=== PATIENT | male | born 1970 | race Caucasian/White ===

== ENCOUNTER 2023-11-16 18:54 | Emergency (ER) | payer BC, SELFPAY ==
[2023-11-16 19:05] VITALS: BP 162/83; PULSE 80; RESP 16; TEMP 36.8; O2SAT 99
--- NOTE | 2023-11-16 19:10 | ED.GENADULT ---
HPI - General Adult General Chief complaint: Skin/Abscess/Foreign Body Stated complaint: Nose Pain Time Seen by Provider: 11/16/23 19:14 Source: patient Mode of arrival: ambulatory Limitations: no limitations History of Present Illness HPI narrative: 53-year-old male presented for complaint of a sore to the right nostril. Onset 2 days. States he has had this same infection before and was told by a appeals officer it is a 'herpetic infection' and needs valacyclovir. Endorses swollen lymph nodes under the chin. Also endorses poor dentition, but denies significant dental pain. Denies any other complaints at this time. Related Data Home Medications Medication Instructions Recorded Confirmed alprazolam 0.5 mg tablet 0.5 mg PO TID 11/16/23 11/16/23 bupropion HCl 75 mg tablet 75 mg PO DAILY 11/16/23 11/16/23 clomiphene citrate 50 mg tablet 50 mg PO 3XW 11/16/23 11/16/23 lisinopril 5 mg tablet 5 mg PO DAILY 11/16/23 11/16/23 testosterone cypionate 200 mg/mL 200 mg IM Q12D 11/16/23 11/16/23 intramuscular oil Allergies Allergy/AdvReac Type Severity Reaction Status Date / Time codeine Allergy Mild Itching Verified 11/16/23 19:15 Review of Systems Review of Systems: CONSTITUTIONAL: Denies body aches, fever, chills, or sweats. EYES: Denies visual changes, redness, or discharge. ENT: reports lymph node swelling Denies rhinorrhea, congestion CARDIOVASCULAR: Denies chest pain, palpitations, or edema. RESPIRATORY: Denies cough or dyspnea. GASTROINTESTINAL: Denies abdominal pain, nausea, vomiting, or diarrhea. SKIN: reports sore in nostril MUSCULOSKELETAL: Denies back pain, joint pain, or myalgia. NEUROLOGIC: Denies headache, numbness, tingling, or weakness. [facility] Past Medical History Medical History (Updated 11/16/23 @ 19:35 by Amara Estes APRN) Hypertension Comments At time of signature, I have reviewed and agree with nursing past medical, surgical, social and family history unless otherwise noted. Please see nursing chart for further information. There is no relevant family history pertinent to the presenting complaint Exam Narrative: GENERAL: Well-appearing HEAD: Normocephalic, atraumatic. EYES: conjunctivae clear, and EOMI. ENT: Mucous membranes moist.Right nare with approx 1cm diameter raised tender lesion, mild serous drainage. Oropharynx without edema, erythema or lesions. NECK: Supple. Submental lymphadenopathy. No erythema or swelling. Full ROM to neck. CHEST: Clear to auscultation. HEART: Regular rate and rhythm. SKIN: Warm, dry. NEURO: Alert and oriented x3. HENMT: Nose image: 1. area of raised lesion right nare Course Course Emergency Course: Patient is aware of diagnosis, understands and agrees to treatment plan. Anticipatory guidance given. Patient agrees to follow-up as directed and is aware of reasons to seek care at the emergency department. Portions of this record may have been created with voice recognition software Level of Care: Express Care Visit Vital Signs Vital signs: Vital Signs Temperature 98.2 F 11/16/23 19:05 Pulse Rate 80 11/16/23 19:05 Respiratory Rate 16 11/16/23 19:05 Blood Pressure 162/83 H 11/16/23 19:05 Pulse Oximetry 99 11/16/23 19:05 Oxygen Delivery Room Air 11/16/23 19:05 Temperature 98.2 F 11/16/23 19:05 Pulse Rate 80 11/16/23 19:05 Respiratory Rate 16 11/16/23 19:05 Blood Pressure 162/83 H 11/16/23 19:05 Pulse Oximetry 99 11/16/23 19:05 Oxygen Delivery Room Air 11/16/23 19:05 Reviewed Medical Decision Making MDM Narrative Medical decision making narrative: Discussed physical exam findings. Pt is adamant he requires valacyclovir for this infection in right nare; will send rx along with Augmentin for possible likely dental infection as well. Discussed risk of danger triangle infection, v/u. Advised supportive measures and signs/symptoms to go to the ER. Pt is appropriate for outpt treat
[2023-11-16 19:19] VITALS: BP 162/83; PULSE 80; RESP 16; TEMP 36.8; O2SAT 99
== END 2023-11-16 19:38 | disposition home or self-care (01) ==
PROVIDERS: Emergency Provider Nurse Practitioner Family
DX: J34.89 Other specified disorders of nose and nasal sinuses (principal); R59.1 Generalized enlarged lymph nodes; K02.9 Dental caries, unspecified; I10 Essential (primary) hypertension; Z79.899 Other long term (current) drug therapy
CPT/HCPCS: 99213; G0463

== ENCOUNTER 2023-12-16 14:25 | Emergency (ER) | payer BC, SELFPAY ==
[2023-12-16 14:33] VITALS: BP 167/83; PULSE 64; RESP 18; TEMP 36.6; O2SAT 100
--- NOTE | 2023-12-16 14:38 | ED.SKABFB ---
HPI - Skin/Abscess/Foreign Bdy General Chief complaint: Skin/Abscess/Foreign Body Stated complaint: Nose Pain Time Seen by Provider: 12/16/23 14:27 Source: patient Mode of arrival: ambulatory Limitations: no limitations History of Present Illness HPI narrative: Patient is a 53-year-old male who presents with wound to left nare. Patient was seen here 11/15 and was given antiviral and also treated with antibiotic for dental infection. Patient was seen by dentist this week and had tooth extracted. Patient to start on amoxicillin from dentist. Patient has PCP appointment the end of the month. Denies any fever, chills, nausea, vomiting, diarrhea. Reports wound is tender to touch hand crusted over. Related Data Home Medications Medication Instructions Recorded Confirmed alprazolam 0.5 mg tablet 0.5 mg PO TID 11/16/23 12/16/23 bupropion HCl 75 mg tablet 75 mg PO DAILY 11/16/23 12/16/23 clomiphene citrate 50 mg tablet 50 mg PO 3XW 11/16/23 12/16/23 lisinopril 5 mg tablet 5 mg PO DAILY 11/16/23 12/16/23 testosterone cypionate 200 mg/mL 200 mg IM Q12D 11/16/23 12/16/23 intramuscular oil amoxicillin 500 mg tablet 500 mg PO DAILY 12/16/23 12/16/23 Allergies Allergy/AdvReac Type Severity Reaction Status Date / Time codeine Allergy Mild Itching Verified 12/16/23 14:35 Review of Systems Review of Systems: All systems reviewed & are unremarkable except as noted in HPI and below Constitutional: Constitutional: Denies body ache(s), Denies chills, Denies fatigue, Denies fever(s), Denies headache(s), Denies malaise and Denies weakness Eyes: Eyes: Denies blurry vision, Denies irritation and Denies loss of vision ENT: Denies otalgia, Denies headache(s), Denies nasal discharge, Denies sinus pain and Denies sore throat Cardiovascular: Cardiovascular: Denies chest pain, Denies irregular heart rhythm and Denies dyspnea Respiratory: Respiratory: Denies dyspnea Gastrointestinal: Gastrointestinal: Denies abdominal pain, Denies melena, Denies hematochezia, Denies diarrhea, Denies nausea and Denies vomiting Musculoskeletal: Musculoskeletal: Denies back pain, Denies myalgias and Denies arthralgias Integumentary/Breasts: Skin/Breast: Denies pruritus, Denies rash and Reports wounds Neurologic: Denies headache(s), Denies loss of vision and Denies weakness Psychiatric: Psychiatric: Reports no additional psychiatric complaints Endocrine: Endocrine: Denies fatigue PMFSH Past Medical History Medical History Hypertension Comments At time of signature, agree with nursing past medical, surgical, social and family history. There is no relevant family history pertinent to the presenting complaint. Exam Const: General: cooperative, healthy appearing, comfortable, no acute distress and well nourished Nutritional Appearance: well nourished Orientation/consciousness: patient oriented x3 Limitations: no limitations HENMT: Head: normal to inspection, normocephalic and atraumatic Ears: hearing grossly normal bilaterally and external ears normal Face/Nose/Sinus: Normal external nose present, normal facial exam and face symmetric Nose image: 1. Area of tenderness, redness and honey-colored crusting. No active drainage Face and sinus: normal facial exam and face symmetric Mouth: Yes lip normal Eyes: General: appearance normal, both eyes and all related structures Alignment and Position: alignment normal and position normal Periorbital: periorbital findings normal Eyelids: eyelids normal Pupils: Equal, round and reactive pupils present EOM: EOMs intact bilaterally Neck: Neck: normal visual inspection, full ROM and supple Chest: Chest palpation & inspection: normal inspection of the chest Resp: Effort & Inspection: normal respiratory effort and able to speak in complete sentences Auscultation: clear to auscultation bilaterally Cardio: Rate: regular rate Rhythm: regular rhythm
== END 2023-12-16 15:10 | disposition home or self-care (01) ==
PROVIDERS: Emergency Provider Nurse Practitioner Family
DX: S01.20XA Unspecified open wound of nose, initial encounter (principal); X58.XXXA Exposure to other specified factors, initial encounter; I10 Essential (primary) hypertension
CPT/HCPCS: 87070; 87075; 87205; 87252; 99213; G0463

== ENCOUNTER 2024-08-16 12:40 | Emergency (ER) | payer BC, SELFPAY ==
--- NOTE | ~2024-08-16 | XR_ITS ---
XR ankle RT min 3V Ordering provider: Carmella Betancourt MD History: . injury, right ankle pain, wrapped due to previous ER visit . Comparison: None. FINDINGS: BONES: Oblique fracture is seen in the lateral malleolus extending to the joint space. No significant displacement. Possibility of fracture of the posterior malleolus of the tibia is not excluded. Follo w sided lower lumbar mass JOINT SPACES: Normal. SOFT TISSUES: Soft tissue swelling seen over the lateral malleolus. IMPRESSION: Fracture in the lateral malleolus. Reviewed, dictated and finalized at location A. TITATIVE DEVELOPER
[2024-08-16 12:46] VITALS: BP 141/70; PULSE 87; RESP 16; TEMP 37.1; O2SAT 99
--- NOTE | 2024-08-16 14:26 | ED_ITS ---
HPI - Extremity Injury (Lower) General Chief Complaint: Extremity Injury, Lower Stated Complaint: injury to leg Time Seen by Provider: 08/16/24 14:26 Focused HPI: This is a 54 year old male that presents to the ER for orthopedics referral. Reports he slipped in the bathroom and sustained a fracture to his right fibula. He was seen at another hospital, but their orthopedics doctor was not able to see him for a week which prompted him to be seen. He has a splint in place and has been using a walker. GENERAL: Well-appearing, well-nourished, and in no acute distress. HEAD: Normocephalic, atraumatic. CHEST: Clear to auscultation. ?No respiratory distress. HEART: Regular rate and rhythm.? NEURO: ?Alert and oriented x3. Patient screened in triage and initial orders placed.? ?Additional care and disposition to be based upon?diagnostic testing and treatment. Related Data Home Medications ?Medication ?Instructions ?Recorded ?Confirmed ?Last Taken ?Type alprazolam 0.5 mg tablet 0.5 mg PO TID 11/16/23 12/16/23 Unknown History bupropion HCl 75 mg tablet 75 mg PO DAILY 11/16/23 12/16/23 Unknown History clomiphene citrate 50 mg tablet 50 mg PO 3XW 11/16/23 12/16/23 Unknown History lisinopril 5 mg tablet 5 mg PO DAILY 11/16/23 12/16/23 Unknown History testosterone cypionate 200 mg/mL 200 mg IM Q12D 11/16/23 12/16/23 Unknown History intramuscular oil amoxicillin 500 mg tablet 500 mg PO DAILY 12/16/23 12/16/23 Unknown History Allergies Allergy/AdvReac Type Severity Reaction Status Date / Time codeine Allergy Mild Itching Verified 12/16/23 14:35 Review of Systems Review of Systems: CONSTITUTIONAL: Denies fever MUSCULOSKELETAL: Reports joint pain, and myalgia. NEUROLOGIC: Denies numbness, or weakness. All systems reviewed & are unremarkable except as noted in HPI and below PMFSH Past Medical History Medical History Hypertension Social History Social History (Updated 08/16/24 @ 17:08 by Belinda Zaldivar PA-C) Substance use: never Exam Narrative: GENERAL: Well-appearing, well-nourished, and in no acute distress. HEAD: Normocephalic, atraumatic. EYES: EOMI. EXTREMITIES: Splint in place to the right ankle SKIN: Warm, dry, no rash. NEURO: No focal deficits. Alert and oriented x3. PSYCH: Normal mood and affect Course Course Emergency Course: patient updated on workup and agrees with plan of care Vital Signs Vital signs: Vital Signs Temperature 98.7 F 08/16/24 12:46 Pulse Rate 87 08/16/24 12:46 Respiratory Rate 16 08/16/24 12:46 Blood Pressure 141/70 H 08/16/24 12:46 Pulse Oximetry 99 08/16/24 12:46 Temperature 97.8 F 08/16/24 17:15 Pulse Rate 76 08/16/24 17:15 Respiratory Rate 16 08/16/24 17:15 Blood Pressure 132/80 08/16/24 17:15 Pulse Oximetry 98 08/16/24 17:15 MDM - Extremity Injury (Lower) MDM Narrative Medical decision making narrative: Patient presents to the emergency department for a right ankle fracture, for second evaluation. Reporting wants referral to an orthopedic doctor. He was started a seen at another facility already. His splint was replaced today. Will be given follow-up with our orthopedics doctor if needed. He was given warnings to return to the ER Differential Diagnosis Differential diagnosis: Likely ankle fracture Imaging Data Radiologist's impression: ITS Impressions Ankle X-Ray 08/16/24 13:18 IMPRESSION: Fracture in the lateral malleolus. Critical Care Time Critical Care Time Critical Care Time: No Discharge Plan Discharge Clinical Impression: Closed fracture of distal end of right tibia Qualifiers: Encounter type: subsequent encounter Fracture morphology: unspecified fracture morphology Fracture healing: with routine healing Qualified Code(s): S82.301D - Unspecified fracture of lower end of right tibia, subsequent encounter for closed fracture with routine healing Patient Disposition: Home, Self-Care Condition: Stable Instructions: Ankle Fracture (ED) Additional Instructions: Return to the ER if you experience fever, redness and swelling of your extremit y, numbness or any other symptoms that are concerning to you Wear splint. No weight on the affected leg. Ice and elevate extremity. Pain medication as needed and directed. Follow up with orthopedics for further care. Patient Language: Albanian Prescriptions: No Action clomiphene citrate 50 mg tablet 50 mg PO 3XW alprazolam 0.5 mg tablet 0.5 mg PO TID bupropion HCl 75 mg tablet 75 mg PO DAILY lisinopril 5 mg tablet 5 mg PO DAILY testosterone cypionate 200 mg/mL oil 200 mg IM Q12D amoxicillin 500 mg tablet 500 mg PO DAILY mupirocin 2 % ointment 1 applic topical BID Qty: 15 0RF Follow-up/Referrals: PHYSICIAN NOT ON STAFF,NONSTAFF [Non-Staff] - Micah Walters MD [Physician] -
[2024-08-16 17:15] VITALS: BP 132/80; PULSE 76; RESP 16; TEMP 36.6; O2SAT 98
== END 2024-08-16 17:18 | disposition home or self-care (01) ==
PROVIDERS: Emergency Provider Physician Assistant
DX: S82.61XA Displaced fracture of lateral malleolus of right fibula, initial encounter for closed fracture (principal); I10 Essential (primary) hypertension; Z79.899 Other long term (current) drug therapy; W01.0XXA Fall on same level from slipping, tripping and stumbling without subsequent striking against object, initial encounter
CPT/HCPCS: 29515; 73610; 99284

== ENCOUNTER 2024-08-19 12:06 | Outpatient (CLI) | payer BC, SELFPAY ==
--- NOTE | 2024-08-19 12:15 | ECG_ITS ---
Test Date: 2024-08-19 12:23:19 Measurements Intervals [place] Rate: 73 P: 81 MD: 160 QRS: 75 QRSD: 102 T: 38 QT: 399 QTc: 441 Interpretive Statements SINUS RHYTHM No previous ECG available for comparison Electronically Signed On 08-19-2024 13:02:36 PARKING WORKER by Mani Loyola M.D.
--- OUTSIDE RECORDS SUMMARY | 2024-08-23 12:05 | XMS_ITS | Encounter Summary ---
Author Organization [facility] Address [address] [place] [address] Care Team Providers Care Dust Box Worker Name Role Phone Mandy Lyles DO Primary Care Provider Reason for Visit * Reason Comments Medication Refill Encounter Details Date Type Department Care Team ([facility] st Contact Info) Description 07/09/2023 Refill [facility] Family Practice [address] [place] [address] Mandy Lyles DO [address] [place] [address] Medication Refill Social History Tobacco Use Types Packs/Day Years Used Date Smoking Tobacco: Some Days Cigarettes Last attempted to quit: 01/22/2015 Smokeless Tobacco: Former Comments:Exposed to second h and smoke Alcohol Use Standard Drinks/Week Comments Not Currently 0 (1 standard drink = 0.6 oz pur e alcohol) occasional PHQ-2 Answer Date Recorded PHQ-2 Score 2 06/02/2023 Alcohol Use Answer Date Recorded Frequency of Alcohol Consumption Not on file 03/11/2022 Average Number of Drinks Not on file 022 Frequency of Binge Drinking Not on file 02/2022 Alcohol Use Status Not Currently 03/11/2022 Average alcohol consumption Not on file 02/2022 Sex and Gender Information Value Date Recorded Sex Assigned at Not on file Gender Identity Not on file Sexual Orientation Not on file COVID-19 Exposure Response Date Recorded In the last 10 days, have yo u been in contact with someone who was confirmed or suspected to have Coronavirus/COVID-19? No / Unsure 07/06/2023 8:08 AM CDT documented as of this encounter Miscellaneous Notes * Telephone Encounter - Jesi Loaiza LPN - 07/12/2023 10:23 AM CST ACID CLEANER printed. TIFIER HORSE * Telephone Encounter - Jazmine Richmond - 07/09/2023 3:38 PM CDT PT JOHN VELIZ 74 CALLED BACK INTO THE OFFICE STATING HE WAS WONDERING IF HE COULD POSSIBLY GET HIS MEDICINE REFILLED SINCE HE WILL BE WORKING OUT OF TOWN STARTING EARLY Wednesday MORNING 07/12/23. HE WOULD LIKE A CALL BACK AT [phone] WHEN IT IS SENT. documented in this encounter Plan of Treatment Not on file documented as of this encounter Visit Diagnoses Diagnosis IGGY (generalized anxiety disorder) Generalized anxiety disorder documented in this encounter Care Teams Dust Box Worker Relationship Specialty Start Date End Date Mandy Lyles DO [address] [place] [phone] PCP - General Family Medicine 06/02/23 08/10/23 documented as of this encounter
--- OUTSIDE RECORDS SUMMARY | 2024-08-23 12:05 | XMS_ITS | Encounter Summary ---
Author Organization [facility] Address [address] [place] [address] Care Team Providers Care Rock Wool Insulator Name Role Phone Joanna Mckeon NP Primary Care Provider [phone] Reason for Visit * Reason Comments Medication Refill Encounter Details Date Type Department Care Team (Late st Contact Info) Description 10/02/2023 Refill [facility] Urology [address] [place] [phone] Hi Deluna MD [address] [place] [phone] Medication Refill Social History Tobacco Use [...] on file Sexual Orientation Not on file documented as of this encounter Plan of Treatment Not on file documented as of this encounter Visit Diagnoses Diagnosis Male hypogonadism Other testicular hypofunction documented in this encounter Care Teams Rock Wool Insulator Relationship Specialty Start Date End Date Joanna Mckeon NP [address] [place] [address] PCP - General Physician Gas Cutter 08/31/23 documented as of this encounter
--- OUTSIDE RECORDS SUMMARY | 2024-08-23 12:05 | XMS_ITS | Encounter Summary ---
Author Organization [facility] Address [address] [place] [address] Care Team Providers Care Automotive Consultant Name Role Phone Mandy Lyles DO Primary Care Provider [phone] Encounter Details Date Type Department Care Team (Late st Contact Info) Description 08/06/2023 Orders Only [facility] Family Practice [address] [place] [address] [place] [address] [place] [phone] IGGY (generalized anxiety disorder); termite treater prescription benzodiazepine use Social History Tobacco Use Types Packs/Day Years [...] IGGY (generalized anxiety disorder) Generalized anxiety disorder termite treater prescription benzodiazepine use documented in this encounter Care Teams Automotive Consultant Relationship Specialty Start Date End Date Mandy Lyles DO [address] [place] [phone] PCP - General Family Medicine 06/02/23 08/10/23 documented as of this encounter
--- OUTSIDE RECORDS SUMMARY | 2024-08-23 12:05 | XMS_ITS | Encounter Summary ---
Author Organization [facility] Address [address] [place] [address] Care Team Providers Care Actuarial Manager Name Role Phone Mandy Lyles DO Primary Care Provider [phone] Encounter Details Date Type Department Care Team (Late st Contact Info) Description 07/06/2023 9:15 AM CDT Lab/X-Ray Only [facility] Lab [address] [place] [address] Mandy Lyles DO [address] [place] [address] Dizziness; Palpitations Social History Tobacco Use Types Packs/Day Years [...] AM CDT documented as of this encounter Plan of Treatment Not on file documented as of this encounter Procedures Procedure Name Priority Date/Time Associated Diagnosis Comments TSH THIRD GENERATION Routine 07/06/2023 9:07 AM CDT Dizziness Palpitations CBC W AUTO DIFF Routine 07/06/2023 9:07 AM CDT Dizziness Palpitations MAGNESIUM Routine 07/06/2023 9:07 AM CDT Dizziness Palpitations COMPREHENSIVE METABOLIC PANEL Routine 07/06/2023 9:07 AM CDT Dizziness Palpitations documented in this encounter Results * MAGNESIUM (07/06/2023 9:07 AM CDT) Magnesium 2.2 1.9 - 2.7 MG/DL [facility] [email or web address] Blood 07/06/2023 9:07 AM CDT 07/06/2023 9:10 AM CDT Mandy Lyles DO CHEMISTRY ORDERABLES Performing Organization Address City/[facility]/ZIP Co de Phone Number [facility] [email or web address] [address] [place] [address] * TSH THIRD GENERATION (07/06/2023 9:07 AM CDT) TSH 1.27 0.05-3.70 FEMALES, 1ST TRIMESTER 0.31-4.35 FEMALES, 2ND TRIMESTER 0.41-5.18 FEMALES, 3RD TRIMESTER 0.45 - 5.33 uIU/mL [facility] [email or web address] Blood 07/06/2023 9:07 AM CDT 07/06/2023 9:10 AM CDT Mandy Lyles DO CHEMISTRY ORDERABLES Performing Organization Address [facility] Co de Phone Number [facility] [employer] [address] [place] [address] * (ABNORMAL) CBC W AUTO DIFF (07/06/2023 9:07 AM CDT) White Blood Cell Count 5.3 4.8 - 9.6 THOUS/uL [facility] Red Blood Cell Count 5.25 4.33 - 5.59 MIL/uL [facility] Hemoglobin 16.8 13.1 - 16.8 GM/DL [facility] Hematocrit 49.6(H) 38.8 - 49.0 % [facility] Mean Corpuscular Volume 94.5(H) 82.7 - 94.4 FL [facility] Mean Corpuscular Hemoglobin 32.0 27.7 - 32.6 PG [facility] Mean Corpuscular Hemoglobin Conc 33.9 32.4 - 35.7 G/DL [facility] Rdwcv 12.1 11.6 - 13.9 % [facility] Rdwsd 42.0 36.0 - 46.1 [facility] Platelet Count 210 154 - 364 THOUS/uL [facility] Mean Platelet Volume 9.8 8.7 - 11.7 [facility] Differential Type AUTO FE [facility] Neutrophils 63.9 34.0 - 67.9 % [facility] Lymphs 22.7 19.1 - 41.2 % [facility] Monocytes 9.9 6.1 - 12.3 % [facility] Eos 1.7 0.9 - 7.6 % [facility] Basos 1.0 0.2 - 1.5 % [facility] Neutrophils Absolute Count 3.4 2.7 - 5.8 THOUS/uL [facility] Lymphocytes Absolute Count 1.2 1.1 - 3.3 THOUS/uL [facility] Monocytes Absolute Count 0.5 0.4 - 0.9 THOUS/uL [facility] Eosinophils Absolute Count 0.1 0.1 - 0.6 THOUS/uL [facility] Basophils Absolute Count 0.1 0.0 - 0.1 THOUS/uL [facility] Imm Gran 0.8 0.2 - 0.9 % [facility] Abs Imm Gran 0.04 0.0 - 0.1 THOUS/uL [facility] Blood 07/06/2023 9:07 AM CDT 07/06/2023 9:10 AM CDT Mandy Lyles DO HEMATOLOGY ORDERABLE S Performing Organization Address City/State/[facility] Co de Phone Number [facility] [address] [place], [place] [address] * (ABNORMAL) COMPREHENSIVE METABOLIC PANEL (07/06/2023 9:07 AM CDT) Glucose 107 74 - 109 MG/DL [facility] Blood Urea Nitrogen 13 7 - 25 MG/DL [facility] Creatinine 1.3 0.6 - 1.3 MG/DL [facility] Sodium 140 136 - 145 MMOL/L [facility] Potassium 3.9 3.5 - 5.1 MMOL/L [facility] Chloride 102 98 - 107 MMOL/L [facility] Co2 33(H) 21 - 31 MMOL/L [facility] Calcium 9.3 8.6 - 10.3 MG/DL [facility] Protein Total 7.1 6.4 - 8.9 G/DL [facility] Albumin 4.6 3.5 - 5.7 G/DL [facility] A/G Ratio 1.8 0.8 - 2.0 [facility] Alkaline Phosphatase 69 34 - 104 U/L [facility] Alt (SGPT) 20 7 - 52 U/L [facility] AST(SGOT) 16 13 - 39 U/L [facility] Bilirubin, Total 1.2(H) 0.3 - 1.0 MG/DL [facility] GFR Comment IF PATIENT IS , MULTIPLY RESULT BY 1.16 [facility] Est GFR 63(L) >90 ML/MIN/1. 73sq.m [facility] Blood 07/06/2023 9:07 AM CDT 07/06/2023 9:10 AM CDT Mandy Lyles DO CHEMISTRY ORDERABLES [facility] [address] documented in this encounter Visit Diagnoses Diagnosis Dizziness Dizziness and giddiness Palpitations documented in this encounter Care Teams Actuarial Manager Relationship Specialty Start Date End Date Mandy Lyles DO [address] [place] [phone] PCP - General Family Medicine 06/02/23 08/10/23 documented as of this encounter
--- OUTSIDE RECORDS SUMMARY | 2024-08-23 12:05 | XMS_ITS | Encounter Summary ---
Author Organization [facility] Address [address] [place] [address] Care Team Providers Care Machine Brush Maker Name Role Phone Mandy Lyles DO Primary Care Provider [phone] Reason for Visit * Reason Onset Date Comments Results 07/13/2023 Encounter Details Date Type Department Care Team ([facility] st Contact Info) Description 07/13/2023 Telephone [facility] Practice [address] [place] [address] Mandy Lyles DO [address] [place] [address] Results Social History Tobacco Use Types Packs/Day Years [...] Telephone Encounter - Jesi Loaiza LPN - 07/14/2023 10:49 AM CST Alma Rosa called back and states patient did have an EKG the day his Zio Monitor was placed. IC TEACHER * Telephone Encounter - Jesi Loaiza LPN - 07/14/2023 8:49 AM CST Spoke with Alma Rosa in Respiratory and she states that she will check the machine and see if they can find any discrepancies but if we have a result an EKG was done. IC TEACHER * Telephone Encounter - Mandy Lyles DO - 07/13/2023 6:59 PM CST Please check with RT department. IC TEACHER * Telephone Encounter - Jesi Loaiza LPN - 07/13/2023 4:23 PM CST Patient notified of normal EKG and states that they did not do an EKG on him. Patient states they just put his heart monitor on and told him to mail it in when his time was up. IC TEACHER * Telephone Encounter - Jesi Loaiza LPN - 07/13/2023 4:23 PM CST ----- Message from Mandy Lyles DO sent at 07/13/2023 4:08 PM ARABIC TEACHER ----- Please notify patient of normal result. IC TEACHER documented in this encounter Plan of Treatment Not on file documented as of this encounter Visit Diagnoses Not on filedocumented in this encounter Care Teams Machine Brush Maker Relationship Specialty Start Date End Date Mandy Lyles DO [address] [place] [phone] PCP - General Family Medicine 06/02/23 08/10/23 documented as of this encounter
--- OUTSIDE RECORDS SUMMARY | 2024-08-23 12:05 | XMS_ITS | Encounter Summary ---
Author Organization [facility] Address [address] [place] [address] Care Team Providers Care Strap Maker Name Role Phone Mandy Lyles DO Primary Care Provider [phone] Reason for Visit * Reason Onset Date Comments Results 08/17/2023 Encounter Details Date Type Department Care Team ([facility] st Contact Info) Description 08/17/2023 Telephone [facility] [address] [place] [address] [place] [address] [place] [phone] Results Social History Tobacco Use Types [...] on file documented as of this encounter Miscellaneous Notes * Telephone Encounter - Jesi Loaiza LPN - 08/17/2023 3:37 PM CST Patient notified of normal Zio monitor and voiced understanding. OR CYTOGENETICS LABORATORY DIRECTOR * Telephone Encounter - Jesi Loaiza LPN - 08/17/2023 3:36 PM CST ----- Message from Mandy Lyles DO sent at 08/17/2023 10:35 AM SENIOR CYTOGENETICS LABORATORY DIRECTOR ----- Please notify patient of normal result. OR CYTOGENETICS LABORATORY DIRECTOR documented in this encounter Plan of Treatment Not on file documented as of this encounter Visit Diagnoses Not on filedocumented in this encounter Care Teams Strap Maker Relationship Specialty [place] [address] [place] [phone] PCP - General Family Medicine 08/17/23 08/30/23 documented as of this encounter
--- OUTSIDE RECORDS SUMMARY | 2024-08-23 12:05 | XMS_ITS | Encounter Summary ---
Author Organization [facility] Address [address] [place] [id number] Care Team Providers Care Caterer'S Aide Name Role Phone Mandy Lyles DO Primary Care Provider [phone] Reason for Visit * Reason Onset Date Comments Other 07/08/2023 Encounter Details Date Type Department Care Team ([facility] st Contact Info) Description 07/08/2023 Telephone [facility] [address] [place] [phone] Mandy Lyles DO [address] [place] [address] Other Social History Tobacco Use Types Packs/Day Years [...] encounter Miscellaneous Notes * Telephone Encounter - Mandy Lyles DO - 07/12/2023 9:10 AM CST Had long discussion with the patient ethanol use his visit on 07/06/23. Also discussed with family Medicine would not continuing his Xanax and taper would be prescribed unless rx for xanax was prescribed by psychiatrist (if he/she felt it was appropriate.) Will give patient tapered dose of xanax and one week supply until we get records from psychiatry for appointment tomorrow. senior payroll specialist reviewed. No discrepancies. BIKE RACER * Telephone Encounter - Zuleika Joseph CNA - 07/09/2023 11:57 AM CDT Pt stated it is due on the and that is a Wednesday and is needing to get it done tomorrow. * Telephone Encounter - Jesi Loaiza LPN - 07/08/2023 1:37 PM CDT ENOLOGIST printed. documented in this encounter Plan of Treatment Not on file documented as of this encounter Visit Diagnoses Diagnosis IGGY (generalized anxiety disorder) Generalized anxiety disorder documented in this encounter Care Teams Caterer'S Aide Relationship Specialty Start Date End Date Mandy Lyles DO [address] [place] [phone] PCP - General Family Medicine 06/02/23 08/10/23 documented as of this encounter
--- OUTSIDE RECORDS SUMMARY | 2024-08-23 12:05 | XMS_ITS | Encounter Summary ---
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 Yes Develop Plan of Care? Yes Treatment? Yes Comments kerry Pt/ot Reason for Visit * Reason Comments Dizziness C/o having vertigo f or the last 2-3 weeks. Is wanting a referral to a place in [place] for this. Encounter Details Date Type Department Care Team ([facility] st Contact Info) Description 07/06/2023 8:00 AM CDT Office Visit [facility] [address] [place] [phone] [place] [address] [place] [phone] Dizziness (Primary Dx); Hypertension, unspecified type; Palpitations; IGGY (generalized anxiety disorder) Social History Tobacco Use Types Packs/Day Years Used Date Smoking Tobacco: Some Days Cigarettes Last attempted to quit: 01/22/2015 Smokeless Tobacco: Former Tobacco Cessation:Ready to Q uit: Not Asked; Counseling Given: Not Answered Comments:Exposed to second hand smoke Alcohol Use Standard Drinks/Week Comments Not [...] AM CDT documented as of this encounter Last Filed Vital Signs Vital Sign Reading Time Taken Comments Blood Pressure 152/92 07/06/2023 8:56 AM CDT Pulse 87 07/06/2023 8:12 AM CDT Temperature 35.1 ??C (95.2 ??F) 07/06/2023 8:12 AM CD T Respiratory Rate 18 07/06/2023 8:12 AM CDT Oxygen Saturation 99% 07/06/2023 8:12 AM CDT Inhaled Oxygen Concentration - - Weight 82.2 kg (181 lb 3.2 oz) 07/06/2023 8:12 A M CDT Height 177.8 cm (5' 10 ) 07/06/2023 8:12 AM CDT Body Mass Index 26 07/06/2023 8:12 AM CDT documented in this encounter Patient Instructions * Patient Instructions* Bob Lyles DO - 07/06/2023 8:00 AM CDT Referral has been placed for physical therapy. It may take a few days to hear back about an appointment, but if you have not heard about your appointment date and time within a week, please give my office a call and let us know. If you utilize [employer], you will likely see test results before your physician is able to review them. Please allow 3 business days from time of release of results for physician's office to contact you with interpretation before calling the office for results. Check blood pressure 3 times per week. Keep a log of pressures. Bring your log AND your blood pressure cuff to your next appointment. Unless Contraindicated, I recommend the following lifestyle modifications to help control your blood pressure: use alcohol in moderation -abstain from binge drinking. Limit daily consumption to 1 standard drink per day for women into for med diet -increase consumption of dairy, fruits, polyunsaturated fats, vegetables, and whole grains -increase consumption of food time calcium, magnesium, potassium (e.g. avocados, legumes, nuts, seeds, tofu) -increase consumption of vegetables high nitrites (e.g. leafy vegetables, beet root) -reduce consumption of foods high in sugar, and saturated or trans fats healthy drinks -Consider hibiscus tea, beet root juice -moderate consumption of coffee and tea Physical activity -add strength resistance training 2-3 days per week -perform moderate intensity aerobic activity (e.g. walking, jogging, cycling, yoga, swimming) at least 5 days per week Salt reduction -avoid adding salt when cooking or dining -limit consumption of high salt foods including fast foods, processed foods, and soy sauce Smoking cessation -recommend smoking cessation clear overall health but especially for hypertension and cardiovascular risk reduction. -please ask your doctor about smoking cessation programs and adjunct medications when ready Stress reduction -practice daily mindfulness or meditation which appears to improve blood pressure measurements documented in this encounter Progress Notes * Bob Lyles DO - 07/06/2023 8:00 AM CDT Images from the original note were not included. OFFICE NOTE Subjective: 53 y.o. year old male presents to clinic with complaint of Chief Complaint Patient presents with ??? Dizziness C/o having vertigo for the last 2-3 weeks. Is wanting a referral to a place in [place] for this. Dizziness - Brandon, Bob Quiles, DO 07/06/23 1014 Written 53-year-old male with a history of HTN, alcohol use disorder, benzodiazepine use presents to cliniccomplaining of dizziness. Patient is a difficult historian. He says his dizziness started when he was taking the metoprolol though he has been on metoprolol for some time and has been out for 4 days prior to his appointment in May when it was restarted at 12.5 mg p.o. daily. Patient says thatthe metoprolol was giving him palpitations and made him feel dizzy. Has been off of the metoprolol for 10 days. When asked if he was still having dizziness and palpitations patient originally said nobut then went ahead and complained of dizziness triggered by turning his head. He says that it has continued since stopping the metoprolol. Says he is having to walk slower due to the dizziness. Saysthat the dizziness may or may not be associated with palpitations. No headaches, vision changes, numbness tingling weakness, chest pain or shortness a breath. Hypertension - Rafal Bob Quiles, DO 07/06/23 1016 Written 53 y.o. male presents to clinic for follow up on hypertension. Patient is currently prescribed -Toprol-XL 12.5 mg p.o. daily. This was being used for both blood pressure control and anxiety . Patienthas discontinued metoprolol XL because he had noticed dizziness and palpitations when taking it. Although he continues to have dizziness and palpitations since stopping his metoprolol 10 days ago. Denies chest pain or shortness a breath. Would like something else for blood pressure. IGGY (generalized anxiety disorder) - Bob Lyles, DO 07/06/23 1044 Written Patient with longstanding history of generalized anxiety disorder. Has been on Xanax for over a decade. Has been using this on its own for anxiety and panic attacks until recently. Has been seeing Dr. Tanner for counseling and was thought to have a component of ADHD. Wellbutrin was added back in April by previous PCP to see if this helps with anxiety and ADHD. Patient says he does think the Wellbutrin is helping. Patient also has alcohol use disorder. Drinks 8-9 beers about once to twice per week. Patient says that he has to use his Xanax twice per day but rarely takes it a 3rd time. Patient has been referred to Psychiatry and has an appointment with a psychiatrist on 07/13/23. States he will need refill on his Xanax on 07/11/23. Current Outpatient Medications Medication Instructions ??? ALPRAZolam (XANAX) 0.5 mg, Oral, 3 TIMES DAILY PRN ??? BD HYPODERMIC NEEDLE 18G X 1 MISC USE TO DRAW UP TESTOSTERONE ??? buPROPion (WELLBUTRIN) 75 MG tablet TAKE 1 TABLET(75 MG) BY MOUTH DAILY ??? Cholecalciferol (VITAMIN D PO) 5,000 Units, Oral, DAILY ??? clomiPHENE (CLOMID) 50 MG tablet TAKE 1 TABLET BY MOUTH 3 TIMES WEEKLY ??? metoprolol succinate (TOPROL XL) 12.5 mg, Oral, DAILY ??? omeprazole (PRILOSEC) 40 mg, Oral, PRN ??? testosterone cypionate (DEPO-TESTOSTERONE) 200 MG/ML injection Inject 1 ml in large muscle every 12 days. Past Medical History: Diagnosis Date ??? Anxiety ??? Depression (disease) ??? Low testosterone in male Past Surgical History: Procedure Laterality Date ??? SHOULDER SURGERY 2001 left Social History Tobacco Use Smoking Status Some Days ??? Packs/day: 1.00 ??? Types: Cigarettes ??? Last attempt to quit: 01/22/2015 ??? Years since quittin.4 Smokeless Tobacco Former Tobacco Comments Exposed to second hand smoke Family History Problem Relation Age of Onset ??? Depression Mother ??? Depression Father ??? Alcohol Abuse Paternal Uncle Objective: Visit Vitals BP (!) 152/92 Pulse 87 Temp 95.2 ??F (35.1 ??C) (Tympanic) Resp 18 Ht 5' 10 Wt 181 lb 3.2 oz (82.2 kg) SpO2 99% BMI 26.00 kg/m?? Smoking Status Some Days BSA 2.01 m?? Physical Exam Vitals and nursing note reviewed. Constitutional: Appearance: Normal appearance. He is not ill-appearing. HENT: Head: Normocephalic. Nose: Nose normal. Mouth/Throat: Mouth: Mucous membranes are moist. Pharynx: No posterior oropharyngeal erythema. Eyes: General: No scleral icterus. Conjunctiva/sclera: Conjunctivae normal. Neck: Vascular: No carotid bruit. Cardiovascular: Rate and Rhythm: Normal rate and regular rhythm. Pulses: Normal pulses. Heart sounds: Normal heart sounds. No murmur heard. Pulmonary: Effort: Pulmonary effort is normal. No respiratory distress. Breath sounds: Normal breath sounds. Abdominal: General: Bowel sounds are normal. Palpations: Abdomen is soft. Tenderness: There is no abdominal tenderness. Musculoskeletal: Cervical back: Neck supple. Right lower leg: No edema. Left lower leg: No edema. Comments: Nicotine stains to fingers Skin: General: Skin is warm and dry. Capillary Refill: Capillary refill takes less than 2 seconds. Findings: No rash. Neurological: General: No focal deficit present. Mental Status: He is alert and oriented to person, place, and time. Cranial Nerves: No cranial nerve deficit. Gait: Gait normal. Comments: Justina Hallpike + on the right Psychiatric: Comments: Depressed affect Data: Assessment/Plan: Problem List Items Addressed This Visit IGGY (generalized anxiety disorder) (Chronic) Patient with longstanding history of generalized anxiety disorder. Has been on Xanax for over a decade. Has been using this on its own for anxiety and panic attacks until recently. Has been seeing Dr. Tanner for counseling and was thought to have a component of ADHD. Wellbutrin was added back in April by previous PCP to see if this helps with anxiety and ADHD. Patient says he does think the Wellbutrin is helping. Patient also has alcohol use disorder. Drinks 8-9 beers about once to twice per week. Patient says that he has to use his Xanax twice per day but rarely takes it a 3rd time. Patient has been referred to Psychiatry and has an appointment with a psychiatrist on 07/13/23. States he will need refill on his Xanax on 07/11/23. -I again reiterated for the patient that I do not feel that continuing Xanax with comorbid alcohol abuse disorder was in his best interest. Discussed with the patient that I would give him 1 week supply to get him to his appointment with Psychiatry and if psychiatry feels that it was in his best interest to continue the Xanax, then the psychiatrist needs to prescribe. If psychiatry did not take over the prescription for his benzodiazepine then I would prescribe him a Xanax taper. -Patient had [facility] drug screen performed on oral fluids that did not show any xanax. Detection window not available for oral secretions. Hypertension (Chronic) 53 y.o. male presents to clinic for follow up on hypertension. Patient is currently prescribed -Toprol-XL 12.5 mg p.o. daily. This was being used for both blood pressure control and anxiety . Patienthas discontinued metoprolol XL because he had noticed dizziness and palpitations when taking it. Although he continues to have dizziness and palpitations since stopping his metoprolol 10 days ago. Denies chest pain or shortness a breath. Would like something else for blood pressure. BP Readings from Last 3 Encounters: 07/06/23 (!) 152/92 06/02/23 (!) 164/94 04/07/23 (!) 156/86 Discontinue Toprol. Patient reports side effects of dizziness and palpitations. Continue with BP log at home. Begin losartan 25 mg p.o. qam Recheck labs in August a few days prior to next appointment. Relevant Medications losartan (COZAAR) 25 MG tablet Dizziness - Primary 53-year-old male with a history of HTN, alcohol use disorder, benzodiazepine use presents to cliniccomplaining of dizziness. Patient is a difficult historian. He says his dizziness started when he was taking the metoprolol though he has been on metoprolol for some time and has been out for 4 days prior to his appointment in May when it was restarted at 12.5 mg p.o. daily. Patient says thatthe metoprolol was giving him palpitations and made him feel dizzy. Has been off of the metoprolol for 10 days. When asked if he was still having dizziness and palpitations patient originally said nobut then went ahead and complained of dizziness triggered by turning his head. He says that it has continued since stopping the metoprolol. Says he is having to walk slower due to the dizziness. Saysthat the dizziness may or may not be associated with palpitations. No headaches, vision changes, numbness tingling weakness, chest pain or shortness a breath. Discussed with the patient that it was metoprolol was unlikely to be causing symptoms if he has been off of it for 10 days and was told experiencing the symptoms.. Also discussed with the patient that we often use beta iraida such as metoprolol carvedilol etcetera to treat palpitations. Patient isinsistent that he does not want to be on metoprolol anymore. -discontinue metoprolol -CBC, CMP, magnesium level, TSH, EKG, ZIO heart monitor to be worn for 2 weeks ordered today for dizziness and palpitations. -will refer to physical therapy because it sounds like there is likely a component of BPPV -keep appointment in August Relevant Orders COMPREHENSIVE METABOLIC PANEL (Completed) CBC W AUTO DIFF (Completed) TSH THIRD GENERATION (Completed) MAGNESIUM (Completed) EKG (Completed) AMB REFERRAL TO PHYSICAL THERAPY Other Visit Diagnoses Palpitations Relevant Orders COMPREHENSIVE METABOLIC PANEL (Completed) CBC W AUTO DIFF (Completed) TSH THIRD GENERATION (Completed) MAGNESIUM (Completed) EKG (Completed) Visit Orders: Orders Placed This Encounter Procedures ??? Comprehensive metabolic panel Standing Status: Future Number of Occurrences: 1 Standing Expiration Date: 07/06/2024 ??? CBC w Auto Diff Standing Status: Future Number of Occurrences: 1 Standing Expiration Date: 07/06/2024 ??? TSH Third Generation(Today) Standing Status: Future Number of Occurrences: 1 Standing Expiration Date: 01/02/2024 ??? Magnesium Standing Status: Future Number of Occurrences: 1 Standing Expiration Date: 07/06/2024 ??? Ambulatory referral to Physical Therapy Referral Priority: Routine Referral Type: Referral Referral Reason: Consult Requested Specialty: Physical Therapy Number of Visits Requested: 1 ??? EKG Standing Status: Future Number of Occurrences: 1 Standing Expiration Date: 07/06/2024 DISCHARGE MEDS: Outpatient Encounter Medications as of 07/06/2023 Medication Sig Dispense Refill ??? ALPRAZolam (XANAX) 0.5 MG tablet Take 1 tablet (0.5 mg) by mouth 3 times daily as needed 90 tablet 2 ??? BD HYPODERMIC NEEDLE 18G X 1 MISC USE TO DRAW UP TESTOSTERONE ??? buPROPion (WELLBUTRIN) 75 MG tablet TAKE 1 TABLET(75 MG) BY MOUTH DAILY 30 tablet 2 ??? Cholecalciferol (VITAMIN D PO) Take 5,000 Units by mouth daily ??? clomiPHENE (CLOMID) 50 MG tablet TAKE 1 TABLET BY MOUTH 3 TIMES WEEKLY 36 tablet 0 ??? losartan (COZAAR) 25 MG tablet Take 1 tablet (25 mg) by mouth daily 90 tablet 0 ??? [DISCONTINUED] losartan (COZAAR) 25 MG tablet Take 1 tablet (25 mg) by mouth daily 90 tablet 0 ??? [DISCONTINUED] metoprolol succinate (TOPROL XL) 25 MG XL tablet Take 0.5 tablets (12.5 mg) by mouth daily 15 tablet 2 ??? omeprazole (PRILOSEC) 40 MG capsule Take 1 capsule (40 mg) by mouth as needed ??? testosterone cypionate (DEPO-TESTOSTERONE) 200 MG/ML injection Indications: Deficient Activity of the Testis Inject 1 ml in large muscle every 12 days. 10 mL 1 No facility-administered encounter medications on file as of 07/06/2023. No follow-ups on file. - keep appointment in August Patient Instructions Referral has been placed for physical therapy. It may take a few days to hear back about an appointment, but if you have not heard about your appointment date and time within a week, please give my office a call and let us know. If you utilize [facility], you will likely see test results before your physician is able to review them. Please allow 3 business days from time of release of results for physician's office to contact you with interpretation before calling the office for results. Check blood pressure 3 times per week. Keep a log of pressures. Bring your log AND your blood pressure cuff to your next appointment. Unless Contraindicated, I recommend the following lifestyle modifications to help control your blood pressure: use alcohol in moderation -abstain from binge drinking. Limit daily consumption to 1 standard drink per day for women into for med diet -increase consumption of dairy, fruits, polyunsaturated fats, vegetables, and whole grains -increase consumption of food time calcium, magnesium, potassium (e.g. avocados, legumes, nuts, seeds, tofu) -increase consumption of vegetables high nitrites (e.g. leafy vegetables, beet root) -reduce consumption of foods high in sugar, and saturated or trans fats healthy drinks -Consider hibiscus tea, beet root juice -moderate consumption of coffee and tea Physical activity -add strength resistance training 2-3 days per week -perform moderate intensity aerobic activity (e.g. walking, jogging, cycling, yoga, swimming) at least 5 days per week Salt reduction -avoid adding salt when cooking or dining -limit consumption of high salt foods including fast foods, processed foods, and soy sauce Smoking cessation -recommend smoking cessation clear overall health but especially for hypertension and cardiovascular risk reduction. -please ask your doctor about smoking cessation programs and adjunct medications when ready Stress reduction -practice daily mindfulness or meditation which appears to improve blood pressure measurements Bob Lyles DO 07/06/2023 10:44 AM Disclaimer: [facility] now allows inpatient and outpatient progress notes to be visible to patients. Please note that these notes will include professional medical terminology that may be somewhat confusing without some interpretation from your medical professional team. The intent of progress notes is to communicate information between medical geneticist involved in your care or to serve as future reference for myself or any other provider when reviewing your medical case, as well as a reference for the patient viewing the record. Please ask a member of the medical team if you have any questions about terminology or content of the note. This detective was created in part using [employer] voice recognition software, electronically transcribed and electronically signed. Be aware that this detective may contain errors not detected by proofreading. documented in this encounter Miscellaneous Notes * Assessment & Plan Note - Bob Lyles DO - 07/06/2023 10:16 AM CDT Associated Problem(s): IGGY (generalized anxiety disorder) Patient with longstanding history of generalized anxiety disorder. Has been on Xanax for over a decade. Has been using this on its own for anxiety and panic attacks until recently. Has been seeing Dr. Tanner for counseling and was thought to have a component of ADHD. Wellbutrin was added back in April by previous PCP to see if this helps with anxiety and ADHD. Patient says he does think the Wellbutrin is helping. Patient also has alcohol use disorder. Drinks 8-9 beers about once to twice per week. Patient says that he has to use his Xanax twice per day but rarely takes it a 3rd time. Patient has been referred to Psychiatry and has an appointment with a psychiatrist on 07/13/23. States he will need refill on his Xanax on 07/11/23. -I again reiterated for the patient that I do not feel that continuing Xanax with comorbid alcohol abuse disorder was in his best interest. Discussed with the patient that I would give him 1 week supply to get him to his appointment with Psychiatry and if psychiatry feels that it was in his best interest to continue the Xanax, then the psychiatrist needs to prescribe. If psychiatry did not take over the prescription for his benzodiazepine then I would prescribe him a Xanax taper. -Patient had [facility] drug screen performed on oral fluids that did not show any xanax. Detection window not available for oral secretions. * Assessment & Plan Note - Bob Lyles DO - 07/06/2023 10:14 AM CDT Associated Problem(s): Hypertension 53 y.o. male presents to clinic for follow up on hypertension. Patient is currently prescribed -Toprol-XL 12.5 mg p.o. daily. This was being used for both blood pressure control and anxiety . Patienthas discontinued metoprolol XL because he had noticed dizziness and palpitations when taking it. Although he continues to have dizziness and palpitations since stopping his metoprolol 10 days ago. Denies chest pain or shortness a breath. Would like something else for blood pressure. BP Readings from Last 3 Encounters: 07/06/23 (!) 152/92 06/02/23 (!) 164/94 04/07/23 (!) 156/86 Discontinue Toprol. Patient reports side effects of dizziness and palpitations. Continue with BP log at home. Begin losartan 25 mg p.o. qam Recheck labs in August a few days prior to next appointment. * Assessment & Plan Note - Bob Lyles DO - 07/06/2023 10:09 AM CDT Associated Problem(s): Dizziness 53-year-old male with a history of HTN, alcohol use disorder, benzodiazepine use presents to cliniccomplaining of dizziness. Patient is a difficult historian. He says his dizziness started when he was taking the metoprolol though he has been on metoprolol for some time and has been out for 4 days prior to his appointment in May when it was restarted at 12.5 mg p.o. daily. Patient says thatthe metoprolol was giving him palpitations and made him feel dizzy. Has been off of the metoprolol for 10 days. When asked if he was still having dizziness and palpitations patient originally said nobut then went ahead and complained of dizziness triggered by turning his head. He says that it has c ontinued since stopping the metoprolol. Says he is having to walk slower due to the dizziness. Saysthat the dizziness may or may not be associated with palpitations. No headaches, vision changes, numbness tingling weakness, chest pain or shortness a breath. Discussed with the patient that it was metoprolol was unlikely to be causing symptoms if he has been off of it for 10 days and was told experiencing the symptoms.. Also discussed with the patient that we often use beta iraida such as metoprolol carvedilol etcetera to treat palpitations. Patient isinsistent that he does not want to be on metoprolol anymore. -discontinue metoprolol -CBC, CMP, magnesium level, TSH, EKG, ZIO heart monitor to be worn for 2 weeks ordered today for dizziness and palpitations. -will refer to physical therapy because it sounds like there is likely a component of BPPV -keep appointment in August * Addendum Note - Bob Lyles DO - 07/06/2023 8:00 AM CDTAddended by: BOB LYLES on: 07/07/2023 11:15 AM Modules accepted: Orders documented in this encounter Plan of Treatment Scheduled Referrals Name Type Priority Associated Diagnoses Orde r Schedule AMB REFERRAL TO PHYSICAL THERAPY Outpatient Referral Routine Dizziness Ordered: 07/07/2023 documented as of this encounter Results * EKG (07/06/2023 9:47 AM CDT) [facility] - 07/06/2023 9:47 AM CDT EKG Report Date: ??07/06/23 Time: ??09:20 Previous EKG available for comparison: Yes: 2013 The EKG showed a normal sinus rhythm with a ventricular rate of 69 bpm. ??SC interval normal at 170 ms. ??QRS duration normal at 102 ms. ??QT and QTC intervals are within normal range. ??R axis is normal at 78 degrees. ??There is no evidence of acute ST or T-wave changes. ??There is no voltage criteria for left ventricular hypertrophy. Bob Lyles DO 07/13/2023 3:58 PM Bob Lyles DO ECG ORDERABLES Performing Organization Address [facility] de Phone Number [address] * MAGNESIUM (07/06/2023 9:07 AM CDT) Magnesium 2.2 1.9 - 2.7 MG/DL [id number] [facility] Blood 07/06/2023 9:07 AM CDT 07/06/2023 9:10 AM CDT Bob Lyles DO CHEMISTRY ORDERABLES Performing Organization Address [facility] Phone Number [facility] [employer] [address] [place] [address] * TSH THIRD GENERATION (07/06/2023 9:07 AM CDT) TSH 1.27 0.05-3.70 FEMALES, 1ST TRIMESTER 0.31-4.35 FEMALES, 2ND TRIMESTER 0.41-5.18 FEMALES, 3RD TRIMESTER 0.45 - 5.33 uIU/mL [facility] Blood 07/06/2023 9:07 AM CDT 07/06/2023 9:10 AM CDT Bob Lyles DO CHEMISTRY ORDERABLES Performing Organization Address [facility] de Phone Number [facility] [address] [place] [address] * (ABNORMAL) CBC W AUTO DIFF (07/06/2023 9:07 AM CDT) White Blood Cell Count 5.3 4.8 - 9.6 THOUS/uL [facility] Red Blood Cell Count 5.25 4.33 - 5.59 MIL/uL [facility] Hemoglobin 16.8 13.1 - 16.8 GM/DL [facility] Hematocrit 49.6(H) 38.8 - 49.0 % [facility] Mean Corpuscular Volume 94.5(H) 82.7 - 94.4 [facility] Mean Corpuscular Hemoglobin 32.0 27.7 - 32.6 PG [facility] Mean Corpuscular Hemoglobin Conc 33.9 32.4 - 35.7 G/DL [facility] Rdwcv 12.1 11.6 - 13.9 % [facility] Rdwsd 42.0 36.0 - 46.1 [facility] Platelet Count 210 154 - 364 THOUS/uL [facility] Mean Platelet Volume 9.8 8.7 - 11.7 [facility] Differential Type AUTO FE [facility] Neutrophils 63.9 34.0 - 67.9 % [facility] Lymphs 22.7 19.1 - 41.2 % [facility] Monocytes 9.9 6.1 - 12.3 % [facility] Eos 1.7 0.9 - 7.6 % [facility] Basos 1.0 0.2 - 1.5 % [facility] Neutrophils Absolute Count 3.4 2.7 - 5.8 THOUS/uL [facility] Lymphocytes Absolute Count 1.2 1.1 - 3.3 THOUS/uL [facility] Monocytes Absolute Count 0.5 0.4 - 0.9 THOUS/uL [facility] Eosinophils Absolute Count 0.1 0.1 - 0.6 THOUS/uL [facility] Basophils Absolute Count 0.1 0.0 - 0.1 THOUS/uL [facility] Imm Gran 0.8 0.2 - 0.9 % [facility] Abs Imm Gran 0.04 0.0 - 0.1 THOUS/uL [facility] Blood 07/06/2023 9:07 AM CDT 07/06/2023 9:10 AM CDT Bob Etta Lyles DO HEMATOLOGY ORDERABLE S Performing Organization Address City/State/[facility] Co de Phone Number [facility] [address] * (ABNORMAL) COMPREHENSIVE METABOLIC PANEL (07/06/2023 9:07 AM CDT) Glucose 107 74 - 109 MG/DL [facility] Blood Urea Nitrogen 13 7 - 25 MG/DL [facility] Creatinine 1.3 0.6 - 1.3 MG/DL [facility] Sodium 140 136 - 145 MMOL/L [facility] Potassium 3.9 3.5 - 5.1 MMOL/L [facility] Chloride 102 98 - 107 MMOL/L [facility] Co2 33(H) 21 - 31 MMOL/L [facility] Calcium 9.3 8.6 - 10.3 MG/DL [facility] Protein Total 7.1 6.4 - 8.9 G/DL [facility] Albumin 4.6 3.5 - 5.7 G/DL [facility] A/G Ratio 1.8 0.8 - 2.0 [facility] Alkaline Phosphatase 69 34 - 104 U/L [facility] Alt (SGPT) 20 7 - 52 U/L [facility] AST(SGOT) 16 13 - 39 U/L [facility] Bilirubin, Total 1.2(H) 0.3 - 1.0 MG/DL [facility] GFR Comment IF PATIENT IS , MULTIPLY RESULT BY 1.16 [facility] Est GFR 63(L) >90 ML/MIN/1. 73sq.m [facility] Blood 07/06/2023 9:07 AM CDT 07/06/2023 9:10 AM CDT Bob Lyles DO CHEMISTRY ORDERABLES [facility] [address] documented in this encounter Visit Diagnoses Diagnosis Dizziness- Primary Dizziness and giddiness Hypertension, unspecified type Palpitations IGGY (generalized anxiety disorder) Generalized anxiety disorder Dizziness Dizziness and giddiness Palpitations documented in this encounter Care Teams [employer] Building [employer] Relationship Specialty [place] [address] [place] [address] [phone] PCP - General Family Medicine 06/02/23 08/10/23 documented as of this encounter
--- OUTSIDE RECORDS SUMMARY | 2024-08-23 12:05 | XMS_ITS | Clinical Summary ---
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 Medications Medication Sig Dispensed Refills Start Date End Date Status omeprazole (PRILOSEC) 40 MG capsule Take 1 capsule (40 mg) by mouth as needed Active Cholecalciferol (VITAMIN D PO) Take 5,000 Units by mouth daily Active BD HYPODERMIC NEEDLE 18G X 1 MISC USE TO DRAW UP TESTOSTERONE 11/19/2020 Active losartan (COZAAR) 25 MG tabletIndications: Hypertension, unspecified type Take 1 tablet (25 mg) by mouth daily 90 tablet 07/06/2023 Active ALPRAZolam (XANAX) 0.5 MG tabletIndications: IGGY (generalized anxiety disorder) Take 1 tablet (0.5 mg) by mouth 2 times daily as needed 14 tablet 2 07/12/2023 Active testosterone cypionate (DEPO-TESTOSTERONE ) 200 MG/ML injectionIndicatio ns:Male hypogonadism INJECT 1 ML IN THE MUSCLE EVERY 12 DAYS 10 mL 5 10/04/2023 Active clomiPHENE (CLOMID) 50 MG tabletIndications: Male hypogonadism TAKE 1 TABLET BY MOUTH 3 TIMES WEEKLY 36 tablet 3 10/04/2023 Active buPROPion (WELLBUTRIN) 150 MG XL tablet Take 1 tablet (150 mg) by mouth Nightly 06/26/2024 Active lisinopril (ZESTRIL) 10 MG tablet Take 1 tablet (10 mg) by mouth Nightly 06/26/2024 Active naltrexone (DEPADE) 50 MG tablet Take 1 tablet (50 mg) by mouth Nightly 06/26/2024 Active tadalafil (CIALIS) 20 MG tablet Take 1 tablet (20 mg) by mouth daily as needed 05/10/2024 Active HYDROcodone-acetam inophen (NORCO) 7.5-325 MG per tabletIndications: Closed fracture of distal end of right fibula, unspecified fracture morphology, initial encounter Take 1 tablet by mouth every 4 hours as needed 10 tablet 08/13/2024 08/15/2024 Active Problems Patient Care Coordination No te Formatting of this note migh t be different from the original. [facility] 06/02/23 Med Contract 06/02/23 IF FAMILY MED REFILLS XANAX IT MUST BE IN TAPER FORM DUE TO ETOH USE (IF PATIENT WISHES TO CONTINUE BENZODIAZEPINES, PSYCHIATRY MUST RX IT IF THEY FEEL IT IS APPROPRIATE) Problem Noted Date Diagnosed Date Dizziness 07/06/2023 Assessment & Plan (07/06/2023 10:14 AM CDT): 53-year-old male with a history of HTN, alcohol use disorder, benzodiazepine use presents to clinic complaining of dizziness. Patient is a difficult historian. He says his dizziness started when he was taking the metoprolol though he has been on metoprolol for some time and has been out for 4 days prior to his appointment in May when it was restarted at 12.5 mg p.o. daily. Patient says that the metoprolol was giving him palpitations and made him feel dizzy. Has been off of the metoprolol for 10 days. When asked if he was still having dizziness and palpitations patient originally said no but then went ahead and complained of dizziness triggered by turning his head. He says that it has continued since stopping the metoprolol. Says he is having to walk slower due to the dizziness. Says that the dizziness may or may not be [...] metoprolol carvedilol etcetera to treat palpitations. Patient is insistent that he does not want to be on metoprolol anymore. -discontinue metoprolol -CBC, CMP, magnesium level, TSH, EKG, ZIO heart monitor to be worn for 2 weeks ordered today for dizziness and palpitations. -will refer to physical therapy because it sounds like there is likely a component of BPPV -keep appointment in August Gastroesophageal reflux disease without esophagi tis 06/02/2023 Assessment & Plan (06/02/2023 4:35 PM CDT): Patient with history of GERD. Currently on omeprazole 40 mg p.o. daily. Says he is doing well. Controlled Continue same Depression 04/07/2023 Assessment & Plan (04/19/2023 11:20 AM CDT): Patient brings in note from Dr. Regis Tanner. Note states that patient complaining of hyper thinking & stress yet with mild depression. Dr. Tanner agrees with dysthymia believes that the hyper thinking is exacerbated by it. Recommending starting on Wellbutrin 75 mg daily if possible. Patient will continue with counseling. Will continue on Toprol. Add Wellbutrin 75 mg daily. Hopefully this will help with attention as well as nicotine. Ask about adding medications for alcohol. However explained I would rather not due to different medications at once Anders had any issues. Patient will have short-term follow-up for recheck Nicotine dependence 04/07/2023 Assessment & Plan (04/19/2023 11:20 AM CDT): Started smoking at age 19 Up to 1/5 PPD. Quit at 21. Then back on @ age 31. Quit again at age 44. Started back when last few months. Add Wellbutrin. Patient given information on how to quit smoking. Have short-term follow-up. Alcohol dependence 04/07/2023 Assessment & Plan (04/19/2023 11:21 AM CDT): Has used anabuse in the past but had trouble with the restrictions. Was changed to naltraone. Early 1999. Started drinking in high school. Age 20. Quit at age 21. Started lifting wiehgts which helped. Mainly beer.Started back at age 26. Mainly beer.Currently 8 to 9 beers on the weekend. Doesn't want to go back to drinking like he did then. Will consider adding naltrexone for alcohol addiction, however explained to patient that if we effectively treat the anxiety depression he may not need additional medications for the alcohol. Hypertension 03/11/2023 Assessment & Plan (07/06/2023 10:16 AM CDT): 53 y.o. male presents to clinic for follow up on hypertension. Patient is currently prescribed -Toprol-XL 12.5 mg p.o. daily. This was being used for both blood pressure control and anxiety . Patient has discontinued metoprolol XL because he had noticed [...] a few days prior to next appointment. Assessment & Plan (06/02/2023 4:37 PM CDT): 52 y.o. male presents to clinic for follow up on hypertension. Patient is currently prescribed -Toprol-XL 12.5 mg p.o. daily. However the patient has been out of his medicines for the past 2 days. Blood pressures have been running in the 130/80 range at home when he was on his medicine. The patient denies chest pains, shortness of breath, and symptoms of orthostasis. He did experience side effect of fatigue while on the medicine started taking it at night which has helped. BP Readings from Last 3 Encounters: 06/02/23 (!) 164/94 04/07/23 (!) 156/86 03/10/23 (!) 130/92 Uncontrolled that patient has been out of his medications. Beta blockade being used for both anxiety and hypertension. Refill Toprol-XL 12.5 mg p.o. daily Continue with BP log at home. Recheck labs in 3 months a few days prior to next appointment. Assessment & Plan (03/11/2023 2:21 PM CDT): Patient is currently not on any blood pressure medication. Denies any chest pain or shortness of Breath. BP Readings from Last 3 Encounters: 03/10/23 (!) 130/92 01/25/23 104/82 01/18/23 140/88 Patient does receive testosterone therapy. Is seen a urologist. States he was been forearm by him that if his hemoglobin got too high for him to donate blood. However there has not been any hypertensive issues. Patient states that he quit smoking 8 years ago. Add Toprol-XL 12.5 mg daily. Patient is somewhat apprehensive about medication. Ask about coming in office to take the medication. Told him that he could come into lobby and take the medication if this would help relieve some of the anxiety. Will have short-term follow-up in 2 weeks. Explained the mechanism of action with patient and that hopefully it would help block some adrenaline. Testosterone deficiency 09/21/2022 Assessment & Plan (10/22/2022 4:31 PM PSYCHIATRY ADULT PHYSICIAN): Currently on Depo testosterone 200 milligram/mL 1 mL q.12 days and Clomid 50 mg TIW. Patient had been seen neurologist in [facility]. Had started seeing Cody Simms at this facility for awhile. Cody is currently no longer available. Patient is willing to reestablish with urology but would like to do so closer to home. Continue same at present. Referral to urology Assessment & Plan (09/23/2022 12:41 PM PSYCHIATRY ADULT PHYSICIAN): Was seen by urology in the past. Needing refills on Cialis. Currently on Clomid 50 mg tablet 3 times weekly. Depo testosterone 200 mg IM 1 cc every 12 days. Is due for testosterone levels. Denies any adverse side effects to current medication regimen. Will continue same at this time. Obtain labs as noted below including free and total testosterone level. Pending results patient may ultimately need referred back to Urology. Chronic prescription benzodiazepine use 03/25/20 22 Male hypogonadism 05/05/2021 Assessment & Plan (01/27/2023 5:44 PM CDT): Patient is being followed by Dr. Deluna for hypogonadism. There is some confusion as to why Niya Mcknight PA-C sent him to a spell of show us for testosterone supplementation. Discussed with the patient that there are risks associated with testosterone supplementation including infertility, rising prostate-specific antigen levels, worsening lower urinary tract symptoms, polycythemia, and increased risk of venous thromboembolism. Patient voiced understanding. Continue to follow with Dr. Deluna. Assessment & Plan (12/18/2021 10:35 AM CDT): Was diagnosed with low testosterone in [facility] in 2017. Has been adjusted over time is now injecting jose r 12 days. Continue same. Azotemia 10/24/2018 Hyperglycemia 12/13/2017 Family history of diabetes mellitus 12/13/2017 Dyslipidemia 12/13/2017 Assessment & Plan (06/02/2023 4:24 PM CDT): Patient with history of hyperlipidemia. Currently trying to stresses diet. At previous visit in October has been focusing on eating more nuts walnuts almonds. Not currently on any statin therapy. He is on testosterone supplementation prescribed by urologist. Has been on this for some time. LIPIDS (last 3 results) Recent Labs Lab 10/17/22 0858 07/19/21 0845 12/30/19 0836 CHOL 187 177 213* TRIG 208* 100 275* HDL 62 41 31* LDLCALC 83 116* 127* Patient has had significant improvement in his cholesterol over the years. Continue with lifestyle changes. Repeat lipid panel in 3 months few days prior to his next appointment Assessment & Plan (10/22/2022 4:29 PM PSYCHIATRY ADULT PHYSICIAN): Last 3 Lipid Profile ValuesRecent Labs Lab 10/17/22 0858 07/19/21 0845 12/30/19 0836 CHOL 187 177 213* TRIG 208* 100 275* HDL 62 41 31* LDLCALC 83 116* 127* Patient states that he has started eating more nuts walnuts and almonds. Believes he may be eating more than he should. Is currently not on any statin therapy. Instructed to decrease concentrated carbohydrates in diet Assessment & Plan (09/23/2022 12:40 PM PSYCHIATRY ADULT PHYSICIAN): Currently not on any cholesterol medication Last 3 Lipid Profile ValuesRecent Labs Lab 07/19/21 0845 12/30/19 0836 09/09/19 0841 CHOL 177 213* 199 TRIG 100 275* 208* HDL 41 31* 29* LDLCALC 116* 127* 128* Obtain cholesterol fasting Assessment & Plan (12/18/2021 10:34 AM CDT): Controlling with diet and exercise. Last 3 Lipid Profile ValuesRecent Labs Lab 07/19/21 0845 12/30/19 0836 09/09/19 0841 CHOL 177 213* 199 TRIG 100 275* 208* HDL 41 31* 29* LDLCALC 116* 127* 128* Continue same. Will repeat lipids in July Hypovitaminosis D 12/13/2017 Assessment & Plan (10/22/2022 4:30 PM PSYCHIATRY ADULT PHYSICIAN): Vitamin D 25-Hydroxy Date Value Ref Range Status 10/17/2022 30.00 - 100.00 mg/dL Final 39.9 <20 Deficient 20-29 Insufficient 30-100 Sufficient >100 Upper Safety Limit Currently on vitamin-D 5000 IU daily. Denies any adverse side effects to current medication regimen continue same Assessment & Plan (09/23/2022 12:40 PM PSYCHIATRY ADULT PHYSICIAN): Currently takes vitamin-D 5000 IU daily. Obtain vitamin-D level IGGY (generalized anxiety disorder) 08/09/2014 Assessment & Plan (07/06/2023 10:44 AM CDT): Patient with longstanding history of generalized anxiety [...] Detection window not available for oral secretions. Assessment & Plan (06/02/2023 4:33 PM CDT): Patient with longstanding history of generalized anxiety [...] beers about once to twice per week. Would like naltrexone to help him quit drinking. Patient says that he has to use his Xanax twice per day but rarely takes it a 3rd time. Last dose was at 12:00 today Recommended inpatient detox and rehab for benzo and alcohol detox. Patient declines at this time. He stresses that he wants to naltrexone so that he can quit drinking. Discussed with the patient that he needs to come off his Xanax completely in a slow taper prior to trying to quit drinking because it is a long process. He is at higher risk of having delirium tremens due to use of alcohol and benzodiazepines. Stressed to the patient that the benzos and alcohol work very similarly in the brain and his brain really does not know the difference between the 2. Patient says he does not want to come off of his Xanax he does not think that he can do without it. Discussed with patient that since he has alcohol use disorder it would make sense that he likes his Xanax because they work the same in the brain. Again stressed the patient that he needs to come off of the benzos. Explained to patient that this would be a slow taper. Patient wishes to obtain 2nd opinion from Psychiatry. -Discussed risks and benefits of benzodiazepines medications including addiction, respiratory depression, , dementia, and falls. Potential for and adverse effects increases with concurrent use of benzodiazepines, opioids, muscle relaxer, and alcohol. -[facility]os drug screen updated today (salivary sample. Patient emptied bladder prior to physician ordering ethos) -Referral made to [facility] for psychiatry and med management. Discussed with patient that if I refill his xanax, it will be in taper form and only until he sees psychiatry. -Continue Wellbutrin 75 mg po daily Assessment & Plan (04/19/2023 11:22 AM CDT): Will continue with Xanax at this time. However hopefully will be able to discontinue with addition of Wellbutrin. Assessment & Plan (03/11/2023 2:20 PM CDT): Patient has been tried on multiple medications in the past including lexapro, buspar, Effexor. Is currently on Xanax p.r.n.. However patient is now having to take this on a daily basis. Had been doing better when he was living in [place]. States that his stressors are much less when he is in [place] but since returning to [place] is having some difficulties. Patient's blood pressure is quite elevated today. Denies any chest pain. Patient states that his anxiety started when he was 21 years old. States that was driving down the road with his father and just started feeling very anxious and was having chest pain. States that he was taken to the emergency room and has had multiple testing done. States they have always told him everything was fine physically. Will continue same at present. However I a.m. going to add Toprol 12.5 mg daily. Hopefully the beta-blockade will help with some of the anxiety. Patient will continue with counseling. Patient will have short-term follow-up in 2 weeks. Will recheck blood pressure and obtain medication contract and drug screen at that time. Assessment & Plan (01/27/2023 5:36 PM CDT): Patient has a history of anxiety. Patient doing well with current medication regimen. Is doing well with counseling sees Dr. Tanner. Denies any adverse side effects current medication regimen. Is on Xanax 0.5 mg t.i.d. p.r.n.. Has tried lexapro and buspar but was only on them for a month. -Discussed with patient that he really should be on daily medication for anxiety and 4 weeks was not long enough to see if the medications worked. Also discussed with the patient that if he is requiring rescue medications for anxiety and panic attacks daily that further reinforces the need for SSRI/SNRI. He will discuss this with Niya when he follows up her. -[facility]os 04/2022 showed ethyl alcohol. Discussed with patient that he should not drink alcohol while on Xanax. It increases his risk of respiratory depression and . Patient voices understanding. -Continue same. ARGON TESTER reviewed no discrepancies. Refills Xanax 1 mg PO TID # 90 with 1 refill. - Follow up with Niya Mcknight PA-C in 2-3 months Assessment & Plan (10/22/2022 4:29 PM PSYCHIATRY ADULT PHYSICIAN): Patient now seen Dr. Tanner for counseling. Patient had occult office stating Dr. Tanner wanted TSH free T4 and T3 tested. These were drawn and are normal. Patient doing well with current medication regimen. Is doing well with counseling. Denies any adverse side effects current medication regimen. Is on Xanax 0.5 mg t.i.d. p.r.n.. Continue same. Follow-up in 3 months Assessment & Plan (09/23/2022 12:40 PM PSYCHIATRY ADULT PHYSICIAN): Patient currently on Xanax 0.5 mg t.i.d. p.r.n.. States that he takes Xanax about 4 days per week. States he does try to take holidays from this. Has tried multiple SSRIs in the past without improvement. Has recently come back to the area from [place]. Is getting back into counseling. Denies any overt panic attacks. States he has more of a constant anxious feeling on the days that he has trouble. Denies any depression or suicide ideation. ARGON TESTER reviewed. No concerns noted. Is current on medication contract and drug screen. Last drug screen did show ethanol. Discuss this with patient. States that he is no longer drinking. Will continue same. Will get back in with counseling at [facility]. Did explain to patient that if he had accelerating need for anxiolytic that he would need to see Psychiatry. Assessment & Plan (04/01/2022 3:09 PM CDT): Patient currently on Xanax 0.5 mg t.i.d. p.r.n.. Has had anxiety for many years. Has done counseling in the past. Was seeing Kenrick Kincaid @ [facility]. States he has not seen him for some time but is willing to go back. Patient relates history of being seen in the emergency room here at [facility] for bursitis. Patient also seen at [facility] on March 14, 2022 in the ED for alcohol abuse . Patient states he has not had alcohol in some time period no relates that patient was brought in by EMS from local store. States he was caught trying to still cigarettes and became upset and was talking about killing himself. Did noted that he said he was not suicidal. Patient states that he had went to town for got his Xanax became very upset with sitting out in a car and someone came over to check on him. States he was upset in up they took him to the ED. Ultimately patient was discharged to the custody/care of his father who came by to pick him up. I cannot tell that any lab work was obtained. Patient states that they did not do any testing at all. Patient states that he has been doing fine since then. Is due for medication contract and drug screen. ARGON TESTER reviewed and no concerns noted. Medication contract reviewed and signature obtained. Drug screen obtained. Continue with current medication regimen at this time. Recommend that patient get back and counseling. Will follow-up in 3 months for recheck. Assessment & Plan (12/18/2021 10:34 AM CDT): Currently on Lexapro 10 mg daily. And xanax 0.5 mg TID and BuSpar 7.5 b.i.d. prn # 90 per month. Patient states that he currently does not need a refill. Denies any suicide ideation. Denies any overt panic attacks. States he is doing well on current medication regimen. ARGON TESTER reviewed low risk with no concerned. Patient does not need any controlled substance filled at this time. Will continue with current medication regimen. Will follow-up in 3 months for recheck. Plan to obtain drug screening medication contract at that time. Resolved Problems Problem Noted Date Diagnosed Date Resolved Date Anxiety 08/09/2014 03/02/2017 Encounters Date Type Department Care Team Description 08/21/2024 Orders Only [facility] [address] [place] [address] [phone] Dina Madrigal NP Closed fracture of distal end of right fibula, unspecified fracture morphology, initial encounter (Primary Dx) 08/14/2024 Telephone [facility] [address] [place] [address] [phone] Dina Madrigal NP Referral 08/13/2024 2:00 PM PSYCHIATRY ADULT PHYSICIAN - 08/13/2024 3:57 PM [facility] Emergency [facility] Emergency Department [address] [place] [address] [phone] Closed fracture of distal end of right fibula, unspecified fracture morphology, initial encounter (Primary Dx) Discharge Disposition: Home 05/27/2024 10:30 AM CDT Office Visit [facility] [address] [place] [phone] Niya Mireles NP Influenza A (Primary Dx); Cough, unspecified type from Last 3 Months Immunizations Name Administration Dates Next Due Tdap 09/08/2022,10/14/2013 Family History Medical History Relation Name Comments Depression Father Depression Mother Alcohol Abuse Paternal Uncle Relation Name Status Comments Brother Alive Father Alive Mother Alive Paternal Uncle Sister Alive Social History Tobacco Use Types Packs/Day Years [...] Frequency of Alcohol Consumption Not on file 02/16/2024 Average Number of Drinks Not on file 024 Frequency of Binge Drinking Not on file 02/04 Alcohol Use Status Not Currently 02/16/2024 Average alcohol consumption Not on file 02/04 Sex and Gender Information Value Date Recorded Sex Assigned at Not on file Gender Identity Not on file Sexual Orientation Not on file Last Filed Vital Signs Vital Sign Reading Time Taken Comments Blood Pressure 148/82 08/13/2024 3:56 PM PSYCHIATRY ADULT PHYSICIAN Pulse 79 08/13/2024 3:56 PM PSYCHIATRY ADULT PHYSICIAN Temperature 36.1 ??C (97 ??F) 08/13/2024 3:56 PM PSYCHIATRY ADULT PHYSICIAN Respiratory Rate 16 08/13/2024 3:56 PM PSYCHIATRY ADULT PHYSICIAN Oxygen Saturation 98% 08/13/2024 3:56 PM PSYCHIATRY ADULT PHYSICIAN Inhaled Oxygen Concentration - - Weight 81.6 kg (180 lb) 08/13/2024 2:06 PM PSYCHIATRY ADULT PHYSICIAN Height 177.8 cm (5' 10 ) 08/13/2024 2:06 PM PSYCHIATRY ADULT PHYSICIAN Body Mass Index 25.83 08/13/2024 2:06 PM PSYCHIATRY ADULT PHYSICIAN Plan of Treatment Health Maintenance Due Date Last Done Comments HIV Screening 1972 Hepatitis C Screening ages 18 to 79 once 1972 MMR VACCINES (1 of 1 - Standard series) 1973 YEARLY WELLNESS EXAM 1975 Pneumococcal Vaccine: Peds(0 to 5 Years) & At-Risk Patients (6 to 64 Years) (1 of 2 - PCV) 1978 BMI Above/Below Normal Parameters 1990 HEPATITIS B VACCINES (1 of 3 - 19+ 3-dose series) 1991 Colon Cancer Screening 2017 Diabetes Screening 09/07/2021 09/07/2018, 05/24/2018 Zoster Vaccine (Recombinant Vaccine) (1 of 2) 2022 LIPID TESTING 10/17/2023 10/17/2022, 07/07, 12/30/2019, Additional history exists Influenza Vaccine 04/06/2024 COVID-19 Immunization ( season) 2024 DEPRESSION SCREENING 06/02/2024 06/02/2023, 04/07/20 23 ADULT TETANUS 09/08/2032 09/08/2022, 10/14/2013 HEPATITIS A VACCINES Aged Out No long er eligible based on patient's age to complete this topic HIB VACCINES Aged Out No longer eligi ble based on patient's age to complete this topic HPV VACCINES Aged Out No longer eligi ble based on patient's age to complete this topic IPV VACCINES Aged Out No longer eligi ble based on patient's age to complete this topic MENINGOCOCCAL VACCINE Aged Out No alex ovi eligible based on patient's age to complete this topic ROTAVIRUS VACCINES Aged Out No longer eligible based on patient's age to complete this topic Procedures Procedure Name Priority Date/Time Associated Diagnosis Comments CT CERVICAL SPINE WO CONTRAST STAT 08/13/2024 3:22 PM PSYCHIATRY ADULT PHYSICIAN XR ANKLE RIGHT MIN 3 VIEWS STAT 08/13/2024 2:[address]RY ADULT PHYSICIAN [address] HEAD WO CONTRAST STAT 08/13/2024 2 :28 PM PSYCHIATRY ADULT PHYSICIAN POCT INFLUENZA A/B Routine 05/27/2024 3: 47 PM CDT Cough, unspecified type LIPID PROFILE Routine 10/17/2022 8:58 AM PSYCHIATRY ADULT PHYSICIAN IGGY (generalized anxiety disorder) Dyslipidemia HEMOGLOBIN A1C Routine 09/07/2018 12:06 PM PSYCHIATRY ADULT PHYSICIAN Hyperglycemia from Last 3 Months or Most Recently Relevant to Health Maintenance Results * CT CERVICAL SPINE WO CONTRAST (08/13/2024 3:22 PM PSYCHIATRY ADULT PHYSICIAN) Anatomical Region Laterality Modality C-spine Computed Tomogra phy 08/13/2024 3:12 PM PSYCHIATRY ADULT PHYSICIAN Narrative 08/13/2024 3:33 PM PSYCHIATRY ADULT PHYSICIAN EXAM: CT CERVICAL SPINE WO CONTRAST CLINICAL INDICATION: Patient fell COMPARISON: There is no previous study for comparison. TECHNIQUE: ??CT scan of the cervical spine was done using contiguous axial 3mm sections through the cervical spine with sagittal and coronal reconstructions. This exam was performed according to our departmental dose-optimization program, which includes automated exposure control, adjustment of the mA and/or kV according to patient size and/or use of iterative reconstruction technique. Findings: There is no fracture or subluxation. The prevertebral soft tissues are normal. The bilateral facet joint alignment is normal. The osseous structures appear intact and unremarkable. IMPRESSION: No evidence of acute traumatic injury. Electronically signed by: ??Maximo Rain MD ??08/13/2024 03:33 PM PSYCHIATRY ADULT PHYSICIAN RP Procedure Note Maximo Rain MD - 08/13/2024 EXAM: CT CERVICAL SPINE WO CONTRAST CLINICAL INDICATION: Patient fell COMPARISON: There is no previous study for comparison. TECHNIQUE: CT scan of the cervical spine was done using contiguous axatz2vc sections through the cervical spine with sagittal and coronal reconstructions. This examwas performed according to our departmental dose-optimization program, which includes automatedexposure control, adjustment of the mA and/or kV according to patient size and/or use ofiterative reconstruction technique. Findings: There is no fracture or subluxation. The prevertebral softtissues are normal. The bilateral facet joint alignment is normal. The osseous structures appear intact and unremarkable. IMPRESSION: No evidence of acute traumatic injury. Electronically signed by: Maximo Rain MD 08/13/2024 03:33 PM PSYCHIATRY ADULT PHYSICIAN RPWorkstation: [id number] Jordan Bai MD [facility] IMG CT ORDERABLE S * XR ANKLE RIGHT MIN 3 VIEWS (08/13/2024 2:28 PM PSYCHIATRY ADULT PHYSICIAN) Anatomical Region Laterality Modality Ankle Radiographic Matilda ging 08/13/2024 2:28 PM PSYCHIATRY ADULT PHYSICIAN Narrative 08/13/2024 2:39 PM PSYCHIATRY ADULT PHYSICIAN EXAM: XR ANKLE RIGHT MIN 3 VIEWS CLINICAL INDICATION: Patient fell COMPARISON: There is no previous study for comparison. FINDINGS: 3 views of the right ankle reveal a fracture of the distal fibula with 3 mm displacement. No other fracture or dislocation is seen. IMPRESSION: Fracture of the distal right fibula. Electronically signed by: ??Maximo Rain MD ??08/13/2024 02:39 PM PSYCHIATRY ADULT PHYSICIAN RP Procedure Note Maximo Rain MD - 08/13/2024 EXAM: XR ANKLE RIGHT MIN 3 VIEWS CLINICAL INDICATION: Patient fell COMPARISON: There is no previous study for comparison. FINDINGS: 3 views of the right ankle reveal a fracture of the distalfibula with 3 mm displacement. No other fracture or dislocation is seen. IMPRESSION: Fracture of the distal right fibula. Electronically signed by: Maximo Rain MD 08/13/2024 02:39 PM PSYCHIATRY ADULT PHYSICIAN RPWorkstation: [id number] Jordan Bai MD [facility] IM DIAG ORDERAB LES * CT HEAD WO CONTRAST (08/13/2024 2:28 PM PSYCHIATRY ADULT PHYSICIAN) Anatomical Region Laterality Modality Head Computed Tomogra phy 08/13/2024 2:28 PM PSYCHIATRY ADULT PHYSICIAN Narrative 08/13/2024 2:39 PM PSYCHIATRY ADULT PHYSICIAN EXAM: CT HEAD WO CONTRAST CLINICAL INDICATION: Patient fell COMPARISON: There is no previous study for comparison. TECHNIQUE: The CT scan was done using contiguous axial 2.5 mm sections through the brain. This exam was performed according to our departmental dose-optimization program, which includes automated exposure control, adjustment of the mA and/or kV according to patient size and/or use of iterative reconstruction technique. FINDINGS: There is no midline shift, mass effect, or extraaxial fluid collection. There is no evidence of acute intracranial hemorrhage, mass lesion, or cerebral edema. The ventricles and cortical sulci are normal for the patient's age. Bone window images reveal no evidence of a skull fracture. IMPRESSION: No evidence of an acute intracranial process. Electronically signed by: ??Maximo Rain MD ??08/13/2024 02:39 PM PSYCHIATRY ADULT PHYSICIAN RP Procedure Note Maximo Rain MD - 08/13/2024 EXAM: CT HEAD WO CONTRAST CLINICAL INDICATION: Patient fell COMPARISON: There is no previous study for comparison. TECHNIQUE: The CT scan was done using contiguous axial 2.5 mm sectionsthrough the brain. This exam was performed according to our departmental dose-optimizationprogram, which includes automated exposure control, adjustment of the mA and/or kV according topatient size and/or use of iterative reconstruction technique. FINDINGS: There is no midline shift, mass effect, or extraaxial fluidcollection. There is no evidence of acute intracranial hemorrhage, mass lesion, or cerebral edema.The ventricles and cortical sulci are normal for the patient's age. Bone window images revealno evidence of a skull fracture. IMPRESSION: No evidence of an acute intracranial process. Electronically signed by: Maximo Rain MD 08/13/2024 02:39 PM PSYCHIATRY ADULT PHYSICIAN RPWorkstation: [id number] Jordan Bai MD [facility] CT ORDERABLE S * POCT INFLUENZA A/B (05/27/2024 3:47 PM CDT) Influenza A Ab pos [facility] Influenza B Ab neg [facility] 05/27/2024 3:47 PM CDT Niya Mireles NP POINT OF CARE TEST O RDERABLES Performing Organization Address City/State/[facility] Co de Phone Number [address] * (ABNORMAL) LIPID PROFILE (10/17/2022 8:58 AM PSYCHIATRY ADULT PHYSICIAN) Cholesterol 187 0 - 200 MG/DL [facility] Triglycerides 208(H) <150 MG/DL [facility] HDL 62 23 - 92 MG/DL [facility] LDL Cholesterol 83 <130 MG/DL [facility] LDL/HDL Ratio 1.34 [facility] VLDL, Calc 42(H) 5 - 40 MG/DL [facility] LDL, High Risk RELATIVE RISK ? MALE ?FEMALE 1/2 AVERAGE ? 1.00 ? 1.47 AVERAGE ? 3.55 ? 3.22 2X AVERAGE ?6.25 ? 5.03 3X AVERAGE ?7.99 ? 6.14 AN AVERAGE RISK RATIO INFERS A 10% LIKELIHOOD OF SIGNIFICANT CAD BY AGE 60. OTHER RISK FACTORS SUCH GLUCOSE INTOLERANCE, SMOKING HISTORY, HYPERTENSION AND OBESITY WILL FURTHER MODIFY THE RELATIVE RISK RATIO. [facility] Blood 10/17/2022 8:58 AM PSYCHIATRY ADULT PHYSICIAN 10/17/2022 9:03 AM PSYCHIATRY ADULT PHYSICIAN Niya WORKMAN CHEMISTRY ORDERABL ES Performing Organization Address City/State/[facility] Co de Phone Number [facility] [address] * HEMOGLOBIN A1C (09/07/2018 12:06 PM PSYCHIATRY ADULT PHYSICIAN) Hemoglobin A1C 5.6 4.5 TO 6.2 % [facility] Blood 09/07/2018 12:0 6 PM PSYCHIATRY ADULT PHYSICIAN Cody WORKMAN CHEMISTRY ORDERABLE S Performing Organization Address [facility] Co de Phone Number [facility] [address] [place] [address] from Last 3 Months or Most Recently Relevant to Health Maintenance Care Teams Slice Plug Cutter Operator Helper Relationship Specialty Start Date End Date Joanna Mckeon NP [facility] [address] [place] [address] PCP - General Physician Hand Former Helper 08/31/23
--- OUTSIDE RECORDS SUMMARY | 2024-08-23 12:05 | XMS_ITS | Encounter Summary ---
Author Organization [facility] Address [address] [place] [address] Care Team Providers Care Roof Designer Name Role Phone Joanna Mckeon NP Primary Care Provider [phone] Reason for Visit * Reason Onset Date Comments Results 07/12/2023 Encounter Details Date Type Department Care Team ([facility] st Contact Info) Description 07/12/2023 Telephone [facility] [address] [place] [address] Mandy Lyles DO [address] [place] [address] Results Social History Tobacco Use [...] encounter Miscellaneous Notes * Telephone Encounter - Zuleika Joseph CNA - 07/13/2023 10:17 AM JIG AND FIXTURE BUILDER APPRENTICE Pt called back and was notified of message AND FIXTURE BUILDER APPRENTICE * Telephone Encounter - Jesi Loaiza LPN - 07/13/2023 10:07 AM CST Called patient, no answer, voicemail full. Unable to leave a message at this time. AND FIXTURE BUILDER APPRENTICE * Telephone Encounter - Jesi Loaiza LPN - 07/13/2023 10:04 AM CST ----- Message from Mandy Lyles DO sent at 07/12/2023 2:08 PM JIG AND FIXTURE BUILDER APPRENTICE ----- Renal function and bilirubin are stable. Otherwise CMP is. CBC shows stable hematocrit and MCV compared to 8 months ago. This is likely due to his testosterone supplementation. Recommend he donate blood. TSH magnesium normal. Continue current management AND FIXTURE BUILDER APPRENTICE * Telephone Encounter - Zuleika Joseph CNA - 07/12/2023 11:27 AM JIG AND FIXTURE BUILDER APPRENTICE Pt called and is wanting to know lab results and is wanting to also get a copy of it. Please call back AND FIXTURE BUILDER APPRENTICE documented in this encounter Plan of Treatment Not on file documented as of this encounter Visit Diagnoses Not on filedocumented in this encounter Care Teams Roof Designer Relationship Specialty Start Date End Date Joanna Mckeon NP [address] [place] [address] [address] [place] [address] PCP - General Physician Services Engineer 08/11/23 08/16/23 documented as of this encounter
--- OUTSIDE RECORDS SUMMARY | 2024-08-23 12:05 | XMS_ITS | Encounter Summary ---
Author Organization [facility] Address [address] [place] [address] Care Team Providers Care Motorboat Mechanic Name Role Phone Mandy Lyles DO Primary Care Provider Encounter Details Date Type Department Care Team (Late st Contact Info) Description 07/06/2023 9:30 AM CDT Ancillary Procedure [facility] Non-Invasive Cardiology [address] [place] [address] Mandy Lyles DO [address] [place] [address] Dizziness; Palpitations Social History Tobacco [...] Procedure Name Priority Date/Time Associated Diagnosis Comments EKG Routine 07/06/2023 9:47 AM CDT Dizziness Palpitations documented in this encounter Results * EKG (07/06/2023 9:47 AM CDT) Narrative [facility] - 07/06/2023 9:47 AM CDT EKG Report Date: ??07/06/23 Time: ??09:20 Previous EKG available for comparison: Yes: 2013 The EKG showed a normal sinus rhythm with a ventricular rate of 69 bpm. ??VT interval normal at 170 ms. ??QRS duration normal at 102 ms. ??QT and QTC intervals are within normal range. ??R axis is normal at 78 degrees. ??There is no evidence of acute ST or T-wave changes. ??There is no voltage criteria for left ventricular hypertrophy. Mandy Lyles DO 07/13/2023 3:58 PM Mandy Lyles DO ECG ORDERABLES Performing Organization Address City/State/[facility] Co de Phone Number [facility] [address] [place] [address] documented in this encounter Visit Diagnoses Diagnosis Dizziness Dizziness and giddiness Palpitations documented in this encounter Care Teams Motorboat Mechanic Relationship Specialty Start Date End Date Mandy Lyles DO [address] [place] [id number] PCP - General Family Medicine 06/02/23 08/10/23 documented as of this encounter
--- OUTSIDE RECORDS SUMMARY | 2024-08-23 12:05 | XMS_ITS | Encounter Summary ---
Author Organization [facility] Address [address] [place] [address] Care Team Providers Care Microphone Operator Name Role Phone Mandy Lyles DO Primary Care Provider [phone] Reason for Visit * Reason Onset Date Comments Other 07/05/2023 Encounter Details Date Type Department Care Team ([facility] st Contact Info) Description 07/05/2023 Telephone [facility] [address] [place] [address] [place] [address] [place] [phone] Other Social History Tobacco Use Types [...] Telephone Encounter - Jesi Loaiza LPN - 07/05/2023 4:18 PM CDT Patient notified and appointment scheduled to evaluate vertigo. * Telephone Encounter - Mandy Lyles DO - 07/05/2023 2:12 PM CDT Unfortunately I can not send a referral for an issue that has not been evaluated in my office. If he is having severe vertigo, I recommend being seen in a local walk-in clinic * Telephone Encounter - Micah Dozier - 07/05/2023 1:24 PM CDT Pt is currently staying in [place] and is having really bad vertigo. Pt spoke with [facility] and they told him they could do some manipulations/physical therapy to aleveate his symptoms but that he requires a referal from his primary. PT called to request a referal for him to be faxed to the following number. He would also like to speak with someone whenever the referral has been sent. [facility] Patient P# [phone] documented in this encounter Plan of Treatment Not on file documented as of this encounter Visit Diagnoses Not on filedocumented in this encounter Care Teams Microphone Operator Relationship Specialty Start Date End Date Mandy Lyles DO [address] [place] [id number] PCP - General Family Medicine 06/02/23 08/10/23 documented as of this encounter
--- OUTSIDE RECORDS SUMMARY | 2024-08-23 12:05 | XMS_ITS | Encounter Summary ---
Author Organization [facility] Address [address] [place] [id number] Care Team Providers Care Powder Press Operator Name Role Phone Mandy Lyles DO Primary Care Provider Reason for Referral * Referral (Routine) - Closed Specialty Diagnoses / Procedures Referred By Contac t Referred To Contact Surgical Services Diagnoses Screening for colon cancer Mandy Lyles DO [address] [place] [phone] [facility] [address] [place] [address] Referral ID Status Reason Start Date Expiration Date V isits Requested Visits Authorized [id number] Closed Consult 06/02/2023 1 1 Comments Screening colonoscopy * Psychiatric (Routine) - Closed Specialty Diagnoses / Procedures Referred By Contac t Referred To Contact Psychiatry Diagnoses IGGY (generalized anxiety disorder) Mandy Lyles DO [address] [place] [phone] [address] Referral ID Status Reason Start Date Expiration Date V isits Requested Visits Authorized [id number] Closed Consult 06/02/2023 1 1 Comments [facility] med management - IGGY Reason for Visit * Reason Comments Establish Care New patient to [facility]. Was seeing Niya Mcknight PA-C. Alcohol Problem Wants to discuss get ting a prescription for Naltrexone to help him quit drinking. Encounter Details Date Type Department Care Team (Late st Contact Info) Description 06/02/2023 3:00 PM CDT Office Visit [facility] [address] [place] [phone] Mandy Lyles DO [address] [place] [phone] IGGY (generalized anxiety disorder) (Primary Dx); Dyslipidemia; Primary hypertension; Screening for colon cancer; lab[employer] prescription benzodiazepine use; Gastroesophageal reflux disease without esophagitis Social History Tobacco Use Types Packs/Day Years [...] suspected to have Coronavirus/COVID-19? No / Unsure 06/02/2023 2:49 PM CDT documented as of this encounter Last Filed Vital Signs Vital Sign Reading Time Taken Comments Blood Pressure 164/94 06/02/2023 3:12 PM CDT Pulse 112 06/02/2023 3:12 PM CDT Temperature 37.1 ??C (98.8 ??F) 06/02/2023 3:12 PM CD T Respiratory Rate 18 06/02/2023 3:12 PM CDT Oxygen Saturation 98% 06/02/2023 3:12 PM CDT Inhaled Oxygen Concentration - - Weight 81.1 kg (178 lb 12.8 oz) 06/02/2023 3:12 PM CDT Height 177.8 cm (5' 10 ) 06/02/2023 3:12 PM CDT Body Mass Index 25.66 06/02/2023 3:12 PM CDT documented in this encounter Patient Instructions * Patient Instructions* Mandy Lyles DO - 06/02/2023 3:00 PM CDT Don't forget to come in a few days before your next appointment to have labs drawn so we can discuss results at your appointment. Referral has been placed for psychiatry, colonoscopy. It may take a few days to hear back about an appointment, but if you have not heard about your appointment date and time within a week, please give my office a call and let us know. documented in this encounter Progress Notes * Mandy Lyles DO - 06/02/2023 3:00 PM CDT OFFICE NOTE Subjective: 52 y.o. year old male presents to clinic with complaint of Chief Complaint Patient presents with ??? Establish Care New patient to establish care. Was seeing Niya Mcknight PA-C. ??? Alcohol Problem Wants to discuss getting a prescription for Naltrexone to help him quit drinking. 52-year-old male presents to clinic to establish care. 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 Preventative medicine Colon cancer screening - recommended discussed options patient wants colonoscopy- referral made to dr. Hernández Prostate Cancer Screening- 01/16/23 normal- Lung Cancer Screening - Pack year - - 1ppd x 10 years - not recommended Tobacco Use: High Risk (06/02/2023) Patient History ??? Smoking Tobacco Use: Some Days ??? Smokeless Tobacco Use: Former ??? Passive Exposure: Not on file Dyslipidemia - Mandy Lyles, DO 06/02/23 1624 Written Patient with history of hyperlipidemia. Currently trying to stresses diet. At previous visit in October has been focusing on eating more nuts walnuts almonds. Not currently on any statin therapy. Heis on testosterone supplementation prescribed by urologist. Has been on this for some time. IGGY (generalized anxiety disorder) - Mandy Lyles, DO 06/02/23 1633 Written Patient with longstanding history of generalized [...] that he has to use his Xanax twiceper day but rarely takes it a 3rd time. Last dose was at 12:00 today Hypertension - Mandy Lyles, 06/02/23 1634 Written 52 y.o. male presents to clinic for follow up on hypertension. Patient is currently prescribed -Toprol-XL 12.5 mg p.o. daily. However the patient has been out of his medicines for the past 2 days. Blood pressures have been running in the 130/80 range at home when he was on his medicine. The patientdenies chest pains, shortness of breath, and symptoms of orthostasis. He did experience side effectof fatigue while on the medicine started taking it at night which has helped. Gastroesophageal reflux disease without esophagitis - Mandy Lyles, 06/02/23 1635 Written Patient with history of GERD. Currently on omeprazole 40 mg p.o. daily. Says he is doing well. Current Outpatient Medications Medication Instructions ??? ALPRAZolam [...] History: Procedure Laterality Date ??? SHOULDER SURGERY 2002 left Social History Tobacco Use Smoking Status Some Days ??? Packs/day: 1.00 ??? Types: Cigarettes ??? Last attempt to quit: 01/22/2015 ??? Years since quittin.3 Smokeless Tobacco Former Tobacco Comments Exposed to second hand smoke Family History Problem Relation Age of Onset ??? Depression Mother ??? Depression Father ??? Alcohol Abuse Paternal Uncle Objective: Visit Vitals BP (!) 164/94 Pulse (!) 112 Temp 98.8 ??F (37.1 ??C) (Tympanic) Resp 18 Ht 5' 10 Wt 178 lb 12.8 oz (81.1 kg) SpO2 98% BMI 25.66 kg/m?? Smoking Status Some Days BSA 2 m?? Physical Exam Vitals and nursing note [...] than 2 seconds. Findings: No rash. Neurological: Mental Status: He is alert and oriented to person, place, and time. Psychiatric: Comments: Depressed affect Data: No results found for this or any previous visit (from the past 672 hour(s)). Assessment/Plan: Problem List Items Addressed This Visit IGGY (generalized anxiety disorder) - Primary (Chronic) Patient with longstanding history of generalized [...] that he has to use his Xanax twiceper day but rarely takes it a 3rd time. Last dose was at 12:00 today Recommended inpatient detox and rehab for benzo and alcohol detox. Patient declines at this time. He stresses that he wants to naltrexone so that he can quit drinking. Discussed with the patient thathe needs to come off his Xanax completely [...] Patient says he does not want to comeoff of his Xanax he does not think [...] Potential for and adverse effects increases with concurrentuse of benzodiazepines, opioids, muscle relaxer, and alcohol. -[facility] drug screen updated today (salivary sample. Patient emptied bladder prior to physician ordering [facility]) -Referral made to [facility] for psychiatry and med management. Discussed with patient that if I refill his xanax, it will be in taper form and only until he sees psychiatry. -Continue Wellbutrin 75 mg po daily Relevant Medications buPROPion (WELLBUTRIN) 75 MG tablet Other Relevant Orders AMB REFERRAL TO PSYCHIATRY [facility]UG SCREEN Dyslipidemia (Chronic) Patient with history of hyperlipidemia. Currently trying to stresses diet. At previous visit in October has been focusing on eating more nuts walnuts almonds. Not currently on any statin therapy. Heis on testosterone supplementation prescribed by urologist. Has [...] few days prior to his next appointment Relevant Orders LIPID PROFILE Hypertension (Chronic) 52 y.o. male presents to clinic for follow up on hypertension. Patient is currently prescribed -Toprol-XL 12.5 mg p.o. daily. However the patient has been out of his medicines for the past 2 days. Blood pressures have been running in the 130/80 range at home when he was on his medicine. The patientdenies chest pains, shortness of breath, and symptoms of orthostasis. He did experience side effectof fatigue while on the medicine started taking [...] days prior to next appointment. Relevant Medications metoprolol succinate (TOPROL XL) 25 MG XL tablet Other Relevant Orders COMPREHENSIVE METABOLIC PANEL Gastroesophageal reflux disease without esophagitis Patient with history of GERD. Currently on omeprazole 40 mg p.o. daily. Says he is doing well. Controlled Continue same Other Visit Diagnoses Screening for colon cancer Relevant Orders AMB REFERRAL TO COLORECTAL SURGERY shelter prescription benzodiazepine use Relevant Orders [facility] DR[facility] SCREEN Visit Orders: Orders Placed This Encounter Procedures ??? Comprehensive metabolic panel Standing Status: Future Standing Expiration Date: 06/02/2024 ??? Lipid Profile Standing Status: Future Standing Expiration Date: 06/02/2024 ??? [facility] Drug Screen Standing Status: Future Standing Expiration Date: 06/02/2024 ??? Ambulatory Referral to Psychiatry Referral Priority: Routine Referral Type: Psychiatric Referral Reason: Consult Requested Specialty: Psychiatry Number of Visits Requested: 1 ??? Ambulatory Referral to Colorectal Surgery Referral Priority: Routine Referral Type: Referral Referral Reason: Consult Number of Visits Requested: 1 DISCHARGE MEDS: Outpatient Encounter Medications as of 06/02/2023 Medication Sig Dispense Refill ??? ALPRAZolam (XANAX) 0.5 MG tablet Take 1 tablet (0.5 mg) by mouth 3 times daily as needed 90 tablet 2 ??? BD HYPODERMIC NEEDLE 18G X 1 MISC USE TO DRAW UP TESTOSTERONE ??? [DISCONTINUED] buPROPion (WELLBUTRIN) 75 MG tablet TAKE 1 TABLET(75 MG) BY MOUTH DAILY 30 tablet 0 ??? buPROPion (WELLBUTRIN) 75 MG tablet TAKE 1 TABLET(75 MG) BY MOUTH DAILY 30 tablet 2 ??? Cholecalciferol (VITAMIN D PO) Take 5,000 Units by mouth daily ??? clomiPHENE (CLOMID) 50 MG tablet TAKE 1 TABLET BY MOUTH 3 TIMES WEEKLY 36 tablet 0 ??? [DISCONTINUED] metoprolol succinate (TOPROL XL) 25 MG XL tablet Take 0.5 tablets (12.5 mg) by mouth daily 15 tablet 2 ??? metoprolol succinate (TOPROL XL) 25 MG XL [...] facility-administered encounter medications on file as of 06/02/2023. Return in about 3 months (around 09/01/2023) for follow up htn, gerd, hyperlipidemia with lab prior. Patient Instructions Don't forget to come in a few days before your next appointment to have labs drawn so we can discuss results at your appointment. Referral has been placed for psychiatry, colonoscopy. It may take a few days to hear back about an appointment, but if you have not heard about your appointment date and time within a week, please give my office a call and let us know. This total encounter took 42 minutes of time, including taking history, performing physical examination, reviewing imaging/labs/test results, reviewing previous records/notes from previous/other providers, counseling patient/family on diagnosis, discussing imaging/labs/test results and management plan, as well as communicating, and coordination of care with other providers. Mandy Lyles DO 06/02/2023 4:37 PM Disclaimer: [employer] now allows inpatient and outpatient progress notes to be visible to patients. Please note that these notes will include professional medical terminology that may be somewhat confusing without some interpretation from your medical professional team. The intent of progress notes is to communicate information between medical and scientific illustrator involved in your care or to serve as future reference for myself or any other provider when reviewing your medical case, as well as a reference for the patient viewing the record. Please ask a member of the medical team if you have any questions about terminology or content of the note. This asset card clerk was created in part using [employer] voice recognition software, electronically transcribed and electronically signed. Be aware that this asset card clerk may contain errors not detected by proofreading. documented in this encounter Miscellaneous Notes * Assessment & Plan Note - Mandy Lyles DO - 06/02/2023 4:34 PM CDT Associated Problem(s): Gastroesophageal reflux disease without esophagitis Patient with history of GERD. Currently on omeprazole 40 mg p.o. daily. Says he is doing well. Controlled Continue same * Assessment & Plan Note - Mandy Lyles DO - 06/02/2023 4:33 PM CDT Associated Problem(s): Hypertension 52 y.o. male presents to clinic for follow up on hypertension. Patient is currently prescribed -Toprol-XL 12.5 mg p.o. daily. However the patient has been out of his medicines for the past 2 days. Blood pressures have been running in the 130/80 range at home when he was on his medicine. The patientdenies chest pains, shortness of breath, and symptoms of orthostasis. He did experience side effectof fatigue while on the medicine started taking [...] appointment. * Assessment & Plan Note - Mandy Lyles DO - 06/02/2023 4:24 PM CDT Associated Problem(s): IGGY (generalized anxiety disorder) [...] that he has to use his Xanax twiceper day but rarely takes it a 3rd time. Last dose was at 12:00 today Recommended inpatient detox and rehab for benzo and alcohol detox. Patient declines at this time. He stresses that he wants to naltrexone so that he can quit drinking. Discussed with the patient thathe needs to come off his Xanax completely [...] Patient says he does not want to comeoff of his Xanax he does not think [...] Potential for and adverse effects increases with concurrentuse of benzodiazepines, opioids, muscle relaxer, and alcohol. -[facility] drug screen updated today (salivary sample. Patient emptied bladder prior to physician ordering [facility]) -Referral made to [facility] for psychiatry and med management. Discussed with patient that if I refill his xanax, it will be in taper form and only until he sees psychiatry. -Continue Wellbutrin 75 mg po daily * Assessment & Plan Note - Mandy Lyles DO - 06/02/2023 4:19 PM CDT Associated Problem(s): Dyslipidemia Patient with history of hyperlipidemia. Currently trying to stresses diet. At previous visit in October has been focusing on eating more nuts walnuts almonds. Not currently on any statin therapy. Heis on testosterone supplementation prescribed by urologist. Has [...] few days prior to his next appointment documented in this encounter Plan of Treatment Scheduled Orders Name Type Priority Associated Diagnoses Orde r Schedule [facility] DRUG SCREEN Lab Routine IGGY (generalized anxiety disorder) shelter prescription benzodiazepine use Expected: 06/02/2023, Expires: 06/02/2024 Scheduled Referrals Name Type Priority Associated Diagnoses Order Schedule AMB REFERRAL TO PSYCHIATRY Outpatient Referral Routine IGGY (generalized anxiety disorder) Ordered: 06/02/2023 AMB REFERRAL TO COLORECTAL SURGERY Outpatient Referral Routine Screening for colon cancer Ordered: 06/02/2023 documented as of this encounter Visit Diagnoses Diagnosis IGGY (generalized anxiety disorder)- Primary Generalized anxiety disorder Dyslipidemia Other and unspecified hyperlipidemia Primary hypertension Unspecified essential hypertension Screening for colon cancer Special screening for malignant neoplasms, colon shelter prescription benzodiazepine use Gastroesophageal reflux disease without esophagitis Esophageal reflux documented in this encounter Care Teams Powder Press Operator Relationship Specialty Start Date End Date Mandy Lyles DO [address] [place] [address] PCP - General Family Medicine 06/02/23 08/10/23 documented as of this encounter
--- OUTSIDE RECORDS SUMMARY | 2024-08-23 12:05 | XMS_ITS | Encounter Summary ---
Author Organization [facility] Address [address] [place] [address] Care Team Providers Care Stave Hewer Name Role Phone Joanna Mckeon NP Primary Care Provider [phone] Reason for Visit * Reason Comments Fall Ankle Pain Encounter Details Date Type Department Care Team (Late st Contact Info) Description 08/13/2024 2:00 PM NURSE GYNECOLOGY - 08/13/2024 3:57 PM [facility] Emergency [facility] Emergency Department [address] [place] [address] Closed fracture of distal end of right fibula, unspecified fracture morphology, initial encounter (Primary Dx) Discharge Disposition: Home Social History Tobacco Use Types Packs/Day Years [...] on file documented as of this encounter Last Filed Vital Signs Vital Sign Reading Time Taken Comments Blood Pressure 148/82 08/13/2024 3:56 PM NURSE GYNECOLOGY Pulse 79 08/13/2024 3:56 PM NURSE GYNECOLOGY Temperature 36.1 ??C (97 ??F) 08/13/2024 3:56 PM NURSE GYNECOLOGY Respiratory Rate 16 08/13/2024 3:56 PM NURSE GYNECOLOGY Oxygen Saturation 98% 08/13/2024 3:56 PM NURSE GYNECOLOGY Inhaled Oxygen Concentration - - Weight 81.6 kg (180 lb) 08/13/2024 2:06 PM NURSE GYNECOLOGY Height 177.8 cm (5' 10 ) 08/13/2024 2:06 PM NURSE GYNECOLOGY Body Mass Index 25.83 08/13/2024 2:06 PM NURSE GYNECOLOGY documented in this encounter Discharge Instructions * Attachments The following attachments cannot be sent through Care Everywhere. * Leg Fracture (AfterCare(R) Instructions(ER/ED)) (Niuean) documented in this encounter Medications at Time of Discharge Medication Sig Dispensed Refills Start Date End Date BD HYPODERMIC NEEDLE 18G X 1 MISC USE TO DRAW UP TESTOSTERONE 11/19/2020 buPROPion (WELLBUTRIN) 150 MG XL tablet Take 1 tablet (150 mg) by mouth Nightly 06/26/2024 Cholecalciferol (VITAMIN D PO) Take 5,000 Units by mouth daily lisinopril (ZESTRIL) 10 MG tablet Take 1 tablet (10 mg) by mouth Nightly 06/26/2024 naltrexone (DEPADE) 50 MG tablet Take 1 tablet (50 mg) by mouth Nightly 06/26/2024 omeprazole (PRILOSEC) 40 MG capsule Take 1 capsule (40 mg) by mouth as needed tadalafil (CIALIS) 20 MG tablet Take 1 tablet (20 mg) by mouth daily as needed 05/10/2024 HYDROcodone-acetamino phen (NORCO) 7.5-325 MG per tabletIndications:Kelle sed fracture of distal end of right fibula, unspecified fracture morphology, initial encounter Take 1 tablet by mouth every 4 hours as needed 10 tablet 08/13/2024 08/15/2024 documented as of this encounter ED Notes * Maria De Jesus Rascon, ASHLEY - 08/13/2024 3:56 PM CST Patient left ED via wheechair. Provided crutches. Referral made to Ortho. verbal and alert, Writtenand Verbal discharge instructions reviewed with patient. skin warm and pink, respirations even and nonlabored, vitals stable, no complaints or concerns voiced. E GYNECOLOGY * Maria De Jesus Rascon RN - 08/13/2024 3:[address] Bai ordered to give patient two norco 7.5mg tablets to take home with him due to pharmacy being closed. Patient instructed on medication administration and side effects. E GYNECOLOGY * Maria De Jesus Rascon RN - 08/13/2024 2:43 PM CST Patient states he is not taking his Naltrexone. When asked when he stopped patient states he has not taken it in over a month, E GYNECOLOGY * Jordan Bai MD - 08/13/2024 2:38 PM CST Images from the original note were not included. [facility] Emergency Room General Encounter CHIEF COMPLAINT Chief Complaint Patient presents with Fall Ankle Pain HPI John Veliz is a 54 y.o. male who presents with complaints of falling pain patient ports had a fall neck pain on has pain in his right ankle moderate to severe sharp better with rest EMS PRE-ARRIVAL TREATMENT: REVIEW OF SYSTEMS CONSTITUTIONAL: No complaints of fever, chills,or weakness EYES: No complaints of discharge ENT: No complaints of sore throat or ear pain CARDIOVASCULAR: No complaints of chest pain, palpitations, or swelling RESPIRATORY: No complaints of cough or shortness of breath GI: No complaints of abdominal pain, nausea, vomiting, or diarrhea MUSCULOSKELETAL: No complaints of back pain SKIN: No complaints of rash NEUROLOGIC: No complaints of headache, focal weakness, or sensory changes ENDOCRINE: No complaints of polyuria or polydipsia LYMPHATIC: No complaints of swollen glands GENITOURINARY: No complaints of urinary frequency or hematuria PAST MEDICAL HISTORY Past Medical History: Diagnosis Date Anxiety Depression (disease) Low testosterone in male FAMILY HISTORY Family History Problem Relation Name Age of Onset Depression Mother Depression Father Alcohol Abuse Paternal Uncle SOCIAL HISTORY Social History Socioeconomic History Marital status: Single Tobacco Use Smoking status: Some Days Current packs/day: 0.00 Types: Cigarettes Last attempt to quit: 01/22/2015 Years since quittin.5 Smokeless tobacco: Former Tobacco comments: Exposed to second hand smoke Vaping Use Vaping status: Never Used Substance and Sexual Activity Alcohol use: Not Currently Comment: occasional Drug use: No Social Determinants of Health [facility] Family and Community Support Received from [facility] Abuse Screen Received from [facility] Housing Stability SURGICAL HISTORY Past Surgical History: Procedure Laterality Date Shoulder surgery 2001 left CURRENT MEDICATIONS No current facility-administered medications for this encounter. Current Outpatient Medications: ALPRAZolam (XANAX) 0.5 MG tablet, Take 1 tablet (0.5 mg) by mouth 2 times daily as needed, Disp: 14tablet, Rfl: 2 BD HYPODERMIC NEEDLE 18G X 1 MISC, USE TO DRAW UP TESTOSTERONE, Disp: , Rfl: buPROPion (WELLBUTRIN) 150 MG XL tablet, Take 1 tablet (150 mg) by mouth Nightly, Disp: , Rfl: Cholecalciferol (VITAMIN D PO), Take 5,000 Units by mouth daily, Disp: , Rfl: clomiPHENE (CLOMID) 50 MG tablet, TAKE 1 TABLET BY MOUTH 3 TIMES WEEKLY, Disp: 36 tablet, Rfl: 3 HYDROcodone-acetaminophen (NORCO) 7.5-325 MG per tablet, Take 1 tablet by mouth every 4 hours as needed, Disp: 10 tablet, Rfl: 0 lisinopril (ZESTRIL) 10 MG tablet, Take 1 tablet (10 mg) by mouth Nightly, Disp: , Rfl: losartan (COZAAR) 25 MG tablet, Take 1 tablet (25 mg) by mouth daily, Disp: 90 tablet, Rfl: 0 naltrexone (DEPADE) 50 MG tablet, Take 1 tablet (50 mg) by mouth Nightly, Disp: , Rfl: omeprazole (PRILOSEC) 40 MG capsule, Take 1 capsule (40 mg) by mouth as needed, Disp: , Rfl: tadalafil (CIALIS) 20 MG tablet, Take 1 tablet (20 mg) by mouth daily as needed, Disp: , Rfl: testosterone cypionate (DEPO-TESTOSTERONE) 200 MG/ML injection, INJECT 1 ML IN THE MUSCLE EVERY 12 DAYS, Disp: 10 mL, Rfl: 5 ALLERGIES Allergies Allergen Reactions Codeine Itching Pt states he feels hot, itchy, and he vomits. PHYSICAL EXAM VITAL SIGNS: ED Triage Vitals [08/13/24 1406] Temp Temp src Pulse Resp BP SpO2 97.7 ??F (36.5 ??C) Tympanic 80 17 (!) 148/82 97 % -- Visit Vitals BP (!) 148/82 Pulse 80 Temp 97.7 ??F (36.5 ??C) (Tympanic) Resp 17 Ht 5' 10 Wt 180 lb (81.6 kg) SpO2 97% BMI 25.83 kg/m?? Smoking Status Some Days BSA 2.01 m?? Constitutional: Well developed. Well nourished. Alert. HEENT: Normocephalic. Atraumatic. Oropharynx clear. Bilateral external ears normal. Oropharynx moist. Uvula in the midline position. Nose normal. Eyes: PERRLA. EOMI. Conjunctiva normal. No discharge. Neck: Supple. Normal range of motion. No tenderness. Trachea midline. Cardiovascular: Normal heart rate. Normal rhythm. No murmurs. No rubs. No gallops. Thorax & Lungs: Equal bilateral breath sounds. No respiratory distress. No retractions. No wheezes. No rales. No rhonchi. Skin: Warm. No erythema. No rash. Normal color. Abdomen: Normal bowel sounds. Soft. No distention. No tenderness to palpation. No guarding. No rebound. No palpable or pulsatile masses. Extremities: Intact distal pulses. Noted swelling bruising of right ankle distal neurovascular intact limited range motion secondary to pain Neurologic: Alert & appropriate. Normal motor function. Normal sensory function. No focal deficits noted. Cranial nerves intact. Speech is clear. EKG RADIOLOGY/PROCEDURES XR ANKLE RIGHT MIN 3 VIEWS Final Result by Maximo Rain MD (08/13 1439) EXAM: XR ANKLE RIGHT MIN 3 VIEWS CLINICAL INDICATION: Patient fell COMPARISON: There is no previous study for comparison. FINDINGS: 3 views of the right ankle reveal a fracture of the distal fibula with 3 mm displacement. No other fracture or dislocation is seen. IMPRESSION: Fracture of the distal right fibula. Electronically signed by: Maximo Rain MD 08/13/2024 02:39 PM [facility] CT HEAD WO CONTRAST Final Result by Maximo Rain MD (08/13 1439) EXAM: CT HEAD WO CONTRAST CLINICAL INDICATION: [...] by: Maximo Rain MD 08/13/2024 02:39 PM NURSE GYNECOLOGY RP COURSE & MEDICAL DECISION MAKING No results found for this or any previous visit (from the past 24 hour(s)). Old charts were reviewed per [employer] EMR. Pertinent details are summarized above. All laboratory, radiologic, and EKG studies that were performed in the Emergency Department were a necessary part of the evaluation needed to exclude unstable or emergent medical conditions. Patient was hemodynamically and neurologically stable in the ED. Pertinent studies were reviewed as above. The patient received: Medications - No data to display I have reviewed the patient???s prescription history via a prescription monitoring program. This information is consistent with my knowledge of the patient???s controlled substance use history. Patient placed in a splint advised to be nonweightbearing pain medication follow up with ortho thisweek keep leg elevated patient reports he has been on naltrexone in the past but has not taken it for over a month this was for alcohol withdrawal FINAL IMPRESSION ICD-10-CM ICD-9-CM 1. Closed fracture of distal end of right fibula, unspecified fracture morphology, initial encounter S82.831A 824.8 Final Disposition Discharge MD Bhumika Ayala Joshua, MD 08/13/24 1443 E GYNECOLOGY documented in this encounter Miscellaneous Notes * Triage Assessment - Maria De Jesus Rascon RN - 08/13/2024 2:07 PM CST Patient to ED with complaints of a fall and right ankle injury on Wednesday. Patient states he fellin his bathroom and hit his head on the toilet and twisted his ankle. Patient denies LOC. Only complaint is right ankle pain and swelling E GYNECOLOGY documented in this encounter Plan of Treatment Not on file documented as of this encounter Procedures Procedure Name Priority Date/Time Associated Diagnosis Comments CT CERVICAL SPINE WO CONTRAST STAT 08/13/2024 3:22 PM NURSE GYNECOLOGY XR ANKLE RIGHT MIN 3 VIEWS STAT 08/13/2024 2:[address] HEAD WO CONTRAST STAT 08/13/2024 2 :28 PM NURSE GYNECOLOGY documented in this encounter Results * CT CERVICAL SPINE WO CONTRAST (08/13/2024 3:22 PM NURSE GYNECOLOGY) Anatomical Region Laterality Modality C-spine Computed Tomogra phy 08/13/2024 3:12 PM NURSE GYNECOLOGY Narrative 08/13/2024 3:33 PM NURSE GYNECOLOGY EXAM: CT CERVICAL SPINE WO CONTRAST CLINICAL [...] by: ??Maximo Rain MD ??08/13/2024 03:33 PM NURSE GYNECOLOGY RP Procedure Note Maximo Rain MD - 08/13/2024 EXAM: CT CERVICAL SPINE WO CONTRAST CLINICAL INDICATION: Patient fell COMPARISON: There is no previous study for comparison. TECHNIQUE: CT scan of the cervical spine was done using contiguous [id number] sections through the cervical spine with sagittal [...] by: Maximo Rain MD 08/13/2024 03:33 PM NURSE GYNECOLOGY RPWorkstation: [id number] Jordan Bai MD [facility] CT ORDERABLE S * XR ANKLE RIGHT MIN 3 VIEWS (08/13/2024 2:28 PM NURSE GYNECOLOGY) Anatomical Region Laterality Modality Ankle Radiographic Matilda ging 08/13/2024 2:28 PM NURSE GYNECOLOGY Narrative 08/13/2024 2:39 PM NURSE GYNECOLOGY EXAM: XR ANKLE RIGHT MIN 3 VIEWS CLINICAL INDICATION: Patient fell COMPARISON: There is no previous study for comparison. FINDINGS: 3 views of the right ankle reveal a fracture of the distal fibula with 3 mm displacement. No other fracture or dislocation is seen. IMPRESSION: Fracture of the distal right fibula. Electronically signed by: ??Maximo Rain MD ??08/13/2024 02:39 PM NURSE GYNECOLOGY RP Procedure Note Maximo Rain MD - [...] by: Maximo Rain MD 08/13/2024 02:39 PM NURSE GYNECOLOGY RPWorkstation: [id number] Jordan Bai MD [facility] DIAG ORDERAB LES * CT HEAD WO CONTRAST (08/13/2024 2:28 PM NURSE GYNECOLOGY) Anatomical Region Laterality Modality Head Computed Tomogra phy 08/13/2024 2:28 PM NURSE GYNECOLOGY Narrative 08/13/2024 2:39 PM NURSE GYNECOLOGY EXAM: CT HEAD WO CONTRAST CLINICAL INDICATION: [...] by: ??Maximo Rain MD ??08/13/2024 02:39 PM [facility] RP Procedure Note Maximo Rain MD - [...] by: Maximo Rain MD 08/13/2024 02:39 PM [facility] RPWorkstation: [id number] Jordan Bai MD [facility] CT ORDERABLE S documented in this encounter Visit Diagnoses Diagnosis Closed fracture of distal end of right fibula, unspecified fracture morphology, initial encounter- Primary documented in this encounter Administered Medications Inactive Administered Medications - up to 3 most recent administrations Medication Order MAR Action Action Date Dose Rate Site HYDROcodone-acetaminophen (NORCO) 7.5-325 MG per tablet 2 tablet 2 tablet, Oral, Once, 1 dose, On 08/13/24 at 1515, STAT, Maximum dose of acetaminophen is 4000 mg from all sources in 24 hours. Given 08/13/2024 3:15 PM NURSE GYNECOLOGY 2 tablets documented in this encounter Active and Recently Administered Medications Times are shown in NURSE GYNECOLOGY. Scheduled Medication Order 08/11/2024 08/12/2024 08/13/2024 HYDROcodone-acetaminophen (NORCO) 7.5-325 MG per tablet 2 tablet (COMPLETED) 2 tablet, Oral, Once, 1 dose, On 08/13/24 at 1515, STAT, Maximum dose of acetaminophen is 4000 mg from all sources in 24 hours. 1515 (Given - Provid er: Maria De Jesus Rascon RN - Comment: given to take at home due to pharmacy being closed per MD) documented in this encounter Care Teams Stave Hewer Relationship Specialty Start Date End Date Joanna Mckeon NP [address] [place] [address] PCP - General Physician Neurological Surgeon 08/31/23 documented as of this encounter
--- OUTSIDE RECORDS SUMMARY | 2024-08-23 12:05 | XMS_ITS | Encounter Summary ---
Author Organization [facility] Address [address] [place] [id number] Care Team Providers Care Machine Finisher Name Role Phone Mandy Lyles DO Primary Care Provider Reason for Visit * Reason Comments Follow-up Patient states that he has been doing his testosterone injections at home. Encounter Details Date Type Department Care Team (Late st Contact Info) Description 08/02/2023 1:00 PM DIGITAL ADVERTISING ANALYST Office Visit [facility] [address] [place] [phone] Hi Deluna MD [address] [place] [phone] Secondary polycythemia (Primary Dx); Testosterone deficiency Social History Tobacco Use Types Packs/Day Years Used Date Smoking Tobacco: Some Days Cigarettes Last attempted to quit: 01/22/2015 Smokeless Tobacco: Former Tobacco Cessation:Ready to Q uit: No; Counseling Given: Yes Comments:Exposed to second hand smoke Alcohol Use [...] In the last 10 days, have yo tobi been in contact with someone who was confirmed or suspected to have Coronavirus/COVID-19? No / Unsure 07/06/2023 8:08 AM CDT documented as of this encounter Last Filed Vital Signs Vital Sign Reading Time Taken Comments Blood Pressure - - Pulse - - Temperature - - Respiratory Rate 18 08/02/2023 1:20 PM DIGITAL ADVERTISING ANALYST Oxygen Saturation - - Inhaled Oxygen Concentration - - Weight 82.1 kg (181 lb) 08/02/2023 1:20 PM DIGITAL ADVERTISING ANALYST Height 177.8 cm (5' 10 ) 08/02/2023 1:20 PM DIGITAL ADVERTISING ANALYST Body Mass Index 25.97 08/02/2023 1:20 PM DIGITAL ADVERTISING ANALYST documented in this encounter Progress Notes * Hi Deluna MD - 08/02/2023 1:00 PM CST Images from the original note were not included. To the patient: [employer] now allows progress notes to be visible to patients. Please note that these notes include professional medical terminology that may be somewhat confusing without some interpretation from yourmedical professional team. The intent of progress notes is to communicate information between any medical advisor involved in your case and to serve as future reference for myself or any other provider when reviewing your case. If you have questions about terminology or details in your progress notes, it is important to me that we have the time to discuss and answer questions so that you understand your plan of care. I'll be glad to discuss these during your next appointment, or we can schedule an office visit or telehealth visit to review sooner. 08/02/2023 Chief Complaint Patient presents with ??? Follow-up Patient states that he has been doing his testosterone injections at home. HPI John Veliz is a 53 y.o. male who presents with hypogonadism. Good energy level. Feels there is a benefit from TRT. Wants to continue. Would like to get nursing visits for TRT as he is uncomfortable giving the shots himself. Denies urinary complaints. Past Medical History: Diagnosis Date ??? Anxiety ??? Depression (disease) ??? Low testosterone in male Past Surgical History: Procedure Laterality Date ??? SHOULDER SURGERY 2001 left Social History Socioeconomic History ??? Marital status: Single Tobacco Use ??? Smoking status: Some Days Packs/day: 1 Types: Cigarettes Last attempt to quit: 01/22/2015 Years since quittin.5 ??? Smokeless tobacco: Former ??? Tobacco comments: Exposed to second hand smoke Vaping Use ??? Vaping Use: Never used Substance and Sexual Activity ??? Alcohol use: Not Currently Comment: occasional ??? Drug use: No Family History Problem Relation Age of Onset ??? Depression Mother ??? Depression Father ??? Alcohol Abuse Paternal Uncle Allergies Allergen Reactions ??? Codeine Itching Pt states he feels hot, itchy, and he vomits. Medications: Current Outpatient Medications Medication Sig Dispense Refill ??? ALPRAZolam (XANAX) 0.5 MG tablet Take 1 tablet (0.5 mg) by mouth 2 times daily as needed 14 tablet 2 ??? BD HYPODERMIC NEEDLE 18G [...] by mouth daily 90 tablet 0 ??? omeprazole (PRILOSEC) 40 MG capsule Take 1 capsule (40 mg) by mouth as needed ??? testosterone cypionate (DEPO-TESTOSTERONE) 200 MG/ML injection Indications: Deficient Activity of the Testis Inject 1 ml in large muscle every 12 days. 10 mL 1 No current facility-administered medications for this visit. REVIEW OF SYSTEMS History obtained from the patient All other systems of the 10 point review of systems were reviewed and were found to be unremarkable, other than those mentioned in the HPI. PHYSICAL EXAMINATION: Constitutional: WDWN in NAD, appearing stated age, normal development; reasonable grooming and bodyhabitus Vitals: Visit Vitals Resp 18 Ht 5' 10 Wt 181 lb (82.1 kg) BMI 25.97 kg/m?? Smoking Status Some Days BSA 2.01 m?? МАРИЯ: Mild BPH. No nodules. Hemorrhoids noted. Labs: Urine Dipstick Recent Labs Lab 01/25/23 1142 11/30/22 1532 BLOODU Trace Negative LEUKOCYTESUR neg Negative NITRITE neg Negative GLUCOSEU Negative Negative PROTEINUA Negative Trace BILIRUBINUR neg Negative UROBILINOGEN 0.2 Normal PHUR 5.5 7 KETONESU Negative Negative SPECGRAV 1.020 1.005 Recent Labs Lab 07/06/23 0907 01/16/23 0958 10/17/22 0858 07/19/21 0845 WBC 5.3 5.5 7.3 5.9 HGB 16.8 16.1 17.6* 15.8 PLT 210 291 319 293 Recent Labs Lab 07/06/23 0907 01/16/23 0958 10/17/22 0858 07/19/21 0845 BUN 13 17 7 16 CREATININE 1.3 1.3 1.2 1.2 NA 140 137 136 131* K 3.9 4.1 3.1* 4.0 CALCIUM 9.3 9.5 10.0 8.5 GLU 107 107 96 97 Assessment and Plan: Hypgonadism: Continue TRT. 200 mg cypionate every 2 weeks - may come in with medication for nursingvisit (IM injection). Total and free T, estrogens, PSA today. Follow up in 6 months with TRT labs, МАРИЯ. Last HCT 50.6 (this month). Return in about 6 months (around 01/31/2024) for with [facility]. [facility] Please Note: 1) Please note that the ???After Visit Summary?? which is printed out for you at the time of check-out is often printed prematurely, before I have had a chance to complete my professional notes for that visit. Therefore your After Visit Summary may be incomplete at the time of printing, not contain all of the diagnoses or reflect all of the issues we covered, as things are added/subtracted as I complete my actual progress note, which is done later after the visit. 2) As patients may now have access to the actual ???progress notes?? from the visit, please understand that the progress note is traditionally a professional document using professional medical terminology and is intended as a way to convey information between other professionals involved in the case, or to serve as future reference for the physician when looking back to previous notes. Therefore, if you have questions about terminology or documentation in the actual progress notes, I will be glad to go over this with you at your next appointment, but given our time constraints I cannot respond to questions about progress notes from patients through [employer] messages or phone calls until the next visit. TAL ADVERTISING ANALYST documented in this encounter Miscellaneous Notes * Addendum Note - Hieu Shelby LPN - 08/02/2023 1:00 PM CSTAddended by: HIEU SHELBY on: 08/02/2023 02:49 PM Modules accepted: Orders TAL ADVERTISING ANALYST documented in this encounter Plan of Treatment Not on file documented as of this encounter Results * PSA TOTAL, DIAGNOSTIC (08/02/2023 1:49 PM DIGITAL ADVERTISING ANALYST) Prostate Specific Antigen Total 0.64 0 - 4.0 NG/ML [facility] [employer] [facility] [employer] PSA Comment SEE NOTES [facility] [employer] Comment: The Access [employer]br[employer] PSA assay is a paramagnetic particle, chemiluminescent immunoassay for the quantitative determination of prostate specific antigen (PSA) levels in human serum using the Access Immunoassay Systems. Blood 08/02/2023 1:49 PM DIGITAL ADVERTISING ANALYST 08/02/2023 1:53 PM DIGITAL ADVERTISING ANALYST Hi Deluna MD CHEMISTRY ORD ERABLES [facility] [employer] [address] [place] [address], [facility] documented in this encounter Visit Diagnoses Diagnosis Secondary polycythemia- Primary Polycythemia, secondary Testosterone deficiency Other testicular hypofunction documented in this encounter Administered Medications Inactive Administered Medications - up to 3 most recent administrations Medication Order MAR Action Action Date Dose Rate Site testosterone cypionate (DEPO-TESTOSTERONE) injection 200 mg 200 mg, Intramuscular, ONCE, 1 dose, On Wed08/02/23 at 1530 Given 08/02/2023 2:47 PM DIGITAL ADVERTISING ANALYST 200 mg Right Ventrogluteal documented in this encounter Care Teams Machine Finisher Relationship Specialty Start Date End Date Mandy Lyles DO [address] [place] [address] PCP - General Family Medicine 06/02/23 08/10/23 documented as of this encounter
--- OUTSIDE RECORDS SUMMARY | 2024-08-23 12:05 | XMS_ITS | Encounter Summary ---
Author Organization [facility] Address [address] [place] [address] Care Team Providers Care Public Administration Professor Name Role Phone Joanna Mckeon NP Primary Care Provider +1- [phone] Reason for Visit * Reason Onset Date Comments Referral 08/14/2024 Encounter Details Date Type Department Care Team (Late st Contact Info) Description 08/14/2024 Telephone [facility] [address] [place] [address] Dina Madrigal NP [address] [place] [address] Referral Social History Tobacco Use Types Packs/Day Years [...] encounter Miscellaneous Notes * Telephone Encounter - Padmini Rodriguez LPN - 08/14/2024 8:19 AM SURVEY DATA TECHNICIAN Patient called back and schedule with Karen Madrigal for 08/21 EY DATA TECHNICIAN * Telephone Encounter - Padmini Rodriguez LPN - 08/14/2024 8:16 AM SURVEY DATA TECHNICIAN Attempt X1 to schedule 1 week f/u with Karen Madrigal: COMPUTER INSTALLATION ENGINEER; closed fx of distal end of right fibula. Seen in ED on 08/13. XR PRIOR. No answer, unable to leave vm. EY DATA TECHNICIAN documented in this encounter Plan of Treatment Not on file documented as of this encounter Visit Diagnoses Not on filedocumented in this encounter Care Teams Public Administration Professor Relationship Specialty Start Date End Date Joanna Mckeon NP [address] [place] [address] [address] [phone] PCP - General Physician Director Of Teaching And Learning 08/31/23 documented as of this encounter
--- OUTSIDE RECORDS SUMMARY | 2024-08-23 12:05 | XMS_ITS | Encounter Summary ---
Author Organization [facility] Address [address] [place] [address] Care Team Providers Care Loan Approver Name Role Phone Joanna Mckeon PATTERN GATER Primary Care Provider +1- [phone] Reason for Visit * Reason Comments Sinus Problem Cough Started yesterday Encounter Details Date Type Department Care Team (Late st Contact Info) Description 05/27/2024 10:30 AM CDT Office Visit [facility] [address] [place] [phone] Niya Mireles NP [facility] [place] [address] Influenza A (Primary Dx); Cough, unspecified type Social History Tobacco Use Types Packs/Day Years [...] Sign Reading Time Taken Comments Blood Pressure 132/78 05/27/2024 3:25 PM CDT Pulse 91 05/27/2024 3:25 PM CDT Temperature 37.5 ??C (99.5 ??F) 05/27/2024 3:25 PM CD T Respiratory Rate 18 05/27/2024 3:25 PM CDT Oxygen Saturation 97% 05/27/2024 3:25 PM CDT Inhaled Oxygen Concentration - - Weight 82.1 kg (181 lb) 05/27/2024 3:25 PM CDT Height 177.8 cm (5' 10 ) 05/27/2024 3:25 PM CDT Body Mass Index 25.97 05/27/2024 3:25 PM CDT documented in this encounter Progress Notes * Niya Mireles, ZIGGY - 05/27/2024 10:30 AM CDT Images from the original note were not included. Subjective: John Veliz is a 53 y.o. male. Chief Complaint: John is seen today, 05/27/2024, complaining of or following up for Sinus Problem and Cough (Startedye ). HPI Patient is a 53 year old male who presents with exposure to influenza. Co fever chills Past Medical History: Diagnosis Date Anxiety Depression (disease) Low testosterone in male Past Surgical History: Procedure Laterality Date SHOULDER SURGERY 2001 left Family History Problem Relation Age of Onset Depression Mother Depression Father Alcohol Abuse Paternal Uncle Social History Socioeconomic History Marital status: Single Spouse name: Not on file Number of children: Not on file Years of education: Not on file Highest education level: Not on file Occupational History Not on file Tobacco Use Smoking status: Some Days Packs/day: 1 Types: Cigarettes Last attempt to quit: 01/22/2015 Years since quittin.3 Smokeless tobacco: Former Tobacco comments: Exposed to second hand smoke Vaping Use Vaping Use: Never used Substance and Sexual Activity Alcohol use: Not Currently Comment: occasional Drug use: No Sexual activity: Not on file Other Topics Concern Not on file Social History Narrative Not on file Social Determinants of Health Financial Resource Strain: Not on file Food Insecurity: Not on file Transportation Needs: Not on file Physical Activity: Not on file Stress: Not on file Social Connection: Not on file Intimate Partner Violence: Not on file Housing Stability: Not on file Current Outpatient Medications Medication Sig Dispense Refill ALPRAZolam (XANAX) 0.5 MG tablet Take 1 tablet (0.5 mg) by mouth 2 times daily as needed 14 tablet 2 BD HYPODERMIC NEEDLE 18G X 1 MISC USE TO DRAW UP TESTOSTERONE Cholecalciferol (VITAMIN D PO) Take 5,000 Units by mouth daily clomiPHENE (CLOMID) 50 MG tablet TAKE 1 TABLET BY MOUTH 3 TIMES WEEKLY 36 tablet 3 losartan (COZAAR) 25 MG tablet Take 1 tablet (25 mg) by mouth daily 90 tablet 0 omeprazole (PRILOSEC) 40 MG capsule Take 1 capsule (40 mg) by mouth as needed oseltamivir (TAMIFLU) 75 MG capsule Take 1 capsule (75 mg) by mouth 2 times daily for 5 days 10 capsule 0 testosterone cypionate (DEPO-TESTOSTERONE) 200 MG/ML injection INJECT 1 ML IN THE MUSCLE EVERY 12 DAYS 10 mL 5 No current facility-administered medications for this visit. Allergies Allergen Reactions Codeine Itching Pt states he feels hot, itchy, and he vomits. Review of Systems A 10 point review of systems has been deemed within normal limits unless otherwise specified in theHPI. Objective: Physical Exam Constitutional: He is oriented to person, place, and time. HENT: Mouth/Throat: Mucous membranes are moist. Oropharynx is clear. Eyes: Pupils are equal, round, and reactive to light. Cardiovascular: Normal rate and regular rhythm. Pulmonary/Chest: Effort normal and breath sounds normal. Abdominal: Normal appearance. Neurological: He is alert and oriented to person, place, and time. Skin: Skin is warm and dry. Visit Vitals BP 132/78 Pulse 91 Temp 99.5 ??F (37.5 ??C) (Tympanic) Resp 18 Ht 5' 10 Wt 181 lb (82.1 kg) SpO2 97% BMI 25.97 kg/m?? Smoking Status Some Days BSA 2.01 m?? Assessment: Problem List Items Addressed This Visit None Visit Diagnoses Influenza A - Primary Relevant Medications oseltamivir (TAMIFLU) 75 MG capsule Cough, unspecified type Relevant Orders POCT INFLUENZA A/B (Completed) Plan: John was seen today for sinus problem and cough. Diagnoses and all orders for this visit: Influenza A - oseltamivir (TAMIFLU) 75 MG capsule; Take 1 capsule (75 mg) by mouth 2 times daily for 5 days Cough, unspecified type - POCT INFLUENZA A/B Influenza A- influenza a Positive at this time. Will order tamiflu. May take tylenol and Ibuprofen as needed for pain and fever. Follow up as indicated or sooner if condition does not improve, or sooner if condition worsens. 1. Diagnosis discussed with the patient and all questions answered that were asked by patient/family. 2. Patient verbalizes understanding and agrees with the plan of care. 3. Patient will follow-up as directed, or sooner if condition worsens or fails to improve. 4. Medical history, along with reconciling the patients medication list, lab results, new medications ordered, and refills were listed in the patients medical record. 5. The patient is given an After Visit Summary sheet that lists all of their medications with directions, possible side effects of medications, their allergies, orders placed during this encounter, immunization dates, and follow- up instructions. I have reviewed and updated as appropriate the following: past family medical and social history, medications and allergies. Discussed the assessment and plan for the office visit today along with any side effects from any medications or other complications. Advised the Patient to please call or return to office if symptoms are worsening or not improving as expected. Please go to the Urgent Care/ER if we are not available. Niya Mireles NP 05/27/2024 4:10 PM This electronic publisher was created in part using [employer] Direct voice recognition software, electronically transcribed and electronically signed. Be aware that this electronic publisher may contain errors not detected by proofreading. documented in this encounter Plan of Treatment Not on file documented as of this encounter Procedures Procedure Name Priority Date/Time Associated Diagnosis Comments POCT INFLUENZA A/B Routine 05/27/2024 3: 47 PM CDT Cough, unspecified type documented in this encounter Results * POCT INFLUENZA A/B (05/27/2024 3:47 PM CDT) Influenza A Ab pos [facility] Influenza B Ab neg [facility] 05/27/2024 3:47 PM CDT Niya Mireles PATTERN GATER POINT OF CARE TEST O RDERABLES YONATHAN MCMANUS [place] [id number] [address] documented in this encounter Visit Diagnoses Diagnosis Influenza A- Primary Influenza with other respiratory manifestations Cough, unspecified type documented in this encounter Care Teams Loan Approver Relationship Specialty Start Date End Date Joanna Mckeon NP [facility] [address] [place] [address] PCP - General Physician Electronic Plotting System Operator 08/31/23 documented as of this encounter
--- OUTSIDE RECORDS SUMMARY | 2024-08-23 12:05 | XMS_ITS | Encounter Summary ---
Author Organization [facility] Address [address] [place] [address] Care Team Providers Care Court Magistrate Name Role Phone Mandy Lyles DO Primary Care Provider [phone] Encounter Details Date Type Department Care Team (Late st Contact Info) Description 06/04/2023 Letter (Out) [facility] [address] [place] [address] Social History Tobacco Use Types Packs/Day Years [...] PM CDT documented as of this encounter Plan of Treatment Not on file documented as of this encounter Visit Diagnoses Not on filedocumented in this encounter Care Teams Court Magistrate Relationship Specialty Start Date End Date Mandy Lyles DO [address] [place] [address] PCP - General Family Medicine 06/02/23 08/10/23 documented as of this encounter
--- OUTSIDE RECORDS SUMMARY | 2024-08-23 12:05 | XMS_ITS | Encounter Summary ---
Author Organization [facility] Address [address] [place] [address] Care Team Providers Care Motor Vehicle Assembler Name Role Phone Joanna Mckeon MILITARY LAWYER Primary Care Provider [phone]- [phone] Encounter Details Date Type Department Care Team (Late st Contact Info) Description 08/21/2024 Orders Only [facility] [address] [place] [address] Dina Madrigal NP [address] [place] [address] Closed fracture of distal end of right fibula, unspecified fracture morphology, initial encounter (Primary Dx) Social History Tobacco Use Types Packs/Day Years [...] as of this encounter Plan of Treatment Scheduled Orders Name Type Priority Associated Diagnoses Orde r Schedule XR ANKLE RIGHT MIN 3 VIEWS Imaging Routine Closed fracture of distal end of right fibula, unspecified fracture morphology, initial encounter Expected: 08/21/2024 (Approximate), Expires: 08/21/2025 documented as of this encounter Visit Diagnoses Diagnosis Closed fracture of distal end of right fibula, unspecified fracture morphology, initial encounter- Primary documented in this encounter Care Teams Motor Vehicle Assembler Relationship Specialty Start Date End Date Joanna Mckeon NP [address] [place] [address] [address] [place] [address] PCP - General Physician Ticket Collector Or Usher 08/31/23 documented as of this encounter
--- OUTSIDE RECORDS SUMMARY | 2024-08-23 12:05 | XMS_ITS | Encounter Summary ---
Author Organization [facility] Address [address] [place] [address] Care Team Providers Care Reference Services Head Name Role Phone Rafal Mandybilly Quiles DO Primary Care Provider [phone] Encounter Details Date Type Department Care Team (Latest Contact Info) Description 08/02/2023 2:00 PM CUSTOMS OFFICER Lab/X-Ray Only [facility] [address] [place] [address] Hi Deluna MD [address] [place] [address] Testosterone deficiency; Male hypogonadism Social History Tobacco Use Types Packs/Day Years [...] Procedure Name Priority Date/Time Associated Diagnosis Comments MISC REF LAB Routine 08/02/2023 1:54 PM CUSTOMS OFFICER Male hypogonadism PSA TOTAL, DIAGNOSTIC Routine 08/02/2023 1:49 PM CUSTOMS OFFICER Testosterone deficiency documented in this encounter Results * MISC REF LAB (08/02/2023 1:54 PM CUSTOMS OFFICER) Miscellaneous Ref Lab DONE [facility] - [employer] Blood 08/02/2023 1:54 PM CUSTOMS OFFICER 08/02/2023 1:57 PM CUSTOMS OFFICER Hi Deluna MD LAB SEND OUT ORDERABLES Performing Organization Address [facility] Co de Phone Number [facility] [employer] [address] [place] [address] * PSA TOTAL, DIAGNOSTIC (08/02/2023 1:49 PM CUSTOMS OFFICER) Prostate Specific Antigen Total 0.64 0 - 4.0 NG/ML [facility] [employer] PSA Comment SEE NOTES [facility] [employer] Comment: The Access Hybritech PSA assay is a paramagnetic particle, chemiluminescent immunoassay for the quantitative determination of prostate specific antigen (PSA) levels in human serum using the [employer] Immunoassay Systems. Blood 08/02/2023 1:49 PM CUSTOMS OFFICER 08/02/2023 1:53 PM CUSTOMS OFFICER Hi Deluna MD CHEMISTRY ORD ERABLES Performing Organization Address [facility]/ZIP Co de Phone Number [facility] [employer] [address] [place] [address] documented in this encounter Visit Diagnoses Diagnosis Testosterone deficiency Other testicular hypofunction Male hypogonadism Other testicular hypofunction documented in this encounter Care Teams Reference Services Head Relationship Specialty Start Date End Date Mandy Lyles DO [address] [place] [address] PCP - General Family Medicine 06/02/23 08/10/23 documented as of this encounter
--- OUTSIDE RECORDS SUMMARY | 2024-08-23 12:06 | XMS_ITS | Encounter Summary ---
Author Organization [facility] Address [address] [place] [address] Care Team Providers Care District Associate Judge Name Role Phone Niya Mcknight Primary Care Provider [phone]- [phone] Reason for Visit * Reason Comments Medication Refill Encounter Details Date Type Department Care Team ([facility] st Contact Info) Description 02/18/2023 Refill [facility] [address] [place] [address] Mandy Lyles DO [address] [place] [address] Medication Refill Social History Tobacco Use Types Packs/Day Years Used Date Smoking Tobacco: Former Cigarettes Q uit: 01/22/2015 Smokeless Tobacco: Former Comments:Exposed to second h and smoke Alcohol Use Standard Drinks/Week Comments Not Currently 0 (1 standard drink = 0.6 oz pur e alcohol) occasional Alcohol Use Answer Date Recorded Frequency of [...] suspected to have Coronavirus/COVID-19? No / Unsure 01/25/2023 11:17 AM CDT documented as of this encounter Plan of Treatment Not on file documented as of this encounter Visit Diagnoses Diagnosis IGGY (generalized anxiety disorder) Generalized anxiety disorder documented in this encounter Care Teams District Associate Judge Relationship Specialty Start Date End Date Niya Mcknight PA [address] [place] [address] PCP - General Family Medicine 03/11/22 06/01/23 documented as of this encounter
--- OUTSIDE RECORDS SUMMARY | 2024-08-23 12:06 | XMS_ITS | Encounter Summary ---
Author Organization [facility] Address [address] [place] [address] Care Team Providers Care Creasing And Cutting Press Feeder Name Role Phone Niya Mcknight Primary Care Provider [phone]- [phone] Reason for Visit * Reason Comments Follow-up F/U: still dealing w ith erectile dysfunction, exposed to second hand smoke, pt states T levels have been decreased due to not taking testosterone (needs prescription) Encounter Details Date Type Department Care Team (Late st Contact Info) Description 01/25/2023 11:45 AM CDT Office Visit [facility] [address] [place] [address] Hi Deluna MD [address] [place] [address] Male hypogonadism (Primary Dx) Social History Tobacco Use Types Packs/Day Years Used Date Smoking Tobacco: Former Cigarettes Q uit: 01/22/2015 Smokeless Tobacco: Former Tobacco Cessation:Counseling Given: Yes Comments:Exposed to second hand smoke [...] Recorded In the last 10 days, have alyssa britton been in contact with someone who was confirmed or suspected to have Coronavirus/COVID-19? No / Unsure 01/25/2023 11:17 AM CDT documented as of this encounter Last Filed Vital Signs Vital Sign Reading Time Taken Comments Blood Pressure 104/82 01/25/2023 11:32 AM CDT Pulse 78 01/25/2023 11:32 AM CDT Temperature 36.5 ??C (97.7 ??F) 01/25/2023 11:32 AM C DT Respiratory Rate 18 01/25/2023 11:32 AM CDT Oxygen Saturation 98% 01/25/2023 11:32 AM CDT Inhaled Oxygen Concentration - - Weight 76.2 kg (168 lb) 01/25/2023 11:32 AM CDT Height 177.8 cm (5' 10 ) 01/25/2023 11:32 AM CDT Body Mass Index 24.11 01/25/2023 11:32 AM CDT documented in this encounter Progress Notes * Hi Deluna MD - 01/25/2023 11:45 AM CDT Images from the original note were not included. To the patient: [employer] now allows progress notes to be visible to patients. Please note that these notes include professional medical terminology that may be somewhat confusing without some interpretation from yourmedical professional team. The intent of progress notes is to communicate information between any medical doctor md/medical director involved in your case and to serve [...] visit or telehealth visit to review sooner. 01/25/2023 Chief Complaint Patient presents with ??? Follow-up F/U: still dealing with erectile dysfunction, exposed to second hand smoke, pt states T levels havebeen decreased due to not taking testosterone (needs prescription) HPI John Veliz is a 52 y.o. male who presents with hypogonadism. His PCP would like his TRT managed here. He has been on TRT for at least 4 - 5 years. He is aware of the risks of TRT and we discussed again. His last CBC showed high normal hemoglobin. I have encouraged him to donate blood. He wants to continue TRT. It has been 1 month since his last injection. Past Medical History: Diagnosis Date ??? Anxiety ??? Depression (disease) ??? Low testosterone in male Past Surgical History: Procedure Laterality Date ??? SHOULDER SURGERY 2001 left Social History Socioeconomic History ??? Marital status: Single Tobacco Use ??? Smoking status: Former Packs/day: 1.00 Types: Cigarettes Quit date: 01/22/2015 Years since quittin.0 ??? Smokeless tobacco: Former ??? Tobacco comments: [...] 3 times daily as needed 90 tablet 1 ??? BD HYPODERMIC NEEDLE 18G X 1 MISC USE TO DRAW UP TESTOSTERONE ??? Cholecalciferol (VITAMIN D PO) Take 5,000 Units by mouth daily ??? clomiPHENE (CLOMID) 50 MG tablet TAKE 1 TABLET BY MOUTH 3 TIMES WEEKLY 36 tablet 0 ??? omeprazole (PRILOSEC) 40 MG [...] reasonable grooming and bodyhabitus Vitals: Visit Vitals BP 104/82 Pulse 78 Temp 97.7 ??F (36.5 ??C) (Tympanic) Resp 18 Ht 5' 10 Wt 168 lb (76.2 kg) SpO2 98% BMI 24.11 kg/m?? Smoking Status Former BSA 1.94 m?? Psych: Normal mood and affect Head: Atraumatic, normocephalic Eyes: Pupils equal, extraocular movements intact, sclera anicteric Ears: Normal pinna without defects b/l Nose: Nares patent Throat: Normal & symmetric motion of the tongue. No erythema visible. Neck: Supple, symmetric without mass; trachea midline Heart: No overt CHF, no obvious JVD Resp: Effort unlabored, normal excursion without use of accessory muscles. Abdomen: Soft Back: No CVA tenderness. No lordosis or kyphosis Skin: No rashes, lesions or ulcers Lymphatic: No palpable cervical or supraclavicular adenopathy Vascular: No JVD No peripheral edema. Musculoskeletal: Normal range of motion, good strength, tone, station and gait; no CCE Neurological: A&O, cranial nerves grossly intact; no obvious focal weakness or numbness Extremities: There is no edema, clubbing, or cyanosis. МАРИЯ: No BPH noted. No nodules. : Normal scrotum with mildly atropic testes bilaterally. Phallus appears to have findings of mildhypospadius. Labs: Urine Dipstick Recent Labs Lab 01/25/23 1142 11/30/22 1532 BLOODU Trace Negative LEUKOCYTESUR neg Negative NITRITE neg Negative GLUCOSEU Negative Negative PROTEINUA Negative Trace BILIRUBINUR neg Negative UROBILINOGEN 0.2 Normal PHUR 5.5 7 KETONESU Negative Negative SPECGRAV 1.020 1.005 Recent Labs Lab 01/16/23 0958 10/17/22 0858 07/19/21 0845 09/09/19 0841 WBC 5.5 7.3 5.9 6.4 HGB 16.1 17.6* 15.8 15.4 PLT 291 319 293 253 Recent Labs Lab 01/16/23 0958 10/17/22 0858 07/19/21 0845 10/11/20 0842 BUN 17 7 16 14 CREATININE 1.3 1.2 1.2 1.3 NA 137 136 131* 136 K 4.1 3.1* 4.0 4.0 CALCIUM 9.5 10.0 8.5 8.6 GLU 107 96 97 89 Normal dipstick. Reivewed recent: CBC, BMP, PSA, total and free T Assessment and Plan: Hypogonadism: Will continue previously rescribed TRT (1 mL of 200 mg/mL) every 12 days and clomiphene three times weekly. Total and free T, estrogen in 3 months (chart check for other PCP labs at that time). Patient would like to receive injections in our clinic via nurse visit. He will bring his testosterone with him. Return in about 6 months (around 07/28/2023) for with TRT labs. [facility] Please Note: 1) Please note that [...] questions about progress notes from patients through [employer] messages or phone calls until the next visit. documented in this encounter Plan of Treatment Not on file documented as of this encounter Procedures Procedure Name Priority Date/Time Associated Diagnosis Comments POCT URINALYSIS DIPSTICK (MANUAL) Routine 01/25/2023 11:42 AM CDT Male hypogonadism documented in this encounter Results * MISC REF LAB (08/02/2023 1:54 PM STEEL BOX TOE INSERTER) Miscellaneous Ref Lab DONE [facility] Blood 08/02/2023 1:54 PM STEEL BOX TOE INSERTER 08/02/2023 1:57 PM STEEL BOX TOE INSERTER Hi Deluna MD LAB SEND OUT ORDERABLES [facility] [address] [place] [address] * POCT URINALYSIS DIPSTICK (MANUAL) (01/25/2023 11:42 AM CDT) Leukocyte Esterase UA neg cell/hpf [facility] Nitrite UA neg mg/dL [facility] Urobilinogen UA 0.2 EU/dL [facility] Protein UA Negative mg/dL [facility] pH UA 5.5 pH [facility] Blood UA Trace Negative, Trace, Small, Moderate mg/dL [facility] Specific [place] UA 1.020 [facility] Ketones UA Negative mg/dL [facility] Bilirubin UA neg Negative, Small mg/dL [facility] Glucose UA Negative mg/dL [facility] Color Fluid Yellow [facility] GY [facility] Clarity Fluid Clear URO LOGY [facility] 01/25/2023 11:4 2 AM CDT Hi Deluna MD POINT OF CARE TEST ORDERABLES Performing Organization Address City/[facility]/ZIP Co de Phone Number [facility] [address] [place] [address] documented in this encounter Visit Diagnoses Diagnosis Male hypogonadism- Primary Other testicular hypofunction documented in this encounter Care Teams Creasing And Cutting Press Feeder Relationship Specialty Start Date End Date Niya Mcknight PA [address] [place] [id number] PCP - General Family Medicine 03/11/22 06/01/23 documented as of this encounter
--- OUTSIDE RECORDS SUMMARY | 2024-08-23 12:06 | XMS_ITS | Encounter Summary ---
Author Organization [facility] Address [address] [place] [address] Care Team Providers Care Menagerie Caretaker Name Role Phone Niya Mcknight Primary Care Provider +1- [phone] Reason for Visit * Reason Comments Medication Refill Encounter Details Date Type Department Care Team ([facility] st Contact Info) Description 01/27/2023 Refill [facility] Family Practice [address] [place] [address] Cody Simms PA [address] [place], [place] [id number] Medication Refill Social History Tobacco Use Types [...] as of this encounter Visit Diagnoses Diagnosis Long-term current use of testosterone replacement therapy documented in this encounter Care Teams Menagerie Caretaker Relationship Specialty Start Date End Date Niya Mcknight PA [address] [place] [address] PCP - General Family Medicine 03/11/22 06/01/23 documented as of this encounter
--- OUTSIDE RECORDS SUMMARY | 2024-08-23 12:06 | XMS_ITS | Encounter Summary ---
Author Organization [facility] Address [address] [place] [address] Care Team Providers Care Customer Insight Analyst Name Role Phone Niya Mcknight Primary Care Provider +1- [phone] Reason for Visit * Reason Comments Establish Care Patient is here for testosterone deficiency. * Referral (Routine) - Closed Specialty Diagnoses / Procedures Referred By Conturi t Referred To Contact Urology Diagnoses Testosterone deficiency Niya Mcknight PA [address] [place] [address] [facility] Practice [address] [place] [phone] Referral ID Status Reason Start Date Expiration Date V isits Requested Visits Authorized [id number] Closed Consult 10/22/2022 1 1 Encounter Details Date Type Department Care Team (Latest Contact Info) Description 11/30/2022 3:00 PM CDT Initial consult [facility] Urology [address] [place] [address] Hi Deluna MD [address] [place] [phone] Testosterone deficiency (Primary Dx) Social History Tobacco Use Types Packs/Day Years Used Date Smoking Tobacco: Former Cigarettes Q uit: 01/22/2015 Smokeless Tobacco: Former Tobacco Cessation:Counseling Given: Not Answered Alcohol Use Standard Drinks/Week Comments Not Currently [...] suspected to have Coronavirus/COVID-19? No / Unsure 11/30/2022 3:03 PM CDT documented as of this encounter Last Filed Vital Signs Vital Sign Reading Time Taken Comments Blood Pressure 130/90 11/30/2022 3:20 PM CDT Pulse 72 11/30/2022 3:20 PM CDT Temperature 36.7 ??C (98.1 ??F) 11/30/2022 3:20 PM CD T Respiratory Rate 18 11/30/2022 3:20 PM CDT Oxygen Saturation 98% 11/30/2022 3:20 PM CDT Inhaled Oxygen Concentration - - Weight 77.1 kg (170 lb) 11/30/2022 3:20 PM CDT Height 177.8 cm (5' 10 ) 11/30/2022 3:20 PM CDT Body Mass Index 24.39 11/30/2022 3:20 PM CDT documented in this encounter Progress Notes * Hi Deluna MD - 11/30/2022 3:00 PM CDT Images from the original note were not included. To the patient: [employer] now allows progress notes to be visible to patients. Please note that these notes include professional medical terminology that may be somewhat confusing without some interpretation from yourmedical professional team. The intent of progress notes is to communicate information between any clinical specialist medical device involved in your case and to serve [...] visit or telehealth visit to review sooner. 11/30/2022 Chief Complaint Patient presents with ??? Establish Care Patient is here for testosterone deficiency. HPI John Veliz is a 52 y.o. male who presents with low testosterone. On TRT. Last labs in normal range. Also has ED. On PRN Cialis 20 mg. Has given him some light headness when he's taken it... which compounds anxiety and causes more problems achieving erection. PCP has written Rx for daily Cialis 5 mginstead but he hasn't started this. Past Medical History: Diagnosis Date ??? Anxiety ??? Depression (disease) ??? Low testosterone in male Past Surgical History: Procedure Laterality Date ??? SHOULDER SURGERY 2001 left Social History Socioeconomic History ??? Marital status: Single Tobacco Use ??? Smoking status: Former Packs/day: 1.00 Types: Cigarettes Quit date: 01/22/2015 Years since quittin.8 ??? Smokeless tobacco: Former Vaping Use ??? Vaping Use: Never used [...] (40 mg) by mouth as needed ??? potassium chloride (K-DUR) 20 MEQ tablet Take 1 tablet (20 mEq) by mouth daily 90 tablet 0 ??? tadalafil (CIALIS) 20 MG tablet Take 1 tablet (20 mg) by mouth as needed for Erectile Dysfunction Indications: Erectile Dysfunction 90 tablet 0 ??? testosterone cypionate (DEPO-TESTOSTERONE) 200 MG/ML injection Inject 1 ml in large muscle every 12 days 10 mL 1 No current facility-administered medications for this visit. REVIEW OF SYSTEMS History obtained from the patient All other systems of the 10 point review of systems were reviewed and were found to be unremarkable, other than those mentioned in the HPI. PHYSICAL EXAMINATION: Constitutional: WDWN in NAD, appearing stated age, normal development; reasonable grooming and bodyhabitus Vitals: Visit Vitals BP 130/90 Pulse 72 Temp 98.1 ??F (36.7 ??C) (Tympanic) Resp 18 Ht 5' 10 Wt 170 lb (77.1 kg) SpO2 98% BMI 24.39 kg/m?? Smoking Status Former BSA 1.95 m?? Psych: Normal mood and affect Head: [...] There is no edema, clubbing, or cyanosis. Labs: Urine Dipstick Recent Labs Lab 11/30/22 1532 BLOODU Negative LEUKOCYTESUR Negative NITRITE Negative GLUCOSEU Negative PROTEINUA Trace BILIRUBINUR Negative UROBILINOGEN Normal PHUR 7 KETONESU Negative SPECGRAV 1.005 Recent Labs Lab 10/17/22 0858 07/19/21 0845 09/09/19 0841 02/27/19 0945 WBC 7.3 5.9 6.4 5.10 HGB 17.6* 15.8 15.4 16.9 PLT 319 293 253 227 Recent Labs Lab 10/17/22 0858 07/19/21 0845 10/11/20 0842 12/30/19 0836 BUN 7 16 14 22* CREATININE 1.2 1.2 1.3 1.5* NA 136 131* 136 141 K 3.1* 4.0 4.0 4.3 CALCIUM 10.0 8.5 8.6 8.6 GLU 96 97 89 105* Recent free and total testosterone reviewed. Assessment and Plan: Hypogonadism: On TRT by PCP. Last labs in normal range. ED: Patient can use PRN Cialis 10 - 20 mg. He may start with this as he's only taken 20 PRN. He canalso switch to 2.5 - 5 mg PO daily and try that instead. He can add L- Arginine OTC. Follow up PRN No follow-ups on file. [facility] Please Note: 1) Please note [...] questions about progress notes from patients through [employer] messages or phone calls until the next visit. documented in this encounter Plan of Treatment Not on file documented as of this encounter Procedures Procedure Name Priority Date/Time Associated Diagnosis Comments POCT URINALYSIS DIPSTICK (MANUAL) Routine 11/30/2022 3:32 PM CDT Testosterone deficiency documented in this encounter Results * POCT URINALYSIS DIPSTICK (MANUAL) (11/30/2022 3:32 PM CDT) Leukocyte Esterase UA Negative cell/hpf [facility] Nitrite UA Negative mg/dL [facility] Urobilinogen UA Normal EU/dL [facility] U [facility] Protein UA Trace mg/dL [facility] pH UA 7 pH [facility] Blood UA Negative Negative, Trace, Small, Moderate mg/dL [facility] Specific [place] UA 1.005 [facility] Ketones UA Negative mg/dL [facility] Bilirubin UA Negative Negative, Small mg/dL UROLOGY [facility] Glucose UA Negative mg/dL [facility] Color Fluid Yellow FH UROLO GY [facility] Clarity Fluid Clear Clear URO LOGY [facility] Urine 11/30/2022 3:32 PM CDT Hi Deluna MD POINT OF CARE TEST ORDERABLES UROLOGY [facility] [address] documented in this encounter Visit Diagnoses Diagnosis Testosterone deficiency- Primary Other testicular hypofunction documented in this encounter Care Teams Customer Insight Analyst Relationship Specialty Start Date End Date Niya Mcknight PA [address] [place] [address] PCP - General Family Medicine 03/11/22 06/01/23 documented as of this encounter
--- OUTSIDE RECORDS SUMMARY | 2024-08-23 12:06 | XMS_ITS | Encounter Summary ---
Author Organization [facility] Address [address] [place] [address] Care Team Providers Care Cut Off Saw Grader Name Role Phone Niya Mcknight Primary Care Provider +1- [phone] Reason for Visit * Reason Onset Date Comments Medication Refill 01/11/2023 Encounter Details Date Type Department Care Team (Late st Contact Info) Description 01/11/2023 Telephone [facility] [address] [place] [address] Hi Deluna MD [address] [place] [address] Medication Refill Social History Tobacco Use Types Packs/Day Years Used Date Smoking Tobacco: Former Cigarettes Q uit: 01/22/2015 Smokeless Tobacco: Former Alcohol Use Standard Drinks/Week Comments Not Currently [...] encounter Miscellaneous Notes * Telephone Encounter - Mague Kirk LPN - 01/11/2023 3:17 PM CDT Patient called office back and decided he would go ahead and get his labs done and follow up with Dr. Deluna. Patient states he thought that we were only here once a month. I informed him that its every other Wednesday-Wednesday. * Telephone Encounter - Mague Kirk LPN - 01/11/2023 1:38 PM CDT Progress note from Dr. Deluna -Per patient call, he wants us to renew testosterone as his PCP will no longer prescribe it. In order for us to prescribe for his TRT, he will need some additional labs in addition to the labs he had drawn in October and get scheduled for another in-office visit to discuss risks and benefits in detail and perform a МАРИЯ. When I reached out to Patient to give him the information and let him know he would need to get labs done and we would need to see him before prescribing it. Patient became upset stating he will justgo back to his Urologist in [place] and not have to deal with this crap. Told me to have a nice day bye. documented in this encounter Plan of Treatment Not on file documented as of this encounter Visit Diagnoses Not on filedocumented in this encounter Care Teams Cut Off Saw Grader Relationship Specialty Start Date End Date Niya Mcknight PA [address] [place] [address] PCP - General Family Medicine 03/11/22 06/01/23 documented as of this encounter
--- OUTSIDE RECORDS SUMMARY | 2024-08-23 12:06 | XMS_ITS | Encounter Summary ---
Author Organization [facility] Address [address] [place] [address] Care Team Providers Care Earrings Fabricator Name Role Phone Niya Mcknight Primary Care Provider +1- [phone] Reason for Visit * Reason Onset Date Comments Other 10/08/2022 Encounter Details Date Type Department Care Team (Late st Contact Info) Description 10/08/2022 Telephone [facility] Practice [address] [place] [address] Niya Mcknight PA [address] [place] [address] Other Social History Tobacco Use Types Packs/Day [...] suspected to have Coronavirus/COVID-19? No / Unsure 09/21/2022 2:28 PM SENIOR STAFF PSYCHOLOGIST documented as of this encounter Miscellaneous Notes * Telephone Encounter - Jesi Koo LPN - 10/08/2022 3:40 PM CST Patient notified and voiced understanding. OR STAFF PSYCHOLOGIST * Telephone Encounter - Marycarmen Edouard LPN - 10/08/2022 1:30 PM CST Patient called and the psychiatrist Dr. Amador Tanner suggested he has a T3 and T4 with his labs forhis thyroid testing . Please let him know. OR STAFF PSYCHOLOGIST documented in this encounter Plan of Treatment Not on file documented as of this encounter Results * T3 FREE (10/17/2022 8:58 AM SENIOR STAFF PSYCHOLOGIST) T3 Free 3.1 2.5 - 3.9 PG/ML [facility] [employer] Blood 10/17/2022 8:58 AM SENIOR STAFF PSYCHOLOGIST 10/17/2022 9:03 AM SENIOR STAFF PSYCHOLOGIST Niya WORKMAN CHEMISTRY ORDERABL ES Performing Organization Address [facility] Co de Phone Number [facility] [employer] [address] [place] [address] * T4 FREE (10/17/2022 8:58 AM SENIOR STAFF PSYCHOLOGIST) Free T4 0.98 0.61 - 1.12 NG/DL [facility] [employer] Comment: 0.52-11.0 FEMALES, 1ST TRIMESTER 0.45-0.99 FEMALES, 2ND TRIMESTER 0.48-0.95 FEMALES, 3RD TRIMESTER Blood 10/17/2022 8:58 AM SENIOR STAFF PSYCHOLOGIST 10/17/2022 9:03 AM SENIOR STAFF PSYCHOLOGIST Niya WORKMAN CHEMISTRY ORDERABL ES Performing Organization Address City/[facility] Co de Phone Number [facility] [employer] [address] [place] [address] documented in this encounter Visit Diagnoses Diagnosis IGGY (generalized anxiety disorder)- Primary Generalized anxiety disorder documented in this encounter Care Teams Earrings Fabricator Relationship Specialty Start Date End Date Niya Mcknight PA [address] [place] [address] PCP - General Family Medicine 03/11/22 06/01/23 documented as of this encounter
--- OUTSIDE RECORDS SUMMARY | 2024-08-23 12:06 | XMS_ITS | Encounter Summary ---
Author Organization [facility] Address [address] [place] [address] Care Team Providers Care Rotary Pump Operator Name Role Phone Niya Mcknight Primary Care Provider +1- [phone] Reason for Visit * Reason Comments Medication Refill Encounter Details Date Type Department Care Team (Late st Contact Info) Description 05/16/2023 Refill [facility] Family Practice [address] [place] [address] Niya Mcknight PA [address] [place] [address] Medication Refill Social History Tobacco Use Types [...] on filedocumented in this encounter Care Teams Rotary Pump Operator Relationship Specialty Start Date End Date Niya Mcknight PA [address] [place] [address] PCP - General Family Medicine 03/11/22 06/01/23 documented as of this encounter
--- OUTSIDE RECORDS SUMMARY | 2024-08-23 12:06 | XMS_ITS | Encounter Summary ---
Author Organization [facility] Address [address] [place] [address] Care Team Providers Care Fleet Manager Name Role Phone Niya Mcknight Primary Care Provider +1- [phone] Reason for Visit * Reason Comments Medication Refill Encounter Details Date Type Department Care Team (Late st Contact Info) Description 03/10/2023 Refill [facility] Family Practice [address] [place] [address] Niya Mcknight PA [address] [place] [address] Medication Refill Social History Tobacco [...] suspected to have Coronavirus/COVID-19? No / Unsure 03/10/2023 2:24 PM CDT documented as of this encounter Plan of Treatment Not on file documented as of this encounter Visit Diagnoses Not on filedocumented in this encounter Care Teams Fleet Manager Relationship Specialty Start Date End Date Niya Mcknight PA [address] [place] [address] PCP - General Family Medicine 03/11/22 06/01/23 documented as of this encounter
--- OUTSIDE RECORDS SUMMARY | 2024-08-23 12:06 | XMS_ITS | Encounter Summary ---
Author Organization [facility] Address [address] [place] [address] Care Team Providers Care Automotive Parts Salesperson Name Role Phone Niya Mcknight Primary Care Provider +1- [phone] Reason for Visit * Reason Onset Date Comments Other 12/28/2022 Billing question s Encounter Details Date Type Department Care Team (Late st Contact Info) Description 12/28/2022 Telephone [facility] Practice [address] [place] [address] Niya Mcknight PA [address] [place] [address] Other (Billing questions ) Social History Tobacco Use Types Packs/Day Years [...] PM CDT documented as of this encounter Miscellaneous Notes * Telephone Encounter - Sudha Espitia RN,BSN - 12/28/2022 5:04 PM CDT Patient contacted this nurse questioning whether or not his insurance would cover nurse only visitsfor testosterone injections. Patient is having trouble giving his own injections. This nurse informed patient to contact his insurance company and find out, and this nurse would try to contact [facility] billing department tomorrow to find out. Informed patient since it was after 5pm, billing department would be closed. Patient verbalized understanding and will be in touch with this nurse. documented in this encounter Plan of Treatment Not on file documented as of this encounter Visit Diagnoses Not on filedocumented in this encounter Care Teams Automotive Parts Salesperson Relationship Specialty Start Date End Date Niya Mcknight PA [address] [place] [address] PCP - General Family Medicine 03/11/22 06/01/23 documented as of this encounter
--- OUTSIDE RECORDS SUMMARY | 2024-08-23 12:06 | XMS_ITS | Encounter Summary ---
Author Organization [facility] Address [address] [place] [address] Care Team Providers Care Barrel Rifler Broach Name Role Phone Niya Mcknight Primary Care Provider +1- [phone] Reason for Visit * Reason Comments Medication Refill Encounter Details Date Type Department Care Team ([facility] st Contact Info) Description 03/16/2022 Refill [facility] Family Practice [address] [place] [address] Niya Mcknight PA [address] [place] [address] Medication Refill Social History Tobacco [...] suspected to have Coronavirus/COVID-19? No / Unsure 03/11/2022 1:50 PM CDT documented as of this encounter Plan of Treatment Not on file documented as of this encounter Visit Diagnoses Diagnosis IGGY (generalized anxiety disorder) Generalized anxiety disorder documented in this encounter Care Teams Barrel Rifler Broach Relationship Specialty Start Date End Date Niya Mcknight PA [address] [place] [address] PCP - General Family Medicine 03/11/22 06/01/23 documented as of this encounter
--- OUTSIDE RECORDS SUMMARY | 2024-08-23 12:06 | XMS_ITS | Encounter Summary ---
Author Organization [facility] Address [address] [place] [address] Care Team Providers Care Engineer Conductor Name Role Phone Niya Mcknight Primary Care Provider +1- [phone] Encounter Details Date Type Department Care Team (Late st Contact Info) Description 01/16/2023 10:00 AM CDT Lab/X-Ray Only [facility] [address] [place] [address] Niya Mcknight PA [address] [place] [address] Male hypogonadism; Hypokalemia; Elevated hemoglobin (HCC) Social History Tobacco Use Types Packs/Day Years [...] suspected to have Coronavirus/COVID-19? No / Unsure 01/18/2023 1:55 PM CDT documented as of this encounter Plan of Treatment Not on file documented as of this encounter Procedures Procedure Name Priority Date/Time Associated Diagnosis Comments PSA TOTAL, SCREEN Routine 01/16/2023 9:5 8 AM CDT Male hypogonadism Hypokalemia Elevated hemoglobin (HCC) TOT TESTOSTERONE,MALE Routine 01/16/2023 9:58 AM CDT Male hypogonadism Hypokalemia Elevated hemoglobin (HCC) TESTOSTERONE FREE (MALE) Routine 01/16/2023 9:58 AM CDT Male hypogonadism Hypokalemia Elevated hemoglobin (HCC) CBC W AUTO DIFF Routine 01/16/2023 9:58 AM CDT Male hypogonadism Hypokalemia Elevated hemoglobin (HCC) BASIC METABOLIC PANEL (CHEM8) Routine 01/16/2023 9:58 AM CDT Hypokalemia Male hypogonadism Elevated hemoglobin (HCC) documented in this encounter Results * TOT TESTOSTERONE,MALE (01/16/2023 9:58 AM CDT) Tot Testosterone ,Male 176 THE ACCESS TESTOSTERONE ASSAY IS PARAMAGNETIC PARTICLE, CHEMILUMINESCENT IMMUNOASSAY FOR THE QUANTITATIVE DETERMINATION OF TOTAL TESTOSTERONE LEVELS IN HUMAN SERUM USING THE [employer] IMMUNOASSAY SYSTEMS. THE ACCESS TESTOSTERONE ASSAY IS A COMPETITIVE BINDING IMMUNOENZYMATIC ASSAY. ??TESTOSTERONE TEST RESULTS FROM DIFFERENT MANUFACTURERS WILL VARY. RESULTS SHOULD BE INTERPRETED IN LIGHT OF TOTAL CLINICAL PRESENTATION OF THE PATIENT, INCLUDING SYMPTOMS, CLINICAL HISTORY, DATA FROM ADDITIONAL TESTS AND OTHER APPROPRIATE INFORMATION. 175.00 - 781.00 NG/DL [facility] St[facility] 01/16/2023 9:58 AM CDT 01/16/2023 11:20 AM CDT Hi Deluna MD CHEMISTRY ORD ERABLES [facility] - [facility] [address] [place] [address] * (ABNORMAL) TESTOSTERONE FREE (MALE) (01/16/2023 9:58 AM CDT) Testosterone Free 35(L) 47 - 244 pg/mL [employer] Comment: (NOTE) INTERPRETIVE INFORMATION: ??Testosterone, Free Calculation Free testosterone concentration is calculated using total testosterone (measured by immunoassay) and the binding constant of testosterone and sex hormone-binding globulin (SHBG). Testosterone immunoassays are both imprecise and inaccurate at low testosterone concentrations, such as those found in children and cisgender females. For these individuals, testing by mass spectrometry is recommended; refer to Testosterone, Free (Adult Females, Children, or Individuals on Testosterone-Suppressing Hormone Therapy) ([facility] test code [id number]). For individuals on testosterone hormone therapy, refer to cisgender male reference intervals. No reference intervals have been established for males younger than 14 years or for cisgender females. For a complete set of all established reference intervals, refer to [employer]Rekoo/Tests/Pub/[id number]. Performed By: [facility] [address] [place] [address] Insulator Tester: Jeb Machuca MD, PhD Blood 01/16/2023 9:58 AM CDT 01/16/2023 11:17 AM CDT Hi Deluna MD LAB SEND OUT ORDERABLES [facility] [address] [place] [address] * (ABNORMAL) BASIC METABOLIC PANEL (CHEM8) (01/16/2023 9:58 AM CDT) [facility] Glucose 107 74 - 109 MG/DL [facility] Blood Urea Nitrogen 17 7 - 25 MG/DL [facility] Creatinine 1.3 0.6 - 1.3 MG/DL [facility] Sodium 137 136 - 145 MMOL/L [facility] Potassium 4.1 3.5 - 5.1 MMOL/L [facility] Chloride 102 98 - 107 MMOL/L [facility] Co2 30 21 - 31 MMOL/L [facility] Calcium 9.5 8.6 - 10.3 MG/DL [facility] GFR Comment IF PATIENT IS , MULTIPLY RESULT BY 1.16 [facility] Est GFR 64(L) >90 ML/MIN/1. 73sq.m [facility] Blood 01/16/2023 9:58 AM CDT 01/16/2023 10:03 AM CDT Niya WORKMAN CHEMISTRY ORDERABL ES Performing Organization Address City/State/[facility] Co de Phone Number [facility] [address] [place] [address] * (ABNORMAL) CBC W AUTO DIFF (01/16/2023 9:58 AM CDT) White Blood Cell Count 5.5 4.8 - 9.6 THOUS/uL [facility] Red Blood Cell Count 5.06 4.33 - 5.59 MIL/uL [facility] Hemoglobin 16.1 13.1 - 16.8 GM/DL [facility] Hematocrit 47.0 38.8 - 49.0 % [facility] Mean Corpuscular Volume 92.9 82.7 - 94.4 [facility] Mean Corpuscular Hemoglobin 31.8 27.7 - 32.6 PG [facility] Mean Corpuscular Hemoglobin Conc 34.3 32.4 - 35.7 G/DL [facility] Rdwcv 12.4 11.6 - 13.9 % [facility] Rdwsd 42.5 36.0 - 46.1 [facility] Platelet Count 291 154 - 364 THOUS/uL [facility] Mean Platelet Volume 9.3 8.7 - 11.7 [facility] Differential Type AUTO FE [facility] Neutrophils 69.1(H) 34.0 - 67.9 % [facility] Lymphs 19.1 19.1 - 41.2 % [facility] Monocytes 9.7 6.1 - 12.3 % [facility] Eos 0.7(L) 0.9 - 7.6 % [facility] Basos 0.7 0.2 - 1.5 % [facility] Neutrophils Absolute Count 3.8 2.7 - 5.8 THOUS/uL [facility] Lymphocytes Absolute Count 1.1 1.1 - 3.3 THOUS/uL [facility] Monocytes Absolute Count 0.5 0.4 - 0.9 THOUS/uL [facility] Eosinophils Absolute Count 0.0(L) 0.1 - 0.6 THOUS/uL [facility] Basophils Absolute Count 0.0 0.0 - 0.1 THOUS/uL [facility] Imm Gran 0.7 0.2 - 0.9 % [facility] Abs Imm Gran 0.04 0.0 - 0.1 THOUS/uL [facility] Blood 01/16/2023 9:58 AM CDT 01/16/2023 10:03 AM CDT Hi Deluna MD HEMATOLOGY OR DERABLES Performing Organization Address City/[facility] Co de Phone Number [facility] - [address] * PSA TOTAL, SCREEN (01/16/2023 9:58 AM CDT) Prostate Specific Antigen Total 0.61 0 - 4.00 NG/ML [facility] PSA Comment SEE NOTES [facility] Comment: The Access [employer] PSA assay is a paramagnetic particle, chemiluminescent immunoassay for the quantitative determination of prostate specific antigen (PSA) levels in human serum using the Access Immunoassay Systems. Blood 01/16/2023 9:58 AM CDT 01/16/2023 10:03 AM CDT Hi Deluna MD CHEMISTRY ORD ERABLES Performing Organization Address [facility] Co de Phone Number [address] documented in this encounter Visit Diagnoses Diagnosis Male hypogonadism Other testicular hypofunction Hypokalemia Hypopotassemia Elevated hemoglobin (HCC) Other hemoglobinopathies documented in this encounter Care Teams Engineer Conductor Relationship Specialty Start Date End Date Niya Mcknight PA [address] [place] [address] PCP - General Family Medicine 03/11/22 06/01/23 documented as of this encounter
--- OUTSIDE RECORDS SUMMARY | 2024-08-23 12:06 | XMS_ITS | Encounter Summary ---
Author Organization [facility] Address [address] [place] [address] Care Team Providers Care Multimedia Project Manager Name Role Phone Niya Mcknight Primary Care Provider +1- [phone] Reason for Visit * Reason Comments Foot Pain Encounter Details Date Type Department Care Team (Late st Contact Info) Description 09/08/2022 5:27 PM PORCELAIN ENAMEL REPAIRER - 09/08/2022 6:22 PM [facility] Emergency Department [address] [place] [address] John Polk MD [address] [address] Puncture wound of left foot, initial encounter (Primary Dx) Discharge Disposition: Home [...] Coronavirus/COVID-19? No / Unsure 09/21/2022 2:28 PM PORCELAIN ENAMEL REPAIRER documented as of this encounter Last Filed Vital Signs Vital Sign Reading Time Taken Comments Blood Pressure 154/90 09/08/2022 6:19 PM PORCELAIN ENAMEL REPAIRER Pulse 103 09/08/2022 6:19 PM PORCELAIN ENAMEL REPAIRER Temperature 37.2 ??C (98.9 ??F) 09/08/2022 5:30 PM CS T Respiratory Rate 20 09/08/2022 6:19 PM PORCELAIN ENAMEL REPAIRER Oxygen Saturation 98% 09/08/2022 6:19 PM PORCELAIN ENAMEL REPAIRER Inhaled Oxygen Concentration - - Weight 79.8 kg (176 lb) 09/08/2022 5:30 PM PORCELAIN ENAMEL REPAIRER Height 177.8 cm (5' 10 ) 09/08/2022 5:30 PM PORCELAIN ENAMEL REPAIRER Body Mass Index 25.25 09/08/2022 5:30 PM PORCELAIN ENAMEL REPAIRER documented in this encounter Discharge Instructions * Discharge Instructions* John Polk MD - 09/08/2022 6:12 PM PORCELAIN ENAMEL REPAIRER OTC med as helpful, recheck as needed. ELAIN ENAMEL REPAIRER * Attachments The following attachments cannot be sent through Care Everywhere. * Puncture Wound (AfterCare(R) Instructions(ER/ED)) (Monegasque) documented in this encounter Medications at Time of Discharge Medication Sig Dispensed Refills Start Date End Date BD HYPODERMIC NEEDLE 18G X 1 MISC USE TO DRAW UP TESTOSTERONE 11/19/2020 Cholecalciferol (VITAMIN D PO) Take 5,000 Units by mouth daily omeprazole (PRILOSEC) 40 MG capsule Take 1 capsule (40 mg) by mouth as needed ALPRAZolam (XANAX) 0.5 MG tabletIndications:IGGY (generalized anxiety disorder) TAKE ONE TABLET BY MOUTH THREE TIMES DAILY NEEDED 90 tablet 2 03/19/2022 09/21/2022 cephALEXin (KEFLEX) 500 MG capsule Take 1 capsule (500 mg) by mouth 3 times daily for 7 days antibiotic 21 capsule 09/08/2022 09/15/2022 clomiPHENE (CLOMID) 50 MG tablet TAKE 1 TABLET BY MOUTH 3 TIMES WEEKLY 36 tablet 01/22/2022 01/25/2023 tadalafil (CIALIS) 20 MG tablet Take 1 tablet (20 mg) by mouth as needed for Erectile Dysfunction 90 tablet 09/18/2021 09/21/2022 testosterone cypionate (DEPO-TESTOSTERONE) 200 MG/ML injectionIndications: Male hypogonadism Inject 1 ml in large muscle every 12 days 10 mL 1 09/18/2021 01/25/2023 documented as of this encounter ED Notes * John Polk MD - 09/08/2022 6:22 PM CST Images from the original note were not included. [facility] Emergency Room General Encounter CHIEF COMPLAINT Chief Complaint Patient presents with ??? Foot Pain HPI John Veliz is a 52 y.o. male who presents with left foot pain, stepped on a staple a few days ago, small cut on left foot, wants tetanus booster and abx. REVIEW OF SYSTEMS CONSTITUTIONAL: No complaints of [...] MEDICAL HISTORY Past Medical History: Diagnosis Date ??? Anxiety ??? Depression (disease) ??? Low testosterone in male FAMILY HISTORY Family History Problem Relation Age of Onset ??? Depression Mother ??? Depression Father ??? Alcohol Abuse Paternal Uncle SOCIAL HISTORY Social History Socioeconomic History ??? Marital status: Single Tobacco Use ??? Smoking status: Former Packs/day: 1.00 Types: Cigarettes Quit date: 01/22/2015 Years since quittin.6 ??? Smokeless tobacco: Former Vaping Use ??? Vaping Use: Never used Substance and Sexual Activity ??? Alcohol use: Not Currently Comment: occasional ??? Drug use: No SURGICAL HISTORY Past Surgical History: Procedure Laterality Date ??? SHOULDER SURGERY 2001 left CURRENT MEDICATIONS No current facility-administered medications for this encounter. Current Outpatient Medications: ??? ALPRAZolam (XANAX) 0.5 MG tablet, TAKE ONE TABLET BY MOUTH THREE TIMES DAILY NEEDED, Disp: 90 tablet, Rfl: 2 ??? BD HYPODERMIC NEEDLE 18G X 1 MISC, USE TO DRAW UP TESTOSTERONE, Disp: , Rfl: ??? cephALEXin (KEFLEX) 500 MG capsule, Take 1 capsule (500 mg) by mouth 3 times daily for 7 days antibiotic, Disp: 21 capsule, Rfl: 0 ??? Cholecalciferol (VITAMIN D PO), Take 5,000 Units by mouth daily, Disp: , Rfl: ??? clomiPHENE (CLOMID) 50 MG tablet, TAKE 1 TABLET BY MOUTH 3 TIMES WEEKLY, Disp: 36 tablet, Rfl: 0 ??? omeprazole (PRILOSEC) 40 MG capsule, Take 40 mg by mouth as needed, Disp: , Rfl: ??? testosterone cypionate (DEPO-TESTOSTERONE) 200 MG/ML injection, Inject 1 ml in large muscle every 12 days, Disp: 10 mL, Rfl: 1 ALLERGIES Allergies Allergen Reactions ??? Codeine Itching Pt states he feels hot, itchy, and he vomits. PHYSICAL EXAM VITAL SIGNS: ED Triage Vitals [09/08/22 1730] Temp Temp src Pulse Resp BP SpO2 98.9 ??F (37.2 ??C) Tympanic (!) 114 18 (!) 177/93 97 % -- Visit Vitals BP (!) 154/90 Pulse (!) 103 Temp 98.9 ??F (37.2 ??C) (Tympanic) Resp 20 Ht 5' 10 Wt 176 lb (79.8 kg) SpO2 98% BMI 25.25 kg/m?? Smoking Status Former BSA 1.99 m?? Constitutional: Well developed. Well nourished. Alert. [...] or pulsatile masses. Extremities: Intact distal pulses. No edema. No tenderness. No deformities noted. Tiny PW left plantar foot noted, no FB and no infection. Neurologic: Alert & appropriate. Normal motor function. Normal sensory function. No focal deficits noted. Cranial nerves intact. Speech is clear. No orders to display COURSE & MEDICAL DECISION MAKING No results found for this or any previous visit (from the past 24 hour(s)). Old charts were reviewed per [facility] EMR. Pertinent details are summarized above. All laboratory, radiologic, and EKG studies that were performed in the Emergency Department were a necessary part of the evaluation needed to exclude unstable or emergent medical conditions. Minor PW left foot, no infection, Boostrix, Rx abx at pat request. Patient was hemodynamically and neurologically stable in the ED. Pertinent studies were reviewed as above. The patient received: Medications Tdap (BOOSTRIX) injection 0.5 mL (0.5 mL Intramuscular Given 09/08/22 1758) I have reviewed the patient???s prescription history via a prescription monitoring program. This information is consistent with my knowledge of the patient???s controlled substance use history. FINAL IMPRESSION ICD-10-CM ICD-9-CM 1. Puncture wound of left foot, initial encounter S91.332A 892.0 Final Disposition Discharge MD John Medellin MD 09/09/22 0711 ELAIN ENAMEL REPAIRER * Monse Hardy RN - 09/08/2022 6:20 PM CST Discharge instructions and Rx reviewed with patient. Patient to pick of Rx in the morning. Patient voices good understanding. Patient exits ED ambulatory. ELAIN ENAMEL REPAIRER * Monse Hardy RN - 09/08/2022 5:45 PM CST at bedside for exam. ELAIN ENAMEL REPAIRER documented in this encounter Miscellaneous Notes * Triage Assessment - Monse Hardy RN - 09/08/2022 5:36 PM CST Patient presents to ED with complaints of left foot pain. Patient gives history of stepping on a carpet nail on Wednesday. Patient has small puncture wound noted to mid lateral aspect left foot. No swelling, redness or drainage noted. Patient wanted to make sure it isn't infected. Also requests to have his Tetanus updated. Patient is alert and oriented x 4. Skin warm and dry. Color good. ELAIN ENAMEL REPAIRER documented in this encounter Plan of Treatment Not on file documented as of this encounter Visit Diagnoses Diagnosis Puncture wound of left foot, initial encounter- Primary documented in this encounter Administered Medications Inactive Administered Medications - up to 3 most recent administrations Medication Order MAR Action Action Date Dose Rate Site Tdap (BOOSTRIX) injection 0.5 mL 0.5 mL, Intramuscular, IMMUNIZATION 0900, 1 dose, On Wed09/09/22 at 0900, STAT Given 09/08/2022 5:58 PM PORCELAIN ENAMEL REPAIRER 0.5 mL Left Deltoid documented in this encounter Active and Recently Administered Medications Times are shown in PORCELAIN ENAMEL REPAIRER. Scheduled Medication Order 09/06/2022 09/07/2022 09/08/2022 Tdap (BOOSTRIX) injection 0.5 mL (COMPLETED) 0.5 mL, Intramuscular, IMMUNIZATION 0900, 1 dose, On Wed09/09/22 at 0900, STAT 1758 (Given - Provid er: Monse Hardy RN) documented in this encounter Care Teams Multimedia Project Manager Relationship Specialty [place] [address] [place] [id number] PCP - General Family Medicine 03/11/22 06/01/23 documented as of this encounter
--- OUTSIDE RECORDS SUMMARY | 2024-08-23 12:06 | XMS_ITS | Encounter Summary ---
Author Organization [facility] Address [address] [place] [address] Care Team Providers Care Project Mgr Name Role Phone Niya Mcknight Primary Care Provider +1- [phone] Reason for Visit * Reason Comments Medication Refill Encounter Details Date Type Department Care Team ([facility] st Contact Info) Description 10/21/2022 Refill [facility] [address] [place] [address] Niya Mcknight PA [address] [place] [address] Medication Refill Social History Tobacco [...] suspected to have Coronavirus/COVID-19? No / Unsure 10/17/2022 8:55 AM STOPE MINER documented as of this encounter Plan of Treatment Not on file documented as of this encounter Visit Diagnoses Diagnosis IGGY (generalized anxiety disorder) Generalized anxiety disorder documented in this encounter Care Teams Project Mgr Relationship Specialty Start Date End Date Niya Mcknight PA [address] [place] [address] PCP - General Family Medicine 03/11/22 06/01/23 documented as of this encounter
--- OUTSIDE RECORDS SUMMARY | 2024-08-23 12:06 | XMS_ITS | Encounter Summary ---
Author Organization [facility] Address [address] [place] [address] Care Team Providers Care Personal Injury Specialist Name Role Phone Niya Mcknight Primary Care Provider +1- [phone] Reason for Visit * Reason Comments Medication Refill Encounter Details Date Type Department Care Team (Late st Contact Info) Description 08/22/2022 Refill [facility] [address] [place] [address] [place] [address] [place] [id number] Medication Refill Social History Tobacco Use Types [...] disorder documented in this encounter Care Teams Personal Injury Specialist Relationship Specialty Start Date End Date Niya Mcknight PA [address] [place] [address], [place] [address] PCP - General Family Medicine 03/11/22 06/01/23 documented as of this encounter
--- OUTSIDE RECORDS SUMMARY | 2024-08-23 12:06 | XMS_ITS | Encounter Summary ---
Author Organization [facility] Address [address] [place] [address] Care Team Providers Care Assembly Machine Tender Name Role Phone Niya Mcknight Primary Care Provider +1- [phone] Reason for Visit * Reason Comments Medication Refill Encounter Details Date Type Department Care Team (Late st Contact Info) Description 01/02/[address] [place] [id number] Niya Mcknight PA [address] [place] [address] Medication Refill Social History Tobacco [...] Diagnoses Diagnosis Male hypogonadism Other testicular hypofunction Long-term current use of testosterone replacement therapy documented in this encounter Care Teams Assembly Machine Tender Relationship Specialty Start Date End Date Niya Mcknight PA [address] [place] [address] PCP - General Family Medicine 03/11/22 06/01/23 documented as of this encounter
--- OUTSIDE RECORDS SUMMARY | 2024-08-23 12:06 | XMS_ITS | Encounter Summary ---
Author Organization [facility] Address [address] [place] [address] Care Team Providers Care Biological Technician Name Role Phone Niya Mcknight Primary Care Provider [phone] Reason for Visit * Reason Comments Follow-up 3 month f/u. Request ing refill on alprazolam. Would like to pick it up today because he is leaving to work in the [place] area. Encounter Details Date Type Department Care Team (Late st Contact Info) Description 01/18/2023 2:00 PM CDT [facility] [address] [place] [address] [place] [address] [place] [phone] Male hypogonadism (Primary Dx); IGGY (generalized anxiety disorder) Social History Tobacco [...] Sign Reading Time Taken Comments Blood Pressure 140/88 01/18/2023 2:27 PM CDT Pulse 67 01/18/2023 2:27 PM CDT Temperature 36.7 ??C (98 ??F) 01/18/2023 2:27 PM CDT Respiratory Rate - - Oxygen Saturation 97% 01/18/2023 2:27 PM CDT Inhaled Oxygen Concentration - - Weight 84.4 kg (186 lb) 01/18/2023 2:27 PM CDT Height 177.8 cm (5' 10 ) 01/18/2023 2:27 PM CDT Body Mass Index 26.69 01/18/2023 2:27 PM CDT documented in this encounter Patient Instructions * Patient Instructions* Mandy Lyles DO - 01/18/2023 2:00 PM CDT Do not drink alcohol while on your alprazolam. It can increase your risk of respiratory depression and . Your hemoglobin was normal at your most recent lab draw. documented in this encounter Progress Notes * Mandy Lyles DO - 01/18/2023 2:00 PM CDT Images from the original note were not included. OFFICE NOTE Subjective: 52 y.o. year old male presents to clinic with complaint of Chief Complaint Patient presents with ??? Follow-up 3 month f/u. Requesting refill on alprazolam. Would like to pick it up today because he is leaving to work in the [place] area. IGGY (generalized anxiety disorder) - Mandy Lyles DO 01/27/23 8186 Edited Patient has a history of anxiety. Patient doing well with current medication regimen. Is doing wellwith counseling sees Dr. Tanner. Denies any adverse [...] and . Patient voices understanding. -Continue same. CORRECTIONAL SERGEANT reviewed no discrepancies. Refills Xanax 1 mg PO TID # 90 with 1 refill. - Follow up with Niya Mcknight PA-C in 2-3 months Male hypogonadism - Mandy Lyles, 01/27/23 4890 Written Patient is being followed by Dr. Deluna for hypogonadism. There is some confusion as to why Niya Mcknight PA-C sent him to a [facility] for testosterone supplementation. Discussed with the patient that there are risks associated with testosterone supplementation including infertility,rising prostate-specific antigen levels, worsening lower urinary tract symptoms, polycythemia, and increased risk of venous thromboembolism. Patient voiced understanding. Continue to follow with Dr. Deluna. Current Outpatient Medications on File Prior to Visit Medication Sig Dispense Refill ??? ALPRAZolam (XANAX) 0.5 MG tablet Take 1 tablet (0.5 mg) by mouth 3 times daily as needed 90 tablet 0 ??? BD HYPODERMIC NEEDLE 18G X 1 [...] by mouth daily 90 tablet 0 ??? testosterone cypionate (DEPO-TESTOSTERONE) 200 MG/ML injection Inject 1 ml in large muscle every 12 days 10 mL 1 No current facility-administered medications on file prior to visit. Past Medical History: Diagnosis Date ??? Anxiety ??? Depression (disease) ??? Low testosterone in male Past Surgical History: Procedure Laterality Date ??? SHOULDER SURGERY 2002 left Social History Tobacco Use Smoking Status Former ??? Packs/day: 1.00 ??? Types: Cigarettes ??? Quit date: 01/22/2015 ??? Years since quittin.0 Smokeless Tobacco Former Tobacco Comments Exposed to second hand smoke Vaping Use ??? Vaping Use: Never used Family History Problem Relation Age of Onset ??? Depression Mother ??? Depression Father ??? Alcohol Abuse Paternal Uncle Objective: Visit Vitals BP 140/88 Pulse 67 Temp 98 ??F (36.7 ??C) Ht 5' 10 Wt 186 lb (84.4 kg) SpO2 97% BMI 26.69 kg/m?? Smoking Status Former BSA 2.04 m?? Physical Exam Constitutional: Appearance: Normal appearance. He is not ill-appearing. HENT: Head: Normocephalic. Nose: Nose normal. Mouth/Throat: Mouth: Mucous membranes are moist. Pharynx: No posterior oropharyngeal erythema. Eyes: General: No scleral icterus. Neck: Vascular: No carotid bruit. Cardiovascular: Rate and Rhythm: Normal rate and regular rhythm. Heart sounds: Normal heart sounds. Pulmonary: Effort: Pulmonary effort is normal. Breath sounds: Normal breath sounds. Abdominal: General: Bowel sounds are normal. Palpations: Abdomen is soft. Tenderness: There is no abdominal tenderness. Musculoskeletal: Cervical back: Neck supple. Right lower leg: No edema. Left lower leg: No edema. Lymphadenopathy: Cervical: No cervical adenopathy. Skin: General: Skin is warm and dry. Capillary Refill: Capillary refill takes less than 2 seconds. Findings: No rash. Neurological: Mental Status: He is alert and oriented to person, place, and time. Psychiatric: Comments: Appears depressed Data: Recent Results (from the past 672 hour(s)) PSA TOTAL, SCREEN Collection Time: 01/16/23 9:58 AM Result Value Ref Range Prostate Specific Antigen Total 0.61 0 - 4.00 NG/ML PSA Comment SEE NOTES CBC W AUTO DIFF Collection Time: 01/16/23 9:58 AM Result Value Ref Range White Blood Cell Count 5.5 4.8 - 9.6 THOUS/uL Red Blood Cell Count 5.06 4.33 - 5.59 MIL/uL Hemoglobin 16.1 13.1 - 16.8 GM/DL Hematocrit 47.0 38.8 - 49.0 % Mean Corpuscular Volume 92.9 82.7 - 94.4 FL Mean Corpuscular Hemoglobin 31.8 27.7 - 32.6 PG Mean Corpuscular Hemoglobin Conc 34.3 32.4 - 35.7 G/DL Rdwcv 12.4 11.6 - 13.9 % Rdwsd 42.5 36.0 - 46.1 FL Platelet Count 291 154 - 364 THOUS/uL Mean Platelet Volume 9.3 8.7 - 11.7 FL Differential Type AUTO Neutrophils 69.1 (H) 34.0 - 67.9 % Lymphs 19.1 19.1 - 41.2 % Monocytes 9.7 6.1 - 12.3 % Eos 0.7 (L) 0.9 - 7.6 % Basos 0.7 0.2 - 1.5 % Neutrophils Absolute Count 3.8 2.7 - 5.8 THOUS/uL Lymphocytes Absolute Count 1.1 1.1 - 3.3 THOUS/uL Monocytes Absolute Count 0.5 0.4 - 0.9 THOUS/uL Eosinophils Absolute Count 0.0 (L) 0.1 - 0.6 THOUS/uL Basophils Absolute Count 0.0 0.0 - 0.1 THOUS/uL Imm Gran 0.7 0.2 - 0.9 % Abs Imm Gran 0.04 0.0 - 0.1 THOUS/uL BASIC METABOLIC PANEL (CHEM8) Collection Time: 01/16/23 9:58 AM Result Value Ref Range Glucose 107 74 - 109 MG/DL Blood Urea Nitrogen 17 7 - 25 MG/DL Creatinine 1.3 0.6 - 1.3 MG/DL Sodium 137 136 - 145 MMOL/L Potassium 4.1 3.5 - 5.1 MMOL/L Chloride 102 98 - 107 MMOL/L Co2 30 21 - 31 MMOL/L Calcium 9.5 8.6 - 10.3 MG/DL GFR Comment IF PATIENT IS , MULTIPLY RESULT BY 1.16 Est GFR 64 (L) >90 ML/MIN/1.73sq.m TESTOSTERONE FREE (MALE) Collection Time: 01/16/23 9:58 AM Result Value Ref Range Testosterone Free 35 (L) 47 - 244 pg/mL TOT TESTOSTERONE,MALE Collection Time: 01/16/23 9:58 AM Result Value Ref Range Tot Testosterone,Male 175.00 - 781.00 NG/DL 176 THE ACCESS TESTOSTERONE ASSAY IS PARAMAGNETIC PARTICLE, CHEMILUMINESCENT IMMUNOASSAY FOR THE QUANTITATIVE DETERMINATION OF TOTAL TESTOSTERONE LEVELS IN HUMAN SERUM USING THE [employer] IMMUNOASSAY SYSTEMS. THE ACCESS TESTOSTERONE ASSAY IS A COMPETITIVE BINDING IMMUNOENZYMATIC ASSAY. TESTOSTERONE TEST RESULTS FROM DIFFERENT MANUFACTURERS WILL VARY. RESULTS SHOULD BE INTERPRETED IN LIGHT OF TOTAL CLINICAL PRESENTATION OF THE PATIENT, INCLUDING SYMPTOMS, CLINICAL HISTORY, DATA FROM ADDITIONAL TESTS AND OTHER APPROPRIATE INFORMATION. POCT URINALYSIS DIPSTICK (MANUAL) Collection Time: 01/25/23 11:42 AM Result Value Ref Range Leukocyte Esterase UA neg cell/hpf Nitrite UA neg mg/dL Urobilinogen UA 0.2 EU/dL Protein UA Negative mg/dL pH UA 5.5 pH Blood UA Trace Negative, Trace, Small, Moderate mg/dL Specific [place] UA 1.020 Ketones UA Negative mg/dL Bilirubin UA neg Negative, Small mg/dL Glucose UA Negative mg/dL Color Fluid Yellow Clarity Fluid Clear Assessment/Plan: Problem List Items Addressed This Visit IGGY (generalized anxiety disorder) Patient has a history of anxiety. Patient doing well with current medication regimen. Is doing wellwith counseling sees Dr. Tanner. Denies any adverse [...] and . Patient voices understanding. -Continue same. CORRECTIONAL SERGEANT reviewed no discrepancies. Refills Xanax 1 mg PO TID # 90 with 1 refill. - Follow up with Niya Mcknight PA-C in 2-3 months Relevant Medications ALPRAZolam (XANAX) 0.5 MG tablet Male hypogonadism - Primary Patient is being followed by Dr. Deluna for hypogonadism. There is some confusion as to why Niya Mcknight PA-C sent him to [facility] for testosterone supplementation. Discussed with the patient that there are risks associated with testosterone supplementation including infertility,rising prostate-specific antigen levels, worsening lower urinary tract symptoms, polycythemia, and increased risk of venous thromboembolism. Patient voiced understanding. Continue to follow with Dr. Deluna. Visit Orders: No orders of the defined types were placed in this encounter. DISCHARGE MEDS: Outpatient Encounter Medications as of 01/18/2023 Medication Sig Dispense Refill ??? [DISCONTINUED] ALPRAZolam (XANAX) 0.5 MG tablet Take 1 tablet (0.5 mg) by mouth 3 times daily as needed 90 tablet 0 ??? ALPRAZolam (XANAX) 0.5 MG tablet Take 1 tablet (0.5 mg) by mouth 3 times daily as needed 90 tablet 1 ??? BD HYPODERMIC NEEDLE 18G X 1 MISC USE TO DRAW UP TESTOSTERONE ??? Cholecalciferol (VITAMIN D PO) Take 5,000 Units by mouth daily ??? [DISCONTINUED] clomiPHENE (CLOMID) 50 MG tablet TAKE 1 TABLET BY MOUTH 3 TIMES WEEKLY 36 tablet0 ??? omeprazole (PRILOSEC) 40 MG capsule Take 1 capsule (40 mg) by mouth as needed ??? [] potassium chloride (K-DUR) 20 MEQ tablet Take 1 tablet (20 mEq) by mouth daily 90 tablet 0 ??? [DISCONTINUED] testosterone cypionate (DEPO-TESTOSTERONE) 200 MG/ML injection Inject 1 ml in large muscle every 12 days 10 mL 1 No facility-administered encounter medications on file as of 01/18/2023. Return in about 6 weeks (around 03/01/2023) for alprazolam and testosterone. Patient Instructions Do not drink alcohol while on your alprazolam. It can increase your risk of respiratory depression and . Your hemoglobin was normal at your most recent lab draw. Mandy Lyles DO 01/27/2023 5:44 PM Disclaimer: [employer] now allows inpatient and outpatient progress notes to be visible to patients. Please note that these notes will include professional medical terminology that may be somewhat confusing without some interpretation from your medical professional team. The intent of progress notes is to communicate information between medical educator involved in your care or to serve as future reference for myself or any other provider when reviewing your medical case, as well as a reference for the patient viewing the record. Please ask a member of the medical team if you have any questions about terminology or content of the note. This occupancy specialist was created in part using [employer] voice recognition software, electronically transcribed and electronically signed. Be aware that this occupancy specialist may contain errors not detected by proofreading. documented in this encounter Miscellaneous Notes * Assessment & Plan Note - Mandy Lyles DO - 01/27/2023 5:36 PM CDT Associated Problem(s): Male hypogonadism Patient is being followed by Dr. Deluna for hypogonadism. There is some confusion as to why Niya Mcknight PA-C sent him to a [facility] for testosterone supplementation. Discussed with the patient that there are risks associated with testosterone supplementation including infertility,rising prostate-specific antigen levels, worsening lower urinary tract symptoms, polycythemia, and increased risk of venous thromboembolism. Patient voiced understanding. Continue to follow with Dr. Deluna. * Assessment & Plan Note - Mandy Lyles DO - 01/18/2023 2:38 PM CDT Associated Problem(s): IGGY (generalized anxiety disorder) Patient has a history of anxiety. Patient doing well with current medication regimen. Is doing wellwith counseling sees Dr. Tanner. Denies any adverse [...] and . Patient voices understanding. -Continue same. CORRECTIONAL SERGEANT reviewed no discrepancies. Refills Xanax 1 mg PO TID # 90 with 1 refill. - Follow up with Niya Mcknight PA-C in 2-3 months documented in this encounter Plan of Treatment Not on file documented as of this encounter Visit Diagnoses Diagnosis Male hypogonadism- Primary Other testicular hypofunction IGGY (generalized anxiety disorder) Generalized anxiety disorder documented in this encounter Care Teams Biological Technician Relationship Specialty Start Date End Date Niya Mcknight PA [address] [place] [address] PCP - General Family Medicine 03/11/22 06/01/23 documented as of this encounter
--- OUTSIDE RECORDS SUMMARY | 2024-08-23 12:06 | XMS_ITS | Encounter Summary ---
Author Organization [facility] Address [address] [place] [address] Care Team Providers Care Hot Blast Worker Name Role Phone Niya Mcknight Primary Care Provider [phone] Reason for Visit * Reason Comments Follow-up Here for follow up a nd needing medication refill on Xanax. Is wanting to see about getting a prescription for Cialis. Encounter Details Date Type Department Care Team (Latest Contact Info) Description 09/21/2022 2:30 PM HOME HEALTH ADMINISTRATOR Office Visit [facility] [address] [place] [address] Niya Mcknight PA [address] [place] [id number] IGGY (generalized anxiety disorder) (Primary Dx); Chronic prescription benzodiazepine use; Dyslipidemia; Testosterone deficiency; Hypovitaminosis D Social History Tobacco Use Types Packs/Day Years [...] Coronavirus/COVID-19? No / Unsure 09/21/2022 2:28 PM HOME HEALTH ADMINISTRATOR documented as of this encounter Last Filed Vital Signs Vital Sign Reading Time Taken Comments Blood Pressure 154/84 09/21/2022 2:45 PM HOME HEALTH ADMINISTRATOR Pulse 86 09/21/2022 2:33 PM HOME HEALTH ADMINISTRATOR Temperature 36.8 ??C (98.3 ??F) 09/21/2022 2:33 PM CS T Respiratory Rate 18 09/21/2022 2:33 PM HOME HEALTH ADMINISTRATOR Oxygen Saturation 97% 09/21/2022 2:33 PM HOME HEALTH ADMINISTRATOR Inhaled Oxygen Concentration - - Weight 76.2 kg (168 lb) 09/21/2022 2:33 PM HOME HEALTH ADMINISTRATOR Height 177.8 cm (5' 10 ) 09/21/2022 2:33 PM HOME HEALTH ADMINISTRATOR Body Mass Index 24.11 09/21/2022 2:33 PM HOME HEALTH ADMINISTRATOR documented in this encounter Patient Instructions * Patient Instructions* Niya Mcknight PA - 09/21/2022 2:30 PM HOME HEALTH ADMINISTRATOR Have labs drawn fasting HEALTH ADMINISTRATOR documented in this encounter Progress Notes * Niya Mcknight PA - 09/21/2022 2:30 PM CST Images from the original note were not included. OFFICE NOTE Chief Complaint Patient presents with ??? Follow-up Here for follow up and needing medication refill on Xanax. Is wanting to see about getting a prescription for Cialis. SUBJECTIVE: HPI John Veliz is 52 y.o. year old male that presents for FOLLOW UP as noted above. Patient seen on March 25, 2022 for CAD with chronic benzodiazepine use Treatment- medication contract reviewed and signature obtained. Drug screen obtained. Patient can you on medication regimen recommended patient get back into counseling. Follow-up in 3 months for recheck IGGY (generalized anxiety disorder) - JI Vasquez 09/23/22 1236 Written Patient currently on Xanax 0.5 mg t.i.d. p.r.n.. States that he takes Xanax about 4 days per week. States he does try to take holidays from this. Has tried multiple SSRIs in the past without improvement. Has recently come back to the area from [place]. Is getting back into counseling. Denies any overt panic attacks. States he has more of a constant anxious feeling on the days that he has trouble. Denies any depression or suicide ideation. Dyslipidemia - JI Vasquez 09/23/22 1236 Written Currently not on any cholesterol medication Last 3 Lipid Profile ValuesRecent Labs Lab 07/19/21 0845 12/30/19 0836 09/09/19 0841 CHOL 177 213* 199 TRIG 100 275* 208* HDL 41 31* 29* LDLCALC 116* 127* 128* Hypovitaminosis D - JI Vasquez 09/23/22 1236 Written Currently takes vitamin-D 5000 IU daily. Testosterone deficiency - JI Vasquez 09/23/22 1237 Written Was seen by urology in the past. Needing refills on Cialis. Currently on Clomid 50 mg tablet 3 times weekly. Depo testosterone 200 mg IM 1 cc every 12 days. Is due for testosterone levels. Denies anyadverse side effects to current medication regimen. CURRENT MEDICATIONS; Current Outpatient Medications on File Prior to Visit Medication Sig Dispense Refill ??? BD HYPODERMIC NEEDLE 18G X 1 [...] facility-administered medications on file prior to visit. Review of Systems A 10 point ROS was completed and negative except as noted in HPI Social History Tobacco Use Smoking Status Former ??? Packs/day: 1.00 ??? Types: Cigarettes ??? Quit date: 01/22/2015 ??? Years since quittin.6 Smokeless Tobacco Former Immunization History Administered Date(s) Administered ??? Tdap 10/14/2013, 09/08/2022 OBJECT RITESH: Visit Vitals BP (!) 154/84 Pulse 86 Temp 98.3 ??F (36.8 ??C) (Tympanic) Resp 18 Ht 5' 10 Wt 168 lb (76.2 kg) SpO2 97% BMI 24.11 kg/m?? Smoking Status Former BSA 1.94 m?? Physical Exam Constitutional: Appearance: Normal appearance. [...] oriented to person, place, and time. Psychiatric: Mood and Affect: Mood normal. Encounter Diagnoses Name Primary? IGGY (generalized anxiety disorder) Yes ??? Chronic prescription benzodiazepine use ??? Dyslipidemia ??? Testosterone deficiency ??? Hypovitaminosis D PLAN: TREATMENT - IGGY (generalized anxiety disorder) - JI Vasquez 09/23/22 1240 Edited Patient currently on Xanax 0.5 mg t.i.d. p.r.n.. States that he takes Xanax about 4 days per week. States he does try to take holidays from this. Has tried multiple SSRIs in the past without improvement. Has recently come back to the area from [place]. Is getting back into counseling. Denies any overt panic attacks. States he has more of a constant anxious feeling on the days that he has trouble. Denies any depression or suicide ideation. AUDIOVISUAL LIBRARIAN reviewed. No concerns noted. Is current on medication contract and drug screen. Last drug screen did show ethanol. Discuss this with patient. States that he is no longer drinking. Will continue same. Will get back in with counseling at [facility]. Did explain to patient that if he had accelerating need for anxiolytic that he would need to see Psychiatry. Dyslipidemia - JI Vasquez 09/23/22 1240 Edited Currently not on any cholesterol medication Last 3 Lipid Profile ValuesRecent Labs Lab 07/19/21 0845 12/30/19 0836 09/09/19 0841 CHOL 177 213* 199 TRIG 100 275* 208* HDL 41 31* 29* LDLCALC 116* 127* 128* Obtain cholesterol fasting Hypovitaminosis D - JI Vasquez 09/23/22 1240 Edited Currently takes vitamin-D 5000 IU daily. Obtain vitamin-D level Testosterone deficiency - JI Vasquez 09/23/22 1241 Edited Was seen by urology in the past. Needing refills on Cialis. Currently on Clomid 50 mg tablet 3 times weekly. Depo testosterone 200 mg IM 1 cc every 12 days. Is due for testosterone levels. Denies anyadverse side effects to current medication regimen. Will continue same at this time. Obtain labs asnoted below including free and total testosterone level. Pending results patient may ultimately need referred back to Urology. Medications Discontinued During This Encounter Medication Reason ??? tadalafil (CIALIS) 20 MG tablet Reorder ??? ALPRAZolam (XANAX) 0.5 MG tablet Reorder Orders Placed This Encounter Procedures ??? CBC w/Auto Diff ??? Comprehensive Metabolic Panel ??? Lipid Profile ??? TSH Third Generation ??? Vitamin D 25 Hydroxy ??? TOTAL TESTOSTERONE ??? Testosterone Free (Male) Orders Placed This Encounter Medications ??? tadalafil (CIALIS) 20 MG tablet Sig: Take 1 tablet (20 mg) by mouth as needed for Erectile Dysfunction Indications: Erectile Dysfunction Dispense: 90 tablet Refill: 0 ??? ALPRAZolam (XANAX) 0.5 MG tablet Sig: Take 1 tablet (0.5 mg) by mouth 3 times daily as needed Dispense: 90 tablet Refill: 0 This prescription was filled on 03/16/2022. Any refills authorized will be placed on file. Return in about 3 months (around 12/20/2022). JI Vasquez 09/23/2022 12:41 PM This railway signal operator was electronically signed. It was dictated by use of voice recognition software and electronically transcribed. The railway signal operator may contain errors not detected in proofreading. HEALTH ADMINISTRATOR documented in this encounter Miscellaneous Notes * Assessment & Plan Note - Niya Mcknight PA - 09/23/2022 12:37 PM HOME HEALTH ADMINISTRATOR Associated Problem(s): Testosterone deficiency Was seen by urology in the past. Needing refills on Cialis. Currently on Clomid 50 mg tablet 3 times weekly. Depo testosterone 200 mg IM 1 cc every 12 days. Is due for testosterone levels. Denies anyadverse side effects to current medication regimen. Will continue same at this time. Obtain labs asnoted below including free and total testosterone level. Pending results patient may ultimately need referred back to Urology. HEALTH ADMINISTRATOR * Assessment & Plan Note - Niya Mcknight PA - 09/23/2022 12:36 PM HOME HEALTH ADMINISTRATOR Associated Problem(s): Hypovitaminosis D Currently takes vitamin-D 5000 IU daily. Obtain vitamin-D level HEALTH ADMINISTRATOR * Assessment & Plan Note - Niya Mcknight PA - 09/23/2022 12:36 PM HOME HEALTH ADMINISTRATOR Associated Problem(s): Dyslipidemia Currently not on any cholesterol medication Last 3 Lipid Profile ValuesRecent Labs Lab 07/19/21 0845 12/30/19 0836 09/09/19 0841 CHOL 177 213* 199 TRIG 100 275* 208* HDL 41 31* 29* LDLCALC 116* 127* 128* Obtain cholesterol fasting HEALTH ADMINISTRATOR * Assessment & Plan Note - Niya Mcknight PA - 09/23/2022 12:35 PM HOME HEALTH ADMINISTRATOR Associated Problem(s): IGGY (generalized anxiety disorder) Patient currently on Xanax 0.5 mg t.i.d. p.r.n.. States that he takes Xanax about 4 days per week. States he does try to take holidays from this. Has tried multiple SSRIs in the past without improvement. Has recently come back to the area from [place]. Is getting back into counseling. Denies any overt panic attacks. States he has more of a constant anxious feeling on the days that he has trouble. Denies any depression or suicide ideation. AUDIOVISUAL LIBRARIAN reviewed. No concerns noted. Is current on medication contract and drug screen. Last drug screen did show ethanol. Discuss this with patient. States that he is no longer drinking. Will continue same. Will get back in with counseling at [facility]. Did explain to patient that if he had accelerating need for anxiolytic that he would need to see Psychiatry. HEALTH ADMINISTRATOR documented in this encounter Plan of Treatment Not on file documented as of this encounter Results * TESTOSTERONE FREE (MALE) (10/17/2022 8:58 AM HOME HEALTH ADMINISTRATOR) [facility] Testosterone Free 76 47 - 244 pg/mL [facility] Comment: (NOTE) INTERPRETIVE INFORMATION: ??Testosterone, Free Calculation [...] Children, or Individuals on Testosterone-Suppressing Hormone Therapy) ([employer] test code [id number]). For individuals on testosterone hormone therapy, refer to cisgender male reference intervals. No reference intervals have been established for males younger than 14 years or for cisgender females. For a complete set of all established reference intervals, refer to ltd[facility]/Tests/Pub/[id number]. Performed By: [employer] [address] [place] [id number] Electric Scoop Operator: Jeb Machuca MD, PhD Blood 10/17/2022 8:58 AM HOME HEALTH ADMINISTRATOR 10/17/2022 9:03 AM HOME HEALTH ADMINISTRATOR Niya WORKMAN LAB SEND OUT ORDER MELVIN Performing Organization Address City/[facility] Co de Phone Number [facility] [employer] [address] * TOT TESTOSTERONE,MALE (10/17/2022 8:58 AM HOME HEALTH ADMINISTRATOR) Tot Testosterone ,Male 361 THE ACCESS TESTOSTERONE ASSAY IS PARAMAGNETIC PARTICLE, CHEMILUMINESCENT IMMUNOASSAY FOR THE QUANTITATIVE DETERMINATION OF TOTAL TESTOSTERONE LEVELS IN HUMAN SERUM USING THE [employer] IMMUNOASSAY SYSTEMS. THE ACCESS TESTOSTERONE ASSAY IS A COMPETITIVE BINDING IMMUNOENZYMATIC ASSAY. ??TESTOSTERONE TEST RESULTS FROM DIFFERENT MANUFACTURERS WILL VARY. RESULTS SHOULD BE INTERPRETED IN LIGHT OF TOTAL CLINICAL PRESENTATION OF THE PATIENT, INCLUDING SYMPTOMS, CLINICAL HISTORY, DATA FROM ADDITIONAL TESTS AND OTHER APPROPRIATE INFORMATION. 175.00 - 781.00 NG/DL [facility] 10/17/2022 8:58 AM HOME HEALTH ADMINISTRATOR 10/17/2022 9:03 AM HOME HEALTH ADMINISTRATOR Niya WORKMAN CHEMISTRY ORDERABL ES Performing Organization Address [facility] de Phone Number [facility] [address] [place] [address] * VITAMIN D 25 HYDROXY (10/17/2022 8:58 AM HOME HEALTH ADMINISTRATOR) Vitamin D 25-Hydroxy 39.9 <20 Deficient 20-29 Insufficient 30-100 Sufficient >100 Upper Safety Limit 30.00 - 100.00 mg/dL [facility] 10/17/2022 8:58 AM HOME HEALTH ADMINISTRATOR 10/17/2022 9:03 AM HOME HEALTH ADMINISTRATOR Niya WORKMAN CHEMISTRY ORDERABL ES Performing Organization Address [facility] Co de Phone Number [facility] [address] [place] [address] * TSH THIRD GENERATION (10/17/2022 8:58 AM HOME HEALTH ADMINISTRATOR) TSH 0.87 0.05-3.70 FEMALES, 1ST TRIMESTER 0.31-4.35 FEMALES, 2ND TRIMESTER 0.41-5.18 FEMALES, 3RD TRIMESTER 0.45 - 5.33 uIU/mL [facility] [employer] Blood 10/17/2022 8:58 AM HOME HEALTH ADMINISTRATOR 10/17/2022 9:03 AM HOME HEALTH ADMINISTRATOR Niya WORKMAN CHEMISTRY ORDERABL ES Performing Organization Address [facility]/State/[facility] Co de Phone Number [facility] [address] [place], [place] [address] * (ABNORMAL) LIPID PROFILE (10/17/2022 8:58 AM HOME HEALTH ADMINISTRATOR) Cholesterol 187 0 - 200 MG/DL [facility] [employer] [facility] [email or web address] Triglycerides 208(H) <150 MG/DL [facility] [email or web address] HDL 62 23 - 92 MG/DL [email or web address] LDL Cholesterol 83 <130 MG/DL [facility] [employer] [facility] [place] [facility] LDL/HDL Ratio 1.34 [facility] [place] [facility] VLDL, Calc 42(H) 5 - 40 MG/DL [facility] [email or web address] LDL, High Risk RELATIVE RISK ? MALE ?FEMALE 1/2 AVERAGE ? 1.00 ? 1.47 AVERAGE ? 3.55 ? 3.22 2X AVERAGE ?6.25 ? 5.03 3X AVERAGE ?7.99 ? 6.14 AN AVERAGE RISK RATIO INFERS A 10% LIKELIHOOD OF SIGNIFICANT CAD BY AGE 60. OTHER RISK FACTORS SUCH GLUCOSE INTOLERANCE, SMOKING HISTORY, HYPERTENSION AND OBESITY WILL FURTHER MODIFY THE RELATIVE RISK RATIO. [facility] [employer] Blood 10/17/2022 8:58 AM HOME HEALTH ADMINISTRATOR 10/17/2022 9:03 AM HOME HEALTH ADMINISTRATOR Niya WORKMAN CHEMISTRY ORDERABL ES Performing Organization Address City/[facility]/ZIP Co de Phone Number [facility] [address] [place] [address] * (ABNORMAL) COMPREHENSIVE METABOLIC PANEL (10/17/2022 8:58 AM HOME HEALTH ADMINISTRATOR) Glucose 96 74 - 109 MG/DL [facility] Blood Urea Nitrogen 7 7 - 25 MG/DL [facility] Creatinine 1.2 0.6 - 1.3 MG/DL [facility] Sodium 136 136 - 145 MMOL/L [facility] Potassium 3.1(L) 3.5 - 5.1 MMOL/L [facility] Chloride 94(L) 98 - 107 MMOL/L [facility] Co2 30 21 - 31 MMOL/L [facility] Calcium 10.0 8.6 - 10.3 MG/DL [facility] Protein Total 7.5 6.4 - 8.9 G/DL [facility] Albumin 4.6 3.5 - 5.7 G/DL [facility] A/G Ratio 1.6 0.8 - 2.0 [facility] Alkaline Phosphatase 91 34 - 104 U/L [facility] Alt (SGPT) 19 7 - 52 U/L [facility] AST(SGOT) 16 13 - 39 U/L [facility] Bilirubin, Total 1.7(H) 0.3 - 1.0 MG/DL [facility] GFR Comment IF PATIENT IS , MULTIPLY RESULT BY 1.16 [facility] Est GFR 70(L) >90 ML/MIN/1. 73sq.m [facility] Blood 10/17/2022 8:5 8 AM HOME HEALTH ADMINISTRATOR 10/17/2022 9:03 AM HOME HEALTH ADMINISTRATOR Niya WORKMAN CHEMISTRY ORDERABL ES Performing Organization Address [facility] Co de Phone Number [facility] [address] [place] [address] * (ABNORMAL) CBC W AUTO DIFF (10/17/2022 8:58 AM HOME HEALTH ADMINISTRATOR) White Blood Cell Count 7.3 4.8 - 9.6 THOUS/uL [facility] Red Blood Cell Count 5.36 4.33 - 5.59 MIL/uL [facility] Hemoglobin 17.6(H) 13.1 - 16.8 GM/DL [facility] Hematocrit 50.5(H) 38.8 - 49.0 % [facility] Mean Corpuscular Volume 94.2 82.7 - 94.4 FL [facility] Mean Corpuscular Hemoglobin 32.8(H) 27.7 - 32.6 PG [facility] Mean Corpuscular Hemoglobin Conc 34.9 32.4 - 35.7 G/DL [facility] Rdwcv 13.5 11.6 - 13.9 % [facility] Rdwsd 47.1(H) 36.0 - 46.1 [facility] Platelet Count 319 154 - 364 THOUS/uL [facility] Mean Platelet Volume 9.0 8.7 - 11.7 [facility] Nucleated Red Blood Cells 0.0 0.0 /100 WBC'S [facility] Abs NRBC 0.0 0.0 THOUS/uL [facility] Differential Type AUTO FE [facility] Neutrophils 68.2(H) 34.0 - 67.9 % [facility] Lymphs 18.2(L) 19.1 - 41.2 % [facility] Monocytes 10.8 6.1 - 12.3 % [facility] Eos 1.0 0.9 - 7.6 % [facility] Basos 1.1 0.2 - 1.5 % [facility] Neutrophils Absolute Count 5.0 2.7 - 5.8 THOUS/uL [facility] Lymphocytes Absolute Count 1.3 1.1 - 3.3 THOUS/uL [facility] Monocytes Absolute Count 0.8 0.4 - 0.9 THOUS/uL [facility] Eosinophils Absolute Count 0.1 0.1 - 0.6 THOUS/uL [facility] Basophils Absolute Count 0.1 0.0 - 0.1 THOUS/uL [facility] Imm Gran 0.7 0.2 - 0.9 % [facility] Abs Imm Gran 0.05 0.0 - 0.1 THOUS/uL [facility] Blood 10/17/2022 8:58 AM HOME HEALTH ADMINISTRATOR 10/17/2022 9:03 AM HOME HEALTH ADMINISTRATOR Niya WORKMAN HEMATOLOGY ORDERAB LES [facility] [address] documented in this encounter Visit Diagnoses Diagnosis IGGY (generalized anxiety disorder)- Primary Generalized anxiety disorder Chronic prescription benzodiazepine use Dyslipidemia Other and unspecified hyperlipidemia Testosterone deficiency Other testicular hypofunction Hypovitaminosis D Unspecified vitamin D deficiency documented in this encounter Care Teams Hot Blast Worker Relationship Specialty Start Date End Date Niya Mcknight PA [facility] [place] [address] PCP - General Family Medicine 03/11/22 06/01/23 documented as of this encounter
--- OUTSIDE RECORDS SUMMARY | 2024-08-23 12:06 | XMS_ITS | Encounter Summary ---
Author Organization [facility] Address [address] [place] [address] Care Team Providers Care Assistant Art Director Name Role Phone Niya Mcknight Primary Care Provider +1- [phone] Reason for Referral * Referral (Routine) - Closed Specialty Diagnoses / Procedures Referred By Conturi t Referred To Contact Urology Diagnoses Testosterone deficiency Niya Mcknight PA [address] [place] [address] [address] Referral ID Status Reason Start Date Expiration Date V isits Requested Visits Authorized [id number] Closed Consult 10/22/2022 1 1 NG MACHINE ATTACHMENT TESTER Reason for Visit * Reason Comments Follow-up Here for 1 month fol low up post labs. Encounter Details Date Type Department Care Team (Late st Contact Info) Description 10/22/2022 2:00 PM SEWING MACHINE ATTACHMENT TESTER Office Visit [address] [address] Niya Mcknight PA [address] [place] [address] IGGY (generalized anxiety disorder) (Primary Dx); Testosterone deficiency; Elevated hemoglobin (HCC); Hypokalemia; Dyslipidemia; Hypovitaminosis D Social History Tobacco Use Types [...] suspected to have Coronavirus/COVID-19? No / Unsure 10/22/2022 1:57 PM SEWING MACHINE ATTACHMENT TESTER documented as of this encounter Last Filed Vital Signs Vital Sign Reading Time Taken Comments Blood Pressure 160/92 10/22/2022 2:03 PM SEWING MACHINE ATTACHMENT TESTER Pulse 86 10/22/2022 2:03 PM SEWING MACHINE ATTACHMENT TESTER Temperature 36.3 ??C (97.4 ??F) 10/22/2022 2:03 PM CS T Respiratory Rate 18 10/22/2022 2:03 PM SEWING MACHINE ATTACHMENT TESTER Oxygen Saturation 100% 10/22/2022 2:03 PM SEWING MACHINE ATTACHMENT TESTER Inhaled Oxygen Concentration - - Weight 76.2 kg (168 lb) 10/22/2022 2:03 PM SEWING MACHINE ATTACHMENT TESTER Height 177.8 cm (5' 10 ) 10/22/2022 2:03 PM SEWING MACHINE ATTACHMENT TESTER Body Mass Index 24.11 10/22/2022 2:03 PM SEWING MACHINE ATTACHMENT TESTER documented in this encounter Patient Instructions * Patient Instructions* Niya Mcknight PA - 10/22/2022 2:00 PM SEWING MACHINE ATTACHMENT TESTER Have blood pressures checked when you have labs drawn Have labs drawn in 1 month. Office will call with date and time of appointment with urologist. NG MACHINE ATTACHMENT TESTER * Attachments The following attachments cannot be sent through Care Everywhere. * Hypokalemia (General Information) (Prydeinig) documented in this encounter Progress Notes * Niya Mcknight PA - 10/22/2022 2:00 PM CST Images from the original note were not included. OFFICE NOTE Chief Complaint Patient presents with ??? Follow-up Here for 1 month follow up post labs. SUBJECTIVE: CALI Veliz is 52 y.o. year old male that presents for FOLLOW UP as noted above. Patient seen on September 21, 2022 for general anxiety disorder, chronic benzodiazepine use, dyslipidemia, testosterone deficiency and hypovitaminosis. Treatment- CHAIN SPLITTER reviewed. No concerns noted. Continued on currentmedication regimen. Medication contract reviewed and signature obtained. Drug screen obtained. Patient was to get back in with counseling at [facility]. Continued with testosterone therapy. Patient have CBC CMP lipid TSH vitamin-D free and total testosterone in follow-up in 3 months. IGGY (generalized anxiety disorder) - IJ Vasquez 10/22/22 1625 Written Patient now seen Dr. Tanner for counseling. Patient had occult office stating Dr. Tanner wanted TSH free T4 and T3 tested. These were drawn and are normal. Patient doing well with current medication regimen. Is doing well with counseling. Denies any adverse side effects current medication regimen. Is on Xanax 0.5 mg t.i.d. p.r.n.. Dyslipidemia - JI Vasquez 10/22/22 1626 Written Last 3 Lipid Profile ValuesRecent Labs Lab 10/17/22 0858 07/19/21 0845 12/30/19 0836 CHOL 187 177 213* TRIG 208* 100 275* HDL 62 41 31* LDLCALC 83 116* 127* Patient states that he has started eating more nuts walnuts and almonds. Believes he may be eating more than he should. Is currently not on any statin therapy. Hypovitaminosis D - JI Vasquez 10/22/22 1626 Written Vitamin D 25-Hydroxy Date Value Ref Range Status 10/17/2022 30.00 - 100.00 mg/dL Final 39.9 <20 Deficient 20-29 Insufficient 30-100 Sufficient >100 Upper Safety Limit Currently on vitamin-D 5000 IU daily. Denies any adverse side effects to current medication regimen Testosterone deficiency - JI Vasquez 10/22/22 1627 Written Currently on Depo testosterone 200 milligram/mL 1 mL q.12 days and Clomid 50 mg TIW. Patient had been seen neurologist in [facility]. Had started seeing Cody Simms at this facility for awhile. Cody is currently no longer available. Patient is willing to reestablish with urology but would like to do so closer to home. CURRENT MEDICATIONS; Current Outpatient Medications on File Prior to Visit Medication Sig Dispense Refill ??? [DISCONTINUED] ALPRAZolam [...] (40 mg) by mouth as needed ??? tadalafil (CIALIS) 20 MG tablet Take [...] ??? Quit date: 01/22/2015 ??? Years since quittin.7 Smokeless Tobacco Former Immunization History Administered Date(s) Administered ??? Tdap 10/14/2013, 09/08/2022 OBJECT RITESH: Visit Vitals BP (!) 160/92 Pulse 86 Temp 97.4 ??F (36.3 ??C) (Tympanic) Resp 18 Ht 5' 10 Wt 168 lb (76.2 kg) SpO2 100% BMI 24.11 kg/m?? Smoking Status Former BSA [...] Primary? IGGY (generalized anxiety disorder) Yes ??? Testosterone deficiency ??? Elevated hemoglobin (HCC) ??? Hypokalemia ??? Dyslipidemia ??? Hypovitaminosis D PLAN: TREATMENT - IGGY (generalized anxiety disorder) - JI Vasquez 10/22/22 8050 Edited Patient now seen Dr. Tanner for counseling. Patient had occult office stating Dr. Tanner wanted TSH free T4 and T3 tested. These were drawn and are normal. Patient doing well with current medication regimen. Is doing well with counseling. Denies any adverse side effects current medication regimen. Kj Xanax 0.5 mg t.i.d. p.r.n.. Continue same. Follow-up in 3 months Dyslipidemia - JI Vasquez 10/22/22 1620 Edited Last 3 Lipid Profile ValuesRecent Labs Lab [...] Instructed to decrease concentrated carbohydrates in diet Hypovitaminosis D - JI Vasquez 10/22/22 1630 Edited Vitamin D 25-Hydroxy Date Value Ref Range Status 10/17/2022 30.00 - 100.00 mg/dL Final 39.9 <20 Deficient 20-29 Insufficient 30-100 Sufficient >100 Upper Safety Limit Currently on vitamin-D 5000 IU daily. Denies any adverse side effects to current medication regimencontinue same Testosterone deficiency - JI Vasquez 10/22/22 1631 Edited Currently on Depo testosterone 200 milligram/mL 1 mL q.12 days and Clomid 50 mg TIW. Patient had been seen neurologist in [facility]. Had started seeing Cody Simms at this facility for awhile. Cody is currently no longer available. Patient is willing to reestablish with urology but would like to do so closer to home. Continue same at present. Referral to urology Elevated hemoglobin -patient no longer smokes but states that his girlfriend does. Is exposed to a significant amount of secondhand smoke. -will repeat CBC in 1 month Elevated blood pressure and low potassium BP Readings from Last 3 Encounters: 10/22/22 (!) 160/92 09/21/22 (!) 154/84 09/08/22 (!) 154/90 Blood pressure has been elevated on the last 3 checks. Does have some white coat. Potassium is mildly low. -patient given information on high potassium foods. -adding potassium 20 mEq daily. -repeat BMP in 1 month -have nursing check blood pressure at lab draw. Orders Placed This Encounter Procedures ??? Basic metabolic panel ??? CBC w Auto Diff ??? Ambulatory Referral to Urology Orders Placed This Encounter Medications ??? ALPRAZolam (XANAX) 0.5 MG tablet Sig: Take 1 tablet (0.5 mg) by mouth 3 times daily as needed Dispense: 90 tablet Refill: 2 This prescription was filled on 03/16/2022. Any refills authorized will be placed on file. ??? potassium chloride (K-DUR) 20 MEQ tablet Sig: Take 1 tablet (20 mEq) by mouth daily Dispense: 90 tablet Refill: 0 Return in about 3 months (around 01/19/2023). Patient Instructions Have blood pressures checked when you have labs drawn Have labs drawn in 1 month. Office will call with date and time of appointment with urologist. JI Vasquez 10/22/2022 4:31 PM This family services manager was electronically signed. It was dictated by use of voice recognition software and electronically transcribed. The family services manager may contain errors not detected in proofreading. NG MACHINE ATTACHMENT TESTER documented in this encounter Miscellaneous Notes * Assessment & Plan Note - Niya Mcknight PA - 10/22/2022 4:26 PM SEWING MACHINE ATTACHMENT TESTER Associated Problem(s): Testosterone deficiency Currently on Depo testosterone 200 milligram/mL 1 mL q.12 days and Clomid 50 mg TIW. Patient had been seen neurologist in [facility]. Had started seeing Cody Simms at this facility for awhile. Cody is currently no longer available. Patient is willing to reestablish with urology but would like to do so closer to home. Continue same at present. Referral to urology NG MACHINE ATTACHMENT TESTER * Assessment & Plan Note - Niya Mcknight PA - 10/22/2022 4:26 PM SEWING MACHINE ATTACHMENT TESTER Associated Problem(s): Hypovitaminosis D Vitamin D 25-Hydroxy Date Value Ref Range Status 10/17/2022 30.00 - 100.00 mg/dL Final 39.9 <20 Deficient 20-29 Insufficient 30-100 Sufficient >100 Upper Safety Limit Currently on vitamin-D 5000 IU daily. Denies any adverse side effects to current medication regimencontinue same NG MACHINE ATTACHMENT TESTER * Assessment & Plan Note - Niya Mcknight PA - 10/22/2022 4:25 PM SEWING MACHINE ATTACHMENT TESTER Associated Problem(s): Dyslipidemia Last 3 Lipid Profile ValuesRecent Labs Lab [...] Instructed to decrease concentrated carbohydrates in diet NG MACHINE ATTACHMENT TESTER * Assessment & Plan Note - Niya Mcknight PA - 10/22/2022 4:25 PM SEWING MACHINE ATTACHMENT TESTER Associated Problem(s): IGGY (generalized anxiety disorder) Patient now seen Dr. Tanner for counseling. Patient had occult office stating Dr. Tanner wanted TSH free T4 and T3 tested. These were drawn and are normal. Patient doing well with current medication regimen. Is doing well with counseling. Denies any adverse side effects current medication regimen. Kj Xanax 0.5 mg t.i.d. p.r.n.. Continue same. Follow-up in 3 months NG MACHINE ATTACHMENT TESTER documented in this encounter Plan of Treatment Scheduled Referrals Name Type Priority Associated Diagnoses Orde r Schedule AMB REFERRAL TO UROLOGY Outpatient Referral Routine Testosterone deficiency Ordered: 10/22/2022 documented as of this encounter Results * (ABNORMAL) BASIC METABOLIC PANEL (CHEM8) (01/16/2023 9:58 AM CDT) Glucose 107 74 - 109 MG/DL [facility] Blood Urea Nitrogen 17 7 - 25 MG/DL [facility] Creatinine 1.3 0.6 - 1.3 MG/DL [facility] Sodium 137 136 - 145 MMOL/L [facility] Potassium 4.1 3.5 - 5.1 MMOL/L [facility] Chloride 102 98 - 107 MMOL/L [facility] Co2 30 21 - 31 MMOL/L [facility] Calcium 9.5 8.6 - 10.3 MG/DL [facility] GFR Comment IF PATIENT IS , MULTIPLY RESULT BY 1.16 [facility] Est GFR 64(L) >90 ML/MIN/1. 73sq.m [facility] Blood 01/16/2023 9:58 AM CDT 01/16/2023 10:03 AM CDT Niya WORKMAN CHEMISTRY ORDERABL ES [facility] [address] documented in this encounter Visit Diagnoses Diagnosis IGGY (generalized anxiety disorder)- Primary Generalized anxiety disorder Testosterone deficiency Other testicular hypofunction Elevated hemoglobin (HCC) Other hemoglobinopathies Hypokalemia Hypopotassemia Dyslipidemia Other and unspecified hyperlipidemia Hypovitaminosis D Unspecified vitamin D deficiency documented in this encounter Care Teams Assistant Art Director Relationship Specialty Start Date End Date Niya Mcknight PA [address] [place] [address] PCP - General Family Medicine 03/11/22 06/01/23 documented as of this encounter
--- OUTSIDE RECORDS SUMMARY | 2024-08-23 12:06 | XMS_ITS | Encounter Summary ---
Author Organization [facility] Address [address] [place] [address] Care Team Providers Care Unindentured Apprentice Name Role Phone Niya Mcknight Primary Care Provider +1- [phone] Reason for Visit * Reason Comments Medication Refill Encounter Details Date Type Department Care Team ([facility] st Contact Info) Description 03/17/2023 Refill [facility] [address] [place] [address] Cody Simms PA [address] [place], [place] [id number] Medication Refill Social History Tobacco Use Types [...] therapy documented in this encounter Care Teams Unindentured Apprentice Relationship Specialty Start Date End Date Niya Mcknight PA [address] [place] [address] PCP - General Family Medicine 03/11/22 06/01/23 documented as of this encounter
--- OUTSIDE RECORDS SUMMARY | 2024-08-23 12:06 | XMS_ITS | Encounter Summary ---
Author Organization [facility] Address [address] [place] [address] Care Team Providers Care Seam Closer Name Role Phone Niya Mcknight Primary Care Provider +1- [phone] Reason for Visit * Reason Comments Medication Refill Encounter Details Date Type Department Care Team ([facility] st Contact Info) Description 03/30/2023 Refill [facility] [address] [place] [address] Cody Simms PA [address] [place], [place] [id number] Medication Refill Social History Tobacco Use Types [...] therapy documented in this encounter Care Teams Seam Closer Relationship Specialty Start Date End Date Niya Mcknight PA [address] [place] [address] PCP - General Family Medicine 03/11/22 06/01/23 documented as of this encounter
--- OUTSIDE RECORDS SUMMARY | 2024-08-23 12:06 | XMS_ITS | Encounter Summary ---
Author Organization [facility] Address [address] [place] [address] Care Team Providers Care Ice Grinder Name Role Phone Niya Mcknight Primary Care Provider +1- [phone] Reason for Visit * Reason Comments Follow-up Here for 6 week foll ow up post seeing Dr. Lyles. Encounter Details Date Type Department Care Team (Late st Contact Info) Description 03/10/2023 2:30 PM CDT Office Visit [facility] [address] [place] [address] [place] [address] [place] [address] Hypertension, unspecified type (Primary Dx); IGGY (generalized anxiety disorder) Social History Tobacco Use Types Packs/Day Years Used Date Smoking Tobacco: Former Cigarettes Q uit: 01/22/2015 Smokeless Tobacco: Former Tobacco Cessation:Counseling Given: Not Answered Comments:Exposed to second hand [...] Sign Reading Time Taken Comments Blood Pressure 130/92 03/10/2023 3:31 PM CDT Pulse 92 03/10/2023 2:27 PM CDT Temperature 36.9 ??C (98.4 ??F) 03/10/2023 2:27 PM CD T Respiratory Rate 18 03/10/2023 2:27 PM CDT Oxygen Saturation 97% 03/10/2023 2:27 PM CDT Inhaled Oxygen Concentration - - Weight 83.5 kg (184 lb) 03/10/2023 2:27 PM CDT Height 177.8 cm (5' 10 ) 03/10/2023 2:27 PM CDT Body Mass Index 26.4 03/10/2023 2:27 PM CDT documented in this encounter Progress Notes * Niya Mcknight PA - 03/10/2023 2:30 PM CDT Images from the original note were not included. OFFICE NOTE Chief Complaint Patient presents with ??? Follow-up Here for 6 week follow up post seeing Dr. Lyles. SUBJECTIVE: HPI John Veliz is 52 y.o. year old male that presents for FOLLOW UP as noted above. Patient seen on January 18, [address] Lyles for general anxiety disorder & male hypogonadism. Treatment- discussed need for daily medication as patient was needing daily rescue med. Also discussed ethyl alcohol and drug screen which would exacerbate and increase possible adverse effects including respiratory de pression and from using with Xanax Lexapro, buspar Will need Xanax on 14 IGGY (generalized anxiety disorder) - Niya Mcknight PA 03/11/23 1415 Written Patient has been tried on multiple medications in the past including lexapro, buspar, Effexor. Is currently on Xanax p.r.n.. However patient is now having to take this on a daily basis. Had been doing better when he was living in [place]. States that his stressors are much less when he is in [place] but since returning to [place] is having some difficulties. Patient's blood pressure is quite elevated today. Denies any chest pain. Patient states that his anxiety started when he was 21 years old. States that was driving down the road with his father and just started feeling very anxious and was having chest pain. States that he was taken to the emergency room and has had multiple testing do ne. States they have always told him everything was fine physically. Hypertension - Niya Mcknight PA 03/11/23 1416 Written Patient is currently not on any blood [...] that he quit smoking 8 years ago. CURRENT MEDICATIONS; Current Outpatient Medications on File [...] ??? Quit date: 01/22/2015 ??? Years since quittin.1 Smokeless Tobacco Former Tobacco Comments Exposed to second hand smoke Vaping Use ??? Vaping Use: Never used Immunization History Administered Date(s) Administered ??? Tdap 10/14/2013, 09/08/2022 OBJECT RITESH: Visit Vitals BP (!) 130/92 Pulse 92 Temp 98.4 ??F (36.9 ??C) (Tympanic) Resp 18 Ht 5' 10 Wt 184 lb (83.5 kg) SpO2 97% BMI 26.40 kg/m?? Smoking Status Former BSA 2.03 m?? Physical Exam Constitutional: Appearance: Normal appearance. [...] No edema. Comments: Nicotine stains to fingers Lymphadenopathy: Cervical: No cervical adenopathy. Skin: General: Skin is warm and dry. Capillary Refill: Capillary refill takes less than 2 seconds. Findings: No rash. Neurological: Mental Status: He is alert and oriented to person, place, and time. Psychiatric: Mood and Affect: Mood normal. Encounter Diagnoses Name Primary? Hypertension, unspecified type Yes ??? IGGY (generalized anxiety disorder) PLAN: TREATMENT - IGGY (generalized anxiety disorder) - Niya Mcknight PA 03/11/23 1420 Edited Patient has been tried on multiple medications in the past including lexapro, buspar, Effexor. Is currently on Xanax p.r.n.. However patient is now having to take this on a daily basis. Had been doing better when he was living in [place]. States that his stressors are much less when he is in [place] but since returning to [place] is having some difficulties. Patient's blood pressure is quite elevated today. Denies any chest pain. Patient states that his anxiety started when he was 21 years old. States that was driving down the road with his father and just started feeling very anxious and was having chest pain. States that he was taken to the emergency room and has had multiple testing do ne. States they have always told him everything was fine physically. Will continue same at present.However I a.m. going to add Toprol 12.5 mg daily. Hopefully the beta-blockade will help with some of the anxiety. Patient will continue with counseling. Patient will have short-term follow-up in 2 weeks. Will recheck blood pressure and obtain medication contract and drug screen at that time. Hypertension - Niya Mcknight PA 03/11/23 1421 Edited Patient is currently not on any blood [...] ago. Add Toprol-XL 12.5 mg daily. Patient issomewhat apprehensive about medication. Ask about coming in office to take the medication. Told himthat he could come into lobby and take the medication if this would help relieve some of the anxiety. Will have short-term follow-up in 2 weeks. Explained the mechanism of action with patient and that hopefully it would help block some adrenaline. Orders Placed This Encounter Medications ??? DISCONTD: metoprolol succinate (TOPROL XL) 25 MG XL tablet Sig: Take 0.5 tablets (12.5 mg) by mouth daily for 30 days Dispense: 15 tablet Refill: 0 ??? metoprolol succinate (TOPROL XL) 25 MG XL tablet Sig: Take 0.5 tablets (12.5 mg) by mouth daily for 30 days Dispense: 15 tablet Refill: 0 Return in about 2 weeks (around 03/24/2023). There are no Patient Instructions on file for this visit. JI Vasquez 03/11/2023 2:21 PM This medical sociologist was electronically signed. It was dictated by use of voice recognition software and electronically transcribed. The medical sociologist may contain errors not detected in proofreading. documented in this encounter Miscellaneous Notes * Assessment & Plan Note - Niya Mcknight PA - 03/11/2023 2:15 PM CDT Associated Problem(s): Hypertension Patient is currently not on any blood [...] ago. Add Toprol-XL 12.5 mg daily. Patient issomewhat apprehensive about medication. Ask about coming in office to take the medication. Told himthat he could come into lobby and take the medication if this would help relieve some of the anxiety. Will have short-term follow-up in 2 weeks. Explained the mechanism of action with patient and that hopefully it would help block some adrenaline. * Assessment & Plan Note - Niya Mcknight PA - 03/11/2023 2:08 PM CDT Associated Problem(s): IGGY (generalized anxiety disorder) Patient has been tried on multiple medications in the past including lexapro, buspar, Effexor. Is currently on Xanax p.r.n.. However patient is now having to take this on a daily basis. Had been doing better when he was living in [place]. States that his stressors are much less when he is in [place] but since returning to [place] is having some difficulties. Patient's blood pressure is quite elevated today. Denies any chest pain. Patient states that his anxiety started when he was 21 years old. States that was driving down the road with his father and just started feeling very anxious and was having chest pain. States that he was taken to the emergency room and has had multiple testing do ne. States they have always told him everything was fine physically. Will continue same at present.However I a.m. going to add Toprol 12.5 mg daily. Hopefully the beta-blockade will help with some of the anxiety. Patient will continue with counseling. Patient will have short-term follow-up in 2 weeks. Will recheck blood pressure and obtain medication contract and drug screen at that time. documented in this encounter Plan of Treatment Not on file documented as of this encounter Visit Diagnoses Diagnosis Hypertension, unspecified type- Primary IGGY (generalized anxiety disorder) Generalized anxiety disorder documented in this encounter Care Teams Ice Grinder Relationship Specialty Start Date End Date Niya Mcknight PA [address] [place] [address] PCP - General Family Medicine 03/11/22 06/01/23 documented as of this encounter
--- OUTSIDE RECORDS SUMMARY | 2024-08-23 12:06 | XMS_ITS | Encounter Summary ---
Author Organization [facility] Address [address] [place] [address] Care Team Providers Care Community Assistant Name Role Phone Niya Mcknight Primary Care Provider +1- [phone] Reason for Visit * Reason Comments Medication Refill Encounter Details Date Type Department Care Team ([facility] st Contact Info) Description 12/19/2022 Refill [facility] [address] [place] [address] Niya Mcknight PA [address] [place] [address] Medication Refill Social History Tobacco [...] disorder documented in this encounter Care Teams Community Assistant Relationship Specialty Start Date End Date Niya Mcknight PA [address] [place] [address] PCP - General Family Medicine 03/11/22 06/01/23 documented as of this encounter
--- OUTSIDE RECORDS SUMMARY | 2024-08-23 12:06 | XMS_ITS | Encounter Summary ---
Author Organization [facility] Address [address] [place] [address] Care Team Providers Care Wet Milling Wheel Operator Name Role Phone Niya Mcknight Primary Care Provider +1- [phone] Reason for Visit * Reason Comments Medication Refill Encounter Details Date Type Department Care Team (Late st Contact Info) Description 12/29/2022 [address]ill [facility] [id number] [address] [place] [address] Cody Simms PA [address] [place] [address] Medication Refill Social History Tobacco [...] therapy documented in this encounter Care Teams Wet Milling Wheel Operator Relationship Specialty Start Date End Date Niya Mcknight PA [address] [place] [address] PCP - General Family Medicine 03/11/22 06/01/23 documented as of this encounter
--- OUTSIDE RECORDS SUMMARY | 2024-08-23 12:06 | XMS_ITS | Encounter Summary ---
Author Organization [facility] Address [address] [place] [address] Care Team Providers Care Fusion Operator Name Role Phone Niya Mcknight Primary Care Provider +1- [phone] Reason for Visit * Reason Comments Medication Refill Encounter Details Date Type Department Care Team ([facility] st Contact Info) Description 12/30/2022 Refill [facility] [address] [place] [address] Niya Mcknight PA [address] [place] [address] Medication Refill Social History Tobacco [...] encounter Miscellaneous Notes * Telephone Encounter - Willy Recinos MD - 12/31/2022 8:19 AM CDT This is a medicine to help people ovulate so they can get . It is used rarely for testosterone issues, but it is not approved for this. I'm not comfortable filling this medicine. He will have to wait until his urologist appointment on 01/18/23 to see if urologist thinks this medicine is appropriate. thx * Telephone Encounter - Jesi Koo LPN - 12/30/2022 2:02 PM CDT Can you please fill this medication in Niya's absence. documented in this encounter Plan of Treatment Not on file documented as of this encounter Visit Diagnoses Not on filedocumented in this encounter Care Teams Fusion Operator Relationship Specialty Start Date End Date Niya Mcknight PA [address] [place] [id number] PCP - General Family Medicine 03/11/22 06/01/23 documented as of this encounter
--- OUTSIDE RECORDS SUMMARY | 2024-08-23 12:06 | XMS_ITS | Encounter Summary ---
Author Organization [facility] Address [address] [place] [address] Care Team Providers Care Buffing Wheel Former Machine Name Role Phone Niya Mcknight Primary Care Provider +1- [phone] Reason for Visit * Reason Comments Shoulder Injury Encounter Details Date Type Department Care Team (Late st Contact Info) Description 03/11/2022 1:43 PM CDT - 03/11/2022 3:27 PM CDT Emergency [facility] Emergency Department [address] [place] [address] Aaron Peguero MD [address] [place] [address] Acute bursitis of right shoulder (Primary Dx) Discharge Disposition: Home Social History [...] suspected to have Coronavirus/COVID-19? No / Unsure 03/25/2022 1:25 PM CDT documented as of this encounter Last Filed Vital Signs Vital Sign Reading Time Taken Comments Blood Pressure 151/84 03/11/2022 3:17 PM CDT Pulse 92 03/11/2022 3:17 PM CDT Temperature 36.7 ??C (98 ??F) 03/11/2022 1:48 PM CDT Respiratory Rate 18 03/11/2022 3:17 PM CDT Oxygen Saturation 97% 03/11/2022 3:17 PM CDT Inhaled Oxygen Concentration - - Weight 88.9 kg (196 lb) 03/11/2022 1:48 PM CDT Height 177.8 cm (5' 10 ) 03/11/2022 1:48 PM CDT Body Mass Index 28.12 03/11/2022 1:48 PM CDT documented in this encounter Discharge Instructions * Attachments The following attachments cannot be sent through Care Everywhere. * Shoulder Bursitis (Power Washer) ([place] Islander) documented in this encounter Medications at Time [...] THREE TIMES DAILY NEEDED 90 tablet 2 12/22/2021 03/19/2022 clomiPHENE (CLOMID) 50 MG tablet TAKE 1 TABLET BY MOUTH 3 TIMES WEEKLY 36 tablet 01/22/2022 01/25/2023 indomethacin (INDOCIN) 50 MG capsule Take 1 capsule (50 mg) by mouth 3 times daily for 7 days 21 capsule 03/11/2022 03/18/2022 tadalafil (CIALIS) 20 MG tablet Take 1 tablet (20 mg) by mouth as needed for Erectile Dysfunction 90 tablet 09/18/2021 09/21/2022 testosterone cypionate (DEPO-TESTOSTERONE) 200 MG/ML injectionIndications: Male hypogonadism Inject 1 ml in large muscle every 12 days 10 mL 1 09/18/2021 01/25/2023 documented as of this encounter ED Notes * Monse Hardy RN - 03/11/2022 3:25 PM CDT Discharge instructions and Rx reviewed with patient. Patient to follow up with PCP as scheduled on March 16. Patient voices good understanding. Asked if he could get scheduled for an MRI for possible rotator cuff injury. Explained that his PCP will decide on further treatment at his appointment. Patient exits ED ambulatory. * Aaron Peguero MD - 03/11/2022 2:02 PM CDT Images from the original note were not included. [facility] Emergency Room General Encounter CHIEF COMPLAINT Chief Complaint Patient presents with ??? Shoulder Injury HPI John Veliz is a 51 y.o. male who presents with right shoulder pain. Patient states he fell on his outstretched arm about a week ago and since then shoulder has been progressively getting more painful. Unable to abduct past 90?? due to pain. States he feels grinding sensation on the shoulder. EMS PRE-ARRIVAL TREATMENT: REVIEW OF SYSTEMS CONSTITUTIONAL: No complaints of fever, chills,or weakness EYES: No complaints of discharge ENT: No complaints of sore throat or ear pain CARDIOVASCULAR: No complaints of chest pain, palpitations, or swelling RESPIRATORY: No complaints of cough or shortness of breath GI: No complaints of abdominal pain, nausea, vomiting, or diarrhea MUSCULOSKELETAL: No complaints of back pain. SKIN: No complaints of rash NEUROLOGIC: No [...] Social History Socioeconomic History ??? Marital status: Tobacco Use ??? Smoking status: Former Smoker Packs/day: 1.00 Types: Cigarettes Quit date: 01/22/2015 Years since quittin.1 ??? Smokeless tobacco: Former User Vaping Use ??? Vaping Use: Never used [...] DRAW UP TESTOSTERONE, Disp: , Rfl: ??? Cholecalciferol (VITAMIN D PO), Take 5,000 Units by mouth daily, Disp: , Rfl: ??? clomiPHENE (CLOMID) 50 MG tablet, TAKE 1 TABLET BY MOUTH 3 TIMES WEEKLY, Disp: 36 tablet, Rfl: 0 ??? indomethacin (INDOCIN) 50 MG capsule, Take 1 capsule (50 mg) by mouth 3 times daily for 7 days,Disp: 21 capsule, Rfl: 0 ??? omeprazole (PRILOSEC) 40 MG capsule, Take 40 mg by mouth as needed, Disp: , Rfl: ??? testosterone cypionate (DEPO-TESTOSTERONE) 200 MG/ML injection, Inject 1 ml in large muscle every 12 days, Disp: 10 mL, Rfl: 1 ALLERGIES Allergies Allergen Reactions ??? Codeine Itching Pt states he feels hot, itchy, and he vomits. PHYSICAL EXAM VITAL SIGNS: ED Triage Vitals [03/11/22 1348] Temp Temp src Pulse Resp BP SpO2 98 ??F (36.7 ??C) Tympanic 100 18 139/87 96 % -- Visit Vitals BP 139/87 Pulse 100 Temp 98 ??F (36.7 ??C) (Tympanic) Resp 18 Ht 5' 10 Wt 196 lb (88.9 kg) SpO2 96% BMI 28.12 kg/m?? Smoking Status Former Smoker BSA 2.1 m?? Constitutional: Well developed. Well nourished. Alert. No acute distress HEENT: Normocephalic. Atraumatic. Oropharynx clear. Bilateral external [...] masses. Extremities: Intact distal pulses. No edema. There is anterior right shoulder joint tenderness withpositive impingement and inability to raise arm due to pain. No deformities noted. Neurologic: Alert & appropriate. Normal motor function. Normal sensory function. No focal deficits noted. Cranial nerves intact. Speech is clear. EKG RADIOLOGY/PROCEDURES XR SHOULDER RIGHT 2 VIEWS Final Result by Marques Soto Results In (03/11 4075) EXAMINATION: XR SHOULDER RIGHT 2 VIEWS CLINICAL HISTORY: 51 years Male,Trauma COMPARISON: There is no prior similar study available for correlation. TECHNIQUE: Right shoulder radiograph, two view FINDINGS: No dislocation or acute fracture. Decreased bone density with narrowed acromio clavicular joint with osteophytes. Humeral head tuberosity chronic sclerosis. No erosive changes or gross bone destruction. Lung gutiérrez are clear of acute finding IMPRESSION: No fracture Arthritis Electronically signed by: Danelle Purcell MD 03/11/2022 3:05 PM CDT COURSE & MEDICAL DECISION MAKING Clinical picture consistent with acute bursitis. Patient will be discharged on indomethacin, will be provided with a sling and advised to follow-up with provider as needed. No results found for this or any previous visit (from the past 24 hour(s)). Old charts were reviewed per [facility] EMR. Pertinent details are summarized above. All [...] use history. FINAL IMPRESSION ICD-10-CM ICD-9-CM 1. Acute bursitis of right shoulder M75.51 726.10 Final Disposition Discharge MD Aaron Fuentes MD 03/11/22 1517 documented in this encounter Miscellaneous Notes * Triage Assessment - Monse Hardy RN - 03/11/2022 1:53 PM CDT Patient presents to the ED with complaints of right shoulder pain. Patient is alert and oriented x 4. Skin warm and dry. Patient gives history of ground level fall one week ago. Patient tripped over a case of water on the floor falling forward. Patient attempted to catch himself by extending right arm. Patient ended up on his right side. Complains of increased pain with any movement of right arm.Denies any other injury. documented in this encounter Plan of Treatment Not on file documented as of this encounter Procedures Procedure Name Priority Date/Time Associated Diagnosis Comments XR SHOULDER RIGHT 2 VIEWS STAT 03/11/2022 2:17 PM CDT documented in this encounter Results * XR SHOULDER RIGHT 2 VIEWS (03/11/2022 2:17 PM CDT) Anatomical Region Laterality Modality Shoulder Radiographic Matilda ging 03/11/2022 2:14 PM CDT Narrative 03/11/2022 3:05 PM CDT EXAMINATION: ??XR SHOULDER RIGHT 2 VIEWS CLINICAL HISTORY: ??51 years Male,Trauma COMPARISON: ??There is no prior similar study available for correlation. TECHNIQUE: ??Right shoulder radiograph, two view FINDINGS: No dislocation or acute fracture. ??Decreased bone density with narrowed acromio clavicular joint with osteophytes. Humeral head tuberosity chronic sclerosis. ??No erosive changes or gross bone destruction. Lung gutiérrez are clear of acute finding IMPRESSION: No fracture Arthritis Electronically signed by: ??Danelle Purcell MD ??03/11/2022 3:05 PM CDT Procedure Note Danelle Purcell MD - 03/11/2022 EXAMINATION: XR SHOULDER RIGHT 2 VIEWS CLINICAL HISTORY: 51 years Male,Trauma COMPARISON: There is no prior similar study available for correlation. TECHNIQUE: Right shoulder radiograph, two view FINDINGS: No dislocation or acute fracture. Decreased bone density with narrowedacromio clavicular joint with osteophytes. Humeral head tuberosity chronic sclerosis. Noerosive changes or gross bone destruction. Lung gutiérrez are clear of acute finding IMPRESSION: No fracture Arthritis Electronically signed by: Danelle Purcell MD 03/11/2022 3:05 [facility] Aaron Peguero MD [facility] IMG DIAG ORDERA BLES documented in this encounter Visit Diagnoses Diagnosis Acute bursitis of right shoulder- Primary documented in this encounter Care Teams Buffing Wheel Former Machine Relationship Specialty Start Date End Date Niya Mcknight PA [address] [place] [address] PCP - General Family Medicine 03/11/22 06/01/23 documented as of this encounter
--- OUTSIDE RECORDS SUMMARY | 2024-08-23 12:06 | XMS_ITS | Encounter Summary ---
Author Organization [facility] Address [address] [place] [address] Care Team Providers Care Cash Accountant Name Role Phone Niya Mcknight Primary Care Provider +1- [phone] Reason for Visit * Reason Comments Follow-up Here for 3 month fol low up. C/o having a lot of right shoulder pain for the last month since he fell and caught himself with his right arm. States he went to the ER a few weeks ago and he did have x-rays of the shoulder. Encounter Details Date Type Department Care Team (Latest Contact Info) Description 03/25/2022 1:30 PM CDT Office Visit [facility] [address] [place] [address] Niya Mcknight PA [address] [place] [address] IGGY (generalized anxiety disorder) (Primary Dx); Chronic prescription benzodiazepine use Social History Tobacco Use [...] Sign Reading Time Taken Comments Blood Pressure 176/112 03/25/2022 1:48 PM CDT Pulse 104 03/25/2022 1:48 PM CDT Temperature 36.6 ??C (97.9 ??F) 03/25/2022 1:48 PM CD T Respiratory Rate 18 03/25/2022 1:48 PM CDT Oxygen Saturation 97% 03/25/2022 1:48 PM CDT Inhaled Oxygen Concentration - - Weight 79.8 kg (176 lb) 03/25/2022 1:48 PM CDT Height 177.8 cm (5' 10 ) 03/25/2022 1:48 PM CDT Body Mass Index 25.25 03/25/2022 1:48 PM CDT documented in this encounter Progress Notes * Niya Mcknight PA - 03/25/2022 1:30 PM CDT Images from the original note were not included. OFFICE NOTE Chief Complaint Patient presents with ??? Follow-up Here for 3 month follow up. C/o having a lot of right shoulder pain for the last month since he fell and caught himself with his right arm. States he went to the ER a few weeks ago and he did have x-rays of the shoulder. SUBJECTIVE: CALI Veliz is 51 y.o. year old male that presents for FOLLOW UP as noted above. Patient seen on December 10, 2021 for GA DE at dyslipidemia encounter to establish care and male hypogonadism. Treatment- continued on current medication regimen. Patient to have repeat labs in July. Patient was not needing any refills on his Xanax when seen. Patient was to follow-up in 3 months for recheck. IGGY (generalized anxiety disorder) - JI Vasquez 04/01/22 1508 Written Patient currently on Xanax 0.5 mg t.i.d. p.r.n.. Has had anxiety for many years. Has done counseling in the past. Was seeing Kenrick Kincaid @ [facility]. States he has not seen him for some time but is willing to go back. Patient relates history of being seen in the emergency room here at [facility] for bursitis. Patient also seen at [facility] facility on March 14, 2022 in the ED [...] due for medication contract and drug screen. FERMENTATION SCIENTIST reviewed and no concerns noted CURRENT MEDICATIONS; Current Outpatient Medications on File Prior to Visit Medication Sig Dispense Refill ??? ALPRAZolam (XANAX) 0.5 MG tablet TAKE ONE TABLET BY MOUTH THREE TIMES DAILY NEEDED 90 tablet2 ??? BD HYPODERMIC NEEDLE 18G X 1 MISC USE TO DRAW UP TESTOSTERONE ??? Cholecalciferol (VITAMIN D PO) Take 5,000 Units by mouth daily ??? clomiPHENE (CLOMID) 50 MG tablet TAKE 1 TABLET BY MOUTH 3 TIMES WEEKLY 36 tablet 0 ??? omeprazole (PRILOSEC) 40 MG capsule Take 40 mg by mouth as needed ??? testosterone cypionate (DEPO-TESTOSTERONE) 200 MG/ML injection Inject 1 ml in large muscle every 12 days 10 mL 1 No current facility-administered medications on file prior to visit. Review of Systems A 10 point ROS was completed and negative except as noted in HPI Social History Tobacco Use Smoking Status Former Smoker ??? Packs/day: 1.00 ??? Types: Cigarettes ??? Quit date: 01/22/2015 ??? Years since quittin.1 Smokeless Tobacco Former User Immunization History Administered Date(s) Administered ??? Tdap 10/14/2013 OBJECT RITESH: Visit Vitals BP (!) 176/112 Pulse (!) 104 Temp 97.9 ??F (36.6 ??C) (Tympanic) Resp 18 Ht 5' 10 Wt 176 lb (79.8 kg) SpO2 97% BMI 25.25 kg/m?? Smoking Status Former Smoker BSA 1.99 m?? Physical Exam Constitutional: Appearance: Normal appearance. [...] disorder) Yes ??? Chronic prescription benzodiazepine use PLAN: TREATMENT - IGGY (generalized anxiety disorder) - JI Vasquez 04/01/22 1509 Edited Patient currently on Xanax 0.5 mg t.i.d. p.r.n.. Has had anxiety for many years. Has done counseling in the past. Was seeing Kenrick Kincaid @ [facility]. States he has not seen him for some time but is willing to go back. Patient relates history of being seen in the emergency room here at [facility] for bursitis. Patient also seen at [facility] facility on March 14, 2022 in the ED [...] due for medication contract and drug screen. FERMENTATION SCIENTIST reviewed and no concerns noted. Medication contract reviewed and signature obtained. Drug screen obtained. Continue with current medicationregimen at this time. Recommend that patient get back and counseling. Will follow-up in 3 months for recheck. There are no discontinued medications. Blood pressure is elevated today. Patient is very anxious as he states he has to get back home so that he can get to work. Was worried that his appointment here was going to make him late for work. Will monitor blood pressure at home. Orders Placed This Encounter Procedures ??? [facility] Drug Screen Return in about 3 months (around 06/25/2022). JI Vasquez 04/01/2022 3:09 PM This hybrid technologist was electronically signed. It was dictated by use of voice recognition software and electronically transcribed. The hybrid technologist may contain errors not detected in proofreading. documented in this encounter Miscellaneous Notes * Assessment & Plan Note - Niya Mcknight PA - 04/01/2022 3:01 PM CDT Associated Problem(s): IGGY (generalized anxiety disorder) Patient currently on Xanax 0.5 mg t.i.d. p.r.n.. Has had anxiety for many years. Has done counseling in the past. Was seeing Kenrick Kincaid @ [facility]. States he has not seen him for some time but is willing to go back. Patient relates history of being seen in the emergency room here at [facility] for bursitis. Patient also seen at [facility] on March 14, 2022 in the [...] due for medication contract and drug screen. FERMENTATION SCIENTIST reviewed and no concerns noted. Medication contract reviewed and signature obtained. Drug screen obtained. Continue with current medication regimen at this time. Recommend that patient get back and counseling. Will follow-up in 3 months forrecheck. documented in this encounter Plan of Treatment Not on file documented as of this encounter Visit Diagnoses Diagnosis IGGY (generalized anxiety disorder)- Primary Generalized anxiety disorder Chronic prescription benzodiazepine use documented in this encounter Care Teams Cash Accountant Relationship Specialty [place] [address] [place] [id number] PCP - General Family Medicine 03/11/22 06/01/23 documented as of this encounter
--- OUTSIDE RECORDS SUMMARY | 2024-08-23 12:06 | XMS_ITS | Encounter Summary ---
Author Organization [facility] Address [address] [place] [address] Care Team Providers Care Cable Television Line Technician Name Role Phone Niya Mcknight Primary Care Provider [phone]- [phone] Reason for Visit * Reason Comments Follow-up Here for 2 week foll ow up on hypertension. Nicotine Dependence Wants to talk about getting on Wellbutrin to help him quit smoking. States he has been smoking some because his girlfriend smokes. Alcohol Problem States he has been d rinking some and is wanting to talk about getting on Naltrexone to keep him from drinking. Encounter Details Date Type Department Care Team (Late st Contact Info) Description 04/07/2023 1:15 PM CDT Office Visit [facility] [address] [place] [address] Niya Mcknight PA [address] [place] [address] Depression, unspecified depression type; Cigarette nicotine dependence without complication; Alcohol dependence with unspecified alcohol-induced disorder (HCC); IGGY (generalized anxiety disorder) Social History Tobacco Use Types Packs/Day Years Used Date Smoking Tobacco: Some Days Cigarettes Last attempted to quit: 01/22/2015 Smokeless Tobacco: Former Tobacco Cessation:Ready to Q uit: Not Asked Comments:Exposed to second hand smoke Alcohol Use [...] suspected to have Coronavirus/COVID-19? No / Unsure 04/07/2023 1:20 PM CDT documented as of this encounter Last Filed Vital Signs Vital Sign Reading Time Taken Comments Blood Pressure 156/86 04/07/2023 1:24 PM CDT Pulse 98 04/07/2023 1:24 PM CDT Temperature 36.8 ??C (98.2 ??F) 04/07/2023 1:24 PM CD T Respiratory Rate 18 04/07/2023 1:24 PM CDT Oxygen Saturation 97% 04/07/2023 1:24 PM CDT Inhaled Oxygen Concentration - - Weight 80.3 kg (177 lb) 04/07/2023 1:24 PM CDT Height 177.8 cm (5' 10 ) 04/07/2023 1:24 PM CDT Body Mass Index 25.4 04/07/2023 1:24 PM CDT documented in this encounter Patient Instructions * Attachments The following attachments cannot be sent through Care Everywhere. * Alcohol Dependence (E Commerce Strategist) (Albanian) * Generalized Anxiety Disorder (E Commerce Strategist) (Albanian) * How to Stop Smoking (Discharge Care) (Albanian) documented in this encounter Progress Notes * Niya Mcknight PA - 04/07/2023 1:15 PM CDT Images from the original note were not included. OFFICE NOTE Chief Complaint Patient presents with ??? Follow-up Here for 2 week follow up on hypertension. ??? Nicotine Dependence Wants to talk about getting on Wellbutrin to help him quit smoking. States he has been smoking somebecause his girlfriend smokes. ??? Alcohol Problem States he has been drinking some and is wanting to talk about getting on Naltrexone to keep him from drinking. SUBJECTIVE: HPI John Veliz is 52 y.o. year old male that presents for FOLLOW UP as noted above. Patient seen on March 12, 2023 for hypertension and general anxiety disorder. Treatment- added Toprol 12.5 mg daily.This was for beta-blockade to help with anxiety patient was to continue with counseling. Would be due for medication contract and drug screen at follow-up. Depression - Niya Mcknight PA 04/07/23 1336 Written Patient brings in note from Dr. Regis Tanner. Note states that patient complaining of hyper thinking & stress yet with mild depression. Dr. Tanner agrees with dysthymia believes that the hyper thinking is exacerbated by it. Recommending starting on Wellbutrin 75 mg daily if possible. Nicotine dependence - Niya Mcknight PA 04/07/23 1346 Written Started smoking at age 19 Up to 1/ PPD. Quit at 21. Then back on @ age 31. Quit again at age 44. Started back when last few months. Alcohol dependence (HCC) - Niya Mcknight PA 04/07/23 1356 Written Has used anabuse in the past but had trouble with the restrictions. Was changed to naltraone. [id number]. Started drinking in high school. Age 20. Quit at age 21. Started lifting wiehgts which helped. Mainly beer.Started back at age 26. Mainly beer.Currently 8 to 9 beers on the weekend. Doesn't want to go back to drinking like he did then. BP Readings from Last 3 Encounters: 04/07/23 (!) 156/86 03/10/23 (!) 130/92 01/25/23 104/82 CURRENT MEDICATIONS; Current Outpatient Medications on File [...] HPI Social History Tobacco Use Smoking Status Some Days ??? Packs/day: 1.00 ??? Types: Cigarettes ??? Last attempt to quit: 01/22/2015 ??? Years since quittin.2 Smokeless Tobacco Former Tobacco Comments Exposed to second hand smoke Immunization History Administered Date(s) Administered ??? Tdap 10/14/2013, 09/08/2022 OBJECT RITESH: Visit Vitals BP (!) 156/86 Pulse 98 Temp 98.2 ??F (36.8 ??C) (Tympanic) Resp 18 Ht 5' 10 Wt 177 lb (80.3 kg) SpO2 97% BMI 25.40 kg/m?? Smoking Status Some Days BSA 1.99 m?? Physical Exam Constitutional: Appearance: [...] Affect: Mood normal. Encounter Diagnoses Name Primary? Depression, unspecified depression type ??? Cigarette nicotine dependence without complication ??? Alcohol dependence with unspecified alcohol-induced disorder (HCC) ??? IGGY (generalized anxiety disorder) PLAN: TREATMENT - Depression - Niya Mcknight PA 04/19/23 1120 Edited Patient brings in note from Dr. Regis [...] once Anders had any issues. Patient will haveshort-term follow-up for recheck Nicotine dependence - Niya Mcknight PA 04/19/23 1120 Edited Started smoking at age 19 Up to 09/10 PPD. Quit at 21. Then back on @ age 31. Quit again at age 44. Started back when last few months. Add Wellbutrin. Patient given information on how to quit smoking. Have short-term follow-up. Alcohol dependence (HCC) - Niya Mcknight PA 04/19/23 1121 Edited Has used anabuse in the past but had trouble with the restrictions. Was changed to naltraone. [id number]. Started drinking in high school. Age 20. [...] not need additional medications for the alcohol. IGGY (generalized anxiety disorder) - Niya Mcknight PA 04/19/23 1122 Written Will continue with Xanax at this time. However hopefully will be able to discontinue with addition of Wellbutrin. Medications Discontinued During This Encounter Medication Reason ??? ALPRAZolam (XANAX) 0.5 MG tablet Reorder ??? metoprolol succinate (TOPROL XL) 25 MG XL tablet Reorder Orders Placed This Encounter Medications ??? buPROPion (WELLBUTRIN) 75 MG tablet Sig: Take 1 tablet (75 mg) by mouth daily for 30 days Dispense: 30 tablet Refill: 0 ??? ALPRAZolam (XANAX) 0.5 MG tablet Sig: Take 1 tablet (0.5 mg) by mouth 3 times daily as needed Dispense: 90 tablet Refill: 2 ??? metoprolol succinate (TOPROL XL) 25 MG XL tablet Sig: Take 0.5 tablets (12.5 mg) by mouth daily Dispense: 15 tablet Refill: 2 Return in about 1 month (around 05/08/2023), or with Dr Lyles. There are no Patient Instructions on file for this visit. JI Vasquez 04/19/2023 11:22 AM This welder plastic was electronically signed. It was dictated by use of voice recognition software and electronically transcribed. The welder plastic may contain errors not detected in proofreading. documented in this encounter Miscellaneous Notes * Assessment & Plan Note - Niya Mcknight PA - 04/19/2023 11:21 AM CDT Associated Problem(s): IGGY (generalized anxiety disorder) Will continue with Xanax at this time. However hopefully will be able to discontinue with addition of Wellbutrin. * Assessment & Plan Note - Niya Mcknight PA - 04/07/2023 1:46 PM CDT Associated Problem(s): Alcohol dependence Has used anabuse in the past but had trouble with the restrictions. Was changed to naltraone. [id number]. Started drinking in high school. Age 20. [...] not need additional medications for the alcohol. * Assessment & Plan Note - Niya Mcknight PA - 04/07/2023 1:44 PM CDT Associated Problem(s): Nicotine dependence Started smoking at age 19 Up to 1/5 PPD. Quit at 21. Then back on @ age 31. Quit again at age 44. Started back when last few months. Add Wellbutrin. Patient given information on how to quit smoking.Have short-term follow-up. * Assessment & Plan Note - Niya Mcknight PA - 04/07/2023 1:34 PM CDT Associated Problem(s): Depression Patient brings in note from Dr. Regis [...] once Anders had any issues. Patient will haveshort-term follow-up for recheck documented in this encounter Plan of Treatment Not on file documented as of this encounter Visit Diagnoses Diagnosis Depression, unspecified depression type Cigarette nicotine dependence without complication Tobacco use disorder Alcohol dependence with unspecified alcohol-induced disorder IGGY (generalized anxiety disorder) Generalized anxiety disorder documented in this encounter Care Teams Cable Television Line Technician Relationship Specialty Start Date End Date Niya Mcknight PA [address] [place] [id number] PCP - General Family Medicine 03/11/22 06/01/23 documented as of this encounter
--- OUTSIDE RECORDS SUMMARY | 2024-08-23 12:06 | XMS_ITS | Encounter Summary ---
Author Organization [facility] Address [address] [place] [address] Care Team Providers Care Architect Manager Name Role Phone Niya Mcknight Primary Care Provider [phone]- [phone] Encounter Details Date Type Department Care Team (Latest Contact Info) Description 10/17/2022 9:00 AM COSMETOLOGIST APPRENTICE Lab/X-Ray Only [facility] [address] [place] [address] Niya Mcknight PA [address] [place], [place] [id number] Testosterone deficiency; IGGY (generalized anxiety disorder); Dyslipidemia Social History Tobacco Use Types Packs/Day Years [...] Coronavirus/COVID-19? No / Unsure 10/17/2022 8:55 AM COSMETOLOGIST APPRENTICE documented as of this encounter Plan of Treatment Not on file documented as of this encounter Procedures Procedure Name Priority Date/Time Associated Diagnosis Comments TSH THIRD GENERATION Routine 10/17/2022 8:58 AM COSMETOLOGIST APPRENTICE IGGY (generalized anxiety disorder) VITAMIN D 25 HYDROXY Routine 10/17/2022 8:58 AM COSMETOLOGIST APPRENTICE Testosterone deficiency TOT TESTOSTERONE,MALE Routine 10/17/2022 8:58 AM COSMETOLOGIST APPRENTICE Testosterone deficiency TESTOSTERONE FREE (MALE) Routine 10/17/2022 8:58 AM COSMETOLOGIST APPRENTICE Testosterone deficiency CBC W AUTO DIFF Routine 10/17/2022 8:58 AM COSMETOLOGIST APPRENTICE IGGY (generalized anxiety disorder) Dyslipidemia T3 FREE Routine 10/17/2022 8:58 AM COSMETOLOGIST APPRENTICE IGGY (generalized anxiety disorder) T4 FREE Routine 10/17/2022 8:58 AM COSMETOLOGIST APPRENTICE IGGY (generalized anxiety disorder) LIPID PROFILE Routine 10/17/2022 8:58 AM COSMETOLOGIST APPRENTICE IGGY (generalized anxiety disorder) Dyslipidemia COMPREHENSIVE METABOLIC PANEL Routine 10/17/2022 8:58 AM COSMETOLOGIST APPRENTICE IGGY (generalized anxiety disorder) Dyslipidemia documented in this encounter Results * (ABNORMAL) LIPID PROFILE (10/17/2022 8:58 AM COSMETOLOGIST APPRENTICE) Cholesterol 187 0 - 200 MG/DL [facility] Triglycerides 208(H) <150 MG/DL [facility] HDL 62 23 - 92 MG/DL [facility] LDL Cholesterol 83 <130 MG/DL [facility] LDL/HDL Ratio 1.34 [facility] VLDL, Calc 42(H) 5 - 40 MG/DL [facility] LDL, High Risk RELATIVE [...] WILL FURTHER MODIFY THE RELATIVE RISK RATIO. [facility] Blood 10/17/2022 8:58 AM COSMETOLOGIST APPRENTICE 10/17/2022 9:03 AM COSMETOLOGIST APPRENTICE Niya WORKMAN CHEMISTRY ORDERABL ES Performing Organization Address City/State/[facility] Co de Phone Number [facility] [address] * (ABNORMAL) COMPREHENSIVE METABOLIC PANEL (10/17/2022 8:58 AM COSMETOLOGIST APPRENTICE) Glucose 96 74 - 109 MG/DL [facility] Blood Urea Nitrogen 7 7 - 25 MG/DL [facility] Creatinine 1.2 0.6 - 1.3 MG/DL [facility] Sodium 136 136 - 145 MMOL/L [facility] Potassium 3.1(L) 3.5 - 5.1 MMOL/L [facility] Chloride 94(L) 98 - 107 MMOL/L [facility] Co2 30 21 - 31 MMOL/L [facility] Calcium 10.0 8.6 - 10.3 MG/DL [facility] Protein Total 7.5 6.4 - 8.9 G/DL [facility] Albumin 4.6 3.5 - 5.7 G/DL [facility] A/G Ratio 1.6 0.8 - 2.0 [facility] Alkaline Phosphatase 91 34 - 104 U/L [facility] Alt (SGPT) 19 7 - 52 U/L [facility] AST(SGOT) 16 13 - 39 U/L [facility] Bilirubin, Total 1.7(H) 0.3 - 1.0 MG/DL [facility] GFR Comment IF PATIENT IS , MULTIPLY RESULT BY 1.16 [facility] Est GFR 70(L) >90 ML/MIN/1. 73sq.m [facility] Blood 10/17/2022 8:58 AM COSMETOLOGIST APPRENTICE 10/17/2022 9:03 AM COSMETOLOGIST APPRENTICE Niya WORKMAN CHEMISTRY ORDERABL ES [facility] [address] [place], [place] [address] * (ABNORMAL) CBC W AUTO DIFF (10/17/2022 8:58 AM COSMETOLOGIST APPRENTICE) White Blood Cell Count 7.3 4.8 - 9.6 THOUS/uL [facility] Red Blood Cell Count 5.36 4.33 - 5.59 MIL/uL [facility] Hemoglobin 17.6(H) 13.1 - 16.8 GM/DL [facility] Hematocrit 50.5(H) 38.8 - 49.0 % [facility] Mean Corpuscular Volume 94.2 82.7 - 94.4 FL [facility] Mean Corpuscular Hemoglobin 32.8(H) 27.7 - 32.6 PG [facility] Mean Corpuscular Hemoglobin Conc 34.9 32.4 - 35.7 G/DL [facility] Rdwcv 13.5 11.6 - 13.9 % [facility] Rdwsd 47.1(H) 36.0 - 46.1 [facility] Platelet Count 319 154 - 364 THOUS/uL [facility] Mean Platelet Volume 9.0 8.7 - 11.7 [facility] Nucleated Red Blood Cells 0.0 0.0 /100 WBC'S [facility] Abs NRBC 0.0 0.0 THOUS/uL [facility] Differential Type AUTO FE [facility] Neutrophils 68.2(H) 34.0 - 67.9 % [facility] Lymphs 18.2(L) 19.1 - 41.2 % [facility] Monocytes 10.8 6.1 - 12.3 % [facility] Eos 1.0 0.9 - 7.6 % [facility] Basos 1.1 0.2 - 1.5 % [facility] Neutrophils Absolute Count 5.0 2.7 - 5.8 THOUS/uL [facility] Lymphocytes Absolute Count 1.3 1.1 - 3.3 THOUS/uL [facility] Monocytes Absolute Count 0.8 0.4 - 0.9 THOUS/uL [facility] Eosinophils Absolute Count 0.1 0.1 - 0.6 THOUS/uL [facility] Basophils Absolute Count 0.1 0.0 - 0.1 THOUS/uL [facility] Imm Gran 0.7 0.2 - 0.9 % [facility] Abs Imm Gran 0.05 0.0 - 0.1 THOUS/uL [facility] Blood 10/17/2022 8:58 AM COSMETOLOGIST APPRENTICE 10/17/2022 9:03 AM COSMETOLOGIST APPRENTICE Niya WORKMAN HEMATOLOGY ORDERAB LES [facility] [address] [place] [address] * T3 FREE (10/17/2022 8:58 AM COSMETOLOGIST APPRENTICE) T3 Free 3.1 2.5 - 3.9 PG/ML [facility] Blood 10/17/2022 8:58 AM COSMETOLOGIST APPRENTICE 10/17/2022 9:03 AM COSMETOLOGIST APPRENTICE Niya WORKMAN CHEMISTRY ORDERABL ES [facility] [address] * T4 FREE (10/17/2022 8:58 AM COSMETOLOGIST APPRENTICE) Free T4 0.98 0.61 - 1.12 NG/DL [facility] Comment: 0.52-11.0 FEMALES, 1ST TRIMESTER 0.45-0.99 FEMALES, 2ND TRIMESTER 0.48-0.95 FEMALES, 3RD TRIMESTER Blood 10/17/2022 8:58 AM COSMETOLOGIST APPRENTICE 10/17/2022 9:03 AM COSMETOLOGIST APPRENTICE Niya WORKMAN CHEMISTRY ORDERABL ES Performing Organization Address [facility] Co de Phone Number [address] * VITAMIN D 25 HYDROXY (10/17/2022 8:58 AM COSMETOLOGIST APPRENTICE) Pathologist [facility] Vitamin D 25-Hydroxy 39.9 <20 Deficient 20-29 Insufficient 30-100 Sufficient >100 Upper Safety Limit 30.00 - 100.00 mg/dL [facility] 10/17/2022 8:58 AM COSMETOLOGIST APPRENTICE 10/17/2022 9:03 AM COSMETOLOGIST APPRENTICE Niya WORKMAN CHEMISTRY ORDERABL ES Performing Organization Address [facility] Co de Phone Number [facility] - [address] * TSH THIRD GENERATION (10/17/2022 8:58 AM COSMETOLOGIST APPRENTICE) Pathologist [facility] TSH 0.87 0.05-3.70 FEMALES, 1ST TRIMESTER 0.31-4.35 FEMALES, 2ND TRIMESTER 0.41-5.18 FEMALES, 3RD TRIMESTER 0.45 - 5.33 uIU/mL [facility] Blood 10/17/2022 8:58 AM COSMETOLOGIST APPRENTICE 10/17/2022 9:03 AM COSMETOLOGIST APPRENTICE Niya WORKMAN CHEMISTRY ORDERABL ES [facility] [address] [place] [address] * TESTOSTERONE FREE (MALE) (10/17/2022 8:58 AM COSMETOLOGIST APPRENTICE) Testosterone Free 76 47 - 244 pg/mL [email or web address] Comment: (NOTE) INTERPRETIVE INFORMATION: ??Testosterone, Free Calculation [...] Children, or Individuals on Testosterone-Suppressing Hormone Therapy) ([employer] test code [id number]). For individuals on testosterone hormone therapy, refer to cisgender male reference intervals. No reference intervals have been established for males younger than 14 years or for cisgender females. For a complete set of all established reference intervals, refer to [employer]/Tests/Pub/[id number]. Performed By: [facility] [employer] [address] [place] [address] Host/Hostess: Jeb Machuca MD, PhD Blood 10/17/2022 8:58 AM COSMETOLOGIST APPRENTICE 10/17/2022 9:03 AM COSMETOLOGIST APPRENTICE Niya WORKMAN LAB SEND OUT ORDER MELVIN Performing Organization Address [facility] Co de Phone Number [email or web address] [address] [place] [address], [facility] * TOT TESTOSTERONE,MALE (10/17/2022 8:58 AM COSMETOLOGIST APPRENTICE) Tot Testosterone ,Male 361 THE ACCESS TESTOSTERONE ASSAY IS PARAMAGNETIC PARTICLE, CHEMILUMINESCENT IMMUNOASSAY FOR THE QUANTITATIVE DETERMINATION OF TOTAL TESTOSTERONE LEVELS IN HUMAN SERUM USING THE [employer] IMMUNOASSAY SYSTEMS. THE ACCESS TESTOSTERONE ASSAY IS A COMPETITIVE BINDING IMMUNOENZYMATIC ASSAY. ??TESTOSTERONE TEST RESULTS FROM DIFFERENT MANUFACTURERS WILL VARY. RESULTS SHOULD BE INTERPRETED IN LIGHT OF TOTAL CLINICAL PRESENTATION OF THE PATIENT, INCLUDING SYMPTOMS, CLINICAL HISTORY, DATA FROM ADDITIONAL TESTS AND OTHER APPROPRIATE INFORMATION. 175.00 - 781.00 NG/DL [facility] 10/17/2022 8:58 AM COSMETOLOGIST APPRENTICE 10/17/2022 9:03 AM COSMETOLOGIST APPRENTICE Niya WORKMAN CHEMISTRY ORDERABL ES [facility] [address] documented in this encounter Visit Diagnoses Diagnosis Testosterone deficiency Other testicular hypofunction IGGY (generalized anxiety disorder) Generalized anxiety disorder Dyslipidemia Other and unspecified hyperlipidemia documented in this encounter Care Teams Architect Manager Relationship Specialty Start Date End Date Niya Mcknight PA [address] [place] [address] PCP - General Family Medicine 03/11/22 06/01/23 documented as of this encounter
--- OUTSIDE RECORDS SUMMARY | 2024-08-23 12:06 | XMS_ITS | Encounter Summary ---
Author Organization [facility] Address [address] [place] [address] Care Team Providers Care Pantograph Setter Name Role Phone Niya Mcknight Primary Care Provider +1- [phone] Reason for Visit * Reason Comments Rash Encounter Details Date Type Department Care Team ([facility] st Contact Info) Description 11/16/2022 1:10 PM CDT - 11/16/2022 1:45 PM CDT Emergency [facility] Emergency Department [address] [place] [address] John Polk MD [address] [place] [address] Herpes simplex (Primary Dx) Discharge Disposition: Home Social History [...] Sign Reading Time Taken Comments Blood Pressure 155/93 11/16/2022 1:15 PM CDT Pulse 89 11/16/2022 1:15 PM CDT Temperature 36.7 ??C (98 ??F) 11/16/2022 1:15 PM CDT Respiratory Rate 20 11/16/2022 1:15 PM CDT Oxygen Saturation 98% 11/16/2022 1:15 PM CDT Inhaled Oxygen Concentration - - Weight 76.2 kg (168 lb) 11/16/2022 1:15 PM CDT Height 177.8 cm (5' 10 ) 11/16/2022 1:15 PM CDT Body Mass Index 24.11 11/16/2022 1:15 PM CDT documented in this encounter Discharge Instructions * Discharge Instructions* John Polk MD - 11/16/2022 1:44 PM CDT Recheck if not better. * Attachments The following attachments cannot be sent through Care Everywhere. * Oral Herpes Infection (AfterCare(R) Instructions(ER/ED)) ([place] Verde[place]) documented in this encounter Medications at Time of Discharge Medication Sig Dispensed Refills Start Date End Date BD HYPODERMIC NEEDLE 18G X 1 MISC USE TO DRAW UP TESTOSTERONE 11/19/2020 Cholecalciferol (VITAMIN D PO) Take 5,000 Units by mouth daily omeprazole (PRILOSEC) 40 MG capsule Take 1 capsule (40 mg) by mouth as needed ALPRAZolam (XANAX) 0.5 MG tabletIndications:IGGY (generalized anxiety disorder) Take 1 tablet (0.5 mg) by mouth 3 times daily as needed 90 tablet 2 10/22/2022 12/21/2022 clomiPHENE (CLOMID) 50 MG tablet TAKE 1 TABLET BY MOUTH 3 TIMES WEEKLY 36 tablet 01/22/2022 01/25/2023 potassium chloride (K-DUR) 20 MEQ tablet Take 1 tablet (20 mEq) by mouth daily 90 tablet 10/22/2022 01/20/2023 tadalafil (CIALIS) 20 MG tabletIndications:Erec tile Dysfunction Take 1 tablet (20 mg) by mouth as needed for Erectile Dysfunction Indications: Erectile Dysfunction 90 tablet 09/21/2022 12/20/2022 testosterone cypionate (DEPO-TESTOSTERONE) 200 MG/ML injectionIndications:M mohan hypogonadism Inject 1 ml in large muscle every 12 days 10 mL 1 09/18/2021 01/25/2023 valACYclovir (VALTREX) 500 MG tablet Take 1 tablet (500 mg) by mouth 3 times daily for 10 days 30 tablet 11/16/2022 11/26/2022 documented as of this encounter ED Notes * Danilo Stack RN - 11/16/2022 1:48 PM CDT Patient discharged at this time. Patient education given on new script. Verbalized understanding atthis time. Walked out of ER without any distress noted at this time. * John Polk MD - 11/16/2022 1:21 PM CDT Images from the original note were not included. [facility] Emergency Room General Encounter CHIEF COMPLAINT Chief Complaint Patient presents with ??? Rash CALI Veliz is a 52 y.o. male who presents with recurrence of herpetic lesion on nose. Dematologist in the past Rx valtrex with success. : REVIEW OF SYSTEMS CONSTITUTIONAL: No complaints of [...] Medications: ??? ALPRAZolam (XANAX) 0.5 MG tablet, Take 1 tablet (0.5 mg) by mouth 3 times daily as needed, Disp: 90 tablet, Rfl: 2 ??? BD HYPODERMIC NEEDLE 18G X 1 MISC, USE TO DRAW UP TESTOSTERONE, Disp: , Rfl: ??? Cholecalciferol (VITAMIN D PO), Take 5,000 Units by mouth daily, Disp: , Rfl: ??? clomiPHENE (CLOMID) 50 MG tablet, TAKE 1 TABLET BY MOUTH 3 TIMES WEEKLY, Disp: 36 tablet, Rfl: 0 ??? omeprazole (PRILOSEC) 40 MG capsule, Take 1 capsule (40 mg) by mouth as needed, Disp: , Rfl: ??? potassium chloride (K-DUR) 20 MEQ tablet, Take 1 tablet (20 mEq) by mouth daily, Disp: 90 tablet, Rfl: 0 ??? tadalafil (CIALIS) 20 MG tablet, Take 1 tablet (20 mg) by mouth as needed for Erectile Dysfunction Indications: Erectile Dysfunction, Disp: 90 tablet, Rfl: 0 ??? testosterone cypionate (DEPO-TESTOSTERONE) 200 MG/ML injection, Inject 1 ml in large muscle every 12 days, Disp: 10 mL, Rfl: 1 ??? valACYclovir (VALTREX) 500 MG tablet, Take 1 tablet (500 mg) by mouth 3 times daily for 10 days, Disp: 30 tablet, Rfl: 0 ALLERGIES Allergies Allergen Reactions ??? Codeine Itching Pt states he feels hot, itchy, and he vomits. PHYSICAL EXAM VITAL SIGNS: ED Triage Vitals [11/16/22 1315] Temp Temp src Pulse Resp BP SpO2 98 ??F (36.7 ??C) Tympanic 89 20 (!) 155/93 98 % -- Visit Vitals BP (!) 155/93 Pulse 89 Temp 98 ??F (36.7 ??C) (Tympanic) Resp 20 Ht 5' 10 Wt 168 lb (76.2 kg) SpO2 98% BMI 24.11 kg/m?? Smoking Status Former BSA 1.94 m?? Constitutional: Well developed. Well nourished. Alert. HEENT: Normocephalic. Atraumatic. Oropharynx clear. Bilateral external ears normal. Oropharynx moist. Uvula in the midline position. Nose inflamed with small vesicle noted, no drainage. Eyes: PERRLA. EOMI. Conjunctiva normal. No discharge. [...] No edema. No tenderness. No deformities noted. Neurologic: Alert & appropriate. Normal motor function. Normal sensory function. No focal deficits noted. Cranial nerves intact. Speech is clear. No orders to display COURSE & MEDICAL DECISION MAKING No results found for this or any previous visit (from the past 24 hour(s)). Old charts were reviewed per [facility] EMR. Pertinent details are summarized above. All laboratory, radiologic, and EKG studies that were performed in the Emergency Department were a necessary part of the evaluation needed to exclude unstable or emergent medical conditions. Herpetic lesion on nose, recurrent. Patient was hemodynamically and neurologically stable in the ED. Pertinent studies were reviewed as above. The patient received: Medications - No data to display I have reviewed the patient???s prescription history via a prescription monitoring program. This information is consistent with my knowledge of the patient???s controlled substance use history. FINAL IMPRESSION ICD-10-CM ICD-9-CM 1. Herpes simplex B00.9 054.9 Final Disposition Discharge MD John Medellin MD 11/17/22 0659 documented in this encounter Miscellaneous Notes * Triage Assessment - Danilo Stack RN - 11/16/2022 1:18 PM CDT Has hx of herpes rash to his nose and he gets it once yearly. Has been on Valtrex in the past and it helps. It is painful and slight red rash to his nose across the bridge. Slight swollen as well. Started to flare up on Wednesday. documented in this encounter Plan of Treatment Not on file documented as of this encounter Visit Diagnoses Diagnosis Herpes simplex- Primary Herpes simplex without mention of complication documented in this encounter Care Teams Pantograph Setter Relationship Specialty Start Date End Date Niya Mcknight PA [address] [place] [address] PCP - General Family Medicine 03/11/22 06/01/23 documented as of this encounter
--- OUTSIDE RECORDS SUMMARY | 2024-08-23 12:06 | XMS_ITS | Encounter Summary ---
Author Organization [facility] Address [address] [place] [address] Care Team Providers Care Environmental Health Safety Manager Name Role Phone Niya Mcknight Primary Care Provider +1- [phone] Encounter Details Date Type Department Care Team (Late st Contact Info) Description 01/11/2023 Orders Only [facility] [address] [place] [address] Hi Deluna MD [address] [place] [address] Male hypogonadism (Primary Dx) Social History [...] on file documented as of this encounter Progress Notes * Hi Deluna MD - 01/11/2023 12:04 PM CDT Per patient call, he wants us to renew testosterone as his PCP will no longer prescribe it. In order for us to prescribe for his TRT, he will need some additional labs in addition to the labs he had drawn in October and get scheduled for another in-office visit to discuss risks and benefits in detail and perform a МАРИЯ. documented in this encounter Plan of Treatment Not on file documented as of this encounter Results * (ABNORMAL) CBC W AUTO DIFF (01/16/2023 9:58 AM CDT) White Blood Cell Count 5.5 4.8 - 9.6 THOUS/uL [facility] Red Blood Cell Count 5.06 4.33 - 5.59 MIL/uL [facility] Hemoglobin 16.1 13.1 - 16.8 GM/DL [facility] Hematocrit 47.0 38.8 - 49.0 % [facility] Mean Corpuscular Volume 92.9 82.7 - 94.4 FL [facility] Mean Corpuscular Hemoglobin 31.8 27.7 - 32.6 PG [facility] Mean Corpuscular Hemoglobin Conc 34.3 32.4 - 35.7 G/DL [facility] Rdwcv 12.4 11.6 - 13.9 % [facility] Rdwsd 42.5 36.0 - 46.1 [facility] Platelet Count 291 154 - 364 THOUS/uL [facility] Mean Platelet Volume 9.3 8.7 - 11.7 [facility] Differential Type AUTO FE [facility] Neutrophils 69.1(H) 34.0 - 67.9 % [facility] Lymphs 19.1 19.1 - 41.2 % [facility] Monocytes 9.7 6.1 - 12.3 % [facility] Eos 0.7(L) 0.9 - 7.6 % [facility] Basos 0.7 0.2 - 1.5 % [facility] Neutrophils Absolute Count 3.8 2.7 - 5.8 THOUS/uL [facility] Lymphocytes Absolute Count 1.1 1.1 - 3.3 THOUS/uL [facility] Monocytes Absolute Count 0.5 0.4 - 0.9 THOUS/uL [facility] Eosinophils Absolute Count 0.0(L) 0.1 - 0.6 THOUS/uL [facility] Basophils Absolute Count 0.0 0.0 - 0.1 THOUS/uL [facility] Imm Gran 0.7 0.2 - 0.9 % [facility] Abs Imm Gran 0.04 0.0 - 0.1 THOUS/uL [facility] Blood 01/16/2023 9:58 AM CDT 01/16/2023 10:03 AM CDT Hi Deluna MD HEMATOLOGY OR DERABLES Performing Organization Address City/[facility]/ZIP Co de Phone Number [facility] [address] [place] [address] * PSA TOTAL, SCREEN (01/16/2023 9:58 AM CDT) Prostate Specific Antigen Total 0.61 0 - 4.00 NG/ML [facility] PSA Comment SEE NOTES [facility] Comment: The Access Hybritech PSA assay is a paramagnetic particle, chemiluminescent immunoassay for the quantitative determination of prostate specific antigen (PSA) levels in human serum using the Access Immunoassay Systems. Blood 01/16/2023 9:58 AM CDT 01/16/2023 10:03 AM CDT Hi Deluna MD CHEMISTRY ORD ERABLES [facility] [address] [place] [address] documented in this encounter Visit Diagnoses Diagnosis Male hypogonadism- Primary Other testicular hypofunction documented in this encounter Care Teams Environmental Health Safety Manager Relationship Specialty Start Date End Date Niya Mcknight PA [address] [place] [address] PCP - General Family Medicine 03/11/22 06/01/23 documented as of this encounter
--- OUTSIDE RECORDS SUMMARY | 2024-08-23 12:06 | XMS_ITS | Encounter Summary ---
Author Organization [facility] Address [address] [place] [address] Care Team Providers Care Legal Word Processor Name Role Phone Niya Mcknight Primary Care Provider +1- [phone] Reason for Visit * Reason Onset Date Comments Results 01/20/2023 Lab Encounter Details Date Type Department Care Team ([facility] st Contact Info) Description 01/20/2023 Telephone [facility] [address] [place] [address] Mandy Lyles DO [address] [place] [address] Results (Lab) Social History Tobacco Use Types Packs/Day Years [...] encounter Miscellaneous Notes * Telephone Encounter - Elba Patricio RN - 01/20/2023 7:33 AM CDT Notified. * Telephone Encounter - Elba Patricio RN - 01/20/2023 7:33 AM CDT ----- Message from Mandy Lyles DO sent at 01/19/2023 7:33 PM CDT ----- BMP, CBC, and PSA are essentially normal. documented in this encounter Plan of Treatment Not on file documented as of this encounter Visit Diagnoses Not on filedocumented in this encounter Care Teams Legal Word Processor Relationship Specialty [place] [address] [place] [id number] PCP - General Family Medicine 03/11/22 06/01/23 documented as of this encounter
--- OUTSIDE RECORDS SUMMARY | 2024-08-23 12:07 | XMS_ITS | Encounter Summary ---
Author Organization [facility] Address [address] [place] [address] Care Team Providers Care Casting Machine Operator Helper Name Role Phone Cody Simms Primary Care Provider +1 [phone] Reason for Visit * Reason Comments Follow-up on depression lexapr o is not working Dizziness Encounter Details Date Type Department Care Team (Late st Contact Info) Description 09/18/2021 3:30 PM ROLL TENSION TESTER Office Visit [facility] [address] [place] [address] Cody Simms PA [address] [place] [address] Dizziness (Primary Dx); GIGY (generalized anxiety disorder); Male hypogonadism Social History Tobacco Use Types Packs/Day Years Used Date Smoking Tobacco: Former Cigarettes Q uit: 01/22/2015 Smokeless Tobacco: Former Alcohol Use Standard Drinks/Week Comments Yes 0 (1 standard drink = 0.6 oz pur e alcohol) occasional Alcohol Use Answer Date Recorded Frequency of Alcohol Consumption Not on file 05/25/2020 Average Number of Drinks Not on file 020 Frequency of Binge Drinking Not on file 05/07 Alcohol Use Status Yes 05/25/2020 Average alcohol consumption Not on file 05/07 Sex and Gender Information Value Date Recorded Sex Assigned at Not on file Gender Identity Not on file Sexual Orientation Not on file COVID-19 Exposure Response Date Recorded In the last month, have you been in contact with someone who was confirmed or suspected to have Coronavirus / COVID-19? No / Unsure 09/17/2021 10:15 AM ROLL TENSION TESTER documented as of this encounter Last Filed Vital Signs Vital Sign Reading Time Taken Comments Blood Pressure 130/80 09/18/2021 3:37 PM ROLL TENSION TESTER Pulse 82 09/18/2021 3:37 PM ROLL TENSION TESTER Temperature 36.5 ??C (97.7 ??F) 09/18/2021 3:37 PM CS T Respiratory Rate 16 09/18/2021 3:37 PM ROLL TENSION TESTER Oxygen Saturation 99% 09/18/2021 3:37 PM ROLL TENSION TESTER Inhaled Oxygen Concentration - - Weight 79.4 kg (175 lb) 09/18/2021 3:37 PM ROLL TENSION TESTER Height 177.8 cm (5' 10 ) 09/18/2021 3:37 PM ROLL TENSION TESTER Body Mass Index 25.11 09/18/2021 3:37 PM ROLL TENSION TESTER documented in this encounter Progress Notes * Cody Simms PA - 09/18/2021 3:30 PM CST CHIEF COMPLAINT: Chief Complaint Patient presents with ??? Follow-up on depression lexapro is not working ??? Dizziness SUBJECTIVE: He presents today for follow-up on multiple issues the first of which is testosterone replacement which she does need refills on. He is also here for follow-up on depression/anxiety which he was started by a colleague of sean on Lexapro 10 mg he stated that it did not help and he is requesting an increase in Xanax as that does help with his anxiety. In the interim he has seen another doctor for anxiety and was placed on 7.5 b.i.d. BuSpar which he states is not helping either. Third complaint dom has been dizzy. He has been using Flonase and Sudafed without much relief. ROS: Remainder of a 10 point review of systems is negative other than above PROBLEM LIST: Patient Active Problem List Diagnosis Code ??? IGGY (generalized anxiety disorder) F41.1 ??? Hyperglycemia R73.9 ??? Family history of diabetes mellitus Z83.3 ??? Dyslipidemia E78.5 ??? Hypovitaminosis D E55.9 ??? Azotemia R79.89 ??? Male hypogonadism E29.1 MEDICATIONS Current Outpatient Medications on File Prior to Visit Medication Sig Dispense Refill ??? [DISCONTINUED] ALPRAZolam (XANAX) 0.5 MG tablet TAKE ONE TABLET BY MOUTH THREE TIMES DAILY NEEDED 90 tablet 2 ??? BD HYPODERMIC NEEDLE 18G X 1 MISC USE TO DRAW UP TESTOSTERONE ??? Cholecalciferol (VITAMIN D PO) Take 5,000 Units by mouth daily ??? clomiPHENE (CLOMID) 50 MG tablet TAKE 1 TABLET BY MOUTH 3 TIMES WEEKLY 36 tablet 0 ??? omeprazole (PRILOSEC) 40 MG capsule Take 40 mg by mouth as needed ??? [DISCONTINUED] testosterone cypionate (DEPO-TESTOSTERONE) 200 MG/ML injection INJECT 1ML INTO ALARGE MUSCLE EVERY 12 DAYS 10 mL 1 No current facility-administered medications on file prior to visit. ALLERGIES: Allergies Allergen Reactions ??? Codeine Itching Pt states he feels hot, itchy, and he vomits. PHYSICAL EXAM: VITALS: Vitals: 09/18/21 1537 BP: 130/80 Pulse: 82 Resp: 16 Temp: 97.7 ??F (36.5 ??C) TempSrc: Tympanic SpO2: 99% Weight: 175 lb (79.4 kg) Height: 5' 10 Constitutional: Body mass index is 25.11 kg/m??., No acute distress, Non-toxic appearance. HEENT: Normocephalic, Atraumatic, Bilateral external ears normal, Oropharynx moist, TMs are bulgingwith serous fluid indicative of eustachian tube dysfunction Cardiovascular: Normal heart rate, Normal rhythm, No murmurs, No rubs, No gallops. Thorax & Lungs: Normal breath sounds, No respiratory distress, No wheezing, No chest tenderness. Abdomen: Soft, Non tender, No guarding, No masses, Normal bowel sounds Extremities: Intact distal pulses, No edema, Neurologic: grossly intact ASSESMENT & PLAN: Generalized anxiety disorder-we will increase the Lexapro to 20 mg daily increase the BuSpar to 15 mg b.i.d. and refill the Xanax as previously prescribed. I would like him to try this for 90 days and then follow-up. Dizziness-I recommended the continued use of Flonase and Valsalva maneuvers to open the eustachian tubes bilaterally. Male hypogonadism-we did refill testosterone as previously prescribed. Final Diagnosis: Encounter Diagnoses Code Name Primary? R42 Dizziness Yes ??? F41.1 IGGY (generalized anxiety disorder) ??? E29.1 Male hypogonadism Visit Orders: No orders of the defined types were placed in this encounter. DISCHARGE MEDS: Outpatient Encounter Medications as of 09/18/2021 Medication Sig Dispense Refill ??? ALPRAZolam (XANAX) 0.5 MG tablet Take 1 tablet (0.5 mg) by mouth 3 times daily as needed 90 tablet 2 ??? [DISCONTINUED] ALPRAZolam (XANAX) 0.5 MG tablet TAKE ONE TABLET BY MOUTH THREE TIMES DAILY NEEDED 90 tablet 2 ??? BD HYPODERMIC NEEDLE 18G X 1 MISC USE TO DRAW UP TESTOSTERONE ??? busPIRone (BUSPAR) 7.5 MG tablet Take 2 tablets (15 mg) by mouth 2 times daily for 30 days 120 tablet 2 ??? Cholecalciferol (VITAMIN D PO) Take 5,000 Units by mouth daily ??? clomiPHENE (CLOMID) 50 MG tablet TAKE 1 TABLET BY MOUTH 3 TIMES WEEKLY 36 tablet 0 ??? escitalopram (LEXAPRO) 10 MG tablet Take 2 tablets (20 mg) by mouth daily for 30 days 60 tablet2 ??? omeprazole (PRILOSEC) 40 MG capsule Take 40 mg by mouth as needed ??? tadalafil (CIALIS) 20 MG tablet Take 1 tablet (20 mg) by mouth as needed for Erectile Dysfunction 90 tablet 0 ??? testosterone cypionate (DEPO-TESTOSTERONE) 200 MG/ML injection Inject 1 ml in large muscle every 12 days 10 mL 1 ??? [DISCONTINUED] testosterone cypionate (DEPO-TESTOSTERONE) 200 MG/ML injection INJECT 1ML INTO ALARGE MUSCLE EVERY 12 DAYS 10 mL 1 No facility-administered encounter medications on file as of 09/18/2021. 1. The patient indicates understanding of these issues and agrees with the plan. 2. The patient is given an After Visit Summary sheet that lists all of their medications with directions, their allergies, orders placed during this encounter, immunization dates, and follow- up instructions. 3. I reviewed the patient's medical information and medical history 4. I reconciled the patient's medication list and prepared and supplied needed refills. 5. I have reviewed the past medical, family, and social history sections including the medications and allergies listed in the above medical record TENSION TESTER documented in this encounter Plan of Treatment Not on file documented as of this encounter Visit Diagnoses Diagnosis Dizziness- Primary Dizziness and giddiness IGGY (generalized anxiety disorder) Generalized anxiety disorder Male hypogonadism Other testicular hypofunction documented in this encounter Care Teams Casting Machine Operator Helper Relationship Specialty Start Date End Date Cody Simms PA [address] [place] [id number] PCP - General Physician Preservationist 10/24/18 03/10/22 documented as of this encounter
--- OUTSIDE RECORDS SUMMARY | 2024-08-23 12:07 | XMS_ITS | Encounter Summary ---
Author Organization [facility] Address [address] [place] [address] Care Team Providers Care Flow Match Sofa Cutter Name Role Phone Cody Simms Primary Care Provider +1 [phone] Reason for Visit * Reason Comments Medication Refill Encounter Details Date Type Department Care Team ([facility] st Contact Info) Description 12/18/2021 Refill [facility] [address] [place] [address] Cody Simms PA [address] [place] [address] Medication Refill Social History Tobacco Use Types [...] suspected to have Coronavirus/COVID-19? No / Unsure 12/09/2021 11:13 AM CDT documented as of this encounter Plan of Treatment Not on file documented as of this encounter Visit Diagnoses Diagnosis IGGY (generalized anxiety disorder) Generalized anxiety disorder documented in this encounter Care Teams Flow Match Sofa Cutter Relationship Specialty Start Date End Date Cody Simms PA [address] [place] [id number] PCP - General Physician Parts Department Supervisor 10/24/18 03/10/22 documented as of this encounter
--- OUTSIDE RECORDS SUMMARY | 2024-08-23 12:07 | XMS_ITS | Encounter Summary ---
Author Organization [facility] Address [address] [place] [address] Care Team Providers Care Corrosion Control Specialist Name Role Phone Cody Simms Primary Care Provider [phone] Encounter Details Date Type Department Care Team (Latest Contact Info) Description 07/19/2021 8:40 AM DIRECTOR BEHAVIORAL HEALTH Lab/X-Ray Only [facility] Lab [address] [place] [phone] Cody Simms PA [address] [place], [place] [id number] Long-term current use of testosterone replacement therapy; Dyslipidemia; Medication management Social History Tobacco Use Types Packs/Day Years [...] have Coronavirus / COVID-19? No / Unsure 07/19/2021 8:43 AM DIRECTOR BEHAVIORAL HEALTH documented as of this encounter Plan of Treatment Not on file documented as of this encounter Procedures Procedure Name Priority Date/Time Associated Diagnosis Comments TESTOS FREE/TOT ADULT MALE Routine 07/19/2021 8:45 AM DIRECTOR BEHAVIORAL HEALTH Long-term current use of testosterone replacement therapy CBC W AUTO DIFF Routine 07/19/2021 8:45 AM DIRECTOR BEHAVIORAL HEALTH Medication management LIPID PROFILE Routine 07/19/2021 8:45 AM DIRECTOR BEHAVIORAL HEALTH Dyslipidemia COMPREHENSIVE METABOLIC PANEL Routine 07/19/2021 8:45 AM DIRECTOR BEHAVIORAL HEALTH Medication management documented in this encounter Results * (ABNORMAL) COMPREHENSIVE METABOLIC PANEL (07/19/2021 8:45 AM DIRECTOR BEHAVIORAL HEALTH) Glucose 97 65 - 100 MG/DL [facility] Blood Urea Nitrogen 16 7 - 18 MG/DL [facility] Creatinine 1.2 0.7 - 1.3 MG/DL [facility] Sodium 131(L) 136 - 145 MMOL/L [facility] Potassium 4.0 3.5 - 5.1 MMOL/L [facility] Chloride 94(L) 98 - 107 MMOL/L [facility] Co2 29 21 - 32 MMOL/L [facility] Calcium 8.5 8.5 - 10.1 MG/DL [facility] Protein Total 7.0 6.4 - 8.2 G/DL [facility] Albumin 3.8 3.4 - 5.0 G/DL [facility] A/G Ratio 1.2 0.8 - 2.0 [facility] Alkaline Phosphatase 75 46 - 116 U/L [facility] Alt (SGPT) 39 16 - 63 U/L [facility] AST(SGOT) 19 15 - 37 U/L [facility] Bilirubin, Total 1.1(H) 0.2 - 1.0 MG/DL [facility] GFR Comment IF PATIENT IS , MULTIPLY RESULT BY 1.16 [facility] Est GFR 71(L) >90 ML/MIN/1. 73sq.m [facility] Blood 07/19/2021 8:45 AM DIRECTOR BEHAVIORAL HEALTH 07/19/2021 8:47 AM DIRECTOR BEHAVIORAL HEALTH Cody WORKMAN CHEMISTRY ORDERABLE S [facility] [address] [place] [address], [facility] * (ABNORMAL) CBC W AUTO DIFF (07/19/2021 8:45 AM DIRECTOR BEHAVIORAL HEALTH) Pathologist [facility] White Blood Cell Count 5.9 4.8 - 9.6 THOUS/uL [facility] Red Blood Cell Count 5.06 4.33 - 5.59 MIL/uL [facility] Hemoglobin 15.8 13.1 - 16.8 GM/DL [facility] Hematocrit 46.1 38.8 - 49.0 % [facility] Mean Corpuscular Volume 91.1 82.7 - 94.4 [facility] Mean Corpuscular Hemoglobin 31.2 27.7 - 32.6 PG [facility] Mean Corpuscular Hemoglobin Conc 34.3 32.4 - 35.7 G/DL [facility] Rdwcv 12.7 11.6 - 13.9 % [facility] Rdwsd 42.4 36.0 - 46.1 [facility] Platelet Count 293 154 - 364 THOUS/uL [facility] Mean Platelet Volume 9.9 8.7 - 11.7 [facility] Nucleated Red Blood Cells 0.0 0.0 /100 WBC'S [facility] Abs NRBC 0.0 0.0 THOUS/uL [facility] Differential Type AUTO FE [facility] Neutrophils 72.6(H) 34.0 - 67.9 % [facility] Lymphs 18.0(L) 19.1 - 41.2 % [facility] Monocytes 7.5 6.1 - 12.3 % [facility] Eos 0.5(L) 0.9 - 7.6 % [facility] Basos 0.9 0.2 - 1.5 % [facility] Neutrophils Absolute Count 4.3 2.7 - 5.8 THOUS/uL [facility] Lymphocytes Absolute Count 1.1 1.1 - 3.3 THOUS/uL [facility] Monocytes Absolute Count 0.4 0.4 - 0.9 THOUS/uL [facility] Eosinophils Absolute Count 0.0(L) 0.1 - 0.6 THOUS/uL [facility] Basophils Absolute Count 0.1 0.0 - 0.1 THOUS/uL [facility] Imm Gran 0.5 0.2 - 0.9 % [facility] Abs Imm Gran 0.03 0.0 - 0.1 THOUS/uL [facility] Blood 07/19/2021 8:45 AM DIRECTOR BEHAVIORAL HEALTH 07/19/2021 8:47 AM DIRECTOR BEHAVIORAL HEALTH Cody WORKMAN HEMATOLOGY ORDERABL ES Performing Organization Address City/[facility]/ZIP Co de Phone Number [facility] [address] [place] [address] * (ABNORMAL) LIPID PROFILE (07/19/2021 8:45 AM DIRECTOR BEHAVIORAL HEALTH) Cholesterol 177 0 - 200 MG/DL [facility] Triglycerides 100 0 - 150 MG/DL [facility] HDL 41 40 - 60 MG/DL [facility] LDL Cholesterol 116(H) 0 - 100 MG/DL [facility] LDL/HDL Ratio 2.83 [facility] VLDL, Calc 20 0 - 35 MG/DL [facility] Blood 07/19/2021 8:45 AM DIRECTOR BEHAVIORAL HEALTH 07/19/2021 8:47 AM DIRECTOR BEHAVIORAL HEALTH Cody WORKMAN CHEMISTRY ORDERABLE S Performing Organization Address City/[facility]/ZIP Co de Phone Number [facility] [address] [place] [address] * TESTOS FREE/TOT ADULT MALE (07/19/2021 8:45 AM DIRECTOR BEHAVIORAL HEALTH) Total Testosterone 343 300 - 890 ng/dL [employer] [facility] Comment: (NOTE) REFERENCE INTERVAL: Testosterone, Adult Male Access complete set of age- and/or gender-specific reference intervals for this test in the [facility] Directory ([employer]). Testosterone Free 67 47 - 244 pg/mL [employer] Comment: (NOTE) INTERPRETIVE INFORMATION: ??Testosterone, Free Joel Stage IV ?35 - 169 pg/mL Joel Stage V ? 41 - 239 pg/mL The concentration of Free Testosterone is derived from a mathematical expression based on the constant for the binding of testosterone to Sex Hormone Binding Globulin (SHBG). Access complete set of age- and/or gender-specific reference intervals for this test in the [facility] Test Directory ([employer]). Sex Hormone Binding Globulin 29 (NOTE) REFERENCE INTERVAL: Sex Hormone Binding Globulin Access complete set of age- and/or gender-specif ic reference ??intervals for this test in the [facility] Directory ?? ([employer]) . 11 - 80 nmol/L [facility] Testosterone Free Percent 1.9 1.6 - 2.9 % [employer] Comment: (NOTE) Performed By: [email or web address] [address] [place] [address] Mobile Ui Developer: Kacy Lewis MD Blood 07/19/2021 8:45 AM DIRECTOR BEHAVIORAL HEALTH 07/19/2021 8:47 AM DIRECTOR BEHAVIORAL HEALTH Cody WORKMAN LAB SEND OUT MALACHIA MAGDALENA [employer] [address] documented in this encounter Visit Diagnoses Diagnosis Long-term current use of testosterone replacement therapy Dyslipidemia Other and unspecified hyperlipidemia Medication management Encounter for long-term (current) use of other medications documented in this encounter Care Teams Corrosion Control Specialist Relationship Specialty Start Date End Date Cody Simms PA [address] [place] [address] PCP - General Physician Community Health Director 10/24/18 03/10/22 documented as of this encounter
--- OUTSIDE RECORDS SUMMARY | 2024-08-23 12:07 | XMS_ITS | Encounter Summary ---
Author Organization [facility] Address [address] [place] [address] Care Team Providers Care Tow Truck Operator Name Role Phone Cody Simms Primary Care Provider [phone]- [phone] Reason for Visit * Reason Comments Medication Refill Encounter Details Date Type Department Care Team ([facility] st Contact Info) Description 08/12/2021 Refill [facility] [address] [place] [address] Frankie Morales MD [address] [place] [address] Medication Refill Social History Tobacco Use Types [...] Diagnosis Long-term current use of testosterone replacement therapy- Primary documented in this encounter Care Teams Tow Truck Operator Relationship Specialty Start Date End Date Cody Simms PA [address] [place] [address] PCP - General Physician Seed Buyer 10/24/18 03/10/22 documented as of this encounter
--- OUTSIDE RECORDS SUMMARY | 2024-08-23 12:07 | XMS_ITS | Encounter Summary ---
Author Organization [facility] Address [address] [place] [address] Care Team Providers Care Slot Operations Director Name Role Phone Cody Simms Primary Care Provider [phone]- [phone] Reason for Visit * Reason Comments Medication Refill Encounter Details Date Type Department Care Team (Late st Contact Info) Description 08/12/2021 Refill [facility] Medicine [address] [address] [place] [address] Galen Jones, [address] [address] [place] [address] Medication Refill Social History Tobacco Use Types [...] encounter Miscellaneous Notes * Telephone Encounter - Anna Thomas LPN - 08/13/2021 9:27 AM CST Refill request DENTIAL INSURANCE INSPECTOR documented in this encounter Plan of Treatment Not on file documented as of this encounter Visit Diagnoses Diagnosis Male hypogonadism Other testicular hypofunction documented in this encounter Care Teams Slot Operations Director Relationship Specialty Start Date End Date Cody Simms PA [address] [place] [address] PCP - General Physician Incident Analyst 10/24/18 03/10/22 documented as of this encounter
--- OUTSIDE RECORDS SUMMARY | 2024-08-23 12:07 | XMS_ITS | Encounter Summary ---
Author Organization [facility] Address [address] [place] [address] Care Team Providers Care Direct Marketing Executive Name Role Phone Cody Simms Primary Care Provider [phone] Reason for Visit * Reason Comments Establish Care Here to establish ca re. Was seeing Cody Simms. Requesting medication refills. Encounter Details Date Type Department Care Team (Late st Contact Info) Description 12/10/2021 2:00 PM CDT Office Visit [address] [phone] Niya Mcknight PA [address] [place] [address] IGGY (generalized anxiety disorder) (Primary Dx); Dyslipidemia; Encounter to establish care; Male hypogonadism Social History Tobacco Use Types [...] Sign Reading Time Taken Comments Blood Pressure 126/86 12/10/2021 2:10 PM CDT Pulse 87 12/10/2021 2:10 PM CDT Temperature 36.5 ??C (97.7 ??F) 12/10/2021 2:10 PM CD T Respiratory Rate 18 12/10/2021 2:10 PM CDT Oxygen Saturation 96% 12/10/2021 2:10 PM CDT Inhaled Oxygen Concentration - - Weight 88.9 kg (196 lb) 12/10/2021 2:10 PM CDT Height 177.8 cm (5' 10 ) 12/10/2021 2:10 PM CDT Body Mass Index 28.12 12/10/2021 2:10 PM CDT documented in this encounter Progress Notes * Niya Mcknight PA - 12/10/2021 2:00 PM CDT Images from the original note were not included. Chief Complaint Patient presents with ??? Establish Care Here to establish care. Was seeing Cody Simms. Requesting medication refills. SUBJECTIVE: John Veliz is a 51 y.o. male who presents for yearly wellness exam. Medical, surgical, family and social history were reviewed with patient. Last PSA 10/07/2020 Results 0.55. Last МАРИЯ na. Last colonoscopy na. Concerns today comes to establish care as his PCP is no longer at facility.. Male hypogonadism - JI Vasquez 12/10/21 1523 Edited Was diagnosed with low testosterone in [facility] in 2018. Has been adjusted over time is now injecting jose r 12 days. Dyslipidemia - JI Vasquez 12/10/21 1524 Written Controlling with diet and exercise. Last 3 Lipid Profile ValuesRecent Labs Lab 07/19/21 0845 12/30/19 0836 09/09/19 0841 CHOL 177 213* 199 TRIG 100 275* 208* HDL 41 31* 29* LDLCALC 116* 127* 128* IGGY (generalized anxiety disorder) - JI Vasquez 12/18/21 1032 Edited Currently on Lexapro 10 mg daily. And xanax 0.5 mg TID and BuSpar 7.5 b.i.d. prn # 90 per month. Patient states that he currently does not need a refill. Denies any suicide ideation. Denies any overtpanic attacks. States he is doing well on current medication regimen. COURTROOM DEPUTY OR CALENDAR CLERK reviewed low risk with noconcerned Current Outpatient Medications on File Prior to [...] file prior to visit. Review of Systems Past Medical History: Diagnosis Date ??? Anxiety ??? Depression (disease) ??? Low testosterone in male Past Surgical History: Procedure Laterality Date ??? SHOULDER SURGERY 2002 left Social History Socioeconomic History ??? Marital status: Spouse name: Not on file ??? Number of children: Not on file ??? Years of education: Not on file ??? Highest education level: Not on file Occupational History ??? Not on file Tobacco Use ??? Smoking status: Former Smoker Packs/day: 1.00 Types: Cigarettes Quit date: 01/22/2015 Years since quittin.9 ??? Smokeless tobacco: Former User Substance and Sexual Activity ??? Alcohol use: Yes Comment: occasional ??? Drug use: No ??? Sexual activity: Not on file Other Topics Concern ??? Not on file Social History Narrative ??? Not on file Family History Problem Relation Age of Onset ??? Depression Mother ??? Depression Father ??? Alcohol Abuse Paternal Uncle Immunization History Administered Date(s) Administered ??? Tdap 10/14/2013 OBJECTIVE: Visit Vitals BP 126/86 Pulse 87 Temp 97.7 ??F (36.5 ??C) (Tympanic) Resp 18 Ht 5' 10 Wt 196 lb (88.9 kg) SpO2 96% BMI 28.12 kg/m?? Smoking Status Former Smoker BSA 2.1 m?? Allergies Allergen Reactions ??? Codeine Itching Pt states he feels hot, itchy, and he vomits. Pain Score 12/10/21 1410 PainSc: 0 - No pain Physical Exam Constitutional: Appearance: Normal appearance. He [...] time. Psychiatric: Mood and Affect: Mood normal. Prostate Specific Antigen Date Value Ref Range Status 10/11/2020 0.55 0.00 - 4.00 NG/ML Final 02/27/2019 0.9 0.1 TO 4.0 ng/mL Final ASSESSMENT: Encounter Diagnoses Name Primary? IGGY (generalized anxiety disorder) Yes ??? Dyslipidemia ??? Encounter to establish care ??? Male hypogonadism PLAN: Male hypogonadism - JI Vasquez 12/18/21 1035 Edited Was diagnosed with low testosterone in [facility] in 2018. Has been adjusted over time is now injecting jose r 12 days. Continue same. Dyslipidemia - JI Vasquez 12/18/21 1034 Edited Controlling with diet and exercise. Last 3 Lipid Profile ValuesRecent Labs Lab 07/19/21 0845 12/30/19 0836 09/09/19 0841 CHOL 177 213* 199 TRIG 100 275* 208* HDL 41 31* 29* LDLCALC 116* 127* 128* Continue same. Will repeat lipids in July IGGY (generalized anxiety disorder) - JI Vasquez 12/18/21 1034 Edited Currently on Lexapro 10 mg daily. And xanax 0.5 mg TID and BuSpar 7.5 b.i.d. prn # 90 per month. Patient states that he currently does not need a refill. Denies any suicide ideation. Denies any overtpanic attacks. States he is doing well on current medication regimen. COURTROOM DEPUTY OR CALENDAR CLERK reviewed low risk with noconcerned. Patient does not need any controlled substance filled at this time. Will continue with cu rrent medication regimen. Will follow-up in 3 months for recheck. Plan to obtain drug screening medication contract at that time. Orders Placed This Encounter Medications ??? escitalopram (LEXAPRO) 10 MG tablet Sig: Take 2 tablets (20 mg) by mouth daily for 30 days Dispense: 60 tablet Refill: 2 Return in about 3 months (around 03/11/2022). JI Vasquez This dental laboratory technician was electronically signed. It was dictated by use of voice recognition software and electronically transcribed. The dental laboratory technician may contain errors not detected in proofreading. documented in this encounter Miscellaneous Notes * Assessment & Plan Note - Niya Mcknight PA - 12/10/2021 3:25 PM CDT Associated Problem(s): IGGY (generalized anxiety disorder) Currently on Lexapro 10 mg daily. And xanax 0.5 mg TID and BuSpar 7.5 b.i.d. prn # 90 per month. Patient states that he currently does not need a refill. Denies any suicide ideation. Denies any overtpanic attacks. States he is doing well on current medication regimen. COURTROOM DEPUTY OR CALENDAR CLERK reviewed low risk with noconcerned. Patient does not need any controlled substance filled at this time. Will continue with cu rrent medication regimen. Will follow-up in 3 months for recheck. Plan to obtain drug screening medication contract at that time. * Assessment & Plan Note - Niya Mcknight PA - 12/10/2021 3:23 PM CDT Associated Problem(s): Dyslipidemia Controlling with diet and exercise. Last 3 Lipid Profile ValuesRecent Labs Lab 07/19/21 0845 12/30/19 0836 09/09/19 0841 CHOL 177 213* 199 TRIG 100 275* 208* HDL 41 31* 29* LDLCALC 116* 127* 128* Continue same. Will repeat lipids in July * Assessment & Plan Note - Niya Mcknight PA - 12/10/2021 3:21 PM CDT Associated Problem(s): Male hypogonadism Was diagnosed with low testosterone in [facility] in 2018. Has been adjusted over time is now injecting jose r 12 days. Continue same. documented in this encounter Plan of Treatment Not on file documented as of this encounter Visit Diagnoses Diagnosis IGGY (generalized anxiety disorder)- Primary Generalized anxiety disorder Dyslipidemia Other and unspecified hyperlipidemia Encounter to establish care Other reasons for seeking consultation Male hypogonadism Other testicular hypofunction documented in this encounter Care Teams Direct Marketing Executive Relationship Specialty Start Date End Date Cody Simms PA [address] [place] [address] PCP - General Physician Silver Lap Machine Tender 10/24/18 03/10/22 documented as of this encounter
--- OUTSIDE RECORDS SUMMARY | 2024-08-23 12:07 | XMS_ITS | Encounter Summary ---
Author Organization [facility] Address [address] [place] [address] Care Team Providers Care Threading Machine Feeder Automatic Name Role Phone Cody Simms Primary Care Provider [phone]- [phone] Reason for Visit * Reason Comments Medication Refill Encounter Details Date Type Department Care Team ([facility] st Contact Info) Description 08/12/2021 Refill [facility] [address] [place] [address] Cody Simms PA [address] [place] [address] Medication Refill Social History Tobacco Use Types [...] Primary documented in this encounter Care Teams Threading Machine Feeder Automatic Relationship Specialty Start Date End Date Cody Simms PA [address] [place] [address] PCP - General Physician Compliance Monitor 10/24/18 03/10/22 documented as of this encounter
--- OUTSIDE RECORDS SUMMARY | 2024-08-23 12:07 | XMS_ITS | Encounter Summary ---
Author Organization [facility] Address [address] [place] [address] Care Team Providers Care Ultrasound Tech Name Role Phone Cody Simms Primary Care Provider +1- [phone] Reason for Visit * Reason Comments Anxiety feels like xanax is not working anymore or not stong enough Medication Refill xanax Results blood work Encounter Details Date Type Department Care Team (Late st Contact Info) Description 07/24/2021 2:30 PM ELEMENTARY ART TEACHER Office Visit [facility] [address] [place] [address] [phone] [place] [address] [place] [address] Anxiety and depression (Primary Dx) Social History Tobacco Use Types [...] have Coronavirus / COVID-19? No / Unsure 07/23/2021 10:20 AM ELEMENTARY ART TEACHER documented as of this encounter Last Filed Vital Signs Vital Sign Reading Time Taken Comments Blood Pressure 140/100 07/24/2021 2:38 PM ELEMENTARY ART TEACHER Pulse 77 07/24/2021 2:38 PM ELEMENTARY ART TEACHER Temperature 36.7 ??C (98.1 ??F) 07/24/2021 2:38 PM CS T Respiratory Rate 18 07/24/2021 2:38 PM ELEMENTARY ART TEACHER Oxygen Saturation 97% 07/24/2021 2:38 PM ELEMENTARY ART TEACHER Inhaled Oxygen Concentration - - Weight 83.9 kg (185 lb) 07/24/2021 2:38 PM ELEMENTARY ART TEACHER Height 177.8 cm (5' 10 ) 07/24/2021 2:38 PM ELEMENTARY ART TEACHER Body Mass Index 26.54 07/24/2021 2:38 PM ELEMENTARY ART TEACHER documented in this encounter Progress Notes * Niya Mireles, ZIGGY - 07/24/2021 2:30 PM CST Images from the original note were not included. Subjective: John Veliz is a 51 y.o. male. Chief Complaint: John is seen today, 07/24/2021, complaining of or following up for Anxiety (feels like xanax is not working anymore or not stong enough), Medication Refill (xanax ), and Results (blood work). HPI John Veliz is a 51-year-old male who presents to the clinic today for follow-up on his labwork also has complaints of feeling depressed and his Xanax is not working as well. Patient is wanting his Xanax increased if possible. Patient states he has been feeling blue lately and has lots of family illness with his mother. Patient states that his work is very stressful. And he only gets relief from lifting weights. Patient states he was on several different antidepressants in the past with no relief and sometimes worsening. Past Medical History: Diagnosis Date ??? Anxiety ??? Depression (disease) Past Surgical History: Procedure Laterality Date ??? SHOULDER SURGERY 2002 left Family History Problem Relation Age of Onset ??? Depression Mother ??? Depression Father ??? Alcohol Abuse Paternal Uncle Social History Socioeconomic History ??? Marital status: Spouse name: Not on file ??? Number of children: Not on file ??? Years of education: Not on file ??? Highest education level: Not on file Occupational History ??? Not on file Tobacco Use ??? Smoking status: Former Smoker Packs/day: 1.00 Types: Cigarettes Quit date: 01/22/2015 Years since quittin.5 ??? Smokeless tobacco: Former User Substance and Sexual Activity ??? Alcohol use: Yes Comment: occasional ??? Drug use: No ??? Sexual activity: Not on file Other Topics Concern ??? Not on file Social History Narrative ??? Not on file Current Outpatient Medications Medication Sig Dispense Refill ??? ALPRAZolam (XANAX) 0.5 MG tablet TAKE ONE TABLET BY MOUTH THREE TIMES DAILY NEEDED 90 tablet2 ??? B-D 3CC LUER-JJ SYR 25GX1 25G X 1 3 ML MISC USE TO INJECT TESTOSTERONE EVERY DAY FOR ACUTE OPIOID THERAPY DAYS ??? B-D HYPODERMIC NEEDLE 22GX1 22G X 1 MISC USE TO DRAW UP TESTOSTERONE ??? BD HYPODERMIC NEEDLE 18G X 1 MISC USE TO DRAW UP TESTOSTERONE ??? Cholecalciferol (VITAMIN D PO) Take 5,000 Units by mouth daily ??? clomiPHENE (CLOMID) 50 MG tablet TAKE 1 TABLET BY MOUTH 3 TIMES WEEKLY 36 tablet 0 ??? escitalopram (LEXAPRO) 10 MG tablet Take 1 tablet (10 mg) by mouth daily for 30 days 30 tablet 0 ??? omeprazole (PRILOSEC) 40 MG capsule Take 40 mg by mouth as needed ??? testosterone cypionate (DEPO-TESTOSTERONE) 200 MG/ML injection INJECT 1ML INTO A LARGE MUSCLE EVERY 12 DAYS 10 mL 0 No current facility-administered medications for this visit. Allergies Allergen Reactions ??? Codeine Itching Pt states he feels hot, itchy, and he vomits. Review of Systems A 10 point review of systems has been deemed within normal limits unless otherwise specified in theHPI. Objective: Physical Exam Constitutional: He is oriented to person, place, and time. He appears well- developed and well-nourished. Cardiovascular: Normal rate and regular rhythm. Pulmonary/Chest: Effort normal and breath sounds normal. Neurological: He is alert and oriented to person, place, and time. Skin: Skin is warm and dry. Visit Vitals BP (!) 140/100 Pulse 77 Temp 98.1 ??F (36.7 ??C) (Tympanic) Resp 18 Ht 5' 10 Wt 185 lb (83.9 kg) SpO2 97% BMI 26.54 kg/m?? Smoking Status Former Smoker BSA 2.04 m?? Assessment: 1. Anxiety and depression Plan: John was seen today for anxiety, medication refill and results. Diagnoses and all orders for this visit: Anxiety and depression Other orders - escitalopram (LEXAPRO) 10 MG tablet; Take 1 tablet (10 mg) by mouth daily for 30 days 1. Anxiety and depression- will start patient on Lexapro 10 mg at this time. Told patient that he will need to talk to his provider about the increase in his Xanax. To the patient that he should givethe Lexapro 3-4 weeks to start seeing a full affect. Told him that sometimes this can take up to 6 weeks. Hopefully with adding the Lexapro to his medication regimen that he may not need to increase h is Xanax at this time. Will follow-up with patient in 1 month to see how the Lexapro is working. Follow up as indicated or sooner if [...] we are not available. Niya Mireles NP 07/24/2021 3:08 PM This occupational therapy technician was created in part using [employer] Direct voice recognition software, electronically transcribed and electronically signed. Be aware that this occupational therapy technician may contain errors not detected by proofreading. ENTARY ART TEACHER documented in this encounter Plan of Treatment Not on file documented as of this encounter Visit Diagnoses Diagnosis Anxiety and depression- Primary Dysthymic disorder documented in this encounter Care Teams Ultrasound Tech Relationship Specialty Start Date End Date Cody Simms PA [address] [place] [id number] PCP - General Physician Radiator Mechanic 10/24/18 03/10/22 documented as of this encounter
--- OUTSIDE RECORDS SUMMARY | 2024-08-23 12:07 | XMS_ITS | Encounter Summary ---
Author Organization [facility] Address [address] [place] [address] Care Team Providers Care Oracle Pl Sql Developer Name Role Phone Cody Simms Primary Care Provider [phone]- [phone] Reason for Visit * Reason Comments Medication Refill Encounter Details Date Type Department Care Team ([facility] st Contact Info) Description 10/20/2021 Refill [facility] [address] [place] [address] Cody Simms PA [address] [place] [address] Medication Refill Social History Tobacco Use Types [...] on filedocumented in this encounter Care Teams Oracle Pl Sql Developer Relationship Specialty Start Date End Date Cody Simms PA [address] [place] [id number] PCP - General Physician White Hat Hacker 10/24/18 03/10/22 documented as of this encounter
--- OUTSIDE RECORDS SUMMARY | 2024-08-23 12:07 | XMS_ITS | Encounter Summary ---
Author Organization [facility] Address [address] [place] [address] Care Team Providers Care Horizontal Boring Mill Set Up Operator Name Role Phone Cody Simms Primary Care Provider +1 [phone] Reason for Visit * Reason Comments Medication Refill Encounter Details Date Type Department Care Team (Late st Contact Info) Description 01/21/2022 Refill [facility] [address] [place] [address] Niya Mcknight PA [address] [place] [address] Medication Refill Social History Tobacco [...] on filedocumented in this encounter Care Teams Horizontal Boring Mill Set Up Operator Relationship Specialty Start Date End Date Cody Simms PA [address] [place] [address] PCP - General Physician Registered Dietetic Technician 10/24/18 03/10/22 documented as of this encounter
--- OUTSIDE RECORDS SUMMARY | 2024-08-23 12:08 | XMS_ITS | Encounter Summary ---
Author Organization [facility] Address [address] [place] [address] Care Team Providers Care Sap Business Analyst Name Role Phone Cody Simms Primary Care Provider Reason for Visit * Reason Onset Date Comments Prior Authorization Renewal 01/03/2021 cpap trial Encounter Details Date Type Department Care Team (Late st Contact Info) Description 01/03/2021 Telephone [facility] Practice [address] [place] [address] Cody Simms PA [address] [place] [address] Prior Authorization Renewal (cpap trial) Social History Tobacco Use Types Packs/Day Years [...] encounter Miscellaneous Notes * Telephone Encounter - Zuleyka Ritter LPN - 01/20/2021 11:13 AM CDT Scheduled for cpap trail at [facility] sleep lab 02/13/2021 * Telephone Encounter - Zuleyka Ritter LPN - 01/03/2021 9:19 AM CDT Spoke with Anita at [facility] for cpt [id number] cpap trial pending auth [id number] clinicals faxed to [phone] documented in this encounter Plan of Treatment Not on file documented as of this encounter Visit Diagnoses Not on filedocumented in this encounter Care Teams Sap Business Analyst Relationship Specialty Start Date End Date Cody Simms PA [address] [place] [id number] PCP - General Physician Musical Therapist 10/24/18 03/10/22 documented as of this encounter
--- OUTSIDE RECORDS SUMMARY | 2024-08-23 12:08 | XMS_ITS | Encounter Summary ---
Author Organization [facility] Address [address] [place] [address] Care Team Providers Care Billiard Table Repairer Name Role Phone Cody Simms Primary Care Provider +1- [phone] Reason for Visit * Reason Onset Date Comments Other 11/25/2020 Follow-up 11/25/2020 sleep study. Encounter Details Date Type Department Care Team ([facility] st Contact Info) Description 11/25/2020 Telephone [facility] [address] [place] [address] Cody Simms PA [address] [place] [address] Other; Follow-up (sleep study.) Social History Tobacco Use Types Packs/Day Years [...] have Coronavirus / COVID-19? No / Unsure 11/06/2020 3:41 PM SURGICAL ELASTIC KNITTER HAND FRAME documented as of this encounter Miscellaneous Notes * Telephone Encounter - Marycarmen Edouard LPN - 11/28/2020 3:05 PM CDT Patient contacted. * Telephone Encounter - Cody Simms - 11/28/2020 12:28 PM CDT Please let him know that I ordered it and they should be contacting him * Telephone Encounter - Marycarmen Edouard LPN - 11/26/2020 11:00 AM CDT Called [facility] to get the results of the sleep study. Notified patient that the results were in office and provider would be determining the next step and give patient a call ! * Telephone Encounter - Eugenie Reza LPN - 11/25/2020 1:50 PM CDT Pt called asking for provider to write an order for Sleep Study with C-Pap and have it faxed to: [facility] Respiratory [phone] ATTN: Marleni Please call pt back documented in this encounter Plan of Treatment Not on file documented as of this encounter Visit Diagnoses Not on filedocumented in this encounter Care Teams Billiard Table Repairer Relationship Specialty Start Date End Date Cody Simms PA [address] [place] [id number] PCP - General Physician Refrigeration Unit Repairer 10/24/18 03/10/22 documented as of this encounter
--- OUTSIDE RECORDS SUMMARY | 2024-08-23 12:08 | XMS_ITS | Encounter Summary ---
Author Organization [facility] Address [address] [place] [address] Care Team Providers Care Filling Winder Name Role Phone Cody Simms Primary Care Provider +1- [phone] Reason for Visit * Reason Comments Medication Refill Pt here for medicati on refills on alprazolam at [facility], testosterone and clomiphene to [facility] in [place], [place] Encounter Details Date Type Department Care Team (Late st Contact Info) Description 05/05/2021 3:30 PM CDT Office Visit [facility] [address] [address] [place] [phone] Galen Jones, [address] [address] [place] [phone] Male hypogonadism (Primary Dx); IGGY (generalized anxiety [...] have Coronavirus / COVID-19? 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 OFFICE VISIT [facility] Medicine CHIEF COMPLAINT Medication Refill (Pt here for medication refills on alprazolam at [facility], testosterone and clomiphene to [facility] in [place], [place]) HPI John Veliz is a 50 y.o. male who presents for follow up and/or for acute complaints listed above. The patient states that he is doing well and needs refills of several medications today including alprazolam, testosterone, and Clomid. He typically sees Cody and had routine labs drawn in October. PMHx: has a past medical history of Anxiety and Depression (disease). PSHx: has a past surgical history that includes shoulder surgery (2001). FHx: family history includes Alcohol Abuse in his paternal uncle; Depression in his father and mother. SOCIALHx: reports that he quit smoking about 6 years ago. His smoking use included cigarettes. He smoked 1.00 pack per day. He has quit using smokeless tobacco. He reports current alcohol use. He reports that he does not use drugs. ALLERGIES: is allergic to codeine. MEDS: has a current medication list which includes the following prescription(s): alprazolam, b-d 3cc luer-myrtle syr 25gx1 , b-d hypodermic needle 22gx1 , bd hypodermic needle, vitamin d, clomiphene, omeprazole, and testosterone cypionate. REVIEW OF SYSTEMS 10-point review of systems negative except for that mentioned in the HPI. PHYSICAL EXAM VITAL SIGNS: Visit Vitals BP (!) 144/82 (BP Site: Left Arm, Patient Position: Sitting, BP Cuff Size: Large) Pulse 87 Temp 97.1 ??F (36.2 ??C) (Tympanic) Resp 18 Wt 192 lb (87.1 kg) SpO2 98% BMI 27.55 kg/m?? Smoking Status Former Smoker BSA 2.07 m?? WEIGHT TREND: Wt Readings from Last 3 Encounters: 05/05/21 192 lb (87.1 kg) 11/07/20 194 lb (88 kg) 07/19/20 208 lb (94.3 kg) GEN: Patient is alert and in no acute distress. HEENT: NC, AT, PERRL, Conjunctiva normal. Oropharynx moist, No oral exudates. Neck: Supple, No tenderness. No lymphadenopathy. Cardiovascular: RRR, No murmurs. Thorax & Lungs: CTA B/L, unlabored respirations, No wheezing, rales, or rhonchi. Abdomen: Soft, non-tender, non-distended, Bowel sounds normal. Skin: Warm, Dry, No erythema, No rash. Extremities: No edema, No tenderness. Psych: AAOx3, Makes eye contact, Groomed appropriately. Patient's behavior, LOC, thought content, communication skills and emotional status are appropriate. ASSESSMENT/PLAN John was seen today for medication refill. He seems to be doing well. Medications refilled in Cody's absence. Diagnoses and all orders for this visit: Male hypogonadism - testosterone cypionate (DEPO-TESTOSTERONE) 200 MG/ML injection; INJECT 1ML INTO A LARGE MUSCLE EVERY 12 DAYS - clomiPHENE (CLOMID) 50 MG tablet; TAKE 1 TABLET BY MOUTH 3 TIMES WEEKLY IGGY (generalized anxiety disorder) - ALPRAZolam (XANAX) 0.5 MG tablet; Take 1 tablet (0.5 mg) by mouth 3 times daily as needed Follow up with PCP in June or sooner as needed. [facility] 05/05/2021 4:02 PM documented in this encounter Plan of Treatment Not on file documented as of this encounter Visit Diagnoses Diagnosis Male hypogonadism- Primary Other testicular hypofunction IGGY (generalized anxiety disorder) Generalized anxiety disorder documented in this encounter Care Teams Filling Winder Relationship Specialty Start Date End Date Cody Simms PA [address] [place] [id number] PCP - General Physician Signals Intelligence Superintendent 10/24/18 03/10/22 documented as of this encounter
--- OUTSIDE RECORDS SUMMARY | 2024-08-23 12:08 | XMS_ITS | Encounter Summary ---
Author Organization [facility] Address [address] [place] [address] Care Team Providers Care Jive Developer Name Role Phone Cody Simms Primary Care Provider +1- [phone] Reason for Visit * Reason Comments Medication Refill Encounter Details Date Type Department Care Team ([facility] st Contact Info) Description 05/02/[address] [facility] Family Practice [address] [place] [address] Cody Simms PA [address] [place] [address] Medication Refill Social History Tobacco Use Types [...] on filedocumented in this encounter Care Teams Jive Developer Relationship Specialty Start Date End Date Cody Simms PA [address] [place] [address] PCP - General Physician Lining Repairer 10/24/18 03/10/22 documented as of this encounter
--- OUTSIDE RECORDS SUMMARY | 2024-08-23 12:08 | XMS_ITS | Encounter Summary ---
Author Organization [facility] Address [address] [place] [address] Care Team Providers Care Date Night Sitter Name Role Phone Cody Simms Primary Care Provider +1 [phone] Reason for Referral * Referral (Routine) - Closed Specialty Diagnoses / Procedures Referred By Contac t Referred To Contact Diagnoses Daytime sleepiness Snoring Cody Simms PA [address] [place] [address] [facility] [address] [place] [address] Referral ID Status Reason Start Date Expiration Date V isits Requested Visits Authorized [id number] Closed Consult 05/07/2020 06/05/2020 1 1 Question Answer Symptoms reported or observed Snoring Comments Neck circumference is 18 inches Patient requests sleep center at [facility] phone [phone] Encounter Details Date Type Department Care Team (Late st Contact Info) Description 05/02/2020 Orders Only [facility] [address] [place] [address] Cody Simms PA [address] [place] [address] Daytime sleepiness (Primary Dx); Snoring Social History Tobacco Use Types Packs/Day Years Used Date Smoking Tobacco: Former Cigarettes Q uit: 01/22/2015 Smokeless Tobacco: Former Alcohol Use Standard Drinks/Week Comments Yes 0 (1 standard drink = 0.6 oz pur e alcohol) occasional Sex and Gender Information Value Date Recorded Sex Assigned at Not on file Gender Identity Not on file Sexual Orientation Not on file COVID-19 Exposure Response Date Recorded In the last month, have you been in contact with someone who was confirmed or suspected to have Coronavirus / COVID-19? No / Unsure 05/01/2020 3:04 PM CDT documented as of this encounter Plan of Treatment Not on file documented as of this encounter Procedures Procedure Name Priority Date/Time Associated Diagnosis Comments AMB REFERRAL TO SLEEP STUDIES Routine 10/23/2020 Daytime sleepiness Snoring documented in this encounter Results * AMB REFERRAL TO SLEEP STUDIES (10/23/2020) Cody WORKMAN OUTPATIENT REFERRAL ORDERABLES documented in this encounter Visit Diagnoses Diagnosis Daytime sleepiness- Primary Snoring Other dyspnea and respiratory abnormality documented in this encounter Care Teams Date Night Sitter Relationship Specialty Start Date End Date Cody Simms PA [address] [place] [address] PCP - General Physician Lecturer In Marketing 10/24/18 03/10/22 documented as of this encounter
--- OUTSIDE RECORDS SUMMARY | 2024-08-23 12:08 | XMS_ITS | Encounter Summary ---
Author Organization [facility] Address [address] [place] [address] Care Team Providers Care Job Coaching Name Role Phone Cody Simms Primary Care Provider +1- [phone] Reason for Visit * Reason Onset Date Comments Other 04/07/2021 Encounter Details Date Type Department Care Team (Late st Contact Info) Description 04/07/[address] [facility] Family Practice [address] [place] [address] Cody Simms PA [address] [place] [address] Other Social History Tobacco Use [...] Telephone Encounter - Marycarmen Edouard LPN - 04/08/2021 8:48 AM CDT Pharmacy called to change size of needles. * Telephone Encounter - Zuleika Joseph CNA - 04/07/2021 1:02 PM CDT Camilla with [facility] called and said the 18g needles are on back order and is needing to have itchanged. Please call back documented in this encounter Plan of Treatment Not on file documented as of this encounter Visit Diagnoses Not on filedocumented in this encounter Care Teams Job Coaching Relationship Specialty Start Date End Date Cody Simms PA [address] [place] [id number] PCP - General Physician Net Developer 10/24/18 03/10/22 documented as of this encounter
--- OUTSIDE RECORDS SUMMARY | 2024-08-23 12:08 | XMS_ITS | Encounter Summary ---
Author Organization [facility] Address [address] [place] [address] Care Team Providers Care Boiler Control Room Operator Name Role Phone Cody Simms Primary Care Provider +1- [phone] Reason for Visit * Reason Comments Medication Refill Encounter Details Date Type Department Care Team ([facility] st Contact Info) Description 09/04/2020 Refill [facility] Practice [address] [place] [address] Cody Simms PA [address] [place] [address] Medication Refill Social History Tobacco Use Types [...] on filedocumented in this encounter Care Teams Boiler Control Room Operator Relationship Specialty Start Date End Date Cody Simms PA [address] [place] [id number] PCP - General Physician Plant Wrapper 10/24/18 03/10/22 documented as of this encounter
--- OUTSIDE RECORDS SUMMARY | 2024-08-23 12:08 | XMS_ITS | Encounter Summary ---
Author Organization [facility] Address [address] [place] [address] Care Team Providers Care Convolute Tube Winder Name Role Phone Cody Simms Primary Care Provider +1- [phone] Reason for Visit * Reason Onset Date Comments Other 06/25/2020 Encounter Details Date Type Department Care Team ([facility] st Contact Info) Description 06/25/2020 Telephone [facility] Practice [address] [place] [address] Cody Simms PA [address] [place] [address] Other Social History Tobacco Use [...] have Coronavirus / COVID-19? 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 * Telephone Encounter - Cody Simms - 06/25/2020 2:37 PM CDT I tried calling him. The form says that it can not be completed by a PA so he is going to need a appointment with one of the MDs in the practice for this. * Telephone Encounter - Harini Kevin - 06/25/2020 1:32 PM CDT Patient is needing to know if the paper work for his drivers license is done. He is coming to therapy at the hospital tomorrow. He would like to pick this up documented in this encounter Plan of Treatment Not on file documented as of this encounter Visit Diagnoses Not on filedocumented in this encounter Care Teams Convolute Tube Winder Relationship Specialty Start Date End Date Cody Simms PA [address] [place] [address] PCP - General Physician Riding Silks Custodian 10/24/18 03/10/22 documented as of this encounter
--- OUTSIDE RECORDS SUMMARY | 2024-08-23 12:08 | XMS_ITS | Encounter Summary ---
Author Organization [facility] Address [address] [place] [address] Care Team Providers Care Physician Specialist Name Role Phone Cody Simms Primary Care Provider [phone]- [phone] Reason for Visit * Reason Onset Date Comments Other 01/02/2021 Encounter Details Date Type Department Care Team (Late st Contact Info) Description 01/02/2021 Telephone [facility] [address] [place] [address] Cody Simms PA [address] [place] [address] Other Social History Tobacco Use [...] Telephone Encounter - Marycarmen Edouard LPN - 01/02/2021 5:43 PM CDT Patient called wanting to know when sleep study is going to be done. documented in this encounter Plan of Treatment Not on file documented as of this encounter Visit Diagnoses Not on filedocumented in this encounter Care Teams Physician Specialist Relationship Specialty Start Date End Date Cody Simms PA [address] [place] [address] PCP - General Physician Physician Asst 10/24/18 03/10/22 documented as of this encounter
--- OUTSIDE RECORDS SUMMARY | 2024-08-23 12:08 | XMS_ITS | Encounter Summary ---
Author Organization [facility] Address [address] [place] [address] Care Team Providers Care Coin Machine Mechanic Name Role Phone Cody Simms Primary Care Provider [phone]- [phone] Reason for Visit * Reason Comments Medication Refill Encounter Details Date Type Department Care Team (Late st Contact Info) Description 06/30/[address] [facility] Medicine [address] [address] [place] [address] Galen Jones, [address] [address] [place] [address] Medication Refill Social History Tobacco [...] Telephone Encounter - Anna Thomas LPN - 06/30/2021 10:42 AM CDT Refill request documented in this encounter Plan of Treatment Not on file documented as of this encounter Visit Diagnoses Diagnosis IGGY (generalized anxiety disorder) Generalized anxiety disorder documented in this encounter Care Teams Coin Machine Mechanic Relationship Specialty Start Date End Date Cody Simms PA [address] [place] [address] PCP - General Physician Chief Technician X Ray 10/24/18 03/10/22 documented as of this encounter
--- OUTSIDE RECORDS SUMMARY | 2024-08-23 12:08 | XMS_ITS | Encounter Summary ---
Author Organization [facility] Address [address] [place] [address] Care Team Providers Care Fudge Candy Maker Name Role Phone Cody Simms Primary Care Provider [phone] Reason for Referral * Referral (Routine) - Closed Specialty Diagnoses / Procedures Referred By Contac t Referred To Contact Diagnoses Obstructive sleep apnea Cody Simms PA [address] [place] [address] [facility] OP [address] [place] [address] Referral ID Status Reason Start Date Expiration Date V isits Requested Visits Authorized [id number] Closed Consult 11/28/2020 1 1 Question Answer Symptoms reported or observed Witnessed apneas, Snoring, Excessive daytime sleepiness Comments Had home study that suggested a cpap trial in the sleep lab please Encounter Details Date Type Department Care Team (Late st Contact Info) Description 11/28/2020 Orders Only [facility] [address] [place] [address] Cody Simms PA [address] [place] [address] Obstructive sleep apnea (Primary Dx) Social History Tobacco Use Types [...] COVID-19? No / Unsure 11/06/2020 3:41 PM MAP PLOTTER documented as of this encounter Plan of Treatment Not on file documented as of this encounter Procedures Procedure Name Priority Date/Time Associated Diagnosis Comments AMB REFERRAL TO SLEEP STUDIES Routine 10/23/2020 Obstructive sleep apnea documented in this encounter Results * AMB REFERRAL TO SLEEP STUDIES (10/23/2020) Cody WORKMAN OUTPATIENT REFERRAL ORDERABLES documented in this encounter Visit Diagnoses Diagnosis Obstructive sleep apnea- Primary Obstructive sleep apnea (adult) (pediatric) documented in this encounter Care Teams Fudge Candy Maker Relationship Specialty Start Date End Date Cody Simms PA [address] [place] [address] PCP - General Physician Solar Consultant 10/24/18 03/10/22 documented as of this encounter
--- OUTSIDE RECORDS SUMMARY | 2024-08-23 12:08 | XMS_ITS | Encounter Summary ---
Author Organization [facility] Address [address] [place] [address] Care Team Providers Care Portable Track Crew Chief Name Role Phone Cdoy Simms Primary Care Provider [phone] Reason for Visit * Reason Onset Date Comments Medication Refill 01/21/2021 Encounter Details Date Type Department Care Team (Late st Contact Info) Description 01/21/2021 Refill [facility] [address] [place] [address] Cody Simms PA [address] [place] [address] Medication Refill Social History Tobacco [...] on filedocumented in this encounter Care Teams Portable Track Crew Chief Relationship Specialty Start Date End Date Cody Simms PA [address] [place] [address] PCP - General Physician Media Associate 10/24/18 03/10/22 documented as of this encounter
--- OUTSIDE RECORDS SUMMARY | 2024-08-23 12:08 | XMS_ITS | Encounter Summary ---
Author Organization [facility] Address [address] [place] [address] Care Team Providers Care Finishing Technician Name Role Phone Cody Simms Primary Care Provider [phone] Reason for Visit * Reason Comments Medication Refill Encounter Details Date Type Department Care Team (Late st Contact Info) Description 12/13/2020 Refill [facility] [address] [place] [address] Cody Simms PA [address] [place] [address] Medication Refill Social History Tobacco [...] on filedocumented in this encounter Care Teams Finishing Technician Relationship Specialty Start Date End Date Cody Simms PA [address] [place] [address] PCP - General Physician Director Web 10/24/18 03/10/22 documented as of this encounter
--- OUTSIDE RECORDS SUMMARY | 2024-08-23 12:08 | XMS_ITS | Encounter Summary ---
Author Organization [facility] Address [address] [place] [address] Care Team Providers Care C D Stripper Name Role Phone Cody Simms Primary Care Provider [phone]- [phone] Reason for Visit * Reason Onset Date Comments Medication Refill Medication Refill 04/22/2021 Encounter Details Date Type Department Care Team (Late st Contact Info) Description 03/06/2021 Refill [facility] [address] [place] [address] Cody Simms PA [address] [place] [address] Medication Refill; Medication Refill Social History Tobacco Use Types [...] on filedocumented in this encounter Care Teams C D Stripper Relationship Specialty [place] [address] [place] [address] PCP - General Physician Medical Pathology Teacher 10/24/18 03/10/22 documented as of this encounter
--- OUTSIDE RECORDS SUMMARY | 2024-08-23 12:08 | XMS_ITS | Encounter Summary ---
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 No / Unsure 06/27/2020 12:56 PM CDT documented as of this encounter Last Filed Vital Signs Vital Sign Reading Time Taken Comments Blood Pressure 128/82 06/27/2020 1:07 PM CDT Pulse 72 06/27/2020 1:07 PM CDT Temperature 36.8 ??C (98.2 ??F) 06/27/2020 1:07 PM CD T Respiratory Rate 18 06/27/2020 1:07 PM CDT Oxygen Saturation 98% 06/27/2020 1:07 PM CDT Inhaled Oxygen Concentration - - Weight 91.6 kg (202 lb) 06/27/2020 1:07 PM CDT Height 177.8 cm (5' 10 ) 06/27/2020 1:07 PM CDT Body Mass Index 28.98 06/27/2020 1:07 PM CDT documented in this encounter Progress Notes * Willy Recinos MD - 06/27/2020 1:00 PM CDT Images from the original note were not included. OFFICE NOTE Subjective: John Veliz is 50 y.o. year old male that is here for anxiety. Patient has a state form that needs to be filled out for fit for driving. He usually follows with aPA, but the state form requires a doctor. No history of seizures or syncopal episodes. Patient has anxiety that is controlled with a low dose of Xanax. We called PA's office and PA said that patient has been reliable patient keeping his appointments and appropriately taking his medications. No concerns from PA of medical limitations for patient's driving. Social History Tobacco Use Smoking Status Former Smoker ??? Packs/day: 1.00 ??? Types: Cigarettes ??? Quit date: 01/22/2015 ??? Years since quittin.4 Smokeless Tobacco Former User I reviewed the patient's medications. ROS: Negative except for above Objective: Visit Vitals BP 128/82 Pulse 72 Temp 98.2 ??F (36.8 ??C) Resp 18 Ht 5' 10 Wt 202 lb (91.6 kg) SpO2 98% BMI 28.98 kg/m?? Smoking Status Former Smoker BSA 2.13 m?? Constitutional: Well developed, Well nourished, No acute distress, Non-toxic appearance. HEENT: Normocephalic, Atraumatic. PERRL. Extraocular movements are intact. Respiratory: Normal breath sounds, No wheezing, No crackles, No respiratory distress. No intercostal retractions or nasal flaring. Cardiovascular: Normal heart rate, Normal rhythm, No murmurs, No rubs, No gallops. Neurologic: No specific focal neurologic deficits noted. Data: No results found for this or any previous visit (from the past 336 hour(s)). Assessment/Plan: No problem-specific Assessment & Plan notes found for this encounter. John was seen today for annual exam. Diagnoses and all orders for this visit: IGGY (generalized anxiety disorder) Form filled out indicating that patient's medical conditions do not prevent him from driving. No follow-ups on file. Willy Recinos MD 06/27/2020 2:05 PM This relief manager was created in part using [employer] voice recognition software, electronically transcribed and electronically signed. Be aware that this relief manager may contain errors not detected by proofreading. documented in this encounter Plan of Treatment Not on file documented as of this encounter Visit Diagnoses Diagnosis IGGY (generalized anxiety disorder)- Primary Generalized anxiety disorder documented in this encounter Care Teams Ground Support Equipment Assembler Relationship Specialty Start Date End Date Cody Simms PA [address] [place] [address] PCP - General Physician Multi Disciplined Language Analyst 10/24/18 03/10/22 documented as of this encounter
--- OUTSIDE RECORDS SUMMARY | 2024-08-23 12:08 | XMS_ITS | Encounter Summary ---
Author Organization [facility] Address [address] [place] [address] Care Team Providers Care Rn Social Services Name Role Phone Cody Simms Primary Care Provider [phone] Reason for Visit * Reason Onset Date Comments Medication Management 04/22/2021 Encounter Details Date Type Department Care Team (Late st Contact Info) Description 04/22/2021 [facility] [address] [place] [address] Cody Simms PA [address] [place] [address] Medication Management Social History Tobacco Use Types Packs/Day Years [...] Telephone Encounter - Jesi Koo LPN - 04/29/2021 1:32 PM CDT Patient notified and appointment scheduled. * Telephone Encounter - Galen oJnes DO - 04/29/2021 9:57 AM CDT Patient will need to be seen for refills. * Telephone Encounter - Naina Ramirez LPN - 04/22/2021 2:08 PM CDT Pt attempted to make apt with Cody for 6 month refill. Cody is out of the office pt is go get labdrawn at the 1st of the month for his apt 05-13-21. He will need xanax refilled out before then. Pt is aware they are not due yet he called to make a apt before refills due documented in this encounter Plan of Treatment Not on file documented as of this encounter Visit Diagnoses Not on filedocumented in this encounter Care Teams Rn Social Services Relationship Specialty Start Date End Date Cody Simms PA [address] [place] [address] PCP - General Physician Mechanical Maintenance Supervisor 10/24/18 03/10/22 documented as of this encounter
--- OUTSIDE RECORDS SUMMARY | 2024-08-23 12:08 | XMS_ITS | Encounter Summary ---
Author Organization [facility] Address [address] [place] [address] Care Team Providers Care Manager Of Exhibitions And Collections Name Role Phone Cody Simms Primary Care Provider [phone] Reason for Visit * Reason Comments Medication Refill Encounter Details Date Type Department Care Team (Late st Contact Info) Description 09/16/2020 Refill [facility] [address] [place] [address] Cody iSmms PA [address] [place] [address] Medication Refill Social History Tobacco [...] on filedocumented in this encounter Care Teams Manager Of Exhibitions And Collections Relationship Specialty Start Date End Date Cody Simms PA [address] [place] [address] PCP - General Physician Lamp Shades Supervisor 10/24/18 03/10/22 documented as of this encounter
--- OUTSIDE RECORDS SUMMARY | 2024-08-23 12:08 | XMS_ITS | Encounter Summary ---
Author Organization [facility] Address [address] [place] [address] Care Team Providers Care Change Manager Name Role Phone Cody Simms Primary Care Provider [phone] Encounter Details Date Type Department Care Team (Late st Contact Info) Description 03/04/2021 Orders Only [facility] [address] [place] [address] Cody Simms PA [facility] [place] [address] Obstructive sleep apnea (Primary Dx) [...] as of this encounter Visit Diagnoses Diagnosis Obstructive sleep apnea- Primary Obstructive sleep apnea (adult) (pediatric) documented in this encounter Care Teams Change Manager Relationship Specialty Start Date End Date Cody Simms PA [address] [place] [address] PCP - General Physician Cafeteria Manager 10/24/18 03/10/22 documented as of this encounter
--- OUTSIDE RECORDS SUMMARY | 2024-08-23 12:08 | XMS_ITS | Encounter Summary ---
Author Organization [facility] Address [address] [place] [address] Care Team Providers Care It Architect Name Role Phone Cody Simms Primary Care Provider [phone] Reason for Visit * Reason Comments Dizziness onset last 2-3 month s blood pressure is reported normal at home on his BP cuff has had in the past but this feels different. Encounter Details Date Type Department Care Team (Late st Contact Info) Description 11/07/2020 2:00 PM EAP CLINICIAN Office Visit [facility] [address] [place] [address] Cody Simms PA [address] [place] [address] Dysfunction of Eustachian tube, unspecified laterality (Primary Dx); Dyslipidemia; Testosterone deficiency Social History Tobacco Use Types [...] COVID-19? No / Unsure 11/06/2020 3:41 PM EAP CLINICIAN documented as of this encounter Last Filed Vital Signs Vital Sign Reading Time Taken Comments Blood Pressure 138/82 11/07/2020 2:26 PM EAP CLINICIAN Pulse 87 11/07/2020 2:26 PM EAP CLINICIAN Temperature 37.2 ??C (98.9 ??F) 11/07/2020 2:26 PM CS T Respiratory Rate 18 11/07/2020 2:26 PM EAP CLINICIAN Oxygen Saturation 97% 11/07/2020 2:26 PM EAP CLINICIAN Inhaled Oxygen Concentration - - Weight 88 kg (194 lb) 11/07/2020 2:26 PM EAP CLINICIAN Height 177.8 cm (5' 10 ) 11/07/2020 2:26 PM EAP CLINICIAN Body Mass Index 27.84 11/07/2020 2:26 PM EAP CLINICIAN documented in this encounter Progress Notes * Cody Simms - 11/07/2020 2:00 PM CST CHIEF COMPLAINT: Chief Complaint Patient presents with ??? Dizziness onset last 2-3 months blood pressure is reported normal at home on his BP cuff has had in the past but this feels different. SUBJECTIVE: He presents today for dizziness which he has experienced on and off for the last 2-3 months. He thought maybe it was his blood pressure but has has been checking out fine as he does have a blood pressure cuff at home now. He also thought it was is blood sugar but we did obtain a BMP at today's visit and his glucose looked acceptable. He has had vertigo in the past and states that this feels different. He is also here to review laboratory draw including a BMP which was satisfactory testosterone level which was satisfactory and a PSA which is also satisfactory. He is on testosterone replacementand doing well with that. ROS: Remainder of a 10 point review of systems is negative other than above PROBLEM LIST: Patient Active Problem List Diagnosis Code ??? IGGY (generalized anxiety disorder) F41.1 ??? Hyperglycemia R73.9 ??? Family history of diabetes mellitus Z83.3 ??? Dyslipidemia E78.5 ??? Hypovitaminosis D E55.9 ??? Azotemia R79.89 MEDICATIONS Current Outpatient Medications on File Prior to Visit Medication Sig Dispense Refill ??? ALPRAZolam (XANAX) 0.5 MG tablet TAKE ONE TABLET BY MOUTH THREE TIMES DAILY NEEDED FOR ANXIETY 90 tablet 2 ??? B-D 3CC LUER-JJ SYR 25GX1 25G X 1 3 ML MISC USE TO INJECT TESTOSTERONE EVERY DAY FOR ACUTE OPIOID THERAPY DAYS ??? Cholecalciferol (VITAMIN D PO) Take 5,000 [...] 10 mL 0 No current facility-administered medications on file prior to visit. ALLERGIES: Allergies Allergen Reactions ??? Codeine Itching Pt states he feels hot, itchy, and he vomits. PHYSICAL EXAM: VITALS: Vitals: 11/07/20 1426 BP: 138/82 Pulse: 87 Resp: 18 Temp: 98.9 ??F (37.2 ??C) TempSrc: Tympanic SpO2: 97% Weight: 194 lb (88 kg) Height: 5' 10 Constitutional: Body mass index is 27.84 kg/m??., No acute distress, Non-toxic appearance. HEENT: Normocephalic, Atraumatic, Bilateral external ears normal, Oropharynx moist, No oral exudates, Nose normal, PERRLA Cardiovascular: Normal heart rate, Normal rhythm, No murmurs, No rubs, No gallops. Thorax & Lungs: Normal breath sounds, No respiratory distress, No wheezing, No chest tenderness. Abdomen: Soft, Non tender, No guarding, No masses, Normal bowel sounds Extremities: Intact distal pulses, No edema, Neurologic: grossly intact ASSESMENT & PLAN: Dizziness/dysfunction of eustachian tube-he does have evidence of eustachian tube dysfunction therefore I did recommend a 1 week course of Sudafed, Flonase, Valsalva maneuvers, and eustachian tube massage to try to get the eustachian tube open. Follow-up as needed. Dyslipidemia-we would like to order a lipid profile for when he returns in 6 months. Testosterone deficiency-he is tolerating the testosterone replacement very well we did order a testosterone level which is satisfactory and we also ordered a screening PSA which is satisfactory.We will continue the testosterone replacement at the current dose. Decreased GFR-his last GFR on December 30, 2019 was decreased at 55. We did redraw a BMP at today's visit and has increased to 65. We will continue to monitor this with a CMP in 6 months. Final Diagnosis: Encounter Diagnoses Code Name Primary? H69.80 Dysfunction of Eustachian tube, unspecified laterality Yes ??? E78.5 Dyslipidemia ??? E34.9 Testosterone deficiency Visit Orders: Orders Placed This Encounter Procedures ??? CBC w/Auto Diff (Future 6 Months) Standing Status: Future Standing Expiration Date: 11/07/2021 ??? Comprehensive Metabolic Panel (Future 6 Months) Standing Status: Future Standing Expiration Date: 11/07/2021 ??? Lipid Profile (Future 6 Months) Standing Status: Future Standing Expiration Date: 11/07/2021 ??? TESTOS FREE/TOT ADULT MALE Standing Status: Future Standing Expiration Date: 11/07/2021 DISCHARGE MEDS: Outpatient Encounter Medications as of 11/07/2020 Medication Sig Dispense Refill ??? ALPRAZolam (XANAX) 0.5 MG tablet TAKE ONE TABLET BY MOUTH THREE TIMES DAILY NEEDED FOR ANXIETY 90 tablet 2 ??? B-D 3CC LUER-JJ SYR 25GX1 25G X 1 3 ML MISC USE TO INJECT TESTOSTERONE EVERY DAY FOR ACUTE OPIOID THERAPY DAYS ??? Cholecalciferol (VITAMIN D PO) Take 5,000 Units by mouth daily ??? clomiPHENE (CLOMID) 50 MG tablet TAKE 1 TABLET BY MOUTH 3 TIMES WEEKLY 36 tablet 0 ??? fluticasone (FLONASE) 50 MCG/ACT nasal spray 1 spray by Nasal route daily for 30 days 1 Inhaler0 ??? omeprazole (PRILOSEC) 40 MG capsule Take 40 mg by mouth as needed ??? testosterone cypionate (DEPO-TESTOSTERONE) 200 MG/ML injection INJECT 1ML INTO A LARGE MUSCLE EVERY 12 DAYS 10 mL 0 No facility-administered encounter medications on file as of 11/07/2020. 1. The patient indicates understanding of these [...] allergies listed in the above medical record CLINICIAN documented in this encounter Plan of Treatment Not on file documented as of this encounter Visit Diagnoses Diagnosis Dysfunction of Eustachian tube, unspecified laterality- Primary Dyslipidemia Other and unspecified hyperlipidemia Testosterone deficiency Other testicular hypofunction documented in this encounter Care Teams It Architect Relationship Specialty Start Date End Date Cody Simms PA [address] [place] [address] PCP - General Physician Farmworker Egg Producing Farm 10/24/18 03/10/22 documented as of this encounter
--- OUTSIDE RECORDS SUMMARY | 2024-08-23 12:08 | XMS_ITS | Encounter Summary ---
Author Organization [facility] Address [address] [place] [address] Care Team Providers Care School Psychology Professor Name Role Phone Cody Simms Primary Care Provider [phone]- [phone] Reason for Visit * Reason Comments Follow-up 6 months Knee Pain went to therapy xs 2 Encounter Details Date Type Department Care Team (Late st Contact Info) Description 07/19/2020 2:00 PM DIE TRY OUT WORKER STAMPING Office Visit [facility] [address] [place] [address] Cody Simms PA [address] [place] [address] Testosterone deficiency (Primary Dx); Long-term current use of testosterone replacement therapy; Decreased GFR; Dyslipidemia; Medication management Social History Tobacco Use [...] COVID-19? No / Unsure 07/18/2020 9:21 AM DIE TRY OUT WORKER STAMPING documented as of this encounter Last Filed Vital Signs Vital Sign Reading Time Taken Comments Blood Pressure 162/98 07/19/2020 2:17 PM DIE TRY OUT WORKER STAMPING Pulse 81 07/19/2020 2:17 PM DIE TRY OUT WORKER STAMPING Temperature 36.8 ??C (98.2 ??F) 07/19/2020 2:17 PM CS T Respiratory Rate 20 07/19/2020 2:17 PM DIE TRY OUT WORKER STAMPING Oxygen Saturation 99% 07/19/2020 2:17 PM DIE TRY OUT WORKER STAMPING Inhaled Oxygen Concentration - - Weight 94.3 kg (208 lb) 07/19/2020 2:17 PM DIE TRY OUT WORKER STAMPING Height - - Body Mass Index 29.84 06/27/2020 1:07 PM CDT documented in this encounter Progress Notes * Cody Simms - 07/19/2020 2:00 PM CST CHIEF COMPLAINT: Chief Complaint Patient presents with ??? Follow-up 6 months ??? Knee Pain went to therapy xs 2 SUBJECTIVE: He presents today for six-month follow-up on labs however he did not get labs performed. He is alsohere for follow-up on knee pain for which we did send him to therapy. He states that this is improving and he is performing his own exercises. ROS: Remainder of a 10 point review [...] NEEDED FOR ANXIETY 90 tablet 2 ??? BD HYPODERMIC NEEDLE 18G X 1 MISC Use to draw up testosterone 100 each 5 ??? Cholecalciferol (VITAMIN D PO) Take 5,000 Units by mouth daily ??? clomiPHENE (CLOMID) 50 MG tablet TK 1 T PO 3 TIMES WEEKLY 5 ??? omeprazole (PRILOSEC) 40 MG capsule Take 40 mg by mouth as needed ??? testosterone cypionate (DEPO-TESTOSTERONE) 200 MG/ML injection INJECT 1ML INTO A LARGE MUSCLE Q12 DAYS No current facility-administered medications on file prior to visit. ALLERGIES: Allergies Allergen Reactions ??? Codeine Itching Pt states he feels hot, itchy, and he vomits. PHYSICAL EXAM: VITALS: Vitals: 07/19/20 1417 BP: (!) 162/98 Pulse: 81 Resp: 20 Temp: 98.2 ??F (36.8 ??C) TempSrc: Tympanic SpO2: 99% Weight: 208 lb (94.3 kg) Constitutional: Body mass index is 29.84 kg/m??., No acute distress, Non-toxic appearance. HEENT: [...] edema, Neurologic: grossly intact ASSESMENT & PLAN: Medication management-we did order a basic metabolic panel as we are keeping track of his GFR whichdid dip slightly at his last encounter 6 months ago also ordered a testosterone level and a PSA screen due to his long-term testosterone replacement therapy. Decreased GFR -we did order a BMP he will get this drawn in the next 1-2 weeks and will contact [facility] telephone with the results of that will also order a BMP for his next 6 month follow-up. Follow-up 6 months. Dyslipidemia-I will order lipid profile for when he follows up in 6 months. Testosterone deficiency-we will continue with his current level of testosterone replacement I will order a testosterone level and contact him via telephone with any changes. Final Diagnosis: Encounter Diagnoses Code Name Primary? E34.9 Testosterone deficiency Yes ??? Z79.890 Long-term current use of testosterone replacement therapy ??? R94.4 Decreased GFR ??? E78.5 Dyslipidemia ??? Z79.899 Medication management Visit Orders: Orders Placed This Encounter Procedures ??? PSA Screen Standing Status: Future Standing Expiration Date: 07/19/2021 ??? Basic metabolic panel Standing Status: Future Standing Expiration Date: 07/19/2021 ??? TESTOS FREE/TOT ADULT MALE Standing Status: Future Standing Expiration Date: 07/19/2021 ??? Comprehensive Metabolic Panel (Future 6 Months) Standing Status: Future Standing Expiration Date: 07/19/2021 ??? CBC w/Auto Diff (Future 6 Months) Standing Status: Future Standing Expiration Date: 07/19/2021 ??? Lipid Profile (Future 6 Months) Standing Status: Future Standing Expiration Date: 07/19/2021 ??? TESTOS FREE/TOT ADULT MALE Standing Status: Future Standing Expiration Date: 07/19/2021 DISCHARGE MEDS: Outpatient Encounter Medications as of 07/19/2020 Medication Sig Dispense Refill ??? ALPRAZolam (XANAX) 0.5 MG tablet TAKE ONE TABLET BY MOUTH THREE TIMES DAILY NEEDED FOR ANXIETY 90 tablet 2 ??? BD HYPODERMIC NEEDLE 18G X 1 MISC Use to draw up testosterone 100 each 5 ??? Cholecalciferol (VITAMIN D PO) Take 5,000 Units by mouth daily ??? clomiPHENE (CLOMID) 50 MG tablet TK 1 T PO 3 TIMES WEEKLY 5 ??? omeprazole (PRILOSEC) 40 MG capsule Take 40 mg by mouth as needed ??? testosterone cypionate (DEPO-TESTOSTERONE) 200 MG/ML injection INJECT 1ML INTO A LARGE MUSCLE Q12 DAYS No facility-administered encounter medications on file as of 07/19/2020. 1. The patient indicates understanding of these [...] allergies listed in the above medical record TRY OUT WORKER STAMPING documented in this encounter Plan of Treatment Not on file documented as of this encounter Results * TESTOS FREE/TOT ADULT MALE (07/19/2021 8:45 AM DIE TRY OUT WORKER STAMPING) Total Testosterone 343 300 - 890 ng/dL [facility] Comment: (NOTE) REFERENCE INTERVAL: Testosterone, Adult Male Access complete set of age- and/or gender-specific reference intervals for this test in the [employer] Test Directory ([employer]). Testosterone Free 67 47 - 244 pg/mL [facility] Comment: (NOTE) INTERPRETIVE INFORMATION: ??Testosterone, Free Joel Stage IV ?35 - 169 pg/mL Joel Stage V ? 41 - 239 pg/mL The concentration of Free Testosterone is derived from a mathematical expression based on the constant for the binding of testosterone to Sex Hormone Binding Globulin (SHBG). Access complete set of age- and/or gender-specific reference intervals for this test in the [employer] Test Directory ([employer]). Sex Hormone Binding Globulin 29 (NOTE) REFERENCE INTERVAL: Sex Hormone Binding Globulin Access complete set of age- and/or gender-specif ic reference ??intervals for this test in the [employer] Test Directory ?? ([employer]) . 11 - 80 nmol/L [facility] Testosterone Free Percent 1.9 1.6 - 2.9 % [facility] Comment: (NOTE) Performed By: [facility] [address] [place] [address] Barrel Raiser: Kacy Lewis MD Blood 07/19/2021 8:45 AM DIE TRY OUT WORKER STAMPING 07/19/2021 8:47 AM DIE TRY OUT WORKER STAMPING Cody WORKMAN LAB SEND OUT MALACHIA MAGDALENA [facility] [address] * (ABNORMAL) LIPID PROFILE (07/19/2021 8:45 AM DIE TRY OUT WORKER STAMPING) Cholesterol 177 0 - 200 MG/DL [facility] Triglycerides 100 0 - 150 MG/DL [facility] HDL 41 40 - 60 MG/DL [facility] LDL Cholesterol 116(H) 0 - 100 MG/DL [facility] LDL/HDL Ratio 2.83 [facility] [place] VLDL, Calc 20 0 - 35 MG/DL [facility] [place] Blood 07/19/2021 8:45 AM DIE TRY OUT WORKER STAMPING 07/19/2021 8:47 AM DIE TRY OUT WORKER STAMPING Cody WORKMAN CHEMISTRY ORDERABLE S [facility] [address] * (ABNORMAL) CBC W AUTO DIFF (07/19/2021 8:45 AM DIE TRY OUT WORKER STAMPING) White Blood Cell Count 5.9 4.8 - 9.6 THOUS/uL [facility] Red Blood Cell Count 5.06 4.33 - 5.59 MIL/uL [facility] Hemoglobin 15.8 13.1 - 16.8 GM/DL [facility] Hematocrit 46.1 38.8 - 49.0 % [facility] Mean Corpuscular Volume 91.1 82.7 - 94.4 [facility] [place] Mean Corpuscular Hemoglobin 31.2 27.7 - 32.6 PG [facility] Mean Corpuscular Hemoglobin Conc 34.3 32.4 - 35.7 G/DL [facility] Rdwcv 12.7 11.6 - 13.9 % [facility] Rdwsd 42.4 36.0 - 46.1 [facility] [place] Platelet Count 293 154 - 364 THOUS/uL [facility] Mean Platelet Volume 9.9 8.7 - 11.7 [facility] Nucleated Red Blood Cells 0.0 0.0 /100 WBC'S [facility] Abs NRBC 0.0 0.0 THOUS/uL [facility] [place] Differential Type AUTO FE [facility] [place] Neutrophils 72.6(H) 34.0 - 67.9 % [facility] Lymphs 18.0(L) 19.1 - 41.2 % [facility] Monocytes 7.5 6.1 - 12.3 % [facility] Eos 0.5(L) 0.9 - 7.6 % [facility] Basos 0.9 0.2 - 1.5 % [facility] Neutrophils Absolute Count 4.3 2.7 - 5.8 THOUS/uL [facility] Lymphocytes Absolute Count 1.1 1.1 - 3.3 THOUS/uL [facility] Monocytes Absolute Count 0.4 0.4 - 0.9 THOUS/uL [facility] Eosinophils Absolute Count 0.0(L) 0.1 - 0.6 THOUS/uL [facility] Basophils Absolute Count 0.1 0.0 - 0.1 THOUS/uL [facility] Imm Gran 0.5 0.2 - 0.9 % [facility] Abs Imm Gran 0.03 0.0 - 0.1 THOUS/uL [facility] Blood 07/19/2021 8:45 AM DIE TRY OUT WORKER STAMPING 07/19/2021 8:47 AM DIE TRY OUT WORKER STAMPING Cody WORKMAN HEMATOLOGY ORDERABL ES [facility] [address] [place] [address] * (ABNORMAL) COMPREHENSIVE METABOLIC PANEL (07/19/2021 8:45 AM DIE TRY OUT WORKER STAMPING) Glucose 97 65 - 100 MG/DL [facility] Blood Urea Nitrogen 16 7 - 18 MG/DL [facility] Creatinine 1.2 0.7 - 1.3 MG/DL [facility] Sodium 131(L) 136 - 145 MMOL/L [facility] Potassium 4.0 3.5 - 5.1 MMOL/L [facility] Chloride 94(L) 98 - 107 MMOL/L [facility] Co2 29 21 - 32 MMOL/L [facility] Calcium 8.5 8.5 - 10.1 MG/DL [facility] Protein Total 7.0 6.4 - 8.2 G/DL [facility] Albumin 3.8 3.4 - 5.0 G/DL [facility] A/G Ratio 1.2 0.8 - 2.0 [facility] Alkaline Phosphatase 75 46 - 116 U/L [facility] Alt (SGPT) 39 16 - 63 U/L [facility] AST(SGOT) 19 15 - 37 U/L [facility] Bilirubin, Total 1.1(H) 0.2 - 1.0 MG/DL [facility] GFR Comment IF PATIENT IS , MULTIPLY RESULT BY 1.16 [facility] Est GFR 71(L) >90 ML/MIN/1. 73sq.m [facility] Blood 07/19/2021 8:45 AM DIE TRY OUT WORKER STAMPING 07/19/2021 8:47 AM DIE TRY OUT WORKER STAMPING Cody WORKMAN CHEMISTRY ORDERABLE S Performing Organization Address City/State/[facility] Co de Phone Number [facility] [address] * TESTOS FREE/TOT ADULT MALE (10/11/2020 8:42 AM DIE TRY OUT WORKER STAMPING) Total Testosterone 641 300 - 890 ng/dL [facility] Comment: (NOTE) REFERENCE INTERVAL: Testosterone, Adult Male Access complete set of age- and/or gender-specific reference intervals for this test in the [employer] [facility] Test Directory ([employer]). Testosterone Free 151 47 - 244 pg/mL [facility] Comment: (NOTE) INTERPRETIVE INFORMATION: ??Testosterone, Free Joel Stage IV ?35 - 169 pg/mL Joel Stage V ? 41 - 239 pg/mL The concentration of Free Testosterone is derived from a mathematical expression based on the constant for the binding of testosterone to Sex Hormone Binding Globulin (SHBG). Access complete set of age- and/or gender-specific reference intervals for this test in the [employer] [facility] Test Directory ([employer]). Sex Hormone Binding Globulin 22 (NOTE) REFERENCE INTERVAL: Sex Hormone Binding Globulin Access complete set of age- and/or gender-specif ic reference ??intervals for this test in the [employer] [facility] Test Directory ?? ([employer]) . 11 - 80 nmol/L [facility] Testosterone Free Percent 2.4 1.6 - 2.9 % [facility] [employer] Comment: (NOTE) Performed By: [facility] [address] [place] [address] Barrel Raiser: Kacy Lewis MD Blood 10/11/2020 8:42 AM DIE TRY OUT WORKER STAMPING 10/11/2020 8:44 AM DIE TRY OUT WORKER STAMPING Cody WORKMAN LAB SEND OUT ORDERA BLES Performing Organization Address [facility] Co de Phone Number [facility] [address] [place], [place] [id number] [place] [address] * (ABNORMAL) BASIC METABOLIC PANEL (CHEM8) (10/11/2020 8:42 AM DIE TRY OUT WORKER STAMPING) Pathologist [facility] Glucose 89 65 - 100 MG/DL [facility] [employer] Blood Urea Nitrogen 14 7 - 18 MG/DL [facility] Creatinine 1.3 0.7 - 1.3 MG/DL [facility] Sodium 136 136 - 145 MMOL/L [facility] Potassium 4.0 3.5 - 5.1 MMOL/L [facility] Chloride 98 98 - 107 MMOL/L [facility] Co2 31 21 - 32 MMOL/L [facility] Calcium 8.6 8.5 - 10.1 MG/DL [facility] GFR Comment IF PATIENT IS , MULTIPLY RESULT BY 1.16 [facility] [employer] Est GFR 65(L) >90 ML/MIN/1. 73sq.m [facility] [employer] Blood 10/11/2020 8:42 AM DIE TRY OUT WORKER STAMPING 10/11/2020 8:44 AM DIE TRY OUT WORKER STAMPING Cody WORKMAN CHEMISTRY ORDERABLE S Performing Organization Address [facility] Co de Phone Number [facility] [address] [place] [id number] * PSA SCREEN (10/11/2020 8:42 AM DIE TRY OUT WORKER STAMPING) Prostate Specific Antigen Total 0.55 0.00 - 4.00 NG/ML [facility] [employer] PSA Comment SEE NOTES [facility] Comment: Dimension EXL 200 methodology is a one-step enzyme immunoassay based on the sandwhich principle. ??The concentration of PSA in a given specimen determined with assays from different manufacturers can vary due to differences in assay methods and reagent specificity. Values obtained with different assay methods cannot be used interchangeably. Blood 10/11/2020 8:42 AM DIE TRY OUT WORKER STAMPING 10/11/2020 8:44 AM DIE TRY OUT WORKER STAMPING Cody WORKMAN CHEMISTRY ORDERABLE S [facility] [employer] [address] documented in this encounter Visit Diagnoses Diagnosis Testosterone deficiency- Primary Other testicular hypofunction Long-term current use of testosterone replacement therapy Decreased GFR Nonspecific abnormal results of kidney function study Dyslipidemia Other and unspecified hyperlipidemia Medication management Encounter for long-term (current) use of other medications documented in this encounter Care Teams School Psychology Professor Relationship Specialty Start Date End Date Cody Simms PA [address] [place] [address] PCP - General Physician Jinrikisha Driver 10/24/18 03/10/22 documented as of this encounter
--- OUTSIDE RECORDS SUMMARY | 2024-08-23 12:08 | XMS_ITS | Encounter Summary ---
Author Organization [facility] Address [address] [place] [address] Care Team Providers Care Planetarium Technician Name Role Phone Cody Simms Primary Care Provider [phone] Reason for Referral * Referral (Routine) - Closed Specialty Diagnoses / Procedures Referred By Elieser t Referred To Contact Physical Therapy Diagnoses Left knee pain, unspecified chronicity Cody Simms PA [address] [place] [address] [facility] [address] [place] [address] Referral ID Status Reason Start Date Expiration Date Visits Re quested Visits Authorized [id number] Closed 05/02/2020 1 1 Question Answer Evaluate? Yes Develop Plan of Care? Yes Treatment? Yes Reason for Visit * Reason Comments Follow-up knee and sleep study Encounter Details Date Type Department Care Team (Late st Contact Info) Description 05/02/2020 2:30 PM CDT Office Visit [facility] [address] [place] [address] Cody iSmms PA [address] [place], [place] [id number] Left knee pain, unspecified chronicity (Primary Dx); Patellar tendinitis, unspecified laterality Social History Tobacco Use Types Packs/Day Years [...] Sign Reading Time Taken Comments Blood Pressure 140/72 05/02/2020 2:46 PM CDT Pulse 73 05/02/2020 2:46 PM CDT Temperature 37 ??C (98.6 ??F) 05/02/2020 2:46 PM CDT Respiratory Rate 18 05/02/2020 2:46 PM CDT Oxygen Saturation 98% 05/02/2020 2:46 PM CDT Inhaled Oxygen Concentration - - Weight 91.6 kg (202 lb) 05/02/2020 2:46 PM CDT Height 177.8 cm (5' 10 ) 05/02/2020 2:46 PM CDT Body Mass Index 28.98 05/02/2020 2:46 PM CDT documented in this encounter Progress Notes * Cody Simms - 05/02/2020 2:30 PM CDT CHIEF COMPLAINT: Chief Complaint Patient presents with ??? Follow-up knee and sleep study SUBJECTIVE: He presents today for follow-up on left knee pain which we did see him for 2 weeks ago put him on anti-inflammatory and recommended rest ice elevation and compression he has been doing that and states that it is better but still rates his pain as a 4/10. Also we ordered a sleep study at his last encounter and he has not heard anything about that wanted to check on. No other complaints. ROS: Remainder of a 10 point review [...] USE TO INJECT TESTOSTERONE EVERY DAY FOR 10 DAYS10 each 11 ??? BD HYPODERMIC NEEDLE 18G X 1 MISC USE TO DRAW UP TESTOSTERONE ??? Cholecalciferol (VITAMIN D PO) Take 5,000 Units by mouth daily ??? clomiPHENE (CLOMID) 50 MG tablet TK 1 T PO 3 TIMES WEEKLY 5 ??? omeprazole (PRILOSEC) 40 MG capsule Take 40 mg by mouth as needed ??? testosterone cypionate (DEPO-TESTOSTERONE) 200 MG/ML injection INJECT 1 ML INTO THE MUSCLE EVERY 12 DAYS 10 mL 0 No current facility-administered medications on file prior to visit. ALLERGIES: Allergies Allergen Reactions ??? Codeine Itching Pt states he feels hot, itchy, and he vomits. PHYSICAL EXAM: VITALS: Vitals: 05/02/20 1446 BP: 140/72 Pulse: 73 Resp: 18 Temp: 98.6 ??F (37 ??C) TempSrc: Tympanic SpO2: 98% Weight: 202 lb (91.6 kg) Height: 5' 10 Constitutional: Body mass index is 28.98 kg/m??., No acute distress, Non-toxic appearance. HEENT: [...] distal pulses, No edema, Neurologic: grossly intact Musculoskeletal: There is tenderness with palpation of the patella tendon attachment at the proximal aspect of the patella ASSESMENT & PLAN: Left knee pain/patellar tendinitis-I will get him involved with skilled physical therapy at this point follow-up in 6 weeks. We will check into his sleep study and get back with him on this. Final Diagnosis: Encounter Diagnoses Code Name Primary? M25.562 Left knee pain, unspecified chronicity Yes ??? M76.50 Patellar tendinitis, unspecified laterality Visit Orders: Orders Placed This Encounter Procedures ??? Ambulatory referral to Physical Therapy Referral Priority: Routine Referral Type: Referral Requested Specialty: Physical Therapy Number of Visits Requested: 1 DISCHARGE MEDS: Outpatient Encounter Medications as of 05/02/2020 Medication Sig Dispense Refill ??? ALPRAZolam (XANAX) 0.5 MG tablet TAKE ONE TABLET BY MOUTH THREE TIMES DAILY NEEDED FOR ANXIETY 90 tablet 2 ??? B-D 3CC LUER-JJ SYR 25GX1 25G X 1 3 ML MISC USE TO INJECT TESTOSTERONE EVERY DAY FOR 10 DAYS10 each 11 ??? BD HYPODERMIC NEEDLE 18G X 1 MISC USE TO DRAW UP TESTOSTERONE ??? Cholecalciferol (VITAMIN D PO) Take 5,000 Units by mouth daily ??? clomiPHENE (CLOMID) 50 MG tablet TK 1 T PO 3 TIMES WEEKLY 5 ??? omeprazole (PRILOSEC) 40 MG capsule Take 40 mg by mouth as needed ??? testosterone cypionate (DEPO-TESTOSTERONE) 200 MG/ML injection INJECT 1 ML INTO THE MUSCLE EVERY 12 DAYS 10 mL 0 No facility-administered encounter medications on file as of 05/02/2020. 1. The patient indicates understanding of these [...] allergies listed in the above medical record documented in this encounter Plan of Treatment Scheduled Referrals Name Type Priority Associated Diagnoses Orde r Schedule AMB REFERRAL TO PHYSICAL THERAPY Outpatient Referral Routine Left knee pain, unspecified chronicity Ordered: 05/02/2020 documented as of this encounter Visit Diagnoses Diagnosis Left knee pain, unspecified chronicity- Primary Patellar tendinitis, unspecified laterality documented in this encounter Care Teams Planetarium Technician Relationship Specialty Start Date End Date Cody Simms PA [address] [place] [id number] PCP - General Physician Loom Operator 10/24/18 03/10/22 documented as of this encounter
--- OUTSIDE RECORDS SUMMARY | 2024-08-23 12:08 | XMS_ITS | Encounter Summary ---
Author Organization [facility] Address [address] [place] [address] Care Team Providers Care Taker Off Hemp Fiber Name Role Phone Cody Simms Primary Care Provider +1- [phone] Encounter Details Date Type Department Care Team (Late st Contact Info) Description 10/11/2020 8:50 AM MIXER PIGMENT Lab/X-Ray Only [facility] Lab [address] [place] [address] Frankie Morales MD [address] [place] [phone] Galen Jones, DO [address] [place] [phone] Testosterone deficiency; Long-term current use of testosterone replacement therapy; Decreased GFR Social History Tobacco Use Types Packs/Day Years [...] have Coronavirus / COVID-19? No / Unsure 10/11/2020 8:40 AM MIXER PIGMENT documented as of this encounter Plan of Treatment Not on file documented as of this encounter Procedures Procedure Name Priority Date/Time Associated Diagnosis Comments PSA TOTAL, SCREEN Routine 10/11/2020 8:4 2 AM MIXER PIGMENT Long-term current use of testosterone replacement therapy TESTOS FREE/TOT ADULT MALE Routine 10/11/2020 8:42 AM MIXER PIGMENT Testosterone deficiency Long-term current use of testosterone replacement therapy BASIC METABOLIC PANEL (CHEM8) Routine 10/11/2020 8:42 AM MIXER PIGMENT Decreased GFR documented in this encounter Results * PSA SCREEN (10/11/2020 8:42 AM MIXER PIGMENT) Prostate Specific Antigen Total 0.55 0.00 - 4.00 NG/ML [facility] PSA Comment SEE NOTES [facility] Comment: Dimension EXL 200 methodology is a one-step enzyme immunoassay based on the sandwhich principle. ??The concentration of PSA in a given specimen determined with assays from different manufacturers can vary due to differences in assay methods and reagent specificity. Values obtained with different assay methods cannot be used interchangeably. Blood 10/11/2020 8:42 AM MIXER PIGMENT 10/11/2020 8:44 AM MIXER PIGMENT Cody WORKMAN CHEMISTRY ORDERABLE S Performing Organization Address City/State/[facility] Co de Phone Number [facility] [address] [place] [address] * (ABNORMAL) BASIC METABOLIC PANEL (CHEM8) (10/11/2020 8:42 AM MIXER PIGMENT) Glucose 89 65 - 100 MG/DL [facility] Blood Urea Nitrogen 14 7 - 18 MG/DL [facility] Creatinine 1.3 0.7 - 1.3 MG/DL [facility] Sodium 136 136 - 145 MMOL/L [facility] Potassium 4.0 3.5 - 5.1 MMOL/L [facility] Chloride 98 98 - 107 MMOL/L [facility] Co2 31 21 - 32 MMOL/L [facility] Calcium 8.6 8.5 - 10.1 MG/DL [facility] GFR Comment IF PATIENT IS , MULTIPLY RESULT BY 1.16 [facility] Est GFR 65(L) >90 ML/MIN/1. 73sq.m [facility] Blood 10/11/2020 8:42 AM MIXER PIGMENT 10/11/2020 8:44 AM MIXER PIGMENT Cody WORKMAN CHEMISTRY ORDERABLE S Performing Organization Address City/State/[facility] Co de Phone Number [facility] [address] * TESTOS FREE/TOT ADULT MALE (10/11/2020 8:42 AM MIXER PIGMENT) Pathologist [facility] Total Testosterone 641 300 - 890 ng/dL [facility] Comment: (NOTE) REFERENCE INTERVAL: Testosterone, Adult Male Access complete set of age- and/or gender-specific reference intervals for this test in the [facility] Test Directory ([employer]). Testosterone Free 151 47 - 244 pg/mL [facility] Comment: (NOTE) INTERPRETIVE INFORMATION: ??Testosterone, Free Joel Stage IV ?35 - 169 pg/mL Joel Stage V ? 41 - 239 pg/mL The concentration of Free Testosterone is derived from a mathematical expression based on the constant for the binding of testosterone to Sex Hormone Binding Globulin (SHBG). Access complete set of age- and/or gender-specific reference intervals for this test in the [facility] Test Directory ([employer]). Sex Hormone Binding Globulin 22 (NOTE) REFERENCE INTERVAL: Sex Hormone Binding Globulin Access complete set of age- and/or gender-specif ic reference ??intervals for this test in the [facility] Test Directory ?? ([employer]) . 11 - 80 nmol/L [facility] Testosterone Free Percent 2.4 1.6 - 2.9 % [facility] Comment: (NOTE) Performed By: [facility] [address] [place] [address] Cleaner Operator: Kacy Lewis MD Blood 10/11/2020 8:42 AM MIXER PIGMENT 10/11/2020 8:44 AM MIXER PIGMENT Cody WORKMAN LAB SEND OUT ORDERA BLES [facility] [address] [place] [address], [facility] documented in this encounter Visit Diagnoses Diagnosis Testosterone deficiency Other testicular hypofunction Long-term current use of testosterone replacement therapy Decreased GFR Nonspecific abnormal results of kidney function study documented in this encounter Care Teams Taker Off Hemp Fiber Relationship Specialty Start Date End Date Cody Simms PA [address] [place] [id number] PCP - General Physician Engineering And Operations Director 10/24/18 03/10/22 documented as of this encounter
--- OUTSIDE RECORDS SUMMARY | 2024-08-23 12:08 | XMS_ITS | Encounter Summary ---
Author Organization [facility] Address [address] [place] [address] Care Team Providers Care System Validation Engineer Name Role Phone Cody Simms Primary Care Provider [phone] Reason for Visit * Reason Onset Date Comments Prior Authorization Renewal 09/19/2020 home sleep study Encounter Details Date Type Department Care Team (Late st Contact Info) Description 09/19/2020 Telephone [facility] [address] [place] [address] Cody Simms PA [address] [place] [address] Prior Authorization Renewal (home sleep study) Social History Tobacco Use Types Packs/Day Years [...] Telephone Encounter - Zuleyka Ritter LPN - 09/19/2020 9:59 AM CST Scheduled at [facility] for home sleep study 10/08/2020 at [address] [employer] ENGINEER documented in this encounter Plan of Treatment Not on file documented as of this encounter Visit Diagnoses Not on filedocumented in this encounter Care Teams System Validation Engineer Relationship Specialty Start Date End Date Cody Simms PA [address] [place] [address] PCP - General Physician Change Management Manager 10/24/18 03/10/22 documented as of this encounter
--- OUTSIDE RECORDS SUMMARY | 2024-08-23 12:08 | XMS_ITS | Encounter Summary ---
Author Organization [facility] Address [address] [place] [address] Care Team Providers Care Parcel Carrier Name Role Phone Cody Simms Primary Care Provider +1- [phone] Reason for Visit * Reason Comments Medication Refill Encounter Details Date Type Department Care Team (Late st Contact Info) Description 06/21/2020 Refill [facility] Practice [address] [place] [address] Cody Simms PA [address] [place] [address] Medication Refill Social History Tobacco [...] on filedocumented in this encounter Care Teams Parcel Carrier Relationship Specialty [place] [address] [place] [address] PCP - General Physician School Custodian 10/24/18 03/10/22 documented as of this encounter
--- OUTSIDE RECORDS SUMMARY | 2024-08-23 12:08 | XMS_ITS | Encounter Summary ---
Author Organization [facility] Address [address] [place] [address] Care Team Providers Care Edge Banding Machine Offbearer Name Role Phone Cody Simms Primary Care Provider +1- [phone] Reason for Visit * Reason Onset Date Comments Results 03/03/2021 Encounter Details Date Type Department Care Team (Late st Contact Info) Description 03/03/2021 Telephone [facility] [address] [place] [address] Cody Simms PA [address] [place] [address] Results Social History Tobacco Use Types Packs/Day [...] Telephone Encounter - Marycarmen Edouard LPN - 03/04/2021 6:05 PM CDT All information sent to [facility]! * Telephone Encounter - Cody Simms PA - 03/04/2021 11:16 AM CDT Orders printed * Telephone Encounter - Naina Ramirez LPN - 03/03/2021 3:36 PM CDT Pt is wanting his sleep study results and order for cpap machine done dayanna. Pt said he will call 1 st thing in am documented in this encounter Plan of Treatment Not on file documented as of this encounter Visit Diagnoses Not on filedocumented in this encounter Care Teams Edge Banding Machine Offbearer Relationship Specialty Start Date End Date Cody Simms PA [address] [place] [address] PCP - General Physician Svp Research & Ebusiness Operations 10/24/18 03/10/22 documented as of this encounter
--- OUTSIDE RECORDS SUMMARY | 2024-08-23 12:08 | XMS_ITS | Encounter Summary ---
Author Organization [facility] Address [address] [place] [address] Care Team Providers Care Disposition Clerk Name Role Phone Cody Simms Primary Care Provider +1- [phone] Reason for Visit * Reason Onset Date Comments Medication Refill 07/15/2020 Encounter Details Date Type Department Care Team (Late st Contact Info) Description 07/15/2020 Refill [facility] [address] [place] [address] Cody Simms PA [address] [place] [address] Medication Refill Social History Tobacco [...] COVID-19? No / Unsure 10/11/2020 8:40 AM CIGARETTE STAMPER documented as of this encounter Miscellaneous Notes * Telephone Encounter - Zuleika Joseph CNA - 07/15/2020 3:00 PM CIGARETTE STAMPER Pt called and said he is needing to get a refill on needles to draw up his Testosterone. RETTE STAMPER documented in this encounter Plan of Treatment Not on file documented as of this encounter Visit Diagnoses Diagnosis Testosterone deficiency- Primary Other testicular hypofunction documented in this encounter Care Teams Disposition Clerk Relationship Specialty Start Date End Date Cody Simms PA [address] [place] [address] PCP - General Physician Hand Touch Up Painter 10/24/18 03/10/22 documented as of this encounter
--- OUTSIDE RECORDS SUMMARY | 2024-08-23 12:09 | XMS_ITS | Encounter Summary ---
Author Organization [facility] Address [address] [place] [address] Care Team Providers Care Animal Biologist Name Role Phone Cody Simms Primary Care Provider +1- [phone] Encounter Details Date Type Department Care Team (Late st Contact Info) Description 06/06/2019 11:00 AM CDT Lab/X-Ray Only [facility] Lab [address] [place] [address] Galen Jones, DO [address] [place] [phone] Decreased GFR; Dyslipidemia Social History Tobacco Use Types Packs/Day [...] Diagnosis Comments TESTOS FREE/TOT ADULT MALE Routine 06/06/2019 10:00 AM CDT LIPID PROFILE Routine 06/06/2019 10:00 AM CDT Dyslipidemia COMPREHENSIVE METABOLIC PANEL Routine 06/06/2019 10:00 AM CDT Decreased GFR documented in this encounter Results * TESTOS FREE/TOT ADULT MALE (06/06/2019 10:00 AM CDT) Total Testosterone 375 300 - 890 ng/dL [facility] Comment: (NOTE) REFERENCE INTERVAL: Testosterone, Adult Male Access complete set of age- and/or gender-specific reference intervals for this test in the [facility] Test Directory ([employer]). Testosterone Free 69 47 - 244 pg/mL [facility] Comment: (NOTE) INTERPRETIVE INFORMATION: ??Testosterone, Free Joel Stage IV ?35 - 169 pg/mL Joel Stage V ? 41 - 239 pg/mL The concentration of Free Testosterone is derived from a mathematical expression based on the constant for the binding of testosterone to Sex Hormone Binding Globulin (SHBG). Access complete set of age- and/or gender-specific reference intervals for this test in the [facility] Test Directory ([employer]). Sex Hormone Binding Globulin 33 (NOTE) REFERENCE INTERVAL: Sex Hormone Binding Globulin Access complete set of age- and/or gender-specif ic reference ??intervals for this test in the [facility] Test Directory ?? ([employer]) . 11 - 80 nmol/L [facility] Testosterone Free Percent 1.8 1.6 - 2.9 % [facility] Comment: (NOTE) Performed by [facility], [address] [place] [id number] [email or web address], Da Fleming MD, Lab. Director 06/06/2019 10:0 0 AM CDT 06/06/2019 10:10 AM CDT Galen Jones DO LAB SEND OUT ORDERAB LES [facility] [address] * (ABNORMAL) LIPID PROFILE (06/06/2019 10:00 AM CDT) Cholesterol 184 0 - 200 MG/DL [facility] Triglycerides 180(H) 0 - 150 MG/DL [facility] HDL 32(L) 40 - 60 MG/DL [facility] LDL Cholesterol 116(H) 0 - 100 MG/DL [facility] LDL/HDL Ratio 3.63 [facility] VLDL, Calc 36(H) 0 - 35 MG/DL [facility] Blood 06/06/2019 10:0 0 AM CDT 06/06/2019 10:04 AM CDT Cody WORKMAN CHEMISTRY ORDERABLE S Performing Organization Address City/State/[facility] Co de Phone Number [facility] [address] * (ABNORMAL) COMPREHENSIVE METABOLIC PANEL (06/06/2019 10:00 AM CDT) Glucose 96 65 - 100 MG/DL [facility] Blood Urea Nitrogen 24(H) 7 - 18 MG/DL [facility] Creatinine 1.2 0.7 - 1.3 MG/DL [facility] Sodium 135(L) 136 - 145 MMOL/L [facility] Potassium 3.9 3.5 - 5.1 MMOL/L [facility] Chloride 97(L) 98 - 107 MMOL/L [facility] Co2 30 21 - 32 MMOL/L [facility] Calcium 9.1 8.5 - 10.1 MG/DL [facility] Osmolality 274 mOsm/L [facility] Protein Total 7.7 6.4 - 8.2 G/DL [facility] Albumin 3.9 3.4 - 5.0 G/DL [facility] A/G Ratio 1.0 [facility] Alkaline Phosphatase 58 46 - 116 U/L [facility] Alt (SGPT) 35 16 - 63 U/L [facility] AST(SGOT) 21 15 - 37 U/L [facility] Bilirubin, Total 0.9 0.2 - 1.0 MG/DL [facility] Est GFR >60 >60 ML/MIN/1. 73sq.m [facility] GFR Comment IF PATIENT IS , MULTIPLY RESULT BY 1.21 [facility] Blood 06/06/2019 10:0 0 AM CDT 06/06/2019 10:04 AM CDT Cody WORKMAN CHEMISTRY ORDERABLE S [facility] [address] [place] [address] documented in this encounter Visit Diagnoses Diagnosis Decreased GFR Nonspecific abnormal results of kidney function study Dyslipidemia Other and unspecified hyperlipidemia documented in this encounter Care Teams Animal Biologist Relationship Specialty Start Date End Date Cody Simms PA [address] [place] [address] PCP - General Physician Access Spec 10/24/18 03/10/22 documented as of this encounter
--- OUTSIDE RECORDS SUMMARY | 2024-08-23 12:09 | XMS_ITS | Encounter Summary ---
Author Organization [facility] Address [address] [place] [address] Care Team Providers Care Business Broker Name Role Phone Cody Simms Primary Care Provider +1- [phone] Reason for Visit * Reason Comments Medication Refill Encounter Details Date Type Department Care Team ([facility] st Contact Info) Description 12/29/2019 Refill [facility] Practice [address] [place] [address] Cody Simms PA [address] [place] [address] Medication Refill Social History Tobacco Use Types [...] on filedocumented in this encounter Care Teams Business Broker Relationship Specialty Start Date End Date Cody Simms PA [address] [place] [address] PCP - General Physician Record Searcher 10/24/18 03/10/22 documented as of this encounter
--- OUTSIDE RECORDS SUMMARY | 2024-08-23 12:09 | XMS_ITS | Encounter Summary ---
Author Organization [facility] Address [address] [place] [address] Care Team Providers Care Design Lead Name Role Phone Cody Simms Primary Care Provider +1- [phone] Reason for Visit * Reason Comments Medication Refill Encounter Details Date Type Department Care Team ([facility] st Contact Info) Description 04/19/2020 Refill [facility] [address] [place] [address] Cody Simms PA [address] [place] [address] Medication Refill Social History Tobacco Use Types [...] hypofunction documented in this encounter Care Teams Design Lead Relationship Specialty Start Date End Date Cody Simms PA [address] [place] [address] PCP - General Physician Event Marketing Assistant 10/24/18 03/10/22 documented as of this encounter
--- OUTSIDE RECORDS SUMMARY | 2024-08-23 12:09 | XMS_ITS | Encounter Summary ---
Author Organization [facility] Address [address] [place] [address] Care Team Providers Care Structural Metal Worker Name Role Phone Cody Simms Primary Care Provider +1 [phone] Reason for Visit * Reason Comments Follow-up pt is here for follo w up and is feeling good Encounter Details Date Type Department Care Team (Late st Contact Info) Description 01/05/2020 2:30 PM CDT Office Visit [facility] [address] [place] [address] Cody Simms PA [address] [place] [address] Testosterone deficiency (Primary Dx); Decreased GFR; Dyslipidemia Social History Tobacco Use [...] have Coronavirus / COVID-19? No / Unsure 01/04/2020 10:08 AM CDT documented as of this encounter Last Filed Vital Signs Vital Sign Reading Time Taken Comments Blood Pressure 120/80 01/05/2020 2:52 PM CDT Pulse 78 01/05/2020 2:52 PM CDT Temperature 36.7 ??C (98 ??F) 01/05/2020 2:52 PM CDT Respiratory Rate 20 01/05/2020 2:52 PM CDT Oxygen Saturation 98% 01/05/2020 2:52 PM CDT Inhaled Oxygen Concentration - - Weight 93.4 kg (206 lb) 01/05/2020 2:52 PM CDT Height 177.8 cm (5' 10 ) 01/05/2020 2:52 PM CDT Body Mass Index 29.56 01/05/2020 2:52 PM CDT documented in this encounter Progress Notes * Cody Simms - 01/05/2020 2:30 PM CDT CHIEF COMPLAINT: Chief Complaint Patient presents with ??? Follow-up pt is here for follow up and is feeling good SUBJECTIVE: He presents today for follow-up on labs. The CBC is satisfactory. The CMP in his satisfactory except an elevated BUN and creatinine and decreased GFR however they have held steady since our lab draw 3 months ago. We did order a nephrology consultation and they did not seem concerned about his decreased GFR and told him to intake more fluids. Triglycerides have increased slightly from 208 to 275. He does report that he is taking Nash 3 fish oil but he has only been taking 1 capsule daily which she believes is 800-900 mg. His HDL has improved slightly from 29-31. He is doing well with the testosterone supplementation and all testosterone labs were satisfactory. He does not currently need anyrefills on medication. ROS: Remainder of a 10 point review [...] 3 ML MISC USE TO INJECT TESTOSTERONE QD FOR 10 DAYS 9 ??? Cholecalciferol (VITAMIN D PO) Take 5,000 Units by mouth daily ??? clomiPHENE (CLOMID) 50 MG tablet TK 1 T PO 3 TIMES WEEKLY 5 ??? omeprazole (PRILOSEC) 40 MG capsule Take 40 mg by mouth as needed No current facility-administered medications on file prior to visit. ALLERGIES: Allergies Allergen Reactions ??? Codeine Itching Pt states he feels hot, itchy, and he vomits. PHYSICAL EXAM: VITALS: Vitals: 01/05/20 1452 BP: 120/80 Pulse: 78 Resp: 20 Temp: 98 ??F (36.7 ??C) TempSrc: Tympanic SpO2: 98% Weight: 93.4 kg (206 lb) Height: 5' 10 Constitutional: Body mass index is 29.56 kg/m??., No acute distress, Non-toxic appearance. HEENT: [...] edema, Neurologic: grossly intact ASSESMENT & PLAN: Decreased GFR-his GFR is holding steady at 55. We did get him to Nephrology for consult and they donot see any needed changes in medication they did tell him to intake more fluids. We will redraw a CMP and a CBC in 3-5 months with follow-up. Testosterone deficiency-we will continue as previously prescribed all testosterone levels are satisfactory. Will redraw testosterone levels in 3-5 months with follow-up. Dyslipidemia-I did increase his fish oil from 1 capsule daily to 2 capsules daily and we will redraw lipid profile in approximately 3-5 months with follow- up. We did discuss diet and exercise changesas well. Final Diagnosis: Encounter Diagnoses Code Name Primary? E34.9 Testosterone deficiency Yes ??? R94.4 Decreased GFR ??? E78.5 Dyslipidemia Visit Orders: Orders Placed This Encounter Procedures ??? Lipid Profile (Future 3 Months) Standing Status: Future Standing Expiration Date: 07/03/2020 ??? Comprehensive Metabolic Panel (Future 3 Months) Standing Status: Future Standing Expiration Date: 07/03/2020 ??? CBC w/Auto Diff (Future 3 Months) Standing Status: Future Standing Expiration Date: 07/03/2020 ??? TESTOS FREE/TOT ADULT MALE Standing Status: Future Standing Expiration Date: 01/04/2021 DISCHARGE MEDS: Outpatient Encounter Medications as of 01/05/2020 Medication Sig Dispense Refill ??? ALPRAZolam (XANAX) 0.5 MG tablet TAKE ONE TABLET BY MOUTH THREE TIMES DAILY NEEDED FOR ANXIETY 90 tablet 2 ??? B-D 3CC LUER-JJ SYR 25GX1 25G X 1 3 ML MISC USE TO INJECT TESTOSTERONE QD FOR 10 DAYS 9 ??? Cholecalciferol (VITAMIN D PO) Take 5,000 Units by mouth daily ??? clomiPHENE (CLOMID) 50 MG tablet TK 1 T PO 3 TIMES WEEKLY 5 ??? omeprazole (PRILOSEC) 40 MG capsule Take 40 mg by mouth as needed No facility-administered encounter medications on file as of 01/05/2020. 1. The patient indicates understanding of these [...] Diagnosis Testosterone deficiency- Primary Other testicular hypofunction Decreased GFR Nonspecific abnormal results of kidney function study Dyslipidemia Other and unspecified hyperlipidemia documented in this encounter Care Teams Structural Metal Worker Relationship Specialty Start Date End Date Cody Simms PA [address] [place] [address] PCP - General Physician Sap Bi Architect 10/24/18 03/10/22 documented as of this encounter
--- OUTSIDE RECORDS SUMMARY | 2024-08-23 12:09 | XMS_ITS | Encounter Summary ---
Author Organization [facility] Address [address] [place] [address] Care Team Providers Care Offbearer Sewer Pipe Name Role Phone Cody Simms Primary Care Provider [phone]- [phone] Reason for Visit * Reason Comments Medication Refill Encounter Details Date Type Department Care Team ([facility] st Contact Info) Description 10/06/2019 Refill [facility] Practice [address] [place] [address] Cody Simms PA [address] [place] [address] Medication Refill Social History Tobacco Use Types [...] on filedocumented in this encounter Care Teams Offbearer Sewer Pipe Relationship Specialty Start Date End Date Cody Simms PA [address] [place] [address] PCP - General Physician Manifold Operator 10/24/18 03/10/22 documented as of this encounter
--- OUTSIDE RECORDS SUMMARY | 2024-08-23 12:09 | XMS_ITS | Encounter Summary ---
Author Organization [facility] Address [address] [place] [address] Care Team Providers Care Sewer Digger Name Role Phone Cody Simms Primary Care Provider [phone]- [phone] Reason for Visit * Reason Comments Follow-up 3 month Results labs Medication Refill testosterone 10 ml v ial and 18 gauge needles and Clomid Encounter Details Date Type Department Care Team (Late st Contact Info) Description 03/10/2019 2:30 PM CDT Office Visit [facility] [address] [place] [address] Cody Simms PA [address] [place] [address] IGGY (generalized anxiety disorder) (Primary Dx); Hypotestosteronemia; Dyslipidemia; Decreased GFR Social History Tobacco Use Types [...] Sign Reading Time Taken Comments Blood Pressure 124/82 03/10/2019 2:39 PM CDT Pulse 69 03/10/2019 2:39 PM CDT Temperature 36.1 ??C (97 ??F) 03/10/2019 2:39 PM CDT Respiratory Rate 20 03/10/2019 2:39 PM CDT Oxygen Saturation 98% 03/10/2019 2:39 PM CDT Inhaled Oxygen Concentration - - Weight 85.3 kg (188 lb) 03/10/2019 2:39 PM CDT Height 177.8 cm (5' 10 ) 03/10/2019 2:39 PM CDT Body Mass Index 26.98 03/10/2019 2:39 PM CDT documented in this encounter Progress Notes * Cody Simms Hugh - 03/10/2019 2:30 PM CDT CHIEF COMPLAINT: Chief Complaint Patient presents with ??? Follow-up 3 month ??? Results labs ??? Medication Refill testosterone 10 ml vial and 18 gauge needles and Clomid SUBJECTIVE: He presents today iIn order to review three-month follow-up laboratory studies and to follow up on testosterone replacement therapy which we adjusted at his last encounter to every 12 days. Current testosterone level is 550 and free testosterone is 106 and satisfactory. We also obtain a PSA which is normal at 0.9 CBC, TSH, and vitamin-D are all satisfactory. Lipid profile shows some pain and dyslipidemia which triglycerides 163 cholesterol 218 HDL 31 and LDL 154 he states that he has gone off of his low cholesterol diet and that he will get back on it rather than beginning any kind of medications. On his last encounter we did note a a decreasing GFR within elevating BUN and creatinine in wereferred him to Nephrology and they told him to drink more water. We did obtain a CMP this time andBUN is elevated at 24 creatinine is elevated at 1.4 and GFR has decreased slightly to 58. He also brings in a form for his work which she wishes for us to complete. He states that overall he is feeling wonderful and is happy with where he is at. He states that the Xanax is working well for his anxiety and producing no current side effects. ROS: Remainder of a 10 point review [...] NEEDED FOR ANXIETY 90 tablet 2 ??? Cholecalciferol (VITAMIN D PO) Take 5,000 Units by mouth daily ??? [DISCONTINUED] clomiPHENE (CLOMID) 50 MG tablet TK 1 T PO 3 TIMES WEEKLY 36 tablet 0 ??? [DISCONTINUED] NEEDLE, DISP, 18 G 18G X 1 MISC Use 18 g needle to draw up testosterone then switch back to 25 g needle to give the injection 10 each 0 ??? omeprazole (PRILOSEC) 40 MG capsule Take 40 mg by mouth as needed ??? [DISCONTINUED] testosterone cypionate (DEPO-TESTOSTERONE) 200 MG/ML injection INJECT 1 ML INTO THE MUSCLE EVERY 12 DAYS 10 mL 0 No current facility-administered medications on file prior to visit. ALLERGIES: Allergies Allergen Reactions ??? Codeine Itching Pt states he feels hot, itchy, and he vomits. PHYSICAL EXAM: VITALS: Vitals: 03/10/19 1439 BP: 124/82 Pulse: 69 Resp: 20 Temp: 97 ??F (36.1 ??C) TempSrc: Tympanic SpO2: 98% Weight: 85.3 kg (188 lb) Height: 5' 10 Constitutional: Body mass index is 26.98 kg/m??., No acute distress, Non-toxic appearance. HEENT: [...] grossly intact ASSESMENT & PLAN: Generalized anxiety disorder- we did refill Xanax as previously prescribed it is producing no current side effects and is working well. We did check with the prescription monitoring program and that is compliant. We will obtain a urine drug screen at his next encounter. Hypotestosteronemia- current testosterone levels 550 in satisfactory we will continue with the testosterone replacement at 1 milligram every 12 days. Dyslipidemia- he does have some slight dyslipidemia gone on he will of focus to get back on his low-cholesterol diet and we will redraw a lipid panel in 3 months with follow-up. Decreased GFR -we did refer him to nephrology they did not seem to worry about is decreasing GFR told him to drink more water will redraw CMP in 3 months to further assess this.He has been taking high levels of protein previously because of his weight lifting and I did advise him to decrease that amount Final Diagnosis: Encounter Diagnoses Code Name Primary? F41.1 IGGY (generalized anxiety disorder) Yes ??? E34.9 Hypotestosteronemia ??? E78.5 Dyslipidemia ??? R94.4 Decreased GFR Visit Orders: Orders Placed This Encounter Procedures ??? Lipid Profile (Future 3 Months) Standing Status: Future Standing Expiration Date: 09/06/2019 ??? Comprehensive Metabolic Panel (Future 3 Months) Standing Status: Future Standing Expiration Date: 09/06/2019 ??? Testosterone, Total And Free, Serum Standing Status: Future Standing Expiration Date: 03/10/2020 DISCHARGE MEDS: Outpatient Encounter Medications as of 03/10/2019 Medication Sig Dispense Refill ??? ALPRAZolam (XANAX) 0.5 MG tablet TAKE ONE TABLET BY MOUTH THREE TIMES DAILY NEEDED FOR ANXIETY 90 tablet 2 ??? Cholecalciferol (VITAMIN D PO) Take 5,000 Units by mouth daily ??? [START ON 04/04/2019] clomiPHENE (CLOMID) 50 MG tablet TK 1 T PO 3 TIMES WEEKLY 36 tablet 5 ??? [DISCONTINUED] clomiPHENE (CLOMID) 50 MG tablet TK 1 T PO 3 TIMES WEEKLY 36 tablet 0 ??? NEEDLE, DISP, 18 G 18G X 1 MISC Use 18 g needle to draw up testosterone then switch back to 25g needle to give the injection 10 each 5 ??? [DISCONTINUED] NEEDLE, DISP, 18 G 18G X 1 MISC Use 18 g needle to draw up testosterone then switch back to 25 g needle to give the injection 10 each 0 ??? omeprazole (PRILOSEC) 40 MG capsule Take 40 mg by mouth as needed ??? [START ON 04/04/2019] testosterone cypionate (DEPO-TESTOSTERONE) 200 MG/ML injection INJECT 1 MLINTO THE MUSCLE EVERY 12 DAYS 10 mL 0 ??? [DISCONTINUED] testosterone cypionate (DEPO-TESTOSTERONE) 200 MG/ML injection INJECT 1 ML INTO THE MUSCLE EVERY 12 DAYS 10 mL 0 No facility-administered encounter medications on file as of 03/10/2019. 1. The patient indicates understanding of these [...] as of this encounter Results * (ABNORMAL) COMPREHENSIVE METABOLIC PANEL (06/06/2019 10:00 AM CDT) Glucose 96 65 - 100 MG/DL [facility] Blood Urea Nitrogen 24(H) 7 - 18 MG/DL [facility] Creatinine 1.2 0.7 - 1.3 MG/DL [facility] Sodium 135(L) 136 - 145 MMOL/L [facility] Potassium 3.9 3.5 - 5.1 MMOL/L [facility] Chloride 97(L) 98 - 107 MMOL/L [facility] Co2 30 21 - 32 MMOL/L [facility] Calcium 9.1 8.5 - 10.1 MG/DL [facility] Osmolality 274 mOsm/L [facility] Protein Total 7.7 6.4 - 8.2 G/DL [facility] Albumin 3.9 3.4 - 5.0 G/DL [facility] A/G Ratio 1.0 [facility] Alkaline Phosphatase 58 46 - 116 U/L [facility] Alt (SGPT) 35 16 - 63 U/L [facility] AST(SGOT) 21 15 - 37 U/L [facility] Bilirubin, Total 0.9 0.2 - 1.0 MG/DL [facility] Est GFR >60 >60 ML/MIN/1. 73sq.m [facility] GFR Comment IF PATIENT IS , MULTIPLY RESULT BY 1.21 [facility] Blood 06/06/2019 10:0 0 AM CDT 06/06/2019 10:04 AM CDT Cody WORKMAN CHEMISTRY ORDERABLE S Performing Organization Address City/[facility]/ZIP Co de Phone Number [facility] [address] * (ABNORMAL) LIPID PROFILE (06/06/2019 10:00 AM CDT) Cholesterol 184 0 - 200 MG/DL [facility] Triglycerides 180(H) 0 - 150 MG/DL [facility] HDL 32(L) 40 - 60 MG/DL [facility] LDL Cholesterol 116(H) 0 - 100 MG/DL [facility] LDL/HDL Ratio 3.63 [facility] VLDL, Calc 36(H) 0 - 35 MG/DL [facility] Blood 06/06/2019 10:0 0 AM CDT 06/06/2019 10:04 AM CDT Cody WORKMAN CHEMISTRY ORDERABLE S Performing Organization Address City/[facility]/ZIP Co de Phone Number [facility] [address] [place] [address] documented in this encounter Visit Diagnoses Diagnosis IGGY (generalized anxiety disorder)- Primary Generalized anxiety disorder Hypotestosteronemia Dyslipidemia Other and unspecified hyperlipidemia Decreased GFR Nonspecific abnormal results of kidney function study documented in this encounter Care Teams Sewer Digger Relationship Specialty Start Date End Date Cody Simms PA [address] [place] [place] [address] PCP - General Physician Bench Mover 10/24/18 03/10/22 documented as of this encounter
--- OUTSIDE RECORDS SUMMARY | 2024-08-23 12:09 | XMS_ITS | Encounter Summary ---
Author Organization [facility] Address [address] [place] [address] Care Team Providers Care Club Director Name Role Phone Cody Simms Primary Care Provider +1- [phone] Reason for Visit * Reason Comments Medication Refill Encounter Details Date Type Department Care Team ([facility] st Contact Info) Description 02/06/[address] [facility] [address] [place] [address] Cody Simms PA [address] [place] [address] Medication Refill Social History Tobacco Use Types [...] on filedocumented in this encounter Care Teams Club Director Relationship Specialty Start Date End Date Coyd Simms PA [address] [place] [address] PCP - General Physician Resource Agent 10/24/18 03/10/22 documented as of this encounter
--- OUTSIDE RECORDS SUMMARY | 2024-08-23 12:09 | XMS_ITS | Encounter Summary ---
Author Organization [facility] Address [address] [place] [address] Care Team Providers Care Medical Parasitologist Name Role Phone Cody Simms Primary Care Provider +1- [phone] Reason for Visit * Reason Comments Medication Refill Encounter Details Date Type Department Care Team ([facility] st Contact Info) Description 08/23/2018 Refill [facility] [address] [place] [address] Cody Simms PA [address] [place], [place] [address] Medication Refill Social History Tobacco Use Types [...] encounter Miscellaneous Notes * Telephone Encounter - SinkZuleika hadley CNA - 08/23/2018 3:08 PM OCCUPATIONAL THERAPY ASSISTANT Pt is wanting to know if he can get the xanax filled on Sat because he is leaving out of town Wednesday. Please call back PATIONAL THERAPY ASSISTANT documented in this encounter Plan of Treatment Not on file documented as of this encounter Visit Diagnoses Not on filedocumented in this encounter Care Teams Medical Parasitologist Relationship Specialty Start Date End Date Cody Simms PA [address] [place] [id number] PCP - General Physician Dental Hygiene Administrative Assistant 10/24/18 03/10/22 documented as of this encounter
--- OUTSIDE RECORDS SUMMARY | 2024-08-23 12:09 | XMS_ITS | Encounter Summary ---
Author Organization [facility] Address [address] [place] [address] Care Team Providers Care Shipsmith Name Role Phone Cody Simms Primary Care Provider +1- [phone] Encounter Details Date Type Department Care Team (Late st Contact Info) Description 02/27/2019 Orders Only [facility] [address] [place] [address] Cody Simms PA [address] [place] [address] Screening for prostate cancer; Encounter for monitoring testosterone replacement therapy; Encounter for vitamin deficiency screening; Screening for thyroid disorder; Screening for lipid disorders; Medication management Social History Tobacco Use Types [...] Associated Diagnosis Comments TSH THIRD GENERATION Routine 02/27/2019 9:45 AM CDT Screening for thyroid disorder VITAMIN D 25 HYDROXY Routine 02/27/2019 9:45 AM CDT Encounter for vitamin deficiency screening PSA TOTAL, SCREEN Routine 02/27/2019 9:4 5 AM CDT Screening for prostate cancer CBC W AUTO DIFF Routine 02/27/2019 9:45 AM CDT Medication management LIPID PROFILE Routine 02/27/2019 9:45 AM CDT Screening for lipid disorders COMPREHENSIVE METABOLIC PANEL Routine 02/27/2019 9:45 AM CDT Medication management TESTOSTERONE, TOTAL AND FREE, SERUM Routine 02/27/2019 Encounter for monitoring testosterone replacement therapy documented in this encounter Results * CBC W AUTO DIFF (02/27/2019 9:45 AM CDT) White Blood Cell Count 5.10 4.00 TO 11.00 K/uL [facility] Neutrophils 56.4 34.0 TO 67.9 % [facility] Lymphs 29.4 21.8 TO 53.1 % [facility] Monocytes 11.40 5.3 TO 12.2 % [facility] Eos 2.20 0.8 TO 7.0 % [facility] Basos 0.60 0.2 TO 1.2 % [facility] Neutrophils Absolute Count 2.88 1.78 TO 5.38 K/uL [facility] Lymphocytes Absolute Count 1.50 1.32 TO 3.57 K/uL [facility] Monocytes Absolute Count 0.58 0.30 TO 0.82 K/uL [facility] Eosinophils Absolute Count 0.11 0.04 TO 0.54 K/uL [facility] Basophils Absolute Count 0.03 0.01 TO 0.08 K/uL [facility] Red Blood Cell Count 5.45 4.63 TO 6.08 M/uL [facility] Hemoglobin 16.9 13.7 TO 17.5 g/dL [facility] Hematocrit 49.1 40.1 TO 51.0 % [facility] Mean Corpuscular Volume 90.1 79.0 TO 92.2 fL [facility] Mean Corpuscular Hemoglobin 31.0 25.7 TO 32.2 pg [facility] Mean Corpuscular Hemoglobin Conc 34.4 32.3 TO 36.5 g/dL [facility] Red Cell Distribution Width 13.1 11.6 TO 14.4 % [facility] Platelet Count 227 130 TO 450 K/uL [facility] Mean Platelet Volume 10.30 8.1 TO 12.4 fL [facility] Platelet Estimate [facility] RBC Morphology NORMAL [facility] Peripheral Smear YES [facility] Blood 02/27/2019 9:45 AM CDT Cody WORKMAN HEMATOLOGY ORDERABL ES Performing Organization Address City/[facility]/ZIP Co de Phone Number [address] * (ABNORMAL) COMPREHENSIVE METABOLIC PANEL (02/27/2019 9:45 AM CDT) Glucose 101(H) 65 TO 100 mg/dL [facility] Blood Urea Nitrogen 24(H) 7 TO 18 mg/dL [facility] Creatinine 1.4(H) 0.7 TO 1.3 mg/dL [facility] Sodium 137 136 TO 145 mmol/L [facility] Potassium 3.9 3.5 TO 5.1 mmol/L [facility] Chloride 98 98 TO 107 mmol/L [facility] Co2 35(H) 21 TO 32 mmol/L [facility] Calcium 8.9 8.5 TO 10.1 mg/dL [facility] Osmolality 278 273 TO 304 mOsm/L [facility] Protein Total 7.4 6.4 TO 8.2 mg/dL [facility] Albumin 3.8 3.4 TO 5.0 g/dL [facility] Globulin 3.6 2.4 TO 4.2 g/dL [facility] A/G Ratio 1.1 0.8 TO 2.0 [facility] Alkaline Phosphatase 61 46 TO 116 U/L [facility] Alt (SGPT) 39 16 TO 63 U/L [facility] AST(SGOT) 26 15 TO 37 U/L [facility] Bilirubin, Total 1.3(H) 0.2 TO 1.0 mg/dL [facility] Est GFR 58(L) 60 TO 150 mL/min/1.7 3m*2 [facility] Blood 02/27/2019 9:45 AM CDT Cody WORKMAN CHEMISTRY ORDERABLE S Performing Organization Address City/[facility]/ZIP Co de Phone Number [address] * (ABNORMAL) LIPID PROFILE (02/27/2019 9:45 AM CDT) Triglycerides 163(H) 0 TO 150 mg/dL [facility] Cholesterol 218(H) 0 TO 200 mg/dL [facility] HDL 31(L) 35 TO 60 mg/dL [facility] LDL Cholesterol 154(H) 0 TO 100 mg/dL [facility] VLDL, Calc 32.6 0.0 TO 35.0 mg/dL [facility] LDL/HDL Ratio 7.0(H) 3.0 TO 6.0 [facility] Blood 02/27/2019 9:45 AM CDT Cody WORKMAN CHEMISTRY ORDERABLE S Performing Organization Address [facility] Phone Number [address] * TSH THIRD GENERATION (02/27/2019 9:45 AM CDT) Pathologist [facility] TSH High Sensitivity 1.48 0.30 TO 3.04 uIU/mL [facility] Blood 02/27/2019 9:45 AM CDT Cody WORKMAN CHEMISTRY ORDERABLE S Performing Organization Address [facility] Phone Number [address] * VITAMIN D 25 HYDROXY (02/27/2019 9:45 AM CDT) Pathologist [facility] Vit D 25 Hydroxy 53.6 30.0 TO 100.0 ng/mL [facility] 02/27/2019 9:45 AM CDT Cody WORKMAN CHEMISTRY ORDERABLE S Performing Organization Address [facility] Co mo Phone Number [address] * PSA SCREEN (02/27/2019 9:45 AM CDT) Prostate Specific Antigen Total 0.9 0.1 TO 4.0 ng/mL [facility] Blood 02/27/2019 9:45 AM CDT Cody WORKMAN CHEMISTRY ORDERABLE S Performing Organization Address [facility] Co de Phone Number [address] * TESTOSTERONE, TOTAL AND FREE, SERUM (02/27/2019) Cody WORKMAN LAB SEND OUT ORDERA BLES Performing Organization Address [facility] Co de Phone Number [address] documented in this encounter Visit Diagnoses Diagnosis Screening for prostate cancer Special screening for malignant neoplasm of prostate Encounter for monitoring testosterone replacement therapy Encounter for therapeutic drug monitoring Encounter for vitamin deficiency screening Screening for other and unspecified endocrine, nutritional, metabolic, and immunity disorders Screening for thyroid disorder Screening for lipid disorders Medication management Encounter for long-term (current) use of other medications documented in this encounter Care Teams Shipsmith Relationship Specialty Start Date End Date Cody Simms PA [address] [place] [address] PCP - General Physician Resolution Agent 10/24/18 03/10/22 documented as of this encounter
--- OUTSIDE RECORDS SUMMARY | 2024-08-23 12:09 | XMS_ITS | Encounter Summary ---
Author Organization [facility] Address [address] [place] [address] Care Team Providers Care Certified Lactation Educator Name Role Phone Cody Simms Primary Care Provider +1- [phone] Reason for Visit * Reason Comments Medication Refill Encounter Details Date Type Department Care Team ([facility] st Contact Info) Description 08/07/2019 Refill [facility] [address] [place] [address] Cody Simms PA [address] [place] [address] Medication Refill Social History Tobacco Use Types [...] on filedocumented in this encounter Care Teams Certified Lactation Educator Relationship Specialty Start Date End Date Cody Simms PA [address] [place] [id number] PCP - General Physician English And Reading Instructor 10/24/18 03/10/22 documented as of this encounter
--- OUTSIDE RECORDS SUMMARY | 2024-08-23 12:09 | XMS_ITS | Encounter Summary ---
Author Organization [facility] Address [address] [place] [address] Care Team Providers Care Back Stayer Name Role Phone Cody Simms Primary Care Provider [phone] Encounter Details Date Type Department Care Team (Late st Contact Info) Description 09/09/2019 9:00 AM FIRST COAT OPERATOR Lab/X-Ray Only [facility] [address] [place] [phone] Cody Simms PA [address] [place], [place] [address] Endocrine disorder (Primary Dx); Dyslipidemia; Hypotestosteronemia Social History Tobacco Use Types Packs/Day Years [...] Diagnosis Comments TESTOS FREE/TOT ADULT MALE Routine 09/09/2019 8:41 AM FIRST COAT OPERATOR Dyslipidemia Hypotestosteronemi a Endocrine disorder ESTRADIOL Routine 09/09/2019 8:41 AM FIRST COAT OPERATOR Dyslipidemia Hypotestosteronemi a Endocrine disorder CBC W AUTO DIFF Routine 09/09/2019 8:41 AM FIRST COAT OPERATOR Hypotestosteronemi a LIPID PROFILE Routine 09/09/2019 8:41 AM FIRST COAT OPERATOR Dyslipidemia COMPREHENSIVE METABOLIC PANEL Routine 09/09/2019 8:41 AM FIRST COAT OPERATOR Hypotestosteronemi a documented in this encounter Results * ESTRADIOL (09/09/2019 8:41 AM FIRST COAT OPERATOR) Estradiol Level 30 pg/mL [facility] Comment: (NOTE) Test was ordered on a male or a child <18 years old. Suggest ordering Tandem Mass Spectrometry for Estradiol, Males or Children, Test Code [id number]. INTERPRETIVE INFORMATION: Estradiol, Adult Premenopausal ? Female Early Follicular Phase..22-115 pg/mL Mid Follicular Phase....25-115 pg/mL Ovulatory Peak Phase....32-517 pg/mL Mid Luteal Phase........37-246 pg/mL Post-menopausal...less than 25 pg/mL Performed by [employer], [address] [place] [address] www.[email or web address], Da Fleming MD, Lab. Director Blood 09/09/2019 8:41 AM FIRST COAT OPERATOR 09/09/2019 8:43 AM FIRST COAT OPERATOR Cody WORKMAN CHEMISTRY ORDERABLE S [facility] [address] [place] [address], [facility] * TESTOS FREE/TOT ADULT MALE (09/09/2019 8:41 AM FIRST COAT OPERATOR) Total Testosterone 456 300 - 890 ng/dL [facility] Comment: (NOTE) REFERENCE INTERVAL: Testosterone, Adult Male Access complete set of age- and/or gender-specific reference intervals for this test in the [facility] ([employer]). Testosterone Free 84 47 - 244 pg/mL [facility] Comment: (NOTE) INTERPRETIVE INFORMATION: ??Testosterone, Free Joel Stage IV ?35 - 169 pg/mL Joel Stage V ? 41 - 239 pg/mL The concentration of Free Testosterone is derived from a mathematical expression based on the constant for the binding of testosterone to Sex Hormone Binding Globulin (SHBG). Access complete set of age- and/or gender-specific reference intervals for this test in the [facility] ([employer]). Sex Hormone Binding Globulin 34 (NOTE) REFERENCE INTERVAL: Sex Hormone Binding Globulin Access complete set of age- and/or gender-specif ic reference ??intervals for this test in the [facility] ?? ([employer]) . 11 - 80 nmol/L [facility] Testosterone Free Percent 1.8 1.6 - 2.9 % [facility] Comment: (NOTE) Performed by [employer], [address] [place] [id number] www.[employer], Da Fleming MD, Lab. Director Blood 09/09/2019 8:41 AM FIRST COAT OPERATOR 09/09/2019 8:43 AM FIRST COAT OPERATOR Cody WORKMAN LAB SEND OUT ORDERA BLES [facility] [address] * (ABNORMAL) CBC W AUTO DIFF (09/09/2019 8:41 AM FIRST COAT OPERATOR) Pathologist [facility] White Blood Cell Count 6.4 4.8 - 9.6 THOUS/uL [facility] Red Blood Cell Count 5.25 4.33 - 5.59 MIL/uL [facility] Hemoglobin 15.4 13.1 - 16.8 GM/DL [facility] Hematocrit 47.2 38.8 - 49.0 % [facility] Mean Corpuscular Volume 89.9 82.7 - 94.4 [facility] Mean Corpuscular Hemoglobin 29.3 27.7 - 32.6 PG [facility] Mean Corpuscular Hemoglobin Conc 32.6 32.4 - 35.7 G/DL [facility] Rdwcv 12.8 11.6 - 13.9 % [facility] Rdwsd 42.3 36.0 - 46.1 [facility] Platelet Count 253 154 - 364 THOUS/uL [facility] Mean Platelet Volume 10.1 8.7 - 11.7 [facility] Nucleated Red Blood Cells 0.0 0.0 /100 WBC'S [facility] Abs NRBC 0.0 0.0 THOUS/uL [facility] Differential Type AUTO FE [facility] Neutrophils 61.5 34.0 - 67.9 % [facility] Lymphs 23.5 19.1 - 41.2 % [facility] Monocytes 11.2 6.1 - 12.3 % [facility] Eos 1.9 0.9 - 7.6 % [facility] Basos 0.8 0.2 - 1.5 % [facility] Neutrophils Absolute Count 4.0 2.7 - 5.8 THOUS/uL [facility] Lymphocytes Absolute Count 1.5 1.1 - 3.3 THOUS/uL [facility] Monocytes Absolute Count 0.7 0.4 - 0.9 THOUS/uL [facility] Eosinophils Absolute Count 0.1 0.1 - 0.6 THOUS/uL [facility] Basophils Absolute Count 0.1 0.0 - 0.1 THOUS/uL [facility] Imm Gran 1.1(H) 0.2 - 0.9 % [facility] Abs Imm Gran 0.07 0.0 - 0.1 THOUS/uL [facility] Blood 09/09/2019 8:41 AM FIRST COAT OPERATOR 09/09/2019 8:43 AM FIRST COAT OPERATOR Cody WORKMAN HEMATOLOGY ORDERABL ES Performing Organization Address [facility] Co de Phone Number [facility] [address] [place] [id number] * (ABNORMAL) COMPREHENSIVE METABOLIC PANEL (09/09/2019 8:41 AM FIRST COAT OPERATOR) Glucose 105(H) 65 - 100 MG/DL [facility] Blood Urea Nitrogen 20(H) 7 - 18 MG/DL [facility] Creatinine 1.4(H) 0.7 - 1.3 MG/DL [facility] Sodium 135(L) 136 - 145 MMOL/L [facility] Potassium 3.9 3.5 - 5.1 MMOL/L [facility] Chloride 100 98 - 107 MMOL/L [facility] Co2 31 21 - 32 MMOL/L [facility] Calcium 8.5 8.5 - 10.1 MG/DL [facility] Osmolality 273 273 - 304 mOsm/L [facility] Protein Total 6.8 6.4 - 8.2 G/DL [facility] Albumin 3.5 3.4 - 5.0 G/DL [facility] A/G Ratio 1.1 0.8 - 2.0 [facility] Alkaline Phosphatase 60 46 - 116 U/L [facility] Alt (SGPT) 44 16 - 63 U/L [facility] AST(SGOT) 20 15 - 37 U/L [facility] Bilirubin, Total 0.6 0.2 - 1.0 MG/DL [facility] Est GFR 54(L) >60 ML/MIN/1. 73sq.m [facility] GFR Comment IF PATIENT IS , MULTIPLY RESULT BY 1.21 [facility] Blood 09/09/2019 8:41 AM FIRST COAT OPERATOR 09/09/2019 8:43 AM FIRST COAT OPERATOR Cody WORKMAN CHEMISTRY ORDERABLE S [facility] [address] [place] [address] * (ABNORMAL) LIPID PROFILE (09/09/2019 8:41 AM FIRST COAT OPERATOR) Cholesterol 199 0 - 200 MG/DL [facility] Triglycerides 208(H) 0 - 150 MG/DL [facility] HDL 29(L) 40 - 60 MG/DL [facility] LDL Cholesterol 128(H) 0 - 100 MG/DL [facility] LDL/HDL Ratio 4.41 [facility] VLDL, Calc 42(H) 0 - 35 MG/DL [facility] Blood 09/09/2019 8:41 AM FIRST COAT OPERATOR 09/09/2019 8:43 AM FIRST COAT OPERATOR Cody WORKMAN CHEMISTRY ORDERABLE S Performing Organization Address [facility] Co de Phone Number [facility] [address] [place] [address] documented in this encounter Visit Diagnoses Diagnosis Endocrine disorder- Primary Unspecified endocrine disorder Dyslipidemia Other and unspecified hyperlipidemia Hypotestosteronemia documented in this encounter Care Teams Back Stayer Relationship Specialty Start Date End Date Cody Simms PA [address] [place] [address] PCP - General Physician Regional Owner Operator Truck Driver 10/24/18 03/10/22 documented as of this encounter
--- OUTSIDE RECORDS SUMMARY | 2024-08-23 12:09 | XMS_ITS | Encounter Summary ---
Author Organization [facility] Address [address] [place] [address] Care Team Providers Care Intervention Analyst Name Role Phone Haile Singh MD Primary Care Provider [phone] Encounter Details Date Type Department Care Team (Late st Contact Info) Description 09/07/2018 Orders Only [facility] [address] [place] [address] Cody Simms, PA [address] [place] [address] Medication management; Dyslipidemia; Hyperglycemia; Hypovitaminosis D; Hypotestosteronemia; Screening PSA (prostate specific antigen) Social History Tobacco Use Types Packs/Day Years [...] Procedure Name Priority Date/Time Associated Diagnosis Comments TESTOSTERONE, TOTAL AND FREE, SERUM Routine 09/08/2018 Medication management TSH THIRD GENERATION Routine 09/07/2018 12:06 PM FOOD PRODUCT INSPECTOR Hypotestosteronemi a PSA TOTAL, SCREEN Routine 09/07/2018 12: 06 PM FOOD PRODUCT INSPECTOR Screening PSA (prostate specific antigen) CBC W AUTO DIFF Routine 09/07/2018 12:06 PM FOOD PRODUCT INSPECTOR Hypovitaminosis D HEMOGLOBIN A1C Routine 09/07/2018 12:06 PM FOOD PRODUCT INSPECTOR Hyperglycemia LIPID PROFILE Routine 09/07/2018 12:06 PM FOOD PRODUCT INSPECTOR Dyslipidemia COMPREHENSIVE METABOLIC PANEL Routine 09/07/2018 12:06 PM FOOD PRODUCT INSPECTOR Hyperglycemia documented in this encounter Results * TESTOSTERONE, TOTAL AND FREE, SERUM (09/08/2018) Cody WORKMAN LAB SEND OUT ORDERA BLES Performing Organization Address [facility] Co de Phone Number [address] * HEMOGLOBIN A1C (09/07/2018 12:06 PM FOOD PRODUCT INSPECTOR) Pathologist [facility] Hemoglobin A1C 5.6 4.5 TO 6.2 % [facility] Blood 09/07/2018 12:0 6 PM FOOD PRODUCT INSPECTOR Cody WORKMAN CHEMISTRY ORDERABLE S Performing Organization Address [facility] Co de Phone Number [address] * PSA SCREEN (09/07/2018 12:06 PM FOOD PRODUCT INSPECTOR) Pathologist [facility] Prostate Specific Antigen Total 0.8 0.1 TO 4.0 ng/mL [facility] Blood 09/07/2018 12:0 6 PM FOOD PRODUCT INSPECTOR Cody WORKMAN CHEMISTRY ORDERABLE S Performing Organization Address City/[facility]/ZIP Co de Phone Number [address] * TSH THIRD GENERATION (09/07/2018 12:06 PM FOOD PRODUCT INSPECTOR) Pathologist [facility] TSH High Sensitivity 0.68 0.30 TO 3.04 uIU/mL [facility] Blood 09/07/2018 12:0 6 PM FOOD PRODUCT INSPECTOR Cody WORKMAN CHEMISTRY ORDERABLE S [address] * (ABNORMAL) CBC W AUTO DIFF (09/07/2018 12:06 PM FOOD PRODUCT INSPECTOR) White Blood Cell Count 5.14 4.00 TO 11.00 K/uL [facility] Neutrophils 63.6 34.0 TO 67.9 % [facility] Lymphs 25.5 21.8 TO 53.1 % [facility] Monocytes 8.90 5.3 TO 12.2 % [facility] Eos 1.40 0.8 TO 7.0 % [facility] Basos 0.60 0.2 TO 1.2 % [facility] Neutrophils Absolute Count 3.27 1.78 TO 5.38 K/uL [facility] Lymphocytes Absolute Count 1.31(L) 1.32 TO 3.57 K/uL [facility] Monocytes Absolute Count 0.46 0.30 TO 0.82 K/uL [facility] Eosinophils Absolute Count 0.07 0.04 TO 0.54 K/uL [facility] Basophils Absolute Count 0.03 0.01 TO 0.08 K/uL [facility] Red Blood Cell Count 5.51 4.63 TO 6.08 M/uL [facility] Hemoglobin 16.3 13.7 TO 17.5 g/dL [facility] Hematocrit 49.1 40.1 TO 51.0 % [facility] Mean Corpuscular Volume 89.1 79.0 TO 92.2 [facility] Mean Corpuscular Hemoglobin 29.6 25.7 TO 32.2 pg [facility] Mean Corpuscular Hemoglobin Conc 33.2 32.3 TO 36.5 g/dL [facility] Red Cell Distribution Width 13.8 11.6 TO 14.4 % [facility] Platelet Count 231 130 TO 450 K/uL [facility] Mean Platelet Volume 9.80 8.1 TO 12.4 [facility] Blood 09/07/2018 12:0 6 PM FOOD PRODUCT INSPECTOR Cody WORKMAN HEMATOLOGY ORDERABL ES [address] * (ABNORMAL) COMPREHENSIVE METABOLIC PANEL (09/07/2018 12:06 PM FOOD PRODUCT INSPECTOR) Glucose 102(H) 65 TO 100 mg/dL [facility] Blood Urea Nitrogen 32(H) 7 TO 18 mg/dL [facility] Creatinine 1.3 0.7 TO 1.3 mg/dL [facility] Sodium 142 136 TO 145 mmol/L [facility] Potassium 4.4 3.5 TO 5.1 mmol/L [facility] Chloride 103 98 TO 107 mmol/L [facility] Co2 30 21 TO 32 mmol/L [facility] Calcium 8.9 8.5 TO 10.1 mg/dL [facility] Osmolality 290 273 TO 304 mOsm/L [facility] Protein Total 7.7 6.4 TO 8.2 mg/dL [facility] Albumin 3.9 3.4 TO 5.0 g/dL [facility] Globulin 3.8 2.4 TO 4.2 g/dL [facility] A/G Ratio 1.0 0.8 TO 2.0 [facility] Alkaline Phosphatase 67 46 TO 116 U/L [facility] Alt (SGPT) 38 16 TO 63 U/L [facility] AST(SGOT) 22 15 TO 37 U/L [facility] Bilirubin, Total 1.0 0.2 TO 1.0 mg/dL [facility] Est GFR 63 60 TO 150 mL/min/1.7 3m*2 [facility] Blood 09/07/2018 12:0 6 PM FOOD PRODUCT INSPECTOR Cody WORKMAN CHEMISTRY ORDERABLE S Performing Organization Address City/[facility] Co de Phone Number [address] * (ABNORMAL) LIPID PROFILE (09/07/2018 12:06 PM FOOD PRODUCT INSPECTOR) Triglycerides 78 0 TO 150 mg/dL [facility] Cholesterol 177 0 TO 200 mg/dL [facility] HDL 36 35 TO 60 mg/dL [facility] LDL Cholesterol 125(H) 0 TO 100 mg/dL [facility] VLDL, Calc 15.6 0.0 TO 35.0 mg/dL [facility] LDL/HDL Ratio 4.9 3.0 TO 6.0 [facility] Blood 09/07/2018 12:0 6 PM FOOD PRODUCT INSPECTOR Cody WORKMAN CHEMISTRY ORDERABLE S Performing Organization Address City/State/[facility] Co de Phone Number [address] documented in this encounter Visit Diagnoses Diagnosis Medication management Encounter for long-term (current) use of other medications Dyslipidemia Other and unspecified hyperlipidemia Hyperglycemia Other abnormal glucose Hypovitaminosis D Unspecified vitamin D deficiency Hypotestosteronemia Screening PSA (prostate specific antigen) Special screening for malignant neoplasm of prostate documented in this encounter Care Teams Intervention Analyst Relationship Specialty Start Date End Date Haile Singh MD [address] [place] [address] PCP - General Family Medicine 10/13/13 09/22/18 documented as of this encounter
--- OUTSIDE RECORDS SUMMARY | 2024-08-23 12:09 | XMS_ITS | Encounter Summary ---
Author Organization [facility] Address [address] [place] [address] Care Team Providers Care Prior Authorization Nurse Name Role Phone Haile Singh MD Primary Care Provider [phone] Reason for Referral * Referral (Routine) - Closed Specialty Diagnoses / Procedures Referred By Contac t Referred To Contact Nephrology Diagnoses Decreased GFR Cody Simms PA [address] [place] [address] Babatunde Oliva MD [address] [place] [address] Referral ID Status Reason Start Date Expiration Date V isits Requested Visits Authorized [id number] Closed Consult 09/21/2018 1 1 T ROLLER COVERMAKER Encounter Details Date Type Department Care Team (Late st Contact Info) Description 09/21/2018 Orders Only [facility] Medicine [address] [place] [address] [place] [address] Cody Simms PA [address] [place] [address] Decreased GFR (Primary Dx) Social History Tobacco Use Types [...] of this encounter Plan of Treatment Scheduled Referrals Name Type Priority Associated Diagnoses Order Schedule AMB REFERRAL TO NEPHROLOGY Outpatient Referral Routine Decreased GFR Ordered: 09/21/2018 documented as of this encounter Visit Diagnoses Diagnosis Decreased GFR- Primary Nonspecific abnormal results of kidney function study documented in this encounter Care Teams Prior Authorization Nurse Relationship Specialty Start Date End Date Haile Singh MD [address] [place] [address] PCP - General Family Medicine 10/13/13 09/22/18 documented as of this encounter
--- OUTSIDE RECORDS SUMMARY | 2024-08-23 12:09 | XMS_ITS | Encounter Summary ---
Author Organization [facility] Address [address] [place] [address] Care Team Providers Care Cupola Repairer Name Role Phone Cody Simms Primary Care Provider Reason for Visit * Reason Comments Dizziness been this way since december. gets dizzy at time sometime even when sitting. needs testosterone filled Encounter Details Date Type Department Care Team (Latest Contact Info) Description 02/06/2020 11:00 AM CDT Office Visit [facility] [address] [place] [address] Cody Simms PA [address] [place] [address] Testosterone insufficiency (Primary Dx); Vertigo Social History Tobacco Use Types Packs/Day Years Used Date Smoking Tobacco: Former Cigarettes Q uit: 01/22/2015 Smokeless Tobacco: Former Tobacco Cessation:Counseling Given: No Alcohol Use Standard Drinks/Week Comments Yes 0 [...] have Coronavirus / COVID-19? No / Unsure 02/05/2020 10:25 AM CDT documented as of this encounter Last Filed Vital Signs Vital Sign Reading Time Taken Comments Blood Pressure 130/70 02/06/2020 11:07 AM CDT Pulse 86 02/06/2020 11:07 AM CDT Temperature 36.6 ??C (97.9 ??F) 02/06/2020 11:07 AM C DT Respiratory Rate 18 02/06/2020 11:07 AM CDT Oxygen Saturation 98% 02/06/2020 11:07 AM CDT Inhaled Oxygen Concentration - - Weight 93 kg (205 lb) 02/06/2020 11:07 AM CDT Height 177.8 cm (5' 10 ) 02/06/2020 11:07 AM CDT Body Mass Index 29.41 02/06/2020 11:07 AM CDT documented in this encounter Progress Notes * Cody Simms - 02/06/2020 11:00 AM CDT CHIEF COMPLAINT: Chief Complaint Patient presents with ??? Dizziness been this way since december. gets dizzy at time sometime even when sitting. needs testosterone filled SUBJECTIVE: He presents today for dizziness for the past month or so especially when he changes position quickly. He has had no sinus congestion. No fever nausea vomiting or diarrhea. He also needs refill on testosterone which he is taking due to testosterone insufficiency. He is doing very well on the currentdose. ROS: Remainder of a 10 point review of systems is negative other than above PROBLEM LIST: Patient Active Problem List Diagnosis Code ??? IGGY (generalized anxiety disorder) F41.1 ??? Hyperglycemia R73.9 ??? Family history of diabetes mellitus Z83.3 ??? Dyslipidemia E78.5 ??? Hypovitaminosis D E55.9 ??? Azotemia R79.89 MEDICATIONS Current Outpatient Medications on File Prior to Visit Medication Sig Dispense Refill ??? B-D 3CC LUER-JJ SYR 25GX1 25G [...] and he vomits. PHYSICAL EXAM: VITALS: Vitals: 02/06/20 1107 BP: 130/70 Pulse: 86 Resp: 18 Temp: 97.9 ??F (36.6 ??C) TempSrc: Temporal SpO2: 98% Weight: 93 kg (205 lb) Height: 5' 10 Constitutional: Body mass index is 29.41 kg/m??., No acute distress, Non-toxic appearance. HEENT: [...] edema, Neurologic: grossly intact ASSESMENT & PLAN: Testosterone insufficiency-we did refill testosterone as previously prescribed. We did measure his testosterone 2 months ago and it was satisfactory we will order a new testosterone level for when hefollows up in 3 months. Vertigo-I did give him a home exercise routine for vestibular rehabilitation. He is going to try this on his own and if he does not see improvement he will contact me for formal therapy consult to perform vestibular rehabilitation. If he does not improve further investigation may be warranted. Follow-up 1 month if no improvement is seen. Final Diagnosis: Encounter Diagnoses Code Name Primary? E34.9 Testosterone insufficiency Yes ??? R42 Vertigo Visit Orders: No orders of the defined types were placed in this encounter. DISCHARGE MEDS: Outpatient Encounter Medications as of 02/06/2020 Medication Sig Dispense Refill ??? B-D 3CC LUER-JJ SYR 25GX1 25G X 1 3 ML MISC USE TO INJECT TESTOSTERONE QD FOR 10 DAYS 9 ??? [DISCONTINUED] BD HYPODERMIC NEEDLE 18G X 1 MISC USE TO DRAW UP TESTOSTERONE ??? Cholecalciferol (VITAMIN D PO) Take 5,000 Units by mouth daily ??? clomiPHENE (CLOMID) 50 MG tablet TK 1 T PO 3 TIMES WEEKLY 5 ??? omeprazole (PRILOSEC) 40 MG capsule Take 40 mg by mouth as needed ??? testosterone cypionate (DEPO-TESTOSTERONE) 200 MG/ML injection INJECT 1 ML INTO A LARGE MUSCLE EVERY 12 DAYS 10 mL 2 No facility-administered encounter medications on file as of 02/06/2020. 1. The patient indicates understanding of these [...] of this encounter Visit Diagnoses Diagnosis Testosterone insufficiency- Primary Other testicular hypofunction Vertigo Dizziness and giddiness documented in this encounter Care Teams Cupola Repairer Relationship Specialty Start Date End Date Cody Simms PA [address] [place] [address] PCP - General Physician Assistant Analyst 10/24/18 03/10/22 documented as of this encounter
--- OUTSIDE RECORDS SUMMARY | 2024-08-23 12:09 | XMS_ITS | Encounter Summary ---
Author Organization [facility] Address [address] [place] [address] Care Team Providers Care Slitter Creaser Slotter Helper Name Role Phone Cody Simms Primary Care Provider [phone] Reason for Visit * Reason Comments Knee Pain last few months left knee is hurting taking IBU for the pain Other Sleep study Encounter Details Date Type Department Care Team (Late st Contact Info) Description 04/25/2020 2:30 PM CDT Office Visit [facility] [address] [place] [address] Cody Simms PA [address] [place] [address] Snoring (Primary Dx); Acute pain of left knee; Sleep disorder Social History Tobacco Use Types Packs/Day Years [...] have Coronavirus / COVID-19? No / Unsure 04/25/2020 3:15 PM CDT documented as of this encounter Last Filed Vital Signs Vital Sign Reading Time Taken Comments Blood Pressure 140/78 04/25/2020 2:53 PM CDT Pulse 82 04/25/2020 2:53 PM CDT Temperature 36.9 ??C (98.4 ??F) 04/25/2020 2:53 PM CD T Respiratory Rate 18 04/25/2020 2:53 PM CDT Oxygen Saturation 97% 04/25/2020 2:53 PM CDT Inhaled Oxygen Concentration - - Weight 91.2 kg (201 lb) 04/25/2020 2:53 PM CDT Height 177.8 cm (5' 10 ) 04/25/2020 2:53 PM CDT Body Mass Index 28.84 04/25/2020 2:53 PM CDT documented in this encounter Progress Notes * Cody Simms - 04/25/2020 2:30 PM CDT CHIEF COMPLAINT: Chief Complaint Patient presents with ??? Knee Pain last few months left knee is hurting taking IBU for the pain ??? Other Sleep study SUBJECTIVE: He presents today for Left knee pain which began a few months ago hurting around his patella therefore he stopped doing squat lifts thinking that that would help the pain and it has not. The only thing that helps the pain is ibuprofen and ice pack. He can remember no particular injury which began his pain. His second complaint is he believes he has sleep apnea due to excessive snoring, his spouse reports that he stops breathing for long periods of time during his sleep. He does have an increased neck girth of nearly 18 in. He also explains excessive daytime sleepiness. ROS: Remainder of a 10 point review [...] EVERY 12 DAYS 10 mL 2 No current facility-administered medications on file prior to visit. ALLERGIES: Allergies Allergen Reactions ??? Codeine Itching Pt states he feels hot, itchy, and he vomits. PHYSICAL EXAM: VITALS: Vitals: 04/25/20 1453 BP: 140/78 Pulse: 82 Resp: 18 Temp: 98.4 ??F (36.9 ??C) TempSrc: Tympanic SpO2: 97% Weight: 201 lb (91.2 kg) Height: 5' 10 Constitutional: Body mass index is 28.84 kg/m??., No acute distress, Non-toxic appearance. HEENT: [...] edema, Neurologic: grossly intact ASSESMENT & PLAN: Acute left knee pain-we will obtain a radiograph to rule out bony abnormality and if this is negative we will move towards a steroid injection of the left knee I also recommended rest ice compressionelevation and appropriate levels of NSAIDs. Snoring/sleep disorder/excessive daytime sleepiness/increased neck girth-I do believe that he may have sleep apnea from the clinical presentation I will order a sleep study and the patient wishes to have that performed at [facility] will follow-up when the results are back for further recommendations. Final Diagnosis: Encounter Diagnoses Code Name Primary? R06.83 Snoring Yes ??? M25.562 Acute pain of left knee ??? G47.9 Sleep disorder Visit Orders: Orders Placed This Encounter Procedures ??? XR Knee Left 3 Views Standing Status: Future Number of Occurrences: 1 Standing Expiration Date: 04/25/2021 Order Specific Question: Reason for exam: Answer: left patella pain ??? Contact Sleep Center Patient requests sleep center at [facility] phone [phone] DISCHARGE MEDS: Outpatient Encounter Medications as of 04/25/2020 Medication Sig Dispense Refill ??? ALPRAZolam (XANAX) [...] facility-administered encounter medications on file as of 04/25/2020. 1. The patient indicates understanding of these [...] documented as of this encounter Results * XR KNEE LEFT 3 VIEWS (04/25/2020 3:27 PM CDT) Anatomical Region Laterality Modality Knee Radiographic Matilda ging 04/25/2020 3:17 PM CDT Narrative 04/25/2020 4:25 PM CDT PROCEDURE: CR knee three views left INDICATION: Left patella pain TECHNIQUE: Three views of the left knee COMPARISON: None FINDINGS: No fracture or dislocation. There is a small circumscribed lucency in the patella which could reflect a degenerative subchondral cyst. The joint spaces are preserved. No joint effusion. The soft tissues are within normal limits. IMPRESSION: Small cyst in the patella, which may be degenerative in nature. No fracture or dislocation. Electronically signed by: ??yNasia Ferreira MD ??04/25/2020 4:25 PM CDT Procedure Note Nyasia Ferreira MD - 04/25/2020 PROCEDURE: CR knee three views left INDICATION: Left patella pain TECHNIQUE: Three views of the left knee COMPARISON: None FINDINGS: No fracture or dislocation. There is a small circumscribed lucency in thepatella which could reflect a degenerative subchondral cyst. The joint spaces are preserved.No joint effusion. The soft tissues are within normal limits. IMPRESSION: Small cyst in the patella, which may be degenerative in nature. Nofracture or dislocation. Electronically signed by: Nyasia Ferreira MD 04/25/2020 4:25 PM CDTWorkstation: [id number] Cody WORKMAN [facility] DI[facility] ORDERA BLES documented in this encounter Visit Diagnoses Diagnosis Snoring- Primary Other dyspnea and respiratory abnormality Acute pain of left knee Sleep disorder Sleep disturbance, unspecified Acute pain of left knee documented in this encounter Care Teams Slitter Creaser Slotter Helper Relationship Specialty Start Date End Date Cody Simms PA [address] [place] [id number] PCP - General Physician Screen Printing Machine Operator Helper 10/24/18 03/10/22 documented as of this encounter
--- OUTSIDE RECORDS SUMMARY | 2024-08-23 12:09 | XMS_ITS | Encounter Summary ---
Author Organization [facility] Address [address] [place] [address] Care Team Providers Care Ingot Buggy Operator Name Role Phone Haile Singh MD Primary Care Provider [phone] Reason for Visit * Reason Comments Results labs states he is fe eling better brought with him his scripts , is not seeing the specialist at [facility] anymore for his testosterone Encounter Details Date Type Department Care Team (Latest Contact Info) Description 09/16/2018 1:30 PM SLOT MACHINE REPAIRER Office Visit [facility] [address] [place] [address] Cody Simms, PA [address] [place] [address] Hypotestosteronemia (Primary Dx); Decreased GFR Social History Tobacco Use Types [...] Sign Reading Time Taken Comments Blood Pressure 124/80 09/16/2018 1:38 PM SLOT MACHINE REPAIRER Pulse 71 09/16/2018 1:38 PM SLOT MACHINE REPAIRER Temperature 36.6 ??C (97.8 ??F) 09/16/2018 1:38 PM CS T Respiratory Rate 20 09/16/2018 1:38 PM SLOT MACHINE REPAIRER Oxygen Saturation 98% 09/16/2018 1:38 PM SLOT MACHINE REPAIRER Inhaled Oxygen Concentration - - Weight 82.6 kg (182 lb) 09/16/2018 1:38 PM SLOT MACHINE REPAIRER Height 177.8 cm (5' 10 ) 09/16/2018 1:38 PM SLOT MACHINE REPAIRER Body Mass Index 26.11 09/16/2018 1:38 PM SLOT MACHINE REPAIRER documented in this encounter Progress Notes * Cody Simms - 09/16/2018 1:30 PM CST CHIEF COMPLAINT: Chief Complaint Patient presents with ??? Results labs states he is feeling better brought with him his scripts , is not seeing the specialist at [facility] anymore for his testosterone SUBJECTIVE: He presents today for 3 month follow-up and review of labs to include lipid panel which has improved significantly the only abnormality is a slightly elevated LDL of 125, CMP shows a glucose of 102 and an elevated BUN of 32 he reports that he has been on a high protein diet recently also his GFR has decreased from the 70s down to 63. CBC, TSH, PSA, and A1c is satisfactory . Testosterone is low at215 he is currently on 200 milligrams every 14 days. ROS: Remainder of a 10 point review of systems is negative other than above PROBLEM LIST: Patient Active Problem List Diagnosis Code ??? IGGY (generalized anxiety disorder) F41.1 ??? Hyperglycemia R73.9 ??? Family history of diabetes mellitus Z83.3 ??? Dyslipidemia E78.5 ??? Hypovitaminosis D E55.9 MEDICATIONS Current Outpatient Prescriptions on File Prior to Visit Medication Sig Dispense Refill ??? ALPRAZolam (XANAX) 0.5 MG tablet TAKE ONE TABLET BY MOUTH THREE TIMES DAILY NEEDED FOR ANXIETY 90 Tab 2 ??? Cholecalciferol (VITAMIN D PO) Take 5,000 Units by mouth daily ??? omeprazole (PRILOSEC) 40 MG capsule Take 40 mg by mouth as needed No current facility-administered medications on file prior to visit. ALLERGIES: Allergies Allergen Reactions ??? Codeine Itching Pt states he feels hot, itchy, and he vomits. PHYSICAL EXAM: VITALS: Vitals: 09/16/18 1338 BP: 124/80 Pulse: 71 Resp: 20 Temp: 97.8 ??F (36.6 ??C) TempSrc: Tympanic SpO2: 98% Weight: 82.6 kg (182 lb) Height: 5' 10 Constitutional: Body mass index is 26.11 kg/m??., No acute distress, Non-toxic appearance. HEENT: [...] edema, Neurologic: grossly intact ASSESMENT & PLAN: Hypotestosteronemia-we will increase the frequency that he administers is testosterone up to 10 days and redraw testosterone in 3 months with follow-up. Decreased GFR increased BUN-would like to refer him to Nephrology for consultation on this I did recommend that he decrease the amount of protein in the diet. Final Diagnosis: Encounter Diagnoses Code Name Primary? E34.9 Hypotestosteronemia Yes ??? R94.4 Decreased GFR Visit Orders: Orders Placed This Encounter Procedures ??? Testosterone, free, total Standing Status: Future Standing Expiration Date: 09/16/2019 DISCHARGE MEDS: Outpatient Encounter Prescriptions as of 09/16/2018 Medication Sig Dispense Refill ??? ALPRAZolam (XANAX) 0.5 MG tablet TAKE ONE TABLET BY MOUTH THREE TIMES DAILY NEEDED FOR ANXIETY 90 Tab 2 ??? Cholecalciferol (VITAMIN D PO) Take 5,000 Units by mouth daily ??? clomiPHENE (CLOMID) 50 MG tablet TK 1 T PO 3 TIMES WEEKLY 36 Tab 0 ??? [DISCONTINUED] clomiPHENE (CLOMID) 50 MG tablet TK 1 T PO 3 TIMES WEEKLY 1 ??? NEEDLE, DISP, 18 G 18G X 1 MISC Use 18 g needle to draw up testosterone then switch back to 25g needle to give the injection 10 Each 0 ??? omeprazole (PRILOSEC) 40 MG capsule Take 40 mg by mouth as needed ??? SYRINGE-NEEDLE, DISP, 3 ML 25G X 1 3 ML MISC Use to inject testosterone every 10 days 10 Each 11 ??? testosterone cypionate (DEPO-TESTOSTERONE) 200 MG/ML injection INJECT 1 ML INTO THE MUSCLE EVERY 10 DAYS 10 mL 0 ??? [DISCONTINUED] testosterone cypionate (DEPO-TESTOSTERONE) 200 MG/ML injection INJECT 1 ML INTO THE MUSCLE EVERY 14 DAYS 5 No facility-administered encounter medications on file as of 09/16/2018. 1. The patient indicates understanding of these [...] allergies listed in the above medical record MACHINE REPAIRER documented in this encounter Plan of Treatment Not on file documented as of this encounter Results * TESTOSTERONE TOTAL FREE (12/02/2018) Blood Cody WORKMAN CHEMISTRY ORDERABLE S Performing Organization Address City/State/[facility] Co de Phone Number [address] documented in this encounter Visit Diagnoses Diagnosis Hypotestosteronemia- Primary Decreased GFR Nonspecific abnormal results of kidney function study documented in this encounter Care Teams Ingot Buggy Operator Relationship Specialty Start Date End Date Haile Singh MD [address] [place] [address] PCP - General Family Medicine 10/13/13 09/22/18 documented as of this encounter
--- OUTSIDE RECORDS SUMMARY | 2024-08-23 12:09 | XMS_ITS | Encounter Summary ---
Author Organization [facility] Address [address] [place] [address] Care Team Providers Care Steam Drier Operator Name Role Phone Cody Simms Primary Care Provider [phone]- [phone] Reason for Visit * Reason Comments Medication Refill Encounter Details Date Type Department Care Team ([facility] st Contact Info) Description 11/21/2018 Refill [facility] [address] [place] [address] Cody Simms PA [address] [place] [address] Medication Refill Social History Tobacco Use Types [...] on filedocumented in this encounter Care Teams Steam Drier Operator Relationship Specialty Start Date End Date Cody Simms PA [address] [place] [id number] PCP - General Physician Collector Of Internal Revenue 10/24/18 03/10/22 documented as of this encounter
--- OUTSIDE RECORDS SUMMARY | 2024-08-23 12:09 | XMS_ITS | Encounter Summary ---
Author Organization [facility] Address [address] [place] [address] Care Team Providers Care Author Agent Name Role Phone Cody Simms Primary Care Provider [phone]- [phone] Reason for Visit * Reason Comments Medication Refill Encounter Details Date Type Department Care Team ([facility] st Contact Info) Description 02/14/2019 Refill [facility] [address] [place] [address] Cody Simms PA [address] [place] [address] Medication Refill Social History Tobacco Use Types [...] on filedocumented in this encounter Care Teams Author Agent Relationship Specialty Start Date End Date Cody Simms PA [address] [place] [id number] PCP - General Physician Machine Container Washer 10/24/18 03/10/22 documented as of this encounter
--- OUTSIDE RECORDS SUMMARY | 2024-08-23 12:09 | XMS_ITS | Encounter Summary ---
Author Organization [facility] Address [address] [place] [address] Care Team Providers Care Credit Union Field Examiner Name Role Phone Cody Simms Primary Care Provider [phone]- [phone] Reason for Visit * Reason Comments Medication Refill Encounter Details Date Type Department Care Team ([facility] st Contact Info) Description 05/11/[address] [facility] [address] [place] [address] Cody Simms PA [address] [place] [address] Medication Refill Social History Tobacco Use Types [...] on filedocumented in this encounter Care Teams Credit Union Field Examiner Relationship Specialty Start Date End Date Cody Simms PA [address] [place] [id number] PCP - General Physician Pressurised Container Filler 10/24/18 03/10/22 documented as of this encounter
--- OUTSIDE RECORDS SUMMARY | 2024-08-23 12:09 | XMS_ITS | Encounter Summary ---
Author Organization [facility] Address [address] [place] [address] Care Team Providers Care Herbarium Worker Name Role Phone Cody Simms Primary Care Provider [phone] [phone] Reason for Visit * Reason Comments Consult No complaints * Referral (Routine) - Closed Specialty Diagnoses / Procedures Referred By Contac t Referred To Contact Nephrology Diagnoses Decreased GFR Cody Simms PA [address] [place] [address] Babatunde Oliva MD [address] [place] [phone] Referral ID Status Reason Start Date Expiration Date V isits Requested Visits Authorized [id number] Closed Consult 09/21/2018 1 1 Encounter Details Date Type Department Care Team (Late st Contact Info) Description 10/24/2018 8:45 AM INKJET OPERATOR Initial consult [facility] Nephrology [address] [place] [address] Babatunde Oliva MD [address] [place] [address] Azotemia (Primary Dx); Dyslipidemia Social History Tobacco Use Types Packs/Day [...] Sign Reading Time Taken Comments Blood Pressure 132/80 10/24/2018 8:42 AM INKJET OPERATOR Pulse 81 10/24/2018 8:42 AM INKJET OPERATOR Temperature - - Respiratory Rate - - Oxygen Saturation 96% 10/24/2018 8:42 AM INKJET OPERATOR Inhaled Oxygen Concentration - - Weight 84.6 kg (186 lb 9.6 oz) 10/24/2018 8:42 A M INKJET OPERATOR Height 177.8 cm (5' 10 ) 10/24/2018 8:42 AM INKJET OPERATOR Body Mass Index 26.77 10/24/2018 8:42 AM INKJET OPERATOR documented in this encounter Patient Instructions * Patient Instructions* Babatunde Oliva MD - 10/24/2018 8:45 AM INKJET OPERATOR Hyperlipidemia COMMUNICATION PROFESSOR: Hyperlipidemia is a high level of lipids (fats) in your blood. These lipids include cholesterol or triglycerides. Lipids are made by your body. They also come from the foods you eat. Your body needs lipids to work properly, but high levels increase your risk for heart disease, heart attack, and stroke. Call 911 for any of the following: ?? You have any of the following signs of a heart attack: ?? Squeezing, pressure, or pain in your chest ?? and any of the following: ?? Discomfort or pain in your back, neck, jaw, stomach, or arm ?? Shortness of breath ?? Nausea or vomiting ?? Lightheadedness or a sudden cold sweat ?? You have any of the following signs of a stroke: ?? Numbness or drooping on one side of your face ?? Weakness in an arm or leg ?? Confusion or difficulty speaking ?? Dizziness, a severe headache, or vision loss Contact your healthcare provider if: ?? You have questions or concerns about your condition or care. Treatment of hyperlipidemia may first include lifestyle changes to help decrease your lipid levels.You may also need to take medicine to lower your lipid levels. Some of the lifestyle changes you may need to make include the following: ?? Maintain a healthy weight. Ask your healthcare provider how much you should weigh. Ask him or her to help you create a weight loss plan if you are overweight. Weight loss can decrease your cholesterol and triglyceride levels. ?? Exercise as directed. Exercise lowers your cholesterol levels and helps you maintain a healthy weight. Get 30 minutes or more of aerobic exercise 4 to 6 days each week. You can split your exerciseinto four 10-minute workouts instead of 30 minutes at one time. Examples of aerobic exercises include walking briskly, swimming, or riding a bike. Work with your healthcare provider to plan the best exercise program for you. ?? Do not smoke. Nicotine and other chemicals in cigarettes and cigars can increase your risk for aheart attack and stroke. Ask your healthcare provider for information if you currently smoke and need help to quit. E-cigarettes or smokeless tobacco still contain nicotine. Talk to your healthcare provider before you use these products. ?? Eat heart-healthy foods. Talk to your dietitian about a heart-healthy diet. The following will help you manage hyperlipidemia: ?? Decrease the total amount of fat you eat. Choose lean meats, fat-free or 1% fat milk, and low-fat dairy products, such as yogurt and cheese. Limit or do not eat red meat. Red meats are high in fatand cholesterol. ?? Replace unhealthy fats with healthy fats. Unhealthy fats include saturated fat, trans fat, and cholesterol. Choose soft margarines that are low in saturated fat and have little or no trans fat. Monounsaturated fats are healthy fats. These are found in olive oil, canola oil, avocado, and nuts. Radames yunsaturated fats are also healthy. These are found in fish, flaxseed, walnuts, and soybeans. ?? Eat 5 or more servings of fruits and vegetables every day. They are low in calories and fat and a good source of essential vitamins. Include dark green, red, and orange vegetables. Examples include spinach, kale, broccoli, and carrots. ?? Eat foods high in fiber. Fiber can help lower your cholesterol levels. Choose whole grain, high-fiber foods. Good choices include whole-wheat breads or cereals, beans, peas, fruits, and vegetables. ?? Ask your healthcare provider if it is safe for you to drink alcohol. Alcohol can increase your cholesterol and triglyceride levels. A drink of alcohol is 12 ounces of beer, 5 ounces of wine, or 1?? ounces of liquor. Follow up with your healthcare provider as directed: You may need to return for more tests. Your healthcare provider may refer you to a dietitian. Write down your questions so you remember to ask them during your visits. ?? 2018 [employer] Information is for End User's use only and may not be sold, redistributed or otherwise used for commercial purposes. All illustrations and images included in CareNotes?? are the copyrighted property of [employer]. or [employer]. The above information is an parent aide only. It is not intended as medical advice for individual conditions or treatments. Talk to your doctor, nurse or pharmacist before following any medical regimen to see if it is safe and effective for you. ET OPERATOR documented in this encounter Progress Notes * Babatunde Oliva MD - 10/24/2018 8:45 AM CST Images from the original note were not included. OUT-PATIENT CONSULT [facility] NEPHROLOGY DEMOGRAPHICS: Name: John Veliz Age: 48 y.o. : 1970 Sex: male Service date: 8:51 AM 10/24/2018 PCP: Cody Simms Referring Provider:Cody Simms CHIEF COMPLAINT: For decreased renal function HISTORY OF PRESENT ILLNESS: I had the pleasure of evaluating Ms. John Veliz who is a very pleasant 48 y.o., male for decreased renal function. He was recently evaluated by Cody Lazo,and was referred for the above As you know, Ms. Veliz has a significant history of anxiety and depressive illness but no majormedical illness like DM/HTN. She denies prior history of kidney disease, nephrolithiasis, renal surgeries. Reports no such history in the family and others as below. Today, she denies urinary frequency, nocturia, straining, incomplete voiding, bloody urine, foamy urine and burning micturition.Reports no hx of recurrent UTI's. No new joint pains, skin rash or oralulcers. Reports no fever, chills or rigors. No sinusitis or sore throat. No history of connective disorders. Denies chest pain, SOB, palpitations and other cardiopulmonary symptoms. No recent bouts of diarrhea,vomiting or nausea.No dry eyes or mouth.No weight loss. No lower extremity swellings. No recent hospitalizations or ER visits. No recent travel or exposure to sick contacts. Not exposed to heavy metals or spurious alcohols. He is an Ex smoker.No IV drugs or alcohol. Reports no use of NSAIDS or herbal medications. No recent changes in the medications. I have reviewed his labs and other relevent past medical history and discussed with him today. PAST MEDICAL HISTORY: Past Medical History: Diagnosis Date ??? Anxiety ??? Depression (disease) PAST SURGICAL HISTORY: Past Surgical History: Procedure Laterality Date ??? SHOULDER SURGERY 2002 left FAMILY HISTORY: Family History Problem Relation Age of Onset ??? Depression Mother ??? Depression Father ??? Alcohol Abuse Paternal Uncle SOCIAL HISTORY: Social History Socioeconomic History ??? Marital status: Spouse name: Not on file ??? Number of children: Not on file ??? Years of education: Not on file ??? Highest education level: Not on file Social Needs ??? Financial resource strain: Not on file ??? Food insecurity - worry: Not on file ??? Food insecurity - inability: Not on file ??? Transportation needs - medical: Not on file ??? Transportation needs - non-medical: Not on file Occupational History ??? Not on file Tobacco Use ??? Smoking status: Former Smoker Packs/day: 1.00 Types: Cigarettes Last attempt to quit: 01/22/2015 Years since quittin.7 ??? Smokeless tobacco: Former User Substance and Sexual Activity ??? Alcohol use: Yes Comment: occasional ??? Drug use: No ??? Sexual activity: Not on file Other Topics Concern ??? Not on file Social History Narrative ??? Not on file ROS: As above otherwise, a comprehensive 10 point review of systems is negative. ALLERGIES: Allergies Allergen Reactions ??? Codeine Itching Pt states he feels hot, itchy, and he vomits. PROBLEM LIST: Patient Active Problem List Diagnosis Code ??? IGGY (generalized anxiety disorder) F41.1 ??? Hyperglycemia R73.9 ??? Family history of diabetes mellitus Z83.3 ??? Dyslipidemia E78.5 ??? Hypovitaminosis D E55.9 MEDICATIONS: Current Outpatient Medications on File Prior to Visit Medication Sig Dispense Refill ??? ALPRAZolam (XANAX) 0.5 MG tablet Take 0.5 mg by mouth nightly as needed for Anxiety ??? Cholecalciferol (VITAMIN D PO) Take 5,000 Units by mouth daily ??? clomiPHENE (CLOMID) 50 MG tablet TK 1 T PO 3 TIMES WEEKLY 36 Tab 0 ??? NEEDLE, DISP, 18 G 18G X 1 MISC Use 18 g needle to draw up testosterone then switch back to 25 g needle to give the injection 10 Each 0 ??? omeprazole (PRILOSEC) 40 MG capsule Take 40 mg by mouth as needed ??? SYRINGE-NEEDLE, DISP, 3 ML 25G X 13 ML MISC Use to inject testosterone every 10 days 10 Each 11 ??? testosterone cypionate (DEPO-TESTOSTERONE) 200 MG/ML injection INJECT 1 ML INTO THE MUSCLE EVERY 10 DAYS 10 mL 0 No current facility-administered medications on file prior to visit. PHYSICAL EXAM: Vitals: Vitals: 10/24/18 0842 BP: 132/80 BP Site: Left Arm Pulse: 81 SpO2: 96% Weight: 186 lb 9.6 oz (84.6 kg) Height: 5' 10 Body mass index is 26.77 kg/m??. Constitutional: Comfortable.Not in acute distress and talking in full sentences. HEENT: PERRL/EOMI. Atraumatic and normocephalic. Respiratory: Good air entry anteriorly and posteriorly. No wheeze or rales. Cardiovascular: Regular rate and rhythm. S1 + S2. No murmurs, rubs or gallops. Abdomen: Soft, non tender, No masses or organomegaly.No CVAT or abdominal bruits. Extremities: No cyanosis or clubbing. No edema. Musculoskeletal: No joint swelling or tenderness. Skin: No rash or lesions. HELICOPTER PILOT INSTRUCTOR: Grossly intact. Moving all the 4 extremities. Not a complete examination. LABS: ABS: IRON: No results for input(s): IRON in the last 01192 hours. TIBC: No results for input(s): TIBC in the last 31359 hours. FERRITN: No results for input(s): FERRITIN in the last 35145 hours. No results found for: [id number] Lab Results Component Value Date CALCIUM 8.9 09/07/2018 Vitamin D 25 Hydroxy: Recent Labs Lab 12/11/17 1220 [id number] 32.4 Urinalysis: Recent Labs Lab 01/05/14 1646 GLUCOSEU NEGATIVE White Blood Cell Count Date Value Ref Range Status 09/07/2018 5.14 4.00 TO 11.00 K/uL Final 12/11/2017 6.79 4.00 TO 11.00 K/uL Final 01/05/2014 8.9 4.1 - 10.9 THOUS Final 10/13/2013 9.7 4.1 - 10.9 THOUSAND Final Hemoglobin Date Value Ref Range Status 09/07/2018 16.3 13.7 TO 17.5 g/dL Final 12/11/2017 15.0 13.7 TO 17.5 g/dL Final 01/05/2014 15.3 12.9 - 16.6 GM/DL Final 10/13/2013 16.5 12.9 - 16.6 g/dL Final Platelet Count Date Value Ref Range Status 09/07/2018 231 130 TO 450 K/uL Final 12/11/2017 280 130 TO 450 K/uL Final 01/05/2014 268 130 - 400 THOUS Final 10/13/2013 292 130 - 400 THOUS Final Sodium Date Value Ref Range Status 09/07/2018 142 136 TO 145 mmol/L Final 12/11/2017 140 136 TO 145 mmol/L Final 01/05/2014 143 136 - 145 MMOL/L Final 10/13/2013 142 136 - 145 MMOL/L Final Potassium Date Value Ref Range Status 09/07/2018 4.4 3.5 TO 5.1 mmol/L Final 12/11/2017 4.0 3.5 TO 5.1 mmol/L Final 01/05/2014 3.6 3.5 - 5.4 MMOL/L Final 10/13/2013 3.7 3.5 - 5.4 MMOL/L Final Chloride Date Value Ref Range Status 09/07/2018 103 98 TO 107 mmol/L Final 12/11/2017 100 98 TO 107 mmol/L Final 01/05/2014 107 98 - 107 MMOL/L Final 10/13/2013 108 (H) 98 - 107 MMOL/L Final Co2 Date Value Ref Range Status 09/07/2018 30 21 TO 32 mmol/L Final 12/11/2017 30 21 TO 32 mmol/L Final 01/05/2014 25 20 - 33 MMOL/L Final 10/13/2013 27 20 - 33 MMOL/L Final Blood Urea Nitrogen Date Value Ref Range Status 09/07/2018 32 (H) 7 TO 18 mg/dL Final 12/11/2017 21 (H) 7 TO 18 mg/dL Final 01/05/2014 14 8 - 23 MG/DL Final 10/13/2013 13 8 - 23 MG/DL Final Creatinine Date Value Ref Range Status 09/07/2018 1.3 0.7 TO 1.3 mg/dL Final 12/11/2017 1.2 0.7 TO 1.3 mg/dL Final 01/05/2014 1.0 0.6 - 1.2 MG/DL Final 10/13/2013 1.1 0.6 - 1.2 MG/DL Final Est GFR Date Value Ref Range Status 09/07/2018 63 60 TO 150 mL/min/1.73m2 Final 12/11/2017 70 60 TO 150 mL/min/1.73m2 Final Comment: *THE GFR IS NOT APPLICABLE FOR PEDIATRIC PATIENTS, NOR THOSE >70 YEARS OLD. GFR NORMAL RANGE >60 mL/min 01/05/2014 >60 >60 ML/MIN/1.73sq.m Final 10/13/2013 >60 ML/MIN/1.73sq.m Final AST(SGOT) Date Value Ref Range Status 09/07/2018 22 15 TO 37 U/L Final 05/24/2018 18 15 TO 37 U/L Final 12/11/2017 25 15 TO 37 U/L Final 01/05/2014 21 0 - 39 U/L Final Alt (SGPT) Date Value Ref Range Status 09/07/2018 38 16 TO 63 U/L Final 05/24/2018 32 16 TO 63 U/L Final 12/11/2017 52 16 TO 63 U/L Final 01/05/2014 24 10 - 40 U/L Final WBC Urine Date Value Ref Range Status 01/05/2014 NONE SEEN <5 /HPF Final Recent Labs Lab 09/07/18 1206 05/24/18 1158 12/11/17 1220 [id number] -- -- 32.4 CHOL 177 184 238 TRIG 78 126 383 No results for input(s): URICACID in the last 85771 hours. No results found for: BNP, CKTOTAL No results found for: ISO1 No results found in the last 180 days VISIT ORDERS: No orders of the defined types were placed in this encounter. FINAL DIAGNOSIS: Encounter Diagnoses Code Name Primary? R79.89 Azotemia Yes ??? E78.5 Dyslipidemia ASSESSMENT & PLAN: Azotemia - his NA is on higher end, so I have advised him to drink plenty of fluid francy during work out. His renal function is still normal with eGFR >60 Previous UA normal Hyperlipidemia - low cholesterol diet, not on meds, no other risk factors Health care management as per the primary provider. Thank you very much for the referral and involving us in the care of Mr. Veliz. Please feel free to contact us for any information. Return to Clinic: PRN ?? I have advised the Mr. Veliz to avoid NSAID's and Herbal meds. Compliance with medications,diet and clinic visits encouraged. ?? The patient indicates understanding of these issues and agrees with the plan ?? The patient is given an After Visit Summary sheet. ?? I reconciled the patient's medication list and prepared and supplied as needed refills. This note is electronically signed in the electronic medical record. Babatunde Oliva MD [facility] NEPHROLOG[facility] Service date: 8:51 AM 10/24/2018 ET OPERATOR documented in this encounter Plan of Treatment Not on file documented as of this encounter Visit Diagnoses Diagnosis Azotemia- Primary Other abnormal blood chemistry Dyslipidemia Other and unspecified hyperlipidemia documented in this encounter Care Teams Herbarium Worker Relationship Specialty Start Date End Date Cody Simms PA [address] [place] [id number] PCP - General Physician Lvn 10/24/18 03/10/22 documented as of this encounter
--- OUTSIDE RECORDS SUMMARY | 2024-08-23 12:09 | XMS_ITS | Encounter Summary ---
Author Organization [facility] Address [address] [place] [address] Care Team Providers Care Market Research Intern Name Role Phone Cody Simms Primary Care Provider [phone]- [phone] Reason for Visit * Reason Comments Medication Refill Encounter Details Date Type Department Care Team ([facility] st Contact Info) Description 07/11/2019 Refill [facility] [address] [place] [address] Cody Simms PA [address] [place] [address] Medication Refill Social History Tobacco Use Types [...] on filedocumented in this encounter Care Teams Market Research Intern Relationship Specialty Start Date End Date Cody Simms PA [address] [place] [id number] PCP - General Physician Entry Level Management 10/24/18 03/10/22 documented as of this encounter
--- OUTSIDE RECORDS SUMMARY | 2024-08-23 12:09 | XMS_ITS | Encounter Summary ---
Author Organization [facility] Address [address] [place] [id number] Care Team Providers Care Brewery Representative Name Role Phone Cody Simms Primary Care Provider [phone] Reason for Visit * Reason Comments Follow-up labs Encounter Details Date Type Department Care Team (Late st Contact Info) Description 09/15/2019 2:30 PM GOLF COURSE DESIGNER Office Visit [facility] [address] [place] [address] Cody Simms PA [address] [place] [address] Dyslipidemia (Primary Dx); Long-term current use of testosterone [...] Sign Reading Time Taken Comments Blood Pressure 148/80 09/15/2019 2:34 PM GOLF COURSE DESIGNER Pulse 80 09/15/2019 2:34 PM GOLF COURSE DESIGNER Temperature 36.8 ??C (98.3 ??F) 09/15/2019 2:34 PM CS T Respiratory Rate 20 09/15/2019 2:34 PM GOLF COURSE DESIGNER Oxygen Saturation 98% 09/15/2019 2:34 PM GOLF COURSE DESIGNER Inhaled Oxygen Concentration - - Weight 88.9 kg (196 lb) 09/15/2019 2:34 PM GOLF COURSE DESIGNER Height 177.8 cm (5' 10 ) 09/15/2019 2:34 PM GOLF COURSE DESIGNER Body Mass Index 28.12 09/15/2019 2:34 PM GOLF COURSE DESIGNER documented in this encounter Progress Notes * Rip Simmsson Hugh - 09/15/2019 2:30 PM CST CHIEF COMPLAINT: Chief Complaint Patient presents with ??? Follow-up labs SUBJECTIVE: He presents today for follow-up on labs to include testosterone which is satisfactory lipid profilehis slightly elevated with triglycerides of 208 LDL of 128 VLDL of 42 and a low HDL of 29. He reports that he wishes to not go on medication for this and try to change his diet. CMP shows some decrease in GFR currently at 54 increase in creatinine of 1.4 and increase and BUN of 20 which is holding steady from the last two blood draws. He has seen nephrology and they do not seem to be concerned about this. CBC and estradiol levels are satisfactory. He has no new complaints. ROS: Remainder of a 10 point [...] T PO 3 TIMES WEEKLY 5 ??? [] NEEDLE, DISP, 18 G 18G X 1 MISC Use 18 g needle to draw up testosterone then switch back to 25 g needle to give the injection 10 each 5 ??? omeprazole (PRILOSEC) 40 MG capsule Take 40 mg by mouth as needed ??? testosterone cypionate (DEPO-TESTOSTERONE) 200 MG/ML injection INJECT 1 ML INTO A LARGE MUSCLE EVERY 12 DAYS 10 mL 2 No current facility-administered medications on file prior to visit. ALLERGIES: Allergies Allergen Reactions ??? Codeine Itching Pt states he feels hot, itchy, and he vomits. PHYSICAL EXAM: VITALS: Vitals: 09/15/19 1434 BP: 148/80 Pulse: 80 Resp: 20 Temp: 98.3 ??F (36.8 ??C) TempSrc: Tympanic SpO2: 98% Weight: 88.9 kg (196 lb) Height: 5' 10 Constitutional: Body mass index is 28.12 kg/m??., No acute distress, Non-toxic appearance. HEENT: [...] edema, Neurologic: grossly intact ASSESMENT & PLAN: Dyslipidemia-we will redraw lipid panel in 3 months he is going to make diet changes I did university counselor him on this. Follow-up 3 months. Testosterone replacement -currently satisfactory we will continue as previously prescribed and redraw testosterone level in 3 months with follow-up. Decreased GFR- his renal function is holding steady for the most part will redraw CMP to double check this in 3 months we did get him to Nephrology and they do not seem concerned about the decline. Final Diagnosis: Encounter Diagnoses Code Name Primary? E78.5 Dyslipidemia Yes ??? Z79.890 Long-term current use of testosterone replacement therapy ??? R94.4 Decreased GFR Visit Orders: Orders Placed This Encounter Procedures ??? Lipid Profile (Future 3 Months) Standing Status: Future Standing Expiration Date: 03/13/2020 ??? TESTOS FREE/TOT ADULT MALE Standing Status: Future Standing Expiration Date: 09/15/2020 ??? Comprehensive Metabolic Panel (Future 3 Months) Standing Status: Future Standing Expiration Date: 03/13/2020 DISCHARGE MEDS: Outpatient Encounter Medications as of 09/15/2019 Medication Sig Dispense Refill ??? ALPRAZolam (XANAX) [...] T PO 3 TIMES WEEKLY 5 ??? [] NEEDLE, DISP, 18 G 18G X 1 MISC Use 18 g needle to draw up testosterone then switch back to 25 g needle to give the injection 10 each 5 ??? omeprazole (PRILOSEC) 40 MG capsule Take 40 mg by mouth as needed ??? testosterone cypionate (DEPO-TESTOSTERONE) 200 MG/ML injection INJECT 1 ML INTO A LARGE MUSCLE EVERY 12 DAYS 10 mL 2 No facility-administered encounter medications on file as of 09/15/2019. 1. The patient indicates understanding of these [...] allergies listed in the above medical record COURSE DESIGNER documented in this encounter Plan of Treatment Not on file documented as of this encounter Results * (ABNORMAL) COMPREHENSIVE METABOLIC PANEL (12/30/2019 8:36 AM CDT) Glucose 105(H) 65 - 100 MG/DL [facility] Blood Urea Nitrogen 22(H) 7 - 18 MG/DL [facility] Creatinine 1.5(H) 0.7 - 1.3 MG/DL [facility] Sodium 141 136 - 145 MMOL/L [facility] Potassium 4.3 3.5 - 5.1 MMOL/L [facility] Chloride 103 98 - 107 MMOL/L [facility] Co2 32 21 - 32 MMOL/L [facility] Calcium 8.6 8.5 - 10.1 MG/DL [facility] Osmolality 285 273 - 304 mOsm/L [facility] Protein Total 7.1 6.4 - 8.2 G/DL [facility] Albumin 3.6 3.4 - 5.0 G/DL [facility] A/G Ratio 1.0 0.8 - 2.0 [facility] Alkaline Phosphatase 66 46 - 116 U/L [facility] Alt (SGPT) 46 16 - 63 U/L [facility] AST(SGOT) 26 15 - 37 U/L [facility] Bilirubin, Total 0.8 0.2 - 1.0 MG/DL [facility] GFR Comment IF PATIENT IS , MULTIPLY RESULT BY 1.16 [facility] Est GFR 55(L) >90 ML/MIN/1. 73sq.m [facility] Blood 12/30/2019 8:36 AM CDT 12/30/2019 8:38 AM CDT Cody WORKMAN CHEMISTRY ORDERABLE S [facility] [address] * TESTOS FREE/TOT ADULT MALE (12/30/2019 8:36 AM CDT) Total Testosterone 487 300 - 890 ng/dL [facility] Comment: (NOTE) REFERENCE INTERVAL: Testosterone, Adult Male Access complete set of age- and/or gender-specific reference intervals for this test in the [facility] Test Directory ([facility]). Testosterone Free 102 47 - 244 pg/mL [facility] Comment: (NOTE) INTERPRETIVE INFORMATION: ??Testosterone, Free Joel Stage IV ?35 - 169 pg/mL Joel Stage V ? 41 - 239 pg/mL The concentration of Free Testosterone is derived from a mathematical expression based on the constant for the binding of testosterone to Sex Hormone Binding Globulin (SHBG). Access complete set of age- and/or gender-specific reference intervals for this test in the [facility] Test Directory ([facility]). Sex Hormone Binding Globulin 27 (NOTE) REFERENCE INTERVAL: Sex Hormone Binding Globulin Access complete set of age- and/or gender-specif ic reference ??intervals for this test in the [facility] Test Directory ?? ([facility]) . 11 - 80 nmol/L [facility] Testosterone Free Percent 2.1 1.6 - 2.9 % [facility] Comment: (NOTE) Performed by [facility], [address] [place] [address] [email or web address], Da Fleming MD, Lab. Director Blood 12/30/2019 8:36 AM CDT 12/30/2019 8:38 AM CDT Cody WORKMAN LAB SEND OUT ORDERA BLES Performing Organization Address City/[facility] de Phone Number [facility] [address] [place] [address], [facility] * (ABNORMAL) LIPID PROFILE (12/30/2019 8:36 AM CDT) Cholesterol 213(H) 0 - 200 MG/DL [facility] Triglycerides 275(H) 0 - 150 MG/DL [facility] HDL 31(L) 40 - 60 MG/DL [facility] LDL Cholesterol 127(H) 0 - 100 MG/DL [facility] LDL/HDL Ratio 4.10 [facility] VLDL, Calc 55(H) 0 - 35 MG/DL [facility] Blood 12/30/2019 8:36 AM CDT 12/30/2019 8:38 AM CDT Cody WORKMAN CHEMISTRY ORDERABLE S Performing Organization Address City/[facility]/ZIP Co de Phone Number [facility] [address] [place] [address] documented in this encounter Visit Diagnoses Diagnosis Dyslipidemia- Primary Other and unspecified hyperlipidemia Long-term current use of testosterone replacement therapy Decreased GFR Nonspecific abnormal results of kidney function study documented in this encounter Care Teams Brewery Representative Relationship Specialty Start Date End Date Cody Simms PA [address] [place] [id number] PCP - General Physician Technical Testing Engineer 10/24/18 03/10/22 documented as of this encounter
--- OUTSIDE RECORDS SUMMARY | 2024-08-23 12:09 | XMS_ITS | Encounter Summary ---
Author Organization [facility] Address [address] [place] [address] Care Team Providers Care Supervisor [employer] Name Role Phone Cody Simms Primary Care Provider [phone] Reason for Visit * Reason Comments Medication Refill Encounter Details Date Type Department Care Team (Late st Contact Info) Description 03/25/2020 Refill [facility] [address] [place] [phone] Cody Simms PA [address] [place], [place] [phone] Medication Refill Social History Tobacco Use Types [...] on filedocumented in this encounter Care Teams Supervisor [employer] Relationship Specialty Start Date End Date Cody Simms PA [address] [place] [id number] PCP - General Physician Supervisor Claims 10/24/18 03/10/22 documented as of this encounter
--- OUTSIDE RECORDS SUMMARY | 2024-08-23 12:09 | XMS_ITS | Encounter Summary ---
Author Organization [facility] Address [address] [place] [address] Care Team Providers Care Corporate Travel Coordinator Name Role Phone Cody Simms Primary Care Provider [phone] Reason for Visit * Reason Comments Follow-up testosterone states he feels more energetic Encounter Details Date Type Department Care Team (Late st Contact Info) Description 12/15/2018 2:00 PM CDT Office Visit [facility] [address] [place] [address] Cody Simms PA [address] [place] [address] Encounter for vitamin deficiency screening (Primary Dx); Encounter for monitoring testosterone replacement therapy; Screening for prostate cancer; Screening for thyroid disorder; Screening for lipid [...] Sign Reading Time Taken Comments Blood Pressure 140/70 12/15/2018 2:04 PM CDT Pulse 74 12/15/2018 2:04 PM CDT Temperature 36.5 ??C (97.7 ??F) 12/15/2018 2:04 PM CD T Respiratory Rate 18 12/15/2018 2:04 PM CDT Oxygen Saturation 98% 12/15/2018 2:04 PM CDT Inhaled Oxygen Concentration - - Weight 83.9 kg (185 lb) 12/15/2018 2:04 PM CDT Height 177.8 cm (5' 10 ) 12/15/2018 2:04 PM CDT Body Mass Index 26.54 12/15/2018 2:04 PM CDT documented in this encounter Progress Notes * Cody Simms D - 12/15/2018 2:00 PM CDT CHIEF COMPLAINT: Chief Complaint Patient presents with ??? Follow-up testosterone states he feels more energetic SUBJECTIVE: He presents today for three-month follow-up on testosterone replacement therapy we did increase histestosterone at his last encounter because it was significantly low despite treatment we decreased him to every 10 days and we do have a new testosterone level which is slightly higher than the normal limit at today's visit at 1067. ROS: Remainder of a 10 point review [...] TIMES WEEKLY 36 Tab 0 ??? [DISCONTINUED] NEEDLE, DISP, 18 G [...] every 10 days 10 Each 11 ??? [DISCONTINUED] testosterone cypionate (DEPO-TESTOSTERONE) 200 MG/ML injection INJECT 1 ML INTO THE MUSCLE EVERY 10 DAYS 10 mL 0 No current facility-administered medications on file prior to visit. ALLERGIES: Allergies Allergen Reactions ??? Codeine Itching Pt states he feels hot, itchy, and he vomits. PHYSICAL EXAM: VITALS: Vitals: 12/15/18 1404 BP: 140/70 Pulse: 74 Resp: 18 Temp: 97.7 ??F (36.5 ??C) TempSrc: Tympanic SpO2: 98% Weight: 83.9 kg (185 lb) Height: 5' 10 Constitutional: Body mass index is 26.54 kg/m??., No acute distress, Non-toxic appearance. HEENT: [...] Neurologic: grossly intact ASSESMENT & PLAN: Testosterone replacement therapy -current level is elevated at 1067 we will I decrease the frequency to every 12 days and redraw a testosterone and 3 months with follow-up. Screening for prostate cancer -I will order a PSA to be drawn in 3 months with follow-up. Vitamin-D deficiency /screening for vitamin deficiency -we will order a vitamin- D level when he returns in 3 months. Screening for lipid deficiency -we will order a lipid panel for when he returns in 3 months. Screening for thyroid disorder -we will order a TSH for when he returns in 3 months. Medication management -we will order also a CBC, and a CMP with return in 3 months to go over thoseresults. Final Diagnosis: Encounter Diagnoses Code Name Primary? Z13.21 Encounter for vitamin deficiency screening Yes ??? Z51.81, Z79.890 Encounter for monitoring testosterone replacement therapy ??? Z12.5 Screening for prostate cancer ??? Z13.29 Screening for thyroid disorder ??? Z13.220 Screening for lipid disorders ??? Z79.899 Medication management Visit Orders: Orders Placed This Encounter Procedures ??? CBC w/Auto Diff (Future 3 Months) Standing Status: Future Standing Expiration Date: 06/13/2019 ??? Comprehensive Metabolic Panel (Future 3 Months) Standing Status: Future Standing Expiration Date: 06/13/2019 ??? Lipid Profile (Future 3 Months) Standing Status: Future Standing Expiration Date: 06/13/2019 ??? TSH Third Generation (Future 3 Months) Standing Status: Future Standing Expiration Date: 06/13/2019 ??? Vitamin D 25 Hydroxy (Future 3 Months) Standing Status: Future Standing Expiration Date: 12/15/2019 ??? Testosterone, Total And Free, Serum Standing Status: Future Standing Expiration Date: 12/15/2019 ??? PSA Screen Standing Status: Future Standing Expiration Date: 12/15/2019 DISCHARGE MEDS: Outpatient Encounter Medications as of 12/15/2018 Medication Sig Dispense Refill ??? ALPRAZolam (XANAX) 0.5 MG tablet TAKE ONE TABLET BY MOUTH THREE TIMES DAILY NEEDED FOR ANXIETY 90 tablet 2 ??? Cholecalciferol (VITAMIN D PO) Take 5,000 Units by mouth daily ??? clomiPHENE (CLOMID) 50 MG tablet TK 1 T PO 3 TIMES WEEKLY 36 tablet 0 ??? [DISCONTINUED] clomiPHENE (CLOMID) 50 MG tablet TK 1 T PO 3 TIMES WEEKLY 36 Tab 0 ??? NEEDLE, DISP, 18 G 18G X 1 MISC Use 18 g needle to draw up testosterone then switch back to 25g needle to give the injection 10 each 0 ??? [DISCONTINUED] NEEDLE, DISP, 18 G [...] EVERY 10 DAYS 10 mL 0 No facility-administered encounter medications on file as of 12/15/2018. 1. The patient indicates understanding of these [...] as of this encounter Results * PSA SCREEN (02/27/2019 9:45 AM CDT) Prostate Specific Antigen Total 0.9 0.1 TO 4.0 ng/mL [facility] Blood 02/27/2019 9:45 AM CDT Cody WORKMAN CHEMISTRY ORDERABLE S Performing Organization Address [facility] Phone Number [address] * VITAMIN D 25 HYDROXY (02/27/2019 9:45 AM CDT) Vit D 25 Hydroxy 53.6 30.0 TO 100.0 ng/mL [facility] 02/27/2019 9:45 AM CDT Coyd WORKMAN CHEMISTRY ORDERABLE S Performing Organization Address [facility] Phone Number [address] * TSH THIRD GENERATION (02/27/2019 9:45 AM CDT) TSH High Sensitivity 1.48 0.30 TO 3.04 uIU/mL [facility] Blood 02/27/2019 9:45 AM CDT Cody WORKMAN CHEMISTRY ORDERABLE S Performing Organization Address [facility] Phone Number [address] * (ABNORMAL) LIPID PROFILE (02/27/2019 9:45 AM CDT) Triglycerides 163(H) 0 TO 150 mg/dL [facility] Cholesterol 218(H) 0 TO 200 mg/dL [facility] HDL 31(L) 35 TO 60 mg/dL [facility] LDL Cholesterol 154(H) 0 TO 100 mg/dL [facility] VLDL, Calc 32.6 0.0 TO 35.0 mg/dL [facility] LDL/HDL Ratio 7.0(H) 3.0 TO 6.0 [facility] Blood 02/27/2019 9:45 AM CDT Cody WORKMAN CHEMISTRY ORDERABLE S Performing Organization Address City/State/[facility] Co de Phone Number [facility] [address] [place] [address] * (ABNORMAL) COMPREHENSIVE METABOLIC PANEL (02/27/2019 9:45 AM CDT) Glucose 101(H) 65 TO 100 mg/dL [facility] Blood Urea Nitrogen 24(H) 7 TO 18 mg/dL [facility] Creatinine 1.4(H) 0.7 TO 1.3 mg/dL [facility] Sodium 137 136 TO 145 mmol/L [facility] Potassium 3.9 3.5 TO 5.1 mmol/L [facility] Chloride 98 98 TO 107 mmol/L [facility] Co2 35(H) 21 TO 32 mmol/L [facility] Calcium 8.9 8.5 TO 10.1 mg/dL [facility] Osmolality 278 273 TO 304 mOsm/L [facility] Protein Total 7.4 6.4 TO 8.2 mg/dL [facility] Albumin 3.8 3.4 TO 5.0 g/dL [facility] Globulin 3.6 2.4 TO 4.2 g/dL [facility] A/G Ratio 1.1 0.8 TO 2.0 [facility] Alkaline Phosphatase 61 46 TO 116 U/L [facility] Alt (SGPT) 39 16 TO 63 U/L [facility] AST(SGOT) 26 15 TO 37 U/L [facility] Bilirubin, Total 1.3(H) 0.2 TO 1.0 mg/dL [facility] Est GFR 58(L) 60 TO 150 mL/min/1.7 3m*2 [facility] Blood 02/27/2019 9:45 AM CDT Cody WORKMAN CHEMISTRY ORDERABLE S [facility] [address] * CBC W AUTO DIFF (02/27/2019 9:45 AM CDT) White Blood Cell Count 5.10 4.00 TO 11.00 K/uL [facility] Neutrophils 56.4 34.0 TO 67.9 % [facility] Lymphs 29.4 21.8 TO 53.1 % [facility] Monocytes 11.40 5.3 TO 12.2 % [facility] Eos 2.20 0.8 TO 7.0 % [facility] Basos 0.60 0.2 TO 1.2 % [facility] Neutrophils Absolute Count 2.88 1.78 TO 5.38 K/uL [facility] Lymphocytes Absolute Count 1.50 1.32 TO 3.57 KuL [facility] Monocytes Absolute Count 0.58 0.30 TO 0.82 /uL [facility] Eosinophils Absolute Count 0.11 0.04 TO 0.54 [facility] Basophils Absolute Count 0.03 0.01 TO 0.08 [facility] Red Blood Cell Count 5.45 4.63 TO 6.08 M/uL [facility] Hemoglobin 16.9 13.7 TO 17.5 g/dL [facility] Hematocrit 49.1 40.1 TO 51.0 % [facility] Mean Corpuscular Volume 90.1 79.0 TO 92.2 [facility] Mean Corpuscular Hemoglobin 31.0 25.7 TO 32.2 pg [facility] Mean Corpuscular Hemoglobin Conc 34.4 32.3 TO 36.5 g/dL [facility] Red Cell Distribution Width 13.1 11.6 TO 14.4 % [facility] Platelet Count 227 130 TO 450 K/uL [facility] Mean Platelet Volume 10.30 8.1 TO 12.4 [facility] Platelet Estimate [facility] RBC Morphology [facility]AL [facility] Peripheral Smear YES [facility] Blood 02/27/2019 9:45 AM CDT Cody WORKMAN HEMATOLOGY ORDERABL ES Performing Organization Address [facility]/ZIP Co de Phone Number [address] * TESTOSTERONE, TOTAL AND FREE, SERUM (02/27/2019) Cody WORKMAN LAB SEND OUT ORDERA BLES Performing Organization Address [facility] Co de Phone Number [address] documented in this encounter Visit Diagnoses Diagnosis Encounter for vitamin deficiency screening- Primary Screening for other and unspecified endocrine, nutritional, metabolic, and immunity disorders Encounter for monitoring testosterone replacement therapy Encounter for therapeutic drug monitoring Screening for prostate cancer Special screening for malignant neoplasm of prostate Screening for thyroid disorder Screening for lipid disorders Medication management Encounter for long-term (current) use of other medications documented in this encounter Care Teams Corporate Travel Coordinator Relationship Specialty Start Date End Date Cody Simms PA [address] [place] [address] PCP - General Physician Technical Support Assistant 10/24/18 03/10/22 documented as of this encounter
--- OUTSIDE RECORDS SUMMARY | 2024-08-23 12:09 | XMS_ITS | Encounter Summary ---
Author Organization [facility] Address [address] [place] [address] Care Team Providers Care Photography Coordinator Name Role Phone Cody Simms Primary Care Provider [phone] Reason for Visit * Reason Comments Annual Exam Results labs Encounter Details Date Type Department Care Team (Late st Contact Info) Description 06/16/2019 2:30 PM CDT Office Visit [facility] [address] [place] [address] Cody Simms PA [address] [place] [address] Compliance with medication regimen (Primary Dx); Hypotestosteronemia; Dyslipidemia; Anxiety Social History Tobacco Use Types Packs/Day Years [...] Sign Reading Time Taken Comments Blood Pressure 138/76 06/16/2019 2:56 PM CDT Pulse 75 06/16/2019 2:56 PM CDT Temperature 36.7 ??C (98 ??F) 06/16/2019 2:56 PM CDT Respiratory Rate 18 06/16/2019 2:56 PM CDT Oxygen Saturation 97% 06/16/2019 2:56 PM CDT Inhaled Oxygen Concentration - - Weight 87.1 kg (192 lb) 06/16/2019 2:56 PM CDT Height 177.8 cm (5' 10 ) 06/16/2019 2:56 PM CDT Body Mass Index 27.55 06/16/2019 2:56 PM CDT documented in this encounter Progress Notes * Cody Simms Hugh - 06/16/2019 2:30 PM CDT CHIEF COMPLAINT: Chief Complaint Patient presents with ??? Annual Exam ??? Results labs SUBJECTIVE: He presents today for Three-month follow-up and review of lab results to include a CMP. Previously had a decreased GFR now it has normalized he does have a slightly elevated BUN of 24 which is unchanged over previous evaluation. Otherwise satisfactory lipid profile shows some grove dyslipidemia with t riglycerides of 180 HDL of 32 LDL 116. He is on testosterone replacement and his current total testosterone is 375 and free testosterone is 69 this was drawn on the day that he was supposed to have his injection prior to him having the injection. We did move that to every 12 days and it appears that he is doing well with that. He has no complaints in states that he is doing rather well. He was put on a Clomid due to high estrogen levels with the testosterone replacement by an aging Clinic in [place]. He continues to take that. He does have some slight gynecomastia. He states that the Xanax is working well for his anxiety. ROS: Remainder of a 10 point review [...] MG tablet Take 0.5 mg by mouth 3 times daily as needed 2 ??? B-D 3CC LUER-JJ SYR 25GX1 25G X 1 3 ML MISC USE TO INJECT TESTOSTERONE QD FOR 10 DAYS 9 ??? Cholecalciferol (VITAMIN D PO) Take 5,000 Units by mouth daily ??? [DISCONTINUED] NEEDLE, DISP, 18 G 18G X 1 MISC Use 18 g needle to draw up testosterone then switch back to 25 g needle to give the injection 10 each 5 ??? omeprazole (PRILOSEC) 40 MG capsule Take 40 mg by mouth as needed ??? testosterone cypionate (DEPO-TESTOSTERONE) 200 MG/ML injection Inject 1 mL (200 mg) into the muscle once for 1 dose every 14 days 1 mL 6 No current facility-administered medications on file prior to visit. ALLERGIES: Allergies Allergen Reactions ??? Codeine Itching Pt states he feels hot, itchy, and he vomits. PHYSICAL EXAM: VITALS: Vitals: 06/16/19 1456 BP: 138/76 Pulse: 75 Resp: 18 Temp: 98 ??F (36.7 ??C) TempSrc: Tympanic SpO2: 97% Weight: 87.1 kg (192 lb) Height: 5' 10 Constitutional: Body mass index is 27.55 kg/m??., No acute distress, Non-toxic appearance. HEENT: [...] edema, Neurologic: grossly intact ASSESMENT & PLAN: Anxiety/compliance with medication regimen- we did obtain some urine to test is compliance with theXanax we will refill this when his refills come due should the urine drug screen and be compliant. Dyslipidemia-we will obtain a new lipid profile in 3 months I recommended more vegetables and less saturated fats. Hypotestosteronemia-we will continue with the testosterone replacement as previously prescribed current levels are satisfactory we will also add in an estradiol level due to fact that he is on Clomidand he is getting some slight gynecomastia. We did test his PSA approximately 4 months ago and was s atisfactory. Final Diagnosis: Encounter Diagnoses Code Name Primary? Z91.89 Compliance with medication regimen Yes ??? E34.9 Hypotestosteronemia ??? E78.5 Dyslipidemia Visit Orders: Orders Placed This Encounter Procedures ??? [facility] Drug Screen ??? CBC w/Auto Diff (Future 3 Months) Standing Status: Future Standing Expiration Date: 12/13/2019 ??? Comprehensive Metabolic Panel (Future 3 Months) Standing Status: Future Standing Expiration Date: 12/13/2019 ??? Lipid Profile (Future 3 Months) Standing Status: Future Standing Expiration Date: 12/13/2019 ??? Testosterone, Total And Free, Serum Standing Status: Future Standing Expiration Date: 06/15/2020 ? ? Estradiol (Males & Children) Standing Status: Future Standing Expiration Date: 06/16/2020 DISCHARGE MEDS: Outpatient Encounter Medications as of 06/16/2019 Medication Sig Dispense Refill ??? ALPRAZolam (XANAX) 0.5 MG tablet Take 0.5 mg by mouth 3 times daily as needed 2 ??? B-D 3CC LUER-JJ SYR 25GX1 25G X 1 3 ML MISC USE TO INJECT TESTOSTERONE QD FOR 10 DAYS 9 ??? Cholecalciferol (VITAMIN D PO) Take 5,000 Units by mouth daily ??? NEEDLE, DISP, 18 G 18G X 1 MISC Use 18 g needle to draw up testosterone then switch back to 25g needle to give the injection 10 each 5 ??? omeprazole (PRILOSEC) 40 MG capsule Take 40 mg by mouth as needed ??? testosterone cypionate (DEPO-TESTOSTERONE) 200 MG/ML injection Inject 1 mL (200 mg) into the muscle once for 1 dose every 14 days 1 mL 6 No facility-administered encounter medications on file as of 06/16/2019. 1. The patient indicates understanding of these [...] Procedure Name Priority Date/Time Associated Diagnosis Comments ETHOS DRUG SCREEN Routine 06/27/2019 Compliance with medication regimen documented in this encounter Results * (ABNORMAL) LIPID PROFILE (09/09/2019 8:41 AM BIOMETRICS TECHNICIAN) Cholesterol 199 0 - 200 MG/DL [facility] Triglycerides 208(H) 0 - 150 MG/DL [facility] HDL 29(L) 40 - 60 MG/DL [facility] LDL Cholesterol 128(H) 0 - 100 MG/DL [facility] LDL/HDL Ratio 4.41 [facility] VLDL, Calc 42(H) 0 - 35 MG/DL [facility] Blood 09/09/2019 8:41 AM BIOMETRICS TECHNICIAN 09/09/2019 8:43 AM BIOMETRICS TECHNICIAN Cody WORKMAN CHEMISTRY ORDERABLE S Performing Organization Address City/State/[facility] Co de Phone Number [facility] [address] * (ABNORMAL) COMPREHENSIVE METABOLIC PANEL (09/09/2019 8:41 AM BIOMETRICS TECHNICIAN) Glucose 105(H) 65 - 100 MG/DL [facility] Blood Urea Nitrogen 20(H) 7 - 18 MG/DL [facility] Creatinine 1.4(H) 0.7 - 1.3 MG/DL [facility] Sodium 135(L) 136 - 145 MMOL/L [facility] Potassium 3.9 3.5 - 5.1 MMOL/L [facility] Chloride 100 98 - 107 MMOL/L [facility] Co2 31 21 - 32 MMOL/L [facility] Calcium 8.5 8.5 - 10.1 MG/DL [facility] Osmolality 273 273 - 304 mOsm/L [facility] Protein Total 6.8 6.4 - 8.2 G/DL [facility] Albumin 3.5 3.4 - 5.0 G/DL [facility] A/G Ratio 1.1 0.8 - 2.0 [facility] Alkaline Phosphatase 60 46 - 116 U/L [facility] Alt (SGPT) 44 16 - 63 U/L [facility] AST(SGOT) 20 15 - 37 U/L [facility] Bilirubin, Total 0.6 0.2 - 1.0 MG/DL [facility] Est GFR 54(L) >60 ML/MIN/1. 73sq.m [facility] GFR Comment IF PATIENT IS , MULTIPLY RESULT BY 1.21 [facility] Blood 09/09/2019 8:41 AM BIOMETRICS TECHNICIAN 09/09/2019 8:43 AM BIOMETRICS TECHNICIAN Cody WORKMAN CHEMISTRY ORDERABLE S Performing Organization Address City/State/[facility] Co de Phone Number [facility] [address] [place] [address] * (ABNORMAL) CBC W AUTO DIFF (09/09/2019 8:41 AM BIOMETRICS TECHNICIAN) White Blood Cell Count 6.4 4.8 - 9.6 THOUS/uL [facility] Red Blood Cell Count 5.25 4.33 - 5.59 MIL/uL [facility] Hemoglobin 15.4 13.1 - 16.8 GM/DL [facility] Hematocrit 47.2 38.8 - 49.0 % [facility] Mean Corpuscular Volume 89.9 82.7 - 94.[address] [facility] Mean Corpuscular Hemoglobin 29.3 27.7 - 32.6 PG [facility] Mean Corpuscular Hemoglobin Conc 32.6 32.4 - 35.7 G/DL [facility] Rdwcv 12.8 11.6 - 13.9 % [facility] Rdwsd 42.3 36.0 - 46.[address] [facility] Platelet Count 253 154 - 364 THOUS/uL [facility] Mean Platelet Volume 10.1 8.7 - 11.[address] [facility] Nucleated Red Blood Cells 0.0 0.0 /100 WBC'S [facility] Abs NRBC 0.0 0.0 THOUS/uL [facility] Differential Type AUTO FE [facility] Neutrophils 61.5 34.0 - 67.9 % [facility] Lymphs 23.5 19.1 - 41.2 % [facility] Monocytes 11.2 6.1 - 12.3 % [facility] Eos 1.9 0.9 - 7.6 % [facility] Basos 0.8 0.2 - 1.5 % [facility] Neutrophils Absolute Count 4.0 2.7 - 5.8 THOUS/uL [facility] Lymphocytes Absolute Count 1.5 1.1 - 3.3 THOUS/uL [facility] Monocytes Absolute Count 0.7 0.4 - 0.9 THOUS/uL [facility] Eosinophils Absolute Count 0.1 0.1 - 0.6 THOUS/uL [facility] Basophils Absolute Count 0.1 0.0 - 0.1 THOUS/uL [facility] Imm Gran 1.1(H) 0.2 - 0.9 % [facility] Abs Imm Gran 0.07 0.0 - 0.1 THOUS/uL [facility] Blood 09/09/2019 8:41 AM BIOMETRICS TECHNICIAN 09/09/2019 8:43 AM BIOMETRICS TECHNICIAN Cody WORKMAN HEMATOLOGY ORDERABL ES Performing Organization Address [facility] Co de Phone Number [facility] [address] [place] [address] * [facility]OS DRUG SCREEN (06/27/2019) Cody WORKMAN LAB SEND OUT ORDERA BLES Performing Organization Address City/[facility] Co de Phone Number [facility] [address] [place] [address] documented in this encounter Visit Diagnoses Diagnosis Compliance with medication regimen- Primary Hypotestosteronemia Dyslipidemia Other and unspecified hyperlipidemia Anxiety Anxiety state, unspecified documented in this encounter Care Teams Photography Coordinator Relationship Specialty Start Date End Date Cody Simms PA [address] [place] [id number] PCP - General Physician Recycling Technician 10/24/18 03/10/22 documented as of this encounter
--- OUTSIDE RECORDS SUMMARY | 2024-08-23 12:09 | XMS_ITS | Encounter Summary ---
Author Organization [facility] Address [address] [place] [address] Care Team Providers Care Hardboard Factory Worker Name Role Phone Cody Simms Primary Care Provider [phone] Encounter Details Date Type Department Care Team (Late st Contact Info) Description 12/02/2018 Orders Only [facility] [address] [place] [address] Cody Simms PA [address] [place], [place] [id number] Hypotestosteronemia Social History Tobacco Use Types Packs/Day [...] Name Priority Date/Time Associated Diagnosis Comments TESTOSTERONE, FREE, DIRECT Routine 12/02/2018 Hypotestosteronemia documented in this encounter Results * TESTOSTERONE TOTAL FREE (12/02/2018) Blood Cody WORKMAN CHEMISTRY ORDERABLE S [address] documented in this encounter Visit Diagnoses Diagnosis Hypotestosteronemia documented in this encounter Care Teams Hardboard Factory Worker Relationship Specialty Start Date End Date Cody Simms PA [address] [place] [id number] PCP - General Physician Renewals Manager 10/24/18 03/10/22 documented as of this encounter
--- OUTSIDE RECORDS SUMMARY | 2024-08-23 12:09 | XMS_ITS | Encounter Summary ---
Author Organization [facility] Address [address] [place] [address] Care Team Providers Care Cap And Hat Production Supervisor Name Role Phone Cody Simms Primary Care Provider [phone] Encounter Details Date Type Department Care Team (Late st Contact Info) Description 12/30/2019 8:20 AM CDT Lab/X-Ray Only [facility] [address] [place] [address] Galen Jones, DO [address] [place] [phone] Dyslipidemia; Long-term current use of testosterone replacement therapy; [...] have Coronavirus / COVID-19? No / Unsure 12/30/2019 8:24 AM CDT documented as of this encounter Plan of Treatment Not on file documented as of this encounter Procedures Procedure Name Priority Date/Time Associated Diagnosis Comments TESTOS FREE/TOT ADULT MALE Routine 12/30/2019 8:36 AM CDT Long-term current use of testosterone replacement therapy LIPID PROFILE Routine 12/30/2019 8:36 AM CDT Dyslipidemia COMPREHENSIVE METABOLIC PANEL Routine 12/30/2019 8:36 AM CDT Decreased GFR documented in this encounter Results * (ABNORMAL) COMPREHENSIVE METABOLIC PANEL (12/30/2019 8:36 AM CDT) Glucose 105(H) 65 - 100 MG/DL [facility] Blood Urea Nitrogen 22(H) 7 - 18 MG/DL [facility] Creatinine 1.5(H) 0.7 - 1.3 MG/DL [facility] Sodium 141 136 - 145 MMOL/L [facility] Potassium 4.3 3.5 - 5.1 MMOL/L [facility] Chloride 103 98 - 107 MMOL/L [facility] Co2 32 21 - 32 MMOL/L [facility] Calcium 8.6 8.5 - 10.1 MG/DL [facility] Osmolality 285 273 - 304 mOsm/L [facility] Protein Total 7.1 6.4 - 8.2 G/DL [facility] Albumin 3.6 3.4 - 5.0 G/DL [facility] A/G Ratio 1.0 0.8 - 2.0 [facility] Alkaline Phosphatase 66 46 - 116 U/L [facility] Alt (SGPT) 46 16 - 63 U/L [facility] AST(SGOT) 26 15 - 37 U/L [facility] Bilirubin, Total 0.8 0.2 - 1.0 MG/DL [facility] GFR Comment IF PATIENT IS , MULTIPLY RESULT BY 1.16 [facility] Est GFR 55(L) >90 ML/MIN/1. 73sq.m [facility] Blood 12/30/2019 8:36 AM CDT 12/30/2019 8:38 AM CDT Cody WORKMAN CHEMISTRY ORDERABLE S [facility] [address] * TESTOS FREE/TOT ADULT MALE (12/30/2019 8:36 AM CDT) Total Testosterone 487 300 - 890 ng/dL [facility] Comment: (NOTE) REFERENCE INTERVAL: Testosterone, Adult Male Access complete set of age- and/or gender-specific reference intervals for this test in the [employer] [facility] ([employer]). Testosterone Free 102 47 - 244 pg/mL [facility] Comment: (NOTE) INTERPRETIVE INFORMATION: ??Testosterone, Free Joel Stage IV ?35 - 169 pg/mL Joel Stage V ? 41 - 239 pg/mL The concentration of Free Testosterone is derived from a mathematical expression based on the constant for the binding of testosterone to Sex Hormone Binding Globulin (SHBG). Access complete set of age- and/or gender-specific reference intervals for this test in the [employer] [facility] ([employer]). Sex Hormone Binding Globulin 27 (NOTE) REFERENCE INTERVAL: Sex Hormone Binding Globulin Access complete set of age- and/or gender-specif ic reference ??intervals for this test in the [employer] [facility] ?? ([employer]) . 11 - 80 nmol/L [facility] Testosterone Free Percent 2.1 1.6 - 2.9 % [employer] Comment: (NOTE) Performed by [employer], [address] [place], [place] [id number] [email or web address], Da Fleming MD, Lab. Director Blood 12/30/2019 8:36 AM CDT 12/30/2019 8:38 AM CDT Cody WORKMAN LAB SEND OUT MALACHIA BLETyron [facility] [address] * (ABNORMAL) LIPID PROFILE (12/30/2019 8:36 AM CDT) Cholesterol 213(H) 0 - 200 MG/DL [facility] Triglycerides 275(H) 0 - 150 MG/DL [facility] HDL 31(L) 40 - 60 MG/DL [facility] LDL Cholesterol 127(H) 0 - 100 MG/DL [facility] LDL/HDL Ratio 4.10 [facility] VLDL, Calc 55(H) 0 - 35 MG/DL [facility] Blood 12/30/2019 8:36 AM CDT 12/30/2019 8:38 AM CDT Cody WORKMAN CHEMISTRY ORDERABLE S [facility] [address] documented in this encounter Visit Diagnoses Diagnosis Dyslipidemia Other and unspecified hyperlipidemia Long-term current use of testosterone replacement therapy Decreased GFR Nonspecific abnormal results of kidney function study documented in this encounter Care Teams Cap And Hat Production Supervisor Relationship Specialty Start Date End Date Cody Simms PA [address] [place] [address] PCP - General Physician Forestry Worker 10/24/18 03/10/22 documented as of this encounter
--- OUTSIDE RECORDS SUMMARY | 2024-08-23 12:09 | XMS_ITS | Encounter Summary ---
Author Organization [facility] Address [address] [place] [address] Care Team Providers Care Mixer Foam Rubber Name Role Phone Cody Simms Primary Care Provider [phone] Encounter Details Date Type Department Care Team (Latest Contact Info) Description 04/25/2020 3:15 PM CDT - 04/25/2020 11:59 PM CDT Hospital Encounter [facility] [address] [place] [address] Galen Jones, DO [address] [address] [place] [address] Acute pain of left knee Discharge Disposition: Home Social History Tobacco Use [...] PM CDT documented as of this encounter Medications at Time of Discharge Medication Sig Dispensed Refills Start Date End Date Cholecalciferol (VITAMIN D PO) Take 5,000 Units by mouth daily omeprazole (PRILOSEC) 40 MG capsule Take 1 capsule (40 mg) by mouth as needed ALPRAZolam (XANAX) 0.5 MG tablet TAKE ONE TABLET BY MOUTH THREE TIMES DAILY NEEDED FOR ANXIETY 90 tablet 2 03/26/2020 06/25/2020 ALPRAZolam (XANAX) 0.5 MG tablet TAKE ONE TABLET BY MOUTH THREE TIMES DAILY NEEDED FOR ANXIETY 90 tablet 2 10/06/2019 05/02/2020 B-D 3CC LUER-JJ SYR 25GX1 25G X 1 3 ML MISCIndications:Testo sterone deficiency USE TO INJECT TESTOSTERONE EVERY DAY FOR 10 DAYS 10 each 11 04/19/2020 05/19/2020 BD HYPODERMIC NEEDLE 18G X 1 MISC USE TO DRAW UP TESTOSTERONE 03/24/2020 07/15/2020 clomiPHENE (CLOMID) 50 MG tablet TK 1 T PO 3 TIMES WEEKLY 5 07/11/2019 09/05/2020 testosterone cypionate (DEPO-TESTOSTERONE) 200 MG/ML injection INJECT 1 ML INTO THE MUSCLE EVERY 12 DAYS 10 mL 04/04/2019 05/02/2020 documented as of this encounter Plan of Treatment Not on file documented as of this encounter Procedures Procedure Name Priority Date/Time Associated Diagnosis Comments XR KNEE LEFT 3 VIEWS STAT 04/25/2020 3:27 PM CDT Acute pain of left knee documented in this encounter Results * XR KNEE LEFT [...] No fracture or dislocation. Electronically signed by: ??Nyasia Ferreira MD ??04/25/2020 4:25 PM CDT Procedure [...] Nyasia Ferreira MD 04/25/2020 4:25 PM CDTWorkstation: [id number] Cody WORKMAN [facility] DI[facility] ORDERA BLES documented in this encounter Visit Diagnoses Diagnosis Acute pain of left knee documented in this encounter Care Teams Mixer Foam Rubber Relationship Specialty Start Date End Date Cody Simms PA [address] [place] [id number] PCP - General Physician Wet Pour Supervisor 10/24/18 03/10/22 documented as of this encounter
--- OUTSIDE RECORDS SUMMARY | 2024-08-23 12:10 | XMS_ITS | Encounter Summary ---
Author Organization [facility] Address [address] [place] [address] Care Team Providers Care Cured Meats Supervisor Name Role Phone Haile Singh MD Primary Care Provider +1 [phone] Reason for Visit * Reason Comments Results labs Encounter Details Date Type Department Care Team (Latest Contact Info) Description 06/10/2018 2:00 PM CDT Office Visit [facility] [address] [place] [address] Cody Simms, PA [address] [place] [address] Hypotestosteronemia (Primary Dx); Dyslipidemia; Hypovitaminosis D; Hyperglycemia; Medication management; Screening PSA (prostate specific antigen) Social History [...] Sign Reading Time Taken Comments Blood Pressure 120/78 06/10/2018 2:01 PM CDT Pulse 75 06/10/2018 2:01 PM CDT Temperature 36.7 ??C (98.1 ??F) 06/10/2018 2:01 PM CD T Respiratory Rate 18 06/10/2018 2:01 PM CDT Oxygen Saturation 98% 06/10/2018 2:01 PM CDT Inhaled Oxygen Concentration - - Weight 84.8 kg (187 lb) 06/10/2018 2:01 PM CDT Height 177.8 cm (5' 10 ) 06/10/2018 2:01 PM CDT Body Mass Index 26.83 06/10/2018 2:01 PM CDT documented in this encounter Progress Notes * Cody Simms Hugh - 06/10/2018 2:00 PM CDT CHIEF COMPLAINT: Chief Complaint Patient presents with ??? Results labs SUBJECTIVE: He presents today for follow-up on labs to include liver function test which satisfactory an A1c currently satisfactory at 5.6 in a lipid panel which has improved in terms of triglycerides and cholesterol however is HDL has dropped some to 27. He does work out regularly and has been taking at testosterone supplementation which is helping his energy level tremendously and his erectile dysfunction as well. ROS: Remainder of a 10 point review of systems is negative other than above PROBLEM LIST: Patient Active Problem List Diagnosis Code ??? IGGY (generalized anxiety disorder) F41.1 ??? Hyperglycemia R73.9 ??? Family history of diabetes mellitus Z83.3 ??? Dyslipidemia E78.5 ??? Hypovitaminosis D E55.9 MEDICATIONS Current Outpatient Prescriptions on File Prior to Visit Medication Sig Dispense Refill ??? Cholecalciferol (VITAMIN D PO) Take 5,000 Units by mouth daily ??? omeprazole (PRILOSEC) 40 MG capsule Take 40 mg by mouth as needed ??? [DISCONTINUED] sildenafil citrate (VIAGRA) 100 MG tablet 1/2 - 1 prn 5 Tab 3 No current facility-administered medications on file prior to visit. ALLERGIES: Allergies Allergen Reactions ??? Codeine Itching Pt states he feels hot, itchy, and he vomits. PHYSICAL EXAM: VITALS: Vitals: 06/10/18 1401 BP: 120/78 Pulse: 75 Resp: 18 Temp: 98.1 ??F (36.7 ??C) SpO2: 98% Weight: 187 lb (84.8 kg) Height: 5' 10 Constitutional: Body mass index is 26.83 kg/m??., No acute distress, Non-toxic appearance. HEENT: [...] edema, Neurologic: grossly intact ASSESMENT & PLAN: Hypotestosteronemia- he states that he would rather get the testosterone from us then having to drive to [place] to the anti aging clinic I agreed to do so and we did send him in a enough to lastfor 3 months at which time we will redraw the testosterone which she is currently in the 800 range. Dyslipidemia-some parts of the lipid panel have improved others have worsened bottom line is he will try to make further changes to his diet and exercise before we entertain the idea of medication miriam would rather not start a new medication currently. Hypovitaminosis D-will order a vitamin-D for follow-up in 3 months. Hyperglycemia-he does have a strong family history of diabetes therefore we will obtain an additional A1c in 3 months this 1 is satisfactory. Screening PSA-due to his taking the testosterone he will have to get his PSA tested in the next 2 months. Final Diagnosis: Encounter Diagnoses Code Name Primary? E34.9 Hypotestosteronemia Yes ??? E78.5 Dyslipidemia ??? E55.9 Hypovitaminosis D ??? R73.9 Hyperglycemia ??? Z79.899 Medication management ??? Z12.5 Screening PSA (prostate specific antigen) Visit Orders: Orders Placed This Encounter Procedures ??? Testosterone, Total And Free, Serum Standing Status: Future Standing Expiration Date: 06/10/2019 ??? Lipid Profile Standing Status: Future Standing Expiration Date: 06/10/2019 ??? Comprehensive metabolic panel Standing Status: Future Standing Expiration Date: 06/10/2019 ??? CBC w Auto Diff Standing Status: Future Standing Expiration Date: 06/10/2019 ??? TSH Third Generation Standing Status: Future Standing Expiration Date: 06/10/2019 ??? PSA Screen Standing Status: Future Standing Expiration Date: 06/10/2019 ??? Hemoglobin A1C Standing Status: Future Standing Expiration Date: 06/10/2019 DISCHARGE MEDS: Outpatient Encounter Prescriptions as of 06/10/2018 Medication Sig Dispense Refill ??? Cholecalciferol (VITAMIN D PO) Take 5,000 Units by mouth daily ??? omeprazole (PRILOSEC) 40 MG capsule Take 40 mg by mouth as needed ??? [DISCONTINUED] sildenafil citrate (VIAGRA) 100 MG tablet 1/2 - 1 prn 5 Tab 3 ??? testosterone cypionate (DEPO-TESTOSTERONE) 200 MG/ML injection Inject 1 mL (200 mg) into the muscle once for 1 dose every 14 days 1 mL 6 ??? [DISCONTINUED] testosterone cypionate (DEPO-TESTOSTERONE) 200 MG/ML injection Inject 1 mL (200 mg) into the muscle once for 1 dose every 14 days 1 mL 3 No facility-administered encounter medications on file as of 06/10/2018. 1. The patient indicates understanding of these [...] documented as of this encounter Results * TESTOSTERONE, TOTAL AND FREE, SERUM (09/08/2018) Cody WORKMAN LAB SEND OUT ORDERA BLES Performing Organization Address [facility] Co de Phone Number [address] * HEMOGLOBIN A1C (09/07/2018 12:06 PM PASTRY ARTIST) Hemoglobin A1C 5.6 4.5 TO 6.2 % [facility] Blood 09/07/2018 12:0 6 PM PASTRY ARTIST Cody WORKMAN CHEMISTRY ORDERABLE S Performing Organization Address [facility] Co de Phone Number [address] * PSA SCREEN (09/07/2018 12:06 PM PASTRY ARTIST) Pathologist [facility] Prostate Specific Antigen Total 0.8 0.1 TO 4.0 ng/mL [facility] Blood 09/07/2018 12:0 6 PM PASTRY ARTIST Cody WORKMAN CHEMISTRY ORDERABLE S Performing Organization Address [facility] Co ms Phone Number [address] * TSH THIRD GENERATION (09/07/2018 12:06 PM PASTRY ARTIST) Pathologist [facility] TSH High Sensitivity 0.68 0.30 TO 3.04 uIU/mL [facility] Blood 09/07/2018 12:0 6 PM PASTRY ARTIST Cody WORKMAN CHEMISTRY ORDERABLE S Performing Organization Address [facility] Co ms Phone Number [address] * (ABNORMAL) CBC W AUTO DIFF (09/07/2018 12:06 PM PASTRY ARTIST) Pathologist [facility] White Blood Cell Count 5.14 4.00 TO 11.00 K/uL [facility] Neutrophils 63.6 34.0 TO 67.9 % [facility] Lymphs 25.5 21.8 TO 53.1 % [facility] Monocytes 8.90 5.3 TO 12.2 % [facility] Eos 1.40 0.8 TO 7.0 % [facility] Basos 0.60 0.2 TO 1.2 % [facility] Neutrophils Absolute Count 3.27 1.78 TO 5.38 K/uL [facility] Lymphocytes Absolute Count 1.31(L) 1.32 TO 3.57 K/uL [facility] Monocytes Absolute Count 0.46 0.30 TO 0.82 K/uL [facility] Eosinophils Absolute Count 0.07 0.04 TO 0.54 K/uL [facility] Basophils Absolute Count 0.03 0.01 TO 0.08 K/uL [facility] Red Blood Cell Count 5.51 4.63 TO 6.08 M/uL [facility] Hemoglobin 16.3 13.7 TO 17.5 g/dL [facility] Hematocrit 49.1 40.1 TO 51.0 % [facility] Mean Corpuscular Volume 89.1 79.0 TO 92.2 [facility] Mean Corpuscular Hemoglobin 29.6 25.[address] [facility] Mean Corpuscular Hemoglobin Conc 33.2 32.3 TO 36.5 g/dL [facility] Red Cell Distribution Width 13.8 11.6 TO 14.4 % [facility] Platelet Count 231 130 TO 450 K/uL [facility] Mean Platelet Volume 9.80 8.1 TO 12.4 [facility] Blood 09/07/2018 12:0 6 PM PASTRY ARTIST Cody WORKMAN HEMATOLOGY ORDERABL ES Performing Organization Address City/State/[facility] Co de Phone Number [facility] [address] * (ABNORMAL) COMPREHENSIVE METABOLIC PANEL (09/07/2018 12:06 PM PASTRY ARTIST) Glucose 102(H) 65 TO 100 mg/dL [facility] Blood Urea Nitrogen 32(H) 7 TO 18 mg/dL [facility] Creatinine 1.3 0.7 TO 1.3 mg/dL [facility] Sodium 142 136 TO 145 mmol/L [facility] Potassium 4.4 3.5 TO 5.1 mmol/L [facility] Chloride 103 98 TO 107 mmol/L [facility] Co2 30 21 TO 32 mmol/L [facility] Calcium 8.9 8.5 TO 10.1 mg/dL [facility] Osmolality 290 273 TO 304 mOsm/L [facility] Protein Total 7.7 6.4 TO 8.2 mg/dL [facility] Albumin 3.9 3.4 TO 5.0 g/dL [facility] Globulin 3.8 2.4 TO 4.2 g/dL [facility] A/G Ratio 1.[address] [facility] Alkaline Phosphatase 67 46 TO 116 U/L [facility] Alt (SGPT) 38 16 TO 63 U/L [facility] AST(SGOT) 22 15 TO 37 U/L [facility] Bilirubin, Total 1.0 0.2 TO 1.0 mg/dL [facility] Est GFR 63 60 TO 150 mL/min/1.7 3m*2 [facility] Blood 09/07/2018 12:0 6 PM PASTRY ARTIST Cody WORKMAN CHEMISTRY ORDERABLE S Performing Organization Address [facility] Co de Phone Number [address] * (ABNORMAL) LIPID PROFILE (09/07/2018 12:06 PM PASTRY ARTIST) Triglycerides 78 0 TO 150 mg/dL [facility] Cholesterol 177 0 TO 200 mg/dL [facility] HDL 36 35 TO 60 mg/dL [facility] LDL Cholesterol 125(H) 0 TO 100 mg/dL [facility] VLDL, Calc 15.6 0.0 TO 35.0 mg/dL [facility] LDL/HDL Ratio 4.[address] [facility] Blood 09/07/2018 12:0 6 PM PASTRY ARTIST Cody WORKMAN CHEMISTRY ORDERABLE S Performing Organization Address City/[facility] Co de Phone Number [address] documented in this encounter Visit Diagnoses Diagnosis Hypotestosteronemia- Primary Dyslipidemia Other and unspecified hyperlipidemia Hypovitaminosis D Unspecified vitamin D deficiency Hyperglycemia Other abnormal glucose Medication management Encounter for long-term (current) use of other medications Screening PSA (prostate specific antigen) Special screening for malignant neoplasm of prostate documented in this encounter Care Teams Cured Meats Supervisor Relationship Specialty Start Date End Date Haile Singh MD [address] [place] [address] PCP - General Family Medicine 10/13/13 09/22/18 documented as of this encounter
--- OUTSIDE RECORDS SUMMARY | 2024-08-23 12:10 | XMS_ITS | Encounter Summary ---
Author Organization [facility] Address [address] [place] [address] Care Team Providers Care Gas Welder Name Role Phone Haile Singh MD Primary Care Provider [phone]- [phone] Reason for Visit * Reason Onset Date Comments Medication Refill 04/29/2017 Encounter Details Date Type Department Care Team (Late st Contact Info) Description 04/29/2017 Refill [facility] [address] [place] [phone] Haile Singh MD [address] [place] [phone] Medication Refill Social History Tobacco Use Types [...] on filedocumented in this encounter Care Teams Gas Welder Relationship Specialty Start Date End Date Haile Singh MD [address] [place] [id number] PCP - General Family Medicine 10/13/13 09/22/18 documented as of this encounter
--- OUTSIDE RECORDS SUMMARY | 2024-08-23 12:10 | XMS_ITS | Encounter Summary ---
Author Organization [facility] Address [address] [place] [address] Care Team Providers Care Inspector Salvage Name Role Phone Haile Singh MD Primary Care Provider +1- [phone] Reason for Visit * Reason Onset Date Comments Medication Refill 11/06/2016 Encounter Details Date Type Department Care Team (Late st Contact Info) Description 11/06/2016 Refill [facility] [address] [place] [address] Haile Singh MD [address] [place] [address] Medication Refill Social History Tobacco [...] encounter Miscellaneous Notes * Telephone Encounter - Megan Singh - 11/06/2016 10:36 AM CST Is scheduled with Niya on 11/17/16 will be out of script before appointment date L RUNNER HELPER documented in this encounter Plan of Treatment Not on file documented as of this encounter Visit Diagnoses Not on filedocumented in this encounter Care Teams Inspector Salvage Relationship Specialty Start Date End Date Haile Singh MD [address] [place] [id number] PCP - General Family Medicine 10/13/13 09/22/18 documented as of this encounter
--- OUTSIDE RECORDS SUMMARY | 2024-08-23 12:10 | XMS_ITS | Encounter Summary ---
Author Organization [facility] Address [address] [place] [address] Care Team Providers Care Pediatric Ophthalmologist Name Role Phone Cody Simms Primary Care Provider +1- [phone] Reason for Visit * Reason Comments Medication Refill Encounter Details Date Type Department Care Team (Late st Contact Info) Description 08/18/2016 Refill [facility] [address] [place] [address] Haile Singh MD [address] [place] [address] Medication Refill Social History Tobacco [...] on filedocumented in this encounter Care Teams Pediatric Ophthalmologist Relationship Specialty Start Date End Date Cody Simms PA [address] [place] [id number] PCP - General Physician Supervisor Dental Laboratory 10/24/18 03/10/22 documented as of this encounter
--- OUTSIDE RECORDS SUMMARY | 2024-08-23 12:10 | XMS_ITS | Encounter Summary ---
Author Organization [facility] Address [address] [place] [address] Care Team Providers Care Data Processing Operator Name Role Phone Cody Simms Primary Care Provider [phone]- [phone] Reason for Visit * Reason Comments Medication Refill Encounter Details Date Type Department Care Team (Late st Contact Info) Description 10/21/2015 Refill [facility] [address] [place] [address] Haile Singh MD [address] [place] [address] Medication Refill Social History Tobacco Use Types Packs/Day Years Used Date Smoking Tobacco: Every Day Cigarettes Alcohol Use Standard Drinks/Week Comments Yes 0 [...] on filedocumented in this encounter Care Teams Data Processing Operator Relationship Specialty Start Date End Date Cody Simms PA [address] [place] [phone] PCP - General Physician Software Project Lead 10/24/18 03/10/22 documented as of this encounter
--- OUTSIDE RECORDS SUMMARY | 2024-08-23 12:10 | XMS_ITS | Encounter Summary ---
Author Organization [facility] Address [address] [place] [address] Care Team Providers Care Nail Kegger Name Role Phone Cody Simms Primary Care Provider +1- [phone] Reason for Visit * Reason Comments Medication Refill Encounter Details Date Type Department Care Team (Late st Contact Info) Description 03/07/2018 Refill [facility] [address] [place] [address] Halie Singh MD [address] [place] [address] Medication Refill Social History Tobacco [...] on filedocumented in this encounter Care Teams Nail Kegger Relationship Specialty Start Date End Date Cody Simms PA [address] [place] [address] PCP - General Physician Lab Intern 10/24/18 03/10/22 documented as of this encounter
--- OUTSIDE RECORDS SUMMARY | 2024-08-23 12:10 | XMS_ITS | Encounter Summary ---
Author Organization [facility] Address [address] [place] [address] Care Team Providers Care Envelope Cutter Name Role Phone Haile Singh MD Primary Care Provider +1- [phone] Reason for Visit * Reason Onset Date Comments Medication Refill 03/07/2018 Encounter Details Date Type Department Care Team (Late st Contact Info) Description 03/07/2018 Refill [facility] [address] [place] [phone] Haile Singh MD [address] [place] [address] Medication Refill Social History Tobacco [...] on filedocumented in this encounter Care Teams Envelope Cutter Relationship Specialty Start Date End Date Haile Singh MD [address] [place], [place] [phone] PCP - General Family Medicine 10/13/13 09/22/18 documented as of this encounter
--- OUTSIDE RECORDS SUMMARY | 2024-08-23 12:10 | XMS_ITS | Encounter Summary ---
Author Organization [facility] Address [address] [place] [address] Care Team Providers Care Import Coordination And Production Head Name Role Phone Haile Singh MD Primary Care Provider [phone] [phone] Reason for Visit * Reason Comments Sinus Problem Patient complains of cough, dry eyes, right ear and throat pain. sinus drainage Encounter Details Date Type Department Care Team (Late st Contact Info) Description 07/08/2017 1:15 PM CDT Office Visit [facility] [address] [place] [phone] Anders Alatorre, RAPID OUTSOLE STITCHER [address] [place] [address] Acute non-recurrent maxillary sinusitis (Primary Dx) Social History Tobacco Use Types [...] Sign Reading Time Taken Comments Blood Pressure 130/72 07/08/2017 1:23 PM CDT Pulse 82 07/08/2017 1:23 PM CDT Temperature 36.9 ??C (98.4 ??F) 07/08/2017 1:23 PM CD T Respiratory Rate 18 07/08/2017 1:23 PM CDT Oxygen Saturation 98% 07/08/2017 1:23 PM CDT Inhaled Oxygen Concentration - - Weight 90.7 kg (200 lb) 07/08/2017 1:23 PM CDT Height 177.8 cm (5' 10 ) 07/08/2017 1:23 PM CDT Body Mass Index 28.7 07/08/2017 1:23 PM CDT documented in this encounter Progress Notes * Anders Alatorre RAPID OUTSOLE STITCHER - 07/08/2017 1:15 PM CDT CHIEF COMPLAINT: Chief Complaint Patient presents with ??? Sinus Problem Patient complains of cough, dry eyes, right ear and throat pain. sinus drainage SUBJECTIVE: He is a 47 y.o. male who presents today with complaints of non-productive, facial tenderness, dry eyes, throat pain, right ear pain, and thick green nasal drainage. Denies fever. Has been eating and drinking well. Has taken anthistahimes with little relief. Social History Social History ??? Marital status: Spouse name: N/A ??? Number of children: N/A ??? Years of education: N/A Occupational History ??? Not on file. Social History Main Topics ??? Smoking status: Former Smoker Packs/day: 1.00 Types: Cigarettes Quit date: 01/22/2015 ??? Smokeless tobacco: Former User ??? Alcohol use Yes Comment: occasional ??? Drug use: No ??? Sexual activity: Not on file Other Topics Concern ??? Not on file Social History Narrative ??? No narrative on file Past Surgical History: Procedure Laterality Date ??? SHOULDER SURGERY 2002 left ROS: Remainder of a 10 point review of systems is negative other than above PROBLEM LIST: Patient Active Problem List Diagnosis Code ??? IGGY (generalized anxiety disorder) F41.1 MEDICATIONS Current Outpatient Prescriptions on File Prior to Visit Medication Sig Dispense Refill ??? ALPRAZolam (XANAX) 0.5 MG tablet Take 1 Tab (0.5 mg) by mouth 3 times daily as needed for Anxiety 90 Tab 2 ??? Cholecalciferol (VITAMIN D PO) Take 5,000 Units by mouth daily ??? omeprazole (PRILOSEC) 40 MG capsule Take 40 mg by mouth as needed No current facility-administered medications on file prior to visit. ALLERGIES: Allergies Allergen Reactions ??? Codeine Itching Pt states he feels hot, itchy, and he vomits. PHYSICAL EXAM: Vitals: 07/08/17 1323 BP: 130/72 Pulse: 82 Resp: 18 Temp: 98.4 ??F (36.9 ??C) SpO2: 98% Weight: 90.7 kg (200 lb) Height: 5' 10 GENERAL: Patient is awake alert and oriented x3 in no acute distress. The patient is well-nourishedand well-developed and, in general, well-appearing. Patient is seated on the exam table. Patient ispleasant and cooperative with the interview and exam. SKIN: Warm, dry, intact. Patient has good skin turgor. LYMPH: No cervical, supraclavicular, or axillary lymphadenopathy bilaterally. HEENT: Head is normocephalic and atraumatic. Tympanic membranes are clear bilaterally. Maxillary sinus tenderness present. Nares moderately congested bilat. Oral mucosa is pink and moist, no tonsillar exudates and no oral pharyngeal lesions. NECK: No cervical lymphadenopathy noted. No thyromegaly appreciated. CHEST: No chest wall tenderness noted. Lungs are clear to auscultation bilaterally. No wheezes, rhonchi, or rales appreciated. CARDIOVASCULAR: Heart is in regular rate and rhythm. S1 and S2 are auscultated. No rubs, gallops, or murmurs appreciated. No carotid bruits b/l. ASSESSMENT & PLAN: John was seen today for sinus problem. Diagnoses and all orders for this visit: Acute non-recurrent maxillary sinusitis - amoxicillin (AMOXIL) 875 MG tablet; Take 1 Tab (875 mg) by mouth 2 times daily for 10 days - predniSONE (DELTASONE) 10 MG tablet; Take 1 Tab (10 mg) by mouth 2 times daily for 5 days Reinforced adequate fluid intake to promote and thin respiratory secretions. May use a cool mist humidifier, saline nasal spray, and antihistamines. If symptoms do not improve/worsen will return to the office. Final Diagnosis: Encounter Diagnoses Code Name Primary? J01.00 Acute non-recurrent maxillary sinusitis Yes Visit Orders: No orders of the defined types were placed in this encounter. Orders Placed This Encounter Medications ??? amoxicillin (AMOXIL) 875 MG tablet Sig: Take 1 Tab (875 mg) by mouth 2 times daily for 10 days Dispense: 20 Tab Refill: 0 ??? predniSONE (DELTASONE) 10 MG tablet Sig: Take 1 Tab (10 mg) by mouth 2 times daily for 5 days Dispense: 10 Tab Refill: 0 1. The patient indicates understanding of these [...] allergies listed in the above medical record This note is electronically signed in the electronic medical record. IPLE CUT OFF SAW OPERATOR documented in this encounter Plan of Treatment Not on file documented as of this encounter Visit Diagnoses Diagnosis Acute non-recurrent maxillary sinusitis- Primary documented in this encounter Care Teams Import Coordination And Production Head Relationship Specialty Start Date End Date Haile Singh MD [address] [place] [id number] PCP - General Family Medicine 10/13/13 09/22/18 documented as of this encounter
--- OUTSIDE RECORDS SUMMARY | 2024-08-23 12:10 | XMS_ITS | Encounter Summary ---
Author Organization [facility] Address [address] [place] [address] Care Team Providers Care Fur Buyer Name Role Phone Haile Singh MD Primary Care Provider [phone] Reason for Visit * Reason Comments Follow-up Here for 2 month fol low up per Niya. Encounter Details Date Type Department Care Team (Late st Contact Info) Description 03/02/2017 11:15 AM CDT Office Visit [address] [phone] Haile Singh MD [address] [place] [phone] IGGY (generalized anxiety disorder) (Primary Dx); Hypotestosteronism; Hypovitaminosis D; Dyslipidemia; Gastroesophageal reflux disease, esophagitis presence not specified Social History Tobacco Use Types Packs/Day Years [...] Sign Reading Time Taken Comments Blood Pressure 108/86 03/02/2017 11:12 AM CDT Pulse 92 03/02/2017 11:02 AM CDT Temperature 36.2 ??C (97.1 ??F) 03/02/2017 11:02 AM C DT Respiratory Rate 20 03/02/2017 11:02 AM CDT Oxygen Saturation 97% 03/02/2017 11:02 AM CDT Inhaled Oxygen Concentration - - Weight 90.7 kg (200 lb) 03/02/2017 11:02 AM CDT Height 177.8 cm (5' 10 ) 03/02/2017 11:02 AM CDT Body Mass Index 28.7 03/02/2017 11:02 AM CDT documented in this encounter Progress Notes * Haile Singh MD - 03/02/2017 11:15 AM CDT Images from the original note were not included. OFFICE NOTE SUBJECTIVE: The patient comes in after blood work. Story is that he has lost 6 pounds and along the way quit his Creatine which he was using to bulk up and his BP has gone down to normal. Likewise his chronic fatigue is not near as bad as it was. On his blood work, white count is 6.71. Hemoglobin is 15.9. Sugar is 99. Platelets are 261. Electrolytes are normal. Creatinine is normal at 1.2. GFR is 70. Liver enzymes are normal. CHDR is 6.1. Triglycerides 208. TSH is 0.61. Free and total testosterone are pending along with vitamin D. He has a runny nose, dry cough. Is on Benadryl. 10 Point ROS is negative except for as noted above. History Smoking Status ??? Former Smoker ??? Packs/day: 1.00 ??? Types: Cigarettes ??? Quit date: 01/22/2015 Smokeless Tobacco ??? Former User Patient's medications, allergies, past medical, surgical, social and family histories were reviewedand updated as appropriate. OBJECTIVE: Visit Vitals BP 108/86 Pulse 92 Temp 97.1 ??F (36.2 ??C) (Tympanic) Resp 20 Ht 5' 10 Wt 90.7 kg (200 lb) SpO2 97% BMI 28.70 kg/m?? Smoking Status Former Smoker BSA 2.12 m?? General: 46 y.o. male that appears stated age in no acute distress. Denies pain. Pleasant and cooperative. Skin: No rash or lesions noted. HEENT: Head is normocephalic and atraumatic. Pupils are equal, round, and reactive to light bilaterally. TM's are clear. Modest turbinate congestion. Throat is without exudate. Prompt deglutition. Neck: Supple without masses or bruits. Respiratory: Lungs are clear to auscultation bilaterally with no wheezes, rhonci or rales appreciated. Cardiovascular: COR is RSR. I hear no murmur, gallop or rub. Abdomen: Soft, non tender and non distended. Extremities: No edema noted. Neurological: Screening neurologic exam nonrevealing. Alert and oriented x 3. Psychological: Normal mood, behavior, speech, dress, motor activity and thought processes. Good eyecontact. ASSESSMENT: ICD-10-CM ICD-9-CM 1. IGGY (generalized anxiety disorder) F41.1 300.02 2. Hypotestosteronism E29.1 257.2 TESTOSTERONE, TOTAL AND FREE, SERUM 3. Hypovitaminosis D E55.9 268.9 4. Dyslipidemia E78.5 272.4 5. Gastroesophageal reflux disease, esophagitis presence not specified K21.9 530.81 PLAN: The patient takes his Prilosec only when he does tomatoes or pizza, things like that, which isn't too often. Going to ask him to get Flonase and Estelle. Will give him walking papers for his second free and total testosterone next week. Will give him a low triglyceride diet. Refill his Xanax. I will see back in 3 months and put it all together. Patient instructed to continue current medications. Orders Placed This Encounter Procedures ??? TESTOSTERONE, TOTAL AND FREE, SERUM Standing Status: Future Number of Occurrences: 1 Standing Expiration Date: 03/02/2018 Orders Placed This Encounter Medications ??? ALPRAZolam (XANAX) 0.5 MG tablet Sig: TAKE ONE TABLET THREE TIMES DAILY NEEDED FOR ANXIETY Dispense: 90 Tab Refill: 1 Medications Discontinued During This Encounter Medication Reason ??? ALPRAZolam (XANAX) 0.5 MG tablet Reorder Return in about 3 months (around 06/02/2017). Haile Singh MD documented in this encounter Plan of Treatment Not on file documented as of this encounter Results * TESTOSTERONE, TOTAL AND FREE, SERUM (03/02/2017) Haile Singh MD LAB SEND OUT MALACHIA MAGDALENA [address] documented in this encounter Visit Diagnoses Diagnosis IGGY (generalized anxiety disorder)- Primary Generalized anxiety disorder Hypotestosteronism Other testicular hypofunction Hypovitaminosis D Unspecified vitamin D deficiency Dyslipidemia Other and unspecified hyperlipidemia Gastroesophageal reflux disease, esophagitis presence not specified documented in this encounter Care Teams Fur Buyer Relationship Specialty Start Date End Date Haile Singh MD [address] [place] [address] PCP - General Family Medicine 10/13/13 09/22/18 documented as of this encounter
--- OUTSIDE RECORDS SUMMARY | 2024-08-23 12:10 | XMS_ITS | Encounter Summary ---
Author Organization [facility] Address [address] [place] [address] Care Team Providers Care Production Intern Name Role Phone Haile Singh MD Primary Care Provider [phone] Reason for Visit * Reason Comments Follow-up Encounter Details Date Type Department Care Team (Late st Contact Info) Description 09/08/2016 2:45 PM HEALTH AND WELLNESS COORDINATOR Office Visit [facility] [address] [place] [phone] Haile Singh MD [address] [place] [phone] IGGY (generalized anxiety disorder) (Primary Dx); Hypovitaminosis D; Chronic fatigue; Medication management; Lipid screening Social History Tobacco Use Types Packs/Day Years [...] Sign Reading Time Taken Comments Blood Pressure 128/80 09/08/2016 2:39 PM HEALTH AND WELLNESS COORDINATOR Pulse 88 09/08/2016 2:39 PM HEALTH AND WELLNESS COORDINATOR Temperature 37 ??C (98.6 ??F) 09/08/2016 2:39 PM HEALTH AND WELLNESS COORDINATOR Respiratory Rate 20 09/08/2016 2:39 PM HEALTH AND WELLNESS COORDINATOR Oxygen Saturation 96% 09/08/2016 2:39 PM HEALTH AND WELLNESS COORDINATOR Inhaled Oxygen Concentration - - Weight 80.3 kg (177 lb) 09/08/2016 2:39 PM HEALTH AND WELLNESS COORDINATOR Height 177.8 cm (5' 10 ) 09/08/2016 2:39 PM HEALTH AND WELLNESS COORDINATOR Body Mass Index 25.4 09/08/2016 2:39 PM HEALTH AND WELLNESS COORDINATOR documented in this encounter Progress Notes * Haile Singh MD - 09/10/2016 2:50 PM CST OFFICE NOTE S: The patient comes in. I have not seen the gentleman myself for some time. In my absence last month he saw Niya who gave him Amoxicillin and flonase and got over his LRI. 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 However, wants lab work to include testosterone level. He lost the slips we had given him before. 10 point ROS is negative except for as noted above. O: The patient is a 46-year-old male. Temp is 98.6. Pulse is 88. Rsp 20. BP 120/80. Oxy is 96% on room air. Denies pain. Stands 70 inches tall. Weight is 177 up a pound with BMI of 25. Quit smoking in 2014. Chest is clear. Cor is in RSR. No pedal edema. A: IGGY; hypovitaminosis vitamin D; fatigue. ICD-10-CM ICD-9-CM 1. IGGY (generalized anxiety disorder) F41.1 300.02 2. Hypovitaminosis D E55.9 268.9 VITAMIN D 25 HYDROXY 3. Chronic fatigue R53.82 780.79 TESTOSTERONE, TOTAL AND FREE, SERUM TSH THIRD GENERATION TESTOSTERONE, TOTAL AND FREE, SERUM 4. Medication management Z79.899 V58.69 CBC W AUTO DIFF COMPREHENSIVE METABOLIC PANEL 5. Lipid screening Z13.220 V77.91 LIPID PROFILE P: Will come in fasting and get exec, lipids, 25 hydroxy vitamin D, free and total testosterone. Next week he will come in, nonfasting, just for the free and total testosterone. I will see back in one month and do full exam. Refill his Xanax for IGGY. Orders Placed This Encounter Medications ??? ALPRAZolam (XANAX) 0.5 MG tablet Sig: TAKE ONE TABLET THREE TIMES DAILY NEEDED FOR ANXIETY MAY CAUSE DROWSINESS Dispense: 90 Tab Refill: 1 This prescription was filled today(08/18/2016). Any refills authorized will be placed on file. Orders Placed This Encounter Procedures ??? CBC w/Auto Diff ??? Comprehensive Metabolic Panel ??? Lipid Profile ??? Vitamin D 25 Hydroxy ??? TESTOSTERONE, TOTAL AND FREE, SERUM ??? TSH Third Generation ??? TESTOSTERONE, TOTAL AND FREE, SERUM Return in about 1 month (around 10/09/2016) for FE. TH AND WELLNESS COORDINATOR documented in this encounter Plan of Treatment Not on file documented as of this encounter Visit Diagnoses Diagnosis IGGY (generalized anxiety disorder)- Primary Generalized anxiety disorder Hypovitaminosis D Unspecified vitamin D deficiency Chronic fatigue Other malaise and fatigue Medication management Encounter for long-term (current) use of other medications Lipid screening Screening for lipoid disorders documented in this encounter Care Teams Production Intern Relationship Specialty Start Date End Date Haile Singh MD [address] [place] [id number] PCP - General Family Medicine 10/13/13 09/22/18 documented as of this encounter
--- OUTSIDE RECORDS SUMMARY | 2024-08-23 12:10 | XMS_ITS | Encounter Summary ---
Author Organization [facility] Address [address] [place] [address] Care Team Providers Care Sales Agent Name Role Phone Haile Singh MD Primary Care Provider [phone] Encounter Details Date Type Department Care Team (Late st Contact Info) Description 05/24/2018 Orders Only [facility] [address] [place] [phone] Haile Singh MD [address] [place] [address] Medication management; Hyperglycemia; Family history of diabetes mellitus; Dyslipidemia Social History Tobacco Use Types Packs/Day [...] Comments TESTOSTERONE, TOTAL AND FREE, SERUM Routine 05/30/2018 Medication management HEMOGLOBIN A1C Routine 05/24/2018 11:58 AM CDT Hyperglycemia Family history of diabetes mellitus HEPATIC (LIVER) FUNCTION PANEL Routine 05/24/2018 11:58 AM CDT Medication management LIPID PROFILE Routine 05/24/2018 11:58 AM CDT Dyslipidemia documented in this encounter Results * TESTOSTERONE, TOTAL AND FREE, SERUM (05/30/2018) Haile Singh MD LAB SEND OUT ORDERA BLES Performing Organization Address [place] Co de Phone Number [address] * (ABNORMAL) LIPID PROFILE (05/24/2018 11:58 AM CDT) Pathologist [facility] Triglycerides 126 0 TO 150 mg/dL [facility] Cholesterol 184 0 TO 200 mg/dL [facility] HDL 29(L) 35 TO 60 mg/dL [facility] LDL Cholesterol 130(H) 0 TO 100 mg/dL [facility] VLDL, Calc 25.2 0.0 TO 35.0 mg/dL [facility] LDL/HDL Ratio 6.3(H) 3.0 TO 6.0 [facility] Blood 05/24/2018 11:5 8 AM CDT Haile Singh MD CHEMISTRY ORDERABLE S Performing Organization Address [place] Co de Phone Number [address] * HEMOGLOBIN A1C (05/24/2018 11:58 AM CDT) [facility] Hemoglobin A1C 5.6 4.5 TO 6.2 % [facility] Blood 05/24/2018 11:5 8 AM CDT Haile Singh MD CHEMISTRY ORDERABLE S Performing Organization Address [facility] Co de Phone Number [address] * HEPATIC (LIVER) FUNCTION PANEL (05/24/2018 11:58 AM CDT) Pathologist [facility] Protein Total 7.8 6.4 TO 8.2 mg/dL [facility] Albumin 3.9 3.4 TO 5.0 g/dL [facility] Globulin 3.9 2.4 TO 4.2 g/dL [facility] A/G Ratio 1.0 0.8 TO 2.0 [facility] Alkaline Phosphatase 65 46 TO 116 U/L [facility] Alt (SGPT) 32 16 TO 63 U/L [facility] AST(SGOT) 18 15 TO 37 U/L [facility] Bilirubin, Total 0.9 0.2 TO 1.0 mg/dL [facility] Bilirubin, Indirect 0.8 0.0 TO 1.3 mg/dL [facility] Bilirubin Direct 0.1 0.0 TO 0.3 mg/dL [facility] Blood 05/24/2018 11:5 8 AM CDT Haile Singh MD CHEMISTRY ORDERABLE S [address] documented in this encounter Visit Diagnoses Diagnosis Medication management Encounter for long-term (current) use of other medications Hyperglycemia Other abnormal glucose Family history of diabetes mellitus Dyslipidemia Other and unspecified hyperlipidemia documented in this encounter Care Teams Sales Agent Relationship Specialty Start Date End Date Haile Singh MD [address] [place] [address] PCP - General Family Medicine 10/13/13 09/22/18 documented as of this encounter
--- OUTSIDE RECORDS SUMMARY | 2024-08-23 12:10 | XMS_ITS | Encounter Summary ---
Author Organization [facility] Address [address] [place] [address] Care Team Providers Care Roofing Sales Representative Name Role Phone Haile Singh MD Primary Care Provider [phone] Encounter Details Date Type Department Care Team (Late st Contact Info) Description 03/03/2017 Orders Only [facility] [address] [place] [phone] Haile Singh MD [address] [place] [address] Hypotestosteronism Social History Tobacco Use Types Packs/Day Years [...] Comments TESTOSTERONE, TOTAL AND FREE, SERUM Routine 03/02 Hypotestosteronism documented in this encounter Results * TESTOSTERONE, TOTAL AND FREE, SERUM (03/02/2017) Haile Singh MD LAB SEND OUT [facility] [address] documented in this encounter Visit Diagnoses Diagnosis Hypotestosteronism Other testicular hypofunction documented in this encounter Care Teams Roofing Sales Representative Relationship Specialty Start Date End Date Haile Singh MD [address] [place] [id number] PCP - General Family Medicine 10/13/13 09/22/18 documented as of this encounter
--- OUTSIDE RECORDS SUMMARY | 2024-08-23 12:10 | XMS_ITS | Encounter Summary ---
Author Organization [facility] Address [address] [place] [address] Care Team Providers Care Japanese Interpreter Name Role Phone Cody Simms Primary Care Provider [phone] Reason for Visit * Reason Comments Medication Refill Encounter Details Date Type Department Care Team (Late st Contact Info) Description 04/20/2016 Refill [facility] [address] [place] [phone] Haile Singh MD [address] [place] [address] Medication Refill Social History Tobacco [...] on filedocumented in this encounter Care Teams Japanese Interpreter Relationship Specialty Start Date End Date Cody Simms PA [address] [place] [phone] PCP - General Physician Barnworker Groom 10/24/18 03/10/22 documented as of this encounter
--- OUTSIDE RECORDS SUMMARY | 2024-08-23 12:10 | XMS_ITS | Encounter Summary ---
Author Organization [facility] Address [address] [place] [address] Care Team Providers Care Senior Sustainability Advisor Name Role Phone Haile Singh MD Primary Care Provider +1 [phone] Reason for Visit * Reason Comments Follow-up Encounter Details Date Type Department Care Team (Late st Contact Info) Description 06/22/2017 1:45 PM CDT Office Visit [facility] [address] [place] [phone] Haile Singh MD [address] [place] [address] IGGY (generalized anxiety disorder) (Primary Dx); Hypovitaminosis D; Dyslipidemia; Medication management; Thyroid disorder screen Social History Tobacco Use Types Packs/Day Years [...] Sign Reading Time Taken Comments Blood Pressure 140/80 06/22/2017 1:50 PM CDT Pulse 88 06/22/2017 1:50 PM CDT Temperature 37.2 ??C (98.9 ??F) 06/22/2017 1:50 PM CD T Respiratory Rate 20 06/22/2017 1:50 PM CDT Oxygen Saturation 97% 06/22/2017 1:50 PM CDT Inhaled Oxygen Concentration - - Weight 91.2 kg (201 lb) 06/22/2017 1:50 PM CDT Height 177.8 cm (5' 10 ) 06/22/2017 1:50 PM CDT Body Mass Index 28.84 06/22/2017 1:50 PM CDT documented in this encounter Progress Notes * Haile Singh MD - 06/22/2017 1:45 PM CDT Images from the original note were not included. OFFICE NOTE SUBJECTIVE: The patient comes in, a year older. He got just a testosterone and total is a little bit low at 329but that is fixed and his free testosterone is normal at 15.9. Still complains of his erection not being as firm as they usually are. Has been a while since we have done other blood tests. He is working out, has gained a pound and it is all muscle. Wants his Xanax refilled. 10 Point ROS is negative except for as noted above. History Smoking Status ??? Former Smoker ??? Packs/day: 1.00 ??? Types: Cigarettes ??? Quit date: 01/22/2015 Smokeless Tobacco ??? Former User Patient's medications, allergies, past medical, surgical, social and family histories were reviewedand updated as appropriate. OBJECTIVE: Visit Vitals BP 140/80 (BP Site: Left Arm, Patient Position: Sitting, BP Cuff Size: Medium) Pulse 88 Temp 98.9 ??F (37.2 ??C) (Tympanic) Resp 20 Ht 5' 10 Wt 91.2 kg (201 lb) SpO2 97% BMI 28.84 kg/m?? Smoking Status Former Smoker BSA 2.12 m?? General: 47 y.o. male that appears stated age in no acute distress. Denies pain. Pleasant and cooperative. Skin: No rash or lesions noted. HEENT: Head is normocephalic and atraumatic. Pupils are equal, round, and reactive to light bilaterally. TM's are clear. No turbinate congestion. Throat is without exudate. Prompt [...] E55.9 268.9 VITAMIN D 25 HYDROXY 3. Dyslipidemia E78.5 272.4 LIPID PROFILE 4. Medication management Z79.899 V58.69 CBC W AUTO DIFF COMPREHENSIVE METABOLIC PANEL 5. Thyroid disorder screen Z13.29 V77.0 TSH THIRD GENERATION PLAN: Going to get a new free and total testosterone. I am going to see back in 3 months post exec, lipids, 25 hydroxy vitamin D and do a full exam. Vitamin D is borderline at 32, only on 2000 IU. Told himto try to go back up to the 5000 IU and will go from there. Refill his Xanax. Defers flu shot. Patient instructed to continue current medications. Orders Placed This Encounter Procedures ??? CBC w/Auto Diff (Future 3 Months) Standing Status: Future Standing Expiration Date: 12/19/2017 ??? Comprehensive Metabolic Panel (Future 3 Months) Standing Status: Future Standing Expiration Date: 12/19/2017 ??? Lipid Profile (Future 3 Months) Standing Status: Future Standing Expiration Date: 12/19/2017 ??? TSH Third Generation (Future 3 Months) Standing Status: Future Standing Expiration Date: 12/19/2017 ??? Vitamin D 25 Hydroxy (Future 3 Months) Standing Status: Future Standing Expiration Date: 06/22/2018 Orders Placed This Encounter Medications ??? ALPRAZolam (XANAX) 0.5 MG tablet Sig: Take 1 Tab (0.5 mg) by mouth 3 times daily as needed for Anxiety Dispense: 90 Tab Refill: 2 Medications Discontinued During This Encounter Medication Reason ??? ALPRAZolam (XANAX) 0.5 MG tablet Reorder Return in about 3 months (around 09/22/2017) for post lab. Haile Singh MD documented in this encounter Plan of Treatment Not on file documented as of this encounter Results * VITAMIN D 25 HYDROXY (12/11/2017 12:20 PM CDT) Pathologist [facility] Vit D 25 Hydroxy 32.4 30.0 TO 100.0 ng/mL [facility] 12/11/2017 12:2 0 PM CDT Haile Singh MD CHEMISTRY ORDERABLE S Performing Organization Address [facility]/ZIP Co de Phone Number [address] * TSH THIRD GENERATION (12/11/2017 12:20 PM CDT) Pathologist [facility] TSH High Sensitivity 0.71 0.30 TO 3.04 uIU/mL [facility] Blood 12/11/2017 12:2 0 PM CDT Haile Singh MD CHEMISTRY ORDERABLE S Performing Organization Address [facility] Co de Phone Number [address] * (ABNORMAL) LIPID PROFILE (12/11/2017 12:20 PM CDT) Pathologist [facility] Triglycerides 383(H) 0 TO 150 mg/dL [facility] Cholesterol 238(H) 0 TO 200 mg/dL [facility] HDL 34(L) 35 TO 60 mg/dL [facility] LDL Cholesterol 127(H) 0 TO 100 mg/dL [facility] VLDL, Calc 76.6(H) 0.0 TO 35.0 mg/dL [facility] LDL/HDL Ratio 7.0(H) 3.0 TO 6.0 [facility] Comment: LDL is not valid when triglyceride is greater than 400 mg/dL Blood 12/11/2017 12:2 0 PM CDT Haile Singh MD CHEMISTRY ORDERABLE S Performing Organization Address [facility] Co de Phone Number [address] * (ABNORMAL) COMPREHENSIVE METABOLIC PANEL (12/11/2017 12:20 PM CDT) Pathologist [facility] Glucose 102(H) 65 TO 100 mg/dL [facility] Blood Urea Nitrogen 21(H) 7 TO 18 mg/dL [facility] Creatinine 1.2 0.7 TO 1.3 mg/dL [facility] Sodium 140 136 TO 145 mmol/L [facility] Potassium 4.0 3.5 TO 5.1 mmol/L [facility] Chloride 100 98 TO 107 mmol/L [facility] Co2 30 21 TO 32 mmol/L [facility] Calcium 8.7 8.5 TO 10.1 mg/dL [facility] Osmolality 283 273 TO 304 mOsm/L [facility] Protein Total 7.5 6.4 TO 8.2 mg/dL [facility] Albumin 3.7 3.4 TO 5.0 g/dL [facility] Globulin 3.8 2.4 TO 4.2 g/dL [facility] A/G Ratio 1.0 0.8 TO 2.0 [facility] Alkaline Phosphatase 80 46 TO 116 U/L [facility] Alt (SGPT) 52 16 TO 63 U/L [facility] AST(SGOT) 25 15 TO 37 U/L [facility] Bilirubin, Total 0.6 0.2 TO 1.0 mg/dL [facility] Est GFR 70 60 TO 150 mL/min/1.7 3m*2 [facility] Comment: *THE GFR IS NOT APPLICABLE FOR PEDIATRIC PATIENTS, NOR THOSE >70 YEARS OLD. GFR NORMAL RANGE >60 mL/min Blood 12/11/2017 12:2 0 PM CDT Haile Singh MD CHEMISTRY ORDERABLE S Performing Organization Address City/State/[facility] Co de Phone Number [facility] [address] [place] [address] * (ABNORMAL) CBC W AUTO DIFF (12/11/2017 12:20 PM CDT) Pathologist [facility] White Blood Cell Count 6.79 4.00 TO 11.00 K/uL [facility] Neutrophils 67.0 34.0 TO 67.9 % [facility] Lymphs 21.4(L) 21.8 TO 53.1 % [facility] Monocytes 9.10 5.3 TO 12.2 % [facility] Eos 1.90 0.8 TO 7.0 % [facility] Basos 0.60 0.2 TO 1.2 % [facility] Neutrophils Absolute Count 4.55 1.78 TO 5.38 K/uL [facility] Lymphocytes Absolute Count 1.45 1.32 TO 3.57 K/uL [facility] Monocytes Absolute Count 0.62 0.30 TO 0.82 K/uL [facility] Eosinophils Absolute Count 0.13 0.04 TO 0.54 KuL [facility] Basophils Absolute Count 0.04 0.01 TO 0.08 /uL [facility] Red Blood Cell Count 4.89 4.63 TO 6.08 M/uL [facility] Hemoglobin 15.0 13.7 TO 17.5 g/dL [facility] Hematocrit 43.7 40.1 TO 51.0 % [facility] Mean Corpuscular Volume 89.4 79.0 TO 92.2 [facility] Mean Corpuscular Hemoglobin 30.7 25.7 TO 32.2 pg [facility] Mean Corpuscular Hemoglobin Conc 34.3 32.3 TO 36.5 g/dL [facility] Red Cell Distribution Width 12.6 11.6 TO 14.4 % [facility] Platelet Count 280 130 TO 450 K/uL [facility] Mean Platelet Volume 9.30 8.1 TO 12.4 [facility] Comment:.................... Blood 12/11/2017 12:2 0 PM CDT Haile Singh MD HEMATOLOGY ORDERABL [facility] Organization Address City/State/[facility] Co de Phone Number [address] documented in this encounter Visit Diagnoses Diagnosis IGGY (generalized anxiety disorder)- Primary Generalized anxiety disorder Hypovitaminosis D Unspecified vitamin D deficiency Dyslipidemia Other and unspecified hyperlipidemia Medication management Encounter for long-term (current) use of other medications Thyroid disorder screen Screening for thyroid disorder documented in this encounter Care Teams Senior Sustainability Advisor Relationship Specialty Start Date End Date Haile Singh MD [address] [place] [address] PCP - General Family Medicine 10/13/13 09/22/18 documented as of this encounter
--- OUTSIDE RECORDS SUMMARY | 2024-08-23 12:10 | XMS_ITS | Encounter Summary ---
Author Organization [facility] Address [address] [place] [address] Care Team Providers Care Patient Care Nursing Assistant Name Role Phone Cody Simms Primary Care Provider [phone]- [phone] Reason for Visit * Reason Comments Medication Refill Encounter Details Date Type Department Care Team (Late st Contact Info) Description 02/13/2016 Refill [facility] [address] [place] [address] Haile Singh MD [address] [place] [address] Medication Refill Social History Tobacco [...] on filedocumented in this encounter Care Teams Patient Care Nursing Assistant Relationship Specialty Start Date End Date Cody Simms PA [address] [place] [address] PCP - General Physician Concert Pianist 10/24/18 03/10/22 documented as of this encounter
--- OUTSIDE RECORDS SUMMARY | 2024-08-23 12:10 | XMS_ITS | Encounter Summary ---
Author Organization [facility] Address [address] [place] [address] Care Team Providers Care Ammonia Worker Name Role Phone Haile Singh MD Primary Care Provider [phone] Reason for Visit * Reason Comments Follow-up Here to follow up fo r medication refills on xanax. Encounter Details Date Type Department Care Team (Late st Contact Info) Description 01/07/2017 3:30 PM CDT Office Visit [facility] [address] [place] [phone] [place] [address] [place] [address] Anxiety (Primary Dx); Panic disorder; Elevated blood pressure reading Social History Tobacco Use Types Packs/Day Years [...] Sign Reading Time Taken Comments Blood Pressure 170/96 01/07/2017 3:28 PM CDT Pulse 86 01/07/2017 3:28 PM CDT Temperature 36 ??C (96.8 ??F) 01/07/2017 3:28 PM CDT Respiratory Rate 20 01/07/2017 3:28 PM CDT Oxygen Saturation 97% 01/07/2017 3:28 PM CDT Inhaled Oxygen Concentration - - Weight 93.4 kg (206 lb) 01/07/2017 3:28 PM CDT Height 177.8 cm (5' 10 ) 01/07/2017 3:28 PM CDT Body Mass Index 29.56 01/07/2017 3:28 PM CDT documented in this encounter Progress Notes * Niya Mcknight PA - 01/07/2017 3:42 PM CDT Images from the original note were not included. OFFICE NOTE Chief Complaint Patient presents with ??? Follow-up Here to follow up for medication refills on xanax. SUBJECTIVE: John Veliz is 46 y.o. year old male that presents for FOLLOW UP as noted above. Patient seen on September 08, [address] Singh for general anxiety disorder. Vitamin-D deficiency. Chronic fatigue. Medication management lipid screening.. Treatment- Xanax was refilled and patient given slip for labs. Was return to clinic in [address] Singh for full exam however Dr Singh has been off on medical leave. Patient doing well with current medication regimen. Denies any overt panic attacks. Denies any depressive episodes. Patient states that he has tried SSRIs in the past without improvement. States there are days he takes the Xanax 3 times a day other's days does not take any at all. Has not seemed tobuild up a tolerance to this. Did discuss addition of maintenance therapy. Patient states that he is open to this if he starts noticing that the Xanax 0.5 does not work. 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 Elevated blood pressure-. Patient's blood pressure is elevated today. Has been drinking whey protein and creatine to help build muscle. Denies any chest pain or shortness of breath. Previous blood pressures have been normal range. Patient has gained 29 lb since September. A 10 point ROS was completed and negative except as noted in HPI History Smoking status ??? Former Smoker -- 1.00 packs/day ??? Types: Cigarettes ??? Quit date: 01/22/2015 Smokeless tobacco ??? Former User OBJECT RITESH: Visit Vitals Item Reading ??? BP 170/96 mmHg ??? Pulse 86 ??? Temp(Src) 96.8 ??F (36 ??C) (Tympanic) ??? Resp 20 ??? Ht 5' 10 ??? Wt 93.441 kg (206 lb) ??? BMI 29.56 kg/m2 ??? SpO2 97% Physical Examination: General appearance - alert, well appearing, and in no distress, oriented to person, place, and time and normal appearing weight Mental status - alert, oriented to person, place, and time, normal mood, behavior, speech, dress, motor activity, and thought processes Eyes - sclera anicteric, left eye normal, right eye normal Mouth - mucous membranes moist, pharynx normal without lesions Neck - supple, no significant adenopathy, thyroid exam: thyroid is normal in size without nodules or tenderness Lymphatics - no palpable lymphadenopathy, no hepatosplenomegaly Chest - clear to auscultation, no wheezes, rales or rhonchi, symmetric air entry Heart - normal rate, regular rhythm, normal S1, S2, no murmurs, rubs, clicks or gallops Abdomen - soft, nontender, nondistended, no masses or organomegaly Extremities - peripheral pulses normal, no pedal edema, no clubbing or cyanosis Skin - normal coloration and turgor, no rashes, no suspicious skin lesions noted Psych-patient does make good eye contact. Speech is coherent and not rash. Pleasant and cooperative. Encounter Diagnoses Name Primary? Anxiety Yes ??? Panic disorder ??? Elevated blood pressure reading PLAN: TREATMENT CHANGES - anxiety/panic disorder. Will continue with current medication regimen. Did havepatient sign medication management contract. Did do drug screen. Refill as noted below. Elevated blood pressure. Recommend patient stop whey protein and creatine. Will monitor blood pressure at home and return to clinic if continues above 130/80. Orders Placed This Encounter Procedures ??? [employer] DRUG SCREEN URINE Orders Placed This Encounter Medications ??? ALPRAZolam (XANAX) 0.5 MG tablet Sig: TAKE ONE TABLET THREE TIMES DAILY NEEDED FOR ANXIETY Dispense: 90 Tab Refill: 1 Return in about 2 months (around 03/09/2017). JI Vasquez 01/07/2017 6:33 PM This hydrometeorological technician was electronically signed. It was dictated by use of voice recognition software and electronically transcribed. The hydrometeorological technician may contain errors not detected in proofreading. documented in this encounter Plan of Treatment Not on file documented as of this encounter Results * [employer] DRUG SCREEN URINE (01/12/2017) Niya WORKMAN LAB SEND OUT ORDER MEVLIN Performing Organization Address City/State/[facility] Co de Phone Number [address] documented in this encounter Visit Diagnoses Diagnosis Anxiety- Primary Anxiety state, unspecified Panic disorder Panic disorder without agoraphobia Elevated blood pressure reading Elevated blood pressure reading without diagnosis of hypertension documented in this encounter Care Teams Ammonia Worker Relationship Specialty Start Date End Date Haile Singh MD [address] [place] [address] PCP - General Family Medicine 10/13/13 09/22/18 documented as of this encounter
--- OUTSIDE RECORDS SUMMARY | 2024-08-23 12:10 | XMS_ITS | Encounter Summary ---
Author Organization [facility] Address [address] [place] [address] Care Team Providers Care Material Spreader Name Role Phone Cody Simms Primary Care Provider [phone]- [phone] Reason for Visit * Reason Comments Medication Refill Encounter Details Date Type Department Care Team (Late st Contact Info) Description 03/13/2016 Refill [facility] [address] [place] [address] Haile Singh MD [address] [place] [address] Medication Refill Social History Tobacco [...] on filedocumented in this encounter Care Teams Material Spreader Relationship Specialty Start Date End Date Cody Simms PA [address] [place] [address] PCP - General Physician Solution Advisor 10/24/18 03/10/22 documented as of this encounter
--- OUTSIDE RECORDS SUMMARY | 2024-08-23 12:10 | XMS_ITS | Encounter Summary ---
Author Organization [facility] Address [address] [place] [address] Care Team Providers Care Poker Machine Attendant Name Role Phone Joanna Mckeon NP Primary Care Provider +1- [phone] Reason for Visit * Reason Onset Date Comments Medication Refill 09/15/2017 Encounter Details Date Type Department Care Team (Late st Contact Info) Description 09/15/2017 Refill [facility] [address] [place] [address] Haile Singh MD [address] [place] [address] Medication Refill Social History Tobacco [...] encounter Miscellaneous Notes * Telephone Encounter - Lauren Franco - 09/15/2017 1:38 PM CST John called wanting to know when his next appointment with Francisco was he ask if there was something sooner since he will be out of his medication on the th of this month and his appointment isn't until the . He didn't know if Francisco would be willing to write the prescription of if he could get an earlier appointment. INE QUILT STUFFER documented in this encounter Plan of Treatment Not on file documented as of this encounter Visit Diagnoses Not on filedocumented in this encounter Care Teams Poker Machine Attendant Relationship Specialty Start Date End Date Joanna Mckeon NP [facility] [address] [place] [address] PCP - General Physician Exercise Instruct 08/31/23 documented as of this encounter
--- OUTSIDE RECORDS SUMMARY | 2024-08-23 12:10 | XMS_ITS | Encounter Summary ---
Author Organization [facility] Address [address] [place] [address] Care Team Providers Care Office Cleaner Name Role Phone Cody Simms Primary Care Provider [phone]- [phone] Reason for Visit * Reason Comments Medication Refill Encounter Details Date Type Department Care Team (Late st Contact Info) Description 04/30/2017 Refill [facility] [address] [place] [address] Haile Singh MD [address] [place] [address] Medication Refill Social History Tobacco [...] on filedocumented in this encounter Care Teams Office Cleaner Relationship Specialty Start Date End Date Cody Simms PA [address] [place] [address] PCP - General Physician Geodesy Teacher 10/24/18 03/10/22 documented as of this encounter
--- OUTSIDE RECORDS SUMMARY | 2024-08-23 12:10 | XMS_ITS | Encounter Summary ---
Author Organization [facility] Address [address] [place] [address] Care Team Providers Care Dampener Operator Name Role Phone Cody Simms Primary Care Provider +1- [phone] Reason for Visit * Reason Comments Medication Refill Encounter Details Date Type Department Care Team (Late st Contact Info) Description 11/09/2016 Refill [facility] [address] [place] [address] Haile Singh MD [address] [place] [address] Medication Refill Social History Tobacco [...] on filedocumented in this encounter Care Teams Dampener Operator Relationship Specialty Start Date End Date Cody Simms PA [address] [place] [address] PCP - General Physician Special Librarian 10/24/18 03/10/22 documented as of this encounter
--- OUTSIDE RECORDS SUMMARY | 2024-08-23 12:10 | XMS_ITS | Encounter Summary ---
Author Organization [facility] Address [address] [place] [address] Care Team Providers Care Drophammer Operator Name Role Phone Haile Singh MD Primary Care Provider [phone] Reason for Visit * Reason Comments Follow-up Encounter Details Date Type Department Care Team (Late st Contact Info) Description 05/25/2016 4:30 PM CDT Office Visit [facility] [address] [place] [phone] Haile Singh MD [address] [place] [phone] IGGY (generalized anxiety disorder) (Primary Dx); Panic disorder; Seasonal allergic rhinitis due to pollen; Fatigue, unspecified type; Medication management; Hypovitaminosis D; Lipid screening; Thyroid disorder screen Social History Tobacco Use Types Packs/Day Years Used Date Smoking Tobacco: Former Cigarettes Q uit: 01/22/2015 Tobacco Cessation:Counseling Given: Yes Alcohol Use Standard Drinks/Week Comments Yes 0 (1 standard drink = 0.6 oz pur e alcohol) occasional Sex and Gender Information Value Date Recorded Sex Assigned at Not on file Gender Identity Not on file Sexual Orientation Not on file documented as of this encounter Last Filed Vital Signs Vital Sign Reading Time Taken Comments Blood Pressure 140/84 05/25/2016 4:32 PM CDT Pulse 76 05/25/2016 4:32 PM CDT Temperature 37 ??C (98.6 ??F) 05/25/2016 4:32 PM CDT Respiratory Rate 20 05/25/2016 4:32 PM CDT Oxygen Saturation 96% 05/25/2016 4:32 PM CDT Inhaled Oxygen Concentration - - Weight 87.1 kg (192 lb) 05/25/2016 4:32 PM CDT Height 177.8 cm (5' 10 ) 05/25/2016 4:32 PM CDT Body Mass Index 27.55 05/25/2016 4:32 PM CDT documented in this encounter Progress Notes * Haile Singh MD - 05/26/2016 1:24 PM CDT Images from the original note were not included. OFFICE NOTE SUBJECTIVE: The patient returns. Not seen the gentleman for quite some time. Last time he were here, was when he saw Hola. Story was that he was not getting along with his . Ended up her, moved away and has moved back now. Never did like 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 Wants blood work to include testosterone. Has a runny nose. Takes Benadryl and Estelle off and, basically just deals with it. States he quit smoking in February of last year and lifts weights. 10 Point ROS is negative except for as noted above. History Smoking status ??? Former Smoker -- 1.00 packs/day ??? Types: Cigarettes ??? Quit date: 01/22/2015 Smokeless tobacco ??? Not on file Patient's medications, allergies, past medical, surgical, social and family histories were reviewedand updated as appropriate. OBJECTIVE: Visit Vitals Item Reading ??? BP 140/84 mmHg ??? Pulse 76 ??? Temp(Src) 98.6 ??F (37 ??C) (Tympanic) ??? Resp 20 ??? Ht 5' 10 ??? Wt 87.091 kg (192 lb) ??? BMI 27.55 kg/m2 ??? SpO2 96% General: 45 y.o. male that appears stated age in [...] IGGY (generalized anxiety disorder) F41.1 300.02 2. Panic disorder F41.0 300.01 3. Seasonal allergies J30.2 477.9 4. Fatigue, unspecified type R53.83 780.79 CBC W AUTO DIFF COMPREHENSIVE METABOLIC PANEL TESTOS FREE/TOTAL ADULT MALE TESTOS FREE/TOTAL ADULT MALE 5. Medication management Z79.899 V58.69 CBC W AUTO DIFF COMPREHENSIVE METABOLIC PANEL 6. Hypovitaminosis D E55.9 268.9 VITAMIN D 25 HYDROXY 7. Lipid screening Z13.220 V77.91 LIPID PROFILE 8. Thyroid disorder screen Z13.29 V77.0 TSH THIRD GENERATION PLAN: Per patient's request, will get free and total testosterone, twice, the first time will be fasting,will get exec, lipids, 25 hydroxy vitamin D. Second time be of a morning a week or so later. I willsee back in a month and do a full exam. Patient instructed to continue current medications. Orders Placed This Encounter Procedures ??? CBC w/Auto Diff Standing Status: Future Number of Occurrences: Standing Expiration Date: 05/25/2017 ??? Comprehensive Metabolic Panel Standing Status: Future Number of Occurrences: Standing Expiration Date: 05/25/2017 ??? Lipid Profile Standing Status: Future Number of Occurrences: Standing Expiration Date: 05/25/2017 ??? TSH Third Generation Standing Status: Future Number of Occurrences: Standing Expiration Date: 05/25/2017 ??? Vitamin D 25 Hydroxy Standing Status: Future Number of Occurrences: Standing Expiration Date: 05/25/2017 ??? TESTOS FREE/TOTAL ADULT MALE Standing Status: Future Number of Occurrences: Standing Expiration Date: 05/25/2017 ??? TESTOS FREE/TOTAL ADULT MALE Standing Status: Future Number of Occurrences: Standing Expiration Date: 05/25/2017 Orders Placed This Encounter Medications ??? ALPRAZolam (XANAX) 0.5 MG tablet Sig: Take 1 Tab (0.5 mg) by mouth 3 times daily as needed for Anxiety Dispense: 90 Tab Refill: 2 Medications Discontinued During This Encounter Medication Reason ??? ALPRAZolam (XANAX) 0.5 MG tablet ??? ALPRAZolam (XANAX) 0.5 MG tablet Reorder Return in about 1 month (around 06/24/2016). Haile Singh MD documented in this encounter Plan of Treatment Scheduled Orders Name Type Priority Associated Diagnoses Orde r Schedule TESTOS FREE/TOTAL ADULT MALE Lab Routine Fatigue, unspecified type Expected: 05/25/2016, Expires: 05/25/2017 documented as of this encounter Results * TESTOS FREE/TOTAL ADULT MALE (12/13/2017) Haile Singh MD CHEMISTRY ORDERABLE S Performing Organization Address [facility] Co de Phone Number [address] * VITAMIN D 25 HYDROXY (03/02/2017) Haile Singh MD CHEMISTRY ORDERABLE S Performing Organization Address [facility] Co de Phone Number [address] * TSH THIRD GENERATION (03/01/2017) Blood Haile Singh MD CHEMISTRY ORDERABLE S Performing Organization Address [facility] Co de Phone Number [address] * LIPID PROFILE (03/01/2017) Blood Haile Singh MD CHEMISTRY ORDERABLE S Performing Organization Address [facility] Co de Phone Number [address] * COMPREHENSIVE METABOLIC PANEL (03/01/2017) Blood Haile Singh MD CHEMISTRY ORDERABLE S Performing Organization Address [facility]/ZIP Co de Phone Number [address] * CBC W AUTO DIFF (03/01/2017) Blood Haile Singh MD HEMATOLOGY ORDERABL ES Performing Organization Address [facility] Co de Phone Number [address] documented in this encounter Visit Diagnoses Diagnosis IGGY (generalized anxiety disorder)- Primary Generalized anxiety disorder Panic disorder Panic disorder without agoraphobia Seasonal allergic rhinitis due to pollen Fatigue, unspecified type Medication management Encounter for long-term (current) use of other medications Hypovitaminosis D Unspecified vitamin D deficiency Lipid screening Screening for lipoid disorders Thyroid disorder screen Screening for thyroid disorder documented in this encounter Care Teams Drophammer Operator Relationship Specialty Start Date End Date Haile Singh MD [address] [place] [address] PCP - General Family Medicine 10/13/13 09/22/18 documented as of this encounter
--- OUTSIDE RECORDS SUMMARY | 2024-08-23 12:10 | XMS_ITS | Encounter Summary ---
Author Organization [facility] Address [address] [place] [address] Care Team Providers Care Software Qa Manager Name Role Phone Haile Singh MD Primary Care Provider [phone]- [phone] Reason for Visit * Reason Onset Date Comments Medication Refill 05/26/2016 Encounter Details Date Type Department Care Team (Late st Contact Info) Description 05/26/2016 Refill [facility] [address] [place] [phone] Haile Singh MD [address] [place] [phone] Medication Refill Social History Tobacco Use Types Packs/Day Years Used Date Smoking Tobacco: Former Cigarettes Q uit: 01/22/2015 Alcohol Use Standard Drinks/Week Comments Yes 0 [...] on filedocumented in this encounter Care Teams Software Qa Manager Relationship Specialty Start Date End Date Haile Singh MD [address] [place] [phone] PCP - General Family Medicine 10/13/13 09/22/18 documented as of this encounter
--- OUTSIDE RECORDS SUMMARY | 2024-08-23 12:10 | XMS_ITS | Encounter Summary ---
Author Organization [facility] Address [address] [place] [address] Care Team Providers Care Plaster Mold Maker Name Role Phone Haile Singh MD Primary Care Provider [phone] Reason for Visit * Reason Comments Nasal Congestion C/o sinus congestion and pressure, sore throat and right ear pain. Encounter Details Date Type Department Care Team (Late st Contact Info) Description 08/11/2016 2:15 PM ENGRAVER OPTICAL FRAMES Office Visit [facility] [address] [place] [phone] Niya Mcknight PA [address] [place] [address] Acute URI (Primary Dx) Social History Tobacco Use Types [...] Sign Reading Time Taken Comments Blood Pressure 116/86 08/11/2016 2:08 PM ENGRAVER OPTICAL FRAMES Pulse 88 08/11/2016 2:08 PM ENGRAVER OPTICAL FRAMES Temperature 36.9 ??C (98.5 ??F) 08/11/2016 2:08 PM CS T Respiratory Rate 20 08/11/2016 2:08 PM ENGRAVER OPTICAL FRAMES Oxygen Saturation 97% 08/11/2016 2:08 PM ENGRAVER OPTICAL FRAMES Inhaled Oxygen Concentration - - Weight 79.8 kg (176 lb) 08/11/2016 2:08 PM ENGRAVER OPTICAL FRAMES Height 177.8 cm (5' 10 ) 08/11/2016 2:08 PM ENGRAVER OPTICAL FRAMES Body Mass Index 25.25 08/11/2016 2:08 PM ENGRAVER OPTICAL FRAMES documented in this encounter Patient Instructions * Patient Instructions* Niya Mcknight PA - 08/11/2016 2:33 PM ENGRAVER OPTICAL FRAMES Hot liquids AVER OPTICAL FRAMES documented in this encounter Progress Notes * Niya Mcknight PA - 08/11/2016 2:24 PM CST Images from the original note were not included. Subjective: Patient ID: John Veliz is a 46 y.o. male. Chief Complaint: Nasal Congestion This is a new problem. The current episode started in the past 7 days. The problem occurs constantly. The problem has been gradually worsening. Associated symptoms include chills, congestion, coughing, diaphoresis, fatigue, headaches, a sore throat and vertigo. Pertinent negatives include no abdominal pain, anorexia, change in bowel habit, chest pain, fever, joint swelling, nausea, neck pain, numbness, rash, swollen glands, visual change or vomiting. The symptoms are aggravated by bending and coughing. Treatments tried: IBU, mike. The treatment provided no relief. Review of Systems Constitutional: Positive for chills, diaphoresis and fatigue. Negative for fever. HENT: Positive for congestion, ear pain, postnasal drip, rhinorrhea, sinus pressure, sneezing, sorethroat and tinnitus. Negative for ear discharge and hearing loss. Eyes: Negative. Respiratory: Positive for cough. Cardiovascular: Negative for chest pain, palpitations and leg swelling. Gastrointestinal: Negative for nausea, vomiting, abdominal pain, anorexia and change in bowel habit. Endocrine: Negative. Genitourinary: Negative. Musculoskeletal: Negative for joint swelling and neck pain. Skin: Negative for rash. Neurological: Positive for vertigo and headaches. Negative for numbness. Objective: Physical Exam Constitutional: He is oriented to person, place, and time. He appears well- developed and well-nourished. HENT: Head: Normocephalic. Right Ear: Hearing normal. Tympanic membrane is retracted. A middle ear effusion is present. Left Ear: Hearing, tympanic membrane, external ear and ear canal normal. Nose: Mucosal edema present. Right sinus exhibits maxillary sinus tenderness. Left sinus exhibits maxillary sinus tenderness. Mouth/Throat: Uvula is midline. Posterior oropharyngeal erythema present. Cobblestoning noted posterior pharynx Eyes: Right eye exhibits no discharge. Left eye exhibits no discharge. Neck: Neck supple. Cardiovascular: Normal rate, regular rhythm and normal heart sounds. No murmur heard. Pulmonary/Chest: Effort normal and breath sounds normal. Abdominal: Soft. Bowel sounds are normal. Neurological: He is alert and oriented to person, place, and time. Skin: Skin is warm and dry. No rash noted. Blood pressure 116/86, pulse 88, temperature 98.5 ??F (36.9 ??C), temperature source Tympanic, resp. rate 20, height 5' 10 , weight 79.833 kg (176 lb), SpO2 97 %. Assessment: 1. Acute URI Plan: Orders Placed This Encounter Medications ??? amoxicillin (AMOXIL) 500 MG capsule Sig: Take 1 Cap (500 mg) by mouth 3 times daily for 10 days Dispense: 30 Cap Refill: 0 ??? fluticasone (FLONASE) 50 MCG/ACT nasal spray Si Steele by Nasal route daily Dispense: 1 Inhaler Refill: 2 Recommended decongestants OTC. Recommended hot liquids. Return if symptoms worsen or fail to improve. AVER OPTICAL FRAMES documented in this encounter Plan of Treatment Not on file documented as of this encounter Visit Diagnoses Diagnosis Acute URI- Primary Acute upper respiratory infections of unspecified site documented in this encounter Care Teams Plaster Mold Maker Relationship Specialty Start Date End Date Haile Singh MD [address] [place] [phone] PCP - General Family Medicine 10/13/13 09/22/18 documented as of this encounter
--- OUTSIDE RECORDS SUMMARY | 2024-08-23 12:10 | XMS_ITS | Encounter Summary ---
Author Organization [facility] Address [address] [place] [address] Care Team Providers Care Cut Out Worker Name Role Phone Haile Singh MD Primary Care Provider [phone]- [phone] Encounter Details Date Type Department Care Team (Latest Contact Info) Description 2017 [facility] [address] [place] [phone] Kirby Miller CMA Hypotestosteronism (Primary Dx) Social History Tobacco Use Types [...] as of this encounter Visit Diagnoses Diagnosis Hypotestosteronism- Primary Other testicular hypofunction documented in this encounter Care Teams Cut Out Worker Relationship Specialty Start Date End Date Haile Singh MD [address] [place] [address] PCP - General Family Medicine 10/13/13 09/22/18 documented as of this encounter
--- OUTSIDE RECORDS SUMMARY | 2024-08-23 12:10 | XMS_ITS | Encounter Summary ---
Author Organization [facility] Address [address] [place] [address] Care Team Providers Care Siebel Consultant Name Role Phone Haile Singh MD Primary Care Provider [phone]- [phone] Encounter Details Date Type Department Care Team (Late st Contact Info) Description 01/22/2017 Orders Only [facility] [address] [place] [phone] Niya Mcknight PA [address] [place] [address] Anxiety Social History Tobacco Use Types Packs/Day [...] Procedure Name Priority Date/Time Associated Diagnosis Comments AMERITOX DRUG SCREEN URINE Routine 01/12/2017 Anxiety documented in this encounter Results * AMERITOX DRUG SCREEN URINE (01/12/2017) Niya WORKMAN LAB SEND OUT ORDER [facility] [address] [place] [address] documented in this encounter Visit Diagnoses Diagnosis Anxiety Anxiety state, unspecified documented in this encounter Care Teams Siebel Consultant Relationship Specialty Start Date End Date Haile Singh MD [address] [place] [phone] PCP - General Family Medicine 10/13/13 09/22/18 documented as of this encounter
--- OUTSIDE RECORDS SUMMARY | 2024-08-23 12:10 | XMS_ITS | Encounter Summary ---
Author Organization [facility] Address [address] [place] [address] Care Team Providers Care Telephone Operators Supervisor Name Role Phone Haile Singh MD Primary Care Provider [phone] Reason for Visit * Reason Comments Follow-up follow up labs Encounter Details Date Type Department Care Team (Late st Contact Info) Description 12/13/2017 2:30 PM CDT Office Visit [address] [phone] Haile Singh MD [address] [place] [phone] IGGY (generalized anxiety disorder) (Primary Dx); Hyperglycemia; Family history of diabetes mellitus; Dyslipidemia; Hypovitaminosis D; Medication management Social History Tobacco Use Types [...] Sign Reading Time Taken Comments Blood Pressure 122/88 12/13/2017 2:55 PM CDT Pulse 92 12/13/2017 2:55 PM CDT Temperature 36.7 ??C (98 ??F) 12/13/2017 2:55 PM CDT Respiratory Rate 20 12/13/2017 2:55 PM CDT Oxygen Saturation 96% 12/13/2017 2:55 PM CDT Inhaled Oxygen Concentration - - Weight 93.4 kg (206 lb) 12/13/2017 2:55 PM CDT Height 177.8 cm (5' 10 ) 12/13/2017 2:55 PM CDT Body Mass Index 29.56 12/13/2017 2:55 PM CDT documented in this encounter Progress Notes * Haile Singh MD - 12/13/2017 2:30 PM CDT Images from the original note were not included. OFFICE NOTE SUBJECTIVE: The patient comes in after lab work at almost 5 month interval. Has gained 6 pounds but is mostly muscle. Got blood work last week which shows a vitamin D down a little from before to 32.4 in spite of being on over 5000 a day. Triglycerides up to 383, over the holidays. HDL dropped from 36 to 34. His CHDR went from 6.1 to 7.0. Sugar is 102. Diabetes on his mom's side. BUN is 21. Creatinine 1.2. His GFR is 70. Liver functions are normal. White count is 6.79. Hemoglobin is 15.0. Platelets are 280. His total testosterone is 303. His free testosterone is good 16.1. Complains of some minor ED. Still some anxious and still not getting enough sleep. 10 Point ROS is negative except for as noted above. History Smoking Status ??? Former Smoker ??? Packs/day: 1.00 ??? Types: Cigarettes ??? Quit date: 01/22/2015 Smokeless Tobacco ??? Former User Patient's medications, allergies, past medical, surgical, social and family histories were reviewedand updated as appropriate. OBJECTIVE: Visit Vitals BP 122/88 Pulse 92 Temp 98 ??F (36.7 ??C) (Tympanic) Resp 20 Ht 5' 10 Wt 93.4 kg (206 lb) SpO2 96% BMI 29.56 kg/m?? Smoking Status Former Smoker BSA 2.15 m?? General: 47 y.o. male that appears stated age in no acute distress. Denies pain. Pleasant and cooperative. Skin: No rash or lesions noted. ENT: TM's are clear. No turbinate congestion. Throat [...] nonrevealing. Alert and oriented x 3. Psychological: Appears anxious. Normal speech, dress, motor activity and thought processes. Good eye contact. ASSESSMENT: ICD-10-CM ICD-9-CM 1. IGGY (generalized anxiety disorder) F41.1 300.02 2. Hyperglycemia R73.9 790.29 HEMOGLOBIN A1C 3. Family history of diabetes mellitus Z83.3 V18.0 HEMOGLOBIN A1C 4. Dyslipidemia E78.5 272.4 LIPID PROFILE 5. Hypovitaminosis D E55.9 268.9 6. Medication management Z79.899 V58.69 HEPATIC (LIVER) FUNCTION PANEL TESTOSTERONE, TOTAL AND FREE, SERUM PLAN: The patient defers full exam today. Going to have him go up to 7500 vitamin D three a day. Give himlow cholesterol diet. Write for generic Viagra 100mg, 1/2 to 1 as needed with refills. See back in 3 months. Get full exam at that time. Because of the hyperglycemia and family history, get an A1C also. Patient instructed to continue current medications. Orders Placed This Encounter Procedures ??? Hepatic (Liver) Function Panel (Future 4 Months) Standing Status: Future Standing Expiration Date: 06/11/2018 ??? Hemoglobin A1C (Future 4 Months) Standing Status: Future Standing Expiration Date: 06/11/2018 ??? Lipid Profile (Future 4 Months) Standing Status: Future Standing Expiration Date: 06/11/2018 ??? Testosterone, Total And Free, Serum Standing Status: Future Standing Expiration Date: 12/13/2018 Orders Placed This Encounter Medications ??? ALPRAZolam (XANAX) 0.5 MG tablet Sig: Take 1 Tab (0.5 mg) by mouth 3 times daily as needed for Anxiety Dispense: 90 Tab Refill: 2 ??? sildenafil citrate (VIAGRA) 100 MG tablet Si/2 - 1 prn Dispense: 5 Tab Refill: 3 Medications Discontinued During This Encounter Medication Reason ??? ALPRAZolam (XANAX) 0.5 MG tablet Reorder Return in about 4 months (around 04/14/2018) for post lab. Haile Singh MD documented in this encounter Plan of Treatment Not on file documented as of this encounter Results * TESTOSTERONE, TOTAL AND FREE, SERUM (05/30/2018) Haile Singh MD LAB SEND OUT ORDERA BLES Performing Organization Address [facility] Co de Phone Number [address] * (ABNORMAL) LIPID PROFILE (05/24/2018 11:58 AM CDT) Triglycerides 126 0 TO 150 mg/dL [facility] Cholesterol 184 0 TO 200 mg/dL [facility] HDL 29(L) 35 TO 60 mg/dL [facility] LDL Cholesterol 130(H) 0 TO 100 mg/dL [facility] VLDL, Calc 25.2 0.0 TO 35.0 mg/dL [facility] LDL/HDL Ratio 6.3(H) 3.0 TO 6.0 [facility] Blood 05/24/2018 11:5 8 AM CDT Haile Singh MD CHEMISTRY ORDERABLE S Performing Organization Address [facility] Number [address] * HEMOGLOBIN A1C (05/24/2018 11:58 AM CDT) Hemoglobin A1C 5.6 4.5 TO 6.2 % [facility] Blood 05/24/2018 11:5 8 AM CDT Haile Singh MD CHEMISTRY ORDERABLE S Performing Organization Address [facility] Co de Phone Number [address] * HEPATIC (LIVER) FUNCTION PANEL (05/24/2018 11:58 AM CDT) Protein Total 7.8 6.4 TO 8.2 mg/dL [facility] Albumin 3.9 3.4 TO 5.0 g/dL [facility] Globulin 3.9 2.4 TO 4.2 g/dL [facility] A/G Ratio 1.0 0.8 TO 2.0 [facility] Alkaline Phosphatase 65 46 TO 116 U/L [facility] Alt (SGPT) 32 16 TO 63 U/L [facility] AST(SGOT) 18 15 TO 37 U/L [facility] Bilirubin, Total 0.9 0.2 TO 1.0 mg/dL [facility] Bilirubin, Indirect 0.8 0.0 TO 1.3 mg/dL [facility] Bilirubin Direct 0.1 0.0 TO 0.3 mg/dL [facility] Blood 05/24/2018 11:5 8 AM CDT Haile Singh MD CHEMISTRY ORDERABLE S Performing Organization Address City/State/[facility] Co de Phone Number [address] documented in this encounter Visit Diagnoses Diagnosis IGGY (generalized anxiety disorder)- Primary Generalized anxiety disorder Hyperglycemia Other abnormal glucose Family history of diabetes mellitus Dyslipidemia Other and unspecified hyperlipidemia Hypovitaminosis D Unspecified vitamin D deficiency Medication management Encounter for long-term (current) use of other medications documented in this encounter Care Teams Telephone Operators Supervisor Relationship Specialty Start Date End Date Haile Singh MD [address] [place] [address] PCP - General Family Medicine 10/13/13 09/22/18 documented as of this encounter
--- OUTSIDE RECORDS SUMMARY | 2024-08-23 12:10 | XMS_ITS | Encounter Summary ---
Author Organization [facility] Address [address] [place] [address] Care Team Providers Care Transport Engineer Name Role Phone Haile Singh MD Primary Care Provider [phone]- [phone] Encounter Details Date Type Department Care Team (Late st Contact Info) Description 12/11/2017 Orders Only [facility] Practice [address] [place] [phone] Haile Singh MD [address] [place] [address] Medication management; Dyslipidemia; Thyroid disorder screen; Hypovitaminosis D Social History Tobacco Use Types [...] Associated Diagnosis Comments TSH THIRD GENERATION Routine 12/11/2017 12:20 PM CDT Thyroid disorder screen VITAMIN D 25 HYDROXY Routine 12/11/2017 12:20 PM CDT Hypovitaminosis D CBC W AUTO DIFF Routine 12/11/2017 12:20 PM CDT Medication management LIPID PROFILE Routine 12/11/2017 12:20 PM CDT Dyslipidemia COMPREHENSIVE METABOLIC PANEL Routine 12/11/2017 12:20 PM CDT Medication management documented in this encounter Results * VITAMIN D 25 HYDROXY (12/11/2017 12:20 PM CDT) Pathologist [facility] Vit D 25 Hydroxy 32.4 30.0 TO 100.0 ng/mL [facility] 12/11/2017 12:2 0 PM CDT Haile Singh MD CHEMISTRY ORDERABLE S Performing Organization Address [facility]/ZIP Co de Phone Number [address] * TSH THIRD GENERATION (12/11/2017 12:20 PM CDT) Pathologist [facility] TSH High Sensitivity 0.71 0.30 TO 3.04 uIU/mL [facility] Blood 12/11/2017 12:2 0 PM CDT Haile Singh MD CHEMISTRY ORDERABLE S Performing Organization Address [facility]/ZIP Co de Phone Number [address] * (ABNORMAL) LIPID PROFILE (12/11/2017 12:20 PM CDT) Pathologist [facility] Triglycerides 383(H) 0 TO 150 mg/dL [facility] Cholesterol 238(H) 0 TO 200 mg/dL [facility] HDL 34(L) 35 TO 60 mg/dL [facility] LDL Cholesterol 127(H) 0 TO 100 mg/dL [facility] VLDL, Calc 76.6(H) 0.0 TO 35.0 mg/dL [facility] LDL/HDL Ratio 7.0(H) 3.0 TO 6.0 [facility] Comment: LDL is not valid when triglyceride is greater than 400 mg/dL Blood 12/11/2017 12:2 0 PM CDT Haile Singh MD CHEMISTRY ORDERABLE S [address] * (ABNORMAL) COMPREHENSIVE METABOLIC PANEL (12/11/2017 12:20 PM CDT) Pathologist [facility] Glucose 102(H) 65 TO 100 mg/dL [facility] Blood Urea Nitrogen 21(H) 7 TO 18 mg/dL [facility] Creatinine 1.2 0.7 TO 1.3 mg/dL [facility] Sodium 140 136 TO 145 mmol/L [facility] Potassium 4.0 3.5 TO 5.1 mmol/L [facility] Chloride 100 98 TO 107 mmol/L [facility] Co2 30 21 TO 32 mmol/L [facility] Calcium 8.7 8.5 TO 10.1 mg/dL [facility] Osmolality 283 273 TO 304 mOsm/L [facility] Protein Total 7.5 6.4 TO 8.2 mg/dL [facility] Albumin 3.7 3.4 TO 5.0 g/dL [facility] Globulin 3.8 2.4 TO 4.2 g/dL [facility] A/G Ratio 1.0 0.8 TO 2.0 [facility] Alkaline Phosphatase 80 46 TO 116 U/L [facility] Alt (SGPT) 52 16 TO 63 U/L [facility] AST(SGOT) 25 15 TO 37 U/L [facility] Bilirubin, Total 0.6 0.2 TO 1.0 mg/dL [facility] Est GFR 70 60 TO 150 mL/min/1.7 3m*2 [facility] Comment: *THE GFR IS NOT APPLICABLE FOR PEDIATRIC PATIENTS, NOR THOSE >70 YEARS OLD. GFR NORMAL RANGE >60 mL/min Blood 12/11/2017 12:2 0 PM CDT Haile Singh MD CHEMISTRY ORDERABLE S [address] * (ABNORMAL) CBC W AUTO DIFF (12/11/2017 12:20 PM CDT) White Blood Cell Count 6.79 4.00 TO 11.00 K/uL [facility] Neutrophils 67.0 34.0 TO 67.9 % [facility] Lymphs 21.4(L) 21.8 TO 53.1 % [facility] Monocytes 9.10 5.3 TO 12.2 % [facility] Eos 1.90 0.8 TO 7.0 % [facility] Basos 0.60 0.2 TO 1.2 % [facility] Neutrophils Absolute Count 4.55 1.78 TO 5.38 K/uL [facility] Lymphocytes Absolute Count 1.45 1.32 TO 3.57 K/uL [facility] Monocytes Absolute Count 0.62 0.30 TO 0.82 K/uL [facility] Eosinophils Absolute Count 0.13 0.04 TO 0.54 K/uL [facility] Basophils Absolute Count 0.04 0.01 TO 0.08 K/uL [facility] Red Blood Cell Count 4.89 4.63 TO 6.08 M/uL [facility] Hemoglobin 15.0 13.7 TO 17.5 g/dL [facility] Hematocrit 43.7 40.1 TO 51.0 % [facility] Mean Corpuscular Volume 89.4 79.0 TO 92.2 [facility] Mean Corpuscular Hemoglobin 30.7 25.7 TO 32.[address] [facility] Mean Corpuscular Hemoglobin Conc 34.3 32.3 TO 36.5 g/dL [facility] Red Cell Distribution Width 12.6 11.6 TO 14.4 % [facility] Platelet Count 280 130 TO 450 K/uL [facility] Mean Platelet Volume 9.30 8.1 TO 12.4 [facility] Comment:.................... Blood 12/11/2017 12:2 0 PM CDT Haile Singh MD HEMATOLOGY ORDERABL ES [address] documented in this encounter Visit Diagnoses Diagnosis Medication management Encounter for long-term (current) use of other medications Dyslipidemia Other and unspecified hyperlipidemia Thyroid disorder screen Screening for thyroid disorder Hypovitaminosis D Unspecified vitamin D deficiency documented in this encounter Care Teams Transport Engineer Relationship Specialty Start Date End Date Haile Singh MD [address] [place] [address] [place] [address] PCP - General Family Medicine 10/13/13 09/22/18 documented as of this encounter
--- OUTSIDE RECORDS SUMMARY | 2024-08-23 12:10 | XMS_ITS | Encounter Summary ---
Author Organization [facility] Address [address] [place] [address] Care Team Providers Care Dual Rate Supervisor Name Role Phone Haile Singh MD Primary Care Provider [phone]- [phone] Reason for Visit * Reason Onset Date Comments Other 04/30/2017 Encounter Details Date Type Department Care Team (Late st Contact Info) Description 04/30/2017 Telephone [facility] Practice [address] [place] [phone] Haile Singh MD [address] [place] [address] Other Social History Tobacco Use Types [...] encounter Miscellaneous Notes * Telephone Encounter - Haile Singh MD - 04/30/2017 1:25 PM CDT You can call it in. And evelyn Jackson. * Telephone Encounter - Ambreen Niño CNA - 04/30/2017 12:00 PM CDT Patient called regarding his Xanax. He would like it faxed to [facility] in [place]. Can reach him at [phone]. documented in this encounter Plan of Treatment Not on file documented as of this encounter Visit Diagnoses Not on filedocumented in this encounter Care Teams Dual Rate Supervisor Relationship Specialty Start Date End Date Haile Singh MD [address] [place] [address] PCP - General Family Medicine 10/13/13 09/22/18 documented as of this encounter
--- OUTSIDE RECORDS SUMMARY | 2024-08-23 12:10 | XMS_ITS | Encounter Summary ---
Author Organization [facility] Address [address] [place] [address] Care Team Providers Care Automotive Parts Counter Assistant Name Role Phone Haile Singh MD Primary Care Provider [phone] Encounter Details Date Type Department Care Team (Late st Contact Info) Description 03/01/2017 Orders Only [facility] Practice [address] [place] [phone] Haile Singh MD [address] [place] [address] Fatigue, unspecified type; Medication management; Lipid screening; Thyroid disorder screen; Hypovitaminosis D Social History [...] Name Priority Date/Time Associated Diagnosis Comments TESTOS FREE/TOTAL ADULT MALE Routine 12/13/2017 Fatigue, unspecified type VITAMIN D 25 HYDROXY Routine 03/02/2017 Hypovitaminosis D TSH THIRD GENERATION Routine 03/01/2017 Thyroid disorder screen CBC W AUTO DIFF Routine 03/01/2017 Fatigue, unspecified type Medication management LIPID PROFILE Routine 03/01/2017 Lipid screening COMPREHENSIVE METABOLIC PANEL Routine 03/01/2017 Fatigue, unspecified type Medication management documented in this encounter Results * TESTOS FREE/TOTAL ADULT MALE (12/13/2017) Haile Singh MD CHEMISTRY ORDERABLE S Performing Organization Address [facility] Co de Phone Number [address] * VITAMIN D 25 HYDROXY (03/02/2017) Haile Singh MD CHEMISTRY ORDERABLE S Performing Organization Address [facility] Co de Phone Number [address] * TSH THIRD GENERATION (03/01/2017) Blood Haile Singh MD CHEMISTRY ORDERABLE S Performing Organization Address [facility] Co de Phone Number [address] * LIPID PROFILE (03/01/2017) Blood Haile Singh MD CHEMISTRY ORDERABLE S Performing Organization Address [facility] Co de Phone Number [address] * COMPREHENSIVE METABOLIC PANEL (03/01/2017) Blood Haile Singh MD CHEMISTRY ORDERABLE S Performing Organization Address [facility] Co de Phone Number [address] * CBC W AUTO DIFF (03/01/2017) Blood Haile Singh MD HEMATOLOGY ORDERABL ES Performing Organization Address [facility] Co de Phone Number [address] documented in this encounter Visit Diagnoses Diagnosis Fatigue, unspecified type Medication management Encounter for long-term (current) use of other medications Lipid screening Screening for lipoid disorders Thyroid disorder screen Screening for thyroid disorder Hypovitaminosis D Unspecified vitamin D deficiency documented in this encounter Care Teams Automotive Parts Counter Assistant Relationship Specialty Start Date End Date Haile Singh MD [address] [place] [address] PCP - General Family Medicine 10/13/13 09/22/18 documented as of this encounter
--- OUTSIDE RECORDS SUMMARY | 2024-08-23 12:11 | XMS_ITS | Encounter Summary ---
Author Organization [facility] Address [address] [place] [address] Care Team Providers Care Access Analyst Name Role Phone Haile Singh MD Primary Care Provider +1- [phone] Reason for Visit * Reason Onset Date Comments Medication Refill 04/30/2015 Encounter Details Date Type Department Care Team (Late st Contact Info) Description 04/30/2015 Refill [facility] Family Practice [address] [place] [phone] Haile Singh MD [address] [place] [address] Medication Refill Social History Tobacco Use [...] on filedocumented in this encounter Care Teams Access Analyst Relationship Specialty Start Date End Date Haile Singh MD [address] [place] [address] PCP - General Family Medicine 10/13/13 09/22/18 documented as of this encounter
--- OUTSIDE RECORDS SUMMARY | 2024-08-23 12:11 | XMS_ITS | Encounter Summary ---
Author Organization [facility] Address [address] [place] [address] Care Team Providers Care Online Merchandiser Name Role Phone Cody Simms Primary Care Provider +1- [phone] Reason for Visit * Reason Comments Medication Refill Encounter Details Date Type Department Care Team (Late st Contact Info) Description 08/28/2014 Refill [facility] Family Practice [address] [place] [phone] Hola Thomas PA [facility] [address] [place] [address] Medication Refill Social History Tobacco Use Types [...] Telephone Encounter - Zuleika Joseph CNA - 08/28/2014 12:24 PM ROTARY DRUM DYER This was done by already! RY DRUM DYER documented in this encounter Plan of Treatment Not on file documented as of this encounter Visit Diagnoses Not on filedocumented in this encounter Care Teams Online Merchandiser Relationship Specialty Start Date End Date Cody Simms PA [address] [place] [address] PCP - General Physician Psychologist Engineering 10/24/18 03/10/22 documented as of this encounter
--- OUTSIDE RECORDS SUMMARY | 2024-08-23 12:11 | XMS_ITS | Encounter Summary ---
Author Organization [facility] Address [address] [place] [address] Care Team Providers Care Machine Container Washer Name Role Phone Haile Singh MD Primary Care Provider [phone]- [phone] Reason for Visit * Reason Comments Medication Refill Encounter Details Date Type Department Care Team ([facility] st Contact Info) Description 08/09/2014 8:00 AM LENS MARKER Office Visit [facility] Practice [address] [place] [address] Hola Thomas PA [address] [place] [address] Anxiety (Primary Dx); Panic attacks Social History Tobacco Use Types Packs/Day Years [...] Sign Reading Time Taken Comments Blood Pressure 142/70 08/09/2014 8:22 AM LENS MARKER Pulse 100 08/09/2014 8:22 AM LENS MARKER Temperature 36.3 ??C (97.3 ??F) 08/09/2014 8:22 AM CS T Respiratory Rate 18 08/09/2014 8:22 AM LENS MARKER Oxygen Saturation 94% 08/09/2014 8:22 AM LENS MARKER Inhaled Oxygen Concentration - - Weight 65.3 kg (144 lb) 08/09/2014 8:22 AM LENS MARKER Height 177.8 cm (5' 10 ) 08/09/2014 8:22 AM LENS MARKER Body Mass Index 20.66 08/09/2014 8:22 AM LENS MARKER documented in this encounter Patient Instructions * Patient Instructions* Hola Thomas PA - 08/09/2014 8:37 AM LENS MARKER Anxiety WHAT YOU SHOULD KNOW: Anxiety is a condition that causes you to feel excessive worry, uneasiness, or fear. Family or workstress, smoking, caffeine, and alcohol can increase your risk for anxiety. Certain medicines or health conditions can also increase your risk. Anxiety may begin gradually, and can become a long-term condition if it is not managed or treated. AFTER YOU LEAVE: Medicines: ?? Medicines can help you feel more calm and relaxed, and decrease your symptoms. ?? Take your medicine as directed. Contact your primary healthcare provider (PHP) if you think yourmedicine is not helping or if you have side effects. Tell him if you are allergic to any medicine. Keep a list of the medicines, vitamins, and herbs you take. Include the amounts, and when and why you take them. Bring the list or the pill bottles to follow-up visits. Carry your medicine list with you in case of an emergency. Follow up with your PHP within 2 weeks or as directed: Write down your questions so you remember toask them during your visits. Manage anxiety: ?? Go to counseling as directed. Cognitive behavioral therapy can help you understand and change how you react to events that trigger your symptoms. ?? Find ways to manage your symptoms. Activities such as exercise, meditation, or listening to music can help you relax. ?? Practice deep breathing. Breathing can change how your body reacts to stress. Focus on taking slow, deep breaths several times a day, or during an anxiety attack. Breathe in through your nose, andout through your mouth. ?? Avoid caffeine. Caffeine can make your symptoms worse. Avoid foods or drinks that are meant to increase your energy level. ?? Limit or avoid alcohol. Ask your PHP if alcohol is safe for you. You may not be able to drink alcohol if you take certain anxiety or depression medicines. Limit alcohol to 1 drink per day if you are a woman. Limit alcohol to 2 drinks per day if you are a man. A drink of alcohol is 12 ounces of beer, 5 ounces of wine, or 1?? ounces of liquor. Contact your PHP if: ?? Your symptoms get worse or do not get better with treatment. ?? You think your medicine may be causing side effects. ?? Your anxiety keeps you from doing your regular daily activities. ?? You have new symptoms since your last visit. ?? You have questions or concerns about your condition or care. Seek care immediately or call 911 if: ?? You have chest pain, tightness, or heaviness that may spread to your shoulders, arms, jaw, neck,or back. ?? You feel like hurting yourself or someone else. ?? You feel dizzy, lightheaded, or faint. ?? 2013 [employer]. Information is for End User's use only and may not be sold, redistributed or otherwise used for commercial purposes. All illustrations and images included in CareNotes?? are the copyrighted property of [employer]. or [employer]. The above information is an financial aids officer only. It is not intended as medical advice for individual conditions or treatments. Talk to your doctor, nurse or pharmacist before following any medical regimen to see if it is safe and effective for you. MARKER documented in this encounter Progress Notes * Hola Thomas PA - 08/09/2014 8:29 AM CST Subjective: CC: Chief Complaint Patient presents with ??? Medication Refill HPI: John Veliz is a 44 y.o. WM who presents for refills on Xanax. He received a prescription for Xanax 0.5 mg PO bid-tid prn anxiety #75 with 2 RFs on 05/28/14. He states he is stable on his current dosage. He states he had an appointment scheduled for 08/15/[address] Singh, but he is going out of town for work and needed to get his medication. He also states he is not taking the Seroquel very often. He states it does help him fall asleep, but it makes him feel very groggy the next morning. I did speak with [facility] after his last appointment and was told he had not picked up hisSeroquel since 08/18. He also states that he has been having a panic attack almost every day for the past few weeks due to some marital problems with his . He states she is living with her parents at this time and is talking about a trial separation. He states he feels lightheaded, faint, gets short of breath, and feels like his heart is racing during a panic attack. He states the Xanax does help with the panic attacks. ROS: A complete 10-point ROS was performed and found to be negative unless otherwise mentioned in the HPI Allergies Allergen Reactions ??? Codeine Itching Pt states he feels hot, itchy, and he vomits. History Smoking status ??? Current Every Day Smoker -- 1.0 packs/day ??? Types: Cigarettes Smokeless tobacco ??? Not on file Pain scale: Denies pain. Objective: Vital signs: BP 142/70 Pulse 100 Temp 97.3 ??F (36.3 ??C) Resp 18 Ht 5' 10 Wt 65.318 kg (144 lb) BMI 20.66 kg/m2 SpO2 94% Body mass index is 20.66 kg/(m^2). PE: General: Well-appearing WM that appears his stated age. The patient is pleasant and cooperative with the interview and exam. He is conscious, alert, and oriented x 3 in no acute distress. Skin: PWD. HEENT: Head is normocephalic and atraumatic. Pupils are equal, round, and reactive to light bilaterally. Extraocular movements are intact. Tympanic membranes are clear bilaterally. Nasal mucosa is noncongested bilaterally. Oral mucosa is pink and moist with no tonsillar exudates and no oropharyngeal lesions. Neck: No cervical lymphadenopathy noted. No thyromegaly appreciated. Respiratory: Lungs are clear to auscultation bilaterally with no wheezes, rhonchi, or rales appreciated. No intercostal retractions or nasal flaring. The patient speaks in full sentences. Cardiovascular: Regular rate and rhythm. S1 and S2 are auscultated. No rubs, gallops, or murmurs appreciated. Abdomen: Soft, nontender, and nondistended. There are positive bowel sounds in all 4 quadrants. No masses or hepatosplenomegaly appreciated. Musculoskeletal: Full ROM and strength 5/5 throughout. Extremities: No clubbing, cyanosis, or edema noted. Neurologic: No specific focal neurologic deficits noted. Assessment/Plan: Encounter Diagnoses Name Primary? Anxiety Yes ??? Panic attacks Orders Placed This Encounter Medications ??? ALPRAZolam (XANAX) 0.5 MG tablet Si tab PO bid-tid prn anxiety Dispense: 75 Tab Refill: 0 ??? fluoxetine (PROZAC) 20 MG tablet Sig: Take 1 Tab (20 mg) by mouth daily Dispense: 30 Tab Refill: 2 I will start the patient on Prozac 20 mg 1 tab PO qd and see if it helps with his anxiety/panic attacks. He is to f/u with Dr. Singh in 3 months. Aftercare instructions given. Return in about 3 months (around 11/07/2014), or if symptoms worsen or fail to improve. 1. The patient indicates understanding of these issues and agrees with the plan. 2. The patient is given an After Visit Summary sheet that lists all of their medications with directions, their allergies, orders placed during this encounter, immunization dates, and follow-up instructions. 3. I reviewed the patient's medical information and medical history 4. I reconciled the patient's medication list and prepared and supplied needed refills. 5. I have reviewed the past medical, family, and social history sections including the medications and allergies listed in the above medical record MARKER documented in this encounter Plan of Treatment Not on file documented as of this encounter Visit Diagnoses Diagnosis Anxiety- Primary Anxiety state, unspecified Panic attacks Panic disorder without agoraphobia documented in this encounter Care Teams Machine Container Washer Relationship Specialty Start Date End Date Haile Singh MD [address] [place] [id number] PCP - General Family Medicine 10/13/13 09/22/18 documented as of this encounter
--- OUTSIDE RECORDS SUMMARY | 2024-08-23 12:11 | XMS_ITS | Encounter Summary ---
Author Organization [facility] Address [address] [place] [address] Care Team Providers Care Manager Country Name Role Phone Cody Simms Primary Care Provider +1- [phone] Reason for Visit * Reason Comments Medication Refill Encounter Details Date Type Department Care Team (Late st Contact Info) Description 10/19/2014 Refill [facility] Family Practice [address] [place] [address] Haile Singh MD [address] [place] [address] Medication Refill Social History Tobacco [...] filedocumented in this encounter Care Teams Manager Country Relationship Specialty Start Date End Date Cody Simms PA [address] [place] [address] PCP - General Physician Vehicle Fare Collector 10/24/18 03/10/22 documented as of this encounter
--- OUTSIDE RECORDS SUMMARY | 2024-08-23 12:11 | XMS_ITS | Encounter Summary ---
Author Organization [facility] Address [address] [place] [address] Care Team Providers Care Plant Maintenance Worker Name Role Phone Haile Singh MD Primary Care Provider +1- [phone] Reason for Visit * Reason Onset Date Comments Medication Refill 04/01/2015 Encounter Details Date Type Department Care Team (Late st Contact Info) Description 04/01/2015 Refill [facility] Family Practice [address] [place] [phone] Haile Singh MD [address] [place] [address] Medication Refill Social History Tobacco Use [...] on filedocumented in this encounter Care Teams Plant Maintenance Worker Relationship Specialty Start Date End Date Haile Singh MD [address] [place] [address] PCP - General Family Medicine 10/13/13 09/22/18 documented as of this encounter
--- OUTSIDE RECORDS SUMMARY | 2024-08-23 12:11 | XMS_ITS | Encounter Summary ---
Author Organization [facility] Address [address] [place] [id number] Care Team Providers Care Latin American Studies Director Name Role Phone Haile Singh MD Primary Care Provider [phone] Reason for Visit * Reason Onset Date Comments Medication Refill 08/08/2014 xanax 0.5 mg o ne tid prn # 75 vit d 50,000 one every week Encounter Details Date Type Department Care Team (Late st Contact Info) Description 08/08/2014 Refill [facility] [address] [place] [phone] Haile Singh MD [address] [place] [phone] Medication Refill (xanax 0.5 mg one tid prn # 75 vit d 50,000 one every week) Social History Tobacco Use Types Packs/Day Years Used Date Smoking Tobacco: Every Day Cigarettes Alcohol Use Standard Drinks/Week Comments Yes 0 (1 standard drink = 0.6 oz pur e alcohol) 2 half pints today Sex and Gender Information Value Date Recorded Sex Assigned at Not on file Gender Identity Not on file Sexual Orientation Not on file documented as of this encounter Plan of Treatment Not on file documented as of this encounter Visit Diagnoses Not on filedocumented in this encounter Care Teams Latin American Studies Director Relationship Specialty Start Date End Date Haile Singh MD [address] [place] [phone] PCP - General Family Medicine 10/13/13 09/22/18 documented as of this encounter
--- OUTSIDE RECORDS SUMMARY | 2024-08-23 12:11 | XMS_ITS | Encounter Summary ---
Author Organization [facility] Address [address] [place] [id number] Care Team Providers Care Coal Inspector Name Role Phone Haile Singh MD Primary Care Provider [phone] Reason for Visit * Reason Onset Date Comments Medication Refill 08/27/2014 meds Encounter Details Date Type Department Care Team (Late st Contact Info) Description 08/27/2014 Refill [facility] [address] [place] [phone] Haile Singh MD [facility] [place] [address] Medication Refill (meds) Social History Tobacco Use Types Packs/Day Years [...] Telephone Encounter - Zuleika Joseph CNA - 08/27/2014 5:04 PM ENGINEER AND GEOLOGIST Pt said he had seen Hola and got a script for the Xanax on 08/09/14 but he didn't give him any refill on it. Pt said it due around 09-03-14. Pt is needing refills called into [facility]. NEER AND GEOLOGIST documented in this encounter Plan of Treatment Not on file documented as of this encounter Visit Diagnoses Not on filedocumented in this encounter Care Teams Coal Inspector Relationship Specialty Start Date End Date Haile Singh MD [address] [place] [phone] PCP - General Family Medicine 10/13/13 09/22/18 documented as of this encounter
--- OUTSIDE RECORDS SUMMARY | 2024-08-23 12:12 | XMS_ITS | Encounter Summary ---
Author Organization [facility] Address [address] [place] [id number] Care Team Providers Care Ibm [employer] Commerce Consultant Name Role Phone Unavailable Primary Care Provider Unavailabl e Reason for Visit * Reason Comments Anxiety Encounter Details Date Type Department Care Team (Late st Contact Info) Description 11/16/2009 12:55 PM WINDER TENDER - 11/16/2009 3:07 PM WINDER TENDER Emergency [facility] Emergency Department [address] [place] [phone] Discharge Disposition: Home Social History Tobacco Use Types Packs/Day Years Used Date Smoking Tobacco: Never Assessed Sex and Gender Information Value Date Recorded Sex Assigned at Not on file Gender Identity Not on file Sexual Orientation Not on file documented as of this encounter Last Filed Vital Signs Vital Sign Reading Time Taken Comments Blood Pressure 108/78 11/16/2009 1:02 PM WINDER TENDER Pulse 76 11/16/2009 1:02 PM WINDER TENDER Temperature 36.2 ??C (97.2 ??F) 11/16/2009 1:02 PM CS T Respiratory Rate 20 11/16/2009 1:02 PM WINDER TENDER Oxygen Saturation 98% 11/16/2009 1:02 PM WINDER TENDER Inhaled Oxygen Concentration - - Weight 77.1 kg (170 lb) 11/16/2009 1:02 PM WINDER TENDER Height 177.8 cm (5' 10 ) 11/16/2009 1:02 PM WINDER TENDER Body Mass Index 24.39 11/16/2009 1:02 PM WINDER TENDER documented in this encounter Miscellaneous Notes * Miscellaneous - Physician Glover MD - 11/16/2009 12:55 PM CST documented in this encounter Plan of Treatment Not on file documented as of this encounter Visit Diagnoses Not on filedocumented in this encounter
--- OUTSIDE RECORDS SUMMARY | 2024-08-23 12:12 | XMS_ITS | Encounter Summary ---
Author Organization [facility] Address [address] [place] [id number] Care Team Providers Care Cork Molder Name Role Phone Haile Singh MD Primary Care Provider Reason for Visit * Reason Comments Fall Head Injury Facial Injury Drug Overdose Encounter Details Date Type Department Care Team (Late st Contact Info) Description 10/13/2013 10:55 PM [employer] SALES REPRESENTATIVE - 10/14/2013 2:23 AM [facility] Emergency Department [facility] [place] [address] Ayush Louise MD [address] [place] [id number] Fall (Primary Dx) Discharge Disposition: Home Social History Tobacco Use Types Packs/Day Years Used Date Smoking Tobacco: Every Day Cigarettes Alcohol Use Standard Drinks/Week Comments No 0 (1 standard drink = 0.6 oz pur e alcohol) Sex and Gender Information Value Date Recorded Sex Assigned at Not on file Gender Identity Not on file Sexual Orientation Not on file documented as of this encounter Last Filed Vital Signs Vital Sign Reading Time Taken Comments Blood Pressure 130/89 10/14/2013 1:15 AM [employer] SALES REPRESENTATIVE Pulse 100 10/14/2013 1:15 AM [employer] SALES REPRESENTATIVE Temperature 36.2 ??C (97.2 ??F) 10/13/2013 10:51 PM C Respiratory Rate 20 10/14/2013 1:15 AM [employer] SALES REPRESENTATIVE Oxygen Saturation 98% 10/14/2013 1:15 AM [employer] SALES REPRESENTATIVE Inhaled Oxygen Concentration - - Weight 72.6 kg (160 lb) 10/13/2013 10:51 PM [employer] SALES REPRESENTATIVE Height 180.3 cm (5' 11 ) 10/13/2013 10:51 PM [employer] SALES REPRESENTATIVE Body Mass Index 22.32 10/13/2013 10:51 PM [employer] SALES REPRESENTATIVE documented in this encounter Discharge Instructions * Discharge Instructions* Ayush Louise MD - 10/14/2013 1:57 AM [employer] SALES REPRESENTATIVE Rest. Ice. Suture removal in 7 days, staple removal in 10 days. Follow up with primary physician this morning. Return if symptoms worsen or change. [employer] SALES REPRESENTATIVE documented in this encounter Procedure Notes * Ayush Louise MD - 10/13/2013 10:55 PM CSTAssociated Order(s): EKG (SCANNED) [employer] SALES REPRESENTATIVE documented in this encounter ED Notes * Yury Trotter RN - 10/14/2013 2:22 AM CST Pt discharged with father. Pt given written and verbal discharge instructions. Pt verbalized understanding of these instructions. Pt ambulatory to lobby with father. [employer] SALES REPRESENTATIVE * Ayush Louise MD - 10/14/2013 2:00 AM CST CHIEF COMPLAINT Chief Complaint Patient presents with ??? Fall ??? Head Injury ??? Facial Injury ??? Drug Overdose [facility] John Veliz is a 43 y.o. male who presents with a complaint of a fall. The patient apparently fell on some steps tonight. The patient denied loss of consciousness. He states that he has been drinking alcohol. He initially denied taking Xanax, later admitted to taking Xanax. A family member at bedside believes he took 6 Xanax tonight. The patient denied suicidal or homicidal ideation. A familymember at bedside did not have any concern for suicidal attempt. The patient was unsure of his lasttetanus immunization. He denied any pain. He denied headache, neck pain, or facial pain. He states he has had a little bit of a cough, however related this to smoking. REVIEW OF SYSTEMS See HPI for further details. Review of systems otherwise negative. The patient denied fever, headache, neck pain, vomiting, diarrhea. PAST MEDICAL HISTORY Past Medical History Diagnosis Date ??? Anxiety ??? Depression (disease) FAMILY HISTORY Family History Problem Relation Age of Onset ??? Depression Mother ??? Depression Father ??? Alcohol Abuse Paternal Uncle SOCIAL HISTORY History Social History ??? Marital Status: Single Spouse Name: N/A Number of Children: N/A ??? Years of Education: N/A Social History Main Topics ??? Smoking status: Current Every Day Smoker -- 1.0 packs/day ??? Smokeless tobacco: Not on file ??? Alcohol Use: No ??? Drug Use: No ??? Sexually Active: Other Topics Concern ??? Not on file Social History Narrative ??? No narrative on file SURGICAL HISTORY Past Surgical History Procedure Date ??? Shoulder surgery 2001 left CURRENT MEDICATIONS No current outpatient prescriptions on file. ALLERGIES Allergies Allergen Reactions ??? Codeine Itching Pt states he feels hot, itchy, and he vomits. PHYSICAL EXAM VITAL SIGNS: BP 130/89 Pulse 100 Temp 97.2 ??F (36.2 ??C) (Oral) Resp 20 Ht 5' 11 Wt 72.576 kg (160 lb) BMI 22.32 kg/m2 SpO2 98% Constitutional: well developed, well nourished, no acute distress, non-toxic appearance. Smells of alcohol. HENT: normocephalic, 2 cm laceration to the right mid maxillary cheek, mild surrounding edema and ecchymoses, 1 cm scalp laceration to the right frontal region, no step off deformity about the scalp,forehead, midface, or mandibular regions, bilateral external ears normal, oropharynx moist, no oralexudates, nose normal without noted nasal septal hematoma. Eyes: PERRLA, EOMI, conjunctiva normal, no discharge. No evidence of any extraocular eye movements entrapment. Neck: normal range of motion, no tenderness to palpation, no meningeal irritation. Lymphatic: no lymphadenopathy noted. Cardiovascular: normal heart rate, normal rhythm, no appreciated murmurs, no rubs, no gallops. Thorax & Lungs: normal breath sounds, no respiratory distress, no stridor, no chest tenderness to palpation. Skin: warm, dry, no erythema, no rash. Back: no tenderness to palpation, no CVA tenderness. Abdomen: bowel sounds normal, soft, no palpable masses, no pulsatile masses, no pain on palpation. Extremities: intact radial pulses, no edema, no cyanosis. Musculoskeletal: good range of motion in all major joints, no tenderness to palpation or acute major deformities noted. Neurologic: alert, normal motor function, normal sensory function, no focal deficits noted. Appearsintoxicated with slight slurring of speech. Psychiatric: affect normal, judgment normal, mood normal. EKG Normal sinus rhythm, rate of 97, normal axis, diffuse nonspecific ST changes. RADIOLOGY/PROCEDURES CT head: IMPRESSION: THERE IS NO EVIDENCE OF INTRACRANIAL HEMORRHAGE CT maxillofacial: IMPRESSION: 1. THERE IS RIGHT PERIORBITAL SOFT TISSUE SWELLING DEMONSTRATED. 2. NO ORBITAL FRACTURE IS IDENTIFIED. 3. NO FACIAL BONE FRACTURE IS IDENTIFIED. 4. THERE IS SIGNIFICANT NASAL SEPTAL DEVIATION DEMONSTRATED CT cervical spine: IMPRESSION: THERE IS NO EVIDENCE OF FRACTURE OR DISLOCATION Laceration Repair Procedure Note Indication: Laceration Procedure: The patient was placed in the appropriate position and anesthesia around the laceration was obtained by infiltration using 1% Lidocaine with epinephrine. The area was then cleansed with betadine and draped in a sterile fashion. The wound was explored for foreign body, none was found. Thelaceration was closed with jhoana. There were no additional lacerations requiring repair. The wound area was then dressed with bacitracin. Total repaired wound length: 1 cm. Other Items: None The patient tolerated the procedure well. Complications: None Laceration Repair Procedure Note Indication: Laceration Procedure: The patient was placed in the appropriate position and anesthesia around the laceration was obtained by infiltration using 1% Lidocaine with epinephrine. The area was then cleansed with betadine and draped in a sterile fashion. The wound was explored for foreign body, none was found. Thelaceration was closed with 6-0 Ethilon using interrupted sutures. There were no additional lacerations requiring repair. The wound area was then dressed with bacitracin. Total repaired wound length: 2 cm. Other Items: None The patient tolerated the procedure well. Complications: None COURSE & MEDICAL DECISION MAKING Pertinent Labs & Imaging studies reviewed. (See chart for details) Recent Results (from the past 24 hour(s)) ACETAMINOPHEN LEVEL Collection Time 10/13/13 11:57 PM Component Value Range Acetaminophen, S <4 <10 UG/ML CBC W AUTO DIFF Collection Time 10/13/13 11:57 PM Component Value Range WBC 9.7 4.1 - 10.9 THOUSAND RBC 5.07 3.35 - 5.50 MILLION Hemoglobin 16.5 12.9 - 16.6 g/dL Hematocrit 48.4 (*) 38.0 - 48.0 % MCV 95.5 (*) 81.0 - 95.0 fL MCH 32.5 27.0 - 33.0 pg MCHC 34.1 33.0 - 37.0 g/dL RDWCV 13.6 11.5 - 14.5 % RDWSD 47.1 (*) 35.0 - 42.0 fL Platelets 292 130 - 400 THOUS MPV 9.6 7.4 - 10.4 FL Differential Type AUTO Neutrophils 81.9 (*) 42.2 - 75.2 % Lymphs 11.7 (*) 20.5 - 51.1 % Monocytes 5.0 1.7 - 9.3 % Eos 0.4 (*) 1.0 - 3.0 % Basos 0.5 0.0 - 2.0 % Neutrophils Absolute 7.9 1.7 - 8.7 Lymphocytes Absolute 1.1 0.8 - 5.6 Monocytes Absolute 0.5 0.1 - 1.0 Eosinophils Absolute 0.0 0.0 - 0.3 Basophils Absolute 0.1 0.0 - 0.2 IMM Gran 0.5 (*) 0.0 - 0.4 % ABS IMM Gran 0.05 (*) 0.00 - 0.04 COMPREHENSIVE METABOLIC PANEL Collection Time 10/13/13 11:57 PM Component Value Range Glucose 118 (*) 70 - 99 MG/DL BUN 13 8 - 23 MG/DL Creatinine 1.1 0.6 - 1.2 MG/DL Sodium 142 136 - 145 MMOL/L Potassium 3.7 3.5 - 5.4 MMOL/L Chloride 108 (*) 98 - 107 MMOL/L CO2 27 20 - 33 MMOL/L Calcium 9.4 8.7 - 10.4 MG/DL Total Protein 7.2 6.0 - 8.2 G/DL Albumin 4.6 3.4 - 4.8 G/DL Albumin/Globulin Ratio 1.8 Bilirubin, Total 0.5 0.3 - 1.2 MG/DL AST 32 0 - 39 U/L Alkaline Phosphatase 83 25 - 100 U/L ALT 26 10 - 40 U/L Est GFR >60 GFR Comment Value: IF PATIENT IS , MULTIPLY RESULT BY 1.21 ANION GAP 11 7 - 14 MMOL/L DRUG SCREEN 7 MEDICAL Collection Time 10/13/13 11:57 PM Component Value Range THC POSITIVE RKD Cocaine Metabolites, Ur NEGATIVE Opiate Screen, Urine NEGATIVE Benzodiazepine Screen, Urine POSITIVE RKD Barbiturate Screen, Urine NEGATIVE Amph/Methamph Screen NEGATIVE PCP Scrn, Ur NEGATIVE Drug Screen Comment: Value: THIS IS A URINE SCREEN. ONLY THOSE DRUGS LISTED ARE BEING TESTED. ALL POSITIVES ARE PRESUMPTIVE (UNCONFIRMED). FALSE POSITIVES AND NEGATIVES CAN OCCUR. USE FOR MEDICAL PURPOSES ONLY. THE ORDERING PHYSICIAN CAN CONTACT THE CHEMISTRY DEP'T ([phone]) WITHIN 1 WEEK OF RECIEPT IF CONFIRMATION IS NEEDED. THC NEGATIVE < 50 ng/ml COCAINE NEGATIVE <300NG/ML OPIATE NEGATIVE <300NG/ML INGESTION OF 3 POPPY SEED BAGELS HAS BEEN SHOWN TO CAUSE A POSITIVE OPIATE. BENZO NEGATIVE <200NG/ML JOSEF NEGATIVE <200NG/ML AMPHET NEGATIVE <1000NG/ML PCP NEGATIVE <25NG/ML URINALYSIS WITH MICROSCOPIC CULTURE IF INDICATED Collection Time 10/13/13 11:57 PM Component Value Range Glucose, UA NEGATIVE NEGATIVE MG/DL Protein, UA NEGATIVE NEGATIVE MG/DL Bilirubin, UA NEGATIVE NEGATIVE MG/DL Urobilinogen, UA <2.0 <2.0 MG/DL pH, UA 5.0 <7.0 Blood, UA NEGATIVE NEGATIVE MG/DL Ketones, UA NEGATIVE NEGATIVE MG/DL Nitrite, UA NEGATIVE NEGATIVE Leukocytes Esterase UA NEGATIVE NEGATIVE JANY/UL UR Appearance CLEAR CLEAR Specific Sledge, UA 1.002 <1.036 Color, UA COLORLESS (*) YELLOW Site CCMS Urine Culture Comment NOT INDICATED WBC, UA NONE SEEN <5 /HPF Mucus, UA RARE (*) NORMAL /LPF Hyaline Casts, UA 3 (*) <3 /LPF ALCOHOL SERUM MEDICAL Collection Time 10/13/13 11:57 PM Component Value Range Alcohol, Serum 227 (*) <10 MG/DL SALICYLATE LEVEL Collection Time 10/13/13 11:57 PM Component Value Range Salicylate Lvl <3 <20 MG/DL FINAL IMPRESSION Post fall examination Simple laceration repair, 2 cm, face Simple laceration repair, 1 cm, scalp Face contusion Alcohol intoxication Polysubstance abuse The patient presented after a fall, having an obvious trauma to the face and scalp. They appeared to be intoxicated. The patient underwent diffuse CT imaging which has been negative or unremarkable. He underwent laboratory testing revealing an elevated alcohol level, otherwise negative or unremarkable. He had suture repair of his face and scalp without difficulty. I had a discussion regarding local wound care. Sutures out in 7 days, scalp jhoana out in 10 days. The patient and family felt comfortable with this treatment pattern. The patient was asked to follow up with their primary care physician this morning. They were asked to return to the ER if symptoms worsened or changed. They were discharged in stable condition. Ayush Louise M.D. [facility] Emergency Department This pedicurist was electronically signed. It was dictated by use of voice recognition software and electronically transcribed. The pedicurist may contain errors not detected in proofreading. Ayush Louise MD 10/14/13 0304 [employer] SALES REPRESENTATIVE documented in this encounter Miscellaneous Notes * Triage Assessment - Yury Trotter RN - 10/13/2013 11:23 PM CST Pt reports falling down tonight 15 steps. Pt has laceration right below right eye and and on the top of the right head. Pt reports taking unknown amount of xanax earlier this evening. Pt denies drinking anything tonight. Pts family reports the pt drank vodka this evening. [employer] SALES REPRESENTATIVE * Plan of Care - Ayush Louise MD - 10/13/2013 10:55 PM CST [employer] SALES REPRESENTATIVE * Miscellaneous - Ayush Louise MD - 10/13/2013 10:55 PM CST [employer] SALES REPRESENTATIVE documented in this encounter Plan of Treatment Not on file documented as of this encounter Procedures Procedure Name Priority Date/Time Associated Diagnosis Comments ALCOHOL SERUM MEDICAL STAT 10/13/2013 11:57 PM [employer] SALES REPRESENTATIVE DRUG SCREEN MEDICAL STAT 10/13/2013 1 1:57 PM [employer] SALES REPRESENTATIVE URINALYSIS WITH REFLEX TO CULTURE, IF INDICATED STAT 10/13/2013 11:57 PM [employer] SALES REPRESENTATIVE CBC W AUTO DIFF STAT 10/13/2013 11:57 PM [employer] SALES REPRESENTATIVE ACETAMINOPHEN LEVEL STAT 10/13/2013 1 1:57 PM [employer] SALES REPRESENTATIVE SALICYLATE LEVEL STAT 10/13/2013 11:5 7 PM [employer] SALES REPRESENTATIVE COMPREHENSIVE METABOLIC PANEL STAT 10/13/2013 11:57 PM H[employer] SALES REPRESENTATIVE CT MAXILLOFACIAL WO CONTRAST STAT 10/13/2013 11:36 PM [employer] SALES REPRESENTATIVE CT CERVICAL SPINE WO CONTRAST STAT 10/13/2013 11:36 PM [employer] SALES REPRESENTATIVE CT HEAD WO CONTRAST STAT 10/13/2013 1 1:35 PM [employer] SALES REPRESENTATIVE EKG STAT 10/13/2013 11:15 PM [employer] SALES REPRESENTATIVE EKG (SCANNED) 10/13/2013 10:55 PM [employer] SALES REPRESENTATIVE documented in this encounter Results * SALICYLATE LEVEL (10/13/2013 11:57 PM H[employer] SALES REPRESENTATIVE) Salicylate Level <3 <20 MG/DL SUNQUEST Blood (BLOOD) 10/13/2013 11: 57 PM [employer] SALES REPRESENTATIVE 10/14/2013 12:05 AM [employer] SALES REPRESENTATIVE Ayush Louise MD CHEMISTRY ORDERABLES [facility]QUEST * (ABNORMAL) ALCOHOL SERUM MEDICAL (10/13/2013 11:57 PM H[employer] SALES REPRESENTATIVE) Alcohol Serum 227(H) <10 MG/DL [facility] Comment:NORMAL: <10 MG/DL 80 MG/DL = 0.08 VOL% Blood (BLOOD) 10/13/2013 11: 57 PM [employer] SALES REPRESENTATIVE 10/14/2013 12:05 AM [employer] SALES REPRESENTATIVE Ayush Louise MD CHEMISTRY ORDERABLES SUNQUEST * (ABNORMAL) URINALYSIS WITH MICROSCOPIC CULTURE IF INDICATED (10/13/2013 11:57 PM H[employer] SALES REPRESENTATIVE) Glucose UA NEGATIVE NEGATIVE MG/DL SUNQUEST Protein UA NEGATIVE NEGATIVE MG/DL SUNQUEST Bilirubin UA NEGATIVE NEGATIVE MG/DL [facility] Urobilinogen UA <2.0 <2.0 MG/DL SUNQUEST pH UA 5.0 <7.0 SUNQUEST Blood UA NEGATIVE NEGATIVE MG/DL SUNQUEST Ketones UA NEGATIVE NEGATIVE MG/DL SUNQUEST Nitrite UA NEGATIVE NEGATIVE [facility]QUEST Leukocyte Esterase UA NEGATIVE NEGATIVE JANY/UL SUNQUEST UR Appearance CLEAR CLEAR SUNQUEST Specific Sledge UA 1.002 <1.036 SUNQUEST Color COLORLESS(A) YELLOW SUNQUEST Site CCMS SUNQUEST Comment, Urine Culture NOT INDICATED [facility] WBC Urine NONE SEEN <5 /HPF [facility] Mucus RARE(A) NORMAL /LPF [facility] Hyaline Casts 3(H) <3 /LPF SUNQUEST Urine (URINE,CLEAN CATCH (CCMS)) 10/13/2013 11:57 PM [employer] SALES REPRESENTATIVE 10/14/2013 12:33 AM H[employer] SALES REPRESENTATIVE Ayush Louise MD URINE ORDERABLES Performing Organization Address City/[facility] Co de Phone Number SUNQUEST * DRUG SCREEN 7 MEDICAL (10/13/2013 11:57 PM H[employer]FTS SALES REPRESENTATIVE) THC POSITIVE RKD SUNQUEST Cocaine Metabolites Urine NEGATIVE SUNQUEST Opiate Screen, Urine NEGATIVE SUNQUEST Benzodiazepine Screen, Urine POSITIVE RKD SUNQUEST Barbiturate Screen, Urine NEGATIVE SUNQUEST Amphetamine/Metha mph Screen, Urine NEGATIVE SUNQUEST Phencyclidine Screen Urine NEGATIVE [facility]QUEST Drug Screen Comment: THIS IS A URINE SCREEN. ONLY THOSE DRUGS LISTED ARE BEING TESTED. ALL POSITIVES ARE PRESUMPTIVE (UNCONFIRMED). FALSE POSITIVES AND NEGATIVES CAN OCCUR. USE FOR MEDICAL PURPOSES ONLY. THE ORDERING PHYSICIAN CAN CONTACT THE CHEMISTRY DEP'T ([phone]) WITHIN 1 WEEK OF RECIEPT IF CONFIRMATION IS NEEDED. THC NEGATIVE < 50 ng/ml COCAINE NEGATIVE <300NG/ML OPIATE NEGATIVE <300NG/ML INGESTION OF 3 POPPY SEED ??BAGELS HAS BEEN SHOWN TO CAUSE A POSITIVE OPIATE. BENZO NEGATIVE ?? <200NG/ML JOSEF NEGATIVE ?? <200NG/ML AMPHET NEGATIVE <1000NG/ML PCP NEGATIVE ? <25NG/ML SUNQUEST Urine (URINE,CLEAN CATCH (CCMS)) 10/13/2013 11:57 PM [employer] SALES REPRESENTATIVE 10/14/2013 12:33 AM H[employer] SALES REPRESENTATIVE Ayush Louise MD URINE ORDERABLES Performing Organization Address [facility] Co de Phone Number SUNQUEST * (ABNORMAL) COMPREHENSIVE METABOLIC PANEL (10/13/2013 11:57 PM [employer] SALES REPRESENTATIVE) Glucose 118(H) 70 - 99 MG/DL SUNQUEST Blood Urea Nitrogen 13 8 - 23 MG/DL SUNQUEST Creatinine 1.1 0.6 - 1.2 MG/DL SUNQUEST Sodium 142 136 - 145 MMOL/L SUNQUEST Potassium 3.7 3.5 - 5.4 MMOL/L SUNQUEST Chloride 108(H) 98 - 107 MMOL/L SUNQUEST Co2 27 20 - 33 MMOL/L SUNQUEST Calcium 9.4 8.7 - 10.4 MG/DL SUNQUEST Protein Total 7.2 6.0 - 8.2 G/DL SUNQUEST Albumin 4.6 3.4 - 4.8 G/DL SUNQUEST A/G Ratio 1.8 SUNQUEST Bilirubin, Total 0.5 0.3 - 1.2 MG/DL SUNQUEST AST(SGOT) 32 0 - 39 U/L SUNQUEST Alkaline Phosphatase 83 25 - 100 U/L SUNQUEST Alt (SGPT) 26 10 - 40 U/L SUNQUEST Est GFR >60 ML/MIN/1. 73sq.m SUNQUEST GFR Comment IF PATIENT IS , MULTIPLY RESULT BY 1.21 SUNQUEST Anion Gap 11 7 - 14 MMOL/L SUNQUEST Blood 10/13/2013 11:5 7 PM [employer] SALES REPRESENTATIVE 10/14/2013 12:05 AM [employer] SALES REPRESENTATIVE Ayush Louise MD CHEMISTRY ORDERABLES Performing Organization Address City/[facility]/ZIP Co de Phone Number SUNQUEST * (ABNORMAL) CBC W AUTO DIFF (10/13/2013 11:57 PM H[employer] SALES REPRESENTATIVE) White Blood Cell Count 9.7 4.1 - 10.9 THOUSAND SUNQUEST Red Blood Cell Count 5.07 3.35 - 5.50 MILLION SUNQUEST Hemoglobin 16.5 12.9 - 16.6 g/dL SUNQUEST Hematocrit 48.4(H) 38.0 - 48.0 % SUNQUEST Mean Corpuscular Volume 95.5(H) 81.0 - 95.0 fL SUNQUEST Mean Corpuscular Hemoglobin 32.5 27.0 - 33.0 pg SUNQUEST Mean Corpuscular Hemoglobin Conc 34.1 33.0 - 37.0 g/dL SUNQUEST Rdwcv 13.6 11.5 - 14.5 % SUNQUEST Rdwsd 47.1(H) 35.0 - 42.0 fL SUNQUEST Platelet Count 292 130 - 400 THOUS SUNQUEST Mean Platelet Volume 9.6 7.4 - 10.4 FL SUNQUEST Differential Type AUTO SUNQUEST Neutrophils 81.9(H) 42.2 - 75.2 % SUNQUEST Lymphs 11.7(L) 20.5 - 51.1 % SUNQUEST Monocytes 5.0 1.7 - 9.3 % SUNQUEST Eos 0.4(L) 1.0 - 3.0 % SUNQUEST Basos 0.5 0.0 - 2.0 % SUNQUEST Neutrophils Absolute Count 7.9 1.7 - 8.7 SUNQUEST Lymphocytes Absolute Count 1.1 0.8 - 5.6 SUNQUEST Monocytes Absolute Count 0.5 0.1 - 1.0 SUNQUEST Eosinophils Absolute Count 0.0 0.0 - 0.3 SUNQUEST Basophils Absolute Count 0.1 0.0 - 0.2 SUNQUEST Imm Gran 0.5(H) 0.0 - 0.4 % SUNQUEST Abs Imm Gran 0.05(H) 0.00 - 0.04 SUNQUEST Blood 10/13/2013 11:5 7 PM [employer] SALES REPRESENTATIVE 10/14/2013 12:05 AM [employer] SALES REPRESENTATIVE Ayush Louise MD HEMATOLOGY ORDERABLE S SUNQUEST * ACETAMINOPHEN LEVEL (10/13/2013 11:57 PM H[employer] SALES REPRESENTATIVE) Acetaminophen, S <4 <10 UG/ML SUNQUEST Comment: TOXICITY UNLIKELY IF INGESTED LESS THAN 24 HOURS. TOXICITY CANNOT BE DETERMINED FROM A SINGLE SAMPLE LESS THAN 4 HOURS POST INGESTION. Blood (BLOOD) 10/13/2013 11: 57 PM [employer] SALES REPRESENTATIVE 10/14/2013 12:05 AM H[employer]S SALES REPRESENTATIVE Ayush Louise MD CHEMISTRY ORDERABLES SUNQUEST * CT MAXILLOFACIAL WO CONTRAST (10/13/2013 11:36 PM H[employer] SALES REPRESENTATIVE) Anatomical Region Laterality Modality Computed Tomogra phy 10/13/2013 11:1 3 PM [employer] SALES REPRESENTATIVE Impressions 10/14/2013 12:34 AM H[employer]FTS SALES REPRESENTATIVE IMPRESSION: 1. ?? THERE IS RIGHT PERIORBITAL SOFT TISSUE SWELLING DEMONSTRATED. 2. ?NO ORBITAL FRACTURE IS IDENTIFIED. 3. ?? NO FACIAL BONE FRACTURE IS IDENTIFIED. 4. ?? THERE IS SIGNIFICANT NASAL SEPTAL DEVIATION DEMONSTRATED. Narrative 10/14/2013 12:34 AM HOBBI[employer] CRAFTS SALES REPRESENTATIVE CT OF FACIAL BONE WITHOUT CONTRAST TECHNIQUE: ??Multiple axial images were obtained through the patient's facial bones. Additional sagittal and coronal reconstructions were obtained. FINDINGS: ??No fracture or dislocation is seen. ??There is no evidence of orbital fracture. ?? There is right periorbital soft tissue swelling demonstrated. Procedure Note Festus Angeles MD - 10/14/2013 CT OF FACIAL BONE WITHOUT CONTRAST TECHNIQUE: Multiple axial images were obtained through the patient'sfacial bones. Additional sagittal and coronal reconstructions were obtained. FINDINGS: No fracture or dislocation is seen. There is no evidence oforbital fracture. There is right periorbital soft tissue swelling demonstrated. IMPRESSION: 1. THERE IS RIGHT PERIORBITAL SOFT TISSUE SWELLING DEMONSTRATED. 2. NO ORBITAL FRACTURE IS IDENTIFIED. 3. NO FACIAL BONE FRACTURE IS IDENTIFIED. 4. THERE IS SIGNIFICANT NASAL SEPTAL DEVIATION DEMONSTRATED. Ayush Louise MD [facility] CT ORDERABLE S * CT CERVICAL SPINE WO CONTRAST (10/13/2013 11:36 PM H[employer]FTS SALES REPRESENTATIVE) Anatomical Region Laterality Modality Computed Tomogra phy 10/13/2013 11:1 3 PM H[employer] SALES REPRESENTATIVE Impressions 10/14/2013 12:34 AM H[employer]S SALES REPRESENTATIVE IMPRESSION: THERE IS NO EVIDENCE OF FRACTURE OR DISLOCATION. Narrative 10/14/2013 12:34 AM HOB[employer] CRAFTS SALES REPRESENTATIVE CT OF CERVICAL SPINE WITHOUT CONTRAST TECHNIQUE: ??Multiple axial images were obtained through the cervical spine. ??Additional sagittal and coronal reconstructions were obtained. FINDINGS: ??No acute fracture or dislocation is seen. ??Vertebral alignment is anatomic. Procedure Note Festus Angeles MD - 10/14/2013 CT OF CERVICAL SPINE WITHOUT CONTRAST TECHNIQUE: Multiple axial images were obtained through the cervicalspine. Additional sagittal and coronal reconstructions were obtained. FINDINGS: No acute fracture or dislocation is seen. Vertebral alignmentis anatomic. IMPRESSION: THERE IS NO EVIDENCE OF FRACTURE OR DISLOCATION. Ayush Louise MD [facility] CT ORDERABLE S * CT HEAD WO CONTRAST (10/13/2013 11:35 PM H[employer]S SALES REPRESENTATIVE) Anatomical Region Laterality Modality Computed Tomogra phy 10/13/2013 11:1 3 PM [employer] SALES REPRESENTATIVE Impressions 10/14/2013 12:34 AM H[employer]S SALES REPRESENTATIVE IMPRESSION: THERE IS NO EVIDENCE OF INTRACRANIAL HEMORRHAGE. Narrative 10/14/2013 12:34 AM HOBBI[employer] CRAFTS SALES REPRESENTATIVE CT OF HEAD WITHOUT CONTRAST TECHNIQUE: ??Multiple axial images were obtained through the brain without intravenous contrast. Additional sagittal and coronal reconstructions were obtained. FINDINGS: ??The ventricles and sulci are within normal limits. No hydrocephalus or midline shift is seen. No intracranial hemorrhage or space occupying lesion is demonstrated. Procedure Note Festus Angeles MD - 10/14/2013 CT OF HEAD WITHOUT CONTRAST TECHNIQUE: Multiple axial images were obtained through the brain withoutintravenous contrast. Additional sagittal and coronal reconstructions were obtained. FINDINGS: The ventricles and sulci are within normal limits. Nohydrocephalus or midline shift is seen. No intracranial hemorrhage or space occupying lesion isdemonstrated. IMPRESSION: THERE IS NO EVIDENCE OF INTRACRANIAL HEMORRHAGE. Ayush Louise MD [facility] ORDERABLE S * EKG (10/13/2013 11:15 PM [employer] SALES REPRESENTATIVE) 10/14/2013 1:08 AM [employer] SALES REPRESENTATIVE Narrative RAD/CARD - 10/16/2013 2:40 AM [employer] SALES REPRESENTATIVE Ventricular Rate : 97 ??BPM Atrial Rate : 97 ??BPM P-R Interval : 152 ??ms QRS Duration : 96 ??ms Q-T Interval : 384 ??ms QTC Calculation(Bezet) : 487 ??ms Calculated P Flushing : 76 ??degrees Calculated R Flushing : 81 ??degrees T Flushing : 54 ??degrees Diagnosis : Normal sinus rhythm Prolonged QT Abnormal ECG Read at the Physician's home Procedure Note Vimal Quiñones MD - 10/16/2013 Ventricular Rate : 97 BPM Atrial Rate : 97 BPM P-R Interval : 152 ms QRS Duration : 96 ms Q-T Interval : 384 ms QTC Calculation(Bezet) : 487 ms Calculated P Flushing : 76 degrees Calculated R Flushing : 81 degrees T Flushing : 54 degrees Diagnosis : Normal sinus rhythm Prolonged QT Abnormal ECG Read at the Physician's home Ayush Louise MD ECG ORDERABLES RAD/CARD * EKG (SCANNED) (10/13/2013 10:55 PM [employer] SALES REPRESENTATIVE) Narrative Transcriptions Ayush Louise MD - 10/13/2013 10:55 PM CST Ayush Louise MD TRANSCRIPTIONS documented in this encounter Visit Diagnoses Diagnosis Fall- Primary Unspecified fall documented in this encounter Administered Medications Inactive Administered Medications - up to 3 most recent administrations Medication Order MAR Action Action Date Dose Rate Site 0.9% NaCl infusion 1,000 mL, Intravenous, at 999 mL/hr, ONCE, 1 dose, On Wed10/13/13 at 2325, STAT, One liter bolus then 125 ml/hr please Given 10/14/2013 1:13 AM [employer] SALES REPRESENTATIVE 1,000 mL 999 mL/hr [id number] in (NEOSPORIN) 400-5-5000 ointment 1 Packet 1 packet, Topical, ONCE, 1 dose, On 10/14/13 at 0205, STAT Given 10/14/2013 2:03 AM [employer] SALES REPRESENTATIVE documented in this encounter Active and Recently Administered Medications Times are shown in [employer] SALES REPRESENTATIVE. Scheduled Medication Order 10/12/2013 10/13/2013 10/14/2013 0.9% NaCl infusion (COMPLETED) 1,000 mL, Intravenous, at 999 mL/hr, ONCE, 1 dose, On 10/13/13 at 2325, STAT, One liter bolus then 125 ml/hr please 0113 (Given - Provid er: Yury Trotter RN) [id number] (NEOSPORIN) 400-5-5000 ointment 1 Packet (COMPLETED) 1 packet, Topical, ONCE, 1 dose, On 10/14/13 at 0205, STAT 0203 (Given - Provid er: Ronen Mena RN) documented in this encounter Care Teams Cork Molder Relationship Specialty Start Date End Date Haile Singh MD [address] [place] [id number] PCP - General Family Medicine 10/13/13 09/22/18 documented as of this encounter
--- OUTSIDE RECORDS SUMMARY | 2024-08-23 12:12 | XMS_ITS | Encounter Summary ---
Author Organization [facility] Address [address] [place] [address] Care Team Providers Care Hobbing Machine Operator Name Role Phone Haile Singh MD Primary Care Provider Reason for Visit * Reason Comments Alcohol Intoxication fci clearance Encounter Details Date Type Department Care Team (Late st Contact Info) Description 01/05/2014 4:40 PM CDT - 01/05/2014 7:[address] [facility] Emergency Department [address] [place] [address] Puneet Hdz MD Acute alcoholic intoxication (Primary Dx) Discharge Disposition: Half-Way, Fpc Social History Tobacco Use Types Packs/Day Years [...] Sign Reading Time Taken Comments Blood Pressure 100/64 01/05/2014 7:30 PM CDT Pulse 83 01/05/2014 7:30 PM CDT Temperature 36.3 ??C (97.3 ??F) 01/05/2014 4:37 PM CD T Respiratory Rate 18 01/05/2014 7:30 PM CDT Oxygen Saturation 96% 01/05/2014 7:30 PM CDT Inhaled Oxygen Concentration - - Weight 72.6 kg (160 lb) 01/05/2014 4:37 PM CDT Height 180.3 cm (5' 11 ) 01/05/2014 4:37 PM CDT Body Mass Index 22.32 01/05/2014 4:37 PM CDT documented in this encounter Discharge Instructions * Discharge Instructions* Puneet Hdz MD - 01/05/2014 6:28 PM CDT Return immediately to emergency for any new or worsening symptoms. documented in this encounter ED Notes * Leann Aaron RN - 01/05/2014 7:31 PM CDT Pt given paper scrubs because his clothes were soaked in urine. He was discharge to [facility]. Left unit ambulatory with this rn and epd. Pt's gait steady. * Leann Aaron RN - 01/05/2014 5:39 PM CDT Pt resting quietly on cart. Eyes closed. Respirations even and relaxed. EPD at bedside. * Puneet Hdz MD - 01/05/2014 4:46 PM CDT This oracle consultant was electronically signed. It was dictated by use of voice recognition software and electronically transcribed. The oracle consultant may contain errors not detected in proofreading. CHIEF COMPLAINT Chief Complaint Patient presents with ??? Alcohol Intoxication fci clearance HPI John Veliz is a 43 y.o. male who presents with Half-Way clearance. Patient brought in by police for a welfare check. He was on the street seemed intoxicated. Breathalyzer positive. Excessive confusion and inability to walk unassisted. Patient has no complaints. Initially he tells me he was drinking alcohol, then he reports he was not. Chart review shows history of taking excessive amounts of Xanax. REVIEW OF SYSTEMS No history of head injury. No vomiting. No respiratory distress. No change in bowel or bladder function. No lacerations. All other systems are reviewed and negative. PAST MEDICAL HISTORY Past Medical History Diagnosis [...] Smoker -- 1.0 packs/day ??? Smokeless tobacco: None ??? Alcohol Use: Yes Comment: 2 half pints today ??? Drug Use: No ??? Sexually Active: Other Topics Concern ??? None Social History Narrative ??? None SURGICAL HISTORY Past Surgical History Procedure Date ??? Shoulder surgery 2001 left CURRENT MEDICATIONS No current outpatient prescriptions on file. ALLERGIES Allergies Allergen Reactions ??? Codeine Itching Pt states he feels hot, itchy, and he vomits. PHYSICAL EXAM VITAL SIGNS: ED Triage Vitals Temp Temp src Pulse Resp BP SpO2 01/05/14 1637 01/05/14 1637 01/05/14 1637 01/05/14 1637 01/05/14 1637 01/05/14 1637 -- 97.3 ??F (36.3 ??C) Oral 125 16 126/83 mmHg 95 % BP 126/83 Pulse 125 Temp 97.3 ??F (36.3 ??C) (Oral) Resp 16 Ht 5' 11 Wt 72.576 kg (160 lb) BMI 22.33 kg/m2 SpO2 95% General: Awake, alert, and without physiologic distress present. Head: Mucous membranes moist and oropharynx clear. Eyes: No jaundice present. Neck: Supple. No lymphadenopathy. Trachea midline. Cardiovascular: Regular and without murmurs. Thorax & Lungs: No respiratory distress. Equal breath sounds. Breath sounds clear. Abdomen: Soft, without peritonitis or mass. Extremities: Intact distal pulses. No edema. Musculoskeletal: No major deformities noted. Skin: Warm. No rash. Neurologic: awake, interactive, emotional lability and slurred speech present, ataxic. Unable to give location or situational history. Knows name only. Moves left and right side of body with symmetry. COURSE & MEDICAL DECISION MAKING Recent Results (from the past 24 hour(s)) URINALYSIS WITH MICROSCOPIC CULTURE IF INDICATED Collection Time 01/05/14 4:46 PM Component Value Range Glucose, UA NEGATIVE NEGATIVE MG/DL Protein, UA NEGATIVE NEGATIVE MG/DL Bilirubin, UA NEGATIVE NEGATIVE MG/DL Urobilinogen, UA <2.0 <2 MG/DL pH, UA 6.0 <7.0 Blood, UA SMALL (*) NEGATIVE MG/DL Ketones, UA NEGATIVE NEGATIVE MG/DL Nitrite, UA NEGATIVE NEGATIVE Leukocytes Esterase UA NEGATIVE NEGATIVE JANY/UL UR Appearance CLEAR CLEAR Specific Harris, UA 1.002 <1.036 Color, UA COLORLESS (*) YELLOW Site CCMS Urine Culture Comment NOT INDICATED WBC, UA NONE SEEN <5 /HPF ALCOHOL SERUM MEDICAL Collection Time 01/05/14 4:51 PM Component Value Range Alcohol, Serum 392 (*) <10 MG/DL CBC W AUTO DIFF Collection Time 01/05/14 4:51 PM Component Value Range WBC 8.9 4.1 - 10.9 THOUS RBC 4.73 3.35 - 5.50 MIL Hemoglobin 15.3 12.9 - 16.6 GM/DL Hematocrit 44.2 38.0 - 48.0 % MCV 93.4 81.0 - 95.0 FL MCH 32.3 27.0 - 33.0 PG MCHC 34.6 33.0 - 37.0 G/DL RDWCV 13.5 11.5 - 14.5 % RDWSD 46.8 (*) 35.0 - 42.0 FL Platelets 268 130 - 400 THOUS MPV 9.4 7.4 - 10.4 FL nRBC 0.0 0 /100 WBC'S ABS NRBC 0.0 0.0 Differential Type AUTO Neutrophils 68.0 42.2 - 75.2 % Lymphs 22.0 20.5 - 51.1 % Monocytes 8.2 1.7 - 9.3 % Eos 0.7 (*) 1.0 - 3.0 % Basos 0.5 0.0 - 2.0 % IMM Gran 0.6 (*) 0.0 - 0.4 % Neutrophils Absolute 6.1 1.7 - 8.7 Lymphocytes Absolute 2.0 0.8 - 5.6 Monocytes Absolute 0.7 0.1 - 1.0 Eosinophils Absolute 0.1 0.0 - 0.3 Basophils Absolute 0.0 0.0 - 0.2 ABS IMM Gran 0.05 (*) 0.00 - 0.04 COMPREHENSIVE METABOLIC PANEL Collection Time 01/05/14 4:51 PM Component Value Range Glucose 123 (*) 70 - 99 MG/DL BUN 14 8 - 23 MG/DL Creatinine 1.0 0.6 - 1.2 MG/DL Sodium 143 136 - 145 MMOL/L Potassium 3.6 3.5 - 5.4 MMOL/L Chloride 107 98 - 107 MMOL/L CO2 25 20 - 33 MMOL/L Calcium 9.2 8.7 - 10.4 MG/DL Total Protein 7.6 6.0 - 8.2 G/DL Albumin 4.7 3.4 - 4.8 G/DL Albumin/Globulin Ratio 1.6 Bilirubin, Total 0.4 0.3 - 1.2 MG/DL AST 21 0 - 39 U/L Alkaline Phosphatase 86 25 - 100 U/L ALT 24 10 - 40 U/L Est GFR >60 >60 ML/MIN/1.73sq.m GFR Comment Value: IF PATIENT IS , MULTIPLY RESULT BY 1.21 ANION GAP 15 (*) 7 - 14 MMOL/L DRUG SCREEN 7 MEDICAL Collection Time 01/05/14 4:51 PM Component Value Range THC POSITIVE Cocaine Metabolites, Ur NEGATIVE Opiate Screen, Urine NEGATIVE Benzodiazepine Screen, Urine NEGATIVE Barbiturate Screen, Urine NEGATIVE Amph/Methamph Screen NEGATIVE PCP Scrn, Ur NEGATIVE Drug Screen Comment: Value: SEE NOTES THC NEGATIVE < 50 ng/ml COCAINE NEGATIVE <300NG/ML OPIATE NEGATIVE <300NG/ML INGESTION OF 3 POPPY SEED BAGELS HAS BEEN SHOWN TO CAUSE A POSITIVE OPIATE. BENZO NEGATIVE <200NG/ML JOSEF NEGATIVE <200NG/ML AMPHET NEGATIVE <1000NG/ML PCP NEGATIVE <25NG/ML Pertinent Labs, Imaging Studies, and EKG were reviewed as above. I have reviewed the patient's past electronic medical record and have summarized the old records asdocumented above. Patient initially presented with combative agitation and acute intoxication. He was treated emergently with Haldol for his safety and staff safety. He was observed clinically for about 2 hours-clinical course consistent with acute alcohol intoxication. At the time of discharge he was clinically improved able to stand and walk with minimal assistance. I've written a fci clearance form. 38 minutes of time spent in critical care. This is in addition to separately identifiable procedures. FINAL IMPRESSION 1. Acute alcohol intoxication 2. alcoholism PLAN Referrals provided for treatment for substance abuse. Return precautions and need for follow-up where emphasized. The specific discharge treatment plans with detailed recommendations for therapy and follow- up can be reviewed on the discharge paperwork Puneet Hdz MD 01/05/14 1831 documented in this encounter Miscellaneous Notes * Triage Assessment - Leann Aaron RN - 01/05/2014 4:44 PM CDT Pt arrives per EPD for fci clearance. His portable brethalizer result was .26. Pt smells of etoh. He is tearful and his speech is slurred. * Miscellaneous - Puneet Hdz MD - 01/05/2014 4:40 PM CDT documented in this encounter Plan of Treatment Not on file documented as of this encounter Procedures Procedure Name Priority Date/Time Associated Diagnosis Comments ALCOHOL SERUM MEDICAL STAT 01/05/2014 4:51 PM CDT DRUG SCREEN MEDICAL STAT 01/05/2014 4 :51 PM CDT CBC W AUTO DIFF STAT 01/05/2014 4:51 PM CDT COMPREHENSIVE METABOLIC PANEL STAT 01/05/2014 4:51 PM CDT URINALYSIS WITH REFLEX TO CULTURE, IF INDICATED STAT 01/05/2014 4:46 PM CDT documented in this encounter Results * DRUG SCREEN 7 MEDICAL (01/05/2014 4:51 PM CDT) THC POSITIVE SUNQUEST Cocaine Metabolites Urine NEGATIVE SUNQUEST Opiate Screen, Urine NEGATIVE SUNQUEST Benzodiazepine Screen, Urine NEGATIVE SUNQUEST Barbiturate Screen, Urine NEGATIVE SUNQUEST Amphetamine/Metham ph Screen, Urine NEGATIVE SUNQUEST Phencyclidine Screen Urine NEGATIVE SUNQUEST Drug Screen Comment: SEE NOTES THC NEGATIVE < 50 ng/ml COCAINE NEGATIVE <300NG/ML OPIATE NEGATIVE <300NG/ML INGESTION OF 3 POPPY SEED ??BAGELS HAS BEEN SHOWN TO CAUSE A POSITIVE OPIATE. BENZO NEGATIVE ?? <200NG/ML JOSEF NEGATIVE ?? <200NG/ML AMPHET NEGATIVE <1000NG/ML PCP NEGATIVE ? <25NG/ML SUNQUEST Comment: THIS IS A URINE SCREEN. ONLY THOSE DRUGS LISTED ARE BEING TESTED. ALL POSITIVES ARE PRESUMPTIVE (UNCONFIRMED). FALSE POSITIVES AND NEGATIVES CAN OCCUR. USE FOR MEDICAL PURPOSES ONLY. THE ORDERING PHYSICIAN CAN CONTACT THE CHEMISTRY DEP'T ([phone]) WITHIN 1 WEEK OF RECIEPT IF CONFIRMATION IS NEEDED. Urine (URINE,CLEAN CATCH (CCMS)) 01/05/2014 4:51 PM CDT 01/05/2014 4:56 PM CDT Puneet Hdz MD URINE ORDERABLES SUNQUEST * (ABNORMAL) COMPREHENSIVE METABOLIC PANEL (01/05/2014 4:51 PM CDT) Glucose 123(H) 70 - 99 MG/DL SUNQUEST Blood Urea Nitrogen 14 8 - 23 MG/DL SUNQUEST Creatinine 1.0 0.6 - 1.2 MG/DL SUNQUEST Sodium 143 136 - 145 MMOL/L SUNQUEST Potassium 3.6 3.5 - 5.4 MMOL/L SUNQUEST Chloride 107 98 - 107 MMOL/L SUNQUEST Co2 25 20 - 33 MMOL/L SUNQUEST Calcium 9.2 8.7 - 10.4 MG/DL SUNQUEST Protein Total 7.6 6.0 - 8.2 G/DL SUNQUEST Albumin 4.7 3.4 - 4.8 G/DL SUNQUEST A/G Ratio 1.6 SUNQUEST Bilirubin, Total 0.4 0.3 - 1.2 MG/DL SUNQUEST AST(SGOT) 21 0 - 39 U/L SUNQUEST Alkaline Phosphatase 86 25 - 100 U/L SUNQUEST Alt (SGPT) 24 10 - 40 U/L SUNQUEST Est GFR >60 >60 ML/MIN/1. 73sq.m SUNQUEST GFR Comment IF PATIENT IS , MULTIPLY RESULT BY 1.21 SUNQUEST Anion Gap 15(H) 7 - 14 MMOL/L SUNQUEST Blood 01/05/2014 4:51 PM CDT 01/05/2014 4:55 PM CDT Puneet Hdz MD CHEMISTRY ORDERABLES SUNQUEST * (ABNORMAL) CBC W AUTO DIFF (01/05/2014 4:51 PM CDT) White Blood Cell Count 8.9 4.1 - 10.9 THOUS SUNQUEST Red Blood Cell Count 4.73 3.35 - 5.50 MIL SUNQUEST Hemoglobin 15.3 12.9 - 16.6 GM/DL SUNQUEST Hematocrit 44.2 38.0 - 48.0 % SUNQUEST Mean Corpuscular Volume 93.4 81.0 - 95.0 FL SUNQUEST Mean Corpuscular Hemoglobin 32.3 27.0 - 33.0 PG SUNQUEST Mean Corpuscular Hemoglobin Conc 34.6 33.0 - 37.0 G/DL SUNQUEST Rdwcv 13.5 11.5 - 14.5 % SUNQUEST Rdwsd 46.8(H) 35.0 - 42.0 FL SUNQUEST Platelet Count 268 130 - 400 THOUS SUNQUEST Mean Platelet Volume 9.4 7.4 - 10.4 FL SUNQUEST Nucleated Red Blood Cells 0.0 0 /100 WBC'S SUNQUEST Abs NRBC 0.0 0.0 SUNQUEST Differential Type AUTO SUNQUEST Neutrophils 68.0 42.2 - 75.2 % SUNQUEST Lymphs 22.0 20.5 - 51.1 % SUNQUEST Monocytes 8.2 1.7 - 9.3 % SUNQUEST Eos 0.7(L) 1.0 - 3.0 % SUNQUEST Basos 0.5 0.0 - 2.0 % SUNQUEST Imm Gran 0.6(H) 0.0 - 0.4 % SUNQUEST Neutrophils Absolute Count 6.1 1.7 - 8.7 SUNQUEST Lymphocytes Absolute Count 2.0 0.8 - 5.6 SUNQUEST Monocytes Absolute Count 0.7 0.1 - 1.0 SUNQUEST Eosinophils Absolute Count 0.1 0.0 - 0.3 SUNQUEST Basophils Absolute Count 0.0 0.0 - 0.2 SUNQUEST Abs Imm Gran 0.05(H) 0.00 - 0.04 SUNQUEST Blood 01/05/2014 4:51 PM CDT 01/05/2014 4:55 PM CDT Puneet Hdz MD HEMATOLOGY ORDERABLE S Performing Organization Address [facility] Co de Phone Number SUNQUEST * (ABNORMAL) ALCOHOL SERUM MEDICAL (01/05/2014 4:51 PM CDT) Alcohol Serum 392(H) <10 MG/DL SUNQUEST Comment:NORMAL: <10 MG/DL 80 MG/DL = 0.08 VOL% Blood 01/05/2014 4:51 PM CDT 01/05/2014 4:55 PM CDT Puneet Hdz MD CHEMISTRY ORDERABLES Performing Organization Address [facility] de Phone Number SUNQUEST * (ABNORMAL) URINALYSIS WITH MICROSCOPIC CULTURE IF INDICATED (01/05/2014 4:46 PM CDT) Glucose UA NEGATIVE NEGATIVE MG/DL SUNQUEST Protein UA NEGATIVE NEGATIVE MG/DL SUNQUEST Bilirubin UA NEGATIVE NEGATIVE MG/DL SUNQUEST Urobilinogen UA <2.0 <2 MG/DL SUNQUEST pH UA 6.0 <7.0 SUNQUEST Blood UA SMALL(A) NEGATIVE MG/DL SUNQUEST Ketones UA NEGATIVE NEGATIVE MG/DL SUNQUEST Nitrite UA NEGATIVE NEGATIVE SUNQUEST Leukocyte Esterase UA NEGATIVE NEGATIVE JANY/UL SUNQUEST UR Appearance CLEAR CLEAR SUNQUEST Specific Harris UA 1.002 <1.036 SUNQUEST Color COLORLESS(A) YELLOW SUNQUEST Site CCMS SUNQUEST Comment, Urine Culture NOT INDICATED SUNQUEST WBC Urine NONE SEEN <5 /HPF SUNQUEST Urine (URINE,CLEAN CATCH (CCMS)) 01/05/2014 4:46 PM CDT 01/05/2014 4:59 PM CDT Puneet Hdz MD URINE ORDERABLES Performing Organization Address [facility] Co de Phone Number SUNQUEST documented in this encounter Visit Diagnoses Diagnosis Acute alcoholic intoxication (HCC)- Primary Alcohol abuse, unspecified documented in this encounter Administered Medications Inactive Administered Medications - up to 3 most recent administrations Medication Order MAR Action Action Date Dose Rate Site haloperidol lactate (HALDOL) injection 5 mg 5 mg, Intramuscular, ONCE, 1 dose, On Wed01/05/14 at 1700, STAT Given 01/05/2014 5:00 PM CDT 5 mg Right Upper Outer Quadrant documented in this encounter Active and Recently Administered Medications Times are shown in CDT. Scheduled Medication Order 01/03/2014 01/04/2014 01/05/2014 haloperidol lactate (HALDOL) injection 5 mg (COMPLETED) 5 mg, Intramuscular, ONCE, 1 dose, On Wed01/05/14 at 1700, STAT 1700 (Given - Provid er: Leann Aaron RN) documented in this encounter Care Teams Hobbing Machine Operator Relationship Specialty Start Date End Date Haile Singh MD [address] [place] [id number] PCP - General Family Medicine 10/13/13 09/22/18 documented as of this encounter
--- OUTSIDE RECORDS SUMMARY | 2024-08-23 12:12 | XMS_ITS | Encounter Summary ---
Author Organization [facility] Address [address] [place] [address] Care Team Providers Care Cte Teacher Name Role Phone Unavailable Primary Care Provider Unavailabl e Encounter Details Date Type Department Care Team (Late st Contact Info) Description 09/30/2005 Hospital Encounter CONVERSION UNIT César Mccoy MD [address] [place] [id number] Social History Tobacco Use Types Packs/Day Years [...]
--- OUTSIDE RECORDS SUMMARY | 2024-08-23 12:12 | XMS_ITS | Encounter Summary ---
Author Organization [facility] Address [address] [place] [address] Care Team Providers Care Funeral Arrangement Director Name Role Phone Unavailable Primary Care Provider Unavailabl e Reason for Visit * Reason Comments Anxiety Encounter Details Date Type Department Care Team (Late st Contact Info) Description 11/17/2009 2:09 PM CDT - 11/17/2009 5:11 PM CDT Emergency [facility] Emergency Department [address] [place] [phone] Jeremias Lerma MD Anxiety reaction Discharge Disposition: Home Social History Tobacco Use [...] Sign Reading Time Taken Comments Blood Pressure 129/89 11/17/2009 2:05 PM CDT Pulse 76 11/17/2009 2:05 PM CDT Temperature 35.8 ??C (96.5 ??F) 11/17/2009 2:05 PM CD T Respiratory Rate 18 11/17/2009 2:05 PM CDT Oxygen Saturation 99% 11/17/2009 2:05 PM CDT Inhaled Oxygen Concentration - - Weight 72.6 kg (160 lb) 11/17/2009 2:05 PM CDT Height 177.8 cm (5' 10 ) 11/17/2009 2:05 PM CDT Body Mass Index 22.96 11/17/2009 2:05 PM CDT documented in this encounter Discharge Instructions * Discharge Instructions* RueMarleni MSW - 11/17/2009 4:58 PM CDT [place]: Dr. Gomes recommends that John seek outpatient treatment for his depression and anxiety. Recommended agencies: [facility] [phone], [facility] [phone], [facility] [phone], or [facility] [phone]. documented in this encounter Progress Notes * Jeremias Lerma MD - 11/17/2009 2:09 PM CDT documented in this encounter Consult Notes * Marleni Martines MSW - 11/17/2009 4:27 PM CDTAssociated Order(s): IP CONSULT TO CARE TEAM Pt presents to [facility] for anxiety. Pt states he has had a problem with anxiety for quite some time, but that it has worsened over the past 2 months. Pt states he has been diagnosed with depression and has been experiencing some depressed mood. Pt denies any specific trigger to his anxiety. Pt states he is having a minimal amount of financial problems and feels he will be able to catch up, and denies swimming in debt. Pt states a few weeks ago he was in [place] and went to an ER there and was given a 2 week prescription of 1 mg Xanax. Pt states he sometimes feels like he is bummin out. Pt states he tried to make them last as long as possible, and that he took his last one Wednesday. Pt denies SI/HI. Pt admits to one previous psychiatric hospitalization in [place], [place] for SI in 2005. Pt denies current psychiatric treatment, but states he's open to outpatient treatment. Pt states he has seen a psychiatrist in the past for about 6 months in 2005 and was on Seroquel 75 mg and Xanax 1 mg bid. 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 Pt states he enjoys his work but wishes hehad more hours. Pt lives with his ruchi Francois in an apartment. Pt does not have children. Pt is dovorced. Pt states that when he was younger he had a problem with alcohol and went to rehab at age 21 for etoh and thc. Pt states he has not drank for the past 2-2 1/2 months. Pt received his second DUI in 2002 and still has not gotten his license back. Pt denies current legal problems. Triaged with Dr. Gomes who recommends pt seek outpatient treatment. Dr. Lerma stated that if Dr. Gomes would like to make a medication recommendation he would write the pt a prescription for what she recommended. Dr. Gomes recommends Celexa 20 mg daily. Pt was unhappy with medication recommendation stating that takes time to build up in your system, that's not gonna help me now. Pt was informed of information on his discharge summary, but stated he did not care and walked out of his room. Pt was stopped and went back into his room as asked per ER staff to wait for discharge summary. Pt's UDS was positive for benzo's and thc. documented in this encounter ED Notes * Jeremias Lerma MD - 11/17/2009 3:50 PM CDT CHIEF COMPLAINT Chief Complaint Patient presents with ??? Anxiety HPI John Veliz is a 39 y.o. male who presents with Increasing anxiety over the past few months. Patient's denies any homicidal or suicidal ideation, states she's just getting more anxious every day. REVIEW OF SYSTEMS CONSTITUTIONAL: Denies fever, chills, or weakness ENT: Denies sore throat or ear pain CARDIOVASCULAR: Denies chest pain, palpitations or swelling RESPIRATORY: Denies cough or shortness of breath GI: Denies abdominal pain, nausea, vomiting, or diarrhea; Denies dysuria. MUSCULOSKELETAL: Denies back pain, difficulty moving extremities, swelling in any extremities. SKIN: No rash NEUROLOGIC: Denies headache, focal weakness or sensory changes All systems negative except as documented above. PAST MEDICAL HISTORY Past Medical History Diagnosis Date ??? Anxiety FAMILY HISTORY History reviewed. No pertinent family history. SOCIAL HISTORY History Social History ??? Marital Status: Single Spouse Name: N/A Number of Children: N/A ??? Years of Education: N/A Social History Main Topics ??? Tobacco Use: Yes -- 1.0 packs/day ??? Alcohol Use: No ??? Drug Use: No ??? Sexually Active: None Other Topics Concern ??? None Social History Narrative ??? None SURGICAL HISTORY Past Surgical History Procedure Date ??? Shoulder surgery 2001 left CURRENT MEDICATIONS No current outpatient prescriptions on file. ALLERGIES Allergies Allergen Reactions ??? Codeine PHYSICAL EXAM VITAL SIGNS: BP 129/89 Pulse 76 Temp(Src) 96.5 ??F (35.8 ??C) (Oral) Resp 18 Ht 5' 10 Wt72.576 kg (160 lb) SpO2 99% Constitutional: Well developed, Well nourished, male who is resting comfortably on the bed, in no current distress HENT: Normocephalic, Atraumatic, Bilateral external ears normal, Oropharynx moist, No oral exudates, Tongue in the midline position, Nose normal. Eyes: PERRL, EOMI, Conjunctiva normal, No discharge. Neck: Normal range of motion, No tenderness, Supple, no meningeal signs. Cardiovascular: Normal heart rate, Normal rhythm, No murmurs, No rubs, No gallops. Thorax & Lungs: Normal breath sounds, No respiratory distress, No wheezing, No rales, No ronchi. Skin: Warm, Dry, [place]. No erythema, No rash. Abdomen: Bowel sounds normal, Soft, No tenderness, No distention, No masses, No pulsatile masses. Extremities: Intact distal pulses, No edema, No tenderness, No cyanosis, No clubbing. Musculoskeletal: Good range of motion in all major joints. No tenderness to palpation or major deformities noted. Neurologic: Alert & oriented x 3, Normal motor function, Normal sensory function, No focal deficits noted. EKG none RADIOLOGY/PROCEDURES none COURSE & MEDICAL DECISION MAKING Pertinent Labs & Imaging studies reviewed. (See chart for details) Patient's blood alcohol level was within normal limits, his urine drug screen was positive for benzodiazepines and THC. [place] [facility] evaluated the patient and Dr. Gomes recommended. The patient be placed on Celexa, patient was not interested in this was requesting Xanax, patient stated he did not want any other medicine and was discharged from the department. FINAL IMPRESSION 1. anxiety 2. 3. Electronically signed but not proofread. This nursing care attendant was electronically signed. It was dictated by use of voice recognition software and electronically transcribed. The nursing care attendant may contain errors not detected in proofreading. * Jeremias Lerma MD - 11/17/2009 2:09 PM CDT * Bernie Cleary RN - 11/17/2009 2:07 PM CDT Pt c/o increased anxiety for the past two months. Pt denies SI/HI. Safety contract signed. documented in this encounter Miscellaneous Notes * Triage Assessment - Belinda Ruiz RN - 11/17/2009 2:11 PM CDT C/o increasing anxiety over past few months, states no trigger, just generally feeling anxious. documented in this encounter Plan of Treatment Not on file documented as of this encounter Procedures Procedure Name Priority Date/Time Associated Diagnosis Comments DRUG SCREEN MEDICAL STAT 11/17/2009 3 :00 PM CDT ALCOHOL SERUM MEDICAL STAT 11/17/2009 2:30 PM CDT documented in this encounter Results * DRUG SCREEN 7 MEDICAL (11/17/2009 3:00 PM CDT) THC POSITIVE RKD SUNQUEST Cocaine Metabolites Urine [...] ORDERING PHYSICIAN CAN CONTACT THE CHEMISTRY DEP'T ([phone]) WITHIN 1 WEEK OF RECIEPT IF CONFIRMATION IS NEEDED. THC NEGATIVE < 50 ng/ml COCAINE NEGATIVE <300NG/ML OPIATE NEGATIVE <2000NG/ML BENZO NEGATIVE ?? <200NG/ML JOSEF NEGATIVE ?? <200NG/ML AMPHET NEGATIVE <1000NG/ML PCP NEGATIVE ? <25NG/ML [facility]QUEST Urine (URINE,CLEAN CATCH (CCMS)) 11/17/2009 3:00 PM CDT 11/17/2009 3:21 PM CDT Jeremias Lerma MD URINE ORDERABLES Performing Organization Address City/[facility] Co de Phone Number SUNQUEST * ALCOHOL SERUM MEDICAL (11/17/2009 2:30 PM CDT) Alcohol Serum <10 <10 MG/DL SUNQUEST Comment:NORMAL: <10 MG/DL 80 MG/DL = 0.08 VOL% Blood (BLOOD) 11/17/2009 2:3 0 PM CDT 11/17/2009 2:34 PM CDT Jeremias Lerma MD CHEMISTRY ORDERABLES Performing Organization Address City/[facility] Co de Phone Number SUNQUEST documented in this encounter Visit Diagnoses Diagnosis Anxiety reaction Anxiety state, unspecified documented in this encounter
--- OUTSIDE RECORDS SUMMARY | 2024-08-23 12:21 | XMS_ITS | Encounter Summary ---
Author Organization [facility] Address [address] [place] [address] Care Team Providers Care Medieval English Literature Professor Name Role Phone Joanna Mckeon CLEAT THROWER Primary Care Provider [phone] Reason for Visit * Reason Comments Hypertension 1mo follow up Encounter Details Date Type Department Care Team (Late st Contact Info) Description 09/08/2023 2:30 PM INCIDENT RESPONSE COORDINATOR Office Visit [facility] Primary Care [place] [address] [place] [phone] Joanna Mckeon NP [address] [place] [address] Chronic bilateral low back pain without sciatica (Primary Dx); IGGY (generalized anxiety disorder) Social History Tobacco Use Types Packs/Day Years Used Date Smoking Tobacco: Every Day Cigarettes Smokeless Tobacco: Former Chew Quit: 2022 Tobacco Cessation:Ready to Q uit: Not Asked; Counseling Given: Not Answered PHQ-2 Answer Date Recorded Patient Health Questionnaire-2 Score 0 08/11/2023 Sex and Gender Information Value Date Recorded Sex Assigned at Not on file Legal Sex Male 8:17 AM CDT Gender Identity Not on file Sexual Orientation Not on file documented as of this encounter Last Filed Vital Signs Vital Sign Reading Time Taken Comments Blood Pressure 128/76 09/08/2023 2:39 PM INCIDENT RESPONSE COORDINATOR Pulse 76 09/08/2023 2:39 PM INCIDENT RESPONSE COORDINATOR Temperature 36.2 ??C (97.1 ??F) 09/08/2023 2:39 PM CS T Respiratory Rate 16 09/08/2023 2:39 PM INCIDENT RESPONSE COORDINATOR Oxygen Saturation 96% 09/08/2023 2:39 PM INCIDENT RESPONSE COORDINATOR Inhaled Oxygen Concentration - - Weight 84.4 kg (186 lb) 09/08/2023 2:39 PM INCIDENT RESPONSE COORDINATOR Height 177.8 cm (5' 10 ) 09/08/2023 2:39 PM INCIDENT RESPONSE COORDINATOR Body Mass Index 26.69 09/08/2023 2:39 PM INCIDENT RESPONSE COORDINATOR documented in this encounter Patient Instructions * Patient Instructions* Joanna Mckeon NP - 09/08/2023 2:30 PM INCIDENT RESPONSE COORDINATOR May use Ibuprofen and Lidocaine patch as needed DENT RESPONSE COORDINATOR * Attachments The following attachments cannot be sent through Care Everywhere. * Low Back Sprain or Strain Rehab (Pakistani) documented in this encounter Progress Notes * Joanna Mckeon NP - 09/08/2023 2:30 PM CST Images from the original note were not included. Patient ID: John Veliz is a 53 y.o. male : 1970 Subjective Chief Complaint Patient presents with ??? Hypertension 1mo follow up Hypertension This is a chronic problem. The current episode started more than 1 year ago. Associated symptoms include anxiety. Pertinent negatives include no chest pain, headaches, palpitations, peripheral edema or shortness of breath. Complains today of low back pain. I have reviewed, and updated if necessary, the history (chief complaint, review of systems, past medical, family and social history, history of present illness) documented by ancillary staff, and/or the beneficiary. The following have been reviewed and updated as appropriate in this visit: Tobacco Allergies Meds Problems Med Hx Surg Hx Fam Hx Review of Systems Constitutional: Negative for appetite change, chills, fatigue and fever. HENT: Negative for congestion, rhinorrhea and sore throat. Respiratory: Negative for cough and shortness of breath. Cardiovascular: Negative for chest pain, palpitations and leg swelling. Gastrointestinal: Negative for abdominal pain, diarrhea, nausea and vomiting. Musculoskeletal: Positive for back pain. Skin: Negative for rash. Allergic/Immunologic: Positive for environmental allergies. Neurological: Negative for seizures, weakness and headaches. Psychiatric/Behavioral: Positive for dysphoric mood. Negative for suicidal ideas. The patient is nervous/anxious. Sees Dr Tanner for counseling Objective Vitals Vitals: 09/08/23 1439 BP: 128/76 Pulse: 76 Resp: 16 Temp: 36.2 ??C (97.1 ??F) SpO2: 96% Weight: 84.4 kg (186 lb) Height: 70 PainSc: 8 Body mass index is 26.69 kg/m??. Physical Exam Vitals and nursing note reviewed. Constitutional: General: He is not in acute distress. Appearance: Normal appearance. HENT: Head: Normocephalic. Right Ear: Tympanic membrane normal. Left Ear: Tympanic membrane normal. Nose: Nose normal. No congestion. Cardiovascular: Rate and Rhythm: Normal rate and regular rhythm. Heart sounds: Normal heart sounds. Pulmonary: Effort: Pulmonary effort is normal. Breath sounds: Normal breath sounds. Musculoskeletal: Cervical back: Neck supple. No tenderness. Lymphadenopathy: Cervical: No cervical adenopathy. Skin: General: Skin is warm and dry. Neurological: General: No focal deficit present. Mental Status: He is alert and oriented to person, place, and time. Psychiatric: Mood and Affect: Mood normal. Assessment/Plan John was seen today for hypertension. Diagnoses and all orders for this visit: Chronic bilateral low back pain without sciatica - X-ray lumbar spine complete 4+ views IGGY (generalized anxiety disorder) - ALPRAZolam (XANAX) 0.5 mg tablet; Take 1 tablet (0.5 mg total) by mouth 3 (three) times a day as needed for anxiety Return in about 1 month (around 10/09/2023). Patient Instructions May use Ibuprofen and Lidocaine patch as needed Call with any issues. Return if not improving or if worsening. John voice(s) understanding and agreement with plan of care. Electronically Signed By: Joanna Mckeon NP 09/08/23 3:20 PM Statement for coding/billing: After evaluating the complexity of problems & data addressed, social determinants of health, and management options selected today, I believe the patient's risk of complication and/or morbidity or mortality to be moderate. DENT RESPONSE COORDINATOR documented in this encounter Plan of Treatment Upcoming Encounters Date Type Department Care Team (Late st Contact Info) Description 09/26/2024 10:30 AM INCIDENT RESPONSE COORDINATOR Office Visit [facility] Primary Care [address] [phone] Joanna Mckeon NP [address] [place] [address] [address] [place] [address] documented as of this encounter Procedures Procedure Name Priority Date/Time Associated Diagnosis Comments XR SPINE LUMBAR COMPLETE 4+ VW Routine 09/08/2023 3:44 PM INCIDENT RESPONSE COORDINATOR Chronic bilateral low back pain without sciatica documented in this encounter Results * X-ray lumbar spine complete 4+ views (09/08/2023 3:44 PM INCIDENT RESPONSE COORDINATOR) Anatomical Region Laterality Modality L-spine Digital Radiogra phy Narrative 09/09/2023 8:49 AM INCIDENT RESPONSE COORDINATOR EXAM: LUMBAR SPINE RADIOGRAPHS TECHNIQUE: Five views. ??AP, lateral, obliques, and cone-down lateral view. HISTORY: ?? Back pain. COMPARISON: None. FINDINGS: Mild multilevel degenerative changes with associated bilateral facet arthropathy with associated bilateral neural foraminal stenotic narrowings. There is normal stature and alignment of the vertebrae. There is no fracture. There is no lytic or blastic lesion. The disc height is normal. There is no spondylolysis. IMPRESSION: Lumbar spondylosis. Electronically signed by: CAMPBELL VERA M.D. Date: ? 09/09/2023 Time: ?08:49 Procedure Note Campbell Vera MD - 09/09/2023 EXAM: LUMBAR SPINE RADIOGRAPHS TECHNIQUE: Five views. AP, lateral, obliques, and cone-down lateralview. HISTORY: Back pain. COMPARISON: None. FINDINGS: Mild multilevel degenerative changes with associated bilateralfacet arthropathy with associated bilateral neural foraminal stenoticnarrowings. There is normal stature and alignment of the vertebrae. There is no fracture. There is no lytic or blastic lesion. The disc height is normal. There is no spondylolysis. IMPRESSION: Lumbar spondylosis. Electronically signed by: CAMPBELL VERA M.D. Date: 09/09/2023 Time: 08:49 Joanna Mckeon NP IMG XR PROCEDURES Final Re sult documented in this encounter Visit Diagnoses Diagnosis Chronic bilateral low back pain without sciatica- Primary IGGY (generalized anxiety disorder) Generalized anxiety disorder documented in this encounter Care Teams Medieval English Literature Professor Relationship Specialty Start Date End Date Joanna Mckeon NP PCP - General Nurse Practitioner Family 07/13/23 documented as of this encounter
--- OUTSIDE RECORDS SUMMARY | 2024-08-23 12:21 | XMS_ITS | Encounter Summary ---
Author Organization [facility] Address [address] [place] [address] Care Team Providers Care Bisque Cleaner Name Role Phone Joanna Mckeon MACHINE CLOTHING REPLACER Primary Care Provider [phone]- [phone] Encounter Details Date Type Department Care Team (Late Contact Info) Description 05/17/2024 Telephone [facility] Primary Care [place] [address] [place] [address] Joanna Mckeon NP [address] [place] [address] [address] [place] [address] Social History Tobacco Use Types Packs/Day Years Used Date Smoking Tobacco: Every Day Cigarettes Passive Smoke Exposure: Past Smokeless Tobacco: Former Chew Quit: 2022 Alcohol Use Standard Drinks/Week Comments Yes 0 (1 standard drink = 0.6 oz pur e alcohol) PHQ-2 Answer Date Recorded Patient Health Questionnaire-2 Score 0 10/06/2023 Sex and Gender Information Value Date Recorded Sex Assigned at Not on file Legal Sex Male 8:17 AM CDT Gender Identity Not on file Sexual Orientation Not on file documented as of this encounter Miscellaneous Notes * Telephone Encounter - Sharri Ordaz - 05/17/2024 9:12 AM CDT Pt requested copy of lab results dos: 05/11/24, he will picker box operator records/sign release documented in this encounter Plan of Treatment Upcoming Encounters Date Type Department Care Team (Late st Contact Info) Description 09/26/2024 10:30 AM HOG BUYER Office Visit [facility] Primary Care [address] [phone] Joanna Mckeon NP [address] [place] [address] documented as of this encounter Visit Diagnoses Not on filedocumented in this encounter Care Teams Bisque Cleaner Relationship Specialty Start Date End Date Joanna Mckeon NP PCP - General Nurse Practitioner Family 07/13/23 documented as of this encounter
--- OUTSIDE RECORDS SUMMARY | 2024-08-23 12:21 | XMS_ITS | Encounter Summary ---
Author Organization [facility] Address [address] [place] [address] Care Team Providers Care Test Administrator Name Role Phone Joanna Mckeon BODY BUILDER APPRENTICE Primary Care Provider +1- [phone] Reason for Visit * Reason Comments Alcohol Problem Pt has been on naltr exone for about 3 months now. Wasn't working real well. He ended stopping it and wanting to see about going back on Antabuse. He says the Antabuse he thinks works much better. He is going to be caregiving his father for awhile and needs to make sure he can stay alert and not drink. Encounter Details Date Type Department Care Team (Late st Contact Info) Description 03/06/2024 3:15 PM CDT Office Visit [facility] Primary Care [address] [place] [address] Joanna Mckeon NP [address] [place] [address] Alcoholism (HCC) (Primary Dx) Social History Tobacco Use Types Packs/Day Years Used Date Smoking Tobacco: Every Day Cigarettes Passive Smoke Exposure: Past Smokeless Tobacco: Former Chew Quit: 2022 Tobacco Cessation:Ready to Q uit: No Alcohol Use Standard Drinks/Week Comments Yes [...] Sign Reading Time Taken Comments Blood Pressure 134/80 03/06/2024 3:45 PM CDT Pulse 92 03/06/2024 3:45 PM CDT Temperature 36.3 ??C (97.3 ??F) 03/06/2024 3:45 PM CD T Respiratory Rate 18 03/06/2024 3:45 PM CDT Oxygen Saturation 97% 03/06/2024 3:45 PM CDT Inhaled Oxygen Concentration - - Weight 77.6 kg (171 lb) 03/06/2024 3:45 PM CDT Height 177.8 cm (5' 10 ) 03/06/2024 3:45 PM CDT Body Mass Index 24.54 03/06/2024 3:45 PM CDT documented in this encounter Progress Notes * Joanna Mckeon, BODY BUILDER APPRENTICE - 03/06/2024 3:15 PM CDT Images from the original note were not included. Patient ID: John Veliz is a 53 y.o. male : 1970 Subjective Chief Complaint Patient presents with Alcohol Problem Pt has been on naltrexone for about 3 months now. Wasn't working real well. He ended stopping it and wanting to see about going back on Antabuse. He says the Antabuse he thinks works much better. He is going to be caregiving his father for awhile and needs to make sure he can stay alert and not drink. HPI As above. Here for follow up on Alcohol Abuse. His Dad was in an accident and he needs to care for him. He feels stressed and states he has relapsed and drank alcohol. He is interested in Antabuse. I have reviewed, and updated if necessary, the history (chief complaint, review of systems, past medical, family and social history, history of present illness) documented by ancillary staff, and/or the beneficiary. The following have been reviewed and updated as appropriate in this visit: Tobacco Allergies Meds Problems Med Hx Surg Hx Fam Hx Review of Systems Constitutional: Negative for fever. HENT: Negative for congestion, rhinorrhea and sore throat. Respiratory: Negative for cough and shortness of breath. Cardiovascular: Negative for chest pain, palpitations and leg swelling. Gastrointestinal: Negative for abdominal pain and nausea. Genitourinary: Negative for difficulty urinating. Allergic/Immunologic: Positive for environmental allergies. Neurological: Negative for weakness and headaches. Psychiatric/Behavioral: The patient is nervous/anxious. Objective Vitals Vitals: 03/06/24 1545 BP: 134/80 BP Location: Left arm Patient Position: Sitting Pulse: 92 Resp: 18 Temp: 36.3 ??C (97.3 ??F) TempSrc: Temporal SpO2: 97% Weight: 77.6 kg (171 lb) Height: 70 Body mass index is 24.54 kg/m??. Physical Exam Vitals and nursing note reviewed. Constitutional: General: He is not in acute distress. Appearance: Normal appearance. Cardiovascular: Rate and Rhythm: Normal rate and regular rhythm. Heart sounds: Normal heart sounds. Neurological: Mental Status: He is alert. Psychiatric: Behavior: Behavior normal. Assessment/Plan John was seen today for alcohol problem. Diagnoses and all orders for this visit: Alcoholism (HCC) After discussing Antabuse and side effects/warnings he decides not to pursue it. He will continue Naltrexone 50 mg daily Discussed referral for additional help but states he is currently unable to do so while helping hisDad. Return for Next scheduled follow-up. There are no Patient Instructions on file for this visit. Call with any issues. Return if not improving or if worsening. John voice(s) understanding and agreement with plan of care. Electronically Signed By: Joanna Mckeon NP 03/11/24 12:01 AM Statement for coding/billing: After evaluating the complexity of problems & data addressed, social determinants of health, and management options selected today, I believe the patient's risk of complication and/or morbidity or mortality to be minimal. documented in this encounter Plan of Treatment Upcoming Encounters Date Type Department Care Team (Late st Contact Info) Description 09/26/2024 10:30 AM NEWSCAST DIRECTOR Office Visit [facility] Primary Care [address] [place] [phone] Joanna Mckeon NP [address] [place] [address] [address] [place] [address] documented as of this encounter Visit Diagnoses Diagnosis Alcoholism (HCC)- Primary Other and unspecified alcohol dependence, unspecified drinking behavior documented in this encounter Care Teams Test Administrator Relationship Specialty Start Date End Date Joanna Mckeon NP PCP - General Nurse Practitioner Family 07/13/23 documented as of this encounter
--- OUTSIDE RECORDS SUMMARY | 2024-08-23 12:21 | XMS_ITS | Encounter Summary ---
Author Organization [facility] Address [address] [place] [address] Care Team Providers Care Merchandise Supervisor Name Role Phone Joanna Mckeon AIR SUPPORT CONTROL OFFICER Primary Care Provider +1- [phone] Reason for Visit * Reason Comments Med Refill Encounter Details Date Type Department Care Team (Late st Contact Info) Description 02/25/2024 Refill [facility] Primary Care [address] [place] [place] [phone] Joanna Mckeon NP [address] [place] [id number] Hypertension, unspecified type Social History Tobacco Use Types Packs/Day Years Used Date Smoking Tobacco: Every Day Cigarettes Smokeless Tobacco: Former Chew Quit: 2022 PHQ-2 Answer Date Recorded Patient Health Questionnaire-2 Score 0 10/06/2023 Sex and Gender Information Value Date Recorded Sex Assigned at Not on file Legal Sex Male 8:17 AM CDT Gender Identity Not on file Sexual Orientation Not on file documented as of this encounter Plan of Treatment Upcoming Encounters Date Type Department Care Team (Late st Contact Info) Description 09/26/2024 10:30 AM TOBACCO PACKING MACHINE OPERATOR Office Visit [facility] Primary Care [place] [address] [place] [phone] Joanna Mckeon NP [address] [place] [id number] documented as of this encounter Visit Diagnoses Diagnosis Hypertension, unspecified type documented in this encounter Care Teams Merchandise Supervisor Relationship Specialty Start Date End Date Joanna Mckeon NP PCP - General Nurse Practitioner Family 07/13/23 documented as of this encounter
--- OUTSIDE RECORDS SUMMARY | 2024-08-23 12:21 | XMS_ITS | Encounter Summary ---
Author Organization [facility] Address [address] [place] [address] Care Team Providers Care Wardrobe Stylist Name Role Phone Joanna Mckeon NP Primary Care Provider +1- [phone] Reason for Visit * Reason Comments Injections Patient in for testo sterone injection. Encounter Details Date Type Department Care Team (Latest Contact Info) Description 06/14/2024 2:30 PM CDT [facility] Primary Care [address] [place] [address] Nurse, [facility] Male hypogonadism (Primary Dx) Social History Tobacco [...] st Contact Info) Description 09/26/2024 10:30 AM EDITORIAL WRITER [facility] Primary Care [address] [place] [address] Joanna Mckeon NP [address] [place] [address] [address] [place], [place] [phone] documented as of this encounter Visit Diagnoses Diagnosis Male hypogonadism- Primary Other testicular hypofunction documented in this encounter Administered Medications Inactive Administered Medications - up to 3 most recent administrations Medication Order MAR Action Action Date Dose Rate Site testosterone cypionate (DEPO-TESTOSTERONE) 200 mg/mL injection 200 mg 200 mg, intramuscular, Once, On Wed06/14/24 at 1545, For 1 dose, For IM injection only.Indications:Male hypogonadism Given 06/14/2024 3:20 PM CDT 200 mg Left Dorsogluteal documented in this encounter Care Teams Wardrobe Stylist Relationship Specialty Start Date End Date Joanna Mckeon NP PCP - General Nurse Practitioner Family 07/13/23 documented as of this encounter
--- OUTSIDE RECORDS SUMMARY | 2024-08-23 12:21 | XMS_ITS | Encounter Summary ---
Author Organization [facility] Address [address] [place] [address] Care Team Providers Care Shot Dropper Name Role Phone Joanna Mckeon NP Primary Care Provider +1- [phone] Reason for Referral * Medication Prior Authorization - Closed Specialty Diagnoses / Procedures Referred By Elieser payton Referred To Contact Diagnoses Testosterone deficiency Joanna Mckeon NP [address] [place] [address] Phone: tel: fax: Referral ID Status Reason Start Date Expiration Date Visits Re quested Visits Authorized [id number] Closed 1 1 Reason for Visit * Reason Comments Erectile Dysfunction Pt here for ED. The doctor (urologist that came to [facility] ever so often) he is not seeing. He needs refill on his testosterone and clomid. He would also like script for generic Cialis 20 mg #60, take one daily as needed. Hypertension Pt here for recheck htn. Has home BP monitor and checks occasionally. He says usually runs pretty good. Denies any sob or cp. States that his stress level is a lot less now. Hasn't been drinking for 2-3 months. Anxiety Pt here for anxiety check. Has been working out again and that has helped with anxiety also. Encounter Details Date Type Department Care Team (Late st Contact Info) Description 05/10/2024 6:45 PM CDT Office Visit [facility] Primary Care [address] [place] [phone] Joanna Mckeon NP [address] [place] [address] Erectile dysfunction, unspecified erectile dysfunction type (Primary Dx); Testosterone deficiency; Dyslipidemia; Screening for prostate cancer; Hypertension, unspecified type; Hypovitaminosis D Social History Tobacco Use Types Packs/Day Years Used Date Smoking Tobacco: Every Day Cigarettes Passive Smoke Exposure: Past Smokeless Tobacco: Former Chew Quit: 2022 Tobacco Cessation:Ready to Q uit: Not Asked; Counseling Given: Yes Alcohol Use Standard Drinks/Week Comments [...] Sign Reading Time Taken Comments Blood Pressure 144/80 05/10/2024 6:55 PM CDT Pulse 88 05/10/2024 6:55 PM CDT Temperature 36.8 ??C (98.2 ??F) 05/10/2024 6:55 PM CD T Respiratory Rate 18 05/10/2024 6:55 PM CDT Oxygen Saturation 96% 05/10/2024 6:55 PM CDT Inhaled Oxygen Concentration - - Weight 86.6 kg (191 lb) 05/10/2024 6:55 PM CDT Height 177.8 cm (5' 10 ) 05/10/2024 6:55 PM CDT Body Mass Index 27.41 05/10/2024 6:55 PM CDT documented in this encounter Progress Notes * Joanna Mckeon NP - 05/10/2024 6:45 PM CDT Images from the original note were not included. Patient ID: John Veliz is a 53 y.o. male : 1970 Subjective Chief Complaint Patient presents with Erectile Dysfunction Pt here for ED. The doctor (urologist that came to [facility] ever so often) he is not seeing. He needs refill on his testosterone and clomid. He would also like script for generic Cialis 20 mg #60, take one daily as needed. Hypertension Pt here for recheck htn. Has home BP monitor and checks occasionally. He says usually runs pretty good. Denies any sob or cp. States that his stress level is a lot less now. Hasn't been drinking for 2-3 months. Anxiety Pt here for anxiety check. Has been working out again and that has helped with anxiety also. Erectile Dysfunction Non-physiologic factors contributing to erectile dysfunction are anxiety. Pertinent negatives include no chills. Hypertension Associated symptoms include anxiety. Pertinent negatives include no chest pain, palpitations or shortness of breath. Anxiety Symptoms include nervous/anxious behavior. Patient reports no chest pain, nausea, palpitations or shortness of breath. I have reviewed, and updated if necessary, the history (chief complaint, review of systems, past medical, family and social history, history of present illness) documented by ancillary staff, and/or the beneficiary. The following have been reviewed and updated as appropriate in this visit: Tobacco Allergies Meds Problems Med Hx Surg Hx Fam Hx Review of Systems Constitutional: Negative for chills, fatigue and fever. Respiratory: Negative for cough, chest tightness and shortness of breath. Cardiovascular: Negative for chest pain, palpitations and leg swelling. Gastrointestinal: Negative for abdominal pain and nausea. Skin: Negative for color change. Psychiatric/Behavioral: The patient is nervous/anxious. Objective Vitals Vitals: 05/10/24 1855 BP: (!) 144/80 BP Location: Left arm Patient Position: Sitting Pulse: 88 Resp: 18 Temp: 36.8 ??C (98.2 ??F) TempSrc: Temporal SpO2: 96% Weight: 86.6 kg (191 lb) Height: 70 Body mass index is 27.41 kg/m??. Physical Exam Vitals and nursing note [...] normal. Assessment/Plan John was seen today for erectile dysfunction, hypertension and anxiety. Diagnoses and all orders for this visit: Erectile dysfunction, unspecified erectile dysfunction type - tadalafiL (CIALIS) 20 mg tablet; Take 1 tablet (20 mg total) by mouth daily as needed for erectile dysfunction Gets filled at [facility]. Testosterone deficiency - testosterone cypionate (DEPO-TESTOSTERONE) 200 mg/mL injection; Inject 1 mL (200 mg total) into alarge muscle every 14 (fourteen) days - clomiPHENE (CLOMID) 50 mg tablet; Take 1 tablet (50 mg total) by mouth once a week [facility] Test[facility], Free, Total, & Sex Hormone Binding Globulin; Future - Estradiol; Future Dyslipidemia - CMP; Future - Lipid Panel Reflex to LDL, Direct; Future - TSH Reflex to FT4; Future Screening for prostate cancer - PSA, Screening; Future Hypertension, unspecified type - CBC and Differential; Future Hypovitaminosis D - Vitamin D 25 Hydroxy; Future Nurse to call with test results and any further instructions. Instructed to call office or send message through My Chart if has not heard anything in over one week. Return for Next scheduled follow-up. There are no Patient Instructions on file for this visit. Call with any issues. Return if not improving or if worsening. John voice(s) understanding and agreement with plan of care. Electronically Signed By: Joanna Mckeon NP 05/16/24 8:06 AM Statement for coding/billing: After evaluating the complexity of problems & data addressed, social determinants of health, and management options selected today, I believe the patient's risk of complication and/or morbidity or mortality to be moderate. documented in this encounter Plan of Treatment Upcoming Encounters Date Type Department Care Team (Late st Contact Info) Description 09/26/2024 10:30 AM VACUUM EVAPORATION OPERATOR Office Visit [facility] Primary Care [address] [place] [address] Joanna Mckeon NP [address] [place] [address] [address] [place] [address] documented as of this encounter Results * (ABNORMAL) Vitamin D 25 Hydroxy (05/11/2024 9:49 AM CDT) Vitamin D 25-Hydroxy 24.9(L) 30.0 - 100.0 ng/mL 05/11/2024 8:06 PM CDT [facility] Blood Venous blood specimen / Unknown Venipuncture / Unknown 05/11/2024 9:49 AM CDT 05/11/2024 9:49 AM CDT Joanna Mckeon HOISTING ENGINE OPERATOR LAB BLOOD ORDERABLES Final Result [address] [address] * Estradiol (05/11/2024 9:49 AM CDT) Pathologist [facility] Estradiol 37.70 See note below pg/mL 05/11/2024 8:20 PM CDT [facility] Blood Venous blood specimen / Unknown Venipuncture / Unknown 05/11/2024 9:49 AM CDT 05/11/2024 9:49 AM CDT Narrative [facility] - 05/11/2024 8:20 PM CDT FEMALES: ?? Non- Early Follicular: 20.0 -157 pg/mL Mid Follicular: 20.7 - 139 pg/mL Ovulatory Peak: 19.3 - 622 pg/mL Mid Luteal: 25.8 - 279 pg/mL FEMALES: ??Post-Menopausal Not On Hormone Therapy: <15 - 30 pg/mL MALES: >=19 Years Old: <15 - 33.1 pg/mL Interpretation Of Results: The Access Sensitive Estradiol assay results are not intended to be used to measure the effectiveness of exogenous estradiol supplementation, for example, when the patient is on hormone replacement therapy. The presence of estradiol drug analogues and their metabolites could have an impact on estradiol recovery when using this assay. The Access Sensitive Estradiol assay results should be interpreted in light of the total clinical presentation of the patient, including: symptoms, clinical history, data from additional tests, and other appropriate information. The reference intervals are based on published literature(3). Reference intervals have not been verified. Exercise caution when interpreting results, taking into account the clinical context and supplementary reference material. ? Joanna Mckeon NP LAB BLOOD ORDERABLES Final Result Performing Organization Address City/[facility] Co de Phone Number [facility] [address] [place] [address] * TSH Reflex to FT4 (05/11/2024 9:49 AM CDT) Pathologist [facility] TSH 0.862 0.358 - 3.740 uIU/mL 05/11/2024 5:35 PM CDT [facility] Blood Venous blood specimen / Unknown Venipuncture / Unknown 05/11/2024 9:49 AM CDT 05/11/2024 9:49 AM CDT Joanna Mckeon NP LAB BLOOD ORDERABLES Final Result Performing Organization Address [facility] de Phone Number [facility] [address] [place] [address], * (ABNORMAL) Lipid Panel Reflex to LDL, Direct (05/11/2024 9:49 AM CDT) Triglycerides 385(H) 30 - 150 mg/dL 05/11/2024 5:35 PM CDT [facility] Cholesterol 200 0 - 200 mg/dL 05/11/2024 5:35 PM CDT [facility] HDL Cholesterol 32(L) 40 - 59 mg/dL 05/11/2024 5:35 PM CDT [facility] LDL Cholesterol (Calc) 91 <=100 mg/dL 05/11/2024 5:35 PM CDT [facility] Blood Venous blood specimen / Unknown Venipuncture / Unknown 05/11/2024 9:49 AM CDT 05/11/2024 9:49 AM CDT Joanna Mckeon NP LAB BLOOD ORDERABLES Final Result Performing Organization Address [facility] Co de Phone Number [facility] [address] [place] [address], [place] * (ABNORMAL) CMP (05/11/2024 9:49 AM T) Sodium 135(L) 136 - 145 mmol/L 05/11/2024 5:35 PM [facility] Potassium 4.0 3.5 - 5.1 mmol/L 05/11/2024 5:35 PM [facility] Chloride 100 98 - 107 mmol/L 05/11/2024 5:35 PM [facility] Carbon Dioxide 29 21 - 32 mmol/L 05/11/2024 5:35 PM [facility] Blood Urea Nitrogen 15 7 - 18 mg/dL 05/11/2024 5:35 PM [facility] Creatinine 1.27 0.55 - 1.30 mg/dL 05/11/2024 5:35 PM [facility] Glucose 105 74 - 106 mg/dL 05/11/2024 5:35 PM [facility] Calcium 8.9 8.5 - 10.1 mg/dL 05/11/2024 5:35 PM [facility] AST/SGOT 23 15 - 37 U/L 05/11/2024 5:35 PM [facility] ALT/SGPT 31 13 - 61 U/L 05/11/2024 5:35 PM [facility] Alk Phos 71 45 - 117 U/L 05/11/2024 5:35 PM [facility] Total Protein 7.3 6.4 - 8.2 g/dL 05/11/2024 5:35 PM [facility] Albumin 3.8 3.4 - 5.0 g/dL 05/11/2024 5:35 PM [facility] Bilirubin,Total 0.5 0.2 - 1.0 mg/dL 05/11/2024 5:35 PM [facility] GFR Estimate (CKD-EPI) 68 mL/min 05/11/2024 5:35 PM [facility] Anion Gap Without K 6 2 - 15 mmol/L 05/11/2024 5:35 PM [facility] Blood Venous blood specimen / Unknown Venipuncture / Unknown 05/11/2024 9:49 AM CDT 05/11/2024 9:49 AM CDT Joanna Mckeon HOISTING ENGINE OPERATOR LAB BLOOD ORDERABLES Final Result [facility] [address] [place] [address], * PSA, Screening (05/11/2024 9:49 AM CDT) Prostate Specific Antigen 0.64 0.00 - 4.00 ng/mL 05/11/2024 5:35 PM CDT [facility] Blood Venous blood specimen / Unknown Venipuncture / Unknown 05/11/2024 9:49 AM CDT 05/11/2024 9:49 AM CDT Joanna Mckeon NP LAB BLOOD ORDERABLES Final Result Performing Organization Address [facility] Co de Phone Number [facility] [address] [place] [address], documented in this encounter Visit Diagnoses Diagnosis Erectile dysfunction, unspecified erectile dysfunction type- Primary Testosterone deficiency Other testicular hypofunction Dyslipidemia Other and unspecified hyperlipidemia Screening for prostate cancer Special screening for malignant neoplasm of prostate Hypertension, unspecified type Hypovitaminosis D Unspecified vitamin D deficiency documented in this encounter Care Teams Shot Dropper Relationship Specialty Start Date End Date Joanna Mckeon NP PCP - General Nurse Practitioner Family 07/13/23 documented as of this encounter
--- OUTSIDE RECORDS SUMMARY | 2024-08-23 12:21 | XMS_ITS | Encounter Summary ---
Author Organization [facility] Address [address] [place] [address] Care Team Providers Care Sheriffs Name Role Phone Joanna Mckeon NP Primary Care Provider +1- [phone] Reason for Visit * Reason Comments Injections Patient in for testo sterone injection. Encounter Details Date Type Department Care Team (Latest Contact Info) Description 05/11/2024 10:00 AM CDT Clinical Support [facility] Primary Care [address] [place] [address] Nurse, [facility] Testosterone deficiency (Primary Dx) Social History Tobacco [...] st Contact Info) Description 09/26/2024 10:30 AM FIELD SUPPORT ENGINEER Office Visit [facility] Primary Care [address] [place] [address] Joanna Mckeon NP [address] [facility] [address] [place], [place] [address] documented as of this encounter Visit Diagnoses Diagnosis Testosterone deficiency- Primary Other testicular hypofunction documented in this encounter Administered Medications Inactive Administered Medications - up to 3 most recent administrations Medication Order MAR Action Action Date Dose Rate Site testosterone cypionate (DEPO-TESTOSTERONE) 200 mg/mL injection 200 mg 200 mg, intramuscular, Once, On Regi 05/11/24 at 1100, For 1 dose, For IM injection only.Indications:Testost erone deficiency Given 05/11/2024 10:38 AM CDT 200 mg Right Dorsogluteal documented in this encounter Care Teams Sheriffs Relationship Specialty Start Date End Date Joanna Mckeon NP PCP - General Nurse Practitioner Family 07/13/23 documented as of this encounter
--- OUTSIDE RECORDS SUMMARY | 2024-08-23 12:21 | XMS_ITS | Encounter Summary ---
Author Organization [facility] Address [address] [place] [address] Care Team Providers Care Extension Work Instructor Name Role Phone Joanna Mckeon FINISHER CARD TENDER Primary Care Provider +1- [phone] Encounter Details Date Type Department Care Team (Late st Contact Info) Description 09/14/2023 Telephone [facility] Primary [place] [address] [place] [phone] Joanna Mckeon NP [address] [place] [address] Social History Tobacco Use Types [...] encounter Miscellaneous Notes * Telephone Encounter - Velvet Anderson LPN - 09/17/2023 2:40 PM CST Talked with pt he asked if he could lift weights,advised pt to call back next week and I will ask Joanna she is off today. Velvet Anderson lpn LIFT AND AUTOMATIC WINDOW REPAIRER * Telephone Encounter - Naina Felton - 09/14/2023 6:16 PM CST Patient called wanting conform his DX on his x ray results please [phone] LIFT AND AUTOMATIC WINDOW REPAIRER documented in this encounter Plan of Treatment Upcoming Encounters Date Type Department Care Team (Late st Contact Info) Description 09/26/2024 10:30 AM TOP LIFT AND AUTOMATIC WINDOW REPAIRER Office Visit [facility] Primary Care [address] [place] [address] Joanna Mckeon NP [address] [place] [address] documented as of this encounter Visit Diagnoses Not on filedocumented in this encounter Care Teams Extension Work Instructor Relationship Specialty Start Date End Date Joanna Mckeon NP PCP - General Nurse Practitioner Family 07/13/23 documented as of this encounter
--- OUTSIDE RECORDS SUMMARY | 2024-08-23 12:21 | XMS_ITS | Encounter Summary ---
Author Organization [facility] Address [address] [place] [address] Care Team Providers Care Neighborhood Worker Name Role Phone Joanna Mckeon NP Primary Care Provider +1- [phone] Reason for Visit * Reason Comments Hypertension Here for recheck htn .Needs refill on Lisinopril. Anxiety Here for recheck. Ne eds Xanax refilled. Has 1 refill on Wellbutrin. Encounter Details Date Type Department Care Team (Late st Contact Info) Description 10/06/2023 10:00 AM PIPE THREADER Office Visit [facility] Primary Care [address] [place] [address] Joanna Mckeon NP [address] [place] [address] Hypertension, unspecified type; Depression, unspecified depression type; IGGY (generalized anxiety disorder) Social History Tobacco Use Types Packs/Day Years Used Date Smoking Tobacco: Every Day Cigarettes Smokeless Tobacco: Former Chew Quit: 2022 Tobacco Cessation:Ready to Q uit: Not Asked; Counseling Given: Yes PHQ-2 Answer Date Recorded Patient Health Questionnaire-2 Score 0 10/06/2023 Sex and Gender Information Value Date Recorded Sex Assigned at Not on file Legal Sex Male 8:17 AM CDT Gender Identity Not on file Sexual Orientation Not on file documented as of this encounter Last Filed Vital Signs Vital Sign Reading Time Taken Comments Blood Pressure 134/80 10/06/2023 10:05 AM PIPE THREADER Pulse 70 10/06/2023 10:05 AM PIPE THREADER Temperature 36.6 ??C (97.8 ??F) 10/06/2023 10:[address] Respiratory Rate 18 10/06/2023 10:05 AM PIPE THREADER Oxygen Saturation 98% 10/06/2023 10:05 AM PIPE THREADER Inhaled Oxygen Concentration - - Weight 84.8 kg (187 lb) 10/06/2023 10:05 AM PIPE THREADER Height 177.8 cm (5' 10 ) 10/06/2023 10:05 AM PIPE THREADER Body Mass Index 26.83 10/06/2023 10:05 AM PIPE THREADER documented in this encounter Patient Instructions * Attachments The following attachments cannot be sent through Care Everywhere. * DASH Eating Plan (Cook Islander) * Mediterranean Diet (Cook Islander) documented in this encounter Progress Notes * Joanna Mckeon NP - 10/06/2023 10:00 AM CST Images from the original note were not included. Patient ID: John Veliz is a 53 y.o. male : 1970 Subjective Chief Complaint Patient presents with ??? Hypertension Here for recheck htn.Needs refill on Lisinopril. ??? Anxiety Here for recheck. Needs Xanax refilled. Has 1 refill on Wellbutrin. Hypertension This is a chronic problem. The current episode started more than 1 year ago. Associated symptoms include anxiety. Pertinent negatives include no chest pain, headaches, palpitations, peripheral edema or shortness of breath. Anxiety Symptoms include nervous/anxious behavior. Patient reports no chest pain, nausea, palpitations, shortness of breath or suicidal ideas. Has made dietary changes. Following a low cholesterol diet and eating more vegetables. He is also lifting weights. I have reviewed, and updated if necessary, [...] Dr Tanner for counseling Objective Vitals Vitals: 10/06/23 1005 BP: 134/80 BP Location: Left arm Patient Position: Sitting Pulse: 70 Resp: 18 Temp: 36.6 ??C (97.8 ??F) TempSrc: Temporal SpO2: 98% Weight: 84.8 kg (187 lb) Height: 70 Body mass index is 26.83 kg/m??. Physical Exam Vitals and nursing note [...] normal. Assessment/Plan John was seen today for hypertension and anxiety. Diagnoses and all orders for this visit: Hypertension, unspecified type - lisinopriL 5 mg tablet; Take 1 tablet (5 mg total) by mouth daily Depression, unspecified depression type - buPROPion (WELLBUTRIN) 75 mg tablet; Take 1 tablet (75 mg total) by mouth daily IGGY (generalized anxiety disorder) - ALPRAZolam (XANAX) 0.5 mg tablet; Take 1 tablet (0.5 mg total) by mouth 3 (three) times a day as needed for anxiety Return in about 3 months (around 01/04/2024). There are no Patient Instructions on file for this visit. Call with any issues. Return if not improving or if worsening. John voice(s) understanding and agreement with plan of care. Electronically Signed By: Joanna Mckeon NP 10/07/23 12:35 AM Statement for coding/billing: After evaluating the complexity of problems & data addressed, social determinants of health, and management options selected today, I believe the patient's risk of complication and/or morbidity or mortality to be moderate. THREADER documented in this encounter Plan of Treatment Upcoming Encounters Date Type Department Care Team (Late st Contact Info) Description 09/26/2024 10:30 AM PIPE THREADER Office Visit [facility] Primary Care [address] [place] [address] Joanna Mckeon NP [address] [place] [address] [address] [place] [address] documented as of this encounter Visit Diagnoses Diagnosis Hypertension, unspecified type Depression, unspecified depression type IGGY (generalized anxiety disorder) Generalized anxiety disorder documented in this encounter Care Teams Neighborhood Worker Relationship Specialty Start Date End Date Joanna Mckeon NP PCP - General Nurse Practitioner Family 07/13/23 documented as of this encounter
--- OUTSIDE RECORDS SUMMARY | 2024-08-23 12:21 | XMS_ITS | Encounter Summary ---
Author Organization [facility] Address [address] [place] [address] Care Team Providers Care Supervisor Gear Repair Name Role Phone Joanna Mckeon AUTOMATIC TRANSMISSION MECHANIC Primary Care Provider [phone]- [phone] Reason for Visit * Reason Comments Hypertension Med refills Encounter Details Date Type Department Care Team (Late st Contact Info) Description 01/18/2024 11:00 AM CDT Office Visit [facility] Primary Care [place] [address] [place] [phone] Joanna Mckeon NP [address] [place], [place] [phone] Hypertension, unspecified type (Primary Dx); Alcoholism (HCC) Social History Tobacco Use Types Packs/Day Years Used Date Smoking Tobacco: Every Day Cigarettes Smokeless Tobacco: Former Chew Quit: 2022 Tobacco Cessation:Ready to Q uit: No; Counseling Given: Yes PHQ-2 Answer Date Recorded Patient Health Questionnaire-2 Score 0 10/06/2023 Sex and Gender Information Value Date Recorded Sex Assigned at Not on file Legal Sex Male 8:17 AM CDT Gender Identity Not on file Sexual Orientation Not on file documented as of this encounter Last Filed Vital Signs Vital Sign Reading Time Taken Comments Blood Pressure 168/96 01/18/2024 11:15 AM CDT Pulse 110 01/18/2024 11:15 AM CDT Temperature 36.7 ??C (98 ??F) 01/18/2024 11:15 AM CDT Respiratory Rate 18 01/18/2024 11:15 AM CDT Oxygen Saturation 97% 01/18/2024 11:15 AM CDT Inhaled Oxygen Concentration - - Weight 80.7 kg (178 lb) 01/18/2024 11:15 AM CDT Height 177.8 cm (5' 10 ) 01/18/2024 11:15 AM CDT Body Mass Index 25.54 01/18/2024 11:15 AM CDT documented in this encounter Patient Instructions * Patient Instructions* Joanna Mckeon NP - 01/18/2024 11:00 AM CDT Monitor BP and call office if it remains elevated. documented in this encounter Progress Notes * Joanna Mckeon NP - 01/18/2024 11:00 AM CDT Images from the original note were not included. Patient ID: John Veliz is a 53 y.o. male : 1970 Subjective Chief Complaint Patient presents with Hypertension Med refills John is here for follow up on Hypertension John is a recovering alcoholic who used naltrexone when he quit drinking in 2016. States he relapsed 2 weeks ago and has drank twice. He has been working long hours away from home and his support system, which he thinks is why he relapsed. He would like to resume naltrexone. He is accompanied by his fiancee. His BP is elevated. He admits to feeling stressed over his recent drinking, his work schedule and being away from [facility] and [facility] while working. I have reviewed, and updated if necessary, [...] rhinorrhea and sore throat. Respiratory: Negative for cough. Cardiovascular: Negative for chest pain, palpitations and leg swelling. Gastrointestinal: Negative for abdominal pain and nausea. Genitourinary: Negative for difficulty urinating. Skin: Negative for rash. Allergic/Immunologic: Positive for environmental allergies. Neurological: Negative for weakness. Psychiatric/Behavioral: Negative for suicidal ideas. The patient is nervous/anxious. Objective Vitals Vitals: 01/18/24 1115 BP: (!) 168/96 Pulse: (!) 110 Resp: 18 Temp: 36.7 ??C (98 ??F) SpO2: 97% Weight: 80.7 kg (178 lb) Height: 70 PainSc: 0-No pain Body mass index is 25.54 kg/m??. Physical Exam Vitals and nursing note [...] and time. Psychiatric: Mood and Affect: Mood is anxious. Behavior: Behavior normal. Cognition and Memory: Cognition normal. Assessment/Plan John was seen today for hypertension. Diagnoses and all orders for this visit: Hypertension, unspecified type Comments: Lisinopril is increased Orders: - lisinopriL 10 mg tablet; Take 1 tablet (10 mg total) by mouth daily Alcoholism (HCC) - naltrexone (DEPADE) 50 mg tablet; Take 1 tablet (50 mg total) by mouth daily He is encouraged in his efforts to avoid alcohol. Stress reducing measures discussed. Return if symptoms worsen or fail to improve, for Next scheduled follow-up. Patient Instructions Monitor BP and call office if it remains elevated. Call with any issues. Return if not improving or if worsening. John voice(s) understanding and agreement with plan of care. Electronically Signed By: Joanna Mckeon NP 01/18/24 7:03 PM Statement for coding/billing: After evaluating the complexity of problems & data addressed, social determinants of health, and management options selected today, I believe the patient's risk of complication and/or morbidity or mortality to be moderate. documented in this encounter Plan of Treatment Upcoming Encounters Date Type Department Care Team (Late st Contact Info) Description 09/26/2024 10:30 AM OCCUPATIONAL THERAPIST AIDE Office Visit [facility] Primary Care [address] [place] [address] Joanna Mckeon NP [address] [place] [address] documented as of this encounter Visit Diagnoses Diagnosis Hypertension, unspecified type- Primary Alcoholism (HCC) Other and unspecified alcohol dependence, unspecified drinking behavior documented in this encounter Care Teams Supervisor Gear Repair Relationship Specialty Start Date End Date Joanna Mckeon NP PCP - General Nurse Practitioner Family 07/13/23 documented as of this encounter
--- OUTSIDE RECORDS SUMMARY | 2024-08-23 12:21 | XMS_ITS | Encounter Summary ---
Author Organization [facility] Address [address] [place] [address] Care Team Providers Care Rink Rat Name Role Phone Joanna Mckeon NP Primary Care Provider +1- [phone] Reason for Visit * Reason Comments Hypertension Pt here for 3 month htn check. Chronic bilateral low back p ain without sciatica Pt here for chronic low back pain. Pt states he is not having any pain today. Encounter Details Date Type Department Care Team (Late st Contact Info) Description 01/03/2024 10:45 AM CDT Office Visit [facility] Primary [facility] [place] [address] [place] [phone] Joanna Mckeon NP [address] [place] [address] Hypertension, unspecified type (Primary Dx); Depression, unspecified depression type; IGGY (generalized anxiety disorder); Hx of disseminated herpes zoster infection Social History Tobacco Use Types Packs/Day Years [...] Sign Reading Time Taken Comments Blood Pressure 160/84 01/03/2024 10:52 AM CDT Pulse 87 01/03/2024 10:52 AM CDT Temperature 36.4 ??C (97.5 ??F) 01/03/2024 10:52 AM C DT Respiratory Rate 18 01/03/2024 10:52 AM CDT Oxygen Saturation 97% 01/03/2024 10:52 AM CDT Inhaled Oxygen Concentration - - Weight 83.5 kg (184 lb) 01/03/2024 10:52 AM CDT Height 177.8 cm (5' 10 ) 01/03/2024 10:52 AM CDT Body Mass Index 26.4 01/03/2024 10:52 AM CDT documented in this encounter Progress Notes * Joanna Mckeon NP - 01/03/2024 10:45 AM CDT Images from the original note were not included. Patient ID: John Veliz is a 53 y.o. male : 1970 Subjective Chief Complaint Patient presents with Hypertension Pt here for 3 month htn check. Chronic bilateral low back pain without sciatica Pt here for chronic low back pain. Pt states he is not having any pain today. Hypertension This is a chronic problem. The current episode started more than 1 year ago. Associated symptoms include anxiety. Pertinent negatives include no chest pain, headaches, palpitations, peripheral edema or shortness of breath. Anxiety Symptoms include nervous/anxious behavior. Patient reports no chest pain, nausea, palpitations, shortness of breath or suicidal ideas. Back Pain This is a chronic problem. The current episode started more than 1 year ago. The pain is present inthe lumbar spine and sacro-iliac. The pain does not radiate. Pertinent negatives include no abdominal pain, chest pain, fever, headaches or weakness. I have reviewed, and updated if necessary, [...] rhinorrhea and sore throat. Respiratory: Negative for shortness of breath. Cardiovascular: Negative for chest pain and palpitations. Gastrointestinal: Negative for abdominal pain and nausea. Genitourinary: Negative for difficulty urinating. Musculoskeletal: Positive for back pain. Skin: Negative for rash. Allergic/Immunologic: Positive for environmental allergies. Neurological: Negative for weakness and headaches. Psychiatric/Behavioral: Negative for suicidal ideas. The patient is nervous/anxious. Objective Vitals Vitals: 01/03/24 1052 BP: (!) 160/84 BP Location: Left arm Patient Position: Sitting Pulse: 87 Resp: 18 Temp: 36.4 ??C (97.5 ??F) TempSrc: Temporal SpO2: 97% Weight: 83.5 kg (184 lb) Height: 70 PainSc: 0-No pain Body mass index is 26.4 kg/m??. Physical Exam Vitals and nursing note [...] John was seen today for hypertension and chronic bilateral low back pain without sciatica. Diagnoses and all orders for this visit: [...] times a day as needed for anxiety Hx of disseminated herpes zoster infection - valACYclovir (VALTREX) 1 gram tablet; Take 1 tablet (1,000 mg total) by mouth 2 times a day for 7days Return in about 3 months (around 04/03/2024). There are no Patient Instructions on file for this visit. Call with any issues. Return if not improving or if worsening. John voice(s) understanding and agreement with plan of care. Electronically Signed By: Joanna Mckeon NP 01/03/24 12:44 PM Statement for coding/billing: After evaluating the complexity of problems & data addressed, social determinants of health, and management options selected today, I believe the patient's risk of complication and/or morbidity or mortality to be moderate. documented in this encounter Plan of Treatment Upcoming Encounters Date Type Department Care Team (Late st Contact Info) Description 09/26/2024 10:30 AM HEALTH SERVICE WORKER Office Visit [facility] Primary Care [address] [place] [address] Joanna Mckeon NP [address] [place] [address] documented as of this encounter Visit Diagnoses Diagnosis Hypertension, unspecified type- Primary Depression, unspecified depression type IGGY (generalized anxiety disorder) Generalized anxiety disorder Hx of disseminated herpes zoster infection documented in this encounter Care Teams Rink Rat Relationship Specialty Start Date End Date Joanna Mckeon NP PCP - General Nurse Practitioner Family 07/13/23 documented as of this encounter
--- OUTSIDE RECORDS SUMMARY | 2024-08-23 12:21 | XMS_ITS | Encounter Summary ---
Author Organization [facility] Address [address] [place] [address] Care Team Providers Care Trial Judge Name Role Phone Joanna Mckeon NP Primary Care Provider +1- [phone] Reason for Visit * Reason Comments Med Refill Encounter Details Date Type Department Care Team (Late st Contact Info) Description 03/20/2024 Refill [facility] Primary Care [address] [address] Joanna Mckeon NP [address] [place] [address] IGGY (generalized anxiety disorder); Alcoholism (HCC) Social History Tobacco Use Types [...] st Contact Info) Description 09/26/2024 10:30 AM TEXTILE CHEMIST Office Visit [facility] Primary Care [address] [address] Joanna Mckeon NP [address] [address] documented as of this encounter Visit Diagnoses Diagnosis IGGY (generalized anxiety disorder) Generalized anxiety disorder Alcoholism (HCC) Other and unspecified alcohol dependence, unspecified drinking behavior documented in this encounter Care Teams Trial Judge Relationship Specialty Start Date End Date Joanna Mckeon NP PCP - General Nurse Practitioner Family 07/13/23 documented as of this encounter
--- OUTSIDE RECORDS SUMMARY | 2024-08-23 12:21 | XMS_ITS | Encounter Summary ---
Author Organization [facility] Address [address] [place] [address] Care Team Providers Care Tie Inspector Name Role Phone Joanna Mckeon SHEEP CLIPPER Primary Care Provider +1- [phone] Reason for Visit * Reason Comments ER Follow-up ER follow up for bro chad right ankle. Encounter Details Date Type Department Care Team (Late st Contact Info) Description 08/14/2024 12:00 PM SENIOR NET APPLICATION DEVELOPER Office Visit [facility] Primary Care [address] [place] [phone] Joanna Mckeon NP [address] [place] [address] Closed fracture of distal end of right fibula, unspecified fracture morphology, initial encounter (Primary Dx) Social History Tobacco Use Types Packs/Day Years Used Date Smoking Tobacco: Every Day Cigarettes Passive Smoke Exposure: Past Smokeless Tobacco: Former Chew Quit: 2022 Tobacco Cessation:Ready to Q uit: No; Counseling Given: Yes Alcohol Use Standard Drinks/Week [...] Reading Time Taken Comments Blood Pressure 128/76 08/14/2024 12:15 PM SENIOR NET APPLICATION DEVELOPER Pulse 93 08/14/2024 12:15 PM SENIOR NET APPLICATION DEVELOPER Temperature 36.6 ??C (97.8 ??F) 08/14/2024 12:[address] Respiratory Rate 18 08/14/2024 12:15 PM SENIOR NET APPLICATION DEVELOPER Oxygen Saturation 97% 08/14/2024 12:15 PM SENIOR NET APPLICATION DEVELOPER Inhaled Oxygen Concentration - - Weight - - Height - - Body Mass Index - - documented in this encounter Progress Notes * oJanna Mckeon NP - 08/14/2024 12:00 PM CST Images from the original note were not included. Patient ID: John Veliz is a 54 y.o. male : 1970 Subjective Chief Complaint Patient presents with ER Follow-up ER follow up for broken right ankle. HPI Here for ER follow up. Fell at home in the bathroom on a wet floor. States he slipped, ankle went under him and he fell hitting head on toilet. Has bruising around right eye and at the bridge of the nose. X-ray shows fracture of distal fibula. I have reviewed, and updated if necessary, the history (chief complaint, review of systems, past medical, family and social history, history of present illness) documented by ancillary staff, and/or the beneficiary. The following have been reviewed and updated as appropriate in this visit: Tobacco Allergies Meds Problems Med Hx Surg Hx Fam Hx Review of Systems Musculoskeletal: Positive for arthralgias, gait problem and joint swelling. Skin: Positive for color change. Objective Vitals Vitals: 08/14/24 1215 BP: 128/76 Pulse: 93 Resp: 18 Temp: 97.8 ??F (36.6 ??C) SpO2: 97% PainSc: 7 There is no height or weight on file to calculate BMI. Physical Exam Constitutional: Appearance: Normal appearance. Cardiovascular: Rate and Rhythm: Normal rate and regular rhythm. Heart sounds: Normal heart sounds. Pulmonary: Effort: Pulmonary effort is normal. Breath sounds: Normal breath sounds. Musculoskeletal: Comments: Right lower leg in splint, toes with good color and normal capillary refill Skin: General: Skin is warm and dry. Findings: Abrasion and ecchymosis present. Comments: Abrasion on bridge of nose, bruising around right eye Neurological: General: No focal deficit present. Mental Status: He is alert and oriented to person, place, and time. Assessment/Plan John was seen today for er follow-up. Diagnoses and all orders for this visit: Closed fracture of distal end of right fibula, unspecified fracture morphology, initial encounter Comments: 3 mm displacement Reviewed ER report, CT of head and neck and x-ray report of ankle. Discussed that he needs to see Ortho. He has an appointment scheduled for at [facility] on August 21. After he left clinic he called to say he was going to a Walk [facility] Clinic in [facility]. He has family there and states prefers to have surgery there if needed. We discussed that he needs to remain non weight bearing and keep splint on. Return as needed, for Next scheduled follow-up. There are no Patient Instructions on file for this visit. Call with any issues. Return if not improving or if worsening. John voice(s) understanding and agreement with plan of care. Electronically Signed By: Joanna Mckeon NP 08/17/24 8:23 PM Statement for coding/billing: After evaluating the complexity of problems & data addressed, social determinants of health, and management options selected today, I believe the patient's risk of complication and/or morbidity or mortality to be minimal. OR NET APPLICATION DEVELOPER documented in this encounter Plan of Treatment Upcoming Encounters Date Type Department Care Team (Late st Contact Info) Description 09/26/2024 10:30 AM SENIOR NET APPLICATION DEVELOPER Office Visit [facility] Primary Care [address] [place] [phone] Joanna Mckeon NP [address] [place] [address] [address] [place] [address] documented as of this encounter Visit Diagnoses Diagnosis Closed fracture of distal end of right fibula, unspecified fracture morphology, initial encounter- Primary documented in this encounter Care Teams Tie Inspector Relationship Specialty Start Date End Date Joanna Mckeon NP PCP - General Nurse Practitioner Family 07/13/23 documented as of this encounter
--- OUTSIDE RECORDS SUMMARY | 2024-08-23 12:21 | XMS_ITS | Encounter Summary ---
Author Organization [facility] Address [address] [place] [address] Care Team Providers Care Hedis Nurse Name Role Phone Joanna Mckeon FINANCE EXECUTIVE Primary Care Provider +1- [phone] Reason for Visit * Reason Comments Hypertension 3mo, not due to till next week but will be out of town next week. Encounter Details Date Type Department Care Team (Late st Contact Info) Description 03/29/2024 10:30 AM CDT Office Visit [facility] Primary Care [address] [place] [phone] Joanna Mckeon NP [address] [place] [address] [address] [place], [place] [address] Sharri Watson NP [address] [place] [address] [address] [place], [place] [phone] Hypertension, unspecified type (Primary Dx); IGGY (generalized anxiety disorder); Alcoholism (HCC); Smoker Social History Tobacco Use Types Packs/Day Years [...] Sign Reading Time Taken Comments Blood Pressure 142/80 03/29/2024 10:45 AM CDT Pulse 87 03/29/2024 10:45 AM CDT Temperature 36.9 ??C (98.4 ??F) 03/29/2024 10:45 AM C DT Respiratory Rate 18 03/29/2024 10:45 AM CDT Oxygen Saturation 96% 03/29/2024 10:45 AM CDT Inhaled Oxygen Concentration - - Weight 77.6 kg (171 lb) 03/29/2024 10:45 AM CDT Height 177.8 cm (5' 10 ) 03/29/2024 10:45 AM CDT Body Mass Index 24.54 03/29/2024 10:45 AM CDT documented in this encounter Patient Instructions * Attachments The following attachments cannot be sent through Care Everywhere. * Managing Anxiety Adult (Kiswahili) * DASH Eating Plan (Kiswahili) * SMOKING CESSATION, TIPS FOR SUCCESS ([place]) documented in this encounter Progress Notes * Sharri Watson NP - 03/29/2024 10:30 AM CDT Images from the original note were not included. Patient ID: John Veliz is a 53 y.o. male : 1970 Subjective Chief Complaint Patient presents with Hypertension 3mo, not due to till next week but will be out of town next week. HPI As above. I have reviewed, and updated if necessary, [...] The patient is nervous/anxious. Objective Vitals Vitals: 03/29/24 1045 BP: (!) 142/80 Pulse: 87 Resp: 18 Temp: 36.9 ??C (98.4 ??F) SpO2: 96% Weight: 77.6 kg (171 lb) Height: 70 PainSc: 0-No pain Body mass index is 24.54 kg/m??. Physical Exam Vitals and nursing note reviewed. Constitutional: General: He is not in acute distress. Cardiovascular: Rate and Rhythm: Normal rate and regular rhythm. Heart sounds: Normal heart sounds. Pulmonary: Effort: Pulmonary effort is normal. Breath sounds: Normal breath sounds. Abdominal: General: Bowel sounds are normal. Palpations: Abdomen is soft. Neurological: Mental Status: He is alert. Psychiatric: Mood and Affect: Mood normal. Behavior: Behavior normal. Thought Content: Thought content normal. Judgment: Judgment normal. Assessment/Plan John was seen today for hypertension. Diagnoses and all orders for this visit: Hypertension, unspecified type (Chronic) - lisinopriL 10 mg tablet; Take 1 tablet (10 mg total) by mouth daily IGGY (generalized anxiety disorder) - ALPRAZolam (XANAX) 0.5 mg tablet; Take 1 tablet (0.5 mg total) by mouth 3 (three) times a day as needed for anxiety - buPROPion XL (Wellbutrin XL) 150 mg 24 hr tablet; Take 1 tablet (150 mg total) by mouth daily Alcoholism (HCC) (Chronic) - naltrexone (DEPADE) 50 mg tablet; Take 1 tablet (50 mg total) by mouth daily Smoker Return in about 3 months (around 06/29/2024). There are no Patient Instructions on file for this visit. Call with any issues. Return if not improving or if worsening. John voice(s) understanding and agreement with plan of care. Electronically Signed By: Sharri Watson NP 03/29/24 11:47 AM Statement for coding/billing: After evaluating the complexity of problems & data addressed, social determinants of health, and management options selected today, I believe the patient's risk of complication and/or morbidity or mortality to be moderate. documented in this encounter Plan of Treatment Upcoming Encounters Date Type Department Care Team (Late st Contact Info) Description 09/26/2024 10:30 AM THIRD SHIFT LIEUTENANT Office Visit [facility] Primary Care [address] [place] [address] Joanna Mckeon NP [address] [place] [address] [address] [place] [address] documented as of this encounter Visit Diagnoses Diagnosis Hypertension, unspecified type- Primary IGGY (generalized anxiety disorder) Generalized anxiety disorder Alcoholism (HCC) Other and unspecified alcohol dependence, unspecified drinking behavior Smoker Tobacco use disorder documented in this encounter Care Teams Hedis Nurse Relationship Specialty Start Date End Date Joanna Mckeon NP PCP - General Nurse Practitioner Family 07/13/23 documented as of this encounter
--- OUTSIDE RECORDS SUMMARY | 2024-08-23 12:21 | XMS_ITS | Encounter Summary ---
Author Organization [facility] Address [address] [place] [address] Care Team Providers Care Pack Press Operator Name Role Phone Joanna Mckeon NP Primary Care Provider +1- [phone] Reason for Visit * Reason Comments Hypertension Pt here for 3 month check on his hypertension. Checks at home. GITA Pt here for anxiety disorder recheck. May needs refills. ED Pt here to get his t estosterone injection. Encounter Details Date Type Department Care Team (Late st Contact Info) Description 06/26/2024 11:00 AM CDT Office Visit [facility] Primary Care [address] [place] [address] Joanna Mckeon NP [address] [place] [address] Hypertension, unspecified type (Primary Dx); Alcoholism (HCC); GITA (generalized anxiety disorder); Dental abscess; Testosterone deficiency Social History Tobacco Use Types [...] Sign Reading Time Taken Comments Blood Pressure 124/72 06/26/2024 11:19 AM CDT Pulse 70 06/26/2024 11:19 AM CDT Temperature 36.8 ??C (98.2 ??F) 06/26/2024 11:19 AM C DT Respiratory Rate 18 06/26/2024 11:19 AM CDT Oxygen Saturation 97% 06/26/2024 11:19 AM CDT Inhaled Oxygen Concentration - - Weight 86.2 kg (190 lb) 06/26/2024 11:19 AM CDT Height 177.8 cm (5' 10 ) 06/26/2024 11:19 AM CDT Body Mass Index 27.26 06/26/2024 11:19 AM CDT documented in this encounter Progress Notes * Joanna Mckeon NP - 06/26/2024 11:00 AM CDT Patient ID: John Veliz is a 54 y.o. male : 1970 Subjective Chief Complaint Patient presents with Hypertension Pt here for 3 month check on his hypertension. Checks at home. GITA Pt here for anxiety disorder recheck. May needs refills. ED Pt here to get his testosterone injection. Hypertension This is a chronic problem. The current episode started more than 1 year ago. Associated symptoms include anxiety. Pertinent negatives include no chest pain, palpitations or shortness of breath. Erectile Dysfunction This is a chronic problem. Non-physiologic factors contributing to erectile dysfunction are anxiety. Pertinent negatives include no chills. Anxiety Symptoms include nervous/anxious behavior. Patient reports no chest pain, nausea, palpitations or shortness of breath. He is experiencing dental pain in back right upper area I have reviewed, and updated if necessary, the history (chief complaint, review of systems, past medical, family and social history, history of present illness) documented by ancillary staff, and/or the beneficiary. The following have been reviewed and updated as appropriate in this visit: Tobacco Allergies Meds Problems Med Hx Surg Hx Fam Hx Review of Systems Constitutional: Negative for chills, fatigue and fever. HENT: Positive for dental problem. Respiratory: Negative for cough, chest tightness and shortness of breath. Cardiovascular: Negative for chest pain, palpitations and leg swelling. Gastrointestinal: Negative for abdominal pain and nausea. Skin: Negative for color change. Psychiatric/Behavioral: The patient is nervous/anxious. Objective Vitals Vitals: 06/26/24 1119 BP: 124/72 BP Location: Left arm Patient Position: Sitting Pulse: 70 Resp: 18 Temp: 36.8 ??C (98.2 ??F) TempSrc: Temporal SpO2: 97% Weight: 86.2 kg (190 lb) Height: 70 Body mass index is 27.26 kg/m??. Physical Exam Vitals and nursing note reviewed. Constitutional: General: He is not in acute distress. Appearance: Normal appearance. HENT: Head: Normocephalic. Right Ear: Tympanic membrane normal. Left Ear: Tympanic membrane normal. Nose: Nose normal. No congestion. Mouth/Throat: Dentition: Abnormal dentition. Dental tenderness, dental caries and dental abscesses present. Pharynx: No posterior oropharyngeal erythema. Cardiovascular: Rate and Rhythm: Normal rate and [...] normal. Assessment/Plan John was seen today for hypertension, gita and ed. Diagnoses and all orders for this visit: Hypertension, unspecified type - lisinopriL 10 mg tablet; Take 1 tablet (10 mg total) by mouth daily Alcoholism (HCC) - naltrexone (DEPADE) 50 mg tablet; Take 1 tablet (50 mg total) by mouth daily GITA (generalized anxiety disorder) - ALPRAZolam (XANAX) 0.5 mg tablet; Take 1 tablet (0.5 mg total) by mouth 3 (three) times a day as needed for anxiety - buPROPion XL (Wellbutrin XL) 150 mg 24 hr tablet; Take 1 tablet (150 mg total) by mouth daily Dental abscess - amoxicillin (AMOXIL) 875 mg tablet; Take 1 tablet (875 mg total) by mouth 2 (two) times a day for10 days Testosterone deficiency - testosterone cypionate (DEPO-TESTOSTERONE) 200 mg/mL injection 200 mg Declines Flu Shot Return in about 3 months (around 09/26/2024), or if symptoms worsen or fail to improve. There are no Patient Instructions on file for this visit. Call with any issues. Return if not improving or if worsening. John voice(s) understanding and agreement with plan of care. Electronically Signed By: Joanna Mckeon NP 06/26/24 7:37 PM Statement for coding/billing: After evaluating the complexity of problems & data addressed, social determinants of health, and management options selected today, I believe the patient's risk of complication and/or morbidity or mortality to be moderate. documented in this encounter Plan of Treatment Upcoming Encounters Date Type Department Care Team (Late st Contact Info) Description 09/26/2024 10:30 AM MACHINE PULLER AND LASTER Office Visit [facility] Primary Care [place] [address] [place] [phone] Joanna Mckeon NP [address] [place] [address] [address] [place] [address] documented as of this encounter Visit Diagnoses Diagnosis Hypertension, unspecified type- Primary Alcoholism (HCC) Other and unspecified alcohol dependence, unspecified drinking behavior GITA (generalized anxiety disorder) Generalized anxiety disorder Dental abscess Periapical abscess without sinus Testosterone deficiency Other testicular hypofunction documented in this encounter Administered Medications Inactive Administered Medications - up to 3 most recent administrations Medication Order MAR Action Action Date Dose Rate Site testosterone cypionate (DEPO-TESTOSTERONE) 200 mg/mL injection 200 mg 200 mg, intramuscular, Once, On Wed06/26/24 at 1200, For 1 dose, For IM injection only.Indications:Testost erone deficiency Given 06/26/2024 11:45 AM CDT 200 mg Right Dorsogluteal documented in this encounter Care Teams Pack Press Operator Relationship Specialty Start Date End Date Joanna Mckeon NP PCP - General Nurse Practitioner Family 07/13/23 documented as of this encounter
--- OUTSIDE RECORDS SUMMARY | 2024-08-23 12:21 | XMS_ITS | Encounter Summary ---
Author Organization [facility] Address [address] [place] [address] Care Team Providers Care Financial Reserve Clerk Name Role Phone Joanna Mckeon NP Primary Care Provider +1- [phone] Encounter Details Date Type Department Care Team (Late st Contact Info) Description 08/15/2024 Telephone [facility] Family Medicine [address] [place] [address] Joanna Mckeon NP [address] [place] [address] Social History Tobacco Use Types [...] Telephone Encounter - Velvet Anderson LPN - 08/15/2024 3:56 PM CST Provider notified Velvet Anderson lpn [employer] * Telephone Encounter - Riya Kwok - 08/15/2024 3:08 PM CST John called to leave a message that he is going to [facility] for a walk in clinic. [employer] documented in this encounter Plan of Treatment Upcoming Encounters Date Type Department Care Team (Late st Contact Info) Description 09/26/2024 10:30 AM [employer]IP [employer]OC Office Visit [facility] Primary Care [address] [place] [phone] Joanna Mckeon NP [address] [place] [address] documented as of this encounter Visit Diagnoses Not on filedocumented in this encounter Care Teams Financial Reserve Clerk Relationship Specialty Start Date End Date Joanna Mckeon NP PCP - General Nurse Practitioner Family 07/13/23 documented as of this encounter
--- OUTSIDE RECORDS SUMMARY | 2024-08-23 12:21 | XMS_ITS | Encounter Summary ---
Author Organization [facility] Address [address] [place] [address] Care Team Providers Care Vp Analytics Name Role Phone Joanna Mckeon SHOW CARD WRITER Primary Care Provider +1- [phone] Reason for Visit * Reason Onset Date Comments Results 05/17/2024 Encounter Details Date Type Department Care Team (Late st Contact Info) Description 05/17/2024 Telephone [facility] Primary Care [address] [place] [phone] Velvet Anderson LPN Results Social History Tobacco Use Types Packs/Day [...] Telephone Encounter - Velvet Anderson LPN - 05/17/2024 9:14 AM CDT Pt notified he will pickle cutter vit d otc and he will watch his diet and recheck triglycerides at next appt. Velvet Anderson lpn * Telephone Encounter - Velvet Anderson LPN - 05/17/2024 9:14 AM CDT ----- Message from Velvet Ackerman LPN sent at 05/17/2024 9:04 AM CDT ----- No answer Velvet Anderson lpn ----- Message ----- From: Joanna Mckeon NP Sent: 05/16/2024 10:12 PM CDT To: [facility] Please call with lab results, needs to take vitamin D 3 1000 units daily * Telephone Encounter - Velvet Anderson LPN - 05/17/2024 9:12 AM CDT Pt notified he will get vit d and * Telephone Encounter - Velvet Anderson LPN - 05/17/2024 9:12 AM CDT ----- Message from Velvet Ackerman LPN sent at 05/17/2024 9:04 AM CDT ----- No answer Velvet Anderson lpn ----- Message ----- From: Joanna Mckeon NP Sent: 05/16/2024 10:12 PM CDT To: [facility] Please call with lab results, needs to take vitamin D 3 1000 units daily documented in this encounter Plan of Treatment Upcoming Encounters Date Type Department Care Team (Late st Contact Info) Description 09/26/2024 10:30 AM SPIRAL WINDING MACHINE HELPER Office Visit [facility] Primary Care [address] [place] [phone] Joanna Mckeon NP [address] [place] [address] documented as of this encounter Visit Diagnoses Not on filedocumented in this encounter Care Teams Vp Analytics Relationship Specialty Start Date End Date Joanna Mckeon NP PCP - General Nurse Practitioner Family 07/13/23 documented as of this encounter
--- OUTSIDE RECORDS SUMMARY | 2024-08-23 12:21 | XMS_ITS | Encounter Summary ---
Author Organization [facility] Address [address] [place] [address] Care Team Providers Care General Utility Worker Name Role Phone Joanna Mckeon CAMP TENDER Primary Care Provider +1- [phone] Encounter Details Date Type Department Care Team (Late Contact Info) Description 07/05/2024 Telephone [facility] Family Medicine [address] [place] [address] Joanna Mckeon NP [address] [place] [address] Social History Tobacco Use Types [...] Telephone Encounter - Velvet Anderson LPN - 07/05/2024 2:34 PM CDT Sent to provider to fill. * Telephone Encounter - Sharri Ordaz - 07/05/2024 1:29 PM CDT Valtrex 1 gram to Renetta Sinha documented in this encounter Plan of Treatment Upcoming Encounters Date Type Department Care Team (Late st Contact Info) Description 09/26/2024 10:30 AM EMERGENCY DEPT TECH Office Visit [facility] Primary Care [address] [place] [address] Joanna Mckeon NP [address] [place] [address] [address] [place] [address] documented as of this encounter Visit Diagnoses Not on filedocumented in this encounter Care Teams General Utility Worker Relationship Specialty Start Date End Date Joanna Mckeon NP PCP - General Nurse Practitioner Family 07/13/23 documented as of this encounter
--- OUTSIDE RECORDS SUMMARY | 2024-08-23 12:21 | XMS_ITS | Encounter Summary ---
Author Organization [facility] Address [address] [place] [address] Care Team Providers Care Almond Cutting Machine Tender Name Role Phone Joanna Mckeon NP Primary Care Provider +1- [phone] Reason for Visit * Reason Comments Med Refill Encounter Details Date Type Department Care Team (Late st Contact Info) Description 10/06/2023 [facility]ill [facility] Primary Care [place] [address] [place] [phone] Joanna Mckeon NP [address] [place] [address] Hypertension, unspecified type; Depression, unspecified depression type Social History Tobacco Use Types Packs/Day [...] st Contact Info) Description 09/26/2024 10:30 AM CAREER RESOURCE TECHNICIAN Office Visit [facility] Primary Care [place] [address] [place] [address] Joanna Mckeon NP [address] [place] [address] documented as of this encounter Visit Diagnoses Diagnosis Hypertension, unspecified type Depression, unspecified depression type documented in this encounter Care Teams Almond Cutting Machine Tender Relationship Specialty Start Date End Date Joanna Mckeon NP PCP - General Nurse Practitioner Family 07/13/23 documented as of this encounter
--- OUTSIDE RECORDS SUMMARY | 2024-08-23 12:21 | XMS_ITS | Encounter Summary ---
Author Organization [facility] Address [address] [place] [address] Care Team Providers Care Deicer Repairer Name Role Phone Joanna Mckeon NP Primary Care Provider +1- [phone] Reason for Visit * Reason Comments Hypertension Pt here for htn chec k. Depression Pt here for depressi on check. He would like to increase the Wellbutrin to 150mg daily. Encounter Details Date Type Department Care Team (Late st Contact Info) Description 02/14/2024 4:15 PM CDT Office Visit [facility] Primary Care [address] [place] [address] Joanna Mckeon NP [address] [place] [address] IGGY (generalized anxiety disorder) (Primary Dx) Social [...] Sign Reading Time Taken Comments Blood Pressure 148/90 02/14/2024 4:31 PM CDT Pulse 92 02/14/2024 4:31 PM CDT Temperature 37 ??C (98.6 ??F) 02/14/2024 4:31 PM CDT Respiratory Rate 18 02/14/2024 4:31 PM CDT Oxygen Saturation 98% 02/14/2024 4:31 PM CDT Inhaled Oxygen Concentration - - Weight 78.9 kg (174 lb) 02/14/2024 4:31 PM CDT Height 177.8 cm (5' 10 ) 02/14/2024 4:31 PM CDT Body Mass Index 24.97 02/14/2024 4:31 PM CDT documented in this encounter Progress Notes * Joanna Mckeon, ZIGGY - 02/14/2024 4:15 PM CDT Images from the original note were not included. Patient ID: John Veliz is a 53 y.o. male : 1970 Subjective Chief Complaint Patient presents with Hypertension Pt here for htn check. Depression Pt here for depression check. He would like to increase the Wellbutrin to 150mg daily. Hypertension This is a chronic problem. The current episode started more than 1 year ago. Associated symptoms include anxiety. Pertinent negatives include no chest pain, headaches, palpitations, peripheral edema or shortness of breath. Depression Associated symptoms: no abdominal pain, no chest pain, no congestion, no cough, no fever, no headaches, no nausea, no rash, no rhinorrhea, no shortness of breath and no sore throat Anxiety Presents for follow-up visit. Symptoms include nervous/anxious behavior. Patient reports no chest pain, nausea, palpitations, shortness of breath or suicidal ideas. Back Pain This is a chronic problem. The current episode started more than 1 year ago. The pain is present inthe lumbar spine and sacro-iliac. The pain does not radiate. Pertinent negatives include no abdominal pain, chest pain, fever, headaches or weakness. Has been checking BP at home and states it has been in the 130's/70's. BP is elevated today. Stateshe smoked a cigarette right before BP was taken and he left his Xanax at work in [place]. He is feeling more anxious without his medication and also has been having stress with his Dad. I have reviewed, and updated if necessary, [...] The patient is nervous/anxious. Objective Vitals Vitals: 02/14/24 1631 BP: (!) 148/90 BP Location: Left arm Patient Position: Sitting Pulse: 92 Resp: 18 Temp: 37 ??C (98.6 ??F) TempSrc: Temporal SpO2: 98% Weight: 78.9 kg (174 lb) Height: 70 Body mass index is 24.97 kg/m??. Physical Exam Vitals and nursing note [...] John was seen today for hypertension and depression. Diagnoses and all orders for this visit: IGGY (generalized anxiety disorder) - buPROPion XL (Wellbutrin XL) 150 mg 24 hr tablet; Take 1 tablet (150 mg total) by mouth daily - ALPRAZolam (XANAX) 0.5 mg tablet; Take 1 tablet (0.5 mg total) by mouth 3 (three) times a day as needed for anxiety Return if symptoms worsen or fail to improve, for Next scheduled follow-up. There are no Patient Instructions on file for this visit. Call with any issues. Return if not improving or if worsening. John voice(s) understanding and agreement with plan of care. Electronically Signed By: Joanna Mckeon NP 02/18/24 12:02 AM Statement for coding/billing: After evaluating the complexity of problems & data addressed, social determinants of health, and management options selected today, I believe the patient's risk of complication and/or morbidity or mortality to be moderate. * Yousuf Peguero MD - 02/14/2024 4:15 PM CDT I have reviewed the notes, assessments, and/or procedures performed this visit, and I concur with the documentation. documented in this encounter Plan of Treatment Upcoming Encounters Date Type Department Care Team (Late st Contact Info) Description 09/26/2024 10:30 AM TRAFFIC ANALYST Office Visit [facility] Primary Care [address] [place] [phone] Joanna Mckeon NP [address] [place] [address] [address] [place] [address] documented as of this encounter Visit Diagnoses Diagnosis IGGY (generalized anxiety disorder)- Primary Generalized anxiety disorder documented in this encounter Care Teams Deicer Repairer Relationship Specialty Start Date End Date Joanna Mckeon NP PCP - General Nurse Practitioner Family 07/13/23 documented as of this encounter
--- OUTSIDE RECORDS SUMMARY | 2024-08-23 12:21 | XMS_ITS | Clinical Summary ---
Author Organization [facility] Address [address] [place] [address] Care Team Providers Care Financial Service Rep Name Role Phone Joanna Mckeon CLINICAL CODER Primary Care Provider [phone]- [phone] Allergies Active Allergy Reactions Criticality Noted Date Comments Codeine 11/17/2009 Other reaction(s): Itching Pt states he feels hot, itchy, and he vomits. Medications omeprazole (PriLOSEC) 40 mg capsule Take 1 capsule (40 mg total) by mouth as needed Active cholecalciferol , vitamin D3, 10 mcg (400 unit) capsule Take 5,000 Units by mouth daily Active needle, disp, 18 G 18 gauge x 1 needle Use as directed Acti ve tadalafiL (CIALIS) 20 mg tabletIndicatio ns:Erectile dysfunction, unspecified erectile dysfunction type Take 1 tablet (20 mg total) by mouth daily as needed for erectile dysfunction Gets filled at [facility]. 60 tablet 2 4 Active testosterone cypionate (DEPO-TESTOSTER ONE) 200 mg/mL injectionIndica tions:Testoster one deficiency Inject 1 mL (200 mg total) into a large muscle every 14 (fourteen) days 2 mL 2 4 09/09/19 26 Active clomiPHENE (CLOMID) 50 mg tabletIndicatio ns:Testosterone deficiency Take 1 tablet (50 mg total) by mouth once a week Gets filled at [facility] 10 tablet 1 4 Active naltrexone (DEPADE) 50 mg tabletIndicatio ns:Alcoholism (HCC) Take 1 tablet (50 mg total) by mouth daily 30 tablet 2 4 Active ALPRAZolam (XANAX) 0.5 mg tabletIndicatio ns:IGGY (generalized anxiety disorder) Take 1 tablet (0.5 mg total) by mouth 3 (three) times a day as needed for anxiety 90 tablet 2 4 Active lisinopriL 10 mg tabletIndicatio ns:Hypertension , unspecified type Take 1 tablet (10 mg total) by mouth daily 30 tablet 2 4 Active buPROPion XL (Wellbutrin XL) 150 mg 24 hr tabletIndicatio ns:IGGY (generalized anxiety disorder) Take 1 tablet (150 mg total) by mouth daily 30 tablet 3 4 Active HYDROcodone-constance taminophen (NORCO) 7.5-325 mg per tablet Take 1 tablet by mouth every 4 (four) hours as needed 4 08/15/20 24 Active Problems Problem Noted Date Diagnosed Date Dizziness 07/06/2023 07/13/2023 Overview (07/13/2023): Last Assessment & Plan: 53-year-old male with a history of HTN, [...] Gastroesophageal reflux disease without esophagi tis 06/02/2023 07/13/2023 Overview (07/13/2023): Last Assessment & Plan: Patient with history of GERD. Currently on omeprazole 40 mg p.o. daily. Says he is doing well. Controlled Continue same Depression 04/07/2023 07/13/2023 Overview (07/13/2023): Last Assessment & Plan: Patient brings in note from Dr. Regis [...] short-term follow-up for recheck Nicotine dependence 04/07/2023 07/13/2023 Overview (07/13/2023): Last Assessment & Plan: Started smoking at age 19 Up to 1/5 PPD. Quit at 21. Then back on @ age 31. Quit again at age 44. Started back when last few months. Add Wellbutrin. Patient given information on how to quit smoking. Have short-term follow-up. Hypertension 03/11/2023 07/13/2023 Overview (07/13/2023): Last Assessment & Plan: 53 y.o. male presents to clinic for [...] a few days prior to next appointment. Testosterone deficiency 09/21/2022 07/13/20 Overview (07/13/2023): Last Assessment & Plan: Currently on Depo testosterone 200 milligram/mL 1 mL q.12 days and Clomid 50 mg TIW. Patient had been seen neurologist in [facility]. Had started seeing Cody Simms at this facility for awhile. Cody is currently no longer available. Patient is willing to reestablish with urology but would like to do so closer to home. Continue same at present. Referral to urology Chronic prescription benzodiazepine use 03/25/20 22 Male hypogonadism 05/05/2021 07/13/2023 Overview (07/13/2023): Last Assessment & Plan: Patient is being followed by Dr. Deluna [...] understanding. Continue to follow with Dr. Deluna. Dyslipidemia 12/13/2017 07/13/2023 Overview (07/13/2023): Last Assessment & Plan: Patient with history of hyperlipidemia. Currently trying [...] few days prior to his next appointment Hypovitaminosis D 12/13/2017 07/13/2023 Overview (07/13/2023): Last Assessment & Plan: Vitamin D 25-Hydroxy Date Value Ref Range Status 10/17/2022 30.00 - 100.00 mg/dL Final 39.9 <20 Deficient 20-29 Insufficient 30-100 Sufficient >100 Upper Safety Limit Currently on vitamin-D 5000 IU daily. Denies any adverse side effects to current medication regimen continue same Family history of diabetes mellitus 12/13/2017 09/02/2023 IGGY (generalized anxiety disorder) 08/09/2014 07/13/2023 Overview (07/13/2023): Last Assessment & Plan: Patient with longstanding history of generalized anxiety [...] Detection window not available for oral secretions. Encounters Date Type Department Care Team Description 08/15/[address] [phone] Joanna Mckeon NP 08/14/2024 12:00 PM SERVICE COORDINATOR Office Visit [address] [phone] Joanna Mckeon NP Closed fracture of distal end of right fibula, unspecified fracture morphology, initial encounter (Primary Dx) 07/05/[address] [phone] Velvet Anderson LPN Hx of disseminated herpes zoster infection 07/05/[address] [phone] Joanna Mckeon NP 06/26/2024 11:00 AM CDT Office Visit [address] [phone] Joanna Mckeon NP Hypertension, unspecified type (Primary Dx); Alcoholism (HCC); IGGY (generalized anxiety disorder); Dental abscess; Testosterone deficiency 06/14/2024 2:30 PM CDT Clinical Support [address] [phone] Nurse, [facility] Male hypogonadism (Primary Dx) 05/26/2024 Refill [facility] Primary Care [address] [place] [phone] Sharri Watson NP IGGY (generalized anxiety disorder) from Last 3 Months Immunizations Name Administration Dates Next Due Tdap 09/08/2022,10/14/2013 Social History Tobacco Use Types Packs/Day Years [...] Comments Blood Pressure 128/76 08/14/2024 12:15 PM SERVICE COORDINATOR Pulse 93 08/14/2024 12:15 PM SERVICE COORDINATOR Temperature 36.6 ??C (97.8 ??F) 08/14/2024 12:[address] Respiratory Rate 18 08/14/2024 12:15 PM SERVICE COORDINATOR Oxygen Saturation 97% 08/14/2024 12:15 PM SERVICE COORDINATOR Inhaled Oxygen Concentration - - Weight 86.2 kg (190 lb) 06/26/2024 11:19 AM CDT Height 177.8 cm (5' 10 ) 06/26/2024 11:19 AM CDT Body Mass Index 27.26 06/26/2024 11:19 AM CDT Plan of Treatment Upcoming Encounters Date Type Department Care Team (Late st Contact Info) Description 09/26/2024 10:30 AM SERVICE COORDINATOR Office Visit [facility] Primary Care [address] [facility] [place] [phone] Joanna Mckeon NP [address] [place] [address] [address] [place], [place] [phone] Health Maintenance Due Date Last Done Comments CT Colonography 1972 Colorectal Cancer Screening 1970 FIT-DNA 1970 FIT 1970 FOBT 1970 Sigmoidoscopy 1972 MMR Vaccines (1 of 1 - Standard series) 1973 AMB Pneumococcal 0-64 yrs (1 of 2 - PCV) 1978 Varicella Vaccines (1 of 2 - 13+ 2-dose series) 1985 Hepatitis B Vaccines (1 of 3 - 19+ 3-dose series) 1991 DTaP,Tdap,and Td Vaccines (3 - Td or Tdap) 03/08/2023 09/08/2022, 10/14/2013 Influenza Vaccine (#1) 2024 Colonoscopy 04/12/2025 Postponed from 1972 Prostate Cancer Screening PSA 05/11/2026 05/11/2024 RSV Vaccines and 60 Years or Older (1 - 1-dose 75+ series) 2047 COVID-19 Vaccine Discontinued HIB Vaccines Aged Out No longer eligi ble based on patient's age to complete this topic HPV Vaccines Aged Out No longer eligi ble based on patient's age to complete this topic Hepatitis A Vaccines Aged Out No long er eligible based on patient's age to complete this topic IPV Vaccines Aged Out No longer eligi ble based on patient's age to complete this topic Meningococcal ACWY Vaccine Aged Out N o longer eligible based on patient's age to complete this topic RSV Vaccines <20 Months Aged Out No l onger eligible based on patient's age to complete this topic Procedures Procedure Name Priority Date/Time Associated Diagnosis Comments PSA, SCREENING Routine 05/11/2024 9:49 AM CDT Screening for prostate cancer from Last 3 Months or Most Recently Relevant to Health Maintenance Results * PSA, Screening (05/11/2024 9:49 AM CDT) Prostate Specific Antigen 0.64 0.00 - 4.00 ng/mL 05/11/2024 5:35 PM CDT [facility] Blood Venous blood specimen / Unknown Venipuncture / Unknown 05/11/2024 9:49 AM CDT 05/11/2024 9:49 AM CDT Joanna Mckeon NP LAB BLOOD ORDERABLES Final Result [facility] [address] [place] [address], from Last 3 Months or Most Recently Relevant to Health Maintenance Insurance [employer] Care Teams Financial Service Rep Relationship Specialty Start Date End Date Joanna Mckeon NP PCP - General Nurse Practitioner Family 07/13/23
--- OUTSIDE RECORDS SUMMARY | 2024-08-23 12:21 | XMS_ITS | Encounter Summary ---
Author Organization [facility] Address [address] [place] [address] Care Team Providers Care Topology Teacher Name Role Phone Joanna Mckeon SPRAY PAINTER Primary Care Provider [phone]- [phone] Reason for Visit * Reason Comments Med Refill Encounter Details Date Type Department Care Team (Late st Contact Info) Description 05/26/2024 Refill [facility] Primary Care [place] [address] [facility] [address] [place] [phone] Sharri Watson NP [address] [place] [id number] IGGY (generalized anxiety disorder) Social History Tobacco [...] encounter Miscellaneous Notes * Telephone Encounter - Riya Kwok - 05/26/2024 1:50 PM CDT John called asking for syringes & needles for Testerone sent to [facility] in [place]. Draw out needle is 18g and the injection one is 23g 1 inch needle. Callback #[phone]. documented in this encounter Plan of Treatment Upcoming Encounters Date Type Department Care Team (Late st Contact Info) Description 09/26/2024 10:30 AM SUPERVISING PRODUCER Office Visit [facility] Primary Care [place] [address] [facility] [address] [place] [phone] Joanna Mckeon NP [address] [place] [address] documented as of this encounter Visit Diagnoses Diagnosis IGGY (generalized anxiety disorder) Generalized anxiety disorder documented in this encounter Care Teams Topology Teacher Relationship Specialty Start Date End Date Joanna Mckeon NP PCP - General Nurse Practitioner Family 07/13/23 documented as of this encounter
--- OUTSIDE RECORDS SUMMARY | 2024-08-23 12:21 | XMS_ITS | Encounter Summary ---
Author Organization [facility] Address [address] [place] [address] Care Team Providers Care Commercial Litigation Attorney Name Role Phone Joanna Mckeon WELDER APPRENTICE COMBINATION Primary Care Provider +1- [phone] Reason for Visit * Reason Onset Date Comments Med Refill 07/05/2024 Encounter Details Date Type Department Care Team (Late st Contact Info) Description 07/05/2024 Refill [facility] Primary Care [place] [address] [place] [phone] Velvet Anderson LPN Hx of disseminated herpes zoster infection Social [...] st Contact Info) Description 09/26/2024 10:30 AM COST AND SALES RECORD SUPERVISOR Office Visit [facility] Primary Care [address] [place] [phone] Joanna Mckeon NP [address] [place] [address] [address] [place] [address] documented as of this encounter Visit Diagnoses Diagnosis Hx of disseminated herpes zoster infection documented in this encounter Care Teams Commercial Litigation Attorney Relationship Specialty Start Date End Date Joanna Mckeon NP PCP - General Nurse Practitioner Family 07/13/23 documented as of this encounter
--- OUTSIDE RECORDS SUMMARY | 2024-08-23 12:22 | XMS_ITS | Encounter Summary ---
Author Organization [facility] Address [address] [place] [address] Care Team Providers Care Bench Inspector Name Role Phone Joanna Mckeon TECHNICAL INSTRUCTOR Primary Care Provider +1- [phone] Reason for Visit * Reason Comments Medication Problem Pt states he really likes the losartan and it helps with his BP but he said it makes him dizzy and it can make it a little harder to sleep at night. Pt states he is having issues with vertigo and the losartan makes it worse- states it makes him not want to go anywhere. Said sometimes it makes him nauseous or to where he feels like he can't stand up and it also making his anxiety worse. Encounter Details Date Type Department Care Team (Late st Contact Info) Description 07/21/2023 2:15 PM FACILITY ATTENDANT Office Visit [facility] Primary Care [address] [place] [address] Joanna Mckeon NP [address] [place] [address] Dizziness (Primary Dx); Hypertension, unspecified type Social History Tobacco Use Types Packs/Day Years Used Date Smoking Tobacco: Every Day Cigarettes Smokeless Tobacco: Former Chew Quit: 2022 Tobacco Cessation:Ready to Q uit: Not Asked; Counseling Given: Not Answered Sex and Gender Information Value Date Recorded Sex Assigned at Not on file Legal Sex Male 8:17 AM CDT Gender Identity Not on file Sexual Orientation Not on file documented as of this encounter Last Filed Vital Signs Vital Sign Reading Time Taken Comments Blood Pressure 128/82 07/21/2023 2:38 PM FACILITY ATTENDANT Pulse 81 07/21/2023 2:38 PM FACILITY ATTENDANT Temperature 36.9 ??C (98.4 ??F) 07/21/2023 2:38 PM CS T Respiratory Rate 16 07/21/2023 2:38 PM FACILITY ATTENDANT Oxygen Saturation 97% 07/21/2023 2:38 PM FACILITY ATTENDANT Inhaled Oxygen Concentration - - Weight 80.5 kg (177 lb 6.4 oz) 07/21/2023 2:38 P M FACILITY ATTENDANT Height 177.8 cm (5' 10 ) 07/21/2023 2:38 PM FACILITY ATTENDANT Body Mass Index 25.45 07/21/2023 2:38 PM FACILITY ATTENDANT documented in this encounter Patient Instructions * Patient Instructions* Joanna Mckeon NP - 07/21/2023 2:15 PM FACILITY ATTENDANT Stop Losartan LITY ATTENDANT documented in this encounter Progress Notes * Joanna Mckeon NP - 07/21/2023 2:15 PM CST Images from the original note were not included. Patient ID: John Veliz is a 53 y.o. male : 1970 Subjective Chief Complaint Patient presents with ??? Medication Problem Pt states he really likes the losartan and it helps with his BP but he said it makes him dizzy and it can make it a little harder to sleep at night. Pt states he is having issues with vertigo and thelosartan makes it worse- states it makes him not want to go anywhere. Said sometimes it makes him nauseous or to where he feels like he can't stand up and it also making his anxiety worse. HPI As above. Here with complaint of dizziness that he thinks is associated with Losartan. I have reviewed, and updated if necessary, [...] appetite change, chills, fatigue and fever. HENT: Positive for congestion. Negative for rhinorrhea and sore throat. Respiratory: Negative for cough and shortness of breath. Cardiovascular: Negative for chest pain, palpitations and leg swelling. Gastrointestinal: Negative for abdominal pain, diarrhea, nausea and vomiting. Skin: Negative for rash. Allergic/Immunologic: Positive for environmental allergies. Neurological: Positive for dizziness. Negative for seizures and weakness. Psychiatric/Behavioral: Positive for dysphoric mood. Negative for suicidal ideas. The patient is nervous/anxious. Sees Dr Tanner for counseling Objective Vitals Vitals: 07/21/23 1438 BP: 128/82 BP Location: Left arm Patient Position: Sitting Pulse: 81 Resp: 16 Temp: 36.9 ??C (98.4 ??F) TempSrc: Temporal SpO2: 97% Weight: 80.5 kg (177 lb 6.4 oz) Height: 70 PainSc: 0-No pain Body mass index is 25.45 kg/m??. Physical Exam Vitals and nursing note reviewed. Constitutional: General: He is not in acute distress. Appearance: Normal appearance. HENT: Head: Normocephalic. Right Ear: Tympanic membrane normal. Left Ear: Tympanic membrane normal. Nose: Congestion present. Mouth/Throat: Pharynx: No posterior oropharyngeal erythema. Cardiovascular: Rate [...] normal. Assessment/Plan John was seen today for medication problem. Diagnoses and all orders for this visit: Hypertension, unspecified type - lisinopriL 5 mg tablet; Take 1 tablet (5 mg total) by mouth daily - Cancel: EKG; Future - BACK OFFICE EKG COMPLETE Dizziness - BACK OFFICE EKG COMPLETE Continue Physical Therapy Return for Next scheduled follow-up. Patient Instructions Stop Losartan Call with any issues. Return if not improving or if worsening. John voice(s) understanding and agreement with plan of care. Electronically Signed By: Joanna Mckeon NP 07/25/23 6:52 PM Statement for coding/billing: After evaluating the complexity of problems & data addressed, social determinants of health, and management options selected today, I believe the patient's risk of complication and/or morbidity or mortality to be moderate. LITY ATTENDANT documented in this encounter Plan of Treatment Upcoming Encounters Date Type Department Care Team (Late st Contact Info) Description 09/26/2024 10:30 AM FACILITY ATTENDANT Office Visit [facility] Primary Care [address] [facility] [address] [place] [address] Joanna Mckeon NP [address] [place] [address] [address] [place] [address] Scheduled Orders Name Type Priority Associated Diagnoses Orde r Schedule BACK OFFICE EKG COMPLETE ECG Routine Hypertension, unspecified type Dizziness Ordered: 07/21/2023 documented as of this encounter Visit Diagnoses Diagnosis Dizziness- Primary Dizziness and giddiness Hypertension, unspecified type documented in this encounter Care Teams Bench Inspector Relationship Specialty Start Date End Date Joanna Mckeon NP PCP - General Nurse Practitioner Family 07/13/23 documented as of this encounter
--- OUTSIDE RECORDS SUMMARY | 2024-08-23 12:22 | XMS_ITS | Encounter Summary ---
Author Organization [facility] Address [address] [place] [address] Care Team Providers Care Practical Nursing Instructor Name Role Phone Joanna Mckeon NP Primary Care Provider +1- [phone] Reason for Visit * Reason Onset Date Comments Results 07/15/2023 Encounter Details Date Type Department Care Team (Late Contact Info) Description 07/15/2023 Telephone [facility] Primary [address] [place] [address] Velvet Anderson LPN Results Social History Tobacco Use Types Packs/Day Years Used Date Smoking Tobacco: Every Day Cigarettes Smokeless Tobacco: Former Chew Quit: 2022 Sex and Gender Information Value Date Recorded Sex Assigned at Not on file Legal Sex Male 8:17 AM CDT Gender Identity Not on file Sexual Orientation Not on file documented as of this encounter Miscellaneous Notes * Telephone Encounter - Velvet Anderson LPN - 07/15/2023 10:30 AM CST Pt notified Velvet Anderson lpn INAL OPERATIONS SUPERVISOR * Telephone Encounter - Velvet Anderson LPN - 07/15/2023 10:30 AM CST ----- Message from Joanna Mckeon NP sent at 07/14/2023 8:05 AM TERMINAL OPERATIONS SUPERVISOR ----- Please call with labs, no medication changes needed INAL OPERATIONS SUPERVISOR documented in this encounter Plan of Treatment Upcoming Encounters Date Type Department Care Team (Late st Contact Info) Description 09/26/2024 10:30 AM TERMINAL OPERATIONS SUPERVISOR Office Visit [facility] Primary Care [address] [place] [address] Joanna Mckeon NP [address] [place] [address] documented as of this encounter Visit Diagnoses Not on filedocumented in this encounter Care Teams Practical Nursing Instructor Relationship Specialty Start Date End Date Joanna Mckeon NP PCP - General Nurse Practitioner Family 07/13/23 documented as of this encounter
--- OUTSIDE RECORDS SUMMARY | 2024-08-23 12:23 | XMS_ITS | Patient Health Record ---
Author Organization [facility] Address [address] [place] [phone] Care Team Providers Care Youth Specialist Name Role Phone Mahesh Abdul Primary Care Provider [phone] Allergies No Known Allergies Reason For Referral No Information Medications Medication SIG (Take, Route, Frequency, Duration) Notes Start Date End Date Status Metoprolol Succinate ER 25 MG take 1/2 tablet by mouth daily Oral for 30 Days Not-Takin g buPROPion HCl 75 MG TAKE 1 TABLET(75 MG) BY MOUTH DAILY Oral for 30 Days Active ALPRAZolam 0.5 MG Oral for 30 Days Active Testosterone Cypionate 200 MG/ML INJECT 1 ML IN THE MUSCLE EVERY 12 DAYS Intramuscular for 84 Days Active clomiPHENE Citrate 50 MG TAKE 1 TABLET B Y MOUTH 3 TIMES WEEKLY Oral for 84 Days Active Problems No Known Problems Plan Of Treatment No Information Insurance Providers Payer Name Payer Address Payer Phone Subscriber Number Group Number Insured Name Patient Relationship to Insured Coverage Start Date Coverage End Date [facility] [address] [place] [address] [id number] Hi Velizy Self - patient is the insured 2022
--- OUTSIDE RECORDS SUMMARY | 2024-08-23 12:23 | XMS_ITS ---
Author Organization [facility] Address [address] [place] [phone] Care Team Providers Care Molded Goods Embossing Press Operator Name Role Phone Mahesh Abdul Primary Care Provider Jimmie Abdul Unavailable [phone] Allergies No Known Allergies REASON FOR VISIT Patient presents for 1st appointment Problems No Known Problems Encounters Encounter Location Date Provider Diagnosis [facility] [address] [phone] 07/14/2023 Jimmie Abdul Plan Of Treatment No Information Progress Notes * Nerissa [birth year]OB:[birth year] (54 yo M)Acc No.[id number]:07/14/2023 UNLOCKED PROGRESS NOTE Patient:?John RAMOS Provider:?Jimmie Abdul MD :1970???Age:53 Y???Sex:Male Valdemar e:07/14/2023 Address:[address] [place], [place] [id number] Pcp:Mahesh Abdul Subjective: * Chief Complaints: * ???1. Patient presents for 1 st appointment. * Medical History:?Medical His tory Verified. * Surgical History:?Denies Pas t Surgical History. * Hospitalization/Major Diagno stic Procedure:?Denies Past Hospitalization. * Family History:?Non-Contribu tory.? * Allergies:?N.K.D.A. Objective: * Vitals:? Assessment: Plan: * Treatment: * Billing Information: * Visit Code:? * Procedure Codes:? * Electronic signature of Semaj Abdul MD on 08/23/2024 at 12:22 PM HOP PICKER Sign off status: Pending Visit Status:?N/S (No-Show) * Provider:?Jimmie Abdul MD Date:?04/2023 Generated for Griffin toth/Flor/Edilson on:?08/23/2024 12:22 PM HOP PICKER
--- OUTSIDE RECORDS SUMMARY | 2024-08-23 12:23 | XMS_ITS | Encounter Summary ---
Author Organization [facility] Address [address] [place] [address] Care Team Providers Care Jigsawyer Name Role Phone Cody Simms Primary Care Provider [phone] Reason for Visit * Reason Comments Snoring Sleep Apnea Sleep Study Excessive Daytime Sleepiness Insomnia * Sleep Study (Routine) - Closed Specialty Diagnoses / Procedures Referred By Elieser payton Referred To Contact Sleep Medicine Diagnoses Obstructive sleep apnea Procedures Polysomnography Cody Simms PA [address] [place] [address] Phone: tel: fax: Referral ID Status Reason Start Date Expiration Date Visits Re quested Visits Authorized [id number] Closed 01/03/2021 04/04/2021 1 1 Encounter Details Date Type Department Care Team ([facility] st Contact Info) Description 02/13/2021 7:30 PM CDT Treatment [facility] Sleep Study [facility] [place] [address] Obstructive sleep apnea Social History Tobacco Use Types Packs/Day Years Used Date Smoking Tobacco: Never Assessed Sex and Gender Information Value Date Recorded Sex Assigned at Not on file Legal Sex Male 8:17 AM CDT Gender Identity Not on file Sexual Orientation Not on file documented as of this encounter Last Filed Vital Signs Vital Sign Reading Time Taken Comments Blood Pressure 130/80 02/13/2021 10:56 PM CDT Pulse 77 02/13/2021 10:56 PM CDT Temperature - - Respiratory Rate 12 02/13/2021 10:56 PM CDT Oxygen Saturation 96% 02/13/2021 10:56 PM CDT Inhaled Oxygen Concentration - - Weight 80.7 kg (178 lb) 02/13/2021 10:56 PM CDT Height 177.2 cm (5' 9.75 ) 02/13/2021 10:56 PM C DT Body Mass Index 25.72 02/13/2021 10:56 PM CDT documented in this encounter Plan of Treatment Upcoming Encounters Date Type Department Care Team (Late st Contact Info) Description 09/26/2024 10:30 AM PLUMBING SERVICE TECHNICIAN Office Visit [facility] Primary Care [place] [address] [place] [phone] Joanna Mckeon NP [address] [facility] [address] [place] [address] documented as of this encounter Visit Diagnoses Diagnosis Obstructive sleep apnea Obstructive sleep apnea (adult) (pediatric) documented in this encounter Care Teams Jigsawyer Relationship Specialty [place] [address] [place] [phone] PCP - General Physician Rejoiner 02/13/21 07/12/23 documented as of this encounter
--- OUTSIDE RECORDS SUMMARY | 2024-08-23 12:23 | XMS_ITS | Encounter Summary ---
Author Organization [facility] Address [facility] [place] [address] Care Team Providers Care Insights Strategist Name Role Phone Cody Simms Primary Care Provider [phone] Reason for Visit * Reason Comments Acute Intoxication Encounter Details Date Type Department Care Team (Late st Contact Info) Description 03/14/2022 9:56 PM CDT - 03/15/2022 12:09 AM CDT Emergency [facility] [address] [address] Karlo Alvarado MD [address] [place] [address] Alcohol abuse (Primary Dx) Discharge Disposition: Home self care Social History Tobacco Use Types Packs/Day Years [...] suspected to have Coronavirus/COVID-19? No / Unsure 03/14/2022 10:01 PM CDT documented as of this encounter Last Filed Vital Signs Vital Sign Reading Time Taken Comments Blood Pressure 149/96 03/14/2022 10:01 PM CDT Pulse 114 03/14/2022 10:01 PM CDT Temperature 36.5 ??C (97.7 ??F) 03/14/2022 10:01 PM C DT Respiratory Rate 18 03/14/2022 10:01 PM CDT Oxygen Saturation 97% 03/14/2022 10:01 PM CDT Inhaled Oxygen Concentration - - Weight 82.1 kg (181 lb) 03/14/2022 10:11 PM CDT Height - - Body Mass Index 26.16 02/13/2021 10:56 PM CDT documented in this encounter Discharge Instructions * Attachments The following attachments cannot be sent through Care Everywhere. * Alcohol Use Disorder (Nicaraguan) documented in this encounter ED Notes * Gogo Schaefer RN - 03/14/2022 10:12 PM CDT Patient brought into emergency department by EMS. EMS states that patient was arrested by PD and told PD that he was wanted to . Patient denies suicidal thoughts multiple times to this RN, Bob Gordillo. Patient is alert to person, place, time and event. Gogo Schaefer RN 03/14/222213 * Gogo Schaefer RN - 03/14/2022 10:11 PM CDT Patient dad, John, was able to be contacted by this RN. Dad states that he will be able to come and pickle pumper patient in about an hour and a half. Gogo Schaefer RN 03/14/222214 * Karlo Alvarado MD - 03/14/2022 10:04 PM CDT HPI Chief Complaint Patient presents with ??? Acute Intoxication 51 year-old male presents with possible SI. 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 PD was possibly going to take him to longterm. He then told PD that he was suicidal. The patient states that hedid not mean it and is not suicidal. He denies HI and/or hallucinations. He states that he just wants to go home. Signed Nursing Notes Aquilino Deutsch REVERBERATORY FURNACE OPERATOR 03/14/2022 22:00 Ems states, he got caught by the police stealing cigarettes and they were going to take him to longterm but he said he wanted to kill himself and he's drunk so they called us. Pt oriented, denies suicidal/homicidal ideations. Original note by ASHLEY RushN at 03/14/2022 21:59 ASHLEY RushN 03/14/2022 21:59 Ems states, he got caught by the police stealing cigarettes and they were going to take him to longterm but he said he wanted to kill himself and he's drunk so they called us. Pt oriented, denies suicidal ideations. Intoxicated. Addendum to note by ASHLEY Rush at 03/14/2022 22:00 Patient History No past medical history on file. No past medical history pertinent negatives. No past surgical history on file. No family history on file. Review of Systems Review of Systems All other systems reviewed and are negative. Physical Exam ED Triage Vitals [03/14/22 2201] Temperature Heart Rate Resp Rate Blood Pressure Pulse Oximetry 36.5 ??C (97.7 ??F) (!) 114 18 (!) 149/96 97 % Temp Source Heart Rate Source Patient Position BP Location FiO2 (%) Oral Monitor Semi-Kincaid's Left arm -- Physical Exam Vitals and nursing note reviewed. Constitutional: General: He is not in acute distress. Appearance: He is not ill-appearing, toxic-appearing or diaphoretic. Comments: Appears intoxicated. HENT: Head: Normocephalic. Right Ear: External ear normal. Left Ear: External ear normal. Nose: Nose normal. Mouth/Throat: Mouth: Mucous membranes are moist. Eyes: General: No scleral icterus. Right eye: No discharge. Left eye: No discharge. Extraocular Movements: Extraocular movements intact. Pupils: Pupils are equal, round, and reactive to light. Cardiovascular: Rate and Rhythm: Normal rate and regular rhythm. Heart sounds: Normal heart sounds. No murmur heard. No friction rub. No gallop. Pulmonary: Effort: Pulmonary effort is normal. No respiratory distress. Breath sounds: Normal breath sounds. No stridor. No wheezing, rhonchi or rales. Abdominal: General: Abdomen is flat. Bowel sounds are normal. There is no distension. Palpations: Abdomen is soft. There is no mass. Tenderness: There is no abdominal tenderness. There is no guarding or rebound. Hernia: No hernia is present. Musculoskeletal: General: Normal range of motion. Cervical back: Normal range of motion. Right lower leg: No edema. Left lower leg: No edema. Skin: General: Skin is warm and dry. Capillary Refill: Capillary refill takes less than 2 seconds. Coloration: Skin is not jaundiced or pale. Neurological: General: No focal deficit present. Mental Status: He is alert and oriented to person, place, and time. Cranial Nerves: No cranial nerve deficit. Sensory: No sensory deficit. Motor: No weakness. Coordination: Coordination normal. Psychiatric: Attention and Perception: Attention normal. Mood and Affect: Mood normal. Speech: Speech normal. Behavior: Behavior normal. Thought Content: Thought content normal. Thought content is not paranoid or delusional. Thought content does not include homicidal or suicidal ideation. Thought content does not include homicidal or suicidal plan. Cognition and Memory: Cognition normal. ED Course & MDM Labs Reviewed - No data to display No results found. Medications - No data to display MDM Number of Diagnoses or Management Options Alcohol abuse: new and requires workup Diagnosis management comments: The patient is A&Ox4, clinically sober and stead gait. He is discharged in stable condition. Risk of Complications, Morbidity, and/or Mortality Presenting problems: high Diagnostic procedures: high Management options: high New Prescriptions No medications on file Clinical Impression: as of 03/14/222207 Alcohol abuse Karlo Alvarado MD 03/14/222207 * Aquilino Deutsch RN BSN - 03/14/2022 9:56 PM CDT Ems states, he got caught by the police stealing cigarettes and they were going to take him to longterm but he said he wanted to kill himself and he's drunk so they called us. Pt oriented, denies suicidal/homicidal ideations. documented in this encounter Miscellaneous Notes * ED Bed Hold - Aquilino Deutsch RN BSN - 03/14/2022 9:56 PM CDT Bed: 7 Expected date: Expected time: Means of arrival: Comments: ems documented in this encounter Plan of Treatment Upcoming Encounters Date Type Department Care Team (Late st Contact Info) Description 09/26/2024 10:30 AM ORTHOPEDIC PHYSICAL THERAPIST Office Visit [facility] Primary Care [address] [place] [address] Joanna Mckeon NP [address] [place] [address] [address] [place], [place] [address] documented as of this encounter Visit Diagnoses Diagnosis Alcohol abuse- Primary Nondependent alcohol abuse, unspecified drinking behavior documented in this encounter Care Teams Insights Strategist Relationship Specialty Start Date End Date Cody Simms PA [address] [place] [address] PCP - General Physician Senior Electrical Project Manager 02/13/21 07/12/23 documented as of this encounter
--- OUTSIDE RECORDS SUMMARY | 2024-08-23 12:23 | XMS_ITS | Encounter Summary ---
Author Organization [facility] Address [address] [place] [address] Care Team Providers Care Oracle Brm Developer Name Role Phone Joanna Mckeon TRAIN DRIVER Primary Care Provider [phone] Reason for Visit * Reason Comments Depression Pt is here for depre ssion. States he has been having depression for years but he is currently taking wellbutrin for it and it does seem to help Anxiety Pt states he has bee n experiencing anxiety for years but its been more often due to the medication he his currently taking which is losartan. Pt also take alprazolam for anxiety as well Vertigo States since startin g the losartan he has been experiencing vertigo which he is currently seeing a specialist for. Encounter Details Date Type Department Care Team (Latest Contact Info) Description 07/13/2023 11:15 AM HAND ALTERATIONS SEAMSTRESS [facility] [address] [place] [address] Joanna Mckeon NP [address] [place] [address] IGGY (generalized anxiety disorder) (Primary Dx); Hypertriglyceridemia; Hypovitaminosis D; Hypertension, unspecified type; Chronic prescription benzodiazepine use; Vertigo Social History Tobacco Use Types Packs/Day Years Used Date Smoking Tobacco: Every Day Cigarettes Smokeless Tobacco: Former Chew Quit: 2022 Tobacco Cessation:Ready to Q uit: Yes; Counseling Given: Yes Sex and Gender Information Value Date Recorded Sex Assigned at Not on file Legal Sex Male 8:17 AM CDT Gender Identity Not on file Sexual Orientation Not on file documented as of this encounter Last Filed Vital Signs Vital Sign Reading Time Taken Comments Blood Pressure 124/76 07/13/2023 11:35 AM HAND ALTERATIONS SEAMSTRESS Pulse 80 07/13/2023 11:35 AM HAND ALTERATIONS SEAMSTRESS Temperature 37 ??C (98.6 ??F) 07/13/2023 11:35 AM HAND ALTERATIONS SEAMSTRESS Respiratory Rate 16 07/13/2023 11:35 AM HAND ALTERATIONS SEAMSTRESS Oxygen Saturation 97% 07/13/2023 11:35 AM HAND ALTERATIONS SEAMSTRESS Inhaled Oxygen Concentration - - Weight 81.2 kg (179 lb) 07/13/2023 11:35 AM HAND ALTERATIONS SEAMSTRESS Height 177.8 cm (5' 10 ) 07/13/2023 11:35 AM HAND ALTERATIONS SEAMSTRESS Body Mass Index 25.68 07/13/2023 11:35 AM HAND ALTERATIONS SEAMSTRESS documented in this encounter Progress Notes * Joanna Mckeon NP - 07/13/2023 11:15 AM CST Images from the original note were not included. Patient ID: John Veliz is a 53 y.o. male : 1970 Subjective Chief Complaint Patient presents with ??? Depression Pt is here for depression. States he has been having depression for years but he is currently taking wellbutrin for it and it does seem to help ??? Anxiety Pt states he has been experiencing anxiety for years but its been more often due to the medication he his currently taking which is losartan. Pt also take alprazolam for anxiety as well ??? Vertigo States since starting the losartan he has been experiencing vertigo which he is currently seeing a specialist for. HPI As above. I have reviewed, and [...] Dr Tanner for counseling Objective Vitals Vitals: 07/13/23 1135 BP: 124/76 BP Location: Right arm Patient Position: Sitting Pulse: 80 Resp: 16 Temp: 37 ??C (98.6 ??F) SpO2: 97% Weight: 81.2 kg (179 lb) Height: 70 PainSc: 0-No pain Body mass index is 25.68 kg/m??. Physical Exam Vitals and nursing note reviewed. Constitutional: General: He is not in acute distress. Appearance: Normal appearance. HENT: Head: Normocephalic. Right Ear: Tympanic membrane normal. Left Ear: Tympanic membrane normal. Mouth/Throat: Pharynx: No posterior oropharyngeal erythema. Neck: Thyroid: No thyromegaly. Vascular: No carotid bruit or JVD. Cardiovascular: Rate and Rhythm: Normal rate and regular rhythm. Heart sounds: Normal heart sounds. Pulmonary: Effort: Pulmonary effort is normal. Breath sounds: Normal breath sounds. Abdominal: Palpations: Abdomen is soft. Tenderness: There is no abdominal tenderness. Musculoskeletal: Right lower leg: No edema. Left lower leg: No edema. Lymphadenopathy: Cervical: No cervical adenopathy. Skin: General: Skin is warm and dry. Neurological: General: No focal deficit present. Mental Status: He is alert and oriented to person, place, and time. Psychiatric: Mood and Affect: Mood normal. Assessment/Plan John was seen today for depression, anxiety and vertigo. Diagnoses and all orders for this visit: IGGY (generalized anxiety disorder) - ALPRAZolam (XANAX) 0.5 mg tablet; Take 1 tablet (0.5 mg total) by mouth 3 (three) times a day as needed for anxiety - TSH; Future - Free T4; Future Hypertriglyceridemia - Lipid Panel; Future - CMP; Future Hypovitaminosis D - Vitamin D 25 Hydroxy; Future Hypertension, unspecified type - CBC and Differential; Future - Urinalysis; Future Chronic prescription benzodiazepine use - Drug Screen, Pain Management Reflex to Quantitative, Urine; Future Vertigo Continue PT for vertigo Nurse to call with test results and any further instructions. Instructed to call office or send message through My Chart if has not heard anything in over one week. Return in about 1 month (around 08/12/2023). There are no Patient Instructions on file for this visit. Call with any issues. Return if not improving or if worsening. John voice(s) understanding and agreement with plan of care. Electronically Signed By: Joanna Mckeon NP 07/17/23 12:08 PM Statement for coding/billing: After evaluating the complexity of problems & data addressed, social determinants of health, and management options selected today, I believe the patient's risk of complication and/or morbidity or mortality to be moderate. ALTERATIONS SEAMSTRESS documented in this encounter Plan of Treatment Upcoming Encounters Date Type Department Care Team (Late st Contact Info) Description 09/26/2024 10:30 AM HAND ALTERATIONS SEAMSTRESS [facility] Care [address] [place] [phone] Joanan Mckeon NP [address] [place] [address] [address] [place] [address] documented as of this encounter Results * Vitamin D 25 Hydroxy (07/13/2023 12:54 PM HAND ALTERATIONS SEAMSTRESS) Vitamin D 25-Hydroxy 30.0 30.0 - 100.0 ng/mL 07/13/2023 6:47 PM HAND ALTERATIONS SEAMSTRESS [facility] Blood Venous blood specimen / Unknown Venipuncture / Unknown 07/13/2023 12:54 PM HAND ALTERATIONS SEAMSTRESS 07/13/2023 12:54 PM HAND ALTERATIONS SEAMSTRESS Joanna Mckeon NP LAB BLOOD ORDERABLES Final Result Performing Organization Address City/State/[facility] Co de Phone Number [address] [phone] * (ABNORMAL) Urinalysis (07/13/2023 12:42 PM HAND ALTERATIONS SEAMSTRESS) Color, Urine Light Yellow Colorless, Light Yellow, Yellow, Carol 07/13/2023 2:07 PM HAND ALTERATIONS SEAMSTRESS [facility] Appearance, Urine Clear Clear 07/13/2023 2:07 PM HAND ALTERATIONS SEAMSTRESS [facility] Glucose, Urine Negative Negative mg/dL 07/13/2023 2:07 PM HAND ALTERATIONS SEAMSTRESS [facility] Bilirubin, Urine Negative Negative 07/13/20 2:07 PM [facility] Ketone Negative Negative mg/dL 07/13/2023 2:07 PM [facility] Specific [place],Urine <=1.005(A) 1.010 - 1.025 07/13/2023 2:07 PM [facility] Occult Blood Urine Negative Negative 07/13/2023 2:07 PM [facility] pH,Urine 6.0 5 - 7.5 [pH] 07/13/2023 2:07 PM [facility] Protein, Urine Negative Negative mg/dL 07/13/2023 2:07 PM [facility] Urobilinogen 0.2 <1.1 mg/dL 07/13/2023 2:07 PM [facility] Nitrite, Urine Negative Negative 07/13/2023 2:07 PM [facility] Leukocyte Esterase, Urine Negative Negative 07/13/2023 2:07 PM [facility] Urine Non-blood Collection / Unknown 07/13/2023 12:42 PM HAND ALTERATIONS SEAMSTRESS 07/13/2023 12:42 PM HAND ALTERATIONS SEAMSTRESS us Joanna Mckeon NP LAB URINE ORDERABLES Final Result [facility] [address] [place] [address], * CMP (07/13/2023 12:42 PM HAND ALTERATIONS SEAMSTRESS) Sodium 143 136 - 145 mmol/L 07/13/2023 2:47 PM [facility] Potassium 4.5 3.5 - 5.1 mmol/L 07/13/2023 2:47 PM [facility] Chloride 107 98 - 107 mmol/L 07/13/2023 2:47 PM [facility] Carbon Dioxide 30 21 - 32 mmol/L 07/13/2023 2:47 PM [facility] Blood Urea Nitrogen 14 7 - 18 mg/dL 07/13/2023 2:47 PM [facility] Creatinine 1.28 0.55 - 1.30 mg/dL 07/13/2023 2:47 PM [facility] Glucose 94 74 - 106 mg/dL 07/13/2023 2:47 PM [facility] Calcium 9.3 8.5 - 10.1 mg/dL 07/13/2023 2:47 PM [facility] AST/SGOT 15 15 - 37 U/L 07/13/2023 2:47 PM [facility] ALT/SGPT 33 13 - 61 U/L 07/13/2023 2:47 PM [facility] Alk Phos 80 45 - 117 U/L 07/13/2023 2:47 PM [facility] Total Protein 7.6 6.4 - 8.2 g/dL 07/13/2023 2:47 PM [facility] Albumin 4.0 3.4 - 5.0 g/dL 07/13/2023 2:47 PM [facility] Bilirubin,Total 0.9 0.2 - 1.0 mg/dL 07/13/2023 2:47 PM [facility] GFR Estimate (CKD-EPI) 68 mL/min 07/13/2023 2:47 PM [facility] Blood Venous blood specimen / Unknown Venipuncture / Unknown 07/13/2023 12:42 PM HAND ALTERATIONS SEAMSTRESS 07/13/2023 12:42 PM HAND ALTERATIONS SEAMSTRESS us Joanna Mckeon NP LAB BLOOD ORDERABLES Final Result [facility] [address] [place] [address], * Free T4 (07/13/2023 12:42 PM HAND ALTERATIONS SEAMSTRESS) Free T4 1.01 0.76 - 1.46 ng/dL 07/13/2023 2:47 PM [facility] Blood Venous blood specimen / Unknown Venipuncture / Unknown 07/13/2023 12:42 PM HAND ALTERATIONS SEAMSTRESS 07/13/2023 12:42 PM HAND ALTERATIONS SEAMSTRESS us Joanna Mike TRAIN DRIVER LAB BLOOD ORDERABLES Final Result [facility] [address] [place] [address], * TSH (07/13/2023 12:42 PM HAND ALTERATIONS SEAMSTRESS) Pathologist [facility] TSH 0.558 0.358 - 3.740 uIU/mL 07/13/2023 2:47 PM [facility] Blood Venous blood specimen / Unknown Venipuncture / Unknown 07/13/2023 12:42 PM HAND ALTERATIONS SEAMSTRESS 07/13/2023 12:42 PM HAND ALTERATIONS SEAMSTRESS Joanna Mckeon TRAIN DRIVER LAB BLOOD ORDERABLES Final Result Performing Organization Address [facility]/ZIP Co de Phone Number [facility] [address] [place] [address], * (ABNORMAL) Lipid Panel (07/13/2023 12:42 PM HAND ALTERATIONS SEAMSTRESS) [facility] Triglycerides 144 30 - 150 mg/dL 07/13/2023 2:47 PM [facility] Cholesterol 201(H) 0 - 200 mg/dL 07/13/2023 2:47 PM [facility] HDL Cholesterol 38(L) 40 - 59 mg/dL 07/13/2023 2:47 PM [facility] LDL Cholesterol (Calc) 134 >=100 mg/dL 07/13/2023 2:47 PM [facility] Blood Venous blood specimen / Unknown Venipuncture / Unknown 07/13/2023 12:42 PM HAND ALTERATIONS SEAMSTRESS 07/13/2023 12:42 PM HAND ALTERATIONS SEAMSTRESS Joanna Mckeon NP LAB BLOOD ORDERABLES Final Result Performing Organization Address City/[facility]/ZIP Co de Phone Number [facility] [address] [place] [address], documented in this encounter Visit Diagnoses Diagnosis IGGY (generalized anxiety disorder)- Primary Generalized anxiety disorder Hypertriglyceridemia Pure hyperglyceridemia Hypovitaminosis D Unspecified vitamin D deficiency Hypertension, unspecified type Chronic prescription benzodiazepine use Vertigo Dizziness and giddiness documented in this encounter Care Teams Oracle Brm Developer Relationship Specialty Start Date End Date Joanna Mckeon NP PCP - General Nurse Practitioner Family 07/13/23 documented as of this encounter
--- OUTSIDE RECORDS SUMMARY | 2024-08-23 12:23 | XMS_ITS | Encounter Summary ---
Author Organization [facility] Address [facility] [place] [address] Care Team Providers Care System Manager Name Role Phone Cody Simms Primary Care Provider [phone] Encounter Details Date Type Department Care Team (Latest Contact Info) Description 03/14/2022 Travel Social History Tobacco Use Types Packs/Day Years [...] st Contact Info) Description 09/26/2024 10:30 AM POLISHER ALUMINUM Office Visit [facility] Primary Care [address] [place] [phone] Joanna Mckeon NP [address] [place] [address] documented as of this encounter Visit Diagnoses Not on filedocumented in this encounter Care Teams System Manager Relationship Specialty Start Date End Date Cody Simms PA [address] [place] [id number] PCP - General Physician Electrical Engineering Technician 02/13/21 07/12/23 documented as of this encounter
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
== END 2024-08-19 12:07 | disposition home or self-care (01) ==
LOC: ANHCARD 12:09
PROVIDERS: Visit Provider Anesthesiology
DX: I10 Essential (primary) hypertension (principal); Z01.818 Encounter for other preprocedural examination
CPT/HCPCS: 93005

== ENCOUNTER 2024-08-21 00:41 | Day surgery (SDC) | payer BC, SELFPAY ==
--- NOTE | 2024-08-17 12:59 | P.HP_ITS ---
H&P: HPI History of Present Illness Date/Time: 08/17/24 12:59 Chief Complaint: Patient presents with an ankle fracture right. He tripped and injured his ankle. He is has a fracture of the lateral malleolus and looks like maybe a little widening of the medial clear space. At any rate the fracture is displaced. Would like to undergo repair. Will proceed. Review of Systems Musculoskeletal: Musculoskeletal: Reports arthralgias, Reports joint swelling and Reports stiffness Neurologic: Reports abnormal gait [facility] Past Medical History Medical History (Updated 08/17/24 @ 13:01 by Julian Corey MD) Hypertension Surgical History Surgical History (Updated 08/17/24 @ 13:40 by Regina Lopez CMA) History of shoulder surgery left Social History Social History (Updated 08/17/24 @ 13:40 by Regina Lopez CMA) Smoking status: Current every day smoker Tobacco type: cigarettes Alcohol intake: never Substance use: never Do You Feel Safe in your Home?: Yes Lack of Transportation: No Lack of Food: Never True Current Housing: I Have Housing Concerned About Future Housing: No Difficulty Paying Gas/Electric Bills: No Difficulty Paying for Meds: No Currently Unemployed: No Education: High School Diploma/GED Difficulty w/ Childcare or Family Care: No Meds Home Medications and Allergies Home Medications ?Medication ?Instructions ?Recorded ?Confirmed ?Type alprazolam 0.5 mg tablet 0.5 mg PO TID 11/16/23 12/16/23 History bupropion HCl 75 mg tablet 75 mg PO DAILY 11/16/23 12/16/23 History clomiphene citrate 50 mg tablet 50 mg PO 3XW 11/16/23 12/16/23 History testosterone cypionate 200 mg/mL 200 mg IM Q12D 11/16/23 12/16/23 History intramuscular oil lisinopril 5 mg tablet 10 mg PO DAILY 08/17/24 History Allergies Allergy/AdvReac Type Severity Reaction Status Date / Time codeine Allergy Mild Itching Verified 08/17/24 12:41 Exam Narrative: Patient has moderate pain and swelling of his ankle. Neurologically he is intact. He has pain with any manipulation. Eyes: General: appearance normal, both eyes and all related structures Neck: Neck: supple Resp: Effort & Inspection: normal respiratory effort Cardio: Rate: regular rate Rhythm: regular rhythm Radiology Reports: Comments: Patient: John Veliz XR ankle RT min 3V Ordering provider: Carmella Betancourt MD History: . injury, right ankle pain, wrapped due to previous ER visit . Comparison: None. FINDINGS: BONES: Oblique fracture is seen in the lateral malleolus extending to the joint space. No significant displacement. Possibility of fracture of the posterior malleolus of the tibia is not excluded. Follow sided lower lumbar mass JOINT SPACES: Normal. SOFT TISSUES: Soft tissue swelling seen over the lateral malleolus. IMPRESSION: Fracture in the lateral malleolus. Reviewed, dictated and finalized at location A. ESTATE REP Ankle X-Ray 08/16/24 Assessment and Plan Assessment and plan (1) Bimalleolar fracture of right ankle: Code(s): S82.841A - Displaced bimalleolar fracture of right lower leg, initial encounter for closed fracture Status: Acute Assessment and Plan: Patient has a fracture of his right ankle. He has a lateral malleolar fracture was a tenderness and pain medially with some question of widening of the medial clear space. I recommended open reduction internal fixation. I may use a tight rope or syndesmosis screw if there is a syndesmosis injury and he has opening on stress views. I have discussed this with him risks, benefits, limitations, and alternatives in detail. He understands and agrees and would like to proceed.
--- NOTE | 2024-08-17 14:13 | PM.IMHP ---
H&P: HPI History of Present Illness Date/Time: 08/17/24 14:13 PMF Past Medical History Medical History (Updated 08/17/24 @ 13:01 by Julian Corey MD) Hypertension Surgical History Surgical History (Updated 08/17/24 @ 13:40 by Regina Lopez CMA) History of shoulder surgery left Social History Social History (Updated 08/17/24 @ 13:40 by Regina Lopez CMA) Smoking status: Current every day smoker Tobacco type: cigarettes Alcohol intake: never Substance use: never Do You Feel Safe in your Home?: Yes Lack of Transportation: No Lack of Food: Never True Current Housing: I Have Housing Concerned About Future Housing: No Difficulty Paying Gas/Electric Bills: No Difficulty Paying for Meds: No Currently Unemployed: No Education: High School Diploma/GED Difficulty w/ Childcare or Family Care: No Meds Home Medications and Allergies Home Medications ?Medication ?Instructions ?Recorded ?Confirmed ?Type alprazolam 0.5 mg tablet 0.5 mg PO TID 11/16/23 12/16/23 History bupropion HCl 75 mg tablet 75 mg PO DAILY 11/16/23 12/16/23 History clomiphene citrate 50 mg tablet 50 mg PO 3XW 11/16/23 12/16/23 History testosterone cypionate 200 mg/mL 200 mg IM Q12D 11/16/23 12/16/23 History intramuscular oil lisinopril 5 mg tablet 10 mg PO DAILY 08/17/24 History Allergies Allergy/AdvReac Type Severity Reaction Status Date / Time codeine Allergy Mild Itching Verified 08/17/24 12:41
[2024-08-18 09:14] VITALS: BMI 25.9
--- NOTE | 2024-08-18 09:28 | PC.NURSE ---
Report to the Outpatient Waiting Room, entrance under the green pavilion located off [facility], at time _0800_ on date _[id number]_. Planned Procedure Time: _1000_.? Time changes happen often and if your time is changed the preop area will call you the afternoon before. - You and your visitor will be asked to self-screen and do not enter if you have any COVID symptoms. Please call surgeon if you need to reschedule. - A mask is optional within the hospital at this time. Patients may have clear liquids (water, carbonated beverages, clear teas, apple juice) until 3 hours prior to surgery with a maximum of 20 ounces. - No food from midnight until time of surgery and no smoking. This includes no chewing gum, candy or mints. Take only the following medications with a SIP of water on the morning of surgery: __Bupropion and Alprazolam__ DO NOT STOP ANY OF YOUR OTHER PRESCRIPTION MEDICATIONS PRIOR TO SURGERY EXCEPT THE FOLLOWING Medications to discontinue per physician __Vitamins and Ibuprofen Date to take last dose___Stop now.___ Please no make-up, nail ukrainian, hairspray, perfume, deodorant, or body powder the day of surgery.? No jewelry (including any body piercings) or valuables the day of surgery, leave them at home.? Please take a shower or bath the night before, or the morning of, surgery with an antibacterial soap.? Wear comfortable, loose fitting clothing.? - Jewelry must be removed prior to entering the operating room.? Rings and piercings that are not removed may be cut off. - The hospital will not accept responsibility for valuables.? - Please leave all valuables, including medications, at home the day of surgery. If you are going home after surgery, a licensed team truck driver must drive you home.? - NO public transportation without another adult if you receive anesthesia. - We recommend that an adult stay with you for 24 hours following discharge. - We also recommend that you do not drive, make important decision, drink alcoholic beverages, or take any drugs that were not prescribed by your health care provider for at least 24 hours after your discharge time. Follow any additional instructions given to you from your surgeon. Telephone instructions given to __John__and asked if any additional questions and then verbalized understanding. Patient advised to call surgeon office or pre surgery nurse liaison [phone] if any additional questions.
[2024-08-21] VITALS (11 sets, daily range): BP systolic 143–179; BP diastolic 76–93; PULSE 69–96; RESP 12–19; TEMP 36.4–36.6; O2SAT 95–100
--- NOTE | ~2024-08-21 | XR_ITS ---
EXAMINATION: XR surgery orthopedic DATE: 08/21/2024 10:18 INDICATION: ORIF right ankle fracture TECHNIQUE: 2 fluoroscopic images of the right ankle were obtained during procedure performed by Dr. Umesh christine. Radiologist was not present for the imaging or procedure. The amount of fluoroscopy time use d during this procedure was 0.4 minutes. COMPARISON: 08/16/2024 FINDINGS: Interval open reduction internal fixation of the oblique fracture of the distal fibula. The fracture is narrowing near-anatomic alignment and fixed with interfragmentary screw and a lateral plate and sc rews. No other fractures identified. Ankle mortise is congruent with normal joint space. IMPRESSION: 1. Near-anatomic alignment post open reduction internal fixation of a fracture of the distal right fi bula. Reviewed, dictated and finalized at location A. IC HEALTH OFFICER IMPRESSION: 1. Near-anatomic alignment post open reduction internal fixation of a fracture of the distal right fibula.
--- NOTE | 2024-08-21 08:17 | WPDHPUPDATE1 ---
History and Physical Update Update Date/Time: 08/21/24 08:17 History and Physical has been reviewed, including an updated exam of the patient. There are NO changes in the patient's condition. Risks, benefits, and alternatives have been discussed and questions answered. Patient agrees to proceed with procedure.
--- NOTE | 2024-08-21 08:51 | P.PNAN_ITS ---
Anes - Initial Pre Proc Eval Procedure: Operation Date: 08/21/24 10:00 Proposed Procedures p Open Reduction Internal Fixation Right Ankle Fracture - Julian Coery MD Date/Time: 08/21/24 08:51 Surgeon: Julian Corey MD Pre Op Diagnosis: right lateral maleolous fx Patient Data Age: 54 Gender: M Height: 1.78 m Weight: 81.8 kg Allergies Allergy/AdvReac Type Severity Reaction Status Date / Time codeine Allergy Mild Itching Verified 08/18/24 09:11 Home Medications ?Medication ?Instructions ?Recorded ?Confirmed ?Type alprazolam 0.5 mg tablet 0.5 mg PO TID 11/16/23 08/18/24 History bupropion HCl 75 mg tablet 75 mg PO DAILY 11/16/23 08/18/24 History clomiphene citrate 50 mg tablet 50 mg PO 3XW 11/16/23 08/18/24 History testosterone cypionate 200 mg/mL 200 mg IM Q12D 11/16/23 08/18/24 History intramuscular oil acetaminophen 500 mg tablet 1,000 mg PO Q6H PRN pain 08/18/24 08/18/24 History cholecalciferol (vitamin D3) 50 2,000 unit PO DAILY 08/18/24 08/18/24 History mcg (2,000 unit) capsule hydrocodone 7.5 mg-acetaminophen 1 tablet PO Q4H PRN pain 08/18/24 08/18/24 History 325 mg tablet ibuprofen 200 mg tablet 200 mg PO QID PRN pain 08/18/24 08/18/24 History lisinopril 10 mg tablet 10 mg PO DAILY 08/18/24 08/18/24 History multivitamin (One Daily 1 tablet PO DAILY 08/18/24 08/18/24 History Multivitamin tablet) Patient hx anesthesia problems: none Family hx anesthesia problems: none Results Review: All pre-operative results and documents have been reviewed as part of the pre- operative evaluation. [facility] Past Medical History Medical History (Updated 08/21/24 @ 08:35 by Lopez Rodriguez DO) Vertigo Depression Anxiety GABRIEL (obstructive sleep apnea) Hypertension Surgical History Surgical History (Updated 08/17/24 @ 13:40 by Regina Lopez CMA) History of shoulder surgery left Social History Social History (Updated 08/17/24 @ 13:40 by Regina Lopez [facility]) Years smoked: 20 Smoking status: Current every day smoker Tobacco type: cigarettes Alcohol intake: never Substance use: never Do You Feel Safe in your Home?: Yes Lack of Transportation: No Lack of Food: Never True Current Housing: I Have Housing Concerned About Future Housing: No Difficulty Paying Gas/Electric Bills: No Difficulty Paying for Meds: No Currently Unemployed: No Education: High School Diploma/GED Difficulty w/ Childcare or Family Care: No Living arrangements: with family Spiritual care concerns: No Anes - Eval Final PreProcedure Day of Procedure 08/21/24 08:51 Patient weight: overweight Heart: regular rate and rhythm Lungs: clear to auscultation Airway: Mallampati scale class II and special considerations poor dentition Neurological: alert and oriented Last oral intake: >/= 8 hours ASA classification: III Emergent: no Anesthetic plan: proceed Anesthesia type and monitoring: general LMA and standard monitoring Results Review: All pre-operative results and documents have been reviewed as part of the pre- operative evaluation. Informed Consent: The patient's anesthetic plan and its attendant risks and benefits were discussed with the patient/family/POA. Questions were solicited and answers provided to the satisfaction of the patient/family/POA.
[2024-08-21] MEDS: LACTATED RINGERS 1,000 ML 30 ML IV CONT ×2 (09:00→10:14)
[2024-08-21] MEDS: KETOROLAC 15 MG/ML VIAL (*BKC) IV PUSH (09:00)
[2024-08-21] MEDS: ACETAMINOPHEN 500 MG TABLET 1000 MG PO (09:00)
--- NOTE | 2024-08-21 09:06 | WPDANESEPPF ---
Anes - Initial Pre Proc Eval Procedure: Operation Date: 08/21/24 10:00 Proposed Procedures p Open Reduction Internal Fixation Right Ankle Fracture - Julian Corey MD Date/Time: 08/21/24 09:06 Surgeon: Julian Corey MD Pre Op Diagnosis: right lateral maleolous fx Patient Data Age: 54 Gender: M Height: 1.78 m Weight: 81.8 kg Allergies Allergy/AdvReac Type Severity Reaction Status Date / Time codeine Allergy Mild Itching Verified 08/18/24 09:11 Home Medications ?Medication ?Instructions ?Recorded ?Confirmed ?Type alprazolam 0.5 mg tablet 0.5 mg PO TID 11/16/23 08/18/24 History bupropion HCl 75 mg tablet 75 mg PO DAILY 11/16/23 08/18/24 History clomiphene citrate 50 mg tablet 50 mg PO 3XW 11/16/23 08/18/24 History testosterone cypionate 200 mg/mL 200 mg IM Q12D 11/16/23 08/18/24 History intramuscular oil acetaminophen 500 mg tablet 1,000 mg PO Q6H PRN pain 08/18/24 08/18/24 History cholecalciferol (vitamin D3) 50 2,000 unit PO DAILY 08/18/24 08/18/24 History mcg (2,000 unit) capsule hydrocodone 7.5 mg-acetaminophen 1 tablet PO Q4H PRN pain 08/18/24 08/18/24 History 325 mg tablet ibuprofen 200 mg tablet 200 mg PO QID PRN pain 08/18/24 08/18/24 History lisinopril 10 mg tablet 10 mg PO DAILY 08/18/24 08/18/24 History multivitamin (One Daily 1 tablet PO DAILY 08/18/24 08/18/24 History Multivitamin tablet) : patient denies HCG: negative Patient hx anesthesia problems: none Family hx anesthesia problems: none Results Review: All pre-operative results and documents have been reviewed as part of the pre-operative evaluation. [facility] Past Medical History Medical History Vertigo Depression Anxiety GABRIEL (obstructive sleep apnea) Hypertension Surgical History Surgical History History of shoulder surgery left Social History Social History Years smoked: 20 Smoking status: Current every day smoker Tobacco type: cigarettes Alcohol intake: never Substance use: never Do You Feel Safe in your Home?: Yes Lack of Transportation: No Lack of Food: Never True Current Housing: I Have Housing Concerned About Future Housing: No Difficulty Paying Gas/Electric Bills: No Difficulty Paying for Meds: No Currently Unemployed: No Education: High School Diploma/GED Difficulty w/ Childcare or Family Care: No Living arrangements: with family Spiritual care concerns: No Anes - Eval Final PreProcedure Day of Procedure 08/21/24 09:06 Patient weight: normal Heart: regular rate and rhythm Lungs: clear to auscultation Airway: Mallampati scale class II Neurological: alert and oriented Last oral intake: >/= 8 hours ASA classification: III Anesthesia type and monitoring: general LMA and standard monitoring Results Review: All pre-operative results and documents have been reviewed as part of the pre-operative evaluation. Informed Consent: The patient's anesthetic plan and its attendant risks and benefits were discussed with the patient/family/POA. Questions were solicited and answers provided to the satisfaction of the patient/family/POA.
[2024-08-21] MEDS: ceFAZolin 2 GM/D5W 50 ML 2 GM/50 ML BAG IVPB (09:18)
--- NOTE | 2024-08-21 09:54 | W.PM.PROC2 ---
Procedure Note - Detailed Date of Procedure 08/21/24 Pre-op Diagnosis RIGHT lateral maleolous fx Post-op Diagnosis Same Procedure Performed Open Reduction, Internal Fixation Surgeon Julian Corey MD Sanitation Technician Oskar Aaron Anesthesia General Indications Fracture Description of Procedure Patient brought to operating room 8. A general anesthetic was administered. He was sterilely prepped and draped in usual manner. After the time-out was done a lateral incision made. Dissection carried down to the fascia. The fascia and periosteum were stripped off the lateral malleolar fracture. This was reduced and held with the lobster claw. A 6 hole an interfragmentary screw was placed. Excellent anatomic alignment was achieved. The ankle was stable and put through a full range of motion. I did not see any opening medially and the syndesmosis repair was not necessary. Wounds closed with 2-0 Vicryl and jhoana and placed in placed in a postop boot. Estimated Blood Loss 20 Complications No immediate complications Condition Stable Disposition PACU [facility] Billing Surgery - Charge Forward: Surgery Billing (ORIF Lateral Malleolus [id number])
[2024-08-21] MEDS: fentaNYL CITRATE INJ (*CRX) 100 MCG/2 ML VIAL 25 MCG IV PUSH ×6 (10:41→11:13)
[2024-08-21] MEDS: HYDROmorphone HCL INJ (*CRX) 1 MG/ML SYR IV PUSH (11:28)
[2024-08-21] MEDS: oxyCODONE HCL (*CRX) 5 MG TAB IR PO (12:20)
--- OUTSIDE RECORDS SUMMARY | 2024-08-26 09:49 | XMS_ITS | Encounter Summary ---
Author Organization [facility] Address [address] [place] [address] Care Team Providers Care Air Saw Operator Name Role Phone Joanna Mckeon DYE AND CHEMICAL COORDINATOR Primary Care Provider [phone]- [phone] Reason for Visit * Reason Comments Sinus Problem Cough Started yesterday Encounter Details Date Type Department Care Team (Late st Contact Info) Description 05/27/2024 10:30 AM CDT Office Visit [facility] [address] [place] [phone] Niya Mireles NP [facility] [place] [address] Influenza A (Primary Dx); Cough, [...] Niya Mireles NP 05/27/2024 4:10 PM This nurse aide was created in part using [employer] Direct voice recognition software, electronically transcribed and electronically signed. Be aware that this nurse aide may contain errors not detected by proofreading. documented in this encounter Plan of Treatment Not on file documented as of this encounter Procedures Procedure Name Priority Date/Time Associated Diagnosis Comments POCT INFLUENZA A/B Routine 05/27/2024 3: 47 PM CDT Cough, unspecified type documented in this encounter Results * POCT INFLUENZA A/B (05/27/2024 3:47 PM CDT) Influenza A Ab pos [facility] Influenza B Ab neg [facility] 05/27/2024 3:47 PM CDT Niya Mireles DYE AND CHEMICAL COORDINATOR POINT OF CARE TEST O RDERABLES YONATHAN [place]CM[place] [id number] [address] documented in this encounter Visit Diagnoses Diagnosis Influenza A- Primary Influenza with other respiratory manifestations Cough, unspecified type documented in this encounter Care Teams Air Saw Operator Relationship Specialty Start Date End Date Joanna Mckeon NP [facility] [address] [place] [address] PCP - General Physician Protohistorian 08/31/23 documented as of this encounter
--- OUTSIDE RECORDS SUMMARY | 2024-08-26 09:49 | XMS_ITS | Encounter Summary ---
Author Organization [facility] Address [address] [place] [address] Care Team Providers Care Associate Program Manager Name Role Phone Joanna Mckeon NP Primary Care Provider [phone]- [phone] Reason for Visit * Reason Onset Date Comments Results 07/12/2023 Encounter Details Date Type Department Care Team ([facility] st Contact Info) Description 07/12/2023 Telephone [facility] [address] [place] [address] Mandy Lyles DO [address] [place] [address] Results Social History Tobacco Use [...] Zuleika Joseph CNA - 07/13/2023 10:17 AM HOME WEATHERIZING WORKER Pt called back and was notified of message WEATHERIZING WORKER * Telephone Encounter - Jesi Loaiza LPN - 07/13/2023 10:07 AM CST Called patient, no answer, voicemail full. Unable to leave a message at this time. WEATHERIZING WORKER * Telephone Encounter - Jesi Loaiza LPN - 07/13/2023 10:04 AM CST ----- Message from Mandy Lyles DO sent at 07/12/2023 2:08 PM HOME WEATHERIZING WORKER ----- Renal function and bilirubin are stable. Otherwise CMP is. CBC shows stable hematocrit and MCV compared to 8 months ago. This is likely due to his testosterone supplementation. Recommend he donate blood. TSH magnesium normal. Continue current management WEATHERIZING WORKER * Telephone Encounter - Zuleika Joseph CNA - 07/12/2023 11:27 AM HOME WEATHERIZING WORKER Pt called and is wanting to know lab results and is wanting to also get a copy of it. Please call back WEATHERIZING WORKER documented in this encounter Plan of Treatment Not on file documented as of this encounter Visit Diagnoses Not on filedocumented in this encounter Care Teams Associate Program Manager Relationship Specialty Start Date End Date Joanna Mckeon NP [address] [place] [address] [address] [place] [address] PCP - General Physician Hatchery Manager 08/11/23 08/16/23 documented as of this encounter
--- OUTSIDE RECORDS SUMMARY | 2024-08-26 09:49 | XMS_ITS | Encounter Summary ---
Author Organization [facility] Address [address] [place] [address] Care Team Providers Care Health Care Technician Name Role Phone Niya Mcknight Primary Care Provider +1- [phone] Reason for Visit * Reason Comments Medication Refill Encounter Details Date Type Department Care Team (Late st Contact Info) Description 03/10/2023 Refill [facility] [address] [place] [address] Niya Mcknight PA [address] [place] [address] Medication Refill Social History Tobacco [...] on filedocumented in this encounter Care Teams Health Care Technician Relationship Specialty Start Date End Date Niya Mcknight PA [address] [place] [address] PCP - General Family Medicine 03/11/22 06/01/23 documented as of this encounter
--- OUTSIDE RECORDS SUMMARY | 2024-08-26 09:49 | XMS_ITS | Encounter Summary ---
Author Organization [facility] Address [address] [place] [address] Care Team Providers Care Vice President Marketing & Development Name Role Phone Niya Mcknight Primary Care Provider +1- [phone] Reason for Visit * Reason Comments Medication Refill Encounter Details Date Type Department Care Team ([facility] st Contact Info) Description 01/27/2023 Refill [facility] [address] [place] [address] Cody Simms PA [address] [place], [place] [address] Medication Refill Social History Tobacco Use Types [...] therapy documented in this encounter Care Teams Vice President Marketing & Development Relationship Specialty Start Date End Date Niya Mcknight PA [address] [place] [address] PCP - General Family Medicine 03/11/22 06/01/23 documented as of this encounter
--- OUTSIDE RECORDS SUMMARY | 2024-08-26 09:49 | XMS_ITS | Encounter Summary ---
Author Organization [facility] Address [address] [place] [address] Care Team Providers Care Drilling Foreman Name Role Phone Bob Lyles DO Primary Care Provider Reason for Referral * Referral (Routine) - Closed Specialty Diagnoses / Procedures Referred By Elieser t Referred To Contact Physical Therapy [place] [address] [place] [phone] [facility] [address] [place] [address] Referral ID Status Reason Start Date Expiration Date V isits Requested Visits Authorized [id number] Closed Consult 07/06/2023 1 1 Question Answer Evaluate? Yes Develop Plan of Care? Yes Treatment? Yes Comments kerry Pt/ot Reason for Visit * Reason Comments Dizziness C/o having vertigo f or the last 2-3 weeks. Is wanting a referral to a place in [place] for this. Encounter Details Date Type Department Care Team ([facility] st Contact Info) Description 07/06/2023 8:00 AM CDT Office Visit [facility] [address] [place] [address] [place] [address] [place] [phone] Dizziness (Primary Dx); Hypertension, unspecified type; [...] and let us know. If you utilize [employer], you will likely see test results before [...] wanting a referral to a place in [place] for this. Dizziness - [place], Bob Quiles, DO 07/06/23 1014 Written 53-year-old [...] and let us know. If you utilize [employer], you will likely see test results before [...] Bob Lyles DO 07/06/2023 10:44 AM Disclaimer: [employer] now allows inpatient and outpatient progress notes to be visible to patients. Please note that these notes will include professional medical terminology that may be somewhat confusing without some interpretation from your medical professional team. The intent of progress notes is to communicate information between medical scheduler involved in your care or to serve as future reference for myself or any other provider when reviewing your medical case, as well as a reference for the patient viewing the record. Please ask a member of the medical team if you have any questions about terminology or content of the note. This car sales representative was created in part using CP[employer] voice recognition software, electronically transcribed and electronically signed. Be aware that this car sales representative may contain errors not detected by proofreading. [...] Results * EKG (07/06/2023 9:47 AM CDT) [facility] - 07/06/2023 9:47 AM CDT EKG Report Date: ??07/06/23 Time: ??09:20 Previous EKG available for comparison: Yes: 2013 The EKG showed a normal sinus rhythm with a ventricular rate of 69 bpm. ??LA interval normal at 170 ms. ??QRS duration normal at 102 ms. ??QT and QTC intervals are within normal range. ??R axis is normal at 78 degrees. ??There is no evidence of acute ST or T-wave changes. ??There is no voltage criteria for left ventricular hypertrophy. Bob Lyles DO 07/13/2023 3:58 PM Bob Lyles DO ECG ORDERABLES Performing Organization Address [facility] de Phone Number [address] * MAGNESIUM (07/06/2023 9:07 AM CDT) Magnesium 2.2 1.9 - 2.7 MG/DL [facility] [employer] Blood 07/06/2023 9:07 AM CDT 07/06/2023 9:10 AM CDT Bob Lyles DO CHEMISTRY ORDERABLES Performing Organization Address [facility] Phone Number [facility] [employer] [address] [place] [address] * TSH THIRD GENERATION (07/06/2023 9:07 AM CDT) TSH 1.27 0.05-3.70 FEMALES, 1ST TRIMESTER 0.31-4.35 FEMALES, 2ND TRIMESTER 0.41-5.18 FEMALES, 3RD TRIMESTER 0.45 - 5.33 uIU/mL [facility] [employer] Blood 07/06/2023 9:07 AM CDT 07/06/2023 9:10 AM CDT Bob Lyles DO CHEMISTRY ORDERABLES Performing Organization Address [facility] de Phone Number [facility] [employer] [address] [place] [address] * (ABNORMAL) CBC W AUTO DIFF (07/06/2023 9:07 AM CDT) White Blood Cell Count 5.3 4.8 - 9.6 THOUS/uL [facility] Red Blood Cell Count 5.25 4.33 - 5.59 MIL/uL [facility] Hemoglobin 16.8 13.1 - 16.8 GM/DL [facility] Hematocrit 49.6(H) 38.8 - 49.0 % [facility] Mean Corpuscular Volume 94.5(H) 82.7 - 94.4 [facility] Mean Corpuscular Hemoglobin 32.0 27.7 - 32.6 PG [facility] Mean Corpuscular Hemoglobin Conc 33.9 32.4 - 35.7 G/DL [facility] Rdwcv 12.1 11.6 - 13.9 % [facility] Rdwsd 42.0 36.0 - 46.1 [facility] Platelet Count 210 154 - 364 THOUS/uL [facility] Mean Platelet Volume 9.8 8.7 - 11.7 [facility] Differential Type AUTO FE [facility] Neutrophils 63.9 34.0 - 67.9 % [facility] Lymphs 22.7 19.1 - 41.2 % [facility] Monocytes 9.9 6.1 - 12.3 % [facility] Eos 1.7 0.9 - 7.6 % [facility] Basos 1.0 0.2 - 1.5 % [facility] Neutrophils Absolute Count 3.4 2.7 - 5.8 THOUS/uL [facility] Lymphocytes Absolute Count 1.2 1.1 - 3.3 THOUS/uL [facility] Monocytes Absolute Count 0.5 0.4 - 0.9 THOUS/uL [facility] Eosinophils Absolute Count 0.1 0.1 - 0.6 THOUS/uL [facility] Basophils Absolute Count 0.1 0.0 - 0.1 THOUS/uL [facility] Imm Gran 0.8 0.2 - 0.9 % [facility] Abs Imm Gran 0.04 0.0 - 0.1 THOUS/uL [facility] Blood 07/06/2023 9:07 AM CDT 07/06/2023 9:10 AM CDT Bbo Etta Lyles DO HEMATOLOGY ORDERABLE S Performing Organization Address City/State/[facility] Co de Phone Number [facility] [address] * (ABNORMAL) COMPREHENSIVE METABOLIC PANEL (07/06/2023 9:07 AM CDT) Glucose 107 74 - 109 MG/DL [facility] Blood Urea Nitrogen 13 7 - 25 MG/DL [facility] Creatinine 1.3 0.6 - 1.3 MG/DL [facility] Sodium 140 136 - 145 MMOL/L [facility] Potassium 3.9 3.5 - 5.1 MMOL/L [facility] Chloride 102 98 - 107 MMOL/L [facility] Co2 33(H) 21 - 31 MMOL/L [facility] Calcium 9.3 8.6 - 10.3 MG/DL [facility] Protein Total 7.1 6.4 - 8.9 G/DL [facility] Albumin 4.6 3.5 - 5.7 G/DL [facility] A/G Ratio 1.8 0.8 - 2.0 [facility] Alkaline Phosphatase 69 34 - 104 U/L [facility] Alt (SGPT) 20 7 - 52 U/L [facility] AST(SGOT) 16 13 - 39 U/L [facility] Bilirubin, Total 1.2(H) 0.3 - 1.0 MG/DL [facility] GFR Comment IF PATIENT IS , MULTIPLY RESULT BY 1.16 [facility] Est GFR 63(L) >90 ML/MIN/1. 73sq.m [facility] Blood 07/06/2023 9:07 AM CDT 07/06/2023 9:10 AM CDT Bob Lyles DO CHEMISTRY ORDERABLES [facility] [address] documented in this encounter Visit Diagnoses Diagnosis Dizziness- Primary Dizziness and giddiness Hypertension, unspecified type Palpitations IGGY (generalized anxiety disorder) Generalized anxiety disorder Dizziness Dizziness and giddiness Palpitations documented in this encounter Care Teams Drilling Foreman Relationship Specialty [place] [address] [place] [phone] PCP - General Family Medicine 06/02/23 08/10/23 documented as of this encounter
--- OUTSIDE RECORDS SUMMARY | 2024-08-26 09:49 | XMS_ITS | Encounter Summary ---
Author Organization [facility] Address [address] [place] [address] Care Team Providers Care Analytical Lead Name Role Phone Joanna Mckeon NP Primary Care Provider [phone] Reason for Visit * Reason Comments Medication Refill Encounter Details Date Type Department Care Team (Late st Contact Info) Description 10/02/2023 Refill [facility] Urology [address] [place] [phone] Hi Deluna MD [address] [place] [phone] Medication Refill Social History Tobacco Use [...] hypofunction documented in this encounter Care Teams Analytical Lead Relationship Specialty Start Date End Date Joanna Mckeon NP [address] [place] [address] PCP - General Physician Onshore Diver 08/31/23 documented as of this encounter
--- OUTSIDE RECORDS SUMMARY | 2024-08-26 09:49 | XMS_ITS | Encounter Summary ---
Author Organization [facility] Address [address] [place] [address] Care Team Providers Care Sleeping Car Porter Name Role Phone Rafal Mandybilly Quiles DO Primary Care Provider Encounter Details Date Type Department Care Team (Latest Contact Info) Description 08/02/2023 2:00 PM EXERCISE INSTRUCTOR Lab/X-Ray Only [facility] Lab [address] [place] [address] Hi Deluna MD [address] [place] [address] Testosterone deficiency; Male hypogonadism Social [...] MISC REF LAB Routine 08/02/2023 1:54 PM EXERCISE INSTRUCTOR Male hypogonadism PSA TOTAL, DIAGNOSTIC Routine 08/02/2023 1:49 PM EXERCISE INSTRUCTOR Testosterone deficiency documented in this encounter Results * MISC REF LAB (08/02/2023 1:54 PM EXERCISE INSTRUCTOR) Miscellaneous Ref Lab DONE [facility] Blood 08/02/2023 1:54 PM EXERCISE INSTRUCTOR 08/02/2023 1:57 PM EXERCISE INSTRUCTOR Hi Deluna MD LAB SEND OUT ORDERABLES Performing Organization Address [facility] Co de Phone Number [facility] [address] [place] [address] * PSA TOTAL, DIAGNOSTIC (08/02/2023 1:49 PM EXERCISE INSTRUCTOR) Prostate Specific Antigen Total 0.64 0 - 4.0 NG/ML [facility] PSA Comment SEE NOTES [facility] Comment: The Access Hybritech PSA assay is a paramagnetic particle, chemiluminescent immunoassay for the quantitative determination of prostate specific antigen (PSA) levels in human serum using the [employer] Immunoassay Systems. Blood 08/02/2023 1:49 PM EXERCISE INSTRUCTOR 08/02/2023 1:53 PM EXERCISE INSTRUCTOR Hi Deluna MD CHEMISTRY ORD ERABLES Performing Organization Address [facility]/ZIP Co de Phone Number [facility] [address] [place] [address] documented in this encounter Visit Diagnoses Diagnosis Testosterone deficiency Other testicular hypofunction Male hypogonadism Other testicular hypofunction documented in this encounter Care Teams Sleeping Car Porter Relationship Specialty Start Date End Date Mandy Lyles DO [address] [place] [phone] PCP - General Family Medicine 06/02/23 08/10/23 documented as of this encounter
--- OUTSIDE RECORDS SUMMARY | 2024-08-26 09:49 | XMS_ITS | Encounter Summary ---
Author Organization [facility] Address [address] [place] [address] Care Team Providers Care Scenic Artist Name Role Phone Mandy Lyles DO Primary Care Provider [phone] Encounter Details Date Type Department Care Team (Late st Contact Info) Description 06/04/2023 Letter (Out) [facility] [address] [place] [address] Social History Tobacco Use Types [...] on filedocumented in this encounter Care Teams Scenic Artist Relationship Specialty Start Date End Date Mandy Lyles DO [address] [place] [address] PCP - General Family Medicine 06/02/23 08/10/23 documented as of this encounter
--- OUTSIDE RECORDS SUMMARY | 2024-08-26 09:49 | XMS_ITS | Encounter Summary ---
Author Organization [facility] Address [address] [place] [address] Care Team Providers Care Substance Abuse Nurse Name Role Phone Niya Mcknight Primary Care Provider [phone] Reason for Visit * Reason Comments Follow-up [...] Description 04/07/2023 1:15 PM CDT Office Visit [facility] [address] [place] [address] Niya Mcknight PA [address] [place] [address] Depression, unspecified depression type; Cigarette [...] sent through Care Everywhere. * Alcohol Dependence (Two Way Radio Installer) (Vincentian) * Generalized Anxiety Disorder (Two Way Radio Installer) (Vincentian) * How to Stop Smoking (Discharge Care) (Vincentian) documented in this encounter Progress Notes * Niya Mcknigth PA - 04/07/2023 1:15 PM CDT Images [...] with the restrictions. Was changed to naltraone. [id number]. Started drinking in high school. Age 20. [...] with the restrictions. Was changed to naltraone. [id number]. Started drinking in high school. Age 20. [...] visit. JI Vasquez 04/19/2023 11:22 AM This bulk plant supervisor was electronically signed. It was dictated by use of voice recognition software and electronically transcribed. The bulk plant supervisor may contain errors not detected in proofreading. [...] with the restrictions. Was changed to naltraone. [id number]. Started drinking in high school. Age 20. [...] disorder documented in this encounter Care Teams Substance Abuse Nurse Relationship Specialty Start Date End Date Niya Mcknight PA [address] [place] [address] PCP - General Family Medicine 03/11/22 06/01/23 documented as of this encounter
--- OUTSIDE RECORDS SUMMARY | 2024-08-26 09:49 | XMS_ITS | Encounter Summary ---
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
--- OUTSIDE RECORDS SUMMARY | 2024-08-26 09:49 | XMS_ITS | Encounter Summary ---
Author Organization [facility] Address [address] [place] [address] Care Team Providers Care Extrusion Operator Name Role Phone Joanna Mckeon NP Primary Care Provider [phone] Reason for Visit * Reason Comments Fall Ankle Pain Encounter Details Date Type Department Care Team (Late st Contact Info) Description 08/13/2024 2:00 PM ELEMENTARY CLASSROOM TEACHER - 08/13/2024 3:57 PM [facility] Emergency [facility] Emergency Department [address] [place] [address] Closed fracture of distal end [...] Comments Blood Pressure 148/82 08/13/2024 3:56 PM ELEMENTARY CLASSROOM TEACHER Pulse 79 08/13/2024 3:56 PM ELEMENTARY CLASSROOM TEACHER Temperature 36.1 ??C (97 ??F) 08/13/2024 3:56 PM ELEMENTARY CLASSROOM TEACHER Respiratory Rate 16 08/13/2024 3:56 PM ELEMENTARY CLASSROOM TEACHER Oxygen Saturation 98% 08/13/2024 3:56 PM ELEMENTARY CLASSROOM TEACHER Inhaled Oxygen Concentration - - Weight 81.6 kg (180 lb) 08/13/2024 2:06 PM ELEMENTARY CLASSROOM TEACHER Height 177.8 cm (5' 10 ) 08/13/2024 2:06 PM ELEMENTARY CLASSROOM TEACHER Body Mass Index 25.83 08/13/2024 2:06 PM ELEMENTARY CLASSROOM TEACHER documented in this encounter Discharge Instructions * Attachments The following attachments cannot be sent through Care Everywhere. * Leg Fracture ([facility](R) Instructions(ER/ED)) (Japanese) documented in this encounter Medications at Time [...] vitals stable, no complaints or concerns voiced. ENTARY CLASSROOM TEACHER * Maria De Jesus Rascon RN - 08/13/2024 3:[address] Bai ordered to give patient two norco 7.5mg tablets to take home with him due to pharmacy being closed. Patient instructed on medication administration and side effects. ENTARY CLASSROOM TEACHER * Maria De Jesus Rascon RN - 08/13/2024 2:43 PM CST Patient states he is not taking his Naltrexone. When asked when he stopped patient states he has not taken it in over a month, ENTARY CLASSROOM TEACHER * Jordan Bai MD - 08/13/2024 2:38 PM CST Images from the original note were not included. [facility] Emergency Room General Encounter CHIEF [...] No Social Determinants of Health Received from [facility], [facility] Family and Community Support Received from [facility] Abuse Screen Received from [facility] Housing Stability SURGICAL HISTORY Past Surgical History: [...] by: Maximo Rain MD 08/13/2024 02:39 PM [facility] CT HEAD WO CONTRAST Final Result by [...] by: Maximo Rain MD 08/13/2024 02:39 PM ELEMENTARY CLASSROOM TEACHER RP COURSE & MEDICAL DECISION MAKING No results found for this or any previous visit (from the past 24 hour(s)). Old charts were reviewed per [facility] E[employer]. Pertinent details are summarized above. All [...] MD Bhumika Ayala Joshua, MD 08/13/24 1443 ENTARY CLASSROOM TEACHER documented in this encounter Miscellaneous Notes * Triage Assessment - Maria De Jesus Rascon RN - 08/13/2024 2:07 PM CST Patient to ED with complaints of a fall and right ankle injury on Wednesday. Patient states he fellin his bathroom and hit his head on the toilet and twisted his ankle. Patient denies LOC. Only complaint is right ankle pain and swelling ENTARY CLASSROOM TEACHER documented in this encounter Plan of Treatment Not on file documented as of this encounter Procedures Procedure Name Priority Date/Time Associated Diagnosis Comments CT CERVICAL SPINE WO CONTRAST STAT 08/13/2024 3:22 PM ELEMENTARY CLASSROOM TEACHER XR ANKLE RIGHT MIN 3 VIEWS STAT 08/13/2024 2:28 PM ELEMENTARY CLASSROOM TEACHER CT HEAD WO CONTRAST STAT 08/13/2024 2 :28 PM ELEMENTARY CLASSROOM TEACHER documented in this encounter Results * CT CERVICAL SPINE WO CONTRAST (08/13/2024 3:22 PM ELEMENTARY CLASSROOM TEACHER) Anatomical Region Laterality Modality C-spine Computed Tomogra phy 08/13/2024 3:12 PM ELEMENTARY CLASSROOM TEACHER Narrative 08/13/2024 3:33 PM ELEMENTARY CLASSROOM TEACHER EXAM: CT CERVICAL SPINE WO CONTRAST CLINICAL [...] by: ??Maximo Rain MD ??08/13/2024 03:33 PM ELEMENTARY CLASSROOM TEACHER RP Procedure Note Maximo Rain MD - 08/13/2024 EXAM: CT CERVICAL SPINE WO CONTRAST CLINICAL INDICATION: Patient fell COMPARISON: There is no previous study for comparison. TECHNIQUE: CT scan of the cervical spine was done using contiguous [id number] sections through the cervical spine with sagittal [...] by: Maximo Rain MD 08/13/2024 03:33 PM ELEMENTARY CLASSROOM TEACHER RPWorkstation: [id number] Jordan Bai MD [facility] CT ORDERABLE S * XR ANKLE RIGHT MIN 3 VIEWS (08/13/2024 2:28 PM ELEMENTARY CLASSROOM TEACHER) Anatomical Region Laterality Modality Ankle Radiographic Matilda ging 08/13/2024 2:28 PM ELEMENTARY CLASSROOM TEACHER Narrative 08/13/2024 2:39 PM ELEMENTARY CLASSROOM TEACHER EXAM: XR ANKLE RIGHT MIN 3 VIEWS CLINICAL INDICATION: Patient fell COMPARISON: There is no previous study for comparison. FINDINGS: 3 views of the right ankle reveal a fracture of the distal fibula with 3 mm displacement. No other fracture or dislocation is seen. IMPRESSION: Fracture of the distal right fibula. Electronically signed by: ??Maximo Rain MD ??08/13/2024 02:39 PM ELEMENTARY CLASSROOM TEACHER RP Procedure Note Maximo Rain MD - [...] by: Maximo Rain MD 08/13/2024 02:39 PM ELEMENTARY CLASSROOM TEACHER RPWorkstation: [id number] Jordan Bai MD [facility] DIAG ORDERAB LES * CT HEAD WO CONTRAST (08/13/2024 2:28 PM ELEMENTARY CLASSROOM TEACHER) Anatomical Region Laterality Modality Head Computed Tomogra phy 08/13/2024 2:28 PM ELEMENTARY CLASSROOM TEACHER Narrative 08/13/2024 2:39 PM ELEMENTARY CLASSROOM TEACHER EXAM: CT HEAD WO CONTRAST CLINICAL INDICATION: [...] by: ??Maximo Rain MD ??08/13/2024 02:39 PM [facility] RP Procedure Note Maximo Rain MD [...] by: Maximo Rain MD 08/13/2024 02:39 PM [facility] RPWorkstation: [id number] Jordan Bai MD [facility] CT ORDERABLE S documented in this encounter [...] in 24 hours. Given 08/13/2024 3:15 PM ELEMENTARY CLASSROOM TEACHER 2 tablets documented in this encounter Active and Recently Administered Medications Times are shown in ELEMENTARY CLASSROOM TEACHER. Scheduled Medication Order 08/11/2024 08/12/2024 08/13/2024 HYDROcodone-acetaminophen [...] MD) documented in this encounter Care Teams Extrusion Operator Relationship Specialty Start Date End Date Joanna Mckeon NP [address] [place] [address] PCP - General Physician Spinneret Cleaner 08/31/23 documented as of this encounter
--- OUTSIDE RECORDS SUMMARY | 2024-08-26 09:49 | XMS_ITS | Encounter Summary ---
Author Organization [facility] Address [address] [place] [address] Care Team Providers Care Brand Designer Name Role Phone Mandy Lyles DO Primary Care Provider Reason for Referral * Referral (Routine) - Closed Specialty Diagnoses / Procedures Referred By Contac t Referred To Contact Surgical Services Diagnoses Screening for colon cancer Mandy Lyles DO [address] [place] [phone] [facility] Surgical [facility] [address] [place] [address] Referral ID Status Reason Start Date Expiration Date V isits Requested Visits Authorized [id number] Closed Consult 06/02/2023 1 1 Comments Screening colonoscopy * Psychiatric (Routine) - Closed Specialty Diagnoses / Procedures Referred By Contac t Referred To Contact Psychiatry Diagnoses IGGY (generalized anxiety disorder) Mandy Lyles DO [address] [place] [phone] [address] Referral ID Status Reason Start Date Expiration Date V isits Requested Visits Authorized [id number] Closed Consult 06/02/2023 1 1 Comments [facility] med management - IGGY Reason for Visit * Reason Comments Establish Care New patient to [facility]. Was seeing Niya Mcknight PA-C. Alcohol Problem Wants to discuss get ting a prescription for Naltrexone to help him quit drinking. Encounter Details Date Type Department Care Team (Late st Contact Info) Description 06/02/2023 3:00 PM CDT Office Visit [facility] [address] [place] [phone] Mandy Lyles DO [address] [place] [phone] IGGY (generalized anxiety disorder) (Primary Dx); Dyslipidemia; Primary hypertension; Screening for colon cancer; buttermaker prescription benzodiazepine use; Gastroesophageal reflux disease without [...] to physician ordering ethos) -Referral made to [facility] for psychiatry and med management. [...] Relevant Orders AMB REFERRAL TO COLORECTAL SURGERY assisted prescription benzodiazepine use Relevant Orders ETHOS DRUG [...] Mandy Lyles DO 06/02/2023 4:37 PM Disclaimer: [employer] now allows inpatient and outpatient progress notes to be visible to patients. Please note that these notes will include professional medical terminology that may be somewhat confusing without some interpretation from your medical professional team. The intent of progress notes is to communicate information between phlebotomist medical lab assistant involved in your care or to serve as future reference for myself or any other provider when reviewing your medical case, as well as a reference for the patient viewing the record. Please ask a member of the medical team if you have any questions about terminology or content of the note. This clinical office technician was created in part using [employer] voice recognition software, electronically transcribed and electronically signed. Be aware that this clinical office technician may contain errors not detected by [...] to physician ordering ethos) -Referral made to [facility] for psychiatry and med management. [...] SCREEN Lab Routine IGGY (generalized anxiety disorder) assisted prescription benzodiazepine use Expected: 06/02/2023, Expires: 06/02/2024 [...] cancer Special screening for malignant neoplasms, colon assisted prescription benzodiazepine use Gastroesophageal reflux disease without esophagitis Esophageal reflux documented in this encounter Care Teams Brand Designer Relationship Specialty Start Date End Date Mandy Lyles DO [address] [place] [address] PCP - General Family Medicine 06/02/23 08/10/23 documented as of this encounter
--- OUTSIDE RECORDS SUMMARY | 2024-08-26 09:49 | XMS_ITS | Encounter Summary ---
Author Organization [facility] Address [address] [place] [address] Care Team Providers Care Art Glass Designer Name Role Phone Niya Mcknight Primary Care Provider [phone]- [phone] Reason for Visit * Reason Comments Medication Refill Encounter Details Date Type Department Care Team ([facility] st Contact Info) Description 03/17/2023 Refill [facility] [address] [place] [address] Cody Simms PA [address] [place], [place] [id number] Medication Refill Social History Tobacco Use Types [...] therapy documented in this encounter Care Teams Art Glass Designer Relationship Specialty Start Date End Date Niya Mcknight PA [address] [place] [address] PCP - General Family Medicine 03/11/22 06/01/23 documented as of this encounter
--- OUTSIDE RECORDS SUMMARY | 2024-08-26 09:49 | XMS_ITS | Encounter Summary ---
Author Organization [facility] Address [address] [place] [address] Care Team Providers Care Auto Claim Representative Name Role Phone Mandy Lyles DO Primary Care Provider [phone] Reason for Visit * Reason Onset Date Comments Results 08/17/2023 Encounter Details Date Type Department Care Team ([facility] st Contact Info) Description 08/17/2023 Telephone [facility] [address] [place] [address] [place] [address] [place] [phone] Results Social History Tobacco Use Types [...] of normal Zio monitor and voiced understanding. ER MACHINE ADJUSTER * Telephone Encounter - Jesi Loaiza LPN - 08/17/2023 3:36 PM CST ----- Message from Mandy Lyles DO sent at 08/17/2023 10:35 AM FOLDER MACHINE ADJUSTER ----- Please notify patient of normal result. ER MACHINE ADJUSTER documented in this encounter Plan of Treatment Not on file documented as of this encounter Visit Diagnoses Not on filedocumented in this encounter Care Teams Auto Claim Representative Relationship Specialty [place] [address] [place] [phone] PCP - General Family Medicine 08/17/23 08/30/23 documented as of this encounter
--- OUTSIDE RECORDS SUMMARY | 2024-08-26 09:49 | XMS_ITS | Encounter Summary ---
Author Organization [facility] Address [address] [place] [address] Care Team Providers Care Client Support Analyst Name Role Phone Mandy Lyles DO Primary Care Provider Reason for Visit * Reason Comments Medication Refill Encounter Details Date Type Department Care Team ([facility] st Contact Info) Description 07/09/2023 Refill [facility] Family Practice [address] [place] [address] Mandy Lyles DO [address] [place] [address] Medication Refill Social History Tobacco [...] Loaiza LPN - 07/12/2023 10:23 AM CST OBSTETRICAL ANESTHESIOLOGIST printed. E PULLER * Telephone Encounter - Jazmine Richmond - 07/09/2023 3:38 PM CDT PT JOHN VELIZ 74 CALLED BACK INTO THE OFFICE STATING HE WAS WONDERING IF HE COULD POSSIBLY GET HIS MEDICINE REFILLED SINCE HE WILL BE WORKING OUT OF TOWN STARTING EARLY Wednesday MORNING 07/12/23. HE WOULD LIKE A CALL BACK AT [phone] WHEN IT IS SENT. documented in this encounter Plan of Treatment Not on file documented as of this encounter Visit Diagnoses Diagnosis IGGY (generalized anxiety disorder) Generalized anxiety disorder documented in this encounter Care Teams Client Support Analyst Relationship Specialty Start Date End Date Mandy Lyles DO [address] [place] [phone] PCP - General Family Medicine 06/02/23 08/10/23 documented as of this encounter
--- OUTSIDE RECORDS SUMMARY | 2024-08-26 09:49 | XMS_ITS | Encounter Summary ---
Author Organization [facility] Address [address] [place] [address] Care Team Providers Care Personal Companion Name Role Phone Joanna Mckeon NP Primary Care Provider [phone]- [phone] Reason for Visit * Reason Onset Date Comments Referral 08/14/2024 Encounter Details Date Type Department Care Team (Late st Contact Info) Description 08/14/2024 Telephone [facility] [address] [place] [address] Dina Madrigal NP [address] [place] [address] Referral Social History Tobacco Use [...] Padmini Rodriguez LPN - 08/14/2024 8:19 AM MARINE EQUIPMENT SALES ENGINEER Patient called back and schedule with Karen Madrigal for 08/21 NE EQUIPMENT SALES ENGINEER * Telephone Encounter - Padmini Rodriguez LPN - 08/14/2024 8:16 AM MARINE EQUIPMENT SALES ENGINEER Attempt X1 to schedule 1 week f/u with Karen Madrigal: ASSEMBLER TUBING; closed fx of distal end of right fibula. Seen in ED on 08/13. XR PRIOR. No answer, unable to leave vm. NE EQUIPMENT SALES ENGINEER documented in this encounter Plan of Treatment Not on file documented as of this encounter Visit Diagnoses Not on filedocumented in this encounter Care Teams Personal Companion Relationship Specialty Start Date End Date Joanna Mckeon NP [address] [place] [address] [address] [phone] PCP - General Physician Rough Carpenter 08/31/23 documented as of this encounter
--- OUTSIDE RECORDS SUMMARY | 2024-08-26 09:49 | XMS_ITS | Encounter Summary ---
Author Organization [facility] Address [address] [place] [address] Care Team Providers Care Defence Force Senior Officer Name Role Phone Joanna Mckeon COUNTY TAX ASSESSOR Primary Care Provider [phone]- [phone] Encounter Details Date Type Department Care Team (Late st Contact Info) Description 08/21/2024 Orders Only [facility] [address] [place] [address] Dina Madrigal NP [address] [place] [address] Closed fracture of distal end [...] Primary documented in this encounter Care Teams Defence Force Senior Officer Relationship Specialty Start Date End Date Joanna Mckeon NP [address] [place] [address] [address] [place] [address] PCP - General Physician Cardiac Cath Tech 08/31/23 documented as of this encounter
--- OUTSIDE RECORDS SUMMARY | 2024-08-26 09:49 | XMS_ITS | Encounter Summary ---
Author Organization [facility] Address [address] [place] [address] Care Team Providers Care Language And Literature Division Chair Name Role Phone Niya Mcknight Primary Care Provider [phone]- [phone] Reason for Visit * Reason Comments Follow-up Here for 6 week foll ow up post seeing Dr. Lyles. Encounter Details Date Type Department Care Team (Late st Contact Info) Description 03/10/2023 2:30 PM CDT Office Visit [facility] [address] [place] [address] [place] [address] [place] [address] Hypertension, unspecified type (Primary Dx); IGGY [...] doing better when he was living in [place]. States that his stressors are much less when he is in [place] but since returning to [place] is having some difficulties. Patient's blood pressure [...] TREATMENT - IGGY (generalized anxiety disorder) - Niay Mcknight PA 03/11/23 1420 Edited Patient has been tried on multiple medications in the past including lexapro, buspar, Effexor. Is currently on Xanax p.r.n.. However patient is now having to take this on a daily basis. Had been doing better when he was living in [place]. States that his stressors are much less when he is in [place] but since returning to [place] is having some difficulties. Patient's blood pressure [...] visit. JI Vasquez 03/11/2023 2:21 PM This technical trainer was electronically signed. It was dictated by use of voice recognition software and electronically transcribed. The technical trainer may contain errors not detected in proofreading. [...] doing better when he was living in [place]. States that his stressors are much less when he is in [place] but since returning to [place] is having some difficulties. Patient's blood pressure [...] disorder documented in this encounter Care Teams Language And Literature Division Chair Relationship Specialty Start Date End Date Niya Mcknight PA [address] [place] [address] PCP - General Family Medicine 03/11/22 06/01/23 documented as of this encounter
--- OUTSIDE RECORDS SUMMARY | 2024-08-26 09:49 | XMS_ITS | Clinical Summary ---
Author Organization [facility] Address [address] [place] [address] Care Team Providers Care Welding Machine Assembler Name Role Phone Joanna Mckeon FILM WRITER Primary Care Provider +1- [phone] Allergies Active Allergy Reactions Criticality Noted Date [...] 09/21/2022 Assessment & Plan (10/22/2022 4:31 PM PENETRATION TESTER): Currently on Depo testosterone 200 milligram/mL 1 mL q.12 days and Clomid 50 mg TIW. Patient had been seen neurologist in [facility]. Had started seeing Cody Simms at this facility for awhile. Cody is currently no longer available. Patient is willing to reestablish with urology but would like to do so closer to home. Continue same at present. Referral to urology Assessment & Plan (09/23/2022 12:41 PM PENETRATION TESTER): Was seen by urology in the past. [...] CDT): Was diagnosed with low testosterone in [facility] in 2017. Has been adjusted over time [...] appointment Assessment & Plan (10/22/2022 4:29 PM PENETRATION TESTER): Last 3 Lipid Profile ValuesRecent Labs Lab [...] diet Assessment & Plan (09/23/2022 12:40 PM PENETRATION TESTER): Currently not on any cholesterol medication Last [...] 12/13/2017 Assessment & Plan (10/22/2022 4:30 PM PENETRATION TESTER): Vitamin D 25-Hydroxy Date Value Ref Range Status 10/17/2022 30.00 - 100.00 mg/dL Final 39.9 <20 Deficient 20-29 Insufficient 30-100 Sufficient >100 Upper Safety Limit Currently on vitamin-D 5000 IU daily. Denies any adverse side effects to current medication regimen continue same Assessment & Plan (09/23/2022 12:40 PM PENETRATION TESTER): Currently takes vitamin-D 5000 IU daily. Obtain [...] to physician ordering ethos) -Referral made to [facility] for psychiatry and med management. Discussed [...] doing better when he was living in [place]. States that his stressors are much less when he is in [place] but since returning to [place] is having some difficulties. Patient's blood pressure [...] and . Patient voices understanding. -Continue same. SALESFORCE DEVELOPER reviewed no discrepancies. Refills Xanax 1 mg PO TID # 90 with 1 refill. - Follow up with Niya Mcknight PA-C in 2-3 months Assessment & Plan (10/22/2022 4:29 PM PENETRATION TESTER): Patient now seen Dr. Tanner for counseling. [...] months Assessment & Plan (09/23/2022 12:40 PM PENETRATION TESTER): Patient currently on Xanax 0.5 mg t.i.d. p.r.n.. States that he takes Xanax about 4 days per week. States he does try to take holidays from this. Has tried multiple SSRIs in the past without improvement. Has recently come back to the area from [place]. Is getting back into counseling. Denies any overt panic attacks. States he has more of a constant anxious feeling on the days that he has trouble. Denies any depression or suicide ideation. SALESFORCE DEVELOPER reviewed. No concerns noted. Is current on medication contract and drug screen. Last drug screen did show ethanol. Discuss this with patient. States that he is no longer drinking. Will continue same. Will get back in with counseling at [facility]. Did explain to patient that if he had accelerating need for anxiolytic that he would need to see Psychiatry. Assessment & Plan (04/01/2022 3:09 PM CDT): Patient currently on Xanax 0.5 mg t.i.d. p.r.n.. Has had anxiety for many years. Has done counseling in the past. Was seeing Kenrick Kincaid @ [facility]. States he has not seen him for some time but is willing to go back. Patient relates history of being seen in the emergency room here at [facility] for bursitis. Patient also seen at [facility] on March 14, 2022 in the [...] due for medication contract and drug screen. SALESFORCE DEVELOPER reviewed and no concerns noted. Medication contract [...] is doing well on current medication regimen. SALESFORCE DEVELOPER reviewed low risk with no concerned. Patient does not need any controlled substance filled at this time. Will continue with current medication regimen. Will follow-up in 3 months for recheck. Plan to obtain drug screening medication contract at that time. Resolved Problems Problem Noted Date Diagnosed Date Resolved Date Anxiety 08/09/2014 03/02/2017 Encounters Date Type Department Care Team Description 08/21/2024 Orders Only [facility] [address] [place] [phone] Dina Madrigal NP Closed fracture of distal end of right fibula, unspecified fracture morphology, initial encounter (Primary Dx) 08/14/2024 Telephone [facility] [address] [place] [phone] Dina Madrigal NP Referral 08/13/2024 2:00 PM PENETRATION TESTER - 08/13/2024 3:57 PM [facility] Emergency [facility] Emergency Department [address] [place] [phone] Closed fracture of distal end of right fibula, unspecified fracture morphology, initial encounter (Primary Dx) Discharge Disposition: Home 05/27/2024 10:30 AM CDT Office Visit [facility] Family Practice [address] [place] [phone] Niya Mireles NP Influenza A (Primary Dx); [...] Comments Blood Pressure 148/82 08/13/2024 3:56 PM PENETRATION TESTER Pulse 79 08/13/2024 3:56 PM PENETRATION TESTER Temperature 36.1 ??C (97 ??F) 08/13/2024 3:56 PM PENETRATION TESTER Respiratory Rate 16 08/13/2024 3:56 PM PENETRATION TESTER Oxygen Saturation 98% 08/13/2024 3:56 PM PENETRATION TESTER Inhaled Oxygen Concentration - - Weight 81.6 kg (180 lb) 08/13/2024 2:06 PM PENETRATION TESTER Height 177.8 cm (5' 10 ) 08/13/2024 2:06 PM PENETRATION TESTER Body Mass Index 25.83 08/13/2024 2:06 PM PENETRATION TESTER Plan of Treatment Health Maintenance Due Date [...] this topic MENINGOCOCCAL VACCINE Aged Out No laex ovi eligible based on patient's age to complete this topic ROTAVIRUS VACCINES Aged Out No longer eligible based on patient's age to complete this topic Procedures Procedure Name Priority Date/Time Associated Diagnosis Comments CT CERVICAL SPINE WO CONTRAST STAT 08/13/2024 3:22 PM PENETRATION TESTER XR ANKLE RIGHT MIN 3 VIEWS STAT 08/13/2024 2:[address] HEAD WO CONTRAST STAT 08/13/2024 2 :28 PM PENETRATION TESTER POCT INFLUENZA A/B Routine 05/27/2024 3: 47 PM CDT Cough, unspecified type LIPID PROFILE Routine 10/17/2022 8:58 AM PENETRATION TESTER IGGY (generalized anxiety disorder) Dyslipidemia HEMOGLOBIN A1C Routine 09/07/2018 12:06 PM PENETRATION TESTER Hyperglycemia from Last 3 Months or Most Recently Relevant to Health Maintenance Results * CT CERVICAL SPINE WO CONTRAST (08/13/2024 3:22 PM PENETRATION TESTER) Anatomical Region Laterality Modality C-spine Computed Tomogra phy 08/13/2024 3:12 PM PENETRATION TESTER Narrative 08/13/2024 3:33 PM PENETRATION TESTER EXAM: CT CERVICAL SPINE WO CONTRAST CLINICAL [...] by: ??Maximo Rain MD ??08/13/2024 03:33 PM PENETRATION TESTER RP Procedure Note Maximo Rain MD - 08/13/2024 EXAM: CT CERVICAL SPINE WO CONTRAST CLINICAL INDICATION: Patient fell COMPARISON: There is no previous study for comparison. TECHNIQUE: CT scan of the cervical spine was done using contiguous [id number] sections through the cervical spine with sagittal [...] by: Maximo Rain MD 08/13/2024 03:33 PM PENETRATION TESTER RPWorkstation: [id number] Jordan Bai MD [facility] IMG CT ORDERABLE S * XR ANKLE RIGHT MIN 3 VIEWS (08/13/2024 2:28 PM PENETRATION TESTER) Anatomical Region Laterality Modality Ankle Radiographic Matilda ging 08/13/2024 2:28 PM PENETRATION TESTER Narrative 08/13/2024 2:39 PM PENETRATION TESTER EXAM: XR ANKLE RIGHT MIN 3 VIEWS CLINICAL INDICATION: Patient fell COMPARISON: There is no previous study for comparison. FINDINGS: 3 views of the right ankle reveal a fracture of the distal fibula with 3 mm displacement. No other fracture or dislocation is seen. IMPRESSION: Fracture of the distal right fibula. Electronically signed by: ??Maximo Rain MD ??08/13/2024 02:39 PM PENETRATION TESTER RP Procedure Note Maximo Rain MD - [...] by: Maximo Rain MD 08/13/2024 02:39 PM PENETRATION TESTER RPWorkstation: [id number] Jordan Bai MD [facility] IM DIAG ORDERAB LES * CT HEAD WO CONTRAST (08/13/2024 2:28 PM PENETRATION TESTER) Anatomical Region Laterality Modality Head Computed Tomogra phy 08/13/2024 2:28 PM PENETRATION TESTER Narrative 08/13/2024 2:39 PM PENETRATION TESTER EXAM: CT HEAD WO CONTRAST CLINICAL INDICATION: [...] by: ??Maximo Rain MD ??08/13/2024 02:39 PM PENETRATION TESTER RP Procedure Note Maximo Rain MD - [...] by: Maximo Rain MD 08/13/2024 02:39 PM PENETRATION TESTER RPWorkstation: [id number] Jordan Bai MD [facility] CT ORDERABLE S * POCT INFLUENZA A/B (05/27/2024 3:47 PM CDT) Influenza A Ab pos [facility] Influenza B Ab neg [facility] 05/27/2024 3:47 PM CDT Niya Mireles NP POINT OF CARE TEST O RDERABLES Performing Organization Address City/State/[facility] Co de Phone Number [address] * (ABNORMAL) LIPID PROFILE (10/17/2022 8:58 AM PENETRATION TESTER) Cholesterol 187 0 - 200 MG/DL [facility] Triglycerides 208(H) <150 MG/DL [facility] HDL 62 23 - 92 MG/DL [facility] LDL Cholesterol 83 <130 MG/DL [facility] LDL/HDL Ratio 1.34 [facility] VLDL, Calc 42(H) 5 - 40 MG/DL [facility] LDL, High [...] WILL FURTHER MODIFY THE RELATIVE RISK RATIO. [facility] Blood 10/17/2022 8:58 AM PENETRATION TESTER 10/17/2022 9:03 AM PENETRATION TESTER Niya WORKMAN CHEMISTRY ORDERABL ES Performing Organization Address City/State/[facility] Co de Phone Number [facility] [address] * HEMOGLOBIN A1C (09/07/2018 12:06 PM PENETRATION TESTER) Hemoglobin A1C 5.6 4.5 TO 6.2 % [facility] Blood 09/07/2018 12:0 6 PM PENETRATION TESTER Cody WORKMAN CHEMISTRY ORDERABLE S Performing Organization Address [facility] Co de Phone Number [facility] [address] [place] [address] from Last 3 Months or Most Recently Relevant to Health Maintenance Care Teams Welding Machine Assembler Relationship Specialty Start Date End Date Joanna Mckeon NP [facility] [address] [place] [address] PCP - General Physician Ux Specialist 08/31/23
--- OUTSIDE RECORDS SUMMARY | 2024-08-26 09:49 | XMS_ITS | Encounter Summary ---
Author Organization [facility] Address [address] [place] [address] Care Team Providers Care District Commercial Superintendent Name Role Phone Mandy Lyles DO Primary Care Provider [phone] Encounter Details Date Type Department Care Team (Late st Contact Info) Description 07/06/2023 9:15 AM CDT Lab/[facility] Only [facility] [address] [place] [address] Mandy Lyles DO [address] [place] [address] Dizziness; Palpitations Social History Tobacco [...] CDT) Magnesium 2.2 1.9 - 2.7 MG/DL [facility] Blood 07/06/2023 9:07 AM CDT 07/06/2023 9:10 AM CDT Mandy Lyles DO CHEMISTRY ORDERABLES Performing Organization Address City/[facility]/ZIP Co de Phone Number [facility] [address] [place] [address] * TSH THIRD GENERATION (07/06/2023 9:07 AM CDT) TSH 1.27 0.05-3.70 FEMALES, 1ST TRIMESTER 0.31-4.35 FEMALES, 2ND TRIMESTER 0.41-5.18 FEMALES, 3RD TRIMESTER 0.45 - 5.33 uIU/mL [facility] Blood 07/06/2023 9:07 AM CDT 07/06/2023 9:10 AM CDT Mandy Lyles DO CHEMISTRY ORDERABLES Performing Organization Address [facility] Co de Phone Number [facility] [employer] [address] [place] [address] * (ABNORMAL) CBC W AUTO DIFF (07/06/2023 9:07 AM CDT) White Blood Cell Count 5.3 4.8 - 9.6 THOUS/uL [facility] Red Blood Cell Count 5.25 4.33 - 5.59 MIL/uL [facility] Hemoglobin 16.8 13.1 - 16.8 GM/DL [facility] Hematocrit 49.6(H) 38.8 - 49.0 % [facility] Mean Corpuscular Volume 94.5(H) 82.7 - 94.[address] [facility] Mean Corpuscular Hemoglobin 32.0 27.7 - 32.[address] [facility] Mean Corpuscular Hemoglobin Conc 33.9 32.4 - 35.7 G/DL [facility] Rdwcv 12.1 11.6 - 13.9 % [facility] Rdwsd 42.0 36.0 - 46.[address] [facility] Platelet Count 210 154 - 364 THOUS/uL [facility] Mean Platelet Volume 9.8 8.7 - 11.7 [facility] Differential Type AUTO FE [facility] Neutrophils 63.9 34.0 - 67.9 % [facility] Lymphs 22.7 19.1 - 41.2 % [facility] Monocytes 9.9 6.1 - 12.3 % [facility] Eos 1.7 0.9 - 7.6 % [facility] Basos 1.0 0.2 - 1.5 % [facility] Neutrophils Absolute Count 3.4 2.7 - 5.8 THOUS/uL [facility] Lymphocytes Absolute Count 1.2 1.1 - 3.3 THOUS/uL [facility] Monocytes Absolute Count 0.5 0.4 - 0.9 THOUS/uL [facility] Eosinophils Absolute Count 0.1 0.1 - 0.6 THOUS/uL [facility] Basophils Absolute Count 0.1 0.0 - 0.1 THOUS/uL [facility] Imm Gran 0.8 0.2 - 0.9 % [facility] Abs Imm Gran 0.04 0.0 - 0.1 THOUS/uL [facility] Blood 07/06/2023 9:07 AM CDT 07/06/2023 9:10 AM CDT Mandy Lyles DO HEMATOLOGY ORDERABLE S Performing Organization Address City/State/[facility] Co de Phone Number [facility] [address] [place], [place] [address] * (ABNORMAL) COMPREHENSIVE METABOLIC PANEL (07/06/2023 9:07 AM CDT) Glucose 107 74 - 109 MG/DL [facility] Blood Urea Nitrogen 13 7 - 25 MG/DL [facility] Creatinine 1.3 0.6 - 1.3 MG/DL [facility] Sodium 140 136 - 145 MMOL/L [facility] Potassium 3.9 3.5 - 5.1 MMOL/L [facility] Chloride 102 98 - 107 MMOL/L [facility] Co2 33(H) 21 - 31 MMOL/L [facility] Calcium 9.3 8.6 - 10.3 MG/DL [facility] Protein Total 7.1 6.4 - 8.9 G/DL [facility] Albumin 4.6 3.5 - 5.7 G/DL [facility] A/G Ratio 1.8 0.8 - 2.[address] [facility] Alkaline Phosphatase 69 34 - 104 U/L [facility] Alt (SGPT) 20 7 - 52 U/L [facility] AST(SGOT) 16 13 - 39 U/L [facility] Bilirubin, Total 1.2(H) 0.3 - 1.0 MG/DL [facility] GFR Comment IF PATIENT IS , MULTIPLY RESULT BY 1.[address] [facility] Est GFR 63(L) >90 ML/MIN/1. 73sq.m [facility] Blood 07/06/2023 9:07 AM CDT 07/06/2023 9:10 AM CDT Mandy Lyles DO CHEMISTRY ORDERABLES [facility] [address] documented in this encounter Visit Diagnoses Diagnosis Dizziness Dizziness and giddiness Palpitations documented in this encounter Care Teams District Commercial Superintendent Relationship Specialty Start Date End Date Mandy Lyles DO [address] [place] [phone] PCP - General Family Medicine 06/02/23 08/10/23 documented as of this encounter
--- OUTSIDE RECORDS SUMMARY | 2024-08-26 09:49 | XMS_ITS | Encounter Summary ---
Author Organization [facility] Address [address] [place] [address] Care Team Providers Care Guidance Director Name Role Phone Mandy Lyles DO Primary Care Provider [phone] Reason for Visit * Reason Onset Date Comments Other 07/08/2023 Encounter Details Date Type Department Care Team ([facility] st Contact Info) Description 07/08/2023 Telephone [facility] Practice [address] [place] [address] Mandy Lyles DO [address] [place] [address] Other Social History Tobacco Use [...] get records from psychiatry for appointment tomorrow. plastering contractor reviewed. No discrepancies. ATING ENGINEER * Telephone Encounter - Zuleika Joseph CNA - 07/09/2023 11:57 AM CDT Pt stated it is due on the and that is a Wednesday and is needing to get it done tomorrow. * Telephone Encounter - Jesi Loaiza LPN - 07/08/2023 1:37 PM CDT GRINDER SET UP OPERATOR INTERNAL printed. documented in this encounter Plan of Treatment Not on file documented as of this encounter Visit Diagnoses Diagnosis IGGY (generalized anxiety disorder) Generalized anxiety disorder documented in this encounter Care Teams Guidance Director Relationship Specialty Start Date End Date Mandy Lyles DO [address] [place] [phone] PCP - General Family Medicine 06/02/23 08/10/23 documented as of this encounter
--- OUTSIDE RECORDS SUMMARY | 2024-08-26 09:49 | XMS_ITS | Encounter Summary ---
Author Organization [facility] Address [address] [place] [address] Care Team Providers Care Spooling Operator Name Role Phone Mandy Lyles DO Primary Care Provider Encounter Details Date Type Department Care Team (Late st Contact Info) Description 07/06/2023 9:30 AM CDT Ancillary Procedure [facility] Non-Invasive Cardiology [address] [place] [address] Mandy Lyles DO [address] [place] [address] Dizziness; Palpitations Social History Tobacco [...] * EKG (07/06/2023 9:47 AM CDT) Narrative [facility] - 07/06/2023 9:47 AM CDT EKG Report Date: ??07/06/23 Time: ??09:20 Previous EKG available for comparison: Yes: 2013 The EKG showed a normal sinus rhythm with a ventricular rate of 69 bpm. ??WI interval normal at 170 ms. ??QRS duration normal at 102 ms. ??QT and QTC intervals are within normal range. ??R axis is normal at 78 degrees. ??There is no evidence of acute ST or T-wave changes. ??There is no voltage criteria for left ventricular hypertrophy. Mandy Lyles DO 07/13/2023 3:58 PM Mandy Lyles DO ECG ORDERABLES Performing Organization Address City/State/[facility] Co de Phone Number [facility] [address] [place] [address] documented in this encounter Visit Diagnoses Diagnosis Dizziness Dizziness and giddiness Palpitations documented in this encounter Care Teams Spooling Operator Relationship Specialty Start Date End Date Mandy Lyles DO [address] [place] [phone] PCP - General Family Medicine 06/02/23 08/10/23 documented as of this encounter
--- OUTSIDE RECORDS SUMMARY | 2024-08-26 09:49 | XMS_ITS | Encounter Summary ---
Author Organization [facility] Address [address] [place] [address] Care Team Providers Care Wireless Field Technician Name Role Phone Mandy Lyles DO Primary Care Provider [phone] Reason for Visit * Reason Onset Date Comments Results 07/13/2023 Encounter Details Date Type Department Care Team ([facility] st Contact Info) Description 07/13/2023 Telephone [facility] Practice [address] [place] [address] Mandy Lyles DO [address] [place] [address] Results Social History Tobacco Use [...] the day his Zio Monitor was placed. UCT SALES REPRESENTATIVE * Telephone Encounter - Jesi Loaiza LPN - 07/14/2023 8:49 AM CST Spoke with Alma Rosa in Respiratory and she states that she will check the machine and see if they can find any discrepancies but if we have a result an EKG was done. UCT SALES REPRESENTATIVE * Telephone Encounter - Mandy Lyles DO - 07/13/2023 6:59 PM CST Please check with RT department. UCT SALES REPRESENTATIVE * Telephone Encounter - Jesi Loaiza LPN - 07/13/2023 4:23 PM CST Patient notified of normal EKG and states that they did not do an EKG on him. Patient states they just put his heart monitor on and told him to mail it in when his time was up. UCT SALES REPRESENTATIVE * Telephone Encounter - Jesi Loaiza LPN - 07/13/2023 4:23 PM CST ----- Message from Mandy Lyles DO sent at 07/13/2023 4:08 PM PRODUCT SALES REPRESENTATIVE ----- Please notify patient of normal result. UCT SALES REPRESENTATIVE documented in this encounter Plan of Treatment Not on file documented as of this encounter Visit Diagnoses Not on filedocumented in this encounter Care Teams Wireless Field Technician Relationship Specialty Start Date End Date Mandy Lyles DO [address] [place] [phone] PCP - General Family Medicine 06/02/23 08/10/23 documented as of this encounter
--- OUTSIDE RECORDS SUMMARY | 2024-08-26 09:49 | XMS_ITS | Encounter Summary ---
Author Organization [facility] Address [address] [place] [address] Care Team Providers Care Pulp Roller Name Role Phone Niya Mcknight Primary Care Provider [phone] Reason for Visit * Reason Comments Medication Refill Encounter Details Date Type Department Care Team ([facility] st Contact Info) Description 02/18/2023 Refill [facility] Family Practice [address] [place] [address] Mandy Lyles DO [address] [place] [address] Medication Refill Social History Tobacco [...] disorder documented in this encounter Care Teams Pulp Roller Relationship Specialty Start Date End Date Niya Mcknight PA [address] [place] [address] PCP - General Family Medicine 03/11/22 06/01/23 documented as of this encounter
--- OUTSIDE RECORDS SUMMARY | 2024-08-26 09:49 | XMS_ITS | Encounter Summary ---
Author Organization [facility] Address [address] [place] [address] Care Team Providers Care Technical Solution Architect Name Role Phone Niya Mcknight Primary Care Provider [phone] Reason for Visit * Reason Comments Medication Refill Encounter Details Date Type Department Care Team ([facility] st Contact Info) Description 03/30/2023 Refill [facility] Family Practice [address] [place] [address] Cody Simms PA [address] [place], [place] [phone] Medication Refill Social History Tobacco Use Types [...] therapy documented in this encounter Care Teams Technical Solution Architect Relationship Specialty Start Date End Date Niya Mcknight PA [address] [place] [address] PCP - General Family Medicine 03/11/22 06/01/23 documented as of this encounter
--- OUTSIDE RECORDS SUMMARY | 2024-08-26 09:49 | XMS_ITS | Encounter Summary ---
Author Organization [facility] Address [address] [place] [address] Care Team Providers Care Pelletizer Name Role Phone Niya Mcknight Primary Care Provider [phone] Reason for Visit * Reason Comments Medication Refill Encounter Details Date Type Department Care Team (Late st Contact Info) Description 05/16/2023 Refill [facility] Family Practice [address] [place] [address] Niya Mcknight PA [address] [place] [address] Medication Refill Social History Tobacco [...] on filedocumented in this encounter Care Teams Pelletizer Relationship Specialty Start Date End Date Niya Mcknight PA [address] [place] [address] PCP - General Family Medicine 03/11/22 06/01/23 documented as of this encounter
--- OUTSIDE RECORDS SUMMARY | 2024-08-26 09:49 | XMS_ITS | Encounter Summary ---
Author Organization [facility] Address [address] [place] [address] Care Team Providers Care Medical Laboratory Specialist Name Role Phone Mandy Lyles DO Primary Care Provider Reason for Visit * Reason Comments Follow-up Patient states that he has been doing his testosterone injections at home. Encounter Details Date Type Department Care Team (Late st Contact Info) Description 08/02/2023 1:00 PM INDUSTRIAL SPECIALIST Office Visit [facility] Urology [address] [place] [address] Hi Deluna MD [address] [place] [address] Secondary polycythemia (Primary Dx); Testosterone deficiency [...] - Respiratory Rate 18 08/02/2023 1:20 PM INDUSTRIAL SPECIALIST Oxygen Saturation - - Inhaled Oxygen Concentration - - Weight 82.1 kg (181 lb) 08/02/2023 1:20 PM INDUSTRIAL SPECIALIST Height 177.8 cm (5' 10 ) 08/02/2023 1:20 PM INDUSTRIAL SPECIALIST Body Mass Index 25.97 08/02/2023 1:20 PM INDUSTRIAL SPECIALIST documented in this encounter Progress Notes * Hi Deluna MD - 08/02/2023 1:00 PM CST Images from the original note were not included. To the patient: ITeam now allows progress notes to be visible to patients. Please note that these notes include professional medical terminology that may be somewhat confusing without some interpretation from yourmedical professional team. The intent of progress notes is to communicate information between any hospital medical biller involved in your case and to serve [...] 6 months (around 01/31/2024) for with [facility] Urology Please Note: 1) Please note that [...] questions about progress notes from patients through [employer] messages or phone calls until the next visit. STRIAL SPECIALIST documented in this encounter Miscellaneous Notes * Addendum Note - Hieu Shelby LPN - 08/02/2023 1:00 PM CSTAddended by: HIEU SHELBY on: 08/02/2023 02:49 PM Modules accepted: Orders STRIAL SPECIALIST documented in this encounter Plan of Treatment Not on file documented as of this encounter Results * PSA TOTAL, DIAGNOSTIC (08/02/2023 1:49 PM INDUSTRIAL SPECIALIST) Prostate Specific Antigen Total 0.64 0 - 4.0 NG/ML [facility] [employer] - linkedü PSA Comment SEE NOTES [facility] Comment: The Access [employer] PSA assay is a paramagnetic particle, chemiluminescent immunoassay for the quantitative determination of prostate specific antigen (PSA) levels in human serum using the Access Immunoassay Systems. Blood 08/02/2023 1:49 PM INDUSTRIAL SPECIALIST 08/02/2023 1:53 PM INDUSTRIAL SPECIALIST Hi Deluna MD CHEMISTRY ORD ERABLES [facility] - linked[facility] [address] [place] [address], [facility] documented in this encounter Visit [...] Wed08/02/23 at 1530 Given 08/02/2023 2:47 PM INDUSTRIAL SPECIALIST 200 mg Right Ventrogluteal documented in this encounter Care Teams Medical Laboratory Specialist Relationship Specialty Start Date End Date Mandy Lyles DO [address] [place] [address] PCP - General Family Medicine 06/02/23 08/10/23 documented as of this encounter
--- OUTSIDE RECORDS SUMMARY | 2024-08-26 09:49 | XMS_ITS | Encounter Summary ---
Author Organization [facility] Address [address] [place] [address] Care Team Providers Care Wheel Alignment Mechanic Name Role Phone Mandy Lyles DO Primary Care Provider [phone] Reason for Visit * Reason Onset Date Comments Other 07/05/2023 Encounter Details Date Type Department Care Team ([facility] st Contact Info) Description 07/05/2023 Telephone [facility] [address] [place] [address] [place] [address] [place] [address] Other Social History Tobacco Use Types [...] PM CDT Pt is currently staying in [place] and is having really bad vertigo. Pt spoke with [facility]'s [facility] and they told him they could do some manipulations/physical therapy to aleveate his symptoms but that he requires a referal from his primary. PT called to request a referal for him to be faxed to the following number. He would also like to speak with someone whenever the referral has been sent. [facility] Patient P# [phone] documented in this encounter Plan of Treatment Not on file documented as of this encounter Visit Diagnoses Not on filedocumented in this encounter Care Teams Wheel Alignment Mechanic Relationship Specialty Start Date End Date Mandy Lyles DO [address] [place] [phone] PCP - General Family Medicine 06/02/23 08/10/23 documented as of this encounter
--- OUTSIDE RECORDS SUMMARY | 2024-08-26 09:50 | XMS_ITS | Encounter Summary ---
Author Organization [facility] Address [address] [place] [address] Care Team Providers Care Prepared Foods Supervisor Name Role Phone Niya Mcknight Primary Care Provider [phone] Encounter Details Date Type Department Care Team (Late st Contact Info) Description 01/11/2023 Orders Only [facility] Urology [address] [place] [address] Hi Deluna MD [address] [place] [address] Male hypogonadism (Primary Dx) Social [...] Cell Count 5.5 4.8 - 9.6 THOUS/uL [facility] Red Blood Cell Count 5.06 4.33 - 5.59 MIL/uL [facility] Hemoglobin 16.1 13.1 - 16.8 GM/DL [facility] Hematocrit 47.0 38.8 - 49.0 % [facility] Mean Corpuscular Volume 92.9 82.7 - 94.4 FL [facility] Mean Corpuscular Hemoglobin 31.8 27.7 - 32.6 PG [facility] Mean Corpuscular Hemoglobin Conc 34.3 32.4 - 35.7 G/DL [facility] Rdwcv 12.4 11.6 - 13.9 % [facility] Rdwsd 42.5 36.0 - 46.1 [facility] Platelet Count 291 154 - 364 THOUS/uL [facility] Mean Platelet Volume 9.3 8.7 - 11.7 [facility] Differential Type AUTO FE [facility] Neutrophils 69.1(H) 34.0 - 67.9 % [facility] Lymphs 19.1 19.1 - 41.2 % [facility] Monocytes 9.7 6.1 - 12.3 % [facility] Eos 0.7(L) 0.9 - 7.6 % [facility] Basos 0.7 0.2 - 1.5 % [facility] Neutrophils Absolute Count 3.8 2.7 - 5.8 THOUS/uL [facility] Lymphocytes Absolute Count 1.1 1.1 - 3.3 THOUS/uL [facility] Monocytes Absolute Count 0.5 0.4 - 0.9 THOUS/uL [facility] Eosinophils Absolute Count 0.0(L) 0.1 - 0.6 THOUS/uL [facility] Basophils Absolute Count 0.0 0.0 - 0.1 THOUS/uL [facility] Imm Gran 0.7 0.2 - 0.9 % [facility] Abs Imm Gran 0.04 0.0 - 0.1 THOUS/uL [facility] Blood 01/16/2023 9:58 AM CDT 01/16/2023 10:03 AM CDT Hi Deluna MD HEMATOLOGY OR DERABLES Performing Organization Address City/[facility]/ZIP Co de Phone Number [facility] [address] [place] [address] * PSA TOTAL, SCREEN (01/16/2023 9:58 AM CDT) Prostate Specific Antigen Total 0.61 0 - 4.00 NG/ML [facility] PSA Comment SEE NOTES [facility] Comment: The Access Hybritech PSA assay is a paramagnetic particle, chemiluminescent immunoassay for the quantitative determination of prostate specific antigen (PSA) levels in human serum using the Access Immunoassay Systems. Blood 01/16/2023 9:58 AM CDT 01/16/2023 10:03 AM CDT Hi Deluna MD CHEMISTRY ORD ERABLES [facility] [address] [place] [address] documented in this encounter Visit Diagnoses Diagnosis Male hypogonadism- Primary Other testicular hypofunction documented in this encounter Care Teams Prepared Foods Supervisor Relationship Specialty Start Date End Date Niya Mcknight PA [address] [place] [address] PCP - General Family Medicine 03/11/22 06/01/23 documented as of this encounter
--- OUTSIDE RECORDS SUMMARY | 2024-08-26 09:50 | XMS_ITS | Encounter Summary ---
Author Organization [facility] Address [address] [place] [address] Care Team Providers Care Single Needle Tufting Machine Operator Name Role Phone Cody Simms Primary Care Provider [phone]- [phone] Reason for Visit * Reason Comments Medication Refill Encounter Details Date Type Department Care Team ([facility] st Contact Info) Description 10/20/2021 Refill [facility] Family Practice [address] [place] [address] Cody Simms PA [address] [place] [address] Medication Refill Social History Tobacco Use Types [...] on filedocumented in this encounter Care Teams Single Needle Tufting Machine Operator Relationship Specialty Start Date End Date Cody Simms PA [address] [place] [address] PCP - General Physician Electric Motor Controls Assembler 10/24/18 03/10/22 documented as of this encounter
--- OUTSIDE RECORDS SUMMARY | 2024-08-26 09:50 | XMS_ITS | Encounter Summary ---
Author Organization [facility] Address [address] [place] [address] Care Team Providers Care Chef Manager Name Role Phone Niya Mcknight Primary Care Provider [phone]- [phone] Reason for Visit * Reason Onset Date Comments Results 01/20/2023 Lab Encounter Details Date Type Department Care Team ([facility] st Contact Info) Description 01/20/2023 Telephone [facility] Practice [address] [place] [address] Mandy Lyles DO [address] [place] [address] Results (Lab) Social History Tobacco [...] on filedocumented in this encounter Care Teams Chef Manager Relationship Specialty [place] [address] [place] [address] PCP - General Family Medicine 03/11/22 06/01/23 documented as of this encounter
--- OUTSIDE RECORDS SUMMARY | 2024-08-26 09:50 | XMS_ITS | Encounter Summary ---
Author Organization [facility] Address [address] [place] [address] Care Team Providers Care Job Developer Name Role Phone Cody Simms Primary Care Provider +1- [phone] Reason for Visit * Reason Comments Anxiety feels like xanax is not working anymore or not stong enough Medication Refill xanax Results blood work Encounter Details Date Type Department Care Team (Late st Contact Info) Description 07/24/2021 2:30 PM ZIPPER REPAIRER Office Visit [facility] [address] [place] [phone] [place] [address] [place] [address] Anxiety and depression (Primary Dx) Social [...] COVID-19? No / Unsure 07/23/2021 10:20 AM ZIPPER REPAIRER documented as of this encounter Last Filed Vital Signs Vital Sign Reading Time Taken Comments Blood Pressure 140/100 07/24/2021 2:38 PM ZIPPER REPAIRER Pulse 77 07/24/2021 2:38 PM ZIPPER REPAIRER Temperature 36.7 ??C (98.1 ??F) 07/24/2021 2:38 PM CS T Respiratory Rate 18 07/24/2021 2:38 PM ZIPPER REPAIRER Oxygen Saturation 97% 07/24/2021 2:38 PM ZIPPER REPAIRER Inhaled Oxygen Concentration - - Weight 83.9 kg (185 lb) 07/24/2021 2:38 PM ZIPPER REPAIRER Height 177.8 cm (5' 10 ) 07/24/2021 2:38 PM ZIPPER REPAIRER Body Mass Index 26.54 07/24/2021 2:38 PM ZIPPER REPAIRER documented in this encounter Progress Notes [...] Niya Mireles NP 07/24/2021 3:08 PM This health safety coordinator was created in part using [employer] voice recognition software, electronically transcribed and electronically signed. Be aware that this health safety coordinator may contain errors not detected by proofreading. ER REPAIRER documented in this encounter Plan of Treatment Not on file documented as of this encounter Visit Diagnoses Diagnosis Anxiety and depression- Primary Dysthymic disorder documented in this encounter Care Teams Job Developer Relationship Specialty Start Date End Date Cody Simms PA [address] [place] [address] PCP - General Physician Fire Behavior Analyst 10/24/18 03/10/22 documented as of this encounter
--- OUTSIDE RECORDS SUMMARY | 2024-08-26 09:50 | XMS_ITS | Encounter Summary ---
Author Organization [facility] Address [address] [place] [address] Care Team Providers Care Qa Developer Name Role Phone Niya Mcknight Primary Care Provider +1- [phone] Reason for Visit * Reason Comments Medication Refill Encounter Details Date Type Department Care Team (Late st Contact Info) Description 01/02/[address] [place] [phone] Niya Mcknight PA [address] [place] [address] Medication Refill Social History Tobacco [...] therapy documented in this encounter Care Teams Qa Developer Relationship Specialty Start Date End Date Niya Mcknight PA [address] [place] [address] PCP - General Family Medicine 03/11/22 06/01/23 documented as of this encounter
--- OUTSIDE RECORDS SUMMARY | 2024-08-26 09:50 | XMS_ITS | Encounter Summary ---
Author Organization [facility] Address [address] [place] [address] Care Team Providers Care Business Development Representative Name Role Phone Cody Simms Primary Care Provider +1- [phone] Reason for Visit * Reason Comments Establish Care Here to establish ca re. Was seeing Cody Simms. Requesting medication refills. Encounter Details Date Type Department Care Team (Late st Contact Info) Description 12/10/2021 2:00 PM CDT Office Visit [address] [phone] Niya Mcknight PA [address] [place] [address] IGGY (generalized anxiety disorder) (Primary Dx); [...] seeing Cody Simms. Requesting medication refills. SUBJECTIVE: Jhon Veliz is a 51 y.o. male who presents for yearly wellness exam. Medical, surgical, family and social history were reviewed with patient. Last PSA 10/07/2020 Results 0.55. Last МАРИЯ na. Last colonoscopy na. Concerns today comes to establish care as his PCP is no longer at facility.. Male hypogonadism - JI Vasquez 12/10/21 1523 Edited Was diagnosed with low testosterone in [facility] in 2018. Has been adjusted over time [...] is doing well on current medication regimen. CEO reviewed low risk with noconcerned Current Outpatient [...] Edited Was diagnosed with low testosterone in [facility] in 2018. Has been adjusted over time [...] is doing well on current medication regimen. CEO reviewed low risk with noconcerned. Patient does [...] 3 months (around 03/11/2022). JI Vasquez This artist's model was electronically signed. It was dictated by use of voice recognition software and electronically transcribed. The artist's model may contain errors not detected in proofreading. [...] is doing well on current medication regimen. CEO reviewed low risk with noconcerned. Patient does [...] hypogonadism Was diagnosed with low testosterone in [facility] in 2018. Has been adjusted over time [...] hypofunction documented in this encounter Care Teams Business Development Representative Relationship Specialty Start Date End Date Cody Simms PA [address] [place] [address] PCP - General Physician Wire Coating Operator Metal 10/24/18 03/10/22 documented as of this encounter
--- OUTSIDE RECORDS SUMMARY | 2024-08-26 09:50 | XMS_ITS | Encounter Summary ---
Author Organization [facility] Address [address] [place] [address] Care Team Providers Care Brewery Worker Name Role Phone Cody Simms Primary Care Provider +1- [phone] Reason for Visit * Reason Comments Medication Refill Encounter Details Date Type Department Care Team ([facility] st Contact Info) Description 12/18/2021 Refill [facility] [address] [place] [phone] Cody Simms PA [address] [place] [address] Medication Refill Social History Tobacco Use Types [...] disorder documented in this encounter Care Teams Brewery Worker Relationship Specialty Start Date End Date Cody Simms PA [address] [place] [address] PCP - General Physician Zigzagger 10/24/18 03/10/22 documented as of this encounter
--- OUTSIDE RECORDS SUMMARY | 2024-08-26 09:50 | XMS_ITS | Encounter Summary ---
Author Organization [facility] Address [address] [place] [address] Care Team Providers Care Records Management Director Name Role Phone Niya Mcknight Primary Care Provider +1- [phone] Reason for Visit * Reason Onset Date Comments Other 12/28/2022 Billing question s Encounter Details Date Type Department Care Team (Late st Contact Info) Description 12/28/2022 Telephone [facility] Practice [address] [place] [address] Niya Mcknight PA [address] [place] [address] Other (Billing questions ) Social [...] and this nurse would try to contact [facility] billing department tomorrow to find out. Informed patient since it was after 5pm, billing department would be closed. Patient verbalized understanding and will be in touch with this nurse. documented in this encounter Plan of Treatment Not on file documented as of this encounter Visit Diagnoses Not on filedocumented in this encounter Care Teams Records Management Director Relationship Specialty Start Date End Date Niya Mcknight PA [address] [place] [address] PCP - General Family Medicine 03/11/22 06/01/23 documented as of this encounter
--- OUTSIDE RECORDS SUMMARY | 2024-08-26 09:50 | XMS_ITS | Encounter Summary ---
Author Organization [facility] Address [address] [place] [address] Care Team Providers Care Toll Line Repairer Name Role Phone Niya Mcknight Primary Care Provider +1- [phone] Reason for Visit * Reason Comments Foot Pain Encounter Details Date Type Department Care Team (Late st Contact Info) Description 09/08/2022 5:27 PM WARPER TENDER - 09/08/2022 6:22 PM [facility] Emergency Department [address] [place] [address] John Polk MD [address] [place] [address] Puncture wound of left foot, initial encounter [...] Coronavirus/COVID-19? No / Unsure 09/21/2022 2:28 PM WARPER TENDER documented as of this encounter Last Filed Vital Signs Vital Sign Reading Time Taken Comments Blood Pressure 154/90 09/08/2022 6:19 PM WARPER TENDER Pulse 103 09/08/2022 6:19 PM WARPER TENDER Temperature 37.2 ??C (98.9 ??F) 09/08/2022 5:30 PM CS T Respiratory Rate 20 09/08/2022 6:19 PM WARPER TENDER Oxygen Saturation 98% 09/08/2022 6:19 PM WARPER TENDER Inhaled Oxygen Concentration - - Weight 79.8 kg (176 lb) 09/08/2022 5:30 PM WARPER TENDER Height 177.8 cm (5' 10 ) 09/08/2022 5:30 PM WARPER TENDER Body Mass Index 25.25 09/08/2022 5:30 PM WARPER TENDER documented in this encounter Discharge Instructions * Discharge Instructions* John Polk MD - 09/08/2022 6:12 PM WARPER TENDER OTC med as helpful, recheck as needed. ER TENDER * Attachments The following attachments cannot be sent through Care Everywhere. * Puncture Wound (AfterCare(R) Instructions(ER/ED)) (Maltese) documented in this encounter Medications at Time [...] from the original note were not included. [facility] Emergency Room General Encounter CHIEF COMPLAINT [...] 24 hour(s)). Old charts were reviewed per [employer] EMR. Pertinent details are summarized above. All [...] Discharge MD John Medellin MD 09/09/22 0711 ER TENDER * Monse Hardy RN - 09/08/2022 6:20 PM CST Discharge instructions and Rx reviewed with patient. Patient to pick of Rx in the morning. Patient voices good understanding. Patient exits ED ambulatory. ER TENDER * Monse Hardy RN - 09/08/2022 5:45 PM CST at bedside for exam. ER TENDER documented in this encounter Miscellaneous Notes [...] 4. Skin warm and dry. Color good. ER TENDER documented in this encounter Plan of Treatment [...] at 0900, STAT Given 09/08/2022 5:58 PM WARPER TENDER 0.5 mL Left Deltoid documented in this encounter Active and Recently Administered Medications Times are shown in WARPER TENDER. Scheduled Medication Order 09/06/2022 09/07/2022 09/08/2022 Tdap (BOOSTRIX) injection 0.5 mL (COMPLETED) 0.5 mL, Intramuscular, IMMUNIZATION 0900, 1 dose, On Wed09/09/22 at 0900, STAT 1758 (Given - Provid er: Monse Hardy RN) documented in this encounter Care Teams Toll Line Repairer Relationship Specialty [place] [address] [place] [address] PCP - General Family Medicine 03/11/22 06/01/23 documented as of this encounter
--- OUTSIDE RECORDS SUMMARY | 2024-08-26 09:50 | XMS_ITS | Encounter Summary ---
Author Organization [facility] Address [address] [place] [address] Care Team Providers Care Aniline Press Worker Name Role Phone Niya Mcknight Primary Care Provider +1- [phone] Reason for Visit * Reason Comments Medication Refill Encounter Details Date Type Department Care Team ([facility] st Contact Info) Description 12/19/2022 Refill [facility] Practice [address] [place] [address] Niya Mcknight PA [address] [place] [address] Medication Refill Social History Tobacco [...] disorder documented in this encounter Care Teams Aniline Press Worker Relationship Specialty Start Date End Date Niya Mcknight PA [address] [place] [address] PCP - General Family Medicine 03/11/22 06/01/23 documented as of this encounter
--- OUTSIDE RECORDS SUMMARY | 2024-08-26 09:50 | XMS_ITS | Encounter Summary ---
Author Organization [facility] Address [address] [place] [address] Care Team Providers Care Apartment Maintenance Manager Name Role Phone Cody Simms Primary Care Provider +1- [phone] Reason for Visit * Reason Comments Medication Refill Encounter Details Date Type Department Care Team ([facility] st Contact Info) Description 08/12/2021 Refill [facility] Practice [address] [place] [address] Cody Simms PA [address] [place] [address] Medication Refill Social History Tobacco Use Types [...] Primary documented in this encounter Care Teams Apartment Maintenance Manager Relationship Specialty Start Date End Date Cody Simms PA [address] [place] [address] PCP - General Physician Engineering Supervisor 10/24/18 03/10/22 documented as of this encounter
--- OUTSIDE RECORDS SUMMARY | 2024-08-26 09:50 | XMS_ITS | Encounter Summary ---
Author Organization [facility] Address [address] [place] [address] Care Team Providers Care Ice Resurfacing Machine Operators Name Role Phone Niya Mcknight Primary Care Provider +1- [phone] Encounter Details Date Type Department Care Team (Latest Contact Info) Description 10/17/2022 9:00 AM TROLLEY CLEANER Lab/X-Ray Only [facility] [address] [place] [address] Niya Mcknight PA [address] [place], [place] [address] Testosterone deficiency; IGGY (generalized anxiety disorder); Dyslipidemia [...] Coronavirus/COVID-19? No / Unsure 10/17/2022 8:55 AM TROLLEY CLEANER documented as of this encounter Plan of Treatment Not on file documented as of this encounter Procedures Procedure Name Priority Date/Time Associated Diagnosis Comments TSH THIRD GENERATION Routine 10/17/2022 8:58 AM TROLLEY CLEANER IGGY (generalized anxiety disorder) VITAMIN D 25 HYDROXY Routine 10/17/2022 8:58 AM TROLLEY CLEANER Testosterone deficiency TOT TESTOSTERONE,MALE Routine 10/17/2022 8:58 AM TROLLEY CLEANER Testosterone deficiency TESTOSTERONE FREE (MALE) Routine 10/17/2022 8:58 AM TROLLEY CLEANER Testosterone deficiency CBC W AUTO DIFF Routine 10/17/2022 8:58 AM TROLLEY CLEANER IGGY (generalized anxiety disorder) Dyslipidemia T3 FREE Routine 10/17/2022 8:58 AM TROLLEY CLEANER IGGY (generalized anxiety disorder) T4 FREE Routine 10/17/2022 8:58 AM TROLLEY CLEANER IGGY (generalized anxiety disorder) LIPID PROFILE Routine 10/17/2022 8:58 AM TROLLEY CLEANER IGGY (generalized anxiety disorder) Dyslipidemia COMPREHENSIVE METABOLIC PANEL Routine 10/17/2022 8:58 AM TROLLEY CLEANER IGGY (generalized anxiety disorder) Dyslipidemia documented in this encounter Results * (ABNORMAL) LIPID PROFILE (10/17/2022 8:58 AM TROLLEY CLEANER) Cholesterol 187 0 - 200 MG/DL [facility] Triglycerides 208(H) <150 MG/DL [facility] HDL 62 23 - 92 MG/DL [facility] LDL Cholesterol 83 <130 MG/DL [facility] LDL/HDL Ratio 1.34 [facility] VLDL, Calc 42(H) 5 - 40 MG/DL [facility] LDL, High Risk RELATIVE [...] WILL FURTHER MODIFY THE RELATIVE RISK RATIO. [facility] Blood 10/17/2022 8:58 AM TROLLEY CLEANER 10/17/2022 9:03 AM TROLLEY CLEANER Niya WORKMAN CHEMISTRY ORDERABL ES Performing Organization Address City/State/[facility] Co de Phone Number [facility] [place] [facility] [place] [address] * (ABNORMAL) COMPREHENSIVE METABOLIC PANEL (10/17/2022 8:58 AM TROLLEY CLEANER) Glucose 96 74 - 109 MG/DL [facility] Blood Urea Nitrogen 7 7 - 25 MG/DL [facility] Creatinine 1.2 0.6 - 1.3 MG/DL [facility] Sodium 136 136 - 145 MMOL/L [facility] Potassium 3.1(L) 3.5 - 5.1 MMOL/L [facility] Chloride 94(L) 98 - 107 MMOL/L [facility] Co2 30 21 - 31 MMOL/L [facility] Calcium 10.0 8.6 - 10.3 MG/DL [facility] Protein Total 7.5 6.4 - 8.9 G/DL [facility] Albumin 4.6 3.5 - 5.7 G/DL [facility] A/G Ratio 1.6 0.8 - 2.0 [facility] Alkaline Phosphatase 91 34 - 104 U/L [facility] Alt (SGPT) 19 7 - 52 U/L [facility] AST(SGOT) 16 13 - 39 U/L [facility] Bilirubin, Total 1.7(H) 0.3 - 1.0 MG/DL [facility] GFR Comment IF PATIENT IS , MULTIPLY RESULT BY 1.16 [facility] Est GFR 70(L) >90 ML/MIN/1. 73sq.m [facility] Blood 10/17/2022 8:58 AM TROLLEY CLEANER 10/17/2022 9:03 AM TROLLEY CLEANER Niya WORKMAN CHEMISTRY ORDERABL ES [facility] [address] [place], [place] [address] * (ABNORMAL) CBC W AUTO DIFF (10/17/2022 8:58 AM TROLLEY CLEANER) White Blood Cell Count 7.3 4.8 - 9.6 THOUS/uL [facility] Red Blood Cell Count 5.36 4.33 - 5.59 MIL/uL [facility] Hemoglobin 17.6(H) 13.1 - 16.8 GM/DL [facility] Hematocrit 50.5(H) 38.8 - 49.0 % [facility] Mean Corpuscular Volume 94.2 82.7 - 94.4 FL [facility] Mean Corpuscular Hemoglobin 32.8(H) 27.7 - 32.6 PG [facility] Mean Corpuscular Hemoglobin Conc 34.9 32.4 - 35.7 G/DL [facility] Rdwcv 13.5 11.6 - 13.9 % [facility] Rdwsd 47.1(H) 36.0 - 46.1 [facility] Platelet Count 319 154 - 364 THOUS/uL [facility] Mean Platelet Volume 9.0 8.7 - 11.7 [facility] Nucleated Red Blood Cells 0.0 0.0 /100 WBC'S [facility] Abs NRBC 0.0 0.0 THOUS/uL [facility] Differential Type [facility] Neutrophils 68.2(H) 34.0 - 67.9 % [facility] Lymphs 18.2(L) 19.1 - 41.2 % [facility] Monocytes 10.8 6.1 - 12.3 % [facility] Eos 1.0 0.9 - 7.6 % [facility] Basos 1.1 0.2 - 1.5 % [facility] Neutrophils Absolute Count 5.0 2.7 - 5.8 THOUS/uL [facility] Lymphocytes Absolute Count 1.3 1.1 - 3.3 THOUS/uL [facility] Monocytes Absolute Count 0.8 0.4 - 0.9 THOUS/uL [facility] Eosinophils Absolute Count 0.1 0.1 - 0.6 THOUS/uL [facility] Basophils Absolute Count 0.1 0.0 - 0.1 THOUS/uL [facility] Imm Gran 0.7 0.2 - 0.9 % [facility] Abs Imm Gran 0.05 0.0 - 0.1 THOUS/uL [facility] Blood 10/17/2022 8:58 AM TROLLEY CLEANER 10/17/2022 9:03 AM TROLLEY CLEANER Niya WORKMAN HEMATOLOGY ORDERAB LES [facility] [address] [place] [address] * T3 FREE (10/17/2022 8:58 AM TROLLEY CLEANER) T3 Free 3.1 2.5 - 3.9 PG/ML [facility] Blood 10/17/2022 8:58 AM TROLLEY CLEANER 10/17/2022 9:03 AM TROLLEY CLEANER Niya WORKMAN CHEMISTRY ORDERABL ES [facility] [address] * T4 FREE (10/17/2022 8:58 AM TROLLEY CLEANER) Free T4 0.98 0.61 - 1.12 NG/DL [facility] Comment: 0.52-11.0 FEMALES, 1ST TRIMESTER 0.45-0.99 FEMALES, 2ND TRIMESTER 0.48-0.95 FEMALES, 3RD TRIMESTER Blood 10/17/2022 8:58 AM TROLLEY CLEANER 10/17/2022 9:03 AM TROLLEY CLEANER Niya WORKMAN CHEMISTRY ORDERABL ES Performing Organization Address [facility] Co de Phone Number [address] * VITAMIN D 25 HYDROXY (10/17/2022 8:58 AM TROLLEY CLEANER) Pathologist [facility] Vitamin D 25-Hydroxy 39.9 <20 Deficient 20-29 Insufficient 30-100 Sufficient >100 Upper Safety Limit 30.00 - 100.00 mg/dL [facility] 10/17/2022 8:58 AM TROLLEY CLEANER 10/17/2022 9:03 AM TROLLEY CLEANER Niya WORKMAN CHEMISTRY ORDERABL ES Performing Organization Address [facility] Co de Phone Number [facility] [address] * TSH THIRD GENERATION (10/17/2022 8:58 AM TROLLEY CLEANER) Pathologist [facility] TSH 0.87 0.05-3.70 FEMALES, 1ST TRIMESTER 0.31-4.35 FEMALES, 2ND TRIMESTER 0.41-5.18 FEMALES, 3RD TRIMESTER 0.45 - 5.33 uIU/mL [facility] Blood 10/17/2022 8:58 AM TROLLEY CLEANER 10/17/2022 9:03 AM TROLLEY CLEANER Niya WORKMAN CHEMISTRY ORDERABL ES [facility] [address] [place] [address] * TESTOSTERONE FREE (MALE) (10/17/2022 8:58 AM TROLLEY CLEANER) Testosterone Free 76 47 - 244 pg/mL [facility] Comment: (NOTE) INTERPRETIVE INFORMATION: ??Testosterone, Free Calculation [...] Children, or Individuals on Testosterone-Suppressing Hormone Therapy) (writewith test code [id number]). For individuals on testosterone hormone therapy, refer to cisgender male reference intervals. No reference intervals have been established for males younger than 14 years or for cisgender females. For a complete set of all established reference intervals, refer to [employer]/Tests/Pub/[id number]. Performed By: [employer] [address] [place] [address] Backbreaker: Jeb Machuca MD, PhD Blood 10/17/2022 8:58 AM TROLLEY CLEANER 10/17/2022 9:03 AM TROLLEY CLEANER Niya WORKMAN LAB SEND OUT ORDER MELVIN Performing Organization Address [facility] Co de Phone Number [facility] [address] [place] [address], [facility] * TOT TESTOSTERONE,MALE (10/17/2022 8:58 AM TROLLEY CLEANER) Tot Testosterone ,Male 361 THE ACCESS TESTOSTERONE ASSAY IS PARAMAGNETIC PARTICLE, CHEMILUMINESCENT IMMUNOASSAY FOR THE QUANTITATIVE DETERMINATION OF TOTAL TESTOSTERONE LEVELS IN HUMAN SERUM USING THE THEMA IMMUNOASSAY SYSTEMS. THE ACCESS TESTOSTERONE ASSAY IS A COMPETITIVE BINDING IMMUNOENZYMATIC ASSAY. ??TESTOSTERONE TEST RESULTS FROM DIFFERENT MANUFACTURERS WILL VARY. RESULTS SHOULD BE INTERPRETED IN LIGHT OF TOTAL CLINICAL PRESENTATION OF THE PATIENT, INCLUDING SYMPTOMS, CLINICAL HISTORY, DATA FROM ADDITIONAL TESTS AND OTHER APPROPRIATE INFORMATION. 175.00 - 781.00 NG/DL [facility] 10/17/2022 8:58 AM TROLLEY CLEANER 10/17/2022 9:03 AM TROLLEY CLEANER Niya WORKMAN CHEMISTRY ORDERABL ES [facility] [address] documented in this encounter Visit Diagnoses Diagnosis Testosterone deficiency Other testicular hypofunction IGGY (generalized anxiety disorder) Generalized anxiety disorder Dyslipidemia Other and unspecified hyperlipidemia documented in this encounter Care Teams Ice Resurfacing Machine Operators Relationship Specialty Start Date End Date Niya Mcknight PA [address] [place] [address] PCP - General Family Medicine 03/11/22 06/01/23 documented as of this encounter
--- OUTSIDE RECORDS SUMMARY | 2024-08-26 09:50 | XMS_ITS | Encounter Summary ---
Author Organization [facility] Address [address] [place] [address] Care Team Providers Care Dialysis Nurse Name Role Phone Niya Mcknight Primary Care Provider [phone]- [phone] Reason for Visit * Reason Comments Follow-up Here for follow up a nd needing medication refill on Xanax. Is wanting to see about getting a prescription for Cialis. Encounter Details Date Type Department Care Team (Latest Contact Info) Description 09/21/2022 2:30 PM EVENTS TRAFFIC CONTROLLER Office Visit [facility] [address] [place] [address] Niya Mcknight PA [address] [place] [address] IGGY (generalized anxiety disorder) (Primary Dx); [...] Coronavirus/COVID-19? No / Unsure 09/21/2022 2:28 PM EVENTS TRAFFIC CONTROLLER documented as of this encounter Last Filed Vital Signs Vital Sign Reading Time Taken Comments Blood Pressure 154/84 09/21/2022 2:45 PM EVENTS TRAFFIC CONTROLLER Pulse 86 09/21/2022 2:33 PM EVENTS TRAFFIC CONTROLLER Temperature 36.8 ??C (98.3 ??F) 09/21/2022 2:33 PM CS T Respiratory Rate 18 09/21/2022 2:33 PM EVENTS TRAFFIC CONTROLLER Oxygen Saturation 97% 09/21/2022 2:33 PM EVENTS TRAFFIC CONTROLLER Inhaled Oxygen Concentration - - Weight 76.2 kg (168 lb) 09/21/2022 2:33 PM EVENTS TRAFFIC CONTROLLER Height 177.8 cm (5' 10 ) 09/21/2022 2:33 PM EVENTS TRAFFIC CONTROLLER Body Mass Index 24.11 09/21/2022 2:33 PM EVENTS TRAFFIC CONTROLLER documented in this encounter Patient Instructions * Patient Instructions* Niya Mcknight PA - 09/21/2022 2:30 PM EVENTS TRAFFIC CONTROLLER Have labs drawn fasting TS TRAFFIC CONTROLLER documented in this encounter Progress Notes * [...] recently come back to the area from [place]. Is getting back into counseling. Denies any [...] recently come back to the area from [place]. Is getting back into counseling. Denies any overt panic attacks. States he has more of a constant anxious feeling on the days that he has trouble. Denies any depression or suicide ideation. 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 No concerns noted. Is current on medication contract and drug screen. Last drug screen did show ethanol. Discuss this with patient. States that he is no longer drinking. Will continue same. Will get back in with counseling at [facility]. Did explain to patient that if he [...] 12/20/2022). JI Vasquez 09/23/2022 12:41 PM This certified dental assistant was electronically signed. It was dictated by use of voice recognition software and electronically transcribed. The certified dental assistant may contain errors not detected in proofreading. TS TRAFFIC CONTROLLER documented in this encounter Miscellaneous Notes * Assessment & Plan Note - Niya Mcknight PA - 09/23/2022 12:37 PM EVENTS TRAFFIC CONTROLLER Associated Problem(s): Testosterone deficiency Was seen by [...] may ultimately need referred back to Urology. TS TRAFFIC CONTROLLER * Assessment & Plan Note - Niya Mcknight PA - 09/23/2022 12:36 PM EVENTS TRAFFIC CONTROLLER Associated Problem(s): Hypovitaminosis D Currently takes vitamin-D 5000 IU daily. Obtain vitamin-D level TS TRAFFIC CONTROLLER * Assessment & Plan Note - Niya Mcknight PA - 09/23/2022 12:36 PM EVENTS TRAFFIC CONTROLLER Associated Problem(s): Dyslipidemia Currently not on any cholesterol medication Last 3 Lipid Profile ValuesRecent Labs Lab 07/19/21 0845 12/30/19 0836 09/09/19 0841 CHOL 177 213* 199 TRIG 100 275* 208* HDL 41 31* 29* LDLCALC 116* 127* 128* Obtain cholesterol fasting TS TRAFFIC CONTROLLER * Assessment & Plan Note - Niya Mcknight PA - 09/23/2022 12:35 PM EVENTS TRAFFIC CONTROLLER Associated Problem(s): IGGY (generalized anxiety disorder) Patient currently on Xanax 0.5 mg t.i.d. p.r.n.. States that he takes Xanax about 4 days per week. States he does try to take holidays from this. Has tried multiple SSRIs in the past without improvement. Has recently come back to the area from [place]. Is getting back into counseling. Denies any overt panic attacks. States he has more of a constant anxious feeling on the days that he has trouble. Denies any depression or suicide ideation. 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 No concerns noted. Is current on medication contract and drug screen. Last drug screen did show ethanol. Discuss this with patient. States that he is no longer drinking. Will continue same. Will get back in with counseling at [facility]. Did explain to patient that if he had accelerating need for anxiolytic that he would need to see Psychiatry. TS TRAFFIC CONTROLLER documented in this encounter Plan of Treatment Not on file documented as of this encounter Results * TESTOSTERONE FREE (MALE) (10/17/2022 8:58 AM EVENTS TRAFFIC CONTROLLER) [facility] Testosterone Free 76 47 - 244 pg/mL [employer] Comment: (NOTE) INTERPRETIVE INFORMATION: ??Testosterone, Free Calculation [...] Children, or Individuals on Testosterone-Suppressing Hormone Therapy) (HandInScan test code [id number]). For individuals on testosterone hormone therapy, refer to cisgender male reference intervals. No reference intervals have been established for males younger than 14 years or for cisgender females. For a complete set of all established reference intervals, refer to [employer]/Tests/Pub/[id number]. Performed By: [facility] [address] [place] [id number] Crusher Feeder: Jeb Machuca MD, PhD Blood 10/17/2022 8:58 AM EVENTS TRAFFIC CONTROLLER 10/17/2022 9:03 AM EVENTS TRAFFIC CONTROLLER Niya WORKMAN LAB SEND OUT ORDER MELVIN Performing Organization Address City/[facility] Co de Phone Number [facility] [employer] [address] * TOT TESTOSTERONE,MALE (10/17/2022 8:58 AM EVENTS TRAFFIC CONTROLLER) Tot Testosterone ,Male 361 THE ACCESS TESTOSTERONE ASSAY IS PARAMAGNETIC PARTICLE, CHEMILUMINESCENT IMMUNOASSAY FOR THE QUANTITATIVE DETERMINATION OF TOTAL TESTOSTERONE LEVELS IN HUMAN SERUM USING THE [employer] IMMUNOASSAY SYSTEMS. THE ACCESS TESTOSTERONE ASSAY IS A COMPETITIVE BINDING IMMUNOENZYMATIC ASSAY. ??TESTOSTERONE TEST RESULTS FROM DIFFERENT MANUFACTURERS WILL VARY. RESULTS SHOULD BE INTERPRETED IN LIGHT OF TOTAL CLINICAL PRESENTATION OF THE PATIENT, INCLUDING SYMPTOMS, CLINICAL HISTORY, DATA FROM ADDITIONAL TESTS AND OTHER APPROPRIATE INFORMATION. 175.00 - 781.00 NG/DL [facility] 10/17/2022 8:58 AM EVENTS TRAFFIC CONTROLLER 10/17/2022 9:03 AM EVENTS TRAFFIC CONTROLLER Niya WORKMAN CHEMISTRY ORDERABL ES Performing Organization Address [facility] de Phone Number [facility] [address] [place] [address] * VITAMIN D 25 HYDROXY (10/17/2022 8:58 AM EVENTS TRAFFIC CONTROLLER) Vitamin D 25-Hydroxy 39.9 <20 Deficient 20-29 Insufficient 30-100 Sufficient >100 Upper Safety Limit 30.00 - 100.00 mg/dL [facility] [employer] 10/17/2022 8:58 AM EVENTS TRAFFIC CONTROLLER 10/17/2022 9:03 AM EVENTS TRAFFIC CONTROLLER Niya WORKMAN CHEMISTRY ORDERABL ES Performing Organization Address [facility] Co de Phone Number [facility] [address] [place] [address] * TSH THIRD GENERATION (10/17/2022 8:58 AM EVENTS TRAFFIC CONTROLLER) TSH 0.87 0.05-3.70 FEMALES, 1ST TRIMESTER 0.31-4.35 FEMALES, 2ND TRIMESTER 0.41-5.18 FEMALES, 3RD TRIMESTER 0.45 - 5.33 uIU/mL [facility] [employer] Blood 10/17/2022 8:58 AM EVENTS TRAFFIC CONTROLLER 10/17/2022 9:03 AM EVENTS TRAFFIC CONTROLLER Niya WORKMAN CHEMISTRY ORDERABL ES Performing Organization Address [facility]/State/[facility] Co de Phone Number [facility] [address] [place], [place] [address] * (ABNORMAL) LIPID PROFILE (10/17/2022 8:58 AM EVENTS TRAFFIC CONTROLLER) Cholesterol 187 0 - 200 MG/DL [facility] [employer] Triglycerides 208(H) <150 MG/DL [facility] HDL 62 23 - 92 MG/DL [facility] LDL Cholesterol 83 <130 MG/DL [facility] LDL/HDL Ratio 1.34 [facility] VLDL, Calc 42(H) 5 - 40 MG/DL [facility] LDL, High Risk RELATIVE RISK ? MALE ?FEMALE 1/2 AVERAGE ? 1.00 ? 1.47 AVERAGE ? 3.55 ? 3.22 2X AVERAGE ?6.25 ? 5.03 3X AVERAGE ?7.99 ? 6.14 AN AVERAGE RISK RATIO INFERS A 10% LIKELIHOOD OF SIGNIFICANT CAD BY AGE 60. OTHER RISK FACTORS SUCH GLUCOSE INTOLERANCE, SMOKING HISTORY, HYPERTENSION AND OBESITY WILL FURTHER MODIFY THE RELATIVE RISK RATIO. [facility] [employer] Blood 10/17/2022 8:58 AM EVENTS TRAFFIC CONTROLLER 10/17/2022 9:03 AM EVENTS TRAFFIC CONTROLLER Niya WORKMAN CHEMISTRY ORDERABL ES Performing Organization Address City/[facility]/ZIP Co de Phone Number [facility] [address] [place] [address] * (ABNORMAL) COMPREHENSIVE METABOLIC PANEL (10/17/2022 8:58 AM EVENTS TRAFFIC CONTROLLER) Glucose 96 74 - 109 MG/DL [facility] Blood Urea Nitrogen 7 7 - 25 MG/DL [facility] Creatinine 1.2 0.6 - 1.3 MG/DL [facility] Sodium 136 136 - 145 MMOL/L [facility] Potassium 3.1(L) 3.5 - 5.1 MMOL/L [facility] Chloride 94(L) 98 - 107 MMOL/L [facility] Co2 30 21 - 31 MMOL/L [facility] Calcium 10.0 8.6 - 10.3 MG/DL [facility] Protein Total 7.5 6.4 - 8.9 G/DL [facility] Albumin 4.6 3.5 - 5.7 G/DL [facility] A/G Ratio 1.6 0.8 - 2.0 [facility] Alkaline Phosphatase 91 34 - 104 U/L [facility] Alt (SGPT) 19 7 - 52 U/L [facility] AST(SGOT) 16 13 - 39 U/L [facility] Bilirubin, Total 1.7(H) 0.3 - 1.0 MG/DL [facility] GFR Comment IF PATIENT IS , MULTIPLY RESULT BY 1.16 [facility] Est GFR 70(L) >90 ML/MIN/1. 73sq.m [facility] Blood 10/17/2022 8:5 8 AM EVENTS TRAFFIC CONTROLLER 10/17/2022 9:03 AM EVENTS TRAFFIC CONTROLLER Niya WORKMAN CHEMISTRY ORDERABL ES Performing Organization Address [facility] Co de Phone Number [facility] [address] [place] [address] * (ABNORMAL) CBC W AUTO DIFF (10/17/2022 8:58 AM EVENTS TRAFFIC CONTROLLER) White Blood Cell Count 7.3 4.8 - 9.6 THOUS/uL [facility] Red Blood Cell Count 5.36 4.33 - 5.59 MIL/uL [facility] Hemoglobin 17.6(H) 13.1 - 16.8 GM/DL [facility] Hematocrit 50.5(H) 38.8 - 49.0 % [facility] Mean Corpuscular Volume 94.2 82.7 - 94.4 FL [facility] Mean Corpuscular Hemoglobin 32.8(H) 27.7 - 32.6 PG [facility] Mean Corpuscular Hemoglobin Conc 34.9 32.4 - 35.7 G/DL [facility] Rdwcv 13.5 11.6 - 13.9 % [facility] Rdwsd 47.1(H) 36.0 - 46.1 [facility] Platelet Count 319 154 - 364 THOUS/uL [facility] Mean Platelet Volume 9.0 8.7 - 11.7 [facility] Nucleated Red Blood Cells 0.0 0.0 /100 WBC'S [facility] Abs NRBC 0.0 0.0 THOUS/uL [facility] Differential Type AUTO FE [facility] Neutrophils 68.2(H) 34.0 - 67.9 % [facility] Lymphs 18.2(L) 19.1 - 41.2 % [facility] Monocytes 10.8 6.1 - 12.3 % [facility] Eos 1.0 0.9 - 7.6 % [facility] Basos 1.1 0.2 - 1.5 % [facility] Neutrophils Absolute Count 5.0 2.7 - 5.8 THOUS/uL [facility] Lymphocytes Absolute Count 1.3 1.1 - 3.3 THOUS/uL [facility] Monocytes Absolute Count 0.8 0.4 - 0.9 THOUS/uL [facility] Eosinophils Absolute Count 0.1 0.1 - 0.6 THOUS/uL [facility] Basophils Absolute Count 0.1 0.0 - 0.1 THOUS/uL [facility] Imm Gran 0.7 0.2 - 0.9 % [facility] Abs Imm Gran 0.05 0.0 - 0.1 THOUS/uL [facility] Blood 10/17/2022 8:58 AM EVENTS TRAFFIC CONTROLLER 10/17/2022 9:03 AM EVENTS TRAFFIC CONTROLLER Niya WORKMAN HEMATOLOGY ORDERAB LES [facility] [address] documented in this encounter Visit Diagnoses Diagnosis IGGY (generalized anxiety disorder)- Primary Generalized anxiety disorder Chronic prescription benzodiazepine use Dyslipidemia Other and unspecified hyperlipidemia Testosterone deficiency Other testicular hypofunction Hypovitaminosis D Unspecified vitamin D deficiency documented in this encounter Care Teams Dialysis Nurse Relationship Specialty Start Date End Date Niya Mcknight PA [facility] [place] [address] PCP - General Family Medicine 03/11/22 06/01/23 documented as of this encounter
--- OUTSIDE RECORDS SUMMARY | 2024-08-26 09:50 | XMS_ITS | Encounter Summary ---
Author Organization [facility] Address [address] [place] [address] Care Team Providers Care Financial Sales Professional Name Role Phone Niya Mcknight Primary Care Provider +1- [phone] Reason for Visit * Reason Comments Medication Refill Encounter Details Date Type Department Care Team ([facility] st Contact Info) Description 03/16/2022 Refill [facility] [address] [place] [address] Niya Mcknight PA [address] [place] [address] Medication Refill Social History Tobacco [...] disorder documented in this encounter Care Teams Financial Sales Professional Relationship Specialty Start Date End Date Niya Mcknight PA [address] [place] [address] PCP - General Family Medicine 03/11/22 06/01/23 documented as of this encounter
--- OUTSIDE RECORDS SUMMARY | 2024-08-26 09:50 | XMS_ITS | Encounter Summary ---
Author Organization [facility] Address [address] [place] [address] Care Team Providers Care Scribing Machine Operator Name Role Phone Cody Simms Primary Care Provider +1- [phone] Reason for Visit * Reason Comments Medication Refill Encounter Details Date Type Department Care Team ([facility] st Contact Info) Description 08/12/2021 Refill [facility] [address] [place] [address] Frankie Morales MD [address] [place] [address] Medication Refill Social History Tobacco [...] Primary documented in this encounter Care Teams Scribing Machine Operator Relationship Specialty Start Date End Date Cody Simms PA [address] [place] [id number] PCP - General Physician Customer Service Analyst 10/24/18 03/10/22 documented as of this encounter
--- OUTSIDE RECORDS SUMMARY | 2024-08-26 09:50 | XMS_ITS | Encounter Summary ---
Author Organization [facility] Address [address] [place] [address] Care Team Providers Care Design/Animation Instructor Name Role Phone Cody Simms Primary Care Provider +1- [phone] Encounter Details Date Type Department Care Team (Latest Contact Info) Description 07/19/2021 8:40 AM AUTO TRAVEL COUNSELOR Lab/X-Ray Only [facility] [address] [place] [phone] Cody Simms PA [address] [place], [place] [address] Long-term current use of testosterone replacement therapy; [...] COVID-19? No / Unsure 07/19/2021 8:43 AM AUTO TRAVEL COUNSELOR documented as of this encounter Plan of Treatment Not on file documented as of this encounter Procedures Procedure Name Priority Date/Time Associated Diagnosis Comments TESTOS FREE/TOT ADULT MALE Routine 07/19/2021 8:45 AM AUTO TRAVEL COUNSELOR Long-term current use of testosterone replacement therapy CBC W AUTO DIFF Routine 07/19/2021 8:45 AM AUTO TRAVEL COUNSELOR Medication management LIPID PROFILE Routine 07/19/2021 8:45 AM AUTO TRAVEL COUNSELOR Dyslipidemia COMPREHENSIVE METABOLIC PANEL Routine 07/19/2021 8:45 AM AUTO TRAVEL COUNSELOR Medication management documented in this encounter Results * (ABNORMAL) COMPREHENSIVE METABOLIC PANEL (07/19/2021 8:45 AM AUTO TRAVEL COUNSELOR) Glucose 97 65 - 100 MG/DL [facility] Blood Urea Nitrogen 16 7 - 18 MG/DL [facility] Creatinine 1.2 0.7 - 1.3 MG/DL [facility] Sodium 131(L) 136 - 145 MMOL/L [facility] Potassium 4.0 3.5 - 5.1 MMOL/L [facility] Chloride 94(L) 98 - 107 MMOL/L [facility] Co2 29 21 - 32 MMOL/L [facility] Calcium 8.5 8.5 - 10.1 MG/DL [facility] Protein Total 7.0 6.4 - 8.2 G/DL [facility] Albumin 3.8 3.4 - 5.0 G/DL [facility] A/G Ratio 1.2 0.8 - 2.0 [facility] Alkaline Phosphatase 75 46 - 116 U/L [facility] Alt (SGPT) 39 16 - 63 U/L [facility] AST(SGOT) 19 15 - 37 U/L [facility] Bilirubin, Total 1.1(H) 0.2 - 1.0 MG/DL [facility] GFR Comment IF PATIENT IS , MULTIPLY RESULT BY 1.16 [facility] Est GFR 71(L) >90 ML/MIN/1. 73sq.m [facility] Blood 07/19/2021 8:45 AM AUTO TRAVEL COUNSELOR 07/19/2021 8:47 AM AUTO TRAVEL COUNSELOR Cody WORKMAN CHEMISTRY ORDERABLE S [facility] [address] [place] [address], [facility] * (ABNORMAL) CBC W AUTO DIFF (07/19/2021 8:45 AM AUTO TRAVEL COUNSELOR) Pathologist [facility] White Blood Cell Count 5.9 4.8 - 9.6 THOUS/uL [facility] Red Blood Cell Count 5.06 4.33 - 5.59 MIL/uL [facility] Hemoglobin 15.8 13.1 - 16.8 GM/DL [facility] Hematocrit 46.1 38.8 - 49.0 % [facility] Mean Corpuscular Volume 91.1 82.7 - 94.4 [facility] Mean Corpuscular Hemoglobin 31.2 27.7 - 32.6 PG [facility] Mean Corpuscular Hemoglobin Conc 34.3 32.4 - 35.7 G/DL [facility] Rdwcv 12.7 11.6 - 13.9 % [facility] Rdwsd 42.4 36.0 - 46.1 [facility] Platelet Count 293 154 - 364 THOUS/uL [facility] Mean Platelet Volume 9.9 8.7 - 11.7 [facility] Nucleated Red Blood Cells 0.0 0.0 /100 WBC'S [facility] Abs NRBC 0.0 0.0 THOUS/uL [facility] Differential Type AUTO FE [facility] Neutrophils 72.6(H) 34.0 - 67.9 % [facility] Lymphs 18.0(L) 19.1 - 41.2 % [facility] Monocytes 7.5 6.1 - 12.3 % [facility] Eos 0.5(L) 0.9 - 7.6 % [facility] Basos 0.9 0.2 - 1.5 % [facility] Neutrophils Absolute Count 4.3 2.7 - 5.8 THOUS/uL [facility] Lymphocytes Absolute Count 1.1 1.1 - 3.3 THOUS/uL [facility] Monocytes Absolute Count 0.4 0.4 - 0.9 THOUS/uL [facility] Eosinophils Absolute Count 0.0(L) 0.1 - 0.6 THOUS/uL [facility] Basophils Absolute Count 0.1 0.0 - 0.1 THOUS/uL [facility] Imm Gran 0.5 0.2 - 0.9 % [facility] Abs Imm Gran 0.03 0.0 - 0.1 THOUS/uL [facility] Blood 07/19/2021 8:45 AM AUTO TRAVEL COUNSELOR 07/19/2021 8:47 AM AUTO TRAVEL COUNSELOR Cody WORKMAN HEMATOLOGY ORDERABL ES Performing Organization Address City/[facility]/ZIP Co de Phone Number [facility] [address] [place] [address] * (ABNORMAL) LIPID PROFILE (07/19/2021 8:45 AM AUTO TRAVEL COUNSELOR) Cholesterol 177 0 - 200 MG/DL [facility] Triglycerides 100 0 - 150 MG/DL [facility] HDL 41 40 - 60 MG/DL [facility] LDL Cholesterol 116(H) 0 - 100 MG/DL [facility] LDL/HDL Ratio 2.83 [facility] VLDL, Calc 20 0 - 35 MG/DL [facility] Blood 07/19/2021 8:45 AM AUTO TRAVEL COUNSELOR 07/19/2021 8:47 AM AUTO TRAVEL COUNSELOR Cody WORKMAN CHEMISTRY ORDERABLE S Performing Organization Address City/[facility]/ZIP Co de Phone Number [facility] [address] [place] [address] * TESTOS FREE/TOT ADULT MALE (07/19/2021 8:45 AM AUTO TRAVEL COUNSELOR) Total Testosterone 343 300 - 890 ng/dL [facility] Comment: (NOTE) REFERENCE INTERVAL: Testosterone, Adult Male Access complete set of age- and/or gender-specific reference intervals for this test in the [facility] Test Directory ([employer]). Testosterone Free 67 47 - 244 pg/mL [facility] Comment: (NOTE) INTERPRETIVE INFORMATION: ??Testosterone, Free Joel Stage IV ?35 - 169 pg/mL Joel Stage V ? 41 - 239 pg/mL The concentration of Free Testosterone is derived from a mathematical expression based on the constant for the binding of testosterone to Sex Hormone Binding Globulin (SHBG). Access complete set of age- and/or gender-specific reference intervals for this test in the [facility] Test Directory (TimeBridge). Sex Hormone Binding Globulin 29 (NOTE) REFERENCE INTERVAL: Sex Hormone Binding Globulin Access complete set of age- and/or gender-specif ic reference ??intervals for this test in the [facility] Test Directory ?? (TimeBridge) . 11 - 80 nmol/L [facility] Testosterone Free Percent 1.9 1.6 - 2.9 % [facility] Comment: (NOTE) Performed By: [facility] [address] [place] [address] Knit Goods Cutter Hand: Kacy Lewis MD Blood 07/19/2021 8:45 AM AUTO TRAVEL COUNSELOR 07/19/2021 8:47 AM AUTO TRAVEL COUNSELOR Cody WORKMAN LAB SEND OUT MALACHIA MAGDALENA [employer] [address] documented in this encounter Visit Diagnoses Diagnosis Long-term current use of testosterone replacement therapy Dyslipidemia Other and unspecified hyperlipidemia Medication management Encounter for long-term (current) use of other medications documented in this encounter Care Teams Design/Animation Instructor Relationship Specialty Start Date End Date Cody Simms PA [address] [place] [address] PCP - General Physician Auto Air Conditioning Mechanic 10/24/18 03/10/22 documented as of this encounter
--- OUTSIDE RECORDS SUMMARY | 2024-08-26 09:50 | XMS_ITS | Encounter Summary ---
Author Organization [facility] Address [address] [place] [address] Care Team Providers Care Brick Paver Name Role Phone Niya Mcknight Primary Care Provider +1- [phone] Reason for Visit * Reason Onset Date Comments Other 10/08/2022 Encounter Details Date Type Department Care Team (Late st Contact Info) Description 10/08/2022 Telephone [facility] [address] [place] [address] Niya Mcknight PA [address] [place] [address] Other Social History Tobacco Use [...] Coronavirus/COVID-19? No / Unsure 09/21/2022 2:28 PM PROPULSION SYSTEMS ENGINEER documented as of this encounter Miscellaneous Notes * Telephone Encounter - Jesi Koo LPN - 10/08/2022 3:40 PM CST Patient notified and voiced understanding. ULSION SYSTEMS ENGINEER * Telephone Encounter - Marycarmen Edouard LPN - 10/08/2022 1:30 PM CST Patient called and the psychiatrist Dr. Amador Tanner suggested he has a T3 and T4 with his labs forhis thyroid testing . Please let him know. ULSION SYSTEMS ENGINEER documented in this encounter Plan of Treatment Not on file documented as of this encounter Results * T3 FREE (10/17/2022 8:58 AM PROPULSION SYSTEMS ENGINEER) T3 Free 3.1 2.5 - 3.9 PG/ML [facility] Blood 10/17/2022 8:58 AM PROPULSION SYSTEMS ENGINEER 10/17/2022 9:03 AM PROPULSION SYSTEMS ENGINEER Niya WORKMAN CHEMISTRY ORDERABL ES Performing Organization Address [facility] Co de Phone Number [facility] [employer] [address] [place] [address] * T4 FREE (10/17/2022 8:58 AM PROPULSION SYSTEMS ENGINEER) Free T4 0.98 0.61 - 1.12 NG/DL [facility] [employer] Comment: 0.52-11.0 FEMALES, 1ST TRIMESTER 0.45-0.99 FEMALES, 2ND TRIMESTER 0.48-0.95 FEMALES, 3RD TRIMESTER Blood 10/17/2022 8:58 AM PROPULSION SYSTEMS ENGINEER 10/17/2022 9:03 AM PROPULSION SYSTEMS ENGINEER Niya WORKMAN CHEMISTRY ORDERABL ES Performing Organization Address City/[facility] Co de Phone Number [facility] [employer] [address] [place] [address] documented in this encounter Visit Diagnoses Diagnosis IGGY (generalized anxiety disorder)- Primary Generalized anxiety disorder documented in this encounter Care Teams Brick Paver Relationship Specialty Start Date End Date Niya Mcknight PA [address] [place] [address] PCP - General Family Medicine 03/11/22 06/01/23 documented as of this encounter
--- OUTSIDE RECORDS SUMMARY | 2024-08-26 09:50 | XMS_ITS | Encounter Summary ---
Author Organization [facility] Address [address] [place] [address] Care Team Providers Care Metallurgical Laboratory Assistant Name Role Phone Niya Mcknight Primary Care Provider +1- [phone] Encounter Details Date Type Department Care Team (Late st Contact Info) Description 01/16/2023 10:00 AM CDT Lab/X-Ray Only [facility] [address] [place] [address] Niya Mcknight PA [address] [place], [place] [id number] Male hypogonadism; Hypokalemia; Elevated hemoglobin (HCC) Social [...] TESTOSTERONE LEVELS IN HUMAN SERUM USING THE [employer] IMMUNOASSAY SYSTEMS. THE ACCESS TESTOSTERONE ASSAY IS A COMPETITIVE BINDING IMMUNOENZYMATIC ASSAY. ??TESTOSTERONE TEST RESULTS FROM DIFFERENT MANUFACTURERS WILL VARY. RESULTS SHOULD BE INTERPRETED IN LIGHT OF TOTAL CLINICAL PRESENTATION OF THE PATIENT, INCLUDING SYMPTOMS, CLINICAL HISTORY, DATA FROM ADDITIONAL TESTS AND OTHER APPROPRIATE INFORMATION. 175.00 - 781.00 NG/DL [facility] [employer] 01/16/2023 9:58 AM CDT 01/16/2023 11:20 AM CDT Hi Deluna MD CHEMISTRY ORD ERABLES [facility] [address] [place] [address] * (ABNORMAL) TESTOSTERONE FREE (MALE) (01/16/2023 9:58 AM CDT) Testosterone Free 35(L) 47 - 244 pg/mL [employer] Comment: (NOTE) INTERPRETIVE INFORMATION: ??Testosterone, Free Calculation [...] Children, or Individuals on Testosterone-Suppressing Hormone Therapy) ([employer] test code [id number]). For individuals on testosterone hormone therapy, refer to cisgender male reference intervals. No reference intervals have been established for males younger than 14 years or for cisgender females. For a complete set of all established reference intervals, refer to [employer]/Tests/Pub/[id number]. Performed By: [employer] [address] [place] [address] Drafter Electrical: Jeb Machuca MD, PhD Blood 01/16/2023 9:58 AM CDT 01/16/2023 11:17 AM CDT Hi Deluna MD LAB SEND OUT ORDERABLES [employer] [address] [place] [address] * (ABNORMAL) BASIC METABOLIC PANEL (CHEM8) (01/16/2023 9:58 AM CDT) [facility] Glucose 107 74 - 109 MG/DL [facility] Blood Urea Nitrogen 17 7 - 25 MG/DL [facility] Creatinine 1.3 0.6 - 1.3 MG/DL [facility] Sodium 137 136 - 145 MMOL/L [facility] Potassium 4.1 3.5 - 5.1 MMOL/L [facility] Chloride 102 98 - 107 MMOL/L [facility] Co2 30 21 - 31 MMOL/L [facility] Calcium 9.5 8.6 - 10.3 MG/DL [facility] GFR Comment IF PATIENT IS , MULTIPLY RESULT BY 1.16 [facility] Est GFR 64(L) >90 ML/MIN/1. 73sq.m [facility] Blood 01/16/2023 9:58 AM CDT 01/16/2023 10:03 AM CDT Niya WORKMAN CHEMISTRY ORDERABL ES Performing Organization Address City/State/[facility] Co de Phone Number [facility] [address] [place] [address] * (ABNORMAL) CBC W AUTO DIFF (01/16/2023 9:58 AM CDT) White Blood Cell Count 5.5 4.8 - 9.6 THOUS/uL [facility] Red Blood Cell Count 5.06 4.33 - 5.59 MIL/uL [facility] Hemoglobin 16.1 13.1 - 16.8 GM/DL [facility] Hematocrit 47.0 38.8 - 49.0 % [facility] Mean Corpuscular Volume 92.9 82.7 - 94.4 [facility] Mean Corpuscular Hemoglobin 31.8 27.7 - 32.6 PG [facility] Mean Corpuscular Hemoglobin Conc 34.3 32.4 - 35.7 G/DL [facility] Rdwcv 12.4 11.6 - 13.9 % [facility] Rdwsd 42.5 36.0 - 46.1 [facility] Platelet Count 291 154 - 364 THOUS/uL [facility] Mean Platelet Volume 9.3 8.7 - 11.7 [facility] Differential Type AUTO FE [facility] Neutrophils 69.1(H) 34.0 - 67.9 % [facility] Lymphs 19.1 19.1 - 41.2 % [facility] Monocytes 9.7 6.1 - 12.3 % [facility] Eos 0.7(L) 0.9 - 7.6 % [facility] Basos 0.7 0.2 - 1.5 % [facility] Neutrophils Absolute Count 3.8 2.7 - 5.8 THOUS/uL [facility] Lymphocytes Absolute Count 1.1 1.1 - 3.3 THOUS/uL [facility] Monocytes Absolute Count 0.5 0.4 - 0.9 THOUS/uL [facility] Eosinophils Absolute Count 0.0(L) 0.1 - 0.6 THOUS/uL [facility] Basophils Absolute Count 0.0 0.0 - 0.1 THOUS/uL [facility] Imm Gran 0.7 0.2 - 0.9 % [facility] Abs Imm Gran 0.04 0.0 - 0.1 THOUS/uL [facility] Blood 01/16/2023 9:58 AM CDT 01/16/2023 10:03 AM CDT Hi Deluna MD HEMATOLOGY OR DERABLES Performing Organization Address City/[facility] Co de Phone Number [facility] - [address] * PSA TOTAL, SCREEN (01/16/2023 9:58 AM CDT) Prostate Specific Antigen Total 0.61 0 - 4.00 NG/ML [facility] PSA Comment SEE NOTES [facility] Comment: The Access [employer] PSA assay is a paramagnetic particle, chemiluminescent immunoassay for the quantitative determination of prostate specific antigen (PSA) levels in human serum using the [employer]assay Systems. Blood 01/16/2023 9:58 AM CDT 01/16/2023 10:03 AM CDT Hi Deluna MD CHEMISTRY ORD ERABLES Performing Organization Address [facility] Co de Phone Number [address] documented in this encounter Visit Diagnoses Diagnosis Male hypogonadism Other testicular hypofunction Hypokalemia Hypopotassemia Elevated hemoglobin (HCC) Other hemoglobinopathies documented in this encounter Care Teams Metallurgical Laboratory Assistant Relationship Specialty Start Date End Date Niya Mcknight PA [address] [place] [address] PCP - General Family Medicine 03/11/22 06/01/23 documented as of this encounter
--- OUTSIDE RECORDS SUMMARY | 2024-08-26 09:50 | XMS_ITS | Encounter Summary ---
Author Organization [facility] Address [address] [place] [address] Care Team Providers Care Predatory Game Hunter Name Role Phone Cody Simms Primary Care Provider +1- [phone] Reason for Visit * Reason Comments Medication Refill Encounter Details Date Type Department Care Team (Late st Contact Info) Description 06/30/[address] [facility] Medicine [address] [address] [place] [address] Galen Jones, [address] [address] [place] [address] Medication Refill Social History Tobacco [...] disorder documented in this encounter Care Teams Predatory Game Hunter Relationship Specialty Start Date End Date Cody Simms PA [address] [place] [address] PCP - General Physician Information Technology Analyst 10/24/18 03/10/22 documented as of this encounter
--- OUTSIDE RECORDS SUMMARY | 2024-08-26 09:50 | XMS_ITS | Encounter Summary ---
Author Organization [facility] Address [address] [place] [address] Care Team Providers Care [employer] Name Role Phone Niya Mcknight Primary Care Provider +1- [phone] Reason for Visit * Reason Comments Follow-up F/U: still dealing w ith erectile dysfunction, exposed to second hand smoke, pt states T levels have been decreased due to not taking testosterone (needs prescription) Encounter Details Date Type Department Care Team (Late st Contact Info) Description 01/25/2023 11:45 AM CDT Office Visit [facility] Urology [address] [place] [phone] Hi Deluna MD [address] [place] [address] Male hypogonadism (Primary Dx) Social History [...] note were not included. To the patient: [employer] now allows progress notes to be visible to patients. Please note that these notes include professional medical terminology that may be somewhat confusing without some interpretation from yourmedical professional team. The intent of progress notes is to communicate information between any medical care administrator involved in your case and to serve [...] months (around 07/28/2023) for with TRT labs. [facility] Please Note: 1) Please note that [...] questions about progress notes from patients through [employer] messages or phone calls until the next visit. documented in this encounter Plan of Treatment Not on file documented as of this encounter Procedures Procedure Name Priority Date/Time Associated Diagnosis Comments POCT URINALYSIS DIPSTICK (MANUAL) Routine 01/25/2023 11:42 AM CDT Male hypogonadism documented in this encounter Results * MISC REF LAB (08/02/2023 1:54 PM GLUE REEL OPERATOR) Miscellaneous Ref Lab DONE [facility] Blood 08/02/2023 1:54 PM GLUE REEL OPERATOR 08/02/2023 1:57 PM GLUE REEL OPERATOR Hi Deluna MD LAB SEND OUT ORDERABLES [facility] [address] [place] [address] * POCT URINALYSIS DIPSTICK (MANUAL) (01/25/2023 11:42 AM CDT) Leukocyte Esterase UA neg cell/hpf [facility] Nitrite UA neg mg/dL [facility] Urobilinogen UA 0.2 EU/dL [facility] Protein UA Negative mg/dL [facility] pH UA 5.5 pH [facility] Blood UA Trace Negative, Trace, Small, Moderate mg/dL [facility] Specific Calera UA 1.020 [facility] Ketones UA Negative mg/dL [facility] Bilirubin UA neg Negative, Small mg/dL [facility] Glucose UA Negative mg/dL [facility] Color Fluid Yellow [facility] UROLO GY [facility] Clarity Fluid Clear URO LOGY [facility] 01/25/2023 11:4 2 AM CDT Hi Deluna MD POINT OF CARE TEST ORDERABLES Performing Organization Address City/[facility]/ZIP Co de Phone Number [facility] [address] [place] [address] documented in this encounter Visit Diagnoses Diagnosis Male hypogonadism- Primary Other testicular hypofunction documented in this encounter Care Teams [employer] Relationship Specialty Start Date End Date Niya Mcknight PA [address] [place] [address] PCP - General Family Medicine 03/11/22 06/01/23 documented as of this encounter
--- OUTSIDE RECORDS SUMMARY | 2024-08-26 09:50 | XMS_ITS | Encounter Summary ---
Author Organization [facility] Address [address] [place] [address] Care Team Providers Care Pathology Laboratory Aides Teacher Name Role Phone Niya Mcknight Primary Care Provider +1- [phone] Reason for Visit * Reason Comments Establish Care Patient is here for testosterone deficiency. * Referral (Routine) - Closed Specialty Diagnoses / Procedures Referred By Conturi t Referred To Contact Urology Diagnoses Testosterone deficiency Niya Mcknight PA [address] [place] [address] [facility] [address] [place] [phone] Referral ID Status Reason Start Date Expiration Date V isits Requested Visits Authorized [id number] Closed Consult 10/22/2022 1 1 Encounter Details Date Type Department Care Team (Latest Contact Info) Description 11/30/2022 3:00 PM CDT Initial consult [facility] Urology [address] [place] [address] Hi Deluna MD [address] [place] [address] Testosterone deficiency (Primary Dx) Social History [...] note were not included. To the patient: [employer] now allows progress notes to be visible to patients. Please note that these notes include professional medical terminology that may be somewhat confusing without some interpretation from yourmedical professional team. The intent of progress notes is to communicate information between any medical surgical tech involved in your case and to serve [...] questions about progress notes from patients through Webcollagehart messages or phone calls until the next [...] Small, Moderate mg/dL [facility] Specific [place] UA 1.005 [facility] Ketones UA Negative mg/dL [facility] UROLOG Y [facility] Bilirubin UA Negative Negative, Small mg/dL UROLOGY [facility] Glucose UA Negative mg/dL [facility] Color Fluid Yellow FH UROLO GY [facility] Clarity Fluid Clear Clear URO LOGY [facility] Urine 11/30/2022 3:32 PM CDT Hi Deluna MD POINT OF CARE TEST ORDERABLES UROLOGY [facility] [address] documented in this encounter Visit Diagnoses Diagnosis Testosterone deficiency- Primary Other testicular hypofunction documented in this encounter Care Teams Pathology Laboratory Aides Teacher Relationship Specialty Start Date End Date Niya Mcknight PA [address] [place] [address] PCP - General Family Medicine 03/11/22 06/01/23 documented as of this encounter
--- OUTSIDE RECORDS SUMMARY | 2024-08-26 09:50 | XMS_ITS | Encounter Summary ---
Author Organization [facility] Address [address] [place] [address] Care Team Providers Care Emergency Services Dispatcher Name Role Phone Niya Mcknight Primary Care Provider +1- [phone] Reason for Visit * Reason Comments Medication Refill Encounter Details Date Type Department Care Team ([facility] st Contact Info) Description 12/30/2022 Refill [facility] Practice [address] [place] [address] Niya Mcknight PA [address] [place] [address] Medication Refill Social History Tobacco [...] on filedocumented in this encounter Care Teams Emergency Services Dispatcher Relationship Specialty Start Date End Date Niya Mcknight PA [address] [place] [address] PCP - General Family Medicine 03/11/22 06/01/23 documented as of this encounter
--- OUTSIDE RECORDS SUMMARY | 2024-08-26 09:50 | XMS_ITS | Encounter Summary ---
Author Organization [facility] Address [address] [place] [address] Care Team Providers Care Residential Property Consultant Name Role Phone Niya Mcknight Primary Care Provider +1- [phone] Reason for Visit * Reason Comments Follow-up 3 month f/u. Request ing refill on alprazolam. Would like to pick it up today because he is leaving to work in the [place] area. Encounter Details Date Type Department Care Team (Late st Contact Info) Description 01/18/2023 2:00 PM CDT Office Visit [facility] [address] [place] [address] [place] [address] [place] [address] Male hypogonadism (Primary Dx); IGGY (generalized [...] he is leaving to work in the [place] area. IGGY (generalized anxiety disorder) - Mandy Lyles DO 01/27/23 3856 Edited Patient has a history of anxiety. [...] and . Patient voices understanding. -Continue same. STACKER OPERATOR reviewed no discrepancies. Refills Xanax 1 mg PO TID # 90 with 1 refill. - Follow up with Niya Mcknight PA-C in 2-3 months Male hypogonadism - Mandy Lyles, 01/27/23 5533 Written Patient is being followed by Dr. [...] TESTOSTERONE LEVELS IN HUMAN SERUM USING THE [employer] IMMUNOASSAY SYSTEMS. THE ACCESS TESTOSTERONE ASSAY IS [...] Trace Negative, Trace, Small, Moderate mg/dL Specific [place] UA 1.020 Ketones UA Negative mg/dL Bilirubin [...] and . Patient voices understanding. -Continue same. STACKER OPERATOR reviewed no discrepancies. Refills Xanax 1 mg [...] Mandy Lyles DO 01/27/2023 5:44 PM Disclaimer: [employer] now allows inpatient and outpatient progress notes to be visible to patients. Please note that these notes will include professional medical terminology that may be somewhat confusing without some interpretation from your medical professional team. The intent of progress notes is to communicate information between rn medical surgical involved in your care or to serve as future reference for myself or any other provider when reviewing your medical case, as well as a reference for the patient viewing the record. Please ask a member of the medical team if you have any questions about terminology or content of the note. This elementary tutor was created in part using [employer] Direct voice recognition software, electronically transcribed and electronically signed. Be aware that this elementary tutor may contain errors not detected by proofreading. [...] and . Patient voices understanding. -Continue same. STACKER OPERATOR reviewed no discrepancies. Refills Xanax 1 mg PO TID # 90 with 1 refill. - Follow up with Niya Mcknight PA-C in 2-3 months documented in this encounter Plan of Treatment Not on file documented as of this encounter Visit Diagnoses Diagnosis Male hypogonadism- Primary Other testicular hypofunction IGGY (generalized anxiety disorder) Generalized anxiety disorder documented in this encounter Care Teams Residential Property Consultant Relationship Specialty Start Date End Date Niya Mcknight PA [address] [place] [address] PCP - General Family Medicine 03/11/22 06/01/23 documented as of this encounter
--- OUTSIDE RECORDS SUMMARY | 2024-08-26 09:50 | XMS_ITS | Encounter Summary ---
Author Organization [facility] Address [address] [place] [address] Care Team Providers Care Eyelet Machine Operator Name Role Phone Cody Simms Primary Care Provider +1- [phone] Reason for Visit * Reason Comments Follow-up on depression lexapr o is not working Dizziness Encounter Details Date Type Department Care Team (Late st Contact Info) Description 09/18/2021 3:30 PM FIELD TECHNICAL SPECIALIST Office Visit [facility] [address] [place] [address] Cody Smims PA [address] [place] [address] Dizziness (Primary Dx); IGGY (generalized anxiety disorder); Male hypogonadism Social History [...] COVID-19? No / Unsure 09/17/2021 10:15 AM FIELD TECHNICAL SPECIALIST documented as of this encounter Last Filed Vital Signs Vital Sign Reading Time Taken Comments Blood Pressure 130/80 09/18/2021 3:37 PM FIELD TECHNICAL SPECIALIST Pulse 82 09/18/2021 3:37 PM FIELD TECHNICAL SPECIALIST Temperature 36.5 ??C (97.7 ??F) 09/18/2021 3:37 PM CS T Respiratory Rate 16 09/18/2021 3:37 PM FIELD TECHNICAL SPECIALIST Oxygen Saturation 99% 09/18/2021 3:37 PM FIELD TECHNICAL SPECIALIST Inhaled Oxygen Concentration - - Weight 79.4 kg (175 lb) 09/18/2021 3:37 PM FIELD TECHNICAL SPECIALIST Height 177.8 cm (5' 10 ) 09/18/2021 3:37 PM FIELD TECHNICAL SPECIALIST Body Mass Index 25.11 09/18/2021 3:37 PM FIELD TECHNICAL SPECIALIST documented in this encounter Progress Notes [...] allergies listed in the above medical record D TECHNICAL SPECIALIST documented in this encounter Plan of Treatment Not on file documented as of this encounter Visit Diagnoses Diagnosis Dizziness- Primary Dizziness and giddiness IGGY (generalized anxiety disorder) Generalized anxiety disorder Male hypogonadism Other testicular hypofunction documented in this encounter Care Teams Eyelet Machine Operator Relationship Specialty Start Date End Date Cody Simms PA [address] [place] [address] PCP - General Physician Waste Machine Tender 10/24/18 03/10/22 documented as of this encounter
--- OUTSIDE RECORDS SUMMARY | 2024-08-26 09:50 | XMS_ITS | Encounter Summary ---
Author Organization [facility] Address [address] [place] [address] Care Team Providers Care Associate Media Planner Name Role Phone Niya Mcknight Primary Care Provider +1- [phone] Reason for Visit * Reason Comments Medication Refill Encounter Details Date Type Department Care Team (Late st Contact Info) Description 08/22/2022 Refill [facility] Practice [address] [place] [address] [place] [address] [place] [id number] Medication Refill Social History Tobacco Use Types [...] disorder documented in this encounter Care Teams Associate Media Planner Relationship Specialty Start Date End Date Niya Mcknight PA [address] [place] [address], [place] [address] PCP - General Family Medicine 03/11/22 06/01/23 documented as of this encounter
--- OUTSIDE RECORDS SUMMARY | 2024-08-26 09:50 | XMS_ITS | Encounter Summary ---
Author Organization [facility] Address [address] [place] [address] Care Team Providers Care Commission Associate Name Role Phone Niya Mcknight Primary Care Provider +1- [phone] Reason for Visit * Reason Comments Shoulder Injury Encounter Details Date Type Department Care Team (Late st Contact Info) Description 03/11/2022 1:43 PM CDT - 03/11/2022 3:27 PM CDT Emergency [facility] Emergency Department [address] [place] [address] Aaron Peguero MD [address] [place] [address] Acute bursitis of right shoulder [...] sent through Care Everywhere. * Shoulder Bursitis (Spot Washer) (Canadian) documented in this encounter Medications at Time [...] from the original note were not included. [facility] Emergency Room General Encounter CHIEF [...] Result by Marques Soto Results In (03/11 1065) EXAMINATION: XR SHOULDER RIGHT 2 VIEWS CLINICAL [...] 24 hour(s)). Old charts were reviewed per [employer] EMR. Pertinent details are summarized above. All [...] signed by: Danelle Purcell MD 03/11/2022 3:05 [facility] Aaron Peguero MD [facility] IMG DIAG ORDERA BLES documented in this encounter Visit Diagnoses Diagnosis Acute bursitis of right shoulder- Primary documented in this encounter Care Teams Commission Associate Relationship Specialty Start Date End Date Niya Mcknight PA [address] [place] [address] PCP - General Family Medicine 03/11/22 06/01/23 documented as of this encounter
--- OUTSIDE RECORDS SUMMARY | 2024-08-26 09:50 | XMS_ITS | Encounter Summary ---
Author Organization [facility] Address [address] [place] [address] Care Team Providers Care Form Setter Steel Pan Forms Name Role Phone Cody Simms Primary Care Provider +1- [phone] Reason for Visit * Reason Comments Medication Refill Encounter Details Date Type Department Care Team (Late st Contact Info) Description 08/12/2021 Refill [facility] [address] [address] [place] [address] Galen Jones, [address] [address] [place] [address] Medication Refill Social History Tobacco [...] - 08/13/2021 9:27 AM CST Refill request MAN documented in this encounter Plan of Treatment Not on file documented as of this encounter Visit Diagnoses Diagnosis Male hypogonadism Other testicular hypofunction documented in this encounter Care Teams Form Setter Steel Pan Forms Relationship Specialty Start Date End Date Cody Simms PA [address] [place] [address] PCP - General Physician Sugarcane Research Technician 10/24/18 03/10/22 documented as of this encounter
--- OUTSIDE RECORDS SUMMARY | 2024-08-26 09:50 | XMS_ITS | Encounter Summary ---
Author Organization [facility] Address [address] [place] [address] Care Team Providers Care Paunch Trimmer Name Role Phone Niya Mcknight Primary Care Provider +1- [phone] Reason for Visit * Reason Comments Medication Refill Encounter Details Date Type Department Care Team ([facility] st Contact Info) Description 10/21/2022 Refill [facility] Family Practice [address] [place] [address] Niya Mcknight PA [address] [place] [address] Medication Refill Social History Tobacco [...] Coronavirus/COVID-19? No / Unsure 10/17/2022 8:55 AM BILINGUAL KINDERGARTEN TEACHER documented as of this encounter Plan of Treatment Not on file documented as of this encounter Visit Diagnoses Diagnosis IGGY (generalized anxiety disorder) Generalized anxiety disorder documented in this encounter Care Teams Paunch Trimmer Relationship Specialty Start Date End Date Niya Mcknight PA [address] [place] [address] PCP - General Family Medicine 03/11/22 06/01/23 documented as of this encounter
--- OUTSIDE RECORDS SUMMARY | 2024-08-26 09:50 | XMS_ITS | Encounter Summary ---
Author Organization [facility] Address [address] [place] [address] Care Team Providers Care Flight Control Manager Name Role Phone Niya Mcknight Primary Care Provider +1- [phone] Reason for Visit * Reason Comments Medication Refill Encounter Details Date Type Department Care Team (Late st Contact Info) Description 12/29/2022 Refill [place] [facility] [address] [address] [place] [address] Cody Simms PA [address] [place] [address] Medication Refill Social History Tobacco [...] therapy documented in this encounter Care Teams Flight Control Manager Relationship Specialty Start Date End Date Niya Mcknight PA [address] [place] [address] PCP - General Family Medicine 03/11/22 06/01/23 documented as of this encounter
--- OUTSIDE RECORDS SUMMARY | 2024-08-26 09:50 | XMS_ITS | Encounter Summary ---
Author Organization [facility] Address [address] [place] [address] Care Team Providers Care Automotive Engineering Teacher Name Role Phone Niya Mcknight Primary Care Provider +1- [phone] Reason for Visit * Reason Comments Rash Encounter Details Date Type Department Care Team ([facility] st Contact Info) Description 11/16/2022 1:10 PM CDT - 11/16/2022 1:45 PM CDT Emergency [facility] Emergency Department [address] [place] [address] John Polk MD [address] [place] [address] Herpes simplex (Primary Dx) Discharge Disposition: Home [...] Everywhere. * Oral Herpes Infection (AfterCare(R) Instructions(ER/ED)) (Bahamian) documented in this encounter Medications at Time [...] from the original note were not included. [facility] Emergency Room General Encounter CHIEF COMPLAINT [...] 24 hour(s)). Old charts were reviewed per [employer] EMR. Pertinent details are summarized above. All [...] complication documented in this encounter Care Teams Automotive Engineering Teacher Relationship Specialty Start Date End Date Niya Mcknight PA [address] [place] [address] PCP - General Family Medicine 03/11/22 06/01/23 documented as of this encounter
--- OUTSIDE RECORDS SUMMARY | 2024-08-26 09:50 | XMS_ITS | Encounter Summary ---
Author Organization [facility] Address [address] [place] [address] Care Team Providers Care Oral Therapist Name Role Phone Cody Simms Primary Care Provider +1- [phone] Reason for Visit * Reason Comments Medication Refill Encounter Details Date Type Department Care Team (Late st Contact Info) Description 01/21/2022 Refill [facility] Family Practice [address] [place] [address] Niya Mcknight PA [address] [place] [address] Medication Refill Social History Tobacco [...] on filedocumented in this encounter Care Teams Oral Therapist Relationship Specialty Start Date End Date Cody Simms PA [address] [place] [address] PCP - General Physician Kier Pleater 10/24/18 03/10/22 documented as of this encounter
--- OUTSIDE RECORDS SUMMARY | 2024-08-26 09:50 | XMS_ITS | Encounter Summary ---
Author Organization [facility] Address [address] [place] [address] Care Team Providers Care Writing Manager Name Role Phone Niya Mcknight Primary Care Provider +1- [phone] Reason for Visit * Reason Onset Date Comments Medication Refill 01/11/2023 Encounter Details Date Type Department Care Team (Late st Contact Info) Description 01/11/2023 Telephone [facility] Urology [address] [place] [address] Hi Deluna MD [address] [place] [address] Medication Refill Social History Tobacco [...] will justgo back to his Urologist in [place] and not have to deal with this crap. Told me to have a nice day bye. documented in this encounter Plan of Treatment Not on file documented as of this encounter Visit Diagnoses Not on filedocumented in this encounter Care Teams Writing Manager Relationship Specialty Start Date End Date Niya Mcknight PA [address] [place] [address] PCP - General Family Medicine 03/11/22 06/01/23 documented as of this encounter
--- OUTSIDE RECORDS SUMMARY | 2024-08-26 09:50 | XMS_ITS | Encounter Summary ---
Author Organization [facility] Address [address] [place] [address] Care Team Providers Care Internet Media Planner Name Role Phone Niya Mcknight Primary Care Provider +1- [phone] Reason for Referral * Referral (Routine) - Closed Specialty Diagnoses / Procedures Referred By Conturi t Referred To Contact Urology Diagnoses Testosterone deficiency Niya Mcknight PA [address] [place] [address] [address] [address] Referral ID Status Reason Start Date Expiration Date V isits Requested Visits Authorized [id number] Closed Consult 10/22/2022 1 1 ORATE AUDITOR Reason for Visit * Reason Comments Follow-up Here for 1 month fol low up post labs. Encounter Details Date Type Department Care Team (Late st Contact Info) Description 10/22/2022 2:00 PM CORPORATE AUDITOR Office Visit [address] [address] Niya Mcknight PA [address] [place] [address] IGGY (generalized anxiety disorder) (Primary Dx); [...] Coronavirus/COVID-19? No / Unsure 10/22/2022 1:57 PM CORPORATE AUDITOR documented as of this encounter Last Filed Vital Signs Vital Sign Reading Time Taken Comments Blood Pressure 160/92 10/22/2022 2:03 PM CORPORATE AUDITOR Pulse 86 10/22/2022 2:03 PM CORPORATE AUDITOR Temperature 36.3 ??C (97.4 ??F) 10/22/2022 2:03 PM CS T Respiratory Rate 18 10/22/2022 2:03 PM CORPORATE AUDITOR Oxygen Saturation 100% 10/22/2022 2:03 PM CORPORATE AUDITOR Inhaled Oxygen Concentration - - Weight 76.2 kg (168 lb) 10/22/2022 2:03 PM CORPORATE AUDITOR Height 177.8 cm (5' 10 ) 10/22/2022 2:03 PM CORPORATE AUDITOR Body Mass Index 24.11 10/22/2022 2:03 PM CORPORATE AUDITOR documented in this encounter Patient Instructions * Patient Instructions* Niya Mcknight PA - 10/22/2022 2:00 PM CORPORATE AUDITOR Have blood pressures checked when you have labs drawn Have labs drawn in 1 month. Office will call with date and time of appointment with urologist. ORATE AUDITOR * Attachments The following attachments cannot be sent through Care Everywhere. * Hypokalemia (General Information) (Namibian) documented in this encounter Progress Notes * [...] use, dyslipidemia, testosterone deficiency and hypovitaminosis. Treatment- [employer] ASSISTANT MANAGER reviewed. No concerns noted. Continued on currentmedication regimen. Medication contract reviewed and signature obtained. Drug screen obtained. Patient was to get back in with counseling at [facility]. Continued with testosterone therapy. Patient have CBC CMP lipid TSH vitamin-D free and total testosterone in follow-up in 3 months. IGGY (generalized anxiety disorder) - JI Vasquez 10/22/22 1625 Written Patient now seen [...] (generalized anxiety disorder) - JI Vasquez 10/22/22 6749 Edited Patient now seen Dr. Tanner for [...] urologist. JI Vasquez 10/22/2022 4:31 PM This patch setter was electronically signed. It was dictated by use of voice recognition software and electronically transcribed. The patch setter may contain errors not detected in proofreading. ORATE AUDITOR documented in this encounter Miscellaneous Notes * Assessment & Plan Note - Niya Mcknight PA - 10/22/2022 4:26 PM CORPORATE AUDITOR Associated Problem(s): Testosterone deficiency Currently on Depo [...] Continue same at present. Referral to urology ORATE AUDITOR * Assessment & Plan Note - Niya Mcknight PA - 10/22/2022 4:26 PM CORPORATE AUDITOR Associated Problem(s): Hypovitaminosis D Vitamin D 25-Hydroxy Date Value Ref Range Status 10/17/2022 30.00 - 100.00 mg/dL Final 39.9 <20 Deficient 20-29 Insufficient 30-100 Sufficient >100 Upper Safety Limit Currently on vitamin-D 5000 IU daily. Denies any adverse side effects to current medication regimencontinue same ORATE AUDITOR * Assessment & Plan Note - Niya Mcknight PA - 10/22/2022 4:25 PM CORPORATE AUDITOR Associated Problem(s): Dyslipidemia Last 3 Lipid Profile [...] Instructed to decrease concentrated carbohydrates in diet ORATE AUDITOR * Assessment & Plan Note - Niya Mcknight PA - 10/22/2022 4:25 PM CORPORATE AUDITOR Associated Problem(s): IGGY (generalized anxiety disorder) Patient [...] p.r.n.. Continue same. Follow-up in 3 months ORATE AUDITOR documented in this encounter Plan of Treatment Scheduled Referrals Name Type Priority Associated Diagnoses Orde r Schedule AMB REFERRAL TO UROLOGY Outpatient Referral Routine Testosterone deficiency Ordered: 10/22/2022 documented as of this encounter Results * (ABNORMAL) BASIC METABOLIC PANEL (CHEM8) (01/16/2023 9:58 AM CDT) Glucose 107 74 - 109 MG/DL [facility] Blood Urea Nitrogen 17 7 - 25 MG/DL [facility] Creatinine 1.3 0.6 - 1.3 MG/DL [facility] Sodium 137 136 - 145 MMOL/L [facility] Potassium 4.1 3.5 - 5.1 MMOL/L [facility] Chloride 102 98 - 107 MMOL/L [facility] Co2 30 21 - 31 MMOL/L [facility] Calcium 9.5 8.6 - 10.3 MG/DL [facility] GFR Comment IF PATIENT IS , MULTIPLY RESULT BY 1.16 [facility] Est GFR 64(L) >90 ML/MIN/1. 73sq.m [facility] Blood 01/16/2023 9:58 AM CDT 01/16/2023 10:03 AM CDT Niya WORKMAN CHEMISTRY ORDERABL ES [facility] [address] documented in this encounter Visit Diagnoses Diagnosis IGGY (generalized anxiety disorder)- Primary Generalized anxiety disorder Testosterone deficiency Other testicular hypofunction Elevated hemoglobin (HCC) Other hemoglobinopathies Hypokalemia Hypopotassemia Dyslipidemia Other and unspecified hyperlipidemia Hypovitaminosis D Unspecified vitamin D deficiency documented in this encounter Care Teams Internet Media Planner Relationship Specialty Start Date End Date Niya Mcknight PA [address] [place] [address] PCP - General Family Medicine 03/11/22 06/01/23 documented as of this encounter
--- OUTSIDE RECORDS SUMMARY | 2024-08-26 09:50 | XMS_ITS | Encounter Summary ---
Author Organization [facility] Address [address] [place] [address] Care Team Providers Care General Partner Name Role Phone Niya Mcknight Primary Care Provider +1- [phone] Reason for Visit * Reason Comments Follow-up [...] Description 03/25/2022 1:30 PM CDT Office Visit [facility] Practice [address] [place] [address] Niya Mcknight PA [address] [place] [address] IGGY (generalized anxiety disorder) (Primary [...] the past. Was seeing Kenrick Kincaid @ [facility]. States he has not seen him for some time but is willing to go back. Patient relates history of being seen in the emergency room here at [facility] for bursitis. Patient also seen at [facility] facility on March 14, 2022 in the [...] due for medication contract and drug screen. CORE BAKER reviewed and no concerns noted CURRENT MEDICATIONS; [...] the past. Was seeing Kenrick Kincaid @ [facility]. States he has not seen him for some time but is willing to go back. Patient relates history of being seen in the emergency room here at [facility] for bursitis. Patient also seen at [facility] facility on March 14, 2022 in the [...] due for medication contract and drug screen. CORE BAKER reviewed and no concerns noted. Medication contract [...] 06/25/2022). JI Vasquez 04/01/2022 3:09 PM This hse manager was electronically signed. It was dictated by use of voice recognition software and electronically transcribed. The hse manager may contain errors not detected in proofreading. documented in this encounter Miscellaneous Notes * Assessment & Plan Note - Niya Mcknight PA - 04/01/2022 3:01 PM CDT Associated Problem(s): IGGY (generalized anxiety disorder) Patient currently on Xanax 0.5 mg t.i.d. p.r.n.. Has had anxiety for many years. Has done counseling in the past. Was seeing Kenrick Kincaid @ [facility]. States he has not seen him for some time but is willing to go back. Patient relates history of being seen in the emergency room here at [facility] for bursitis. Patient also seen at [facility] on March 14, 2022 in the ED [...] due for medication contract and drug screen. CORE BAKER reviewed and no concerns noted. Medication contract [...] use documented in this encounter Care Teams General Partner Relationship Specialty [place] [address] [place] [address] PCP - General Family Medicine 03/11/22 06/01/23 documented as of this encounter
--- OUTSIDE RECORDS SUMMARY | 2024-08-26 09:51 | XMS_ITS | Encounter Summary ---
Author Organization [facility] Address [address] [place] [address] Care Team Providers Care Front Maker Lockstitch Name Role Phone Cody Simms Primary Care Provider +1- [phone] Reason for Visit * Reason Onset Date Comments Medication Refill 07/15/2020 Encounter Details Date Type Department Care Team (Late st Contact Info) Description 07/15/2020 Refill [facility] Practice [address] [place] [address] Cody Simms PA [address] [place] [address] Medication Refill Social History Tobacco [...] COVID-19? No / Unsure 10/11/2020 8:40 AM PUMPER HELPER documented as of this encounter Miscellaneous Notes * Telephone Encounter - Zuleika Joseph CNA - 07/15/2020 3:00 PM PUMPER HELPER Pt called and said he is needing to get a refill on needles to draw up his Testosterone. ER HELPER documented in this encounter Plan of Treatment Not on file documented as of this encounter Visit Diagnoses Diagnosis Testosterone deficiency- Primary Other testicular hypofunction documented in this encounter Care Teams Front Maker Lockstitch Relationship Specialty Start Date End Date Cody Simms PA [address] [place] [address] PCP - General Physician Sql Data Architect 10/24/18 03/10/22 documented as of this encounter
--- OUTSIDE RECORDS SUMMARY | 2024-08-26 09:51 | XMS_ITS | Encounter Summary ---
Author Organization [facility] Address [address] [place] [address] Care Team Providers Care Location Worker Name Role Phone Cody Simms Primary Care Provider +1- [phone] Reason for Visit * Reason Onset Date Comments Results 03/03/2021 Encounter Details Date Type Department Care Team (Late st Contact Info) Description 03/03/2021 Telephone [facility] Practice [address] [place] [address] Cody Simms PA [address] [place] [address] Results Social History Tobacco Use [...] on filedocumented in this encounter Care Teams Location Worker Relationship Specialty Start Date End Date Cody Simms PA [address] [place] [address] PCP - General Physician Film Reproducer 10/24/18 03/10/22 documented as of this encounter
--- OUTSIDE RECORDS SUMMARY | 2024-08-26 09:51 | XMS_ITS | Encounter Summary ---
Author Organization [facility] Address [address] [place] [address] Care Team Providers Care Anchorer Name Role Phone Cody Simms Primary Care Provider +1- [phone] Reason for Visit * Reason Comments Medication Refill Encounter Details Date Type Department Care Team ([facility] st Contact Info) Description 05/02/2021 Refill [facility] Practice [address] [place] [address] Cody Simms PA [address] [place] [address] Medication Refill Social History Tobacco Use Types [...] on filedocumented in this encounter Care Teams Anchorer Relationship Specialty Start Date End Date Cody Simms PA [address] [place] [address] PCP - General Physician Parachute Line Tier 10/24/18 03/10/22 documented as of this encounter
--- OUTSIDE RECORDS SUMMARY | 2024-08-26 09:51 | XMS_ITS | Encounter Summary ---
Author Organization [facility] Address [address] [place] [address] Care Team Providers Care Corrective And Manual Arts Therapist Name Role Phone Cody Simms Primary Care Provider +1- [phone] Reason for Visit * Reason Comments Medication Refill Encounter Details Date Type Department Care Team (Late st Contact Info) Description 09/16/2020 Refill [facility] Family Practice [address] [place] [address] Cody Simms PA [address] [place] [address] Medication Refill Social History Tobacco [...] on filedocumented in this encounter Care Teams Corrective And Manual Arts Therapist Relationship Specialty Start Date End Date Cody Simms PA [address] [place] [address] PCP - General Physician Senior Trainer 10/24/18 03/10/22 documented as of this encounter
--- OUTSIDE RECORDS SUMMARY | 2024-08-26 09:51 | XMS_ITS | Encounter Summary ---
Author Organization [facility] Address [address] [place] [address] Care Team Providers Care Proofer Name Role Phone Cody Simms Primary Care Provider +1- [phone] Reason for Visit * Reason Comments Medication Refill Encounter Details Date Type Department Care Team ([facility] st Contact Info) Description 04/19/2020 Refill [facility] Family Practice [address] [place] [address] Cody Simms PA [address] [place] [address] Medication Refill Social History Tobacco Use Types [...] hypofunction documented in this encounter Care Teams Proofer Relationship Specialty Start Date End Date Cody Simms PA [address] [place] [address] PCP - General Physician Sales Representative Facility Services 10/24/18 03/10/22 documented as of this encounter
--- OUTSIDE RECORDS SUMMARY | 2024-08-26 09:51 | XMS_ITS | Encounter Summary ---
Author Organization [facility] Address [address] [place] [address] Care Team Providers Care Road Boss Name Role Phone Cody Simms Primary Care Provider +1 [phone] Reason for Referral * Referral (Routine) - Closed Specialty Diagnoses / Procedures Referred By Contac t Referred To Contact Diagnoses Obstructive sleep apnea Cody Simms PA [address] [place] [address] [facility] [address] [place] [address] Referral ID Status Reason Start Date Expiration Date V isits Requested Visits Authorized [id number] Closed Consult 11/28/2020 1 1 Question Answer Symptoms reported or observed Witnessed apneas, Snoring, Excessive daytime sleepiness Comments Had home study that suggested a cpap trial in the sleep lab please Encounter Details Date Type Department Care Team (Late st Contact Info) Description 11/28/2020 Orders Only [facility] Practice [address] [place] [address] Cody Simms PA [address] [place] [address] Obstructive sleep apnea (Primary Dx) [...] COVID-19? No / Unsure 11/06/2020 3:41 PM CONTAINER FINISHER documented as of this encounter Plan of [...] (pediatric) documented in this encounter Care Teams Road Boss Relationship Specialty Start Date End Date Cody Simms PA [address] [place] [address] PCP - General Physician Twister Hand 10/24/18 03/10/22 documented as of this encounter
--- OUTSIDE RECORDS SUMMARY | 2024-08-26 09:51 | XMS_ITS | Encounter Summary ---
Author Organization [facility] Address [address] [place] [address] Care Team Providers Care Civil Cad Tech Name Role Phone Cody Simms Primary Care Provider +1- [phone] Encounter Details Date Type Department Care Team (Latest Contact Info) Description 04/25/2020 3:15 PM CDT - 04/25/2020 11:59 PM CDT Hospital Encounter [facility] [address] [place] [address] Galen Jones, DO [address] [address] [place] [address] Acute pain of left knee [...] Nyasia Ferreira MD 04/25/2020 4:25 PM CDTWorkstation: [id number] Cody WORKMAN [facility] IM[facility] DIAG ORDERA BLES documented in this encounter Visit Diagnoses Diagnosis Acute pain of left knee documented in this encounter Care Teams Civil Cad Tech Relationship Specialty Start Date End Date Cody Simms PA [address] [place] [address] PCP - General Physician Web Worker 10/24/18 03/10/22 documented as of this encounter
--- OUTSIDE RECORDS SUMMARY | 2024-08-26 09:51 | XMS_ITS | Encounter Summary ---
Author Organization [facility] Address [address] [place] [address] Care Team Providers Care Parole Supervisor Name Role Phone Cody Simms Primary Care Provider +1- [phone] Reason for Visit * Reason Comments Medication Refill Pt here for medicati on refills on alprazolam at [facility], testosterone and clomiphene to [facility] in [place], [place] Encounter Details Date Type Department Care Team (Late st Contact Info) Description 05/05/2021 3:30 PM CDT Office Visit [facility] [address] [address] [place] [phone] Galen Jones, [address] [address] [place] [phone] Male hypogonadism (Primary Dx); IGGY (generalized anxiety [...] Body Mass Index 27.55 11/07/2020 2:26 PM DIRECTOR SUPPLY documented in this encounter Progress Notes * Galen Jones, - 05/05/2021 3:30 PM CDT Images from the original note were not included. OFFICE VISIT [facility] Medicine CHIEF COMPLAINT Medication Refill (Pt here for medication refills on alprazolam at [facility], testosterone and clomiphene to [facility] in [place], [place]) HPI John Veliz is a 50 [...] PCP in June or sooner as needed. [facility] 05/05/2021 4:02 PM documented in this encounter Plan of Treatment Not on file documented as of this encounter Visit Diagnoses Diagnosis Male hypogonadism- Primary Other testicular hypofunction IGGY (generalized anxiety disorder) Generalized anxiety disorder documented in this encounter Care Teams Parole Supervisor Relationship Specialty Start Date End Date Cody Simms PA [address] [place] [address] PCP - General Physician Grinder Set Up Operator Thread Tool 10/24/18 03/10/22 documented as of this encounter
--- OUTSIDE RECORDS SUMMARY | 2024-08-26 09:51 | XMS_ITS | Encounter Summary ---
Author Organization [facility] Address [address] [place] [address] Care Team Providers Care School Teacher Name Role Phone Cody Simms Primary Care Provider +1- [phone] Encounter Details Date Type Department Care Team (Late st Contact Info) Description 03/04/2021 Orders Only [facility] Practice [address] [place] [address] Cody Simms PA [facility] [place] [address] Obstructive sleep apnea (Primary Dx) [...] (pediatric) documented in this encounter Care Teams School Teacher Relationship Specialty Start Date End Date Cody Simms PA [address] [place] [address] PCP - General Physician University Dean 10/24/18 03/10/22 documented as of this encounter
--- OUTSIDE RECORDS SUMMARY | 2024-08-26 09:51 | XMS_ITS | Encounter Summary ---
Author Organization [facility] Address [address] [place] [address] Care Team Providers Care Office Services Manager Name Role Phone Cody Simms Primary Care Provider +1- [phone] Reason for Visit * Reason Comments Medication Refill Encounter Details Date Type Department Care Team (Late st Contact Info) Description 06/21/2020 Refill [facility] Family Practice [address] [place] [address] Cody Simms PA [address] [place] [address] Medication Refill Social History [...] filedocumented in this encounter Care Teams Office Services Manager Relationship Specialty [place] [address] [place] [address] PCP - General Physician Sales Rep 10/24/18 03/10/22 documented as of this encounter
--- OUTSIDE RECORDS SUMMARY | 2024-08-26 09:51 | XMS_ITS | Encounter Summary ---
Author Organization [facility] Address [address] [place] [address] Care Team Providers Care Sales Administration Manager Name Role Phone Cody Simms Primary Care Provider +1- [phone] Reason for Visit * Reason Comments Knee Pain last few months left knee is hurting taking IBU for the pain Other Sleep study Encounter Details Date Type Department Care Team (Late st Contact Info) Description 04/25/2020 2:30 PM CDT Office Visit [facility] [address] [place] [address] Cody Simms PA [address] [place] [address] Snoring (Primary Dx); Acute pain [...] patient wishes to have that performed at [facility] will follow-up when the results are back [...] Sleep Center [facility] [phone] DISCHARGE MEDS: Outpatient Encounter Medications as of [...] Nyasia Ferreira MD 04/25/2020 4:25 PM CDTWorkstation: [id number] Cody WORKMAN [employer] IMG DIAG ORDERA BLES documented in this encounter Visit Diagnoses Diagnosis Snoring- Primary Other dyspnea and respiratory abnormality Acute pain of left knee Sleep disorder Sleep disturbance, unspecified Acute pain of left knee documented in this encounter Care Teams Sales Administration Manager Relationship Specialty Start Date End Date Cody Simms PA [address] [place] [address] PCP - General Physician Director Experimental Medicine 10/24/18 03/10/22 documented as of this encounter
--- OUTSIDE RECORDS SUMMARY | 2024-08-26 09:51 | XMS_ITS | Encounter Summary ---
Author Organization [facility] Address [address] [place] [address] Care Team Providers Care Water Safety Instructor Name Role Phone Cody Simms Primary Care Provider +1- [phone] Reason for Visit * Reason Comments Medication Refill Encounter Details Date Type Department Care Team ([facility] st Contact Info) Description 02/06/2020 Refill [facility] Family Practice [address] [place] [address] Cody Simms PA [address] [place] [address] Medication Refill Social History Tobacco Use Types [...] on filedocumented in this encounter Care Teams Water Safety Instructor Relationship Specialty Start Date End Date Cody Simms PA [address] [place] [address] PCP - General Physician Paper Tube Machine Operator 10/24/18 03/10/22 documented as of this encounter
--- OUTSIDE RECORDS SUMMARY | 2024-08-26 09:51 | XMS_ITS | Encounter Summary ---
Author Organization [facility] Address [address] [place] [address] Care Team Providers Care Wire Spring Relay Adjuster Name Role Phone Cody Simms Primary Care Provider +1- [phone] Reason for Visit * Reason Comments Medication Refill Encounter Details Date Type Department Care Team ([facility] st Contact Info) Description 10/06/2019 Refill [facility] Family Practice [address] [place] [address] Cody Simms PA [address] [place] [address] Medication Refill Social History Tobacco Use Types [...] on filedocumented in this encounter Care Teams Wire Spring Relay Adjuster Relationship Specialty Start Date End Date Cody Simms PA [address] [place] [address] PCP - General Physician Carrot Buncher 10/24/18 03/10/22 documented as of this encounter
--- OUTSIDE RECORDS SUMMARY | 2024-08-26 09:51 | XMS_ITS | Encounter Summary ---
Author Organization [facility] Address [address] [place] [address] Care Team Providers Care Casing Material Weigher Name Role Phone Cody Simms Primary Care Provider +1- [phone] Reason for Visit * Reason Comments Medication Refill Encounter Details Date Type Department Care Team ([facility] st Contact Info) Description 09/04/2020 Refill [facility] Family Practice [address] [place] [address] Cody Simms PA [address] [place] [address] Medication Refill Social History Tobacco Use Types [...] on filedocumented in this encounter Care Teams Casing Material Weigher Relationship Specialty Start Date End Date Cody Simms PA [address] [place] [address] PCP - General Physician Stull Installer 10/24/18 03/10/22 documented as of this encounter
--- OUTSIDE RECORDS SUMMARY | 2024-08-26 09:51 | XMS_ITS | Encounter Summary ---
Author Organization [facility] Address [address] [place] [address] Care Team Providers Care Anatomy And Physiology Instructor Name Role Phone Cody Simms Primary Care Provider +1- [phone] Encounter Details Date Type Department Care Team (Late st Contact Info) Description 09/09/2019 9:00 AM HAT CLEANER Lab/X-Ray Only [facility] Lab [address] [place] [address] Cody Simms PA [address] [place], [place] [id number] Endocrine disorder (Primary Dx); Dyslipidemia; Hypotestosteronemia Social [...] FREE/TOT ADULT MALE Routine 09/09/2019 8:41 AM HAT CLEANER Dyslipidemia Hypotestosteronemi a Endocrine disorder ESTRADIOL Routine 09/09/2019 8:41 AM HAT CLEANER Dyslipidemia Hypotestosteronemi a Endocrine disorder CBC W AUTO DIFF Routine 09/09/2019 8:41 AM HAT CLEANER Hypotestosteronemi a LIPID PROFILE Routine 09/09/2019 8:41 AM HAT CLEANER Dyslipidemia COMPREHENSIVE METABOLIC PANEL Routine 09/09/2019 8:41 AM HAT CLEANER Hypotestosteronemi a documented in this encounter Results * ESTRADIOL (09/09/2019 8:41 AM HAT CLEANER) Estradiol Level 30 pg/mL [facility] Comment: (NOTE) Test was ordered on a male or a child <18 years old. Suggest ordering Tandem Mass Spectrometry for Estradiol, Males or Children, Test Code [id number]. INTERPRETIVE INFORMATION: Estradiol, Adult Premenopausal ? Female Early Follicular Phase..22-115 pg/mL Mid Follicular Phase....25-115 pg/mL Ovulatory Peak Phase....32-517 pg/mL Mid Luteal Phase........37-246 pg/mL Post-menopausal...less than 25 pg/mL Performed by [facility], [address] [place] [address] www.[employer] Da Fleming MD, Lab. Director Blood 09/09/2019 8:41 AM HAT CLEANER 09/09/2019 8:43 AM HAT CLEANER Cody WORKMAN CHEMISTRY ORDERABLE S [facility] [address] [place] [address], [facility] * TESTOS FREE/TOT ADULT MALE (09/09/2019 8:41 AM HAT CLEANER) Total Testosterone 456 300 - 890 ng/dL [facility] Comment: (NOTE) REFERENCE INTERVAL: Testosterone, Adult Male Access complete set of age- and/or gender-specific reference intervals for this test in the [facility] ([employer] Testosterone Free 84 47 - 244 pg/mL [facility] Comment: (NOTE) INTERPRETIVE INFORMATION: ??Testosterone, Free Joel Stage IV ?35 - 169 pg/mL Joel Stage V ? 41 - 239 pg/mL The concentration of Free Testosterone is derived from a mathematical expression based on the constant for the binding of testosterone to Sex Hormone Binding Globulin (SHBG). Access complete set of age- and/or gender-specific reference intervals for this test in the [facility] ([employer] Sex Hormone Binding Globulin 34 (NOTE) REFERENCE INTERVAL: Sex Hormone Binding Globulin Access complete set of age- and/or gender-specif ic reference ??intervals for this test in the [facility] ?? ([employer] . 11 - 80 nmol/L [facility] Testosterone Free Percent 1.8 1.6 - 2.9 % [facility] Comment: (NOTE) Performed by [facility], [address] [place] [id number] www.[employer] Da Fleming MD, Lab. Director Blood 09/09/2019 8:41 AM HAT CLEANER 09/09/2019 8:43 AM HAT CLEANER Cody WORKMAN LAB SEND OUT ORDERA BLES [facility] [address] * (ABNORMAL) CBC W AUTO DIFF (09/09/2019 8:41 AM HAT CLEANER) Pathologist [facility] [place] White Blood Cell Count 6.4 4.8 - 9.6 THOUS/uL [facility] Red Blood Cell Count 5.25 4.33 - 5.59 MIL/uL [facility] Hemoglobin 15.4 13.1 - 16.8 GM/DL [facility] Hematocrit 47.2 38.8 - 49.0 % [facility] Mean Corpuscular Volume 89.9 82.7 - 94.4 [facility] Mean Corpuscular Hemoglobin 29.3 27.7 - 32.6 PG [facility] Mean Corpuscular Hemoglobin Conc 32.6 32.4 - 35.7 G/DL [facility] Rdwcv 12.8 11.6 - 13.9 % [facility] Rdwsd 42.3 36.0 - 46.1 [facility] Platelet Count 253 154 - 364 THOUS/uL [facility] Mean Platelet Volume 10.1 8.7 - 11.7 [facility] Nucleated Red Blood Cells 0.0 0.0 /100 WBC'S [facility] Abs NRBC 0.0 0.0 THOUS/uL [facility] Differential Type AUTO FE [facility] Neutrophils 61.5 34.0 - 67.9 % [facility] Lymphs 23.5 19.1 - 41.2 % [facility] Monocytes 11.2 6.1 - 12.3 % [facility] Eos 1.9 0.9 - 7.6 % [facility] Basos 0.8 0.2 - 1.5 % [facility] Neutrophils Absolute Count 4.0 2.7 - 5.8 THOUS/uL [facility] Lymphocytes Absolute Count 1.5 1.1 - 3.3 THOUS/uL [facility] Monocytes Absolute Count 0.7 0.4 - 0.9 THOUS/uL [facility] Eosinophils Absolute Count 0.1 0.1 - 0.6 THOUS/uL [facility] Basophils Absolute Count 0.1 0.0 - 0.1 THOUS/uL [facility] Imm Gran 1.1(H) 0.2 - 0.9 % [facility] Abs Imm Gran 0.07 0.0 - 0.1 THOUS/uL [facility] Blood 09/09/2019 8:41 AM HAT CLEANER 09/09/2019 8:43 AM HAT CLEANER Cody WORKMAN HEMATOLOGY ORDERABL ES Performing Organization Address [facility] Co de Phone Number [facility] [address] [place] [place] [id number] * (ABNORMAL) COMPREHENSIVE METABOLIC PANEL (09/09/2019 8:41 AM HAT CLEANER) Glucose 105(H) 65 - 100 MG/DL [facility] Blood Urea Nitrogen 20(H) 7 - 18 MG/DL [facility] Creatinine 1.4(H) 0.7 - 1.3 MG/DL [facility] Sodium 135(L) 136 - 145 MMOL/L [facility] Potassium 3.9 3.5 - 5.1 MMOL/L [facility] Chloride 100 98 - 107 MMOL/L [facility] Co2 31 21 - 32 MMOL/L [facility] Calcium 8.5 8.5 - 10.1 MG/DL [facility] Osmolality 273 273 - 304 mOsm/L [facility] Protein Total 6.8 6.4 - 8.2 G/DL [facility] Albumin 3.5 3.4 - 5.0 G/DL [facility] A/G Ratio 1.1 0.8 - 2.0 [facility] Alkaline Phosphatase 60 46 - 116 U/L [facility] Alt (SGPT) 44 16 - 63 U/L [facility] AST(SGOT) 20 15 - 37 U/L [facility] Bilirubin, Total 0.6 0.2 - 1.0 MG/DL [facility] Est GFR 54(L) >60 ML/MIN/1. 73sq.m [facility] GFR Comment IF PATIENT IS , MULTIPLY RESULT BY 1.21 [facility] Blood 09/09/2019 8:41 AM HAT CLEANER 09/09/2019 8:43 AM HAT CLEANER Cody WORKMAN CHEMISTRY ORDERABLE S [facility] [address] [place] [address] * (ABNORMAL) LIPID PROFILE (09/09/2019 8:41 AM HAT CLEANER) Cholesterol 199 0 - 200 MG/DL [facility] Triglycerides 208(H) 0 - 150 MG/DL [facility] HDL 29(L) 40 - 60 MG/DL [facility] LDL Cholesterol 128(H) 0 - 100 MG/DL [facility] LDL/HDL Ratio 4.41 [facility] VLDL, Calc 42(H) 0 - 35 MG/DL [facility] Time Wine Blood 09/09/2019 8:41 AM HAT CLEANER 09/09/2019 8:43 AM HAT CLEANER Cody WORKMAN CHEMISTRY ORDERABLE S Performing Organization Address [facility] Co de Phone Number [facility] [address] [place] [address] documented in this encounter Visit Diagnoses Diagnosis Endocrine disorder- Primary Unspecified endocrine disorder Dyslipidemia Other and unspecified hyperlipidemia Hypotestosteronemia documented in this encounter Care Teams Anatomy And Physiology Instructor Relationship Specialty Start Date End Date Cody Simms PA [address] [place] [address] PCP - General Physician Malted Milk Supervisor 10/24/18 03/10/22 documented as of this encounter
--- OUTSIDE RECORDS SUMMARY | 2024-08-26 09:51 | XMS_ITS | Encounter Summary ---
Author Organization [facility] Address [address] [place] [address] Care Team Providers Care Product Operations Associate Name Role Phone Cody Simms Primary Care Provider +1- [phone] Reason for Visit * Reason Comments Medication Refill Encounter Details Date Type Department Care Team ([facility] st Contact Info) Description 12/29/[address] [facility] [address] [place] [address] Cody Simms PA [address] [place], [place] [address] Medication Refill Social History Tobacco Use Types [...] on filedocumented in this encounter Care Teams Product Operations Associate Relationship Specialty Start Date End Date Cody Simms PA [address] [place] [address] PCP - General Physician Colorer Hides And Skins 10/24/18 03/10/22 documented as of this encounter
--- OUTSIDE RECORDS SUMMARY | 2024-08-26 09:51 | XMS_ITS | Encounter Summary ---
Author Organization [facility] Address [address] [place] [address] Care Team Providers Care Hand Heel Seat Fitter Name Role Phone Cody Simms Primary Care Provider +1- [phone] Encounter Details Date Type Department Care Team (Late st Contact Info) Description 10/11/2020 8:50 AM CALL CENTER PROFESSIONAL Lab/X-Ray Only [facility] [address] [place] [address] Frankie Morales MD [address] [place] [address] Galen Jones, DO [address] [place] [id number] Testosterone deficiency; Long-term current use of testosterone [...] COVID-19? No / Unsure 10/11/2020 8:40 AM CALL CENTER PROFESSIONAL documented as of this encounter Plan of Treatment Not on file documented as of this encounter Procedures Procedure Name Priority Date/Time Associated Diagnosis Comments PSA TOTAL, SCREEN Routine 10/11/2020 8:4 2 AM CALL CENTER PROFESSIONAL Long-term current use of testosterone replacement therapy TESTOS FREE/TOT ADULT MALE Routine 10/11/2020 8:42 AM CALL CENTER PROFESSIONAL Testosterone deficiency Long-term current use of testosterone replacement therapy BASIC METABOLIC PANEL (CHEM8) Routine 10/11/2020 8:42 AM CALL CENTER PROFESSIONAL Decreased GFR documented in this encounter Results * PSA SCREEN (10/11/2020 8:42 AM CALL CENTER PROFESSIONAL) Prostate Specific Antigen Total 0.55 0.00 - 4.00 NG/ML [facility] PSA Comment SEE NOTES [facility] Comment: Dimension EXL 200 methodology is a one-step enzyme immunoassay based on the sandwhich principle. ??The concentration of PSA in a given specimen determined with assays from different manufacturers can vary due to differences in assay methods and reagent specificity. Values obtained with different assay methods cannot be used interchangeably. Blood 10/11/2020 8:42 AM CALL CENTER PROFESSIONAL 10/11/2020 8:44 AM CALL CENTER PROFESSIONAL Cody WORKMAN CHEMISTRY ORDERABLE S Performing Organization Address City/State/[facility] Co de Phone Number [facility] [address] [place] [address] * (ABNORMAL) BASIC METABOLIC PANEL (CHEM8) (10/11/2020 8:42 AM CALL CENTER PROFESSIONAL) Glucose 89 65 - 100 MG/DL [facility] Blood Urea Nitrogen 14 7 - 18 MG/DL [facility] Creatinine 1.3 0.7 - 1.3 MG/DL [facility] Sodium 136 136 - 145 MMOL/L [facility] Potassium 4.0 3.5 - 5.1 MMOL/L [facility] Chloride 98 98 - 107 MMOL/L [facility] Co2 31 21 - 32 MMOL/L [facility] Calcium 8.6 8.5 - 10.1 MG/DL [facility] GFR Comment IF PATIENT IS , MULTIPLY RESULT BY 1.16 [facility] Est GFR 65(L) >90 ML/MIN/1. 73sq.m [facility] Blood 10/11/2020 8:42 AM CALL CENTER PROFESSIONAL 10/11/2020 8:44 AM CALL CENTER PROFESSIONAL Cody WORKMAN CHEMISTRY ORDERABLE S Performing Organization Address City/State/[facility] Co de Phone Number [facility] [address] * TESTOS FREE/TOT ADULT MALE (10/11/2020 8:42 AM CALL CENTER PROFESSIONAL) Pathologist [facility] Total Testosterone 641 300 - 890 ng/dL [facility] Comment: (NOTE) REFERENCE INTERVAL: Testosterone, Adult Male Access complete set of age- and/or gender-specific reference intervals for this test in the [facility] Directory ([employer]). Testosterone Free 151 47 - 244 pg/mL [facility] Comment: (NOTE) INTERPRETIVE INFORMATION: ??Testosterone, Free Joel Stage IV ?35 - 169 pg/mL Joel Stage V ? 41 - 239 pg/mL The concentration of Free Testosterone is derived from a mathematical expression based on the constant for the binding of testosterone to Sex Hormone Binding Globulin (SHBG). Access complete set of age- and/or gender-specific reference intervals for this test in the [facility] Directory ([employer]). Sex Hormone Binding Globulin 22 (NOTE) REFERENCE INTERVAL: Sex Hormone Binding Globulin Access complete set of age- and/or gender-specif ic reference ??intervals for this test in the [facility] Directory ?? ([employer]) . 11 - 80 nmol/L [facility] Testosterone Free Percent 2.4 1.6 - 2.9 % [facility] Comment: (NOTE) Performed By: [facility] [address] [place] [address] Canal Equipment Mechanic: Kacy Lewis MD Blood 10/11/2020 8:42 AM CALL CENTER PROFESSIONAL 10/11/2020 8:44 AM CALL CENTER PROFESSIONAL Cody WORKMAN LAB SEND OUT ORDERA BLES [facility] [address] [place] [address], [facility] documented in this encounter Visit Diagnoses Diagnosis Testosterone deficiency Other testicular hypofunction Long-term current use of testosterone replacement therapy Decreased GFR Nonspecific abnormal results of kidney function study documented in this encounter Care Teams Hand Heel Seat Fitter Relationship Specialty Start Date End Date Cody Simms PA [address] [place] [address] PCP - General Physician Operating Room Technologist 10/24/18 03/10/22 documented as of this encounter
--- OUTSIDE RECORDS SUMMARY | 2024-08-26 09:51 | XMS_ITS | Encounter Summary ---
Author Organization [facility] Address [address] [place] [address] Care Team Providers Care Elevator Constructor Supervisor Name Role Phone Cody Simms Primary Care Provider +1- [phone] Reason for Visit * Reason Onset Date Comments Medication Refill Medication Refill 04/22/2021 Encounter Details Date Type Department Care Team (Late st Contact Info) Description 03/06/2021 Refill [facility] [address] [place] [address] Cody Simms PA [address] [place] [address] Medication Refill; Medication Refill Social [...] on filedocumented in this encounter Care Teams Elevator Constructor Supervisor Relationship Specialty [place] [address] [place] [address] PCP - General Physician Syrup Mixer Helper 10/24/18 03/10/22 documented as of this encounter
--- OUTSIDE RECORDS SUMMARY | 2024-08-26 09:51 | XMS_ITS | Encounter Summary ---
Author Organization [facility] Address [address] [place] [address] Care Team Providers Care Assistant Import Manager Name Role Phone Cody Simms Primary Care Provider +1- [phone] Reason for Visit * Reason Onset Date Comments Medication Management 04/22/2021 Encounter Details Date Type Department Care Team (Late st Contact Info) Description 04/22/2021 [facility] [address] [place] [address] Cody Simms PA [address] [place] [address] Medication Management Social History Tobacco [...] appointment scheduled. * Telephone Encounter - Galen Jones DO - 04/29/2021 9:57 AM CDT Patient [...] on filedocumented in this encounter Care Teams Assistant Import Manager Relationship Specialty Start Date End Date Cody Simms PA [address] [place] [address] PCP - General Physician Fire Engine Operator 10/24/18 03/10/22 documented as of this encounter
--- OUTSIDE RECORDS SUMMARY | 2024-08-26 09:51 | XMS_ITS | Encounter Summary ---
Author Organization [facility] Address [address] [place] [address] Care Team Providers Care Liquid Center Assembler Name Role Phone Cody Simms Primary Care Provider +[phone] Reason for Visit * Reason Comments Dizziness onset last 2-3 month s blood pressure is reported normal at home on his BP cuff has had in the past but this feels different. Encounter Details Date Type Department Care Team (Late st Contact Info) Description 11/07/2020 2:00 PM LOOM CHANGER Office Visit [facility] [address] [place] [address] Cody Simms PA [address] [place] [address] Dysfunction of Eustachian tube, unspecified [...] COVID-19? No / Unsure 11/06/2020 3:41 PM LOOM CHANGER documented as of this encounter Last Filed Vital Signs Vital Sign Reading Time Taken Comments Blood Pressure 138/82 11/07/2020 2:26 PM LOOM CHANGER Pulse 87 11/07/2020 2:26 PM LOOM CHANGER Temperature 37.2 ??C (98.9 ??F) 11/07/2020 2:26 PM CS T Respiratory Rate 18 11/07/2020 2:26 PM LOOM CHANGER Oxygen Saturation 97% 11/07/2020 2:26 PM LOOM CHANGER Inhaled Oxygen Concentration - - Weight 88 kg (194 lb) 11/07/2020 2:26 PM LOOM CHANGER Height 177.8 cm (5' 10 ) 11/07/2020 2:26 PM LOOM CHANGER Body Mass Index 27.84 11/07/2020 2:26 PM LOOM CHANGER documented in this encounter Progress Notes * [...] allergies listed in the above medical record CHANGER documented in this encounter Plan of Treatment Not on file documented as of this encounter Visit Diagnoses Diagnosis Dysfunction of Eustachian tube, unspecified laterality- Primary Dyslipidemia Other and unspecified hyperlipidemia Testosterone deficiency Other testicular hypofunction documented in this encounter Care Teams Liquid Center Assembler Relationship Specialty Start Date End Date Cody Simms PA [address] [place] [address] PCP - General Physician Evaporator Supervisor 10/24/18 03/10/22 documented as of this encounter
--- OUTSIDE RECORDS SUMMARY | 2024-08-26 09:51 | XMS_ITS | Encounter Summary ---
Author Organization [facility] Address [address] [place] [address] Care Team Providers Care Armored Truck Driver Name Role Phone Cody Simms Primary Care Provider [phone]- [phone] Reason for Visit * Reason Onset Date Comments Prior Authorization Renewal 01/03/2021 cpap trial Encounter Details Date Type Department Care Team (Late st Contact Info) Description 01/03/2021 Telephone [facility] [address] [place] [address] Cody Simms PA [address] [place] [address] Prior Authorization Renewal (cpap trial) [...] AM CDT Scheduled for cpap trail at [facility] sleep lab 02/13/2021 * Telephone Encounter - Zuleyka Ritter LPN - 01/03/2021 9:19 AM CDT Spoke with Anita at [facility] for cpt [id number] cpap trial pending auth [id number] clinicals faxed to [phone] documented in this encounter Plan of Treatment Not on file documented as of this encounter Visit Diagnoses Not on filedocumented in this encounter Care Teams Armored Truck Driver Relationship Specialty Start Date End Date Cody Simms PA [address] [place] [address] PCP - General Physician Negative Turner Apprentice 10/24/18 03/10/22 documented as of this encounter
--- OUTSIDE RECORDS SUMMARY | 2024-08-26 09:51 | XMS_ITS | Encounter Summary ---
Author Organization [facility] Address [address] [place] [address] Care Team Providers Care Prosthetist Name Role Phone Cody Simms Primary Care Provider +1- [phone] Reason for Visit * Reason Comments Medication Refill Encounter Details Date Type Department Care Team (Late st Contact Info) Description 12/13/2020 Refill [facility] [address] [place] [address] Cody Simms PA [address] [place] [address] Medication Refill Social History Tobacco [...] on filedocumented in this encounter Care Teams Prosthetist Relationship Specialty Start Date End Date Cody Simms PA [address] [place] [address] PCP - General Physician Store Shopper 10/24/18 03/10/22 documented as of this encounter
--- OUTSIDE RECORDS SUMMARY | 2024-08-26 09:51 | XMS_ITS | Encounter Summary ---
Author Organization [facility] Address [address] [place] [address] Care Team Providers Care Camp Assistant Name Role Phone Cody Simms Primary Care Provider +1 [phone] Reason for Visit * Reason Comments Follow-up labs Encounter Details Date Type Department Care Team (Late st Contact Info) Description 09/15/2019 2:30 PM AUTO MECHANICS INSTRUCTOR Office Visit [facility] [address] [place] [address] Cody Simms PA [address] [place] [address] Dyslipidemia (Primary Dx); Long-term current [...] Comments Blood Pressure 148/80 09/15/2019 2:34 PM AUTO MECHANICS INSTRUCTOR Pulse 80 09/15/2019 2:34 PM AUTO MECHANICS INSTRUCTOR Temperature 36.8 ??C (98.3 ??F) 09/15/2019 2:34 PM CS T Respiratory Rate 20 09/15/2019 2:34 PM AUTO MECHANICS INSTRUCTOR Oxygen Saturation 98% 09/15/2019 2:34 PM AUTO MECHANICS INSTRUCTOR Inhaled Oxygen Concentration - - Weight 88.9 kg (196 lb) 09/15/2019 2:34 PM AUTO MECHANICS INSTRUCTOR Height 177.8 cm (5' 10 ) 09/15/2019 2:34 PM AUTO MECHANICS INSTRUCTOR Body Mass Index 28.12 09/15/2019 2:34 PM AUTO MECHANICS INSTRUCTOR documented in this encounter Progress Notes * [...] going to make diet changes I did intake counselor him on this. Follow-up 3 months. [...] allergies listed in the above medical record MECHANICS INSTRUCTOR documented in this encounter Plan of Treatment Not on file documented as of this encounter Results * (ABNORMAL) COMPREHENSIVE METABOLIC PANEL (12/30/2019 8:36 AM CDT) Glucose 105(H) 65 - 100 MG/DL [facility] Blood Urea Nitrogen 22(H) 7 - 18 MG/DL [facility] Creatinine 1.5(H) 0.7 - 1.3 MG/DL [facility] Sodium 141 136 - 145 MMOL/L [facility] Potassium 4.3 3.5 - 5.1 MMOL/L [facility] Chloride 103 98 - 107 MMOL/L [facility] Co2 32 21 - 32 MMOL/L [facility] Calcium 8.6 8.5 - 10.1 MG/DL [facility] Osmolality 285 273 - 304 mOsm/L [facility] Protein Total 7.1 6.4 - 8.2 G/DL [facility] Albumin 3.6 3.4 - 5.0 G/DL [facility] A/G Ratio 1.0 0.8 - 2.0 [facility] Alkaline Phosphatase 66 46 - 116 U/L [facility] Alt (SGPT) 46 16 - 63 U/L [facility] AST(SGOT) 26 15 - 37 U/L [facility] Bilirubin, Total 0.8 0.2 - 1.0 MG/DL [facility] GFR Comment IF PATIENT IS , MULTIPLY RESULT BY 1.16 [facility] Est GFR 55(L) >90 ML/MIN/1. 73sq.m [facility] Blood 12/30/2019 8:36 AM CDT 12/30/2019 8:38 AM CDT Cody WORKMAN CHEMISTRY ORDERABLE S [facility] [address] * TESTOS FREE/TOT ADULT MALE (12/30/2019 8:36 AM CDT) Total Testosterone 487 300 - 890 ng/dL [facility] Comment: (NOTE) REFERENCE INTERVAL: Testosterone, Adult Male Access complete set of age- and/or gender-specific reference intervals for this test in the [facility] Directory ([employer]). Testosterone Free 102 47 - 244 pg/mL [facility] Comment: (NOTE) INTERPRETIVE INFORMATION: ??Testosterone, Free Joel Stage IV ?35 - 169 pg/mL Joel Stage V ? 41 - 239 pg/mL The concentration of Free Testosterone is derived from a mathematical expression based on the constant for the binding of testosterone to Sex Hormone Binding Globulin (SHBG). Access complete set of age- and/or gender-specific reference intervals for this test in the [facility] ([employer]). Sex Hormone Binding Globulin 27 (NOTE) REFERENCE INTERVAL: Sex Hormone Binding Globulin Access complete set of age- and/or gender-specif ic reference ??intervals for this test in the [facility] ?? ([employer]) . 11 - 80 nmol/L [facility] Testosterone Free Percent 2.1 1.6 - 2.9 % [facility] Comment: (NOTE) Performed by [facility], [address] [place] [address] [email or web address], Da Fleming MD, Lab. Director Blood 12/30/2019 8:36 AM CDT 12/30/2019 8:38 AM CDT Cody WORKMAN LAB SEND OUT ORDERA BLES Performing Organization Address City/[facility] de Phone Number [facility] [address] [place] [address], [facility] * (ABNORMAL) LIPID PROFILE (12/30/2019 8:36 AM CDT) Cholesterol 213(H) 0 - 200 MG/DL [facility] Triglycerides 275(H) 0 - 150 MG/DL [facility] HDL 31(L) 40 - 60 MG/DL [facility] LDL Cholesterol 127(H) 0 - 100 MG/DL [facility] LDL/HDL Ratio 4.10 [facility] VLDL, Calc 55(H) 0 - 35 MG/DL [facility] Blood 12/30/2019 8:36 AM CDT 12/30/2019 8:38 AM CDT Cody WORKMAN CHEMISTRY ORDERABLE S Performing Organization Address City/[facility]/ZIP Co de Phone Number [facility] [address] [place] [address] documented in this encounter Visit Diagnoses Diagnosis Dyslipidemia- Primary Other and unspecified hyperlipidemia Long-term current use of testosterone replacement therapy Decreased GFR Nonspecific abnormal results of kidney function study documented in this encounter Care Teams Camp Assistant Relationship Specialty Start Date End Date Cody Simms PA [address] [place] [address] PCP - General Physician Smelter Charger 10/24/18 03/10/22 documented as of this encounter
--- OUTSIDE RECORDS SUMMARY | 2024-08-26 09:51 | XMS_ITS | Encounter Summary ---
Author Organization [facility] Address [address] [place] [address] Care Team Providers Care Staff Registered Nurse Name Role Phone Cody Simms Primary Care Provider +1- [phone] Reason for Referral * Referral (Routine) - Closed Specialty Diagnoses / Procedures Referred By Elieser t Referred To Contact Physical Therapy Diagnoses Left knee pain, unspecified chronicity Cody Simms PA [address] [place] [address] [facility] [address] [place] [address] Referral ID Status Reason Start Date Expiration Date Visits Re quested Visits Authorized [id number] Closed 05/02/2020 1 1 Question Answer Evaluate? Yes Develop Plan of Care? Yes Treatment? Yes Reason for Visit * Reason Comments Follow-up knee and sleep study Encounter Details Date Type Department Care Team (Late st Contact Info) Description 05/02/2020 2:30 PM CDT Office Visit [facility] [address] [place] [address] Cody Simms PA [address] [place], [place] [id number] Left knee pain, unspecified chronicity (Primary Dx); [...] laterality documented in this encounter Care Teams Staff Registered Nurse Relationship Specialty Start Date End Date Cody Simms PA [address] [place] [address] PCP - General Physician Cyber Transport Systems Specialist 10/24/18 03/10/22 documented as of this encounter
--- OUTSIDE RECORDS SUMMARY | 2024-08-26 09:51 | XMS_ITS | Encounter Summary ---
Author Organization [facility] Address [address] [place] [address] Care Team Providers Care Reservations Sales Supervisor Name Role Phone Cody Simms Primary Care Provider +1- [phone] Reason for Visit * Reason Comments Medication Refill Encounter Details Date Type Department Care Team (Late st Contact Info) Description 03/25/2020 Refill [facility] [address] [place] [phone] Cody Simms PA [address] [place], [place] [address] Medication Refill Social History Tobacco Use Types [...] on filedocumented in this encounter Care Teams Reservations Sales Supervisor Relationship Specialty Start Date End Date Cody Simms PA [address] [place] [id number] PCP - General Physician Management Professor 10/24/18 03/10/22 documented as of this encounter
--- OUTSIDE RECORDS SUMMARY | 2024-08-26 09:51 | XMS_ITS | Encounter Summary ---
Author Organization [facility] Address [address] [place] [address] Care Team Providers Care Interior Assemblies Installer Name Role Phone Cody Simms Primary Care Provider +1- [phone] Encounter Details Date Type Department Care Team (Late st Contact Info) Description 12/30/2019 8:20 AM CDT Lab/X-Ray Only [facility] [address] [place] [address] Galen Jones, DO [address] [place] [phone] Dyslipidemia; Long-term current use of testosterone replacement [...] CDT) Glucose 105(H) 65 - 100 MG/DL [facility] Blood Urea Nitrogen 22(H) 7 - 18 MG/DL [facility] Creatinine 1.5(H) 0.7 - 1.3 MG/DL [facility] Sodium 141 136 - 145 MMOL/L [facility] Potassium 4.3 3.5 - 5.1 MMOL/L [facility] Chloride 103 98 - 107 MMOL/L [facility] Co2 32 21 - 32 MMOL/L [facility] Calcium 8.6 8.5 - 10.1 MG/DL [facility] Osmolality 285 273 - 304 mOsm/L [facility] Protein Total 7.1 6.4 - 8.2 G/DL [facility] Albumin 3.6 3.4 - 5.0 G/DL [facility] A/G Ratio 1.0 0.8 - 2.0 [facility] Alkaline Phosphatase 66 46 - 116 U/L [facility] Alt (SGPT) 46 16 - 63 U/L [facility] AST(SGOT) 26 15 - 37 U/L [facility] Bilirubin, Total 0.8 0.2 - 1.0 MG/DL [facility] GFR Comment IF PATIENT IS , MULTIPLY RESULT BY 1.16 [facility] Est GFR 55(L) >90 ML/MIN/1. 73sq.m [facility] Blood 12/30/2019 8:36 AM CDT 12/30/2019 8:38 AM CDT Cody WORKMAN CHEMISTRY ORDERABLE S [facility] [address] * TESTOS FREE/TOT ADULT MALE (12/30/2019 8:36 AM CDT) Total Testosterone 487 300 - 890 ng/dL [facility] Comment: (NOTE) REFERENCE INTERVAL: Testosterone, Adult Male Access complete set of age- and/or gender-specific reference intervals for this test in the [facility] ([employer]). Testosterone Free 102 47 - 244 pg/mL [facility] Comment: (NOTE) INTERPRETIVE INFORMATION: ??Testosterone, Free Joel Stage IV ?35 - 169 pg/mL Joel Stage V ? 41 - 239 pg/mL The concentration of Free Testosterone is derived from a mathematical expression based on the constant for the binding of testosterone to Sex Hormone Binding Globulin (SHBG). Access complete set of age- and/or gender-specific reference intervals for this test in the [facility] ([employer]). Sex Hormone Binding Globulin 27 (NOTE) REFERENCE INTERVAL: Sex Hormone Binding Globulin Access complete set of age- and/or gender-specif ic reference ??intervals for this test in the [facility] ?? ([employer]) . 11 - 80 nmol/L [facility] Testosterone Free Percent 2.1 1.6 - 2.9 % [facility] Comment: (NOTE) Performed by [facility], [address] [place], [place] [id number] [email or web address], Da Fleming MD, Lab. Director Blood 12/30/2019 8:36 AM CDT 12/30/2019 8:38 AM CDT Cody WORKMAN LAB SEND OUT MALACHIA BLETyron [facility] [address] * (ABNORMAL) LIPID PROFILE (12/30/2019 8:36 AM CDT) Cholesterol 213(H) 0 - 200 MG/DL [facility] Triglycerides 275(H) 0 - 150 MG/DL [facility] HDL 31(L) 40 - 60 MG/DL [facility] LDL Cholesterol 127(H) 0 - 100 MG/DL [facility] LDL/HDL Ratio 4.10 [facility] VLDL, Calc 55(H) 0 - 35 MG/DL [facility] Blood 12/30/2019 8:36 AM CDT 12/30/2019 8:38 AM CDT Cody WORKMAN CHEMISTRY ORDERABLE S [facility] [address] documented in this encounter Visit Diagnoses Diagnosis Dyslipidemia Other and unspecified hyperlipidemia Long-term current use of testosterone replacement therapy Decreased GFR Nonspecific abnormal results of kidney function study documented in this encounter Care Teams Interior Assemblies Installer Relationship Specialty Start Date End Date Cody Simms PA [address] [place] [address] PCP - General Physician Metal Burrer 10/24/18 03/10/22 documented as of this encounter
--- OUTSIDE RECORDS SUMMARY | 2024-08-26 09:51 | XMS_ITS | Encounter Summary ---
Author Organization [facility] Address [address] [place] [address] Care Team Providers Care Container Washer Machine Name Role Phone Cody Simms Primary Care Provider +1- [phone] Reason for Visit * Reason Onset Date Comments Other 04/07/2021 Encounter Details Date Type Department Care Team (Late st Contact Info) Description 04/07/2021 Telephone [facility] [address] [place] [address] Cody Simms PA [address] [place] [address] Other Social History Tobacco Use [...] on filedocumented in this encounter Care Teams Container Washer Machine Relationship Specialty Start Date End Date Cody Simms PA [address] [place] [address] PCP - General Physician Print Project Manager 10/24/18 03/10/22 documented as of this encounter
--- OUTSIDE RECORDS SUMMARY | 2024-08-26 09:51 | XMS_ITS | Encounter Summary ---
Author Organization [facility] Address [address] [place] [address] Care Team Providers Care It Technical Support Specialist Name Role Phone Cody Simms Primary Care Provider +1- [phone] Reason for Visit * Reason Onset Date Comments Other 01/02/2021 Encounter Details Date Type Department Care Team (Late st Contact Info) Description 01/02/2021 Telephone [facility] [address] [place] [address] Cody Simms PA [address] [place] [address] Other Social History Tobacco Use [...] on filedocumented in this encounter Care Teams It Technical Support Specialist Relationship Specialty Start Date End Date Cody Simms PA [address] [place] [address] PCP - General Physician Copying Machine Mechanic 10/24/18 03/10/22 documented as of this encounter
--- OUTSIDE RECORDS SUMMARY | 2024-08-26 09:51 | XMS_ITS | Encounter Summary ---
Author Organization [facility] Address [address] [place] [address] Care Team Providers Care Design Transferrer Name Role Phone Cody Simms Primary Care Provider +1- [phone] Reason for Visit * Reason Onset Date Comments Other 11/25/2020 Follow-up 11/25/2020 sleep study. Encounter Details Date Type Department Care Team ([facility] st Contact Info) Description 11/25/2020 Telephone [facility] [address] [place] [address] Cody Simms PA [address] [place] [address] Other; Follow-up (sleep study.) Social [...] COVID-19? No / Unsure 11/06/2020 3:41 PM ASSESSMENT SPECIALIST documented as of this encounter Miscellaneous Notes * Telephone Encounter - Marycarmen Edouard LPN - 11/28/2020 3:05 PM CDT Patient contacted. * Telephone Encounter - Cody Simms - 11/28/2020 12:28 PM CDT Please let him know that I ordered it and they should be contacting him * Telephone Encounter - Marycarmen Edouard LPN - 11/26/2020 11:00 AM CDT Called [facility] to get the results of the sleep study. Notified patient that the results were in office and provider would be determining the next step and give patient a call ! * Telephone Encounter - Eugenie Reza LPN - 11/25/2020 1:50 PM CDT Pt called asking for provider to write an order for Sleep Study with C-Pap and have it faxed to: [facility] Respiratory [phone] ATTN: Marleni Please call pt back documented in this encounter Plan of Treatment Not on file documented as of this encounter Visit Diagnoses Not on filedocumented in this encounter Care Teams Design Transferrer Relationship Specialty Start Date End Date Cody Simms PA [address] [place] [address] PCP - General Physician Flagger 10/24/18 03/10/22 documented as of this encounter
--- OUTSIDE RECORDS SUMMARY | 2024-08-26 09:51 | XMS_ITS | Encounter Summary ---
Author Organization [facility] Address [address] [place] [address] Care Team Providers Care Glue Bone Crusher Name Role Phone Cody Simms Primary Care Provider +1 [phone] Reason for Visit * Reason Comments Dizziness been this way since december. gets dizzy at time sometime even when sitting. needs testosterone filled Encounter Details Date Type Department Care Team (Latest Contact Info) Description 02/06/2020 11:00 AM CDT Office Visit [facility] [address] [place] [address] Cody Simms PA [address] [place] [address] Testosterone insufficiency (Primary Dx); Vertigo [...] giddiness documented in this encounter Care Teams Glue Bone Crusher Relationship Specialty Start Date End Date Cody Simms PA [address] [place] [address] PCP - General Physician Collections Clerk 10/24/18 03/10/22 documented as of this encounter
--- OUTSIDE RECORDS SUMMARY | 2024-08-26 09:51 | XMS_ITS | Encounter Summary ---
Author Organization [facility] Address [address] [place] [address] Care Team Providers Care Adjunct Instructor In Economics Name Role Phone Cody Simms Primary Care Provider +1- [phone] Reason for Referral * Referral (Routine) - Closed Specialty Diagnoses / Procedures Referred By Contac t Referred To Contact Diagnoses Daytime sleepiness Snoring Cody Simms PA [address] [place] [address] [facility] [address] [place] [address] Referral ID Status Reason Start Date Expiration Date V isits Requested Visits Authorized [id number] Closed Consult 05/07/2020 06/05/2020 1 1 Question Answer Symptoms reported or observed Snoring Comments Neck circumference is 18 inches Patient requests sleep center at [facility] phone [phone] Encounter Details Date Type Department Care Team (Late st Contact Info) Description 05/02/2020 Orders Only [facility] [address] [place] [address] Cody Simms PA [address] [place] [address] Daytime sleepiness (Primary Dx); Snoring [...] abnormality documented in this encounter Care Teams Adjunct Instructor In Economics Relationship Specialty Start Date End Date Cody Simms PA [address] [place] [address] PCP - General Physician Box Feeder 10/24/18 03/10/22 documented as of this encounter
--- OUTSIDE RECORDS SUMMARY | 2024-08-26 09:51 | XMS_ITS | Encounter Summary ---
Author Organization [facility] Address [address] [place] [address] Care Team Providers Care Location Director Name Role Phone Cody Simms Primary Care Provider +1 [phone] Reason for Visit * Reason Onset Date Comments Medication Refill 01/21/2021 Encounter Details Date Type Department Care Team (Late st Contact Info) Description 01/21/2021 Refill [facility] [address] [place] [address] Cody Simms PA [address] [place] [address] Medication Refill Social History Tobacco [...] filedocumented in this encounter Care Teams Location Director Relationship Specialty Start Date End Date Cody Simms PA [address] [place] [address] PCP - General Physician Children'S Attendant 10/24/18 03/10/22 documented as of this encounter
--- OUTSIDE RECORDS SUMMARY | 2024-08-26 09:51 | XMS_ITS | Encounter Summary ---
Author Organization [facility] Address [address] [place] [address] Care Team Providers Care Tricot Knitting Machine Operator Name Role Phone Cody Simms Primary Care Provider +1- [phone] Reason for Visit * Reason Comments Medication Refill Encounter Details Date Type Department Care Team ([facility] st Contact Info) Description 08/07/2019 Refill [facility] [address] [place] [address] Cody Simms PA [address] [place] [address] Medication Refill Social History Tobacco Use Types [...] on filedocumented in this encounter Care Teams Tricot Knitting Machine Operator Relationship Specialty Start Date End Date Cody Simms PA [address] [place] [address] PCP - General Physician Cut Off Saw Operator Metal 10/24/18 03/10/22 documented as of this encounter
--- OUTSIDE RECORDS SUMMARY | 2024-08-26 09:51 | XMS_ITS | Encounter Summary ---
Author Organization [facility] Address [address] [place] [address] Care Team Providers Care Alteration Hand Name Role Phone Cody Simms Primary Care Provider +1 [phone] Reason for Visit * Reason Comments Follow-up pt is here for follo w up and is feeling good Encounter Details Date Type Department Care Team (Late st Contact Info) Description 01/05/2020 2:30 PM CDT Office Visit [facility] [address] [place] [address] Cody Simms PA [address] [place] [address] Testosterone deficiency (Primary Dx); Decreased [...] He does report that he is taking Dane 3 fish oil but he has only [...] hyperlipidemia documented in this encounter Care Teams Alteration Hand Relationship Specialty Start Date End Date Cody Simms PA [address] [place] [address] PCP - General Physician Risk Control Product Liability Director 10/24/18 03/10/22 documented as of this encounter
--- OUTSIDE RECORDS SUMMARY | 2024-08-26 09:51 | XMS_ITS | Encounter Summary ---
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 Be aware that this motor and controls tester may contain errors not detected by proofreading. documented in this encounter Plan of Treatment Not on file documented as of this encounter Visit Diagnoses Diagnosis IGGY (generalized anxiety disorder)- Primary Generalized anxiety disorder documented in this encounter Care Teams Shipping Manager Relationship Specialty Start Date End Date Cody Simms PA [address] [place] [address] PCP - General Physician Slice Plug Cutter Operator Helper 10/24/18 03/10/22 documented as of this encounter
--- OUTSIDE RECORDS SUMMARY | 2024-08-26 09:51 | XMS_ITS | Encounter Summary ---
Author Organization [facility] Address [address] [place] [address] Care Team Providers Care Shell Trim Operator Name Role Phone Cody Simms Primary Care Provider +1- [phone] Reason for Visit * Reason Onset Date Comments Other 06/25/2020 Encounter Details Date Type Department Care Team ([facility] st Contact Info) Description 06/25/2020 Telephone [facility] [address] [place] [address] Cody Simms PA [address] [place] [address] Other Social History Tobacco Use [...] COVID-19? No / Unsure 07/18/2020 9:21 AM HOSE MENDER documented as of this encounter Miscellaneous Notes * Telephone Encounter - Marycarmen Edouard LPN - 06/26/2020 8:17 AM CDT Form taken up front for patient to leaf size picker! * Telephone Encounter - Cody Simms [...] on filedocumented in this encounter Care Teams Shell Trim Operator Relationship Specialty Start Date End Date Cody Simms PA [address] [place] [address] PCP - General Physician [employer] Advanced Operator Maintainer 10/24/18 03/10/22 documented as of this encounter
--- OUTSIDE RECORDS SUMMARY | 2024-08-26 09:51 | XMS_ITS | Encounter Summary ---
Author Organization [facility] Address [address] [place] [address] Care Team Providers Care Recruiting Associate Name Role Phone Cody Simms Primary Care Provider +1- [phone] Reason for Visit * Reason Onset Date Comments Prior Authorization Renewal 09/19/2020 home sleep study Encounter Details Date Type Department Care Team (Late st Contact Info) Description 09/19/2020 Telephone [facility] [address] [place] [address] Cody Simms PA [address] [place] [address] Prior Authorization Renewal (home sleep [...] for home sleep study 10/08/2020 at 630 M[address]ER documented in this encounter Plan of Treatment Not on file documented as of this encounter Visit Diagnoses Not on filedocumented in this encounter Care Teams Recruiting Associate Relationship Specialty Start Date End Date Cody Simms PA [address] [place] [address] PCP - General Physician [employer] Director School 10/24/18 03/10/22 documented as of this encounter
--- OUTSIDE RECORDS SUMMARY | 2024-08-26 09:51 | XMS_ITS | Encounter Summary ---
Author Organization [facility] Address [address] [place] [address] Care Team Providers Care Emr Analyst Name Role Phone Cody Simms Primary Care Provider +1- [phone] Reason for Visit * Reason Comments Follow-up 6 months Knee Pain went to therapy xs 2 Encounter Details Date Type Department Care Team (Late st Contact Info) Description 07/19/2020 2:00 PM BEREAVEMENT COORDINATOR Office Visit [facility] [address] [place] [address] Cody Simms PA [address] [place] [address] Testosterone deficiency (Primary Dx); Long-term [...] COVID-19? No / Unsure 07/18/2020 9:21 AM BEREAVEMENT COORDINATOR documented as of this encounter Last Filed Vital Signs Vital Sign Reading Time Taken Comments Blood Pressure 162/98 07/19/2020 2:17 PM BEREAVEMENT COORDINATOR Pulse 81 07/19/2020 2:17 PM BEREAVEMENT COORDINATOR Temperature 36.8 ??C (98.2 ??F) 07/19/2020 2:17 PM CS T Respiratory Rate 20 07/19/2020 2:17 PM BEREAVEMENT COORDINATOR Oxygen Saturation 99% 07/19/2020 2:17 PM BEREAVEMENT COORDINATOR Inhaled Oxygen Concentration - - Weight 94.3 kg (208 lb) 07/19/2020 2:17 PM BEREAVEMENT COORDINATOR Height - - Body Mass Index 29.84 [...] allergies listed in the above medical record AVEMENT COORDINATOR documented in this encounter Plan of Treatment Not on file documented as of this encounter Results * TESTOS FREE/TOT ADULT MALE (07/19/2021 8:45 AM BEREAVEMENT COORDINATOR) Total Testosterone 343 300 - 890 ng/dL [facility] Comment: (NOTE) REFERENCE INTERVAL: Testosterone, Adult Male Access complete set of age- and/or gender-specific reference intervals for this test in the [facility] Test Directory (Lytro). Testosterone Free 67 47 - 244 pg/mL [facility] Comment: (NOTE) INTERPRETIVE INFORMATION: ??Testosterone, Free Joel Stage IV ?35 - 169 pg/mL Joel Stage V ? 41 - 239 pg/mL The concentration of Free Testosterone is derived from a mathematical expression based on the constant for the binding of testosterone to Sex Hormone Binding Globulin (SHBG). Access complete set of age- and/or gender-specific reference intervals for this test in the [facility] Test Directory (Lytro). Sex Hormone Binding Globulin 29 (NOTE) REFERENCE INTERVAL: Sex Hormone Binding Globulin Access complete set of age- and/or gender-specif ic reference ??intervals for this test in the [facility] Test Directory ?? (Lytro) . 11 - 80 nmol/L [facility] Testosterone Free Percent 1.9 1.6 - 2.9 % [facility] Comment: (NOTE) Performed By: better[facility] [address] [place] [address] Polishing Machine Tender: Kacy Lewis MD Blood 07/19/2021 8:45 AM BEREAVEMENT COORDINATOR 07/19/2021 8:47 AM BEREAVEMENT COORDINATOR Cody WORKMAN LAB SEND OUT MALACHIA MAGDALENA [facility] [address] * (ABNORMAL) LIPID PROFILE (07/19/2021 8:45 AM BEREAVEMENT COORDINATOR) Cholesterol 177 0 - 200 MG/DL [facility] Triglycerides 100 0 - 150 MG/DL [facility] HDL 41 40 - 60 MG/DL [facility] LDL Cholesterol 116(H) 0 - 100 MG/DL [facility] LDL/HDL Ratio 2.83 [facility] VLDL, Calc 20 0 - 35 MG/DL [facility] Blood 07/19/2021 8:45 AM BEREAVEMENT COORDINATOR 07/19/2021 8:47 AM BEREAVEMENT COORDINATOR Cody WORKMAN CHEMISTRY ORDERABLE S [facility] [address] * (ABNORMAL) CBC W AUTO DIFF (07/19/2021 8:45 AM BEREAVEMENT COORDINATOR) White Blood Cell Count 5.9 4.8 - 9.6 THOUS/uL [facility] Red Blood Cell Count 5.06 4.33 - 5.59 MIL/uL [facility] Hemoglobin 15.8 13.1 - 16.8 GM/DL [facility] Hematocrit 46.1 38.8 - 49.0 % [facility] Mean Corpuscular Volume 91.1 82.7 - 94.4 [facility] Mean Corpuscular Hemoglobin 31.2 27.7 - 32.6 PG [facility] Mean Corpuscular Hemoglobin Conc 34.3 32.4 - 35.7 G/DL [facility] Rdwcv 12.7 11.6 - 13.9 % [facility] Rdwsd 42.4 36.0 - 46.1 [facility] Platelet Count 293 154 - 364 THOUS/uL [facility] Mean Platelet Volume 9.9 8.7 - 11.7 [facility] Nucleated Red Blood Cells 0.0 0.0 /100 WBC'S [facility] Abs NRBC 0.0 0.0 THOUS/uL [facility] Differential Type AUTO FE [facility] Neutrophils 72.6(H) 34.0 - 67.9 % [facility] Lymphs 18.0(L) 19.1 - 41.2 % [facility] Monocytes 7.5 6.1 - 12.3 % [facility] Eos 0.5(L) 0.9 - 7.6 % [facility] Basos 0.9 0.2 - 1.5 % [facility] Neutrophils Absolute Count 4.3 2.7 - 5.8 THOUS/uL [facility] Lymphocytes Absolute Count 1.1 1.1 - 3.3 THOUS/uL [facility] Monocytes Absolute Count 0.4 0.4 - 0.9 THOUS/uL [facility] Eosinophils Absolute Count 0.0(L) 0.1 - 0.6 THOUS/uL [facility] Basophils Absolute Count 0.1 0.0 - 0.1 THOUS/uL [facility] Imm Gran 0.5 0.2 - 0.9 % [facility] Abs Imm Gran 0.03 0.0 - 0.1 THOUS/uL [facility] Blood 07/19/2021 8:45 AM BEREAVEMENT COORDINATOR 07/19/2021 8:47 AM BEREAVEMENT COORDINATOR Cody WORKMAN HEMATOLOGY ORDERABL ES [facility] [address] [place] [address] * (ABNORMAL) COMPREHENSIVE METABOLIC PANEL (07/19/2021 8:45 AM BEREAVEMENT COORDINATOR) Glucose 97 65 - 100 MG/DL [facility] Blood Urea Nitrogen 16 7 - 18 MG/DL [facility] Creatinine 1.2 0.7 - 1.3 MG/DL [facility] Sodium 131(L) 136 - 145 MMOL/L [facility] Potassium 4.0 3.5 - 5.1 MMOL/L [facility] Chloride 94(L) 98 - 107 MMOL/L [facility] Co2 29 21 - 32 MMOL/L [facility] Calcium 8.5 8.5 - 10.1 MG/DL [facility] Protein Total 7.0 6.4 - 8.2 G/DL [facility] Albumin 3.8 3.4 - 5.0 G/DL [facility] A/G Ratio 1.2 0.8 - 2.0 [facility] Alkaline Phosphatase 75 46 - 116 U/L [facility] Alt (SGPT) 39 16 - 63 U/L [facility] AST(SGOT) 19 15 - 37 U/L [facility] Bilirubin, Total 1.1(H) 0.2 - 1.0 MG/DL [facility] GFR Comment IF PATIENT IS , MULTIPLY RESULT BY 1.16 [facility] Est GFR 71(L) >90 ML/MIN/1. 73sq.m [facility] Blood 07/19/2021 8:45 AM BEREAVEMENT COORDINATOR 07/19/2021 8:47 AM BEREAVEMENT COORDINATOR Cody WORKMAN CHEMISTRY ORDERABLE S Performing Organization Address City/State/[facility] Co de Phone Number [facility] [address] * TESTOS FREE/TOT ADULT MALE (10/11/2020 8:42 AM BEREAVEMENT COORDINATOR) Total Testosterone 641 300 - 890 ng/dL [facility] Comment: (NOTE) REFERENCE INTERVAL: Testosterone, Adult Male Access complete set of age- and/or gender-specific reference intervals for this test in the [facility] Test Directory ([facility]). Testosterone Free 151 47 - 244 pg/mL [facility] Comment: (NOTE) INTERPRETIVE INFORMATION: ??Testosterone, Free Joel Stage IV ?35 - 169 pg/mL Joel Stage V ? 41 - 239 pg/mL The concentration of Free Testosterone is derived from a mathematical expression based on the constant for the binding of testosterone to Sex Hormone Binding Globulin (SHBG). Access complete set of age- and/or gender-specific reference intervals for this test in the [facility] Test Directory ([facility]ytro). Sex Hormone Binding Globulin 22 (NOTE) REFERENCE INTERVAL: Sex Hormone Binding Globulin Access complete set of age- and/or gender-specif ic reference ??intervals for this test in the [facility] Test Directory ?? (Lytro) . 11 - 80 nmol/L [facility] Testosterone Free Percent 2.4 1.6 - 2.9 % [facility] [email or web address] Comment: (NOTE) Performed By: [facility] [address] [place] [address] Polishing Machine Tender: Kacy Lewis MD Blood 10/11/2020 8:42 AM BEREAVEMENT COORDINATOR 10/11/2020 8:44 AM BEREAVEMENT COORDINATOR Cody WORKMAN LAB SEND OUT ORDERA BLES Performing Organization Address [facility] Co de Phone Number [facility] [address] [place], [place] [id number] [place] [address] * (ABNORMAL) BASIC METABOLIC PANEL (CHEM8) (10/11/2020 8:42 AM BEREAVEMENT COORDINATOR) Pathologist [facility] Glucose 89 65 - 100 MG/DL [facility] Audit Blood Urea Nitrogen 14 7 - 18 MG/DL [facility] Creatinine 1.3 0.7 - 1.3 MG/DL [facility] Sodium 136 136 - 145 MMOL/L [facility] Potassium 4.0 3.5 - 5.1 MMOL/L [facility] Chloride 98 98 - 107 MMOL/L [facility] Co2 31 21 - 32 MMOL/L [facility] Calcium 8.6 8.5 - 10.1 MG/DL [facility] GFR Comment IF PATIENT IS , MULTIPLY RESULT BY 1.16 [facility] Audit Est GFR 65(L) >90 ML/MIN/1. 73sq.m [facility] Blood 10/11/2020 8:42 AM BEREAVEMENT COORDINATOR 10/11/2020 8:44 AM BEREAVEMENT COORDINATOR Cody WORKMAN CHEMISTRY ORDERABLE S Performing Organization Address [facility] Co de Phone Number [facility] [address] [place] [address] * PSA SCREEN (10/11/2020 8:42 AM BEREAVEMENT COORDINATOR) Prostate Specific Antigen Total 0.55 0.00 - 4.00 NG/ML [facility] PSA Comment SEE NOTES [facility] Comment: Dimension EXL 200 methodology is a one-step enzyme immunoassay based on the sandwhich principle. ??The concentration of PSA in a given specimen determined with assays from different manufacturers can vary due to differences in assay methods and reagent specificity. Values obtained with different assay methods cannot be used interchangeably. Blood 10/11/2020 8:42 AM BEREAVEMENT COORDINATOR 10/11/2020 8:44 AM BEREAVEMENT COORDINATOR Cody WORKMAN CHEMISTRY ORDERABLE S [facility] Audit [address] documented in this encounter Visit Diagnoses Diagnosis Testosterone deficiency- Primary Other testicular hypofunction Long-term current use of testosterone replacement therapy Decreased GFR Nonspecific abnormal results of kidney function study Dyslipidemia Other and unspecified hyperlipidemia Medication management Encounter for long-term (current) use of other medications documented in this encounter Care Teams Emr Analyst Relationship Specialty Start Date End Date Cody Simms PA [address] [place] [address] PCP - General Physician Tunnel Elastic Operator Lockstitch 10/24/18 03/10/22 documented as of this encounter
--- OUTSIDE RECORDS SUMMARY | 2024-08-26 09:52 | XMS_ITS | Encounter Summary ---
Author Organization [facility] Address [address] [place] [address] Care Team Providers Care Electronic Field Service Engineer Name Role Phone Cody Simms Primary Care Provider +1- [phone] Reason for Visit * Reason Comments Annual Exam Results labs Encounter Details Date Type Department Care Team (Late st Contact Info) Description 06/16/2019 2:30 PM CDT Office Visit [facility] [address] [place] [address] Cody Simms PA [address] [place] [address] Compliance with medication regimen (Primary [...] testosterone replacement by an aging Clinic in [place]. He continues to take that. He does [...] * (ABNORMAL) LIPID PROFILE (09/09/2019 8:41 AM SIGN MAKER) Cholesterol 199 0 - 200 MG/DL [facility] Triglycerides 208(H) 0 - 150 MG/DL [facility] HDL 29(L) 40 - 60 MG/DL [facility] LDL Cholesterol 128(H) 0 - 100 MG/DL [facility] LDL/HDL Ratio 4.41 [facility] VLDL, Calc 42(H) 0 - 35 MG/DL [facility] Blood 09/09/2019 8:41 AM SIGN MAKER 09/09/2019 8:43 AM SIGN MAKER Cody WORKMAN CHEMISTRY ORDERABLE S Performing Organization Address City/State/[facility] Co de Phone Number [facility] [address] * (ABNORMAL) COMPREHENSIVE METABOLIC PANEL (09/09/2019 8:41 AM SIGN MAKER) Glucose 105(H) 65 - 100 MG/DL [facility] Blood Urea Nitrogen 20(H) 7 - 18 MG/DL [facility] Creatinine 1.4(H) 0.7 - 1.3 MG/DL [facility] Sodium 135(L) 136 - 145 MMOL/L [facility] Potassium 3.9 3.5 - 5.1 MMOL/L [facility] Chloride 100 98 - 107 MMOL/L [facility] Co2 31 21 - 32 MMOL/L [facility] Calcium 8.5 8.5 - 10.1 MG/DL [facility] Osmolality 273 273 - 304 mOsm/L [facility] Protein Total 6.8 6.4 - 8.2 G/DL [facility] Albumin 3.5 3.4 - 5.0 G/DL [facility] A/G Ratio 1.1 0.8 - 2.0 [facility] Alkaline Phosphatase 60 46 - 116 U/L [facility] Alt (SGPT) 44 16 - 63 U/L [facility] AST(SGOT) 20 15 - 37 U/L [facility] Bilirubin, Total 0.6 0.2 - 1.0 MG/DL [facility] Est GFR 54(L) >60 ML/MIN/1. 73sq.m [facility] GFR Comment IF PATIENT IS , MULTIPLY RESULT BY 1.21 [facility] Blood 09/09/2019 8:41 AM SIGN MAKER 09/09/2019 8:43 AM SIGN MAKER Cody WORKMAN CHEMISTRY ORDERABLE S Performing Organization Address City/State/[facility] Co de Phone Number [facility] [address] [place] [address] * (ABNORMAL) CBC W AUTO DIFF (09/09/2019 8:41 AM SIGN MAKER) White Blood Cell Count 6.4 4.8 - 9.6 THOUS/uL [facility] Red Blood Cell Count 5.25 4.33 - 5.59 MIL/uL [facility] Hemoglobin 15.4 13.1 - 16.8 GM/DL [facility] Hematocrit 47.2 38.8 - 49.0 % [facility] Mean Corpuscular Volume 89.9 82.7 - 94.4 [facility] Mean Corpuscular Hemoglobin 29.3 27.7 - 32.6 PG [facility] Mean Corpuscular Hemoglobin Conc 32.6 32.4 - 35.7 G/DL [facility] Rdwcv 12.8 11.6 - 13.9 % [facility] Rdwsd 42.3 36.0 - 46.1 [facility] Platelet Count 253 154 - 364 THOUS/uL [facility] Mean Platelet Volume 10.1 8.7 - 11.7 [facility] Nucleated Red Blood Cells 0.0 0.0 /100 WBC'S [facility] Abs NRBC 0.0 0.0 THOUS/uL [facility] Differential Type AUTO FE [facility] Neutrophils 61.5 34.0 - 67.9 % [facility] Lymphs 23.5 19.1 - 41.2 % [facility] Monocytes 11.2 6.1 - 12.3 % [facility] Eos 1.9 0.9 - 7.6 % [facility] Basos 0.8 0.2 - 1.5 % [facility] Neutrophils Absolute Count 4.0 2.7 - 5.8 THOUS/uL [facility] Lymphocytes Absolute Count 1.5 1.1 - 3.3 THOUS/uL [facility] Monocytes Absolute Count 0.7 0.4 - 0.9 THOUS/uL [facility] Eosinophils Absolute Count 0.1 0.1 - 0.6 THOUS/uL [facility] Basophils Absolute Count 0.1 0.0 - 0.1 THOUS/uL [facility] Imm Gran 1.1(H) 0.2 - 0.9 % [facility] Abs Imm Gran 0.07 0.0 - 0.1 THOUS/uL [facility] Blood 09/09/2019 8:41 AM SIGN MAKER 09/09/2019 8:43 AM SIGN MAKER Cody WORKMAN HEMATOLOGY ORDERABL ES Performing Organization Address [facility] Co de Phone Number [facility] [address] [place] [address] * ETHOS DRUG SCREEN (06/27/2019) Cody WORKMAN LAB SEND OUT ORDERA BLES Performing Organization Address City/[facility] Co de Phone Number [facility] [address] [place] [address] documented in this encounter Visit Diagnoses Diagnosis Compliance with medication regimen- Primary Hypotestosteronemia Dyslipidemia Other and unspecified hyperlipidemia Anxiety Anxiety state, unspecified documented in this encounter Care Teams Electronic Field Service Engineer Relationship Specialty Start Date End Date Cody Simms PA [address] [place] [address] PCP - General Physician Volunteer Recruiter 10/24/18 03/10/22 documented as of this encounter
--- OUTSIDE RECORDS SUMMARY | 2024-08-26 09:52 | XMS_ITS | Encounter Summary ---
Author Organization [facility] Address [address] [place] [address] Care Team Providers Care Bread Jockey Name Role Phone Haile Singh MD Primary Care Provider [phone] Reason for Referral * Referral (Routine) - Closed Specialty Diagnoses / Procedures Referred By Contac t Referred To Contact Nephrology Diagnoses Decreased GFR Cody Simms PA [address] [place] [address] Babatunde Oliva MD [address] [place] [address] Referral ID Status Reason Start Date Expiration Date V isits Requested Visits Authorized [id number] Closed Consult 09/21/2018 1 1 T SERVICES ASSOCIATE Encounter Details Date Type Department Care Team (Late st Contact Info) Description 09/21/2018 Orders Only [facility] [address] [place] [address] [place] [address] Cody Simms PA [address] [place] [address] Decreased GFR (Primary Dx) Social [...] study documented in this encounter Care Teams Bread Jockey Relationship Specialty Start Date End Date Haile Singh MD [address] [place] [id number] PCP - General Family Medicine 10/13/13 09/22/18 documented as of this encounter
--- OUTSIDE RECORDS SUMMARY | 2024-08-26 09:52 | XMS_ITS | Encounter Summary ---
Author Organization [facility] Address [address] [place] [address] Care Team Providers Care Olericulture Professor Name Role Phone Haile Singh MD Primary Care Provider +1- [phone] Reason for Visit * Reason Comments Follow-up Here to follow up fo r medication refills on xanax. Encounter Details Date Type Department Care Team (Late st Contact Info) Description 01/07/2017 3:30 PM CDT Office Visit [facility] [address] [place] [id number] [place] [address] [place] [address] Anxiety (Primary Dx); Panic disorder; Elevated [...] work. 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 Elevated blood pressure-. Patient's blood pressure [...] 03/09/2017). JI Vasquez 01/07/2017 6:33 PM This impregnator and drier helper was electronically signed. It was dictated by use of voice recognition software and electronically transcribed. The impregnator and drier helper may contain errors not detected in proofreading. documented in this encounter Plan of Treatment Not on file documented as of this encounter Results * [employer] DRUG SCREEN URINE (01/12/2017) Niya WORKMAN LAB SEND OUT ORDER MELVIN Performing Organization Address City/State/[facility] Co de Phone Number [address] documented in this encounter Visit Diagnoses Diagnosis Anxiety- Primary Anxiety state, unspecified Panic disorder Panic disorder without agoraphobia Elevated blood pressure reading Elevated blood pressure reading without diagnosis of hypertension documented in this encounter Care Teams Olericulture Professor Relationship Specialty Start Date End Date Haile Singh MD [address] [place] [address] PCP - General Family Medicine 10/13/13 09/22/18 documented as of this encounter
--- OUTSIDE RECORDS SUMMARY | 2024-08-26 09:52 | XMS_ITS | Encounter Summary ---
Author Organization [facility] Address [address] [place] [address] Care Team Providers Care Childcare Attendant Name Role Phone Cody Simms Primary Care Provider +1- [phone] Reason for Visit * Reason Comments Follow-up testosterone states he feels more energetic Encounter Details Date Type Department Care Team (Late st Contact Info) Description 12/15/2018 2:00 PM CDT Office Visit [facility] [address] [place] [address] Cody Simms PA [address] [place] [address] Encounter for vitamin deficiency screening [...] Antigen Total 0.9 0.1 TO 4.0 ng/mL [facility] Blood 02/27/2019 9:45 AM CDT Cody WORKMAN CHEMISTRY ORDERABLE S Performing Organization Address [facility] Phone Number [address] * VITAMIN D 25 HYDROXY (02/27/2019 9:45 AM CDT) Vit D 25 Hydroxy 53.6 30.0 TO 100.0 ng/mL [facility] 02/27/2019 9:45 AM CDT Cody WORKMAN CHEMISTRY ORDERABLE S Performing Organization Address [facility] Phone Number [address] * TSH THIRD GENERATION (02/27/2019 9:45 AM CDT) TSH High Sensitivity 1.48 0.30 TO 3.04 uIU/mL [facility] Blood 02/27/2019 9:45 AM CDT Cody WORKMAN CHEMISTRY ORDERABLE S Performing Organization Address [facility] Phone Number [address] * (ABNORMAL) LIPID PROFILE (02/27/2019 9:45 AM CDT) Triglycerides 163(H) 0 TO 150 mg/dL [facility] Cholesterol 218(H) 0 TO 200 mg/dL [facility] HDL 31(L) 35 TO 60 mg/dL [facility] LDL Cholesterol 154(H) 0 TO 100 mg/dL [facility] VLDL, Calc 32.6 0.0 TO 35.0 mg/dL [facility] LDL/HDL Ratio 7.0(H) 3.0 TO 6.0 [facility] Blood 02/27/2019 9:45 AM CDT Cody WORKMAN CHEMISTRY ORDERABLE S Performing Organization Address City/State/[facility] Co de Phone Number [facility] [address] [place] [address] * (ABNORMAL) COMPREHENSIVE METABOLIC PANEL (02/27/2019 9:45 AM CDT) Glucose 101(H) 65 TO 100 mg/dL [facility] Blood Urea Nitrogen 24(H) 7 TO 18 mg/dL [facility] Creatinine 1.4(H) 0.7 TO 1.3 mg/dL [facility] Sodium 137 136 TO 145 mmol/L [facility] Potassium 3.9 3.5 TO 5.1 mmol/L [facility] Chloride 98 98 TO 107 mmol/L [facility] Co2 35(H) 21 TO 32 mmol/L [facility] Calcium 8.9 8.5 TO 10.1 mg/dL [facility] Osmolality 278 273 TO 304 mOsm/L [facility] Protein Total 7.4 6.4 TO 8.2 mg/dL [facility] Albumin 3.8 3.4 TO 5.0 g/dL [facility] Globulin 3.6 2.4 TO 4.2 g/dL [facility] A/G Ratio 1.1 0.8 TO 2.0 [facility] Alkaline Phosphatase 61 46 TO 116 U/L [facility] Alt (SGPT) 39 16 TO 63 U/L [facility] AST(SGOT) 26 15 TO 37 U/L [facility] Bilirubin, Total 1.3(H) 0.2 TO 1.0 mg/dL [facility] Est GFR 58(L) 60 TO 150 mL/min/1.7 3m*2 [facility] Blood 02/27/2019 9:45 AM CDT Cody WORKMAN CHEMISTRY ORDERABLE S [facility] [address] * CBC W AUTO DIFF (02/27/2019 9:45 AM CDT) White Blood Cell Count 5.10 4.00 TO 11.00 K/uL [facility] Neutrophils 56.4 34.0 TO 67.9 % [facility] Lymphs 29.4 21.8 TO 53.1 % [facility] Monocytes 11.40 5.3 TO 12.2 % [facility] Eos 2.20 0.8 TO 7.0 % [facility] Basos 0.60 0.2 TO 1.2 % [facility] Neutrophils Absolute Count 2.88 1.78 TO 5.38 K/uL [facility] Lymphocytes Absolute Count 1.50 1.32 TO 3.57 KuL [facility] Monocytes Absolute Count 0.58 0.30 TO 0.82 /uL [facility] Eosinophils Absolute Count 0.11 0.04 TO 0.54 [facility] Basophils Absolute Count 0.03 0.01 TO 0.08 [facility] Red Blood Cell Count 5.45 4.63 TO 6.08 M/uL [facility] Hemoglobin 16.9 13.7 TO 17.5 g/dL [facility] Hematocrit 49.1 40.1 TO 51.0 % [facility] Mean Corpuscular Volume 90.1 79.0 TO 92.2 [facility] Mean Corpuscular Hemoglobin 31.0 25.7 TO 32.2 pg [facility] Mean Corpuscular Hemoglobin Conc 34.4 32.3 TO 36.5 g/dL [facility] Red Cell Distribution Width 13.1 11.6 TO 14.4 % [facility] Platelet Count 227 130 TO 450 K/uL [facility] Mean Platelet Volume 10.30 8.1 TO 12.4 [facility] Platelet Estimate ADEQUATE [facility] RBC Morphology NORMAL [facility] Peripheral Smear YES [facility] Blood 02/27/2019 9:45 AM CDT Cody WORKMAN HEMATOLOGY ORDERABL ES Performing Organization Address [facility]/ZIP Co de Phone Number [address] * TESTOSTERONE, TOTAL AND FREE, SERUM (02/27/2019) Cody WORKMAN LAB SEND OUT ORDERA BLES Performing Organization Address [facility] Co de Phone Number [address] documented in this encounter Visit Diagnoses [...] medications documented in this encounter Care Teams Childcare Attendant Relationship Specialty Start Date End Date Cody Simms PA [address] [place] [address] PCP - General Physician It Consulting Manager 10/24/18 03/10/22 documented as of this encounter
--- OUTSIDE RECORDS SUMMARY | 2024-08-26 09:52 | XMS_ITS | Encounter Summary ---
Author Organization [facility] Address [address] [place] [address] Care Team Providers Care Sleeve Bottom Feller Name Role Phone Cody Simms Primary Care Provider +1- [phone] Encounter Details Date Type Department Care Team (Late st Contact Info) Description 12/02/2018 Orders Only [facility] [address] [place] [address] Cody Simms PA [address] [place], [place] [address] Hypotestosteronemia Social History Tobacco Use Types Packs/Day [...] (12/02/2018) Blood Cody WORKMAN CHEMISTRY ORDERABLE S [address] documented in this encounter Visit Diagnoses Diagnosis Hypotestosteronemia documented in this encounter Care Teams Sleeve Bottom Feller Relationship Specialty Start Date End Date Cody Simms PA [address] [place] [address] PCP - General Physician Inspector Returned Materials 10/24/18 03/10/22 documented as of this encounter
--- OUTSIDE RECORDS SUMMARY | 2024-08-26 09:52 | XMS_ITS | Encounter Summary ---
Author Organization [facility] Address [address] [place] [address] Care Team Providers Care Clinical Neuropsychologist Name Role Phone Haile Singh MD Primary Care Provider +1- [phone] Reason for Visit * Reason Onset Date Comments Other 04/30/2017 Encounter Details Date Type Department Care Team (Late st Contact Info) Description 04/30/2017 Telephone [facility] [address] [place] [address] Haile Singh MD [address] [place] [address] Other Social History Tobacco Use Types [...] Xanax. He would like it faxed to [facility] in [place]. Can reach him at [phone]. documented in this encounter Plan of Treatment Not on file documented as of this encounter Visit Diagnoses Not on filedocumented in this encounter Care Teams Clinical Neuropsychologist Relationship Specialty Start Date End Date Haile Singh MD [address] [place] [address] PCP - General Family Medicine 10/13/13 09/22/18 documented as of this encounter
--- OUTSIDE RECORDS SUMMARY | 2024-08-26 09:52 | XMS_ITS | Encounter Summary ---
Author Organization [facility] Address [address] [place] [address] Care Team Providers Care Acquisition Professional Name Role Phone Haile Singh MD Primary Care Provider [phone]- [phone] Encounter Details Date Type Department Care Team (Late st Contact Info) Description 05/24/2018 Orders Only [facility] [address] [place] [address] Haile Singh MD [address] [place] [address] Medication management; Hyperglycemia; Family history of [...] SEND OUT ORDERA BLES Performing Organization Address [facility] Co de Phone Number [address] * (ABNORMAL) LIPID PROFILE (05/24/2018 11:58 AM CDT) Pathologist [facility] Triglycerides 126 0 TO 150 mg/dL [facility] Cholesterol 184 0 TO 200 mg/dL [facility] HDL 29(L) 35 TO 60 mg/dL [facility] LDL Cholesterol 130(H) 0 TO 100 mg/dL [facility] VLDL, Calc 25.2 0.0 TO 35.0 mg/dL [facility] LDL/HDL Ratio 6.3(H) 3.[address] [facility] Blood 05/24/2018 11:5 8 AM CDT Haile Singh MD CHEMISTRY ORDERABLE S Performing Organization Address [facility] Co de Phone Number [address] * HEMOGLOBIN A1C (05/24/2018 11:58 AM CDT) [facility] Hemoglobin A1C 5.6 4.5 TO 6.2 % [facility] Blood 05/24/2018 11:5 8 AM CDT Haile Singh MD CHEMISTRY ORDERABLE S Performing Organization Address [facility] Co de Phone Number [address] * HEPATIC (LIVER) FUNCTION PANEL (05/24/2018 11:58 AM CDT) Pathologist [facility] Protein Total 7.8 6.4 TO 8.2 mg/dL [facility] Albumin 3.9 3.4 TO 5.0 g/dL [facility] Globulin 3.9 2.4 TO 4.2 g/dL [facility] A/G Ratio 1.0 0.8 TO 2.0 [facility] Alkaline Phosphatase 65 46 TO 116 U/L [facility] Alt (SGPT) 32 16 TO 63 U/L [facility] AST(SGOT) 18 15 TO 37 U/L [facility] Bilirubin, Total 0.9 0.2 TO 1.0 mg/dL [facility] Bilirubin, Indirect 0.8 0.0 TO 1.3 mg/dL [facility] Bilirubin Direct 0.1 0.0 TO 0.3 mg/dL [facility] Blood 05/24/2018 11:5 8 AM CDT Haile Singh MD CHEMISTRY ORDERABLE S [address] documented in this encounter Visit Diagnoses Diagnosis Medication management Encounter for long-term (current) use of other medications Hyperglycemia Other abnormal glucose Family history of diabetes mellitus Dyslipidemia Other and unspecified hyperlipidemia documented in this encounter Care Teams Acquisition Professional Relationship Specialty Start Date End Date Haile Singh MD [address] [place] [address] PCP - General Family Medicine 10/13/13 09/22/18 documented as of this encounter
--- OUTSIDE RECORDS SUMMARY | 2024-08-26 09:52 | XMS_ITS | Encounter Summary ---
Author Organization [facility] Address [address] [place] [address] Care Team Providers Care Middleware Developer Name Role Phone Cody Simms Primary Care Provider +1- [phone] Reason for Visit * Reason Comments Medication Refill Encounter Details Date Type Department Care Team ([facility] st Contact Info) Description 07/11/2019 Refill [facility] [address] [place] [address] Cody Simms PA [address] [place] [address] Medication Refill Social History Tobacco Use Types [...] on filedocumented in this encounter Care Teams Middleware Developer Relationship Specialty Start Date End Date Cody Simms PA [address] [place] [address] PCP - General Physician Box Stamper 10/24/18 03/10/22 documented as of this encounter
--- OUTSIDE RECORDS SUMMARY | 2024-08-26 09:52 | XMS_ITS | Encounter Summary ---
Author Organization [facility] Address [address] [place] [address] Care Team Providers Care Ware Server Name Role Phone Haile Singh MD Primary Care Provider +[phone] Reason for Visit * Reason Comments Follow-up Encounter Details Date Type Department Care Team ([facility] st Contact Info) Description 06/22/2017 1:45 PM CDT Office Visit [facility] [address] [place] [phone] Haile Singh MD [address] [place] [address] IGGY (generalized anxiety disorder) (Primary Dx); [...] 25 HYDROXY (12/11/2017 12:20 PM CDT) Pathologist [facility] Vit D 25 Hydroxy 32.4 30.0 TO 100.0 ng/mL [facility] 12/11/2017 12:2 0 PM CDT Haile Singh MD CHEMISTRY ORDERABLE S Performing Organization Address [facility]/ZIP Co de Phone Number [address] * TSH THIRD GENERATION (12/11/2017 12:20 PM CDT) Pathologist [facility] TSH High Sensitivity 0.71 0.30 TO 3.04 uIU/mL [facility] Blood 12/11/2017 12:2 0 PM CDT Haile Singh MD CHEMISTRY ORDERABLE S Performing Organization Address [facility] Co de Phone Number [address] * (ABNORMAL) LIPID PROFILE (12/11/2017 12:20 PM CDT) Pathologist [facility] Triglycerides 383(H) 0 TO 150 mg/dL [facility] Cholesterol 238(H) 0 TO 200 mg/dL [facility] HDL 34(L) 35 TO 60 mg/dL [facility] LDL Cholesterol 127(H) 0 TO 100 mg/dL [facility] VLDL, Calc 76.6(H) 0.0 TO 35.0 mg/dL [facility] LDL/HDL Ratio 7.0(H) 3.[address] [facility] Comment: LDL is not valid when triglyceride is greater than 400 mg/dL Blood 12/11/2017 12:2 0 PM CDT Haile Singh MD CHEMISTRY ORDERABLE S Performing Organization Address [facility] Co de Phone Number [address] * (ABNORMAL) COMPREHENSIVE METABOLIC PANEL (12/11/2017 12:20 PM CDT) Pathologist [facility] Glucose 102(H) 65 TO 100 mg/dL [facility] Blood Urea Nitrogen 21(H) 7 TO 18 mg/dL [facility] Creatinine 1.2 0.7 TO 1.3 mg/dL [facility] Sodium 140 136 TO 145 mmol/L [facility] Potassium 4.0 3.5 TO 5.1 mmol/L [facility] Chloride 100 98 TO 107 mmol/L [facility] Co2 30 21 TO 32 mmol/L [facility] Calcium 8.7 8.5 TO 10.1 mg/dL [facility] Osmolality 283 273 TO 304 mOsm/L [facility] Protein Total 7.5 6.4 TO 8.2 mg/dL [facility] Albumin 3.7 3.4 TO 5.0 g/dL [facility] Globulin 3.8 2.4 TO 4.2 g/dL [facility] A/G Ratio 1.0 [address] [facility] Alkaline Phosphatase 80 46 TO 116 U/L [facility] Alt (SGPT) 52 16 TO 63 U/L [facility] AST(SGOT) 25 15 TO 37 U/L [facility] Bilirubin, Total 0.6 0.2 TO 1.0 mg/dL [facility] Est GFR 70 60 TO 150 mL/min/1.7 3m*2 [facility] Comment: *THE GFR IS NOT APPLICABLE FOR PEDIATRIC PATIENTS, NOR THOSE >70 YEARS OLD. GFR NORMAL RANGE >60 mL/min Blood 12/11/2017 12:2 0 PM CDT Haile Singh MD CHEMISTRY ORDERABLE S Performing Organization Address City/State/[facility] Co de Phone Number [facility] [address] [place] [address] * (ABNORMAL) CBC W AUTO DIFF (12/11/2017 12:20 PM CDT) Pathologist [facility] White Blood Cell Count 6.79 4.00 TO 11.00 K/uL [facility] Neutrophils 67.0 34.0 TO 67.9 % [facility] Lymphs 21.4(L) 21.8 TO 53.1 % [facility] Monocytes 9.10 5.3 TO 12.2 % [facility] Eos 1.90 0.8 TO 7.0 % [facility] Basos 0.60 0.2 TO 1.2 % [facility] Neutrophils Absolute Count 4.55 1.78 TO 5.38 K/uL [facility] Lymphocytes Absolute Count 1.45 1.32 TO 3.57 K/uL [facility] Monocytes Absolute Count 0.62 0.30 TO 0.82 K/uL [facility] Eosinophils Absolute Count 0.13 0[address] [facility] Basophils Absolute Count 0.04 0.01 TO 0.08 /uL [facility] Red Blood Cell Count 4.89 4.63 TO 6.08 M/uL [facility] Hemoglobin 15.0 13.7 TO 17.5 g/dL [facility] Hematocrit 43.7 40.1 TO 51.0 % [facility] Mean Corpuscular Volume 89.4 79.0 TO 92.2 [facility] Mean Corpuscular Hemoglobin 30.7 25.[address] [facility] Mean Corpuscular Hemoglobin Conc 34.3 32.3 TO 36.5 g/dL [facility] Red Cell Distribution Width 12.6 11.6 TO 14.4 % [facility] Platelet Count 280 130 TO 450 K/uL [facility] Mean Platelet Volume 9.30 8.1 TO 12.4 [facility] Comment:.................... Blood 12/11/2017 12:2 0 PM CDT Haile Singh MD HEMATOLOGY ORDERABL [facility] Organization Address City/State/[facility] Co de Phone Number [address] documented in this encounter Visit Diagnoses Diagnosis IGGY (generalized anxiety disorder)- Primary Generalized anxiety disorder Hypovitaminosis D Unspecified vitamin D deficiency Dyslipidemia Other and unspecified hyperlipidemia Medication management Encounter for long-term (current) use of other medications Thyroid disorder screen Screening for thyroid disorder documented in this encounter Care Teams Ware Server Relationship Specialty Start Date End Date Haile Singh MD [address] [place] [address] PCP - General Family Medicine 10/13/13 09/22/18 documented as of this encounter
--- OUTSIDE RECORDS SUMMARY | 2024-08-26 09:52 | XMS_ITS | Encounter Summary ---
Author Organization [facility] Address [address] [place] [address] Care Team Providers Care Employment Assistant Name Role Phone Haile Singh MD Primary Care Provider [phone]- [phone] Encounter Details Date Type Department Care Team (Late st Contact Info) Description 03/03/2017 Orders Only [facility] [address] [place] [phone] Haile Singh MD [address] [place] [address] Hypotestosteronism Social History Tobacco Use Types [...] Singh MD LAB SEND OUT [facility] [address] documented in this encounter Visit Diagnoses Diagnosis Hypotestosteronism Other testicular hypofunction documented in this encounter Care Teams Employment Assistant Relationship Specialty Start Date End Date Haile Singh MD [address] [place] [address] PCP - General Family Medicine 10/13/13 09/22/18 documented as of this encounter
--- OUTSIDE RECORDS SUMMARY | 2024-08-26 09:52 | XMS_ITS | Encounter Summary ---
Author Organization [facility] Address [address] [place] [address] Care Team Providers Care Claim Trainee Name Role Phone Cody Simms Primary Care Provider +1- [phone] Reason for Visit * Reason Comments Follow-up 3 month Results labs Medication Refill testosterone 10 ml v ial and 18 gauge needles and Clomid Encounter Details Date Type Department Care Team (Late st Contact Info) Description 03/10/2019 2:30 PM CDT Office Visit [facility] [address] [place] [address] Cody Simms PA [address] [place] [address] IGGY (generalized anxiety disorder) (Primary [...] CDT) Glucose 96 65 - 100 MG/DL [facility] Blood Urea Nitrogen 24(H) 7 - 18 MG/DL [facility] Creatinine 1.2 0.7 - 1.3 MG/DL [facility] Sodium 135(L) 136 - 145 MMOL/L [facility] Potassium 3.9 3.5 - 5.1 MMOL/L [facility] Chloride 97(L) 98 - 107 MMOL/L [facility] Co2 30 21 - 32 MMOL/L [facility] Calcium 9.1 8.5 - 10.1 MG/DL [facility] Osmolality 274 mOsm/L [facility] Protein Total 7.7 6.4 - 8.2 G/DL [facility] Albumin 3.9 3.4 - 5.0 G/DL [facility] A/G Ratio 1.0 [facility] Alkaline Phosphatase 58 46 - 116 U/L [facility] Alt (SGPT) 35 16 - 63 U/L [facility] AST(SGOT) 21 15 - 37 U/L [facility] Bilirubin, Total 0.9 0.2 - 1.0 MG/DL [facility] Est GFR >60 >60 ML/MIN/1. 73sq.m [facility] GFR Comment IF PATIENT IS , MULTIPLY RESULT BY 1.21 [facility] Blood 06/06/2019 10:0 0 AM CDT 06/06/2019 10:04 AM CDT Cody WORKMAN CHEMISTRY ORDERABLE S Performing Organization Address City/[facility]/ZIP Co de Phone Number [facility] [address] * (ABNORMAL) LIPID PROFILE (06/06/2019 10:00 AM CDT) Cholesterol 184 0 - 200 MG/DL [facility] Triglycerides 180(H) 0 - 150 MG/DL [facility] HDL 32(L) 40 - 60 MG/DL [facility] LDL Cholesterol 116(H) 0 - 100 MG/DL [facility] LDL/HDL Ratio 3.63 [facility] VLDL, Calc 36(H) 0 - 35 MG/DL [facility] Blood 06/06/2019 10:0 0 AM CDT 06/06/2019 10:04 AM CDT Cody WORKMAN CHEMISTRY ORDERABLE S Performing Organization Address City/[facility]/ZIP Co de Phone Number [facility] [address] [place] [address] documented in this encounter Visit Diagnoses Diagnosis IGGY (generalized anxiety disorder)- Primary Generalized anxiety disorder Hypotestosteronemia Dyslipidemia Other and unspecified hyperlipidemia Decreased GFR Nonspecific abnormal results of kidney function study documented in this encounter Care Teams Claim Trainee Relationship Specialty Start Date End Date Cody Simms PA [address] [place] [address] PCP - General Physician State Tested Nursing Assistant 10/24/18 03/10/22 documented as of this encounter
--- OUTSIDE RECORDS SUMMARY | 2024-08-26 09:52 | XMS_ITS | Encounter Summary ---
Author Organization [facility] Address [address] [place] [address] Care Team Providers Care Vp Research Name Role Phone Cody Simms Primary Care Provider +1- [phone] Encounter Details Date Type Department Care Team (Late st Contact Info) Description 02/27/2019 Orders Only [facility] [address] [place] [address] Cody Simms PA [address] [place] [address] Screening for prostate cancer; Encounter [...] Cell Count 5.10 4.00 TO 11.00 K/uL [facility] Neutrophils 56.4 34.0 TO 67.9 % [facility] Lymphs 29.4 21.8 TO 53.1 % [facility] Monocytes 11.40 5.3 TO 12.2 % [facility] Eos 2.20 0.8 TO 7.0 % [facility] Basos 0.60 0.2 TO 1.2 % [facility] Neutrophils Absolute Count 2.88 1.78 TO 5.38 K/uL [facility] Lymphocytes Absolute Count 1.50 1.32 TO 3.57 K/uL [facility] Monocytes Absolute Count 0.58 0.30 TO 0.82 K/uL [facility] Eosinophils Absolute Count 0.11 0.04 TO 0.54 K/uL [facility] Basophils Absolute Count 0.03 0.01 TO 0.08 K/uL [facility] Red Blood Cell Count 5.45 4.63 TO 6.08 M/uL [facility] Hemoglobin 16.9 13.7 TO 17.5 g/dL [facility] Hematocrit 49.1 40.1 TO 51.0 % [facility] Mean Corpuscular Volume 90.1 79.0 TO 92.2 fL [facility] Mean Corpuscular Hemoglobin 31.0 25.7 TO 32.2 pg [facility] Mean Corpuscular Hemoglobin Conc 34.4 32.3 TO 36.5 g/dL [facility] Red Cell Distribution Width 13.1 11.6 TO 14.4 % [facility] Platelet Count 227 130 TO 450 K/uL [facility] Mean Platelet Volume 10.30 8.1 TO 12.4 fL [facility] Platelet Estimate ADEQUATE [facility] RBC Morphology NORMAL [facility] Peripheral Smear YES [facility] Blood 02/27/2019 9:45 AM CDT Cody WORKMAN HEMATOLOGY ORDERABL ES Performing Organization Address City/[facility]/ZIP Co de Phone Number [address] * (ABNORMAL) COMPREHENSIVE METABOLIC PANEL (02/27/2019 9:45 AM CDT) Glucose 101(H) 65 TO 100 mg/dL [facility] Blood Urea Nitrogen 24(H) 7 TO 18 mg/dL [facility] Creatinine 1.4(H) 0.7 TO 1.3 mg/dL [facility] Sodium 137 136 TO 145 mmol/L [facility] Potassium 3.9 3.5 TO 5.1 mmol/L [facility] Chloride 98 98 TO 107 mmol/L [facility] Co2 35(H) 21 TO 32 mmol/L [facility] Calcium 8.9 8.5 TO 10.1 mg/dL [facility] Osmolality 278 273 TO 304 mOsm/L [facility] Protein Total 7.4 6.4 TO 8.2 mg/dL [facility] Albumin 3.8 3.4 TO 5.0 g/dL [facility] Globulin 3.6 2.4 TO 4.2 g/dL [facility] A/G Ratio 1.1 0.8 TO 2.0 [facility] Alkaline Phosphatase 61 46 TO 116 U/L [facility] Alt (SGPT) 39 16 TO 63 U/L [facility] AST(SGOT) 26 15 TO 37 U/L [facility] Bilirubin, Total 1.3(H) 0.2 TO 1.0 mg/dL [facility] Est GFR 58(L) 60 TO 150 mL/min/1.7 3m*2 [facility] Blood 02/27/2019 9:45 AM CDT Cody WORKMAN CHEMISTRY ORDERABLE S Performing Organization Address City/[facility]/ZIP Co de Phone Number [address] * (ABNORMAL) LIPID PROFILE (02/27/2019 9:45 AM CDT) Triglycerides 163(H) 0 TO 150 mg/dL [facility] Cholesterol 218(H) 0 TO 200 mg/dL [facility] HDL 31(L) 35 TO 60 mg/dL [facility] LDL Cholesterol 154(H) 0 TO 100 mg/dL [facility] VLDL, Calc 32.6 0.0 TO 35.0 mg/dL [facility] LDL/HDL Ratio 7.0(H) 3.0 TO 6.0 [facility] Blood 02/27/2019 9:45 AM CDT Cody WORKMAN CHEMISTRY ORDERABLE S Performing Organization Address [facility] Phone Number [address] * TSH THIRD GENERATION (02/27/2019 9:45 AM CDT) Pathologist [facility] TSH High Sensitivity 1.48 0.30 TO 3.04 uIU/mL [facility] Blood 02/27/2019 9:45 AM CDT Cody WORKMAN CHEMISTRY ORDERABLE S Performing Organization Address [facility] Phone Number [address] * VITAMIN D 25 HYDROXY (02/27/2019 9:45 AM CDT) Pathologist [facility] Vit D 25 Hydroxy 53.6 30.0 TO 100.0 ng/mL [facility] 02/27/2019 9:45 AM CDT Cody WORKMAN CHEMISTRY ORDERABLE S Performing Organization Address [facility] Co me Phone Number [address] * PSA SCREEN (02/27/2019 9:45 AM CDT) Prostate Specific Antigen Total 0.9 0.1 TO 4.0 ng/mL [facility] Blood 02/27/2019 9:45 AM CDT Cody WORKMAN CHEMISTRY ORDERABLE S Performing Organization Address [facility] Co de Phone Number [address] * TESTOSTERONE, TOTAL AND FREE, SERUM (02/27/2019) Cody WORKMAN LAB SEND OUT ORDERA BLES Performing Organization Address [facility] Co de Phone Number [address] documented in this encounter Visit Diagnoses [...] medications documented in this encounter Care Teams Vp Research Relationship Specialty Start Date End Date Cody Simms PA [address] [place] [address] PCP - General Physician Sample Clerk 10/24/18 03/10/22 documented as of this encounter
--- OUTSIDE RECORDS SUMMARY | 2024-08-26 09:52 | XMS_ITS | Encounter Summary ---
Author Organization [facility] Address [address] [place] [address] Care Team Providers Care Facility Environmental Technician Name Role Phone Cody Simms Primary Care Provider +1- [phone] Reason for Visit * Reason Comments Medication Refill Encounter Details Date Type Department Care Team ([facility] st Contact Info) Description 08/23/2018 Refill [facility] [address] [place] [address] Cody Simms PA [address] [place], [place] [address] Medication Refill Social History Tobacco Use Types [...] SinkZuleika hadley CNA - 08/23/2018 3:08 PM STAGE RIGGER Pt is wanting to know if he can get the xanax filled on Sat because he is leaving out of town Wednesday. Please call back E RIGGER documented in this encounter Plan of Treatment Not on file documented as of this encounter Visit Diagnoses Not on filedocumented in this encounter Care Teams Facility Environmental Technician Relationship Specialty Start Date End Date Cody Simms PA [address] [place] [address] PCP - General Physician Sql Report Developer 10/24/18 03/10/22 documented as of this encounter
--- OUTSIDE RECORDS SUMMARY | 2024-08-26 09:52 | XMS_ITS | Encounter Summary ---
Author Organization [facility] Address [address] [place] [address] Care Team Providers Care Nursing Clinical Director Name Role Phone Haile Singh MD Primary Care Provider +1- [phone] Encounter Details Date Type Department Care Team (Latest Contact Info) Description 2017 [facility] [address] [place] [address] Kirby Miller CMA Hypotestosteronism (Primary [...] hypofunction documented in this encounter Care Teams Nursing Clinical Director Relationship Specialty Start Date End Date Haile Singh MD [address] [place] [address] PCP - General Family Medicine 10/13/13 09/22/18 documented as of this encounter
--- OUTSIDE RECORDS SUMMARY | 2024-08-26 09:52 | XMS_ITS | Encounter Summary ---
Author Organization [facility] Address [address] [place] [address] Care Team Providers Care Fabric Cutter Name Role Phone Cody Simms Primary Care Provider +1- [phone] Reason for Visit * Reason Comments Medication Refill Encounter Details Date Type Department Care Team ([facility] st Contact Info) Description 02/14/2019 Refill [facility] [address] [place] [address] Cody Simms PA [address] [place] [address] Medication Refill Social History Tobacco Use Types [...] on filedocumented in this encounter Care Teams Fabric Cutter Relationship Specialty Start Date End Date Cody Simms PA [address] [place] [address] PCP - General Physician Railway Traction Line Worker 10/24/18 03/10/22 documented as of this encounter
--- OUTSIDE RECORDS SUMMARY | 2024-08-26 09:52 | XMS_ITS | Encounter Summary ---
Author Organization [facility] Address [address] [place] [address] Care Team Providers Care Knitter Helper Name Role Phone Haile Singh MD Primary Care Provider +1- [phone] Encounter Details Date Type Department Care Team (Late st Contact Info) Description 01/22/2017 Orders Only [facility] [address] [place] [phone] Niya Mcknight PA [address] [place], [place] [address] Anxiety Social History Tobacco Use Types Packs/Day [...] Niya WORKMAN LAB SEND OUT ORDER [facility] [address] [place] [address] documented in this encounter Visit Diagnoses Diagnosis Anxiety Anxiety state, unspecified documented in this encounter Care Teams Knitter Helper Relationship Specialty Start Date End Date Haile Singh MD [address] [place] [phone] PCP - General Family Medicine 10/13/13 09/22/18 documented as of this encounter
--- OUTSIDE RECORDS SUMMARY | 2024-08-26 09:52 | XMS_ITS | Encounter Summary ---
Author Organization [facility] Address [address] [place] [address] Care Team Providers Care Fruit Sorter Name Role Phone Cody Simms Primary Care Provider +1- [phone] Encounter Details Date Type Department Care Team (Late st Contact Info) Description 06/06/2019 11:00 AM CDT Lab/X-Ray Only [facility] [address] [place] [address] Galen Jones, DO [address] [place] [phone] Decreased GFR; Dyslipidemia Social History Tobacco Use [...] Total Testosterone 375 300 - 890 ng/dL [facility] Comment: (NOTE) REFERENCE INTERVAL: Testosterone, Adult Male Access complete set of age- and/or gender-specific reference intervals for this test in the [facility] Test Directory ([facility]). Testosterone Free 69 47 - 244 pg/mL [facility] Comment: (NOTE) INTERPRETIVE INFORMATION: ??Testosterone, Free Joel Stage IV ?35 - 169 pg/mL Joel Stage V ? 41 - 239 pg/mL The concentration of Free Testosterone is derived from a mathematical expression based on the constant for the binding of testosterone to Sex Hormone Binding Globulin (SHBG). Access complete set of age- and/or gender-specific reference intervals for this test in the [facility] Test Directory ([facility]). Sex Hormone Binding Globulin 33 (NOTE) REFERENCE INTERVAL: Sex Hormone Binding Globulin Access complete set of age- and/or gender-specif ic reference ??intervals for this test in the [facility] Test Directory ?? ([facility]) . 11 - 80 nmol/L [facility] Testosterone Free Percent 1.8 1.6 - 2.9 % [facility] Comment: (NOTE) Performed by [facility], [address] [id number] [email or web address], Da Fleming MD, Lab. Director 06/06/2019 10:0 0 AM CDT 06/06/2019 10:10 AM CDT Galen Jones DO LAB SEND OUT ORDERAB LES [facility] [address] * (ABNORMAL) LIPID PROFILE (06/06/2019 10:00 AM CDT) Cholesterol 184 0 - 200 MG/DL [facility] Triglycerides 180(H) 0 - 150 MG/DL [facility] HDL 32(L) 40 - 60 MG/DL [facility] LDL Cholesterol 116(H) 0 - 100 MG/DL [facility] LDL/HDL Ratio 3.63 [facility] VLDL, Calc 36(H) 0 - 35 MG/DL [facility] Blood 06/06/2019 10:0 0 AM CDT 06/06/2019 10:04 AM CDT Cody WORKMAN CHEMISTRY ORDERABLE S Performing Organization Address City/State/[facility] Co de Phone Number [facility] [address] * (ABNORMAL) COMPREHENSIVE METABOLIC PANEL (06/06/2019 10:00 AM CDT) Glucose 96 65 - 100 MG/DL [facility] Blood Urea Nitrogen 24(H) 7 - 18 MG/DL [facility] Creatinine 1.2 0.7 - 1.3 MG/DL [facility] Sodium 135(L) 136 - 145 MMOL/L [facility] Potassium 3.9 3.5 - 5.1 MMOL/L [facility] Chloride 97(L) 98 - 107 MMOL/L [facility] Co2 30 21 - 32 MMOL/L [facility] Calcium 9.1 8.5 - 10.1 MG/DL [facility] Osmolality 274 mOsm/L [facility] Protein Total 7.7 6.4 - 8.2 G/DL [facility] Albumin 3.9 3.4 - 5.0 G/DL [facility] A/G Ratio 1.0 [facility] Alkaline Phosphatase 58 46 - 116 U/L [facility] Alt (SGPT) 35 16 - 63 U/L [facility] AST(SGOT) 21 15 - 37 U/L [facility] Bilirubin, Total 0.9 0.2 - 1.0 MG/DL [facility] Est GFR >60 >60 ML/MIN/1. 73sq.m [facility] GFR Comment IF PATIENT IS , MULTIPLY RESULT BY 1.21 [facility] Blood 06/06/2019 10:0 0 AM CDT 06/06/2019 10:04 AM CDT Coyd WORKMAN CHEMISTRY ORDERABLE S [facility] [address] [place] [address] documented in this encounter Visit Diagnoses Diagnosis Decreased GFR Nonspecific abnormal results of kidney function study Dyslipidemia Other and unspecified hyperlipidemia documented in this encounter Care Teams Fruit Sorter Relationship Specialty Start Date End Date Cody Simms PA [address] [place] [address] PCP - General Physician Supervisor Pipe Joints 10/24/18 03/10/22 documented as of this encounter
--- OUTSIDE RECORDS SUMMARY | 2024-08-26 09:52 | XMS_ITS | Encounter Summary ---
Author Organization [facility] Address [address] [place] [address] Care Team Providers Care Local Bulk Driver Name Role Phone Haile Singh MD Primary Care Provider +1- [phone] Reason for Visit * Reason Comments Follow-up follow up labs Encounter Details Date Type Department Care Team (Late st Contact Info) Description 12/13/2017 2:30 PM CDT Office Visit [address] [address] Haile Singh MD [address] [place] [address] IGGY (generalized anxiety disorder) (Primary Dx); [...] SEND OUT ORDERA BLES Performing Organization Address [facility] Co de Phone Number [address] * (ABNORMAL) LIPID PROFILE (05/24/2018 11:58 AM CDT) Triglycerides 126 0 TO 150 mg/dL [facility] Cholesterol 184 0 TO 200 mg/dL [facility] HDL 29(L) 35 TO 60 mg/dL [facility] LDL Cholesterol 130(H) 0 TO 100 mg/dL [facility] VLDL, Calc 25.2 0.0 TO 35.0 mg/dL [facility] LDL/HDL Ratio 6.3(H) 3.0 TO 6.0 [facility] Blood 05/24/2018 11:5 8 AM CDT Haile Singh MD CHEMISTRY ORDERABLE S Performing Organization Address [facility] Number [address] * HEMOGLOBIN A1C (05/24/2018 11:58 AM CDT) Hemoglobin A1C 5.6 4.5 TO 6.2 % [facility] Blood 05/24/2018 11:5 8 AM CDT Haile Singh MD CHEMISTRY ORDERABLE S Performing Organization Address [facility] Co de Phone Number [address] * HEPATIC (LIVER) FUNCTION PANEL (05/24/2018 11:58 AM CDT) Protein Total 7.8 6.4 TO 8.2 mg/dL [facility] Albumin 3.9 3.4 TO 5.0 g/dL [facility] Globulin 3.9 2.4 TO 4.2 g/dL [facility] A/G Ratio 1.0 0.8 TO 2.0 [facility] Alkaline Phosphatase 65 46 TO 116 U/L [facility] Alt (SGPT) 32 16 TO 63 U/L [facility] AST(SGOT) 18 15 TO 37 U/L [facility] Bilirubin, Total 0.9 0.2 TO 1.0 mg/dL [facility] Bilirubin, Indirect 0.8 0.0 TO 1.3 mg/dL [facility] Bilirubin Direct 0.1 0.0 TO 0.3 mg/dL [facility] Blood 05/24/2018 11:5 8 AM CDT Haile Singh MD CHEMISTRY ORDERABLE S Performing Organization Address City/State/[facility] Co de Phone Number [address] documented in this encounter Visit Diagnoses Diagnosis IGGY (generalized anxiety disorder)- Primary Generalized anxiety disorder Hyperglycemia Other abnormal glucose Family history of diabetes mellitus Dyslipidemia Other and unspecified hyperlipidemia Hypovitaminosis D Unspecified vitamin D deficiency Medication management Encounter for long-term (current) use of other medications documented in this encounter Care Teams Local Bulk Driver Relationship Specialty Start Date End Date Haile Singh MD [address] [place] [address] PCP - General Family Medicine 10/13/13 09/22/18 documented as of this encounter
--- OUTSIDE RECORDS SUMMARY | 2024-08-26 09:52 | XMS_ITS | Encounter Summary ---
Author Organization [facility] Address [address] [place] [address] Care Team Providers Care Offset Platemaker Name Role Phone Joanna Mckeon NP Primary Care Provider +1- [phone] Reason for Visit * Reason Onset Date Comments Medication Refill 09/15/2017 Encounter Details Date Type Department Care Team (Late st Contact Info) Description 09/15/2017 Refill [facility] [address] [place] [address] Haile Singh MD [address] [place] [address] Medication Refill Social History Tobacco [...] if he could get an earlier appointment. RAL FARM HAND documented in this encounter Plan of Treatment Not on file documented as of this encounter Visit Diagnoses Not on filedocumented in this encounter Care Teams Offset Platemaker Relationship Specialty Start Date End Date Joanna Mckeon NP [facility] [address] [place] [address] PCP - General Physician Reeling Operator 08/31/23 documented as of this encounter
--- OUTSIDE RECORDS SUMMARY | 2024-08-26 09:52 | XMS_ITS | Encounter Summary ---
Author Organization [facility] Address [address] [place] [address] Care Team Providers Care Sandal Parts Assembler Name Role Phone Haile Singh MD Primary Care Provider +1- [phone] Reason for Visit * Reason Comments Sinus Problem Patient complains of cough, dry eyes, right ear and throat pain. sinus drainage Encounter Details Date Type Department Care Team (Late st Contact Info) Description 07/08/2017 1:15 PM CDT Office Visit [facility] [address] [place] [phone] Anders Alatorre, BUILDING CONSTRUCTION ESTIMATOR [address] [place] [address] Acute non-recurrent maxillary sinusitis (Primary [...] this encounter Progress Notes * Anders Alatorre BUILDING CONSTRUCTION ESTIMATOR - 07/08/2017 1:15 PM CDT CHIEF COMPLAINT: [...] electronically signed in the electronic medical record. COURSE STARTER documented in this encounter Plan of Treatment Not on file documented as of this encounter Visit Diagnoses Diagnosis Acute non-recurrent maxillary sinusitis- Primary documented in this encounter Care Teams Sandal Parts Assembler Relationship Specialty Start Date End Date Haile Singh MD [address] [place] [address] PCP - General Family Medicine 10/13/13 09/22/18 documented as of this encounter
--- OUTSIDE RECORDS SUMMARY | 2024-08-26 09:52 | XMS_ITS | Encounter Summary ---
Author Organization [facility] Address [address] [place] [address] Care Team Providers Care Maintenance Painter Name Role Phone Haile Singh MD Primary Care Provider +1- [phone] Reason for Visit * Reason Comments Results labs Encounter Details Date Type Department Care Team (Latest Contact Info) Description 06/10/2018 2:00 PM CDT Office Visit [facility] [address] [place] [address] Cody Simms, PA [address] [place] [address] Hypotestosteronemia (Primary Dx); Dyslipidemia; Hypovitaminosis [...] from us then having to drive to [place] to the anti aging clinic I agreed [...] SEND OUT ORDERA BLES Performing Organization Address [facility] Co de Phone Number [address] * HEMOGLOBIN A1C (09/07/2018 12:06 PM MAGNETIC OBSERVER) Hemoglobin A1C 5.6 4.5 TO 6.2 % [facility] Blood 09/07/2018 12:0 6 PM MAGNETIC OBSERVER Cody WORKMAN CHEMISTRY ORDERABLE S Performing Organization Address [facility] Co de Phone Number [address] * PSA SCREEN (09/07/2018 12:06 PM MAGNETIC OBSERVER) Pathologist [facility] Prostate Specific Antigen Total 0.8 0.1 TO 4.0 ng/mL [facility] Blood 09/07/2018 12:0 6 PM MAGNETIC OBSERVER Cody WORKMAN CHEMISTRY ORDERABLE S Performing Organization Address [facility] Co wa Phone Number [address] * TSH THIRD GENERATION (09/07/2018 12:06 PM MAGNETIC OBSERVER) Pathologist [facility] TSH High Sensitivity 0.68 0.30 TO 3.04 uIU/mL [facility] Blood 09/07/2018 12:0 6 PM MAGNETIC OBSERVER Cody WORKMAN CHEMISTRY ORDERABLE S Performing Organization Address [facility] Co wa Phone Number [address] * (ABNORMAL) CBC W AUTO DIFF (09/07/2018 12:06 PM MAGNETIC OBSERVER) Pathologist [facility] White Blood Cell Count 5.14 4.00 TO 11.00 K/uL [facility] Neutrophils 63.6 34.0 TO 67.9 % [facility] Lymphs 25.5 21.8 TO 53.1 % [facility] Monocytes 8.90 5.3 TO 12.2 % [facility] Eos 1.40 0.8 TO 7.0 % [facility] Basos 0.60 0.2 TO 1.2 % [facility] Neutrophils Absolute Count 3.27 1.78 TO 5.38 K/uL [facility] Lymphocytes Absolute Count 1.31(L) 1.32 TO 3.57 K/uL [facility] Monocytes Absolute Count 0.46 0.30 TO 0.82 K/uL [facility] Eosinophils Absolute Count 0.07 0.04 TO 0.54 K/uL [facility] Basophils Absolute Count 0.03 0.01 TO 0.08 K/uL [facility] Red Blood Cell Count 5.51 4.63 TO 6.08 M/uL [facility] Hemoglobin 16.3 13.7 TO 17.5 g/dL [facility] Hematocrit 49.1 40.1 TO 51.0 % [facility] Mean Corpuscular Volume 89.1 79.0 TO 92.2 [facility] Mean Corpuscular Hemoglobin 29.6 25.7 TO 32.2 pg [facility] Mean Corpuscular Hemoglobin Conc 33.2 32.3 TO 36.5 g/dL [facility] Red Cell Distribution Width 13.8 11.6 TO 14.4 % [facility] Platelet Count 231 130 TO 450 K/uL [facility] Mean Platelet Volume 9.80 8.1 TO 12.4 [facility] Blood 09/07/2018 12:0 6 PM MAGNETIC OBSERVER Cody WORKMAN HEMATOLOGY ORDERABL ES Performing Organization Address City/State/[facility] Co de Phone Number [facility] [address] * (ABNORMAL) COMPREHENSIVE METABOLIC PANEL (09/07/2018 12:06 PM MAGNETIC OBSERVER) Glucose 102(H) 65 TO 100 mg/dL [facility] Blood Urea Nitrogen 32(H) 7 TO 18 mg/dL [facility] Creatinine 1.3 0.7 TO 1.3 mg/dL [facility] Sodium 142 136 TO 145 mmol/L [facility] Potassium 4.4 3.5 TO 5.1 mmol/L [facility] Chloride 103 98 TO 107 mmol/L [facility] Co2 30 21 TO 32 mmol/L [facility] Calcium 8.9 8.5 TO 10.1 mg/dL [facility] Osmolality 290 273 TO 304 mOsm/L [facility] Protein Total 7.7 6.4 TO 8.2 mg/dL [facility] Albumin 3.9 3.4 TO 5.0 g/dL [facility] Globulin 3.8 2.4 TO 4.2 g/dL [facility] A/G Ratio 1.0 0.8 TO 2.0 [facility] Alkaline Phosphatase 67 46 TO 116 U/L [facility] Alt (SGPT) 38 16 TO 63 U/L [facility] AST(SGOT) 22 15 TO 37 U/L [facility] Bilirubin, Total 1.0 0.2 TO 1.0 mg/dL [facility] Est GFR 63 60 TO 150 mL/min/1.7 3m*2 [facility] Blood 09/07/2018 12:0 6 PM MAGNETIC OBSERVER Cody WORKMAN CHEMISTRY ORDERABLE S Performing Organization Address [facility] Co de Phone Number [address] * (ABNORMAL) LIPID PROFILE (09/07/2018 12:06 PM MAGNETIC OBSERVER) Triglycerides 78 0 TO 150 mg/dL [facility] Cholesterol 177 0 TO 200 mg/dL [facility] HDL 36 35 TO 60 mg/dL [facility] LDL Cholesterol 125(H) 0 TO 100 mg/dL [facility] VLDL, Calc 15.6 0.0 TO 35.0 mg/dL [facility] LDL/HDL Ratio 4.9 3.0 TO 6.0 [facility] Blood 09/07/2018 12:0 6 PM MAGNETIC OBSERVER Cody WORKMAN CHEMISTRY ORDERABLE S Performing Organization Address City/[facility] Co de Phone Number [address] documented in this encounter Visit Diagnoses Diagnosis Hypotestosteronemia- Primary Dyslipidemia Other and unspecified hyperlipidemia Hypovitaminosis D Unspecified vitamin D deficiency Hyperglycemia Other abnormal glucose Medication management Encounter for long-term (current) use of other medications Screening PSA (prostate specific antigen) Special screening for malignant neoplasm of prostate documented in this encounter Care Teams Maintenance Painter Relationship Specialty Start Date End Date Haile Singh MD [address] [place] [address] PCP - General Family Medicine 10/13/13 09/22/18 documented as of this encounter
--- OUTSIDE RECORDS SUMMARY | 2024-08-26 09:52 | XMS_ITS | Encounter Summary ---
Author Organization [facility] Address [address] [place] [address] Care Team Providers Care Electricity Trading Analyst Name Role Phone Cody Simms Primary Care Provider +1- [phone] Reason for Visit * Reason Comments Medication Refill Encounter Details Date Type Department Care Team ([facility] st Contact Info) Description 05/11/2019 Refill [facility] [address] [place] [address] Cody Simms PA [address] [place] [address] Medication Refill Social History Tobacco Use Types [...] on filedocumented in this encounter Care Teams Electricity Trading Analyst Relationship Specialty Start Date End Date Cody Simms PA [address] [place] [address] PCP - General Physician Bright Cutter 10/24/18 03/10/22 documented as of this encounter
--- OUTSIDE RECORDS SUMMARY | 2024-08-26 09:52 | XMS_ITS | Encounter Summary ---
Author Organization [facility] Address [address] [place] [address] Care Team Providers Care Business Continuity Global Director Name Role Phone Haile Singh MD Primary Care Provider +1- [phone] Encounter Details Date Type Department Care Team (Late st Contact Info) Description 12/11/2017 Orders Only [facility] [address] [place] [phone] Haile Singh MD [address] [place] [address] Medication management; Dyslipidemia; Thyroid disorder screen; [...] 25 HYDROXY (12/11/2017 12:20 PM CDT) Pathologist [facility] Vit D 25 Hydroxy 32.4 30.0 TO 100.0 ng/mL [facility] 12/11/2017 12:2 0 PM CDT Haile Singh MD CHEMISTRY ORDERABLE S Performing Organization Address [facility]/ZIP Co de Phone Number [address] * TSH THIRD GENERATION (12/11/2017 12:20 PM CDT) Pathologist [facility] TSH High Sensitivity 0.71 0.30 TO 3.04 uIU/mL [facility] Blood 12/11/2017 12:2 0 PM CDT Haile Singh MD CHEMISTRY ORDERABLE S Performing Organization Address [facility]/ZIP Co de Phone Number [address] * (ABNORMAL) LIPID PROFILE (12/11/2017 12:20 PM CDT) Pathologist [facility] Triglycerides 383(H) 0 TO 150 mg/dL [facility] Cholesterol 238(H) 0 TO 200 mg/dL [facility] HDL 34(L) 35 TO 60 mg/dL [facility] LDL Cholesterol 127(H) 0 TO 100 mg/dL [facility] VLDL, Calc 76.6(H) 0.0 TO 35.0 mg/dL [facility] LDL/HDL Ratio 7.0(H) 3.0 TO 6.0 [facility] Comment: LDL is not valid when triglyceride is greater than 400 mg/dL Blood 12/11/2017 12:2 0 PM CDT Haile Singh MD CHEMISTRY ORDERABLE S [address] * (ABNORMAL) COMPREHENSIVE METABOLIC PANEL (12/11/2017 12:20 PM CDT) Pathologist [facility] Glucose 102(H) 65 TO 100 mg/dL [facility] Blood Urea Nitrogen 21(H) 7 TO 18 mg/dL [facility] Creatinine 1.2 0.7 TO 1.3 mg/dL [facility] Sodium 140 136 TO 145 mmol/L [facility] Potassium 4.0 3.5 TO 5.1 mmol/L [facility] Chloride 100 98 TO 107 mmol/L [facility] Co2 30 21 TO 32 mmol/L [facility] Calcium 8.7 8.5 TO 10.1 mg/dL [facility] Osmolality 283 273 TO 304 mOsm/L [facility] Protein Total 7.5 6.4 TO 8.2 mg/dL [facility] Albumin 3.7 3.4 TO 5.0 g/dL [facility] Globulin 3.8 2.4 TO 4.2 g/dL [facility] A/G Ratio 1.0 0.8 TO 2.0 [facility] Alkaline Phosphatase 80 46 TO 116 U/L [facility] Alt (SGPT) 52 16 TO 63 U/L [facility] AST(SGOT) 25 15 TO 37 U/L [facility] Bilirubin, Total 0.6 0.2 TO 1.0 mg/dL [facility] Est GFR 70 60 TO 150 mL/min/1.7 3m*2 [facility] Comment: *THE GFR IS NOT APPLICABLE FOR PEDIATRIC PATIENTS, NOR THOSE >70 YEARS OLD. GFR NORMAL RANGE >60 mL/min Blood 12/11/2017 12:2 0 PM CDT Haile Singh MD CHEMISTRY ORDERABLE S [address] * (ABNORMAL) CBC W AUTO DIFF (12/11/2017 12:20 PM CDT) White Blood Cell Count 6.79 4.00 TO 11.00 K/uL [facility] Neutrophils 67.0 34.0 TO 67.9 % [facility] Lymphs 21.4(L) 21.8 TO 53.1 % [facility] Monocytes 9.10 5.3 TO 12.2 % [facility] Eos 1.90 0.8 TO 7.0 % [facility] Basos 0.60 0.2 TO 1.2 % [facility] Neutrophils Absolute Count 4.55 1.78 TO 5.38 K/uL [facility] Lymphocytes Absolute Count 1.45 1.32 TO 3.57 K/uL [facility] Monocytes Absolute Count 0.62 0.30 TO 0.82 K/uL [facility] Eosinophils Absolute Count 0.13 0.04 TO 0.54 K/uL [facility] Basophils Absolute Count 0.04 0.01 TO 0.08 K/uL [facility] Red Blood Cell Count 4.89 4.63 TO 6.08 M/uL [facility] Hemoglobin 15.0 13.7 TO 17.5 g/dL [facility] Hematocrit 43.7 40.1 TO 51.0 % [facility] Mean Corpuscular Volume 89.4 79.0 TO 92.2 [facility] Mean Corpuscular Hemoglobin 30.7 25.7 TO 32.2 [facility] Mean Corpuscular Hemoglobin Conc 34.3 32.3 TO 36.5 g/dL [facility] Red Cell Distribution Width 12.6 11.6 TO 14.4 % [facility] Platelet Count 280 130 TO 450 K/uL [facility] Mean Platelet Volume 9.30 8.1 TO 12.4 [facility] Comment:.................... Blood 12/11/2017 12:2 0 PM CDT Haile Singh MD HEMATOLOGY ORDERABL ES [address] documented in this encounter Visit Diagnoses Diagnosis Medication management Encounter for long-term (current) use of other medications Dyslipidemia Other and unspecified hyperlipidemia Thyroid disorder screen Screening for thyroid disorder Hypovitaminosis D Unspecified vitamin D deficiency documented in this encounter Care Teams Business Continuity Global Director Relationship Specialty Start Date End Date Haile Singh MD [address] [place] [address] [place] [address] PCP - General Family Medicine 10/13/13 09/22/18 documented as of this encounter
--- OUTSIDE RECORDS SUMMARY | 2024-08-26 09:52 | XMS_ITS | Encounter Summary ---
Author Organization [facility] Address [address] [place] [address] Care Team Providers Care Ice Carver Name Role Phone Cody Simms Primary Care Provider +1- [phone] Reason for Visit * Reason Comments Medication Refill Encounter Details Date Type Department Care Team (Late st Contact Info) Description 03/07/2018 Refill [facility] Practice [address] [place] [address] Haile Singh MD [address] [place] [address] Medication Refill Social History Tobacco [...] on filedocumented in this encounter Care Teams Ice Carver Relationship Specialty Start Date End Date Cody Simms PA [address] [place] [address] PCP - General Physician Paralegal Supervisor 10/24/18 03/10/22 documented as of this encounter
--- OUTSIDE RECORDS SUMMARY | 2024-08-26 09:52 | XMS_ITS | Encounter Summary ---
Author Organization [facility] Address [address] [place] [address] Care Team Providers Care Cooker Sulfite Name Role Phone Cody Simms Primary Care Provider +1- [phone] Reason for Visit * Reason Comments Medication Refill Encounter Details Date Type Department Care Team ([facility] st Contact Info) Description 11/21/2018 Refill [facility] Practice [address] [place] [address] Cody Simms PA [address] [place], [place] [phone] Medication Refill Social History Tobacco Use Types [...] on filedocumented in this encounter Care Teams Cooker Sulfite Relationship Specialty Start Date End Date Cody Simms PA [address] [place] [address] PCP - General Physician Bobbin Inspector 10/24/18 03/10/22 documented as of this encounter
--- OUTSIDE RECORDS SUMMARY | 2024-08-26 09:52 | XMS_ITS | Encounter Summary ---
Author Organization [facility] Address [address] [place] [address] Care Team Providers Care Medical Receptionist Assistant Name Role Phone Haile Singh MD Primary Care Provider +1- [phone] Reason for Visit * Reason Comments Follow-up Here for 2 month fol low up per Niya. Encounter Details Date Type Department Care Team (Late st Contact Info) Description 03/02/2017 11:15 AM CDT Office Visit [address] [phone] Haile Singh MD [address] [place] [address] IGGY (generalized anxiety disorder) (Primary Dx); [...] MD LAB SEND OUT MALACHIA MAGDALENA [address] documented in this encounter Visit Diagnoses Diagnosis IGGY (generalized anxiety disorder)- Primary Generalized anxiety disorder Hypotestosteronism Other testicular hypofunction Hypovitaminosis D Unspecified vitamin D deficiency Dyslipidemia Other and unspecified hyperlipidemia Gastroesophageal reflux disease, esophagitis presence not specified documented in this encounter Care Teams Medical Receptionist Assistant Relationship Specialty Start Date End Date Haile Singh MD [address] [place] [address] PCP - General Family Medicine 10/13/13 09/22/18 documented as of this encounter
--- OUTSIDE RECORDS SUMMARY | 2024-08-26 09:52 | XMS_ITS | Encounter Summary ---
Author Organization [facility] Address [address] [place] [address] Care Team Providers Care Kaiawhina Kohanga Reo Name Role Phone Haile Singh MD Primary Care Provider +1- [phone] Encounter Details Date Type Department Care Team (Late st Contact Info) Description 03/01/2017 Orders Only [facility] Practice [address] [place] [address] Haile Singh MD [address] [place] [address] Fatigue, unspecified type; Medication management; Lipid [...] MD CHEMISTRY ORDERABLE S Performing Organization Address [facility] Co de Phone Number [address] * VITAMIN D 25 HYDROXY (03/02/2017) Haile Singh MD CHEMISTRY ORDERABLE S Performing Organization Address [facility] Co de Phone Number [address] * TSH THIRD GENERATION (03/01/2017) Blood Haile Singh MD CHEMISTRY ORDERABLE S Performing Organization Address [facility] Co de Phone Number [address] * LIPID PROFILE (03/01/2017) Blood Haile Singh MD CHEMISTRY ORDERABLE S Performing Organization Address [facility] Co de Phone Number [address] * COMPREHENSIVE METABOLIC PANEL (03/01/2017) Blood Haile Singh MD CHEMISTRY ORDERABLE S Performing Organization Address [facility] Co de Phone Number [address] * CBC W AUTO DIFF (03/01/2017) Blood Haile Singh MD HEMATOLOGY ORDERABL ES Performing Organization Address [facility] Co de Phone Number [address] documented in this encounter Visit Diagnoses Diagnosis Fatigue, unspecified type Medication management Encounter for long-term (current) use of other medications Lipid screening Screening for lipoid disorders Thyroid disorder screen Screening for thyroid disorder Hypovitaminosis D Unspecified vitamin D deficiency documented in this encounter Care Teams Kaiawhina Kohanga Reo Relationship Specialty Start Date End Date Haile Singh MD [address] [place] [address] PCP - General Family Medicine 10/13/13 09/22/18 documented as of this encounter
--- OUTSIDE RECORDS SUMMARY | 2024-08-26 09:52 | XMS_ITS | Encounter Summary ---
Author Organization [facility] Address [address] [place] [address] Care Team Providers Care Clinical Care Coordinator Name Role Phone Cody Simms Primary Care Provider +[phone] Reason for Visit * Reason Comments Consult No complaints * Referral (Routine) - Closed Specialty Diagnoses / Procedures Referred By Contac t Referred To Contact Nephrology Diagnoses Decreased GFR Cody Simms PA [address] [place] [address] Babatunde Oliva MD [address] [place] [address] Referral ID Status Reason Start Date Expiration Date V isits Requested Visits Authorized [id number] Closed Consult 09/21/2018 1 1 Encounter Details Date Type Department Care Team (Late st Contact Info) Description 10/24/2018 8:45 AM LENS GAUGER Initial consult [facility] Nephrology [address] [place] [address] Babatunde Oliva MD [address] [place] [address] Azotemia (Primary Dx); Dyslipidemia Social [...] Comments Blood Pressure 132/80 10/24/2018 8:42 AM LENS GAUGER Pulse 81 10/24/2018 8:42 AM LENS GAUGER Temperature - - Respiratory Rate - - Oxygen Saturation 96% 10/24/2018 8:42 AM LENS GAUGER Inhaled Oxygen Concentration - - Weight 84.6 kg (186 lb 9.6 oz) 10/24/2018 8:42 A M LENS GAUGER Height 177.8 cm (5' 10 ) 10/24/2018 8:42 AM LENS GAUGER Body Mass Index 26.77 10/24/2018 8:42 AM LENS GAUGER documented in this encounter Patient Instructions * Patient Instructions* Babatunde Oliva MD - 10/24/2018 8:45 AM LENS GAUGER Hyperlipidemia JOB FORWARDER: Hyperlipidemia is a high level of lipids [...] ask them during your visits. ?? 2018 [employer] Information is for End User's use only and may not be sold, redistributed or otherwise used for commercial purposes. All illustrations and images included in CareNotes?? are the copyrighted property of [employer] or [employer]. The above information is an computer aide only. It is not intended as medical advice for individual conditions or treatments. Talk to your doctor, nurse or pharmacist before following any medical regimen to see if it is safe and effective for you. GAUGER documented in this encounter Progress Notes * Babatunde Oliva MD - 10/24/2018 8:45 AM CST Images from the original note were not included. OUT-PATIENT CONSULT [facility] NEPHROLOGY DEMOGRAPHICS: Name: John Veliz Age: 48 [...] or tenderness. Skin: No rash or lesions. JUNIOR ESTIMATOR: Grossly intact. Moving all the 4 extremities. Not a complete examination. LABS: ABS: IRON: No results for input(s): IRON in the last 82694 hours. TIBC: No results for input(s): TIBC in the last 22747 hours. FERRITN: No results for input(s): FERRITIN in the last 91535 hours. No results found for: [id number] Lab Results Component Value Date CALCIUM 8.9 09/07/2018 Vitamin D 25 Hydroxy: Recent Labs Lab 12/11/17 1220 [id number] 32.4 Urinalysis: Recent Labs Lab 01/05/14 1646 [...] Lab 09/07/18 1206 05/24/18 1158 12/11/17 1220 [id number] -- -- 32.4 CHOL 177 184 238 TRIG 78 126 383 No results for input(s): URICACID in the last 89609 hours. No results found for: BNP, CKTOTAL [...] the electronic medical record. Babatunde Oliva MD [facility] NEPHROLOGY Service date: 8:51 AM 10/24/2018 GAUGER documented in this encounter Plan of Treatment Not on file documented as of this encounter Visit Diagnoses Diagnosis Azotemia- Primary Other abnormal blood chemistry Dyslipidemia Other and unspecified hyperlipidemia documented in this encounter Care Teams Clinical Care Coordinator Relationship Specialty Start Date End Date Cody Simms PA [address] [place] [address] PCP - General Physician Cutting Table Operator First 10/24/18 03/10/22 documented as of this encounter
--- OUTSIDE RECORDS SUMMARY | 2024-08-26 09:52 | XMS_ITS | Encounter Summary ---
Author Organization [facility] Address [address] [place] [address] Care Team Providers Care Cork Molder Name Role Phone Haile Singh MD Primary Care Provider +1- [phone] Reason for Visit * Reason Onset Date Comments Medication Refill 04/29/2017 Encounter Details Date Type Department Care Team (Late st Contact Info) Description 04/29/2017 Refill [facility] Family Practice [address] [place] [phone] Haile Singh MD [address] [place] [phone] Medication Refill Social History Tobacco Use Types [...] on filedocumented in this encounter Care Teams Cork Molder Relationship Specialty Start Date End Date Haile Singh MD [address] [place] [phone] PCP - General Family Medicine 10/13/13 09/22/18 documented as of this encounter
--- OUTSIDE RECORDS SUMMARY | 2024-08-26 09:52 | XMS_ITS | Encounter Summary ---
Author Organization [facility] Address [address] [place] [address] Care Team Providers Care Director Private Name Role Phone Haile Singh MD Primary Care Provider [phone] [phone] Reason for Visit * Reason Comments Results labs states he is fe eling better brought with him his scripts , is not seeing the specialist at [facility] anymore for his testosterone Encounter Details Date Type Department Care Team (Latest Contact Info) Description 09/16/2018 1:30 PM RADAR AIR TRAFFIC CONTROLLER Office Visit [facility] [address] [place] [address] Cody Simms, PA [address] [place] [address] Hypotestosteronemia (Primary Dx); Decreased GFR [...] Comments Blood Pressure 124/80 09/16/2018 1:38 PM RADAR AIR TRAFFIC CONTROLLER Pulse 71 09/16/2018 1:38 PM RADAR AIR TRAFFIC CONTROLLER Temperature 36.6 ??C (97.8 ??F) 09/16/2018 1:38 PM CS T Respiratory Rate 20 09/16/2018 1:38 PM RADAR AIR TRAFFIC CONTROLLER Oxygen Saturation 98% 09/16/2018 1:38 PM RADAR AIR TRAFFIC CONTROLLER Inhaled Oxygen Concentration - - Weight 82.6 kg (182 lb) 09/16/2018 1:38 PM RADAR AIR TRAFFIC CONTROLLER Height 177.8 cm (5' 10 ) 09/16/2018 1:38 PM RADAR AIR TRAFFIC CONTROLLER Body Mass Index 26.11 09/16/2018 1:38 PM RADAR AIR TRAFFIC CONTROLLER documented in this encounter Progress Notes * Cody Simms - 09/16/2018 1:30 PM CST CHIEF COMPLAINT: Chief Complaint Patient presents with ??? Results labs states he is feeling better brought with him his scripts , is not seeing the specialist at [facility] anymore for his testosterone SUBJECTIVE: He presents [...] allergies listed in the above medical record R AIR TRAFFIC CONTROLLER documented in this encounter Plan of Treatment Not on file documented as of this encounter Results * TESTOSTERONE TOTAL FREE (12/02/2018) Blood Cody WORKMAN CHEMISTRY ORDERABLE S Performing Organization Address City/State/[facility] Co de Phone Number [address] documented in this encounter Visit Diagnoses Diagnosis Hypotestosteronemia- Primary Decreased GFR Nonspecific abnormal results of kidney function study documented in this encounter Care Teams Director Private Relationship Specialty Start Date End Date Haile Singh MD [address] [place] [address] PCP - General Family Medicine 10/13/13 09/22/18 documented as of this encounter
--- OUTSIDE RECORDS SUMMARY | 2024-08-26 09:52 | XMS_ITS | Encounter Summary ---
Author Organization [facility] Address [address] [place] [address] Care Team Providers Care Brand Mgr Name Role Phone Cody Simms Primary Care Provider [phone]- [phone] Reason for Visit * Reason Comments Medication Refill Encounter Details Date Type Department Care Team (Late st Contact Info) Description 11/09/2016 Refill [facility] [address] [place] [address] Haile Singh MD [address] [place] [address] Medication Refill Social History Tobacco [...] on filedocumented in this encounter Care Teams Brand Mgr Relationship Specialty Start Date End Date Cody Simms PA [address] [place] [id number] PCP - General Physician Weather Teacher 10/24/18 03/10/22 documented as of this encounter
--- OUTSIDE RECORDS SUMMARY | 2024-08-26 09:52 | XMS_ITS | Encounter Summary ---
Author Organization [facility] Address [address] [place] [address] Care Team Providers Care Clothing Patternmaker Name Role Phone Haile Singh MD Primary Care Provider [phone]- [phone] Encounter Details Date Type Department Care Team (Late st Contact Info) Description 09/07/2018 Orders Only [facility] [address] [place] [address] Coyd Simms, PA [address] [place] [address] Medication management; Dyslipidemia; Hyperglycemia; Hypovitaminosis [...] TSH THIRD GENERATION Routine 09/07/2018 12:06 PM BICYCLE SERVICE TECHNICIAN Hypotestosteronemi a PSA TOTAL, SCREEN Routine 09/07/2018 12: 06 PM BICYCLE SERVICE TECHNICIAN Screening PSA (prostate specific antigen) CBC W AUTO DIFF Routine 09/07/2018 12:06 PM BICYCLE SERVICE TECHNICIAN Hypovitaminosis D HEMOGLOBIN A1C Routine 09/07/2018 12:06 PM BICYCLE SERVICE TECHNICIAN Hyperglycemia LIPID PROFILE Routine 09/07/2018 12:06 PM BICYCLE SERVICE TECHNICIAN Dyslipidemia COMPREHENSIVE METABOLIC PANEL Routine 09/07/2018 12:06 PM BICYCLE SERVICE TECHNICIAN Hyperglycemia documented in this encounter Results * TESTOSTERONE, TOTAL AND FREE, SERUM (09/08/2018) Cody WORKMAN LAB SEND OUT ORDERA BLES Performing Organization Address [facility] Co de Phone Number [address] * HEMOGLOBIN A1C (09/07/2018 12:06 PM BICYCLE SERVICE TECHNICIAN) Pathologist [facility] Hemoglobin A1C 5.6 4.5 TO 6.2 % [facility] Blood 09/07/2018 12:0 6 PM BICYCLE SERVICE TECHNICIAN Cody WORKMAN CHEMISTRY ORDERABLE S Performing Organization Address [facility] Co de Phone Number [address] * PSA SCREEN (09/07/2018 12:06 PM BICYCLE SERVICE TECHNICIAN) Pathologist [facility] Prostate Specific Antigen Total 0.8 0.1 TO 4.0 ng/mL [facility] Blood 09/07/2018 12:0 6 PM BICYCLE SERVICE TECHNICIAN Cody WORKMAN CHEMISTRY ORDERABLE S Performing Organization Address City/[facility]/ZIP Co de Phone Number [address] * TSH THIRD GENERATION (09/07/2018 12:06 PM BICYCLE SERVICE TECHNICIAN) Pathologist [facility] TSH High Sensitivity 0.68 0.30 TO 3.04 uIU/mL [facility] Blood 09/07/2018 12:0 6 PM BICYCLE SERVICE TECHNICIAN Cody WORKMAN CHEMISTRY ORDERABLE S [address] * (ABNORMAL) CBC W AUTO DIFF (09/07/2018 12:06 PM BICYCLE SERVICE TECHNICIAN) White Blood Cell Count 5.14 4.00 TO 11.00 K/uL [facility] Neutrophils 63.6 34.0 TO 67.9 % [facility] Lymphs 25.5 21.8 TO 53.1 % [facility] Monocytes 8.90 5.3 TO 12.2 % [facility] Eos 1.40 0.8 TO 7.0 % [facility] Basos 0.60 0.2 TO 1.2 % [facility] Neutrophils Absolute Count 3.27 1.78 TO 5.38 K/uL [facility] Lymphocytes Absolute Count 1.31(L) 1.32 TO 3.57 K/uL [facility] Monocytes Absolute Count 0.46 0.30 TO 0.82 K/uL [facility] Eosinophils Absolute Count 0.07 0.04 TO 0.54 K/uL [facility] Basophils Absolute Count 0.03 0.01 TO 0.08 K/uL [facility] Red Blood Cell Count 5.51 4.63 TO 6.08 M/uL [facility] Hemoglobin 16.3 13.7 TO 17.5 g/dL [facility] Hematocrit 49.1 40.1 TO 51.0 % [facility] Mean Corpuscular Volume 89.1 79.0 TO 92.2 [facility] Mean Corpuscular Hemoglobin 29.6 25.[address] [facility] Mean Corpuscular Hemoglobin Conc 33.2 32.3 TO 36.5 g/dL [facility] Red Cell Distribution Width 13.8 11.6 TO 14.4 % [facility] Platelet Count 231 130 TO 450 K/uL [facility] Mean Platelet Volume 9.80 8.1 TO 12.4 [facility] Blood 09/07/2018 12:0 6 PM BICYCLE SERVICE TECHNICIAN Cody WORKMAN HEMATOLOGY ORDERABL ES [address] * (ABNORMAL) COMPREHENSIVE METABOLIC PANEL (09/07/2018 12:06 PM BICYCLE SERVICE TECHNICIAN) Glucose 102(H) 65 TO 100 mg/dL [facility] Blood Urea Nitrogen 32(H) 7 TO 18 mg/dL [facility] Creatinine 1.3 0.7 TO 1.3 mg/dL [facility] Sodium 142 136 TO 145 mmol/L [facility] Potassium 4.4 3.5 TO 5.1 mmol/L [facility] Chloride 103 98 TO 107 mmol/L [facility] Co2 30 21 TO 32 mmol/L [facility] Calcium 8.9 8.5 TO 10.1 mg/dL [facility] Osmolality 290 273 TO 304 mOsm/L [facility] Protein Total 7.7 6.4 TO 8.2 mg/dL [facility] Albumin 3.9 3.4 TO 5.0 g/dL [facility] Globulin 3.8 2.4 TO 4.2 g/dL [facility] A/G Ratio 1.[address] [facility] Alkaline Phosphatase 67 46 TO 116 U/L [facility] Alt (SGPT) 38 16 TO 63 U/L [facility] AST(SGOT) 22 15 TO 37 U/L [facility] Bilirubin, Total 1.0 0.2 TO 1.0 mg/dL [facility] Est GFR 63 60 TO 150 mL/min/1.7 3m*2 [facility] Blood 09/07/2018 12:0 6 PM BICYCLE SERVICE TECHNICIAN Cody WORKMAN CHEMISTRY ORDERABLE S Performing Organization Address City/[facility] Co de Phone Number [address] * (ABNORMAL) LIPID PROFILE (09/07/2018 12:06 PM BICYCLE SERVICE TECHNICIAN) Triglycerides 78 0 TO 150 mg/dL [facility] Cholesterol 177 0 TO 200 mg/dL [facility] HDL 36 35 TO 60 mg/dL [facility] LDL Cholesterol 125(H) 0 TO 100 mg/dL [facility] VLDL, Calc 15.6 0.0 TO 35.0 mg/dL [facility] LDL/HDL Ratio 4.9 3.0 TO 6.0 [facility] Blood 09/07/2018 12:0 6 PM BICYCLE SERVICE TECHNICIAN Cody WORKMAN CHEMISTRY ORDERABLE S Performing Organization Address City/State/[facility] Co de Phone Number [address] documented in this encounter Visit Diagnoses Diagnosis Medication management Encounter for long-term (current) use of other medications Dyslipidemia Other and unspecified hyperlipidemia Hyperglycemia Other abnormal glucose Hypovitaminosis D Unspecified vitamin D deficiency Hypotestosteronemia Screening PSA (prostate specific antigen) Special screening for malignant neoplasm of prostate documented in this encounter Care Teams Clothing Patternmaker Relationship Specialty Start Date End Date Haile Singh MD [address] [place] [address] PCP - General Family Medicine 10/13/13 09/22/18 documented as of this encounter
--- OUTSIDE RECORDS SUMMARY | 2024-08-26 09:52 | XMS_ITS | Encounter Summary ---
Author Organization [facility] Address [address] [place] [address] Care Team Providers Care Grain Combiner Name Role Phone Haile Singh MD Primary Care Provider +1- [phone] Reason for Visit * Reason Onset Date Comments Medication Refill 03/07/2018 Encounter Details Date Type Department Care Team (Late st Contact Info) Description 03/07/2018 Refill [facility] [address] [place] [phone] Haile Singh MD [address] [place] [address] Medication Refill Social History Tobacco [...] on filedocumented in this encounter Care Teams Grain Combiner Relationship Specialty Start Date End Date Haile Singh MD [address] [place], [place] [id number] PCP - General Family Medicine 10/13/13 09/22/18 documented as of this encounter
--- OUTSIDE RECORDS SUMMARY | 2024-08-26 09:52 | XMS_ITS | Encounter Summary ---
Author Organization [facility] Address [address] [place] [address] Care Team Providers Care Bowl Turner Name Role Phone Cody Simms Primary Care Provider +1- [phone] Reason for Visit * Reason Comments Medication Refill Encounter Details Date Type Department Care Team (Late st Contact Info) Description 04/30/2017 Refill [facility] [address] [place] [address] Haile Singh MD [address] [place] [address] Medication Refill Social History Tobacco [...] on filedocumented in this encounter Care Teams Bowl Turner Relationship Specialty Start Date End Date Cody Simms PA [address] [place] [id number] PCP - General Physician Blending Kettle Tender 10/24/18 03/10/22 documented as of this encounter
--- OUTSIDE RECORDS SUMMARY | 2024-08-26 09:53 | XMS_ITS | Encounter Summary ---
Author Organization [facility] Address [address] [place] [address] Care Team Providers Care Gravity Prospecting Operator Helper Name Role Phone Haile Singh MD Primary Care Provider +1- [phone] Reason for Visit * Reason Onset Date Comments Medication Refill 08/08/2014 xanax 0.5 mg o ne tid prn # 75 vit d 50,000 one every week Encounter Details Date Type Department Care Team (Late st Contact Info) Description 08/08/2014 Refill [facility] [address] [place] [phone] Haile Singh MD [address] [place] [address] Medication Refill (xanax 0.5 mg one [...] on filedocumented in this encounter Care Teams Gravity Prospecting Operator Helper Relationship Specialty Start Date End Date Haile Singh MD [address] [place] [address] PCP - General Family Medicine 10/13/13 09/22/18 documented as of this encounter
--- OUTSIDE RECORDS SUMMARY | 2024-08-26 09:53 | XMS_ITS | Encounter Summary ---
Author Organization [facility] Address [address] [place] [address] Care Team Providers Care Volunteer Services Specialist Name Role Phone Cody Simms Primary Care Provider +1- [phone] Reason for Visit * Reason Comments Medication Refill Encounter Details Date Type Department Care Team (Late st Contact Info) Description 03/13/2016 Refill [facility] [address] [place] [address] Haile Singh MD [address] [place] [address] Medication Refill Social History Tobacco [...] on filedocumented in this encounter Care Teams Volunteer Services Specialist Relationship Specialty Start Date End Date Cody Simms PA [address] [place] [address] PCP - General Physician System Controller 10/24/18 03/10/22 documented as of this encounter
--- OUTSIDE RECORDS SUMMARY | 2024-08-26 09:53 | XMS_ITS | Encounter Summary ---
Author Organization [facility] Address [address] [place] [address] Care Team Providers Care Canal Tender Name Role Phone Haile Singh MD Primary Care Provider +1- [phone] Reason for Visit * Reason Comments Medication Refill Encounter Details Date Type Department Care Team ([facility] st Contact Info) Description 08/09/2014 8:00 AM CHIMNEY BUILDER HELPER Office Visit [facility] [address] [place] [address] Hola Thomas PA [address] [place] [address] Anxiety (Primary Dx); Panic attacks Social History [...] Comments Blood Pressure 142/70 08/09/2014 8:22 AM CHIMNEY BUILDER HELPER Pulse 100 08/09/2014 8:22 AM CHIMNEY BUILDER HELPER Temperature 36.3 ??C (97.3 ??F) 08/09/2014 8:22 AM CS T Respiratory Rate 18 08/09/2014 8:22 AM CHIMNEY BUILDER HELPER Oxygen Saturation 94% 08/09/2014 8:22 AM CHIMNEY BUILDER HELPER Inhaled Oxygen Concentration - - Weight 65.3 kg (144 lb) 08/09/2014 8:22 AM CHIMNEY BUILDER HELPER Height 177.8 cm (5' 10 ) 08/09/2014 8:22 AM CHIMNEY BUILDER HELPER Body Mass Index 20.66 08/09/2014 8:22 AM CHIMNEY BUILDER HELPER documented in this encounter Patient Instructions * Patient Instructions* Hola Thomas PA - 08/09/2014 8:37 AM CHIMNEY BUILDER HELPER Anxiety WHAT YOU SHOULD KNOW: Anxiety is [...] feel dizzy, lightheaded, or faint. ?? 2013 [employer]. Information is for End User's use only and may not be sold, redistributed or otherwise used for commercial purposes. All illustrations and images included in CareNotes?? are the copyrighted property of [employer]. or [employer] The above information is an rehabilitation therapy aide only. It is not intended as medical advice for individual conditions or treatments. Talk to your doctor, nurse or pharmacist before following any medical regimen to see if it is safe and effective for you. NEY BUILDER HELPER documented in this encounter Progress Notes * [...] the next morning. I did speak with [facility] after his last appointment and was [...] allergies listed in the above medical record NEY BUILDER HELPER documented in this encounter Plan of Treatment Not on file documented as of this encounter Visit Diagnoses Diagnosis Anxiety- Primary Anxiety state, unspecified Panic attacks Panic disorder without agoraphobia documented in this encounter Care Teams Canal Tender Relationship Specialty Start Date End Date Haile Singh MD [address] [place] [address] PCP - General Family Medicine 10/13/13 09/22/18 documented as of this encounter
--- OUTSIDE RECORDS SUMMARY | 2024-08-26 09:53 | XMS_ITS | Encounter Summary ---
Author Organization [facility] Address [address] [place] [address] Care Team Providers Care Information Manager Name Role Phone Haile Singh MD Primary Care Provider [phone]- [phone] Reason for Visit * Reason Onset Date Comments Medication Refill 04/01/2015 Encounter Details Date Type Department Care Team (Late st Contact Info) Description 04/01/2015 Refill [facility] [address] [place] [phone] Haile Singh MD [address] [place] [address] Medication Refill Social History Tobacco Use [...] on filedocumented in this encounter Care Teams Information Manager Relationship Specialty Start Date End Date Haile Singh MD [address] [place] [address] PCP - General Family Medicine 10/13/13 09/22/18 documented as of this encounter
--- OUTSIDE RECORDS SUMMARY | 2024-08-26 09:53 | XMS_ITS | Encounter Summary ---
Author Organization [facility] Address [address] [place] [address] Care Team Providers Care Investor Relations Specialist Name Role Phone Haile Singh MD Primary Care Provider Reason for Visit * Reason Comments Fall Head Injury Facial Injury Drug Overdose Encounter Details Date Type Department Care Team (Late st Contact Info) Description 10/13/2013 10:55 PM POLICE CRIME SCENE TECHNICIAN - 10/14/2013 2:23 AM [facility] Emergency [facility] Emergency Department [facility] [place] [address] Ayush Louise MD [address] [place] [phone] Fall (Primary Dx) Discharge Disposition: Home [...] Comments Blood Pressure 130/89 10/14/2013 1:15 AM POLICE CRIME SCENE TECHNICIAN Pulse 100 10/14/2013 1:15 AM POLICE CRIME SCENE TECHNICIAN Temperature 36.2 ??C (97.2 ??F) 10/13/2013 10:51 PM C Respiratory Rate 20 10/14/2013 1:15 AM POLICE CRIME SCENE TECHNICIAN Oxygen Saturation 98% 10/14/2013 1:15 AM POLICE CRIME SCENE TECHNICIAN Inhaled Oxygen Concentration - - Weight 72.6 kg (160 lb) 10/13/2013 10:51 PM POLICE CRIME SCENE TECHNICIAN Height 180.3 cm (5' 11 ) 10/13/2013 10:51 PM POLICE CRIME SCENE TECHNICIAN Body Mass Index 22.32 10/13/2013 10:51 PM POLICE CRIME SCENE TECHNICIAN documented in this encounter Discharge Instructions * Discharge Instructions* Ayush Louise MD - 10/14/2013 1:57 AM POLICE CRIME SCENE TECHNICIAN Rest. Ice. Suture removal in 7 days, staple removal in 10 days. Follow up with primary physician this morning. Return if symptoms worsen or change. CE CRIME SCENE TECHNICIAN documented in this encounter Procedure Notes * Ayush Louise MD - 10/13/2013 10:55 PM CSTAssociated Order(s): EKG (SCANNED) CE CRIME SCENE TECHNICIAN documented in this encounter ED Notes * Yury Trotter RN - 10/14/2013 2:22 AM CST Pt discharged with father. Pt given written and verbal discharge instructions. Pt verbalized understanding of these instructions. Pt ambulatory to lobby with father. CE CRIME SCENE TECHNICIAN * Ayush Louise MD - 10/14/2013 2:00 AM CST CHIEF COMPLAINT Chief Complaint Patient presents with ??? Fall ??? Head Injury ??? Facial Injury ??? Drug Overdose [facility] John Veliz is a 43 y.o. [...] ORDERING PHYSICIAN CAN CONTACT THE CHEMISTRY DEP'T ([phone]) WITHIN 1 WEEK OF RECIEPT IF CONFIRMATION [...] NEGATIVE JANY/UL UR Appearance CLEAR CLEAR Specific [place], UA 1.002 <1.036 Color, UA COLORLESS (*) [...] discharged in stable condition. Ayush Louise M.D. [facility] Emergency Department This supervisor gate services was electronically signed. It was dictated by use of voice recognition software and electronically transcribed. The supervisor gate services may contain errors not detected in proofreading. Ayush Louise MD 10/14/13 0304 CE CRIME SCENE TECHNICIAN documented in this encounter Miscellaneous Notes * [...] reports the pt drank vodka this evening. CE CRIME SCENE TECHNICIAN * Plan of Care - Ayush Louise MD - 10/13/2013 10:55 PM CST CE CRIME SCENE TECHNICIAN * Miscellaneous - Ayush Louise MD - 10/13/2013 10:55 PM CST CE CRIME SCENE TECHNICIAN documented in this encounter Plan of Treatment Not on file documented as of this encounter Procedures Procedure Name Priority Date/Time Associated Diagnosis Comments ALCOHOL SERUM MEDICAL STAT 10/13/2013 11:57 PM POLICE CRIME SCENE TECHNICIAN DRUG SCREEN MEDICAL STAT 10/13/2013 1 1:57 PM POLICE CRIME SCENE TECHNICIAN URINALYSIS WITH REFLEX TO CULTURE, IF INDICATED STAT 10/13/2013 11:57 PM POLICE CRIME SCENE TECHNICIAN CBC W AUTO DIFF STAT 10/13/2013 11:57 PM POLICE CRIME SCENE TECHNICIAN ACETAMINOPHEN LEVEL STAT 10/13/2013 1 1:57 PM POLICE CRIME SCENE TECHNICIAN SALICYLATE LEVEL STAT 10/13/2013 11:5 7 PM POLICE CRIME SCENE TECHNICIAN COMPREHENSIVE METABOLIC PANEL STAT 10/13/2013 11:57 PM POLICE CRIME SCENE TECHNICIAN CT MAXILLOFACIAL WO CONTRAST STAT 10/13/2013 11:36 PM POLICE CRIME SCENE TECHNICIAN CT CERVICAL SPINE WO CONTRAST STAT 10/13/2013 11:36 PM POLICE CRIME SCENE TECHNICIAN CT HEAD WO CONTRAST STAT 10/13/2013 1 1:35 PM POLICE CRIME SCENE TECHNICIAN EKG STAT 10/13/2013 11:15 PM POLICE CRIME SCENE TECHNICIAN EKG (SCANNED) 10/13/2013 10:55 PM POLICE CRIME SCENE TECHNICIAN documented in this encounter Results * SALICYLATE LEVEL (10/13/2013 11:57 PM POLICE CRIME SCENE TECHNICIAN) Salicylate Level <3 <20 MG/DL SUNQUEST Blood (BLOOD) 10/13/2013 11: 57 PM POLICE CRIME SCENE TECHNICIAN 10/14/2013 12:05 AM POLICE CRIME SCENE TECHNICIAN Ayush Louise MD CHEMISTRY ORDERABLES SUNQUEST * (ABNORMAL) ALCOHOL SERUM MEDICAL (10/13/2013 11:57 PM POLICE CRIME SCENE TECHNICIAN) Alcohol Serum 227(H) <10 MG/DL SUNQUEST Comment:NORMAL: <10 MG/DL 80 MG/DL = 0.08 VOL% Blood (BLOOD) 10/13/2013 11: 57 PM POLICE CRIME SCENE TECHNICIAN 10/14/2013 12:05 AM POLICE CRIME SCENE TECHNICIAN Ayush Louise MD CHEMISTRY ORDERABLES SUNQUEST * (ABNORMAL) URINALYSIS WITH MICROSCOPIC CULTURE IF INDICATED (10/13/2013 11:57 PM POLICE CRIME SCENE TECHNICIAN) Glucose UA NEGATIVE NEGATIVE MG/DL SUNQUEST Protein UA NEGATIVE NEGATIVE MG/DL SUNQUEST Bilirubin UA NEGATIVE NEGATIVE MG/DL SUNQUEST Urobilinogen UA <2.0 <2.0 MG/DL SUNQUEST pH UA 5.0 <7.0 SUNQUEST Blood UA NEGATIVE NEGATIVE MG/DL SUNQUEST Ketones UA NEGATIVE NEGATIVE MG/DL SUNQUEST Nitrite UA NEGATIVE NEGATIVE SUNQUEST Leukocyte Esterase UA NEGATIVE NEGATIVE JANY/UL SUNQUEST UR Appearance CLEAR CLEAR SUNQUEST Specific [place] UA 1.002 <1.036 SUNQUEST Color COLORLESS(A) YELLOW SUNQUEST Site CCMS SUNQUEST Comment, Urine Culture NOT INDICATED SUNQUEST WBC Urine NONE SEEN <5 /HPF SUNQUEST Mucus RARE(A) NORMAL /LPF SUNQUEST Hyaline Casts 3(H) <3 /LPF SUNQUEST Urine (URINE,CLEAN CATCH (CCMS)) 10/13/2013 11:57 PM POLICE CRIME SCENE TECHNICIAN 10/14/2013 12:33 AM POLICE CRIME SCENE TECHNICIAN Ayush Louise MD URINE ORDERABLES Performing Organization Address City/[facility] Co de Phone Number SUNQUEST * DRUG SCREEN 7 MEDICAL (10/13/2013 11:57 PM POLICE CRIME SCENE TECHNICIAN) THC POSITIVE RKD SUNQUEST Cocaine Metabolites Urine [...] ORDERING PHYSICIAN CAN CONTACT THE CHEMISTRY DEP'T ([phone]) WITHIN 1 WEEK OF RECIEPT IF CONFIRMATION IS NEEDED. THC NEGATIVE < 50 ng/ml COCAINE NEGATIVE <300NG/ML OPIATE NEGATIVE <300NG/ML INGESTION OF 3 POPPY SEED ??BAGELS HAS BEEN SHOWN TO CAUSE A POSITIVE OPIATE. BENZO NEGATIVE ?? <200NG/ML JOSEF NEGATIVE ?? <200NG/ML AMPHET NEGATIVE <1000NG/ML PCP NEGATIVE ? <25NG/ML SUNQUEST Urine (URINE,CLEAN CATCH (CCMS)) 10/13/2013 11:57 PM POLICE CRIME SCENE TECHNICIAN 10/14/2013 12:33 AM POLICE CRIME SCENE TECHNICIAN Ayush Louise MD URINE ORDERABLES Performing Organization Address [facility] Co de Phone Number SUNQUEST * (ABNORMAL) COMPREHENSIVE METABOLIC PANEL (10/13/2013 11:57 PM POLICE CRIME SCENE TECHNICIAN) Glucose 118(H) 70 - 99 MG/DL SUNQUEST [...] MMOL/L SUNQUEST Blood 10/13/2013 11:5 7 PM POLICE CRIME SCENE TECHNICIAN 10/14/2013 12:05 AM POLICE CRIME SCENE TECHNICIAN Ayush Louise MD CHEMISTRY ORDERABLES Performing Organization Address City/[facility]/ZIP Co de Phone Number SUNQUEST * (ABNORMAL) CBC W AUTO DIFF (10/13/2013 11:57 PM POLICE CRIME SCENE TECHNICIAN) White Blood Cell Count 9.7 4.1 - [...] 0.04 SUNQUEST Blood 10/13/2013 11:5 7 PM POLICE CRIME SCENE TECHNICIAN 10/14/2013 12:05 AM POLICE CRIME SCENE TECHNICIAN Ayush Louise MD HEMATOLOGY ORDERABLE S SUNQUEST * ACETAMINOPHEN LEVEL (10/13/2013 11:57 PM POLICE CRIME SCENE TECHNICIAN) Acetaminophen, S <4 <10 UG/ML SUNQUEST Comment: TOXICITY UNLIKELY IF INGESTED LESS THAN 24 HOURS. TOXICITY CANNOT BE DETERMINED FROM A SINGLE SAMPLE LESS THAN 4 HOURS POST INGESTION. Blood (BLOOD) 10/13/2013 11: 57 PM POLICE CRIME SCENE TECHNICIAN 10/14/2013 12:05 AM POLICE CRIME SCENE TECHNICIAN Ayush Louise MD CHEMISTRY ORDERABLES SUNQUEST * CT MAXILLOFACIAL WO CONTRAST (10/13/2013 11:36 PM POLICE CRIME SCENE TECHNICIAN) Anatomical Region Laterality Modality Computed Tomogra phy 10/13/2013 11:1 3 PM POLICE CRIME SCENE TECHNICIAN Impressions 10/14/2013 12:34 AM POLICE CRIME SCENE TECHNICIAN IMPRESSION: 1. ?? THERE IS RIGHT PERIORBITAL SOFT TISSUE SWELLING DEMONSTRATED. 2. ?NO ORBITAL FRACTURE IS IDENTIFIED. 3. ?? NO FACIAL BONE FRACTURE IS IDENTIFIED. 4. ?? THERE IS SIGNIFICANT NASAL SEPTAL DEVIATION DEMONSTRATED. Narrative 10/14/2013 12:34 AM POLICE CRIME SCENE TECHNICIAN CT OF FACIAL BONE WITHOUT CONTRAST TECHNIQUE: [...] NASAL SEPTAL DEVIATION DEMONSTRATED. Ayush Louise MD [facility] CT ORDERABLE S * CT CERVICAL SPINE WO CONTRAST (10/13/2013 11:36 PM POLICE CRIME SCENE TECHNICIAN) Anatomical Region Laterality Modality Computed Tomogra phy 10/13/2013 11:1 3 PM POLICE CRIME SCENE TECHNICIAN Impressions 10/14/2013 12:34 AM POLICE CRIME SCENE TECHNICIAN IMPRESSION: THERE IS NO EVIDENCE OF FRACTURE OR DISLOCATION. Narrative 10/14/2013 12:34 AM POLICE CRIME SCENE TECHNICIAN CT OF CERVICAL SPINE WITHOUT CONTRAST TECHNIQUE: [...] OF FRACTURE OR DISLOCATION. Ayush Louise MD [facility] CT ORDERABLE S * CT HEAD WO CONTRAST (10/13/2013 11:35 PM POLICE CRIME SCENE TECHNICIAN) Anatomical Region Laterality Modality Computed Tomogra phy 10/13/2013 11:1 3 PM POLICE CRIME SCENE TECHNICIAN Impressions 10/14/2013 12:34 AM POLICE CRIME SCENE TECHNICIAN IMPRESSION: THERE IS NO EVIDENCE OF INTRACRANIAL HEMORRHAGE. Narrative 10/14/2013 12:34 AM POLICE CRIME SCENE TECHNICIAN CT OF HEAD WITHOUT CONTRAST TECHNIQUE: ??Multiple [...] EVIDENCE OF INTRACRANIAL HEMORRHAGE. Ayush Louise MD [facility] CT ORDERABLE S * EKG (10/13/2013 11:15 PM POLICE CRIME SCENE TECHNICIAN) 10/14/2013 1:08 AM POLICE CRIME SCENE TECHNICIAN Narrative RAD/CARD - 10/16/2013 2:40 AM POLICE CRIME SCENE TECHNICIAN Ventricular Rate : 97 ??BPM Atrial Rate : 97 ??BPM P-R Interval : 152 ??ms QRS Duration : 96 ??ms Q-T Interval : 384 ??ms QTC Calculation(Bezet) : 487 ??ms Calculated P [place] : 76 ??degrees Calculated R [place] : 81 ??degrees T [place] : 54 ??degrees Diagnosis : Normal sinus rhythm Prolonged QT Abnormal ECG Read at the Physician's home Electronically [facility] ([id number] on 10/16/2013 2:40:21 AM Procedure Note Vimal Quiñones MD - 10/16/2013 Ventricular Rate : 97 BPM Atrial Rate : 97 BPM P-R Interval : 152 ms QRS Duration : 96 ms Q-T Interval : 384 ms QTC Calculation(Bezet) : 487 ms Calculated P [place] : 76 degrees Calculated R [place] : 81 degrees T [place] : 54 degrees Diagnosis : Normal sinus rhythm Prolonged QT Abnormal ECG Read at the Physician's home Electronically S[facility] ([id number][facility] on 10/16/2013 2:40:21 AM Ayush Louise MD ECG ORDERABLES RAD/CARD * EKG (SCANNED) (10/13/2013 10:55 PM POLICE CRIME SCENE TECHNICIAN) Narrative Transcriptions Ayush Louise MD - 10/13/2013 [...] 125 ml/hr please Given 10/14/2013 1:13 AM POLICE CRIME SCENE TECHNICIAN 1,000 mL 999 mL/hr [id number] in (NEOSPORIN) 400-5-5000 ointment 1 Packet 1 packet, Topical, ONCE, 1 dose, On 10/14/13 at 0205, STAT Given 10/14/2013 2:03 AM POLICE CRIME SCENE TECHNICIAN documented in this encounter Active and Recently Administered Medications Times are shown in POLICE CRIME SCENE TECHNICIAN. Scheduled Medication Order 10/12/2013 10/13/2013 10/14/2013 0.9% NaCl infusion (COMPLETED) 1,000 mL, Intravenous, at 999 mL/hr, ONCE, 1 dose, On 10/13/13 at 2325, STAT, One liter bolus then 125 ml/hr please 0113 (Given - Provid er: Yury Trotter RN) bjdsjqcq-jqxttbvjre-meroizpff (NEOSPORIN) 400-5-5000 ointment 1 Packet (COMPLETED) 1 packet, Topical, ONCE, 1 dose, On 10/14/13 at 0205, STAT 0203 (Given - Provid er: Ronen Mena RN) documented in this encounter Care Teams Investor Relations Specialist Relationship Specialty Start Date End Date Haile Singh MD [address] [place] [phone] PCP - General Family Medicine 10/13/13 09/22/18 documented as of this encounter
--- OUTSIDE RECORDS SUMMARY | 2024-08-26 09:53 | XMS_ITS | Encounter Summary ---
Author Organization [facility] Address [address] [place] [address] Care Team Providers Care Director Of Special Events Name Role Phone Haile Singh MD Primary Care Provider [phone] Reason for Visit * Reason Comments Follow-up Encounter Details Date Type Department Care Team (Late st Contact Info) Description 09/08/2016 2:45 PM REGIONAL EDUCATION MANAGER Office Visit [facility] [address] [place] [phone] Haile Singh MD [address] [place] [phone] IGGY (generalized anxiety disorder) (Primary Dx); [...] Comments Blood Pressure 128/80 09/08/2016 2:39 PM REGIONAL EDUCATION MANAGER Pulse 88 09/08/2016 2:39 PM REGIONAL EDUCATION MANAGER Temperature 37 ??C (98.6 ??F) 09/08/2016 2:39 PM REGIONAL EDUCATION MANAGER Respiratory Rate 20 09/08/2016 2:39 PM REGIONAL EDUCATION MANAGER Oxygen Saturation 96% 09/08/2016 2:39 PM REGIONAL EDUCATION MANAGER Inhaled Oxygen Concentration - - Weight 80.3 kg (177 lb) 09/08/2016 2:39 PM REGIONAL EDUCATION MANAGER Height 177.8 cm (5' 10 ) 09/08/2016 2:39 PM REGIONAL EDUCATION MANAGER Body Mass Index 25.4 09/08/2016 2:39 PM REGIONAL EDUCATION MANAGER documented in this encounter Progress Notes * [...] about 1 month (around 10/09/2016) for FE. ONAL EDUCATION MANAGER documented in this encounter Plan of Treatment Not on file documented as of this encounter Visit Diagnoses Diagnosis IGGY (generalized anxiety disorder)- Primary Generalized anxiety disorder Hypovitaminosis D Unspecified vitamin D deficiency Chronic fatigue Other malaise and fatigue Medication management Encounter for long-term (current) use of other medications Lipid screening Screening for lipoid disorders documented in this encounter Care Teams Director Of Special Events Relationship Specialty Start Date End Date Haile Singh MD [address] [place] [address] PCP - General Family Medicine 10/13/13 09/22/18 documented as of this encounter
--- OUTSIDE RECORDS SUMMARY | 2024-08-26 09:53 | XMS_ITS | Encounter Summary ---
Author Organization [facility] Address [address] [place] [address] Care Team Providers Care Clinic Scheduler Name Role Phone Haile Singh MD Primary Care Provider [phone]- [phone] Reason for Visit * Reason Onset Date Comments Medication Refill 08/27/2015 Encounter Details Date Type Department Care Team (Late st Contact Info) Description 08/27/2015 Refill [facility] Family Practice [address] [place] [phone] Haile Singh MD [address] [place] [address] Medication Refill Social History Tobacco Use [...] on filedocumented in this encounter Care Teams Clinic Scheduler Relationship Specialty Start Date End Date Haile Singh MD [address] [place] [address] PCP - General Family Medicine 10/13/13 09/22/18 documented as of this encounter
--- OUTSIDE RECORDS SUMMARY | 2024-08-26 09:53 | XMS_ITS | Encounter Summary ---
Author Organization [facility] Address [address] [place] [address] Care Team Providers Care Eyewear Manufacturing Tech Name Role Phone Cody Simms Primary Care Provider [phone]- [phone] Reason for Visit * Reason Comments Medication Refill Encounter Details Date Type Department Care Team (Late st Contact Info) Description 04/20/2016 Refill [facility] Family Practice [address] [place] [phone] Haile Singh MD [address] [place] [address] Medication Refill Social History Tobacco [...] on filedocumented in this encounter Care Teams Eyewear Manufacturing Tech Relationship Specialty Start Date End Date Cody Simms PA [address] [place] [address] PCP - General Physician Global Consumer Sector Vice President 10/24/18 03/10/22 documented as of this encounter
--- OUTSIDE RECORDS SUMMARY | 2024-08-26 09:53 | XMS_ITS | Encounter Summary ---
Author Organization [facility] Address [address] [place] [address] Care Team Providers Care Meat Service Team Member Name Role Phone Cody Simms Primary Care Provider +1- [phone] Reason for Visit * Reason Comments Medication Refill Encounter Details Date Type Department Care Team (Late st Contact Info) Description 08/18/2016 Refill [facility] Family Practice [address] [place] [phone] Haile Singh MD [address] [place] [address] Medication Refill Social History Tobacco [...] on filedocumented in this encounter Care Teams Meat Service Team Member Relationship Specialty Start Date End Date Cody Simms PA [address] [place] [phone] PCP - General Physician Candle Wicker 10/24/18 03/10/22 documented as of this encounter
--- OUTSIDE RECORDS SUMMARY | 2024-08-26 09:53 | XMS_ITS | Encounter Summary ---
Author Organization [facility] Address [address] [place] [address] Care Team Providers Care Sales Manager Prearranged Funerals Name Role Phone Unavailable Primary Care Provider Unavailabl e Encounter Details Date Type Department Care Team (Late st Contact Info) Description 09/30/2005 Hospital Encounter CONVERSION UNIT César Mccoy MD [address] [place] [address] Social History Tobacco Use Types Packs/Day [...]
--- OUTSIDE RECORDS SUMMARY | 2024-08-26 09:53 | XMS_ITS | Encounter Summary ---
Author Organization [facility] Address [address] [place] [address] Care Team Providers Care Supervising Floorperson Name Role Phone Haile Singh MD Primary Care Provider Reason for Visit * Reason Comments Alcohol Intoxication custodial clearance Encounter Details Date Type Department Care Team (Late st Contact Info) Description 01/05/2014 4:40 PM CDT - 01/05/2014 7:[address] [facility] Emergency Department [address] [place] [address] Puneet Hdz MD Acute alcoholic intoxication (Primary Dx) Discharge Disposition: Skilled Nursing, Retirement Social History Tobacco Use Types Packs/Day Years [...] soaked in urine. He was discharge to [facility]. Left unit ambulatory with this rn and epd. Pt's gait steady. * Leann Aaron RN - 01/05/2014 5:39 PM CDT Pt resting quietly on cart. Eyes closed. Respirations even and relaxed. [employer] at bedside. * Puneet Hdz MD - 01/05/2014 4:46 PM CDT This wildlife enforcement major was electronically signed. It was dictated by use of voice recognition software and electronically transcribed. The wildlife enforcement major may contain errors not detected in proofreading. CHIEF COMPLAINT Chief Complaint Patient presents with ??? Alcohol Intoxication custodial clearance HPI John Veliz is a 43 y.o. male who presents with Skilled Nursing clearance. Patient brought in by police for [...] NEGATIVE JANY/UL UR Appearance CLEAR CLEAR Specific [place], UA 1.002 <1.036 Color, UA COLORLESS (*) [...] walk with minimal assistance. I've written a custodial clearance form. 38 minutes of time spent [...] PM CDT Pt arrives per [employer] for custodial clearance. His portable brethalizer result was .26. [...] ORDERING PHYSICIAN CAN CONTACT THE CHEMISTRY DEP'T ([phone]) WITHIN 1 WEEK OF RECIEPT IF CONFIRMATION [...] MD HEMATOLOGY ORDERABLE S Performing Organization Address [facility] Co de Phone Number SUNQUEST * (ABNORMAL) ALCOHOL SERUM MEDICAL (01/05/2014 4:51 PM CDT) Alcohol Serum 392(H) <10 MG/DL SUNQUEST Comment:NORMAL: <10 MG/DL 80 MG/DL = 0.08 VOL% Blood 01/05/2014 4:51 PM CDT 01/05/2014 4:55 PM CDT Puneet Hdz MD CHEMISTRY ORDERABLES Performing Organization Address [facility] de Phone Number SUNQUEST * (ABNORMAL) URINALYSIS [...] SUNQUEST UR Appearance CLEAR CLEAR SUNQUEST Specific [place] UA 1.002 <1.036 SUNQUEST Color COLORLESS(A) YELLOW SUNQUEST Site CCMS SUNQUEST Comment, Urine Culture NOT INDICATED SUNQUEST WBC Urine NONE SEEN <5 /HPF SUNQUEST Urine (URINE,CLEAN CATCH (CCMS)) 01/05/2014 4:46 PM CDT 01/05/2014 4:59 PM CDT Puneet Hdz MD URINE ORDERABLES Performing Organization Address [facility] Co de Phone Number SUNQUEST documented [...] RN) documented in this encounter Care Teams Supervising Floorperson Relationship Specialty Start Date End Date Haile Singh MD [address] [place] [phone] PCP - General Family Medicine 10/13/13 09/22/18 documented as of this encounter
--- OUTSIDE RECORDS SUMMARY | 2024-08-26 09:53 | XMS_ITS | Encounter Summary ---
Author Organization [facility] Address [address] [place] [address] Care Team Providers Care Coiled Tubing Operator Name Role Phone Unavailable Primary Care Provider Unavailabl e Reason for Visit * Reason Comments Anxiety Encounter Details Date Type Department Care Team (Late st Contact Info) Description 11/17/2009 2:09 PM CDT - 11/17/2009 5:11 PM CDT Emergency [facility] Emergency Department [address] [place] [phone] Jeremias Lerma MD Anxiety reaction Discharge [...] for his depression and anxiety. Recommended agencies: [facility] [phone], [employer]. [phone], [facility] [phone], or [facility] [phone]. documented in this encounter Progress Notes * Jeremias Lerma MD - 11/17/2009 2:09 PM CDT documented in this encounter Consult Notes * Marleni Martines MSW - 11/17/2009 4:27 PM CDTAssociated Order(s): IP CONSULT TO CARE TEAM Pt presents to [facility] for anxiety. Pt states he has had [...] a few weeks ago he was in [place] and went to an ER there and was given a 2 week prescription of 1 mg Xanax. Pt states he sometimes feels like he is bummin out. Pt states he tried to make them last as long as possible, and that he took his last one Wednesday. Pt denies SI/HI. Pt admits to one previous psychiatric hospitalization in [place], [place] for SI in 2005. Pt denies current psychiatric treatment, but states he's open to outpatient treatment. Pt states he has seen a psychiatrist in the past for about 6 months in 2005 and was on Seroquel 75 mg and Xanax 1 mg bid. 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 Pt states he enjoys his work but [...] No rales, No ronchi. Skin: Warm, Dry, [employer]. No erythema, No rash. Abdomen: Bowel sounds [...] 3. Electronically signed but not proofread. This pie dough roller was electronically signed. It was dictated by use of voice recognition software and electronically transcribed. The pie dough roller may contain errors not detected in proofreading. [...] ORDERING PHYSICIAN CAN CONTACT THE CHEMISTRY DEP'T ([phone]) WITHIN 1 WEEK OF RECIEPT IF CONFIRMATION IS NEEDED. THC NEGATIVE < 50 ng/ml COCAINE NEGATIVE <300NG/ML OPIATE NEGATIVE <2000NG/ML BENZO NEGATIVE ?? <200NG/ML JOSEF NEGATIVE ?? <200NG/ML AMPHET NEGATIVE <1000NG/ML PCP NEGATIVE ? <25NG/ML SUNQUEST Urine (URINE,CLEAN CATCH (CCMS)) 11/17/2009 3:00 PM CDT 11/17/2009 3:21 PM CDT Jeremias Lerma MD URINE ORDERABLES Performing Organization Address City/[facility] Co de Phone Number SUNQUEST * ALCOHOL SERUM MEDICAL (11/17/2009 2:30 PM CDT) Alcohol Serum <10 <10 MG/DL SUNQUEST Comment:NORMAL: <10 MG/DL 80 MG/DL = 0.08 VOL% Blood (BLOOD) 11/17/2009 2:3 0 PM CDT 11/17/2009 2:34 PM CDT Jeremias Lerma MD CHEMISTRY ORDERABLES Performing Organization Address City/[facility] Co de Phone Number SUNQUEST documented in this encounter Visit Diagnoses Diagnosis Anxiety reaction Anxiety state, unspecified documented in this encounter
--- OUTSIDE RECORDS SUMMARY | 2024-08-26 09:53 | XMS_ITS | Encounter Summary ---
Author Organization [facility] Address [address] [place] [address] Care Team Providers Care Member Of Technical Staff Name Role Phone Cody Simms Primary Care Provider +1- [phone] Reason for Visit * Reason Comments Medication Refill Encounter Details Date Type Department Care Team (Late st Contact Info) Description 02/13/2016 Refill [facility] [address] [place] [address] Haile Singh MD [address] [place] [address] Medication Refill Social History Tobacco [...] on filedocumented in this encounter Care Teams Member Of Technical Staff Relationship Specialty Start Date End Date Cody Simms PA [address] [place] [address] PCP - General Physician Hand Ironer 10/24/18 03/10/22 documented as of this encounter
--- OUTSIDE RECORDS SUMMARY | 2024-08-26 09:53 | XMS_ITS | Encounter Summary ---
Author Organization [facility] Address [address] [place] [address] Care Team Providers Care Metal Cleaner Name Role Phone Haile Singh MD Primary Care Provider +1- [phone] Reason for Visit * Reason Comments Nasal Congestion C/o sinus congestion and pressure, sore throat and right ear pain. Encounter Details Date Type Department Care Team (Late st Contact Info) Description 08/11/2016 2:15 PM ELECTRONIC PUBLISHER Office Visit [facility] [address] [place] [phone] Niya Mcknight PA [address] [place] [address] Acute URI (Primary Dx) Social [...] Comments Blood Pressure 116/86 08/11/2016 2:08 PM ELECTRONIC PUBLISHER Pulse 88 08/11/2016 2:08 PM ELECTRONIC PUBLISHER Temperature 36.9 ??C (98.5 ??F) 08/11/2016 2:08 PM CS T Respiratory Rate 20 08/11/2016 2:08 PM ELECTRONIC PUBLISHER Oxygen Saturation 97% 08/11/2016 2:08 PM ELECTRONIC PUBLISHER Inhaled Oxygen Concentration - - Weight 79.8 kg (176 lb) 08/11/2016 2:08 PM ELECTRONIC PUBLISHER Height 177.8 cm (5' 10 ) 08/11/2016 2:08 PM ELECTRONIC PUBLISHER Body Mass Index 25.25 08/11/2016 2:08 PM ELECTRONIC PUBLISHER documented in this encounter Patient Instructions * Patient Instructions* Niya Mcknight PA - 08/11/2016 2:33 PM ELECTRONIC PUBLISHER Hot liquids TRONIC PUBLISHER documented in this encounter Progress Notes * [...] fluticasone (FLONASE) 50 MCG/ACT nasal spray Si Speer by Nasal route daily Dispense: 1 Inhaler Refill: 2 Recommended decongestants OTC. Recommended hot liquids. Return if symptoms worsen or fail to improve. TRONIC PUBLISHER documented in this encounter Plan of Treatment Not on file documented as of this encounter Visit Diagnoses Diagnosis Acute URI- Primary Acute upper respiratory infections of unspecified site documented in this encounter Care Teams Metal Cleaner Relationship Specialty Start Date End Date Haile Singh MD [address] [place] [address] PCP - General Family Medicine 10/13/13 09/22/18 documented as of this encounter
--- OUTSIDE RECORDS SUMMARY | 2024-08-26 09:53 | XMS_ITS | Encounter Summary ---
Author Organization [facility] Address [address] [place] [address] Care Team Providers Care Agriculture Research Director Name Role Phone Haile Singh MD Primary Care Provider +1- [phone] Reason for Visit * Reason Onset Date Comments Medication Refill 04/30/2015 Encounter Details Date Type Department Care Team (Late st Contact Info) Description 04/30/2015 Refill [facility] [address] [place] [phone] Haile Singh MD [address] [place] [address] Medication Refill Social History Tobacco Use [...] on filedocumented in this encounter Care Teams Agriculture Research Director Relationship Specialty Start Date End Date Haile Singh MD [address] [place] [address] PCP - General Family Medicine 10/13/13 09/22/18 documented as of this encounter
--- OUTSIDE RECORDS SUMMARY | 2024-08-26 09:53 | XMS_ITS | Encounter Summary ---
Author Organization [facility] Address [address] [place] [address] Care Team Providers Care Big Data Hadoop Developer Name Role Phone Haile Singh MD Primary Care Provider +1- [phone] Reason for Visit * Reason Onset Date Comments Medication Refill 11/06/2016 Encounter Details Date Type Department Care Team (Late st Contact Info) Description 11/06/2016 Refill [facility] [address] [place] [address] Haile Singh MD [address] [place] [address] Medication Refill Social History Tobacco [...] be out of script before appointment date MATED EQUIPMENT ENGINEER TECHNICIAN documented in this encounter Plan of Treatment Not on file documented as of this encounter Visit Diagnoses Not on filedocumented in this encounter Care Teams Big Data Hadoop Developer Relationship Specialty Start Date End Date Haile Singh MD [address] [place] [address] PCP - General Family Medicine 10/13/13 09/22/18 documented as of this encounter
--- OUTSIDE RECORDS SUMMARY | 2024-08-26 09:53 | XMS_ITS | Encounter Summary ---
Author Organization [facility] Address [address] [place] [address] Care Team Providers Care Death Clearance Coordinator Name Role Phone Haile Singh MD Primary Care Provider +1- [phone] Reason for Visit * Reason Onset Date Comments Medication Refill 05/26/2016 Encounter Details Date Type Department Care Team (Late st Contact Info) Description 05/26/2016 Refill [facility] Family Practice [address] [place] [phone] Haile Singh MD [address] [place] [phone] Medication Refill Social History Tobacco Use Types [...] on filedocumented in this encounter Care Teams Death Clearance Coordinator Relationship Specialty Start Date End Date Haile Singh MD [address] [place] [address] [phone] PCP - General Family Medicine 10/13/13 09/22/18 documented as of this encounter
--- OUTSIDE RECORDS SUMMARY | 2024-08-26 09:53 | XMS_ITS | Encounter Summary ---
Author Organization [facility] Address [address] [place] [address] Care Team Providers Care Group Insurance Specialist Name Role Phone Haile Singh MD Primary Care Provider +1- [phone] Reason for Visit * Reason Comments Follow-up Encounter Details Date Type Department Care Team (Late st Contact Info) Description 05/25/2016 4:30 PM CDT Office Visit [facility] [address] [place] [phone] Haile Singh MD [address] [place] [address] IGGY (generalized anxiety disorder) (Primary Dx); [...] back now. Never did like [facility], working now with his father. [...] MD CHEMISTRY ORDERABLE S Performing Organization Address [facility] Co de Phone Number [address] * VITAMIN D 25 HYDROXY (03/02/2017) Haile Singh MD CHEMISTRY ORDERABLE S Performing Organization Address [facility] Co de Phone Number [address] * TSH THIRD GENERATION (03/01/2017) Blood Haile Singh MD CHEMISTRY ORDERABLE S Performing Organization Address [facility] Co de Phone Number [address] * LIPID PROFILE (03/01/2017) Blood Haile Singh MD CHEMISTRY ORDERABLE S Performing Organization Address [facility] Co de Phone Number [address] * COMPREHENSIVE METABOLIC PANEL (03/01/2017) Blood Haile Singh MD CHEMISTRY ORDERABLE S Performing Organization Address [facility]/ZIP Co de Phone Number [address] * CBC W AUTO DIFF (03/01/2017) Blood Haile Singh MD HEMATOLOGY ORDERABL ES Performing Organization Address [facility] Co de Phone Number [address] documented in this encounter Visit [...] disorder documented in this encounter Care Teams Group Insurance Specialist Relationship Specialty Start Date End Date Haile Singh MD [address] [place] [address] PCP - General Family Medicine 10/13/13 09/22/18 documented as of this encounter
--- OUTSIDE RECORDS SUMMARY | 2024-08-26 09:53 | XMS_ITS | Encounter Summary ---
Author Organization [facility] Address [address] [place] [address] Care Team Providers Care Health Support Specialist Name Role Phone Haile Singh MD Primary Care Provider +1- [phone] Reason for Visit * Reason Onset Date Comments Medication Refill 08/27/2014 meds Encounter Details Date Type Department Care Team (Late st Contact Info) Description 08/27/2014 Refill [facility] [address] [place] [address] Haile Singh MD [facility] [place] [address] Medication Refill (meds) Social History [...] Zuleika Joseph CNA - 08/27/2014 5:04 PM PIZZA MAKER Pt said he had seen Hola and got a script for the Xanax on 08/09/14 but he didn't give him any refill on it. Pt said it due around 09-03-14. Pt is needing refills called into [facility]. A MAKER documented in this encounter Plan of Treatment Not on file documented as of this encounter Visit Diagnoses Not on filedocumented in this encounter Care Teams Health Support Specialist Relationship Specialty Start Date End Date Haile Singh MD [address] [place] [address] PCP - General Family Medicine 10/13/13 09/22/18 documented as of this encounter
--- OUTSIDE RECORDS SUMMARY | 2024-08-26 09:53 | XMS_ITS | Encounter Summary ---
Author Organization [facility] Address [address] [place] [address] Care Team Providers Care Pit Supervisor Name Role Phone Cody Simms Primary Care Provider +1- [phone] Reason for Visit * Reason Comments Medication Refill Encounter Details Date Type Department Care Team (Late st Contact Info) Description 08/28/2014 Refill [facility] [address] [place] [address] Hola Thomas PA [facility] [address] [place] [address] Medication Refill Social History Tobacco Use Types [...] Zuleika Joseph CNA - 08/28/2014 12:24 PM APPRENTICE STYLIST This was done by already! ENTICE STYLIST documented in this encounter Plan of Treatment Not on file documented as of this encounter Visit Diagnoses Not on filedocumented in this encounter Care Teams Pit Supervisor Relationship Specialty Start Date End Date Cody Simms PA [address] [place] [address] PCP - General Physician Police Chief 10/24/18 03/10/22 documented as of this encounter
--- OUTSIDE RECORDS SUMMARY | 2024-08-26 09:53 | XMS_ITS | Encounter Summary ---
Author Organization [facility] Address [address] [place] [address] Care Team Providers Care Internet Security Specialist Name Role Phone Cody Simms Primary Care Provider +1- [phone] Reason for Visit * Reason Comments Medication Refill Encounter Details Date Type Department Care Team (Late st Contact Info) Description 10/21/2015 Refill [facility] [address] [place] [address] Haile Singh MD [address] [place] [address] Medication Refill Social History Tobacco [...] on filedocumented in this encounter Care Teams Internet Security Specialist Relationship Specialty Start Date End Date Cody Simms PA [address] [place] [address] PCP - General Physician Regional Business Development Manager 10/24/18 03/10/22 documented as of this encounter
--- OUTSIDE RECORDS SUMMARY | 2024-08-26 09:53 | XMS_ITS | Encounter Summary ---
Author Organization [facility] Address [address] [place] [address] Care Team Providers Care Women Specialist Name Role Phone Cody Simms Primary Care Provider +1- [phone] Reason for Visit * Reason Comments Medication Refill Encounter Details Date Type Department Care Team (Late st Contact Info) Description 10/19/2014 Refill [facility] [address] [place] [address] Haile Singh MD [address] [place] [address] Medication Refill Social History Tobacco [...] on filedocumented in this encounter Care Teams Women Specialist Relationship Specialty Start Date End Date Cody Simms PA [address] [place] [address] PCP - General Physician Truckload Checker 10/24/18 03/10/22 documented as of this encounter
--- OUTSIDE RECORDS SUMMARY | 2024-08-26 09:53 | XMS_ITS | Encounter Summary ---
Author Organization [facility] Address [address] [place] [address] Care Team Providers Care Snack Foods Mixer Operator Name Role Phone Unavailable Primary Care Provider Unavailabl e Reason for Visit * Reason Comments Anxiety Encounter Details Date Type Department Care Team (Late st Contact Info) Description 11/16/2009 12:55 PM SMALL BRAKE FORM OPERATOR - 11/16/2009 3:07 PM SMALL BRAKE FORM OPERATOR [facility] Emergency Department [address] [place] [phone] Discharge Disposition: Home Social History Tobacco Use Types Packs/Day Years Used Date Smoking Tobacco: Never Assessed Sex and Gender Information Value Date Recorded Sex Assigned at Not on file Gender Identity Not on file Sexual Orientation Not on file documented as of this encounter Last Filed Vital Signs Vital Sign Reading Time Taken Comments Blood Pressure 108/78 11/16/2009 1:02 PM SMALL BRAKE FORM OPERATOR Pulse 76 11/16/2009 1:02 PM SMALL BRAKE FORM OPERATOR Temperature 36.2 ??C (97.2 ??F) 11/16/2009 1:02 PM CS T Respiratory Rate 20 11/16/2009 1:02 PM SMALL BRAKE FORM OPERATOR Oxygen Saturation 98% 11/16/2009 1:02 PM SMALL BRAKE FORM OPERATOR Inhaled Oxygen Concentration - - Weight 77.1 kg (170 lb) 11/16/2009 1:02 PM SMALL BRAKE FORM OPERATOR Height 177.8 cm (5' 10 ) 11/16/2009 1:02 PM SMALL BRAKE FORM OPERATOR Body Mass Index 24.39 11/16/2009 1:02 PM SMALL BRAKE FORM OPERATOR documented in this encounter Miscellaneous Notes * Miscellaneous - Physician Glover MD - 11/16/2009 12:55 PM CST documented in this encounter Plan of Treatment Not on file documented as of this encounter Visit Diagnoses Not on filedocumented in this encounter
--- OUTSIDE RECORDS SUMMARY | 2024-08-26 09:57 | XMS_ITS ---
Author Organization [facility] Planning Address [address] [place] [phone] Care Team Providers Care Racker Octave Board Name Role Phone Mahesh Abdul Primary Care Provider Jimmie Abdul Unavailable [phone] REASON FOR VISIT in person intale Medications [...] Problems Encounters Encounter Location Date Provider Diagnosis [address] [phone] 06/25/2023 Jimmie Abdul Special screening for other specified conditions Z13.89 Assessments Encounter Date Diagnosis (ICD Code) Assessment Notes Treatment Notes Treatment Clinical Notes Section Notes 06/25/2023 Special screening for other specified conditions (ICD-10 - Z13.89) Plan Of Treatment No Information Progress Notes * Nerissa VELIZOB:[birth year] (53 yo M)Acc No.[id number]:06/25/2023 Progress Note Patient:?John Veliz Provider:?Jimmie Abdul MD :1970???Age:53 Y???Sex:Male Valdemar e:06/25/2023 Address:[address] [place], [place] Pcp:Mahesh Abdul Check Out:03:02 PM MECHANICAL ENGINEERING SPECIALIST Subjective: * Chief Complaints: * ???1. [...] riding is worse, but has had to pin puller driving and take a Xanax and [...] See below sister w/ thyroid issues and [facility] suggested possibly removing it, but never f/u out of fear of being dependent on medication. ?Maternal side: Patient stated mom w/ diabetes, blood pressure. ?Paternal side: Patient stated dad w/ blood pressure. ?Social history: Patient stated had a good childhood. Parents stayed together. ?Social support: Patient stated girlfriend for support. Informed of 988. ? place: Patient stated born in [place], [place] and raised in [place], but moved around a bit. ?Family history-siblings, psych issue: Patient stated younger sister and brother; sister w/ severe anxiety, brother w/ ADHD. ?Current environment-city, house? Condo? Homeless? Living with someone: Patient stated house in [place] and girlfriend has been staying over. Stated has her own place, but sister and dzzncse-kt-lzr want to renovate and having issues getting things moved due to her seizures and pt's issues and lingering shoulder injury. ?Relationship: , prior marriage, length of relationship? Patient stated girlfriend for 2.5 years. 2x, 1st for 3 years, . 2nd 6 years, . ?Children: Patient stated no children. ?Education level: Patient stated 10th grade. 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 [...] Treatment: * Billing Information: * Visit Code:? 38303 OFFICEOUTPATIENT VISIT, EST. * Procedure Codes:? * Sign off status: Completed Visit Status:?CHK (Check Out ) true * Provider:?Jimmie Abdul MD Date:? Generated for Kyleighi navneet/Flor/eTransmlou on:?08/26/2024 09:57 AM MECHANICAL ENGINEERING SPECIALIST History and Physical Notes * HPI [...] riding is worse, but has had to pin puller driving and take a Xanax and [...] See below sister w/ thyroid issues and [facility] suggested possibly removing it, but never f/u out of fear of being dependent on medication. Maternal side: Patient stated mom w/ diabetes, blood pressure. Paternal side: Patient stated dad w/ blood pressure. Social history: Patient stated had a good childhood. Parents stayed together. Social support: Patient stated girlfriend for support. Informed of 988. place: Patient stated born in [place], [place] and raised in [place], but moved around a bit. Family history-siblings, psych issue: Patient stated younger sister and brother; sister w/ severe anxiety, brother w/ ADHD. Current environment-city, house? Condo? Homeless? Living with someone: Patient stated house in [place] and girlfriend has been staying over. Stated has her own place, but sister and krjaupo-ci-ssm want to renovate and having issues getting things moved due to her seizures and pt's issues and lingering shoulder injury. Relationship: , prior marriage, length of relationship? Patient stated girlfriend for 2.5 years. 2x, 1st for 3 years, . 2nd 6 years, . Children: Patient stated no children. Education level: Patient stated 10th grade. 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 [...]
--- OUTSIDE RECORDS SUMMARY | 2024-08-26 09:57 | XMS_ITS ---
Author Organization [facility] Planning Address [address] [place] [phone] Care Team Providers Care Telecommunications Network Engineer Name Role Phone Mahesh Abdul Primary Care Provider [phone] Jimmie Abdul Unavailable [phone] Allergies No Known Allergies REASON FOR VISIT Patient presents for 1st appointment Problems No Known Problems Encounters Encounter Location Date Provider Diagnosis [facility] [address] [address] 07/14/2023 Jimmie Abdul Plan Of Treatment No Information Progress Notes * Nerissa RAMOSOB:[birth year] (54 yo M)Acc No.[id number]:07/14/2023 UNLOCKED PROGRESS NOTE Patient:?John RAMOS Provider:?Jimmie Abdul MD :1970???Age:53 Y???Sex:Male Valdemar e:07/14/2023 Address:[address] [place], [place] [id number] Pcp:Mahesh Abdul Subjective: * Chief Complaints: * [...] Electronic signature of Semaj Abdul MD on 08/26/2024 at 09:57 AM CIRCUIT BREAKER ASSEMBLER Sign off status: Pending Visit Status:?N/S (No-Show) * Provider:?Jimmie Abdul MD Date:?04/2023 Generated for Griffin toth/Flor/Edilson on:?08/26/2024 09:57 AM CIRCUIT BREAKER ASSEMBLER
--- OUTSIDE RECORDS SUMMARY | 2024-08-26 09:57 | XMS_ITS ---
Author Organization [facility] Planning Address [address] [place] [phone] Care Team Providers Care Motor Vehicle Lecturer Name Role Phone Mahesh Abdul Primary Care Provider Jimmie Abdul [phone] REASON FOR VISIT 1st mh Problems No Known Problems Encounters Encounter Location Date Provider Diagnosis [facility] [address] [address] 07/05/2023 Jimmie Abdul Plan Of Treatment No Information Progress Notes * Nerissa VELIZOB:[birth year] (54 yo M)Acc No.[id number]:07/05/2023 UNLOCKED PROGRESS NOTE Patient:?John VELIZ Provider:?Jimmie Abdul MD :1970???Age:53 Y???Sex:Male Valdemar e:07/05/2023 Address:[address] [place], [place] [address] Pcp:Mahesh Abdul Subjective: * Chief Complaints: * [...] riding is worse, but has had to tub puller driving and take a Xanax and [...] See below sister w/ thyroid issues and [facility] suggested possibly removing it, but never f/u out of fear of being dependent on medication. Maternal side: Patient stated mom w/ diabetes, blood pressure. Paternal side: Patient stated dad w/ blood pressure. Social history: Patient stated had a good childhood. Parents stayed together. Social support: Patient stated girlfriend for support. Informed of 988. place: Patient stated born in [place], [place] and raised in [place], but moved around a bit. Family history-siblings, psych issue: Patient stated younger sister and brother; sister w/ severe anxiety, brother w/ ADHD. Current environment-city, house? Condo? Homeless? Living with someone: Patient stated house in [place] and girlfriend has been staying over. Stated has her own place, but sister and bfrjksk-wa-zoc want to renovate and having issues getting things moved due to her seizures and pt's issues and lingering shoulder injury. Relationship: , prior marriage, length of relationship? Patient stated girlfriend for 2.5 years. 2x, 1st for 3 years, . 2nd 6 years, . Children: Patient stated no children. Education level: Patient stated 10th grade. 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 [...] Abdul MD on 08/26/2024 at 09:57 AM COLOR MAKING SUPERVISOR Sign off status: Pending Visit Status:?R/S (Reschedul ed) * Provider:?Jimmie Abdul MD Date:? Generated for Griffin toth/Flor/Vannaitting on:?08/26/2024 09:57 AM COLOR MAKING SUPERVISOR History and Physical Notes * HPI (History [...] riding is worse, but has had to tub puller driving and take a Xanax and [...] See below sister w/ thyroid issues and [facility] suggested possibly removing it, but never f/u out of fear of being dependent on medication. Maternal side: Patient stated mom w/ diabetes, blood pressure. Paternal side: Patient stated dad w/ blood pressure. Social history: Patient stated had a good childhood. Parents stayed together. Social support: Patient stated girlfriend for support. Informed of [address]. place: Patient stated born in [place], [place] and raised in [place], but moved around a bit. Family history-siblings, psych issue: Patient stated younger sister and brother; sister w/ severe anxiety, brother w/ ADHD. Current environment-city, house? Condo? Homeless? Living with someone: Patient stated house in [place] and girlfriend has been staying over. Stated has her own place, but sister and mymielp-dd-nld want to renovate and having issues getting things moved due to her seizures and pt's issues and lingering shoulder injury. Relationship: , prior marriage, length of relationship? Patient stated girlfriend for 2.5 years. 2x, 1st for 3 years, . 2nd 6 years, . Children: Patient stated no children. Education level: Patient stated 10th grade. 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 [...]
--- OUTSIDE RECORDS SUMMARY | 2024-08-26 09:58 | XMS_ITS | Encounter Summary ---
Author Organization [facility] Address [address] [place] [address] Care Team Providers Care Director Of Early Childhood Education Name Role Phone Joanna Mckeon CORPORATE LEGAL INTERN Primary Care Provider +1- [phone] Reason for Visit * Reason Comments Med Refill Encounter Details Date Type Department Care Team (Late st Contact Info) Description 05/26/2024 Refill [facility] Primary Care [place] [address] [facility] [address] [place] [phone] Sharri Watson NP [address] [place] [id number] IGGY (generalized anxiety disorder) Social History Tobacco [...] for Testerone sent to [facility] in [place]. Draw out needle is 18g and the injection one is 23g 1 inch needle. Callback #[phone]. documented in this encounter Plan of Treatment Upcoming Encounters Date Type Department Care Team (Late st Contact Info) Description 09/26/2024 10:30 AM DOLL WIGS HACKLER Office Visit [facility] Primary Care [place] [address] [facility] [address] [place] [address] Joanna Mckeon NP [address] [place] [address] documented as of this encounter Visit Diagnoses Diagnosis IGGY (generalized anxiety disorder) Generalized anxiety disorder documented in this encounter Care Teams Director Of Early Childhood Education Relationship Specialty Start Date End Date Joanna Mckeon NP PCP - General Nurse Practitioner Family 07/13/23 documented as of this encounter
--- OUTSIDE RECORDS SUMMARY | 2024-08-26 09:58 | XMS_ITS | Clinical Summary ---
Author Organization [facility] Address [address] [place] [address] Care Team Providers Care Patient Ombudsperson Name Role Phone Joanna Mckeon PUBLISHING MANAGER Primary Care Provider +1- [phone] Allergies Active Allergy Reactions Criticality Noted Date [...] TIW. Patient had been seen neurologist in [facility]. Had started seeing Coyd Simms at this facility for awhile. Cody [...] Type Department Care Team Description 08/15/[address] [phone] Joanna Mckeon NP 08/14/2024 12:00 PM STERILE PREPARATION TECHNICIAN Office Visit [address] [phone] Joanna Mckeon NP Closed fracture of distal end of right fibula, unspecified fracture morphology, initial encounter (Primary Dx) 07/05/[address] [phone] Velvet Anderson LPN Hx of disseminated herpes zoster infection 07/05/[address] [phone] Joanna Mckeon NP 06/26/2024 11:00 AM CDT Office Visit [address] [address] Joanna Mckeon NP Hypertension, unspecified type (Primary Dx); Alcoholism (HCC); IGGY (generalized anxiety disorder); Dental abscess; Testosterone deficiency 06/14/2024 2:30 PM CDT Clinical Support [address] [phone] Nurse, [facility] Male hypogonadism (Primary Dx) from Last 3 Months Immunizations Name Administration [...] Comments Blood Pressure 128/76 08/14/2024 12:15 PM STERILE PREPARATION TECHNICIAN Pulse 93 08/14/2024 12:15 PM STERILE PREPARATION TECHNICIAN Temperature 36.6 ??C (97.8 ??F) 08/14/2024 12:[address] Respiratory Rate 18 08/14/2024 12:15 PM STERILE PREPARATION TECHNICIAN Oxygen Saturation 97% 08/14/2024 12:15 PM STERILE PREPARATION TECHNICIAN Inhaled Oxygen Concentration - - Weight 86.2 kg (190 lb) 06/26/2024 11:19 AM CDT Height 177.8 cm (5' 10 ) 06/26/2024 11:19 AM CDT Body Mass Index 27.26 06/26/2024 11:19 AM CDT Plan of Treatment Upcoming Encounters Date Type Department Care Team (Late st Contact Info) Description 09/26/2024 10:30 AM STERILE PREPARATION TECHNICIAN Office Visit [facility] Primary Care [address] [place] [phone] Joanna Mckeon NP [address] [place] [address] Health Maintenance Due Date Last Done Comments [...] - 4.00 ng/mL 05/11/2024 5:35 PM CDT [facility] Blood Venous blood specimen / Unknown Venipuncture / Unknown 05/11/2024 9:49 AM CDT 05/11/2024 9:49 AM CDT Joanna Mckeon NP LAB BLOOD ORDERABLES Final Result [facility] [address] [place] [address], [place] from Last 3 Months or Most Recently Relevant to Health Maintenance Insurance [employer] Care Teams Patient Ombudsperson Relationship Specialty Start Date End Date Joanna Mckeon NP PCP - General Nurse Practitioner Family 07/13/23
--- OUTSIDE RECORDS SUMMARY | 2024-08-26 09:58 | XMS_ITS | Encounter Summary ---
Author Organization [facility] Address [address] [place] [address] Care Team Providers Care Assistant Reading Teacher Name Role Phone Joanna Mckeon NP Primary Care Provider +1- [phone] Reason for Visit * Reason Comments Med Refill Encounter Details Date Type Department Care Team (Late st Contact Info) Description 03/20/2024 Refill [facility] Primary Care [address] [address] Joanna Mckeon NP [address] [place] [address] IGGY (generalized anxiety disorder); Alcoholism (HCC) [...] st Contact Info) Description 09/26/2024 10:30 AM GRADALL OPERATOR Office Visit [facility] Primary Care [address] [address] Joanna Mckeon NP [address] [address] documented as of this encounter Visit Diagnoses Diagnosis IGGY (generalized anxiety disorder) Generalized anxiety disorder Alcoholism (HCC) Other and unspecified alcohol dependence, unspecified drinking behavior documented in this encounter Care Teams Assistant Reading Teacher Relationship Specialty Start Date End Date Joanna Mckeon NP PCP - General Nurse Practitioner Family 07/13/23 documented as of this encounter
--- OUTSIDE RECORDS SUMMARY | 2024-08-26 09:58 | XMS_ITS | Encounter Summary ---
Author Organization [facility] Address [address] [place] [address] Care Team Providers Care Radiology Aide Name Role Phone Joanna Mckeon AUTO BODY PAINTER Primary Care Provider +1- [phone] Reason for Visit * Reason Comments Hypertension Med refills Encounter Details Date Type Department Care Team (Late st Contact Info) Description 01/18/2024 11:00 AM CDT Office Visit [facility] Primary Care [place] [address] [place] [phone] Joanna Mckeon NP [address] [place], [place] [address] Hypertension, unspecified type (Primary Dx); Alcoholism (HCC) [...] work schedule and being away from his [facility] and anab[employer]ism while working. I have reviewed, and updated [...] st Contact Info) Description 09/26/2024 10:30 AM CATH LAB TECH Office Visit [facility] Primary Care [address] [place] [address] Joanna Mckeon NP [address] [place] [address] documented as of this encounter Visit Diagnoses Diagnosis Hypertension, unspecified type- Primary Alcoholism (HCC) Other and unspecified alcohol dependence, unspecified drinking behavior documented in this encounter Care Teams Radiology Aide Relationship Specialty Start Date End Date Joanna Mckeon NP PCP - General Nurse Practitioner Family 07/13/23 documented as of this encounter
--- OUTSIDE RECORDS SUMMARY | 2024-08-26 09:58 | XMS_ITS | Encounter Summary ---
Author Organization [facility] Address [address] [place] [address] Care Team Providers Care Resume Specialist Name Role Phone Joanna Mckeon NP Primary Care Provider +1- [phone] Reason for Visit * Reason Comments Hypertension Pt here for 3 month check on his hypertension. Checks at home. GITA Pt here for anxiety disorder recheck. May needs refills. ED Pt here to get his t estosterone injection. Encounter Details Date Type Department Care Team (Late st Contact Info) Description 06/26/2024 11:00 AM CDT Office Visit [facility] Primary Care [address] [place] [address] Joanna Mckeon NP [address] [place] [address] Hypertension, unspecified type (Primary Dx); [...] st Contact Info) Description 09/26/2024 10:30 AM RECORD CENTER COORDINATOR Office Visit [facility] Primary Care [place] [address] [place] [phone] Joanna Mckeon NP [address] [place] [address] [address] [place] [address] documented as of this encounter Visit Diagnoses [...] Dorsogluteal documented in this encounter Care Teams Resume Specialist Relationship Specialty Start Date End Date Joanna Mckeon NP PCP - General Nurse Practitioner Family 07/13/23 documented as of this encounter
--- OUTSIDE RECORDS SUMMARY | 2024-08-26 09:58 | XMS_ITS | Encounter Summary ---
Author Organization [facility] Address [address] [place] [address] Care Team Providers Care Personnel Adviser Name Role Phone Joanna Mckeon LAW ENFORCEMENT OFFICER Primary Care Provider +1- [phone] Reason for Visit * Reason Comments Hypertension 3mo, not due to till next week but will be out of town next week. Encounter Details Date Type Department Care Team (Late st Contact Info) Description 03/29/2024 10:30 AM CDT Office Visit [facility] Primary Care [address] [place] [phone] Joanna Mckeon NP [address] [place] [address] [address] [place], [place] [address] Sharri Watson NP [address] [place] [address] [address] [place], [place] [phone] Hypertension, unspecified type (Primary Dx); IGGY (generalized [...] through Care Everywhere. * Managing Anxiety Adult (Polish) * DASH Eating Plan (Polish) * SMOKING CESSATION, TIPS FOR SUCCESS ([place]IZ[place]) documented in this encounter Progress Notes * [...] st Contact Info) Description 09/26/2024 10:30 AM PUNCH OPERATOR Office Visit [facility] Primary Care [address] [place] [address] Joanna Mckeon NP [address] [place] [address] [address] [place] [address] documented as of this encounter Visit Diagnoses Diagnosis Hypertension, unspecified type- Primary IGGY (generalized anxiety disorder) Generalized anxiety disorder Alcoholism (HCC) Other and unspecified alcohol dependence, unspecified drinking behavior Smoker Tobacco use disorder documented in this encounter Care Teams Personnel Adviser Relationship Specialty Start Date End Date Joanna Mckeon NP PCP - General Nurse Practitioner Family 07/13/23 documented as of this encounter
--- OUTSIDE RECORDS SUMMARY | 2024-08-26 09:58 | XMS_ITS | Encounter Summary ---
Author Organization [facility] Address [address] [place] [address] Care Team Providers Care Internal Communications Manager Name Role Phone Joanna Mckeon NP Primary Care Provider +1- [phone] Reason for Visit * Reason Comments Med Refill Encounter Details Date Type Department Care Team (Late st Contact Info) Description 10/06/2023 [facility]ill [facility] Primary Care [place] [address] [place] [phone] Joanna Mckeon NP [address] [place] [address] Hypertension, unspecified type; Depression, unspecified depression [...] st Contact Info) Description 09/26/2024 10:30 AM DIRECTOR ENTERPRISE SYSTEMS Office Visit [facility] Primary Care [place] [address] [place] [address] Joanna Mckeon NP [address] [place] [address] documented as of this encounter Visit Diagnoses Diagnosis Hypertension, unspecified type Depression, unspecified depression type documented in this encounter Care Teams Internal Communications Manager Relationship Specialty Start Date End Date Joanna Mckeon NP PCP - General Nurse Practitioner Family 07/13/23 documented as of this encounter
--- OUTSIDE RECORDS SUMMARY | 2024-08-26 09:58 | XMS_ITS | Encounter Summary ---
Author Organization [facility] Address [facility] [place] [address] Care Team Providers Care Senior Vice President & General Counsel Name Role Phone Cody Simms Primary Care Provider Reason for Visit * Reason Comments Acute Intoxication Encounter Details Date Type Department Care Team (Late st Contact Info) Description 03/14/2022 9:56 PM CDT - 03/15/2022 12:09 AM CDT Emergency [facility] [address] [phone] Karlo Alvarado MD [address] [place] [address] Alcohol abuse (Primary Dx) Discharge Disposition: [...] through Care Everywhere. * Alcohol Use Disorder (Cameroonian) documented in this encounter ED Notes * [...] he will be able to come and pharmacy picking technician patient in about an hour and a half. Gogo Schaefer RN 03/14/222214 * Karlo Alvarado MD - 03/14/2022 10:04 PM CDT HPI Chief Complaint Patient presents with ??? Acute Intoxication 51 year-old male presents with possible SI. 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 PD was possibly going to take him to longterm. He then told PD that he was suicidal. The patient states that hedid not mean it and is not suicidal. He denies HI and/or hallucinations. He states that he just wants to go home. Signed Nursing Notes Aquilino Deutsch CAREER CONSULTANT 03/14/2022 22:00 Ems states, he got caught [...] st Contact Info) Description 09/26/2024 10:30 AM VISUAL EFFECTS EDITOR Office Visit [facility] Primary Care [address] [place] [address] Joanna Mckeon NP [address] [place] [address] [address] [place], [place] [address] documented as of this encounter Visit Diagnoses Diagnosis Alcohol abuse- Primary Nondependent alcohol abuse, unspecified drinking behavior documented in this encounter Care Teams Senior Vice President & General Counsel Relationship Specialty Start Date End Date Cody Simms PA [address] [place] [address] PCP - General Physician Sueding Machine Tender 02/13/21 07/12/23 documented as of this encounter
--- OUTSIDE RECORDS SUMMARY | 2024-08-26 09:58 | XMS_ITS | Encounter Summary ---
Author Organization [facility] Address [address] [place] [address] Care Team Providers Care Web Content Coordinator Name Role Phone Joanna Mckeon COMMONWEALTH ATTORNEY Primary Care Provider +1- [phone] Reason for Visit * Reason Comments Medication [...] st Contact Info) Description 07/21/2023 2:15 PM FLIGHT ATTENDANT Office Visit [facility] Primary Care [address] [place] [address] Joanna Mckeon NP [address] [place] [address] Dizziness (Primary Dx); Hypertension, unspecified type Social [...] Comments Blood Pressure 128/82 07/21/2023 2:38 PM FLIGHT ATTENDANT Pulse 81 07/21/2023 2:38 PM FLIGHT ATTENDANT Temperature 36.9 ??C (98.4 ??F) 07/21/2023 2:38 PM CS T Respiratory Rate 16 07/21/2023 2:38 PM FLIGHT ATTENDANT Oxygen Saturation 97% 07/21/2023 2:38 PM FLIGHT ATTENDANT Inhaled Oxygen Concentration - - Weight 80.5 kg (177 lb 6.4 oz) 07/21/2023 2:38 P M FLIGHT ATTENDANT Height 177.8 cm (5' 10 ) 07/21/2023 2:38 PM FLIGHT ATTENDANT Body Mass Index 25.45 07/21/2023 2:38 PM FLIGHT ATTENDANT documented in this encounter Patient Instructions * Patient Instructions* Joanna Mckeon NP - 07/21/2023 2:15 PM FLIGHT ATTENDANT Stop Losartan HT ATTENDANT documented in this encounter Progress Notes [...] and/or morbidity or mortality to be moderate. HT ATTENDANT documented in this encounter Plan of Treatment Upcoming Encounters Date Type Department Care Team (Late st Contact Info) Description 09/26/2024 10:30 AM FLIGHT ATTENDANT Office Visit [facility] Primary Care [address] [facility] [address] [place] [address] Joanna Mckeon NP [address] [place] [address] [address] [place] [address] Scheduled Orders Name Type Priority Associated Diagnoses Orde r Schedule BACK OFFICE EKG COMPLETE ECG Routine Hypertension, unspecified type Dizziness Ordered: 07/21/2023 documented as of this encounter Visit Diagnoses Diagnosis Dizziness- Primary Dizziness and giddiness Hypertension, unspecified type documented in this encounter Care Teams Web Content Coordinator Relationship Specialty Start Date End Date Joanna Mckeon NP PCP - General Nurse Practitioner Family 07/13/23 documented as of this encounter
--- OUTSIDE RECORDS SUMMARY | 2024-08-26 09:58 | XMS_ITS | Encounter Summary ---
Author Organization [facility] Address [address] [place] [address] Care Team Providers Care Edger Machine Operator Name Role Phone Joanna Mckeon PROPERTY DISPOSAL MANAGER Primary Care Provider +1- [phone] Reason for Visit * Reason Comments Alcohol [...] Description 03/06/2024 3:15 PM CDT Office Visit [facility] Primary Care [address] [place] [address] Joanna Mckeon NP [address] [place] [address] Alcoholism (HCC) (Primary Dx) Social History Tobacco [...] this encounter Progress Notes * Joanna Mckeon, PROPERTY DISPOSAL MANAGER - 03/06/2024 3:15 PM CDT Images from [...] st Contact Info) Description 09/26/2024 10:30 AM SALES PROCESS MANAGER Office Visit [facility] Primary Care [address] [place] [phone] Joanna Mckeon NP [address] [place] [address] [address] [place] [address] documented as of this encounter Visit Diagnoses Diagnosis Alcoholism (HCC)- Primary Other and unspecified alcohol dependence, unspecified drinking behavior documented in this encounter Care Teams Edger Machine Operator Relationship Specialty Start Date End Date Joanna Mckeon NP PCP - General Nurse Practitioner Family 07/13/23 documented as of this encounter
--- OUTSIDE RECORDS SUMMARY | 2024-08-26 09:58 | XMS_ITS | Encounter Summary ---
Author Organization [facility] Address [address] [place] [address] Care Team Providers Care Podiatric Technician Name Role Phone Joanna Mckeon DRY TALC RACKER Primary Care Provider +1- [phone] Reason for Visit * Reason Comments ER Follow-up ER follow up for bro chad right ankle. Encounter Details Date Type Department Care Team (Late st Contact Info) Description 08/14/2024 12:00 PM DIRECTORY CLERK Office Visit [facility] Primary Care [address] [place] [phone] Joanna Mckeon NP [address] [place] [address] Closed fracture of distal end of right [...] Comments Blood Pressure 128/76 08/14/2024 12:15 PM DIRECTORY CLERK Pulse 93 08/14/2024 12:15 PM DIRECTORY CLERK Temperature 36.6 ??C (97.8 ??F) 08/14/2024 12:[address] Respiratory Rate 18 08/14/2024 12:15 PM DIRECTORY CLERK Oxygen Saturation 97% 08/14/2024 12:15 PM DIRECTORY CLERK Inhaled Oxygen Concentration - - Weight - - Height - - Body Mass Index - - documented in this encounter Progress Notes * Joanna Mckeon NP - 08/14/2024 12:00 PM CST [...] He has an appointment scheduled for at [facility] on August 21. After he left clinic he called to say he was going to a Walk In Clinic in [facility]. He has family there and states [...] and/or morbidity or mortality to be minimal. CTORY CLERK documented in this encounter Plan of Treatment Upcoming Encounters Date Type Department Care Team (Late st Contact Info) Description 09/26/2024 10:30 AM DIRECTORY CLERK Office Visit [facility] Primary Care [address] [place] [phone] Joanna Mckeon NP [address] [place] [address] [address] [place] [address] documented as of this encounter Visit Diagnoses Diagnosis Closed fracture of distal end of right fibula, unspecified fracture morphology, initial encounter- Primary documented in this encounter Care Teams Podiatric Technician Relationship Specialty Start Date End Date Joanna Mckeon NP PCP - General Nurse Practitioner Family 07/13/23 documented as of this encounter
--- OUTSIDE RECORDS SUMMARY | 2024-08-26 09:58 | XMS_ITS | Encounter Summary ---
Author Organization [facility] Address [address] [place] [address] Care Team Providers Care Auto Claims Adjuster Name Role Phone Cody Simms Primary Care Provider [phone] Reason for Visit * Reason Comments Snoring Sleep Apnea Sleep Study Excessive Daytime Sleepiness Insomnia * Sleep Study (Routine) - Closed Specialty Diagnoses / Procedures Referred By Elieser payton Referred To Contact Sleep Medicine Diagnoses Obstructive sleep apnea Procedures Polysomnography Cody Simms PA [address] [place] [address] Phone: tel: fax: Referral ID Status Reason Start Date Expiration Date Visits Re quested Visits Authorized [id number] Closed 01/03/2021 04/04/2021 1 1 Encounter Details Date Type Department Care Team ([facility] st Contact Info) Description 02/13/2021 7:30 PM CDT Treatment [facility] Sleep Study [place] [email or web address] [address] Obstructive sleep apnea Social History [...] st Contact Info) Description 09/26/2024 10:30 AM PIGGERY WORKER Office Visit [facility] Primary Care [place] [address] [place] [phone] Joanna Mckeon NP 1007 [facility] [address] [place] [address] documented as of this encounter Visit Diagnoses Diagnosis Obstructive sleep apnea Obstructive sleep apnea (adult) (pediatric) documented in this encounter Care Teams Auto Claims Adjuster Relationship Specialty [place] [address] [place] [address] PCP - General Physician Bat Lathe Operator 02/13/21 07/12/23 documented as of this encounter
--- OUTSIDE RECORDS SUMMARY | 2024-08-26 09:58 | XMS_ITS | Encounter Summary ---
Author Organization [facility] Address [address] [place] [address] Care Team Providers Care Supervisor Paper Products Name Role Phone Joanna Mckeon NP Primary Care Provider +1- [phone] Reason for Visit * Reason Comments Injections Patient in for testo sterone injection. Encounter Details Date Type Department Care Team (Latest Contact Info) Description 05/11/2024 10:00 AM CDT Clinical Support [facility] Primary Care [address] [place] [address] Nurse, [facility] Testosterone deficiency (Primary Dx) Social History Tobacco [...] st Contact Info) Description 09/26/2024 10:30 AM CASH MANAGEMENT ASSOCIATE Office Visit [facility] Primary Care [address] [place] [address] Joanna Mckeon NP 1007 [facility] [address] [place], [place] [address] documented as of this encounter Visit Diagnoses [...] Dorsogluteal documented in this encounter Care Teams Supervisor Paper Products Relationship Specialty Start Date End Date Joanna Mckeon NP PCP - General Nurse Practitioner Family 07/13/23 documented as of this encounter
--- OUTSIDE RECORDS SUMMARY | 2024-08-26 09:58 | XMS_ITS | Encounter Summary ---
Author Organization [facility] Address [address] [place] [address] Care Team Providers Care Newsagent Name Role Phone Joanna Mckeon FARROWING WORKER Primary Care Provider +1- [phone] Reason for Visit * Reason Comments Depression [...] (Latest Contact Info) Description 07/13/2023 11:15 AM ACCOUNTANT COST Office Visit [facility] Primary Care [address] [place] [address] Joanna Mckeon NP [address] [place] [address] IGGY (generalized anxiety disorder) (Primary Dx); Hypertriglyceridemia; [...] Comments Blood Pressure 124/76 07/13/2023 11:35 AM ACCOUNTANT COST Pulse 80 07/13/2023 11:35 AM ACCOUNTANT COST Temperature 37 ??C (98.6 ??F) 07/13/2023 11:35 AM ACCOUNTANT COST Respiratory Rate 16 07/13/2023 11:35 AM ACCOUNTANT COST Oxygen Saturation 97% 07/13/2023 11:35 AM ACCOUNTANT COST Inhaled Oxygen Concentration - - Weight 81.2 kg (179 lb) 07/13/2023 11:35 AM ACCOUNTANT COST Height 177.8 cm (5' 10 ) 07/13/2023 11:35 AM ACCOUNTANT COST Body Mass Index 25.68 07/13/2023 11:35 AM ACCOUNTANT COST documented in this encounter Progress Notes * [...] and/or morbidity or mortality to be moderate. UNTANT COST documented in this encounter Plan of Treatment Upcoming Encounters Date Type Department Care Team (Late st Contact Info) Description 09/26/2024 10:30 AM ACCOUNTANT COST Office Visit [facility] Primary Care [address] [place] [phone] Joanna Mckeon NP [address] [place] [address] [address] [place] [address] documented as of this encounter Results * Vitamin D 25 Hydroxy (07/13/2023 12:54 PM ACCOUNTANT COST) Vitamin D 25-Hydroxy 30.0 30.0 - 100.0 ng/mL 07/13/2023 6:47 PM ACCOUNTANT COST [facility] Blood Venous blood specimen / Unknown Venipuncture / Unknown 07/13/2023 12:54 PM ACCOUNTANT COST 07/13/2023 12:54 PM ACCOUNTANT COST Joanna Mckeon NP LAB BLOOD ORDERABLES Final Result Performing Organization Address City/State/[facility] Co de Phone Number [address] [address] * (ABNORMAL) Urinalysis (07/13/2023 12:42 PM ACCOUNTANT COST) Color, Urine Light Yellow Colorless, Light Yellow, Yellow, Carol 07/13/2023 2:07 PM ACCOUNTANT COST [facility] Appearance, Urine Clear Clear 07/13/2023 2:07 PM ACCOUNTANT COST [facility] Glucose, Urine Negative Negative mg/dL 07/13/2023 2:07 PM ACCOUNTANT COST [facility] Bilirubin, Urine Negative Negative 07/13/20 2:07 PM [facility] Ketone Negative Negative mg/dL 07/13/2023 2:07 PM [facility] Specific [place],Urine <=1.005(A) 1.010 - 1.025 07/13/2023 2:07 PM [facility] Occult Blood Urine Negative Negative 07/13/2023 2:07 PM [facility] pH,Urine 6.0 5 - 7.5 [pH] 07/13/2023 2:07 PM [facility] Protein, Urine Negative Negative mg/dL 07/13/2023 2:07 PM [facility] Urobilinogen 0.2 <1.1 mg/dL 07/13/2023 2:07 PM [facility] Nitrite, Urine Negative Negative 07/13/2023 2:07 PM [facility] Leukocyte Esterase, Urine Negative Negative 07/13/2023 2:07 PM [facility] Urine Non-blood Collection / Unknown 07/13/2023 12:42 PM ACCOUNTANT COST 07/13/2023 12:42 PM ACCOUNTANT COST us Joanna Mckeon NP LAB URINE ORDERABLES Final Result [facility] [address] [place] [address], * CMP (07/13/2023 12:42 PM ACCOUNTANT COST) Sodium 143 136 - 145 mmol/L 07/13/2023 2:47 PM [facility] Potassium 4.5 3.5 - 5.1 mmol/L 07/13/2023 2:47 PM [facility] Chloride 107 98 - 107 mmol/L 07/13/2023 2:47 PM [facility] Carbon Dioxide 30 21 - 32 mmol/L 07/13/2023 2:47 PM [facility] Blood Urea Nitrogen 14 7 - 18 mg/dL 07/13/2023 2:47 PM [facility] Creatinine 1.28 0.55 - 1.30 mg/dL 07/13/2023 2:47 PM [facility] Glucose 94 74 - 106 mg/dL 07/13/2023 2:47 PM [facility] Calcium 9.3 8.5 - 10.1 mg/dL 07/13/2023 2:47 PM [facility] AST/SGOT 15 15 - 37 U/L 07/13/2023 2:47 PM [facility] ALT/SGPT 33 13 - 61 U/L 07/13/2023 2:47 PM [facility] Alk Phos 80 45 - 117 U/L 07/13/2023 2:47 PM [facility] Total Protein 7.6 6.4 - 8.2 g/dL 07/13/2023 2:47 PM [facility] Albumin 4.0 3.4 - 5.0 g/dL 07/13/2023 2:47 PM [facility] Bilirubin,Total 0.9 0.2 - 1.0 mg/dL 07/13/2023 2:47 PM [facility] GFR Estimate (CKD-EPI) 68 mL/min 07/13/2023 2:47 PM [facility] Blood Venous blood specimen / Unknown Venipuncture / Unknown 07/13/2023 12:42 PM ACCOUNTANT COST 07/13/2023 12:42 PM ACCOUNTANT COST us Joanna Mckeon NP LAB BLOOD ORDERABLES Final Result [facility] [address] [place] [address], * Free T4 (07/13/2023 12:42 PM ACCOUNTANT COST) Free T4 1.01 0.76 - 1.46 ng/dL 07/13/2023 2:47 PM [facility] Blood Venous blood specimen / Unknown Venipuncture / Unknown 07/13/2023 12:42 PM ACCOUNTANT COST 07/13/2023 12:42 PM ACCOUNTANT COST us Joanna Mike FARROWING WORKER LAB BLOOD ORDERABLES Final Result [facility] [address] [place] [address], * TSH (07/13/2023 12:42 PM ACCOUNTANT COST) Pathologist [facility] TSH 0.558 0.358 - 3.740 uIU/mL 07/13/2023 2:47 PM [facility] Blood Venous blood specimen / Unknown Venipuncture / Unknown 07/13/2023 12:42 PM ACCOUNTANT COST 07/13/2023 12:42 PM ACCOUNTANT COST Joanna Mckeon FARROWING WORKER LAB BLOOD ORDERABLES Final Result Performing Organization Address [facility]/ZIP Co de Phone Number [facility] [address] [place] [address], * (ABNORMAL) Lipid Panel (07/13/2023 12:42 PM ACCOUNTANT COST) [facility] Triglycerides 144 30 - 150 mg/dL 07/13/2023 2:47 PM [facility] Cholesterol 201(H) 0 - 200 mg/dL 07/13/2023 2:47 PM [facility] HDL Cholesterol 38(L) 40 - 59 mg/dL 07/13/2023 2:47 PM [facility] LDL Cholesterol (Calc) 134 >=100 mg/dL 07/13/2023 2:47 PM [facility] Blood Venous blood specimen / Unknown Venipuncture / Unknown 07/13/2023 12:42 PM ACCOUNTANT COST 07/13/2023 12:42 PM ACCOUNTANT COST Joanna Mckeon NP LAB BLOOD ORDERABLES Final Result Performing Organization Address City/[facility]/ZIP Co de Phone Number [facility] [address] [place] [address], documented in this encounter Visit Diagnoses Diagnosis IGGY (generalized anxiety disorder)- Primary Generalized anxiety disorder Hypertriglyceridemia Pure hyperglyceridemia Hypovitaminosis D Unspecified vitamin D deficiency Hypertension, unspecified type Chronic prescription benzodiazepine use Vertigo Dizziness and giddiness documented in this encounter Care Teams Newsagent Relationship Specialty Start Date End Date Joanna Mckeon NP PCP - General Nurse Practitioner Family 07/13/23 documented as of this encounter
--- OUTSIDE RECORDS SUMMARY | 2024-08-26 09:58 | XMS_ITS | Patient Health Record ---
Author Organization [facility] Address [address] [place] [address] Care Team Providers Care Senior Branch Manager Name Role Phone Mahesh Abdul Primary Care Provider Allergies No Known Allergies Reason For Referral [...] Insured Coverage Start Date Coverage End Date [facility] [address] [place] [address] [id number] Hi Velizy Self - patient is the insured 2022
--- OUTSIDE RECORDS SUMMARY | 2024-08-26 09:58 | XMS_ITS | Encounter Summary ---
Author Organization [facility] Address [address] [place] [address] Care Team Providers Care Business Support Associate Name Role Phone Joanna Mckeon NP Primary Care Provider +1- [phone] Reason for Referral * Medication Prior Authorization - Closed Specialty Diagnoses / Procedures Referred By Elieser payton Referred To Contact Diagnoses Testosterone deficiency Joanna Mckeon NP [address] [place] [address] Phone: tel: fax: Referral ID Status Reason Start Date Expiration Date Visits Re quested Visits Authorized [id number] Closed 1 1 Reason for Visit * Reason Comments Erectile Dysfunction Pt here for ED. The doctor (urologist that came to [facility]) he is not seeing. [...] Description 05/10/2024 6:45 PM CDT Office Visit [facility] Primary Care [address] [place] [phone] Joanna Mckeon NP [address] [place] [address] Erectile dysfunction, unspecified erectile dysfunction [...] st Contact Info) Description 09/26/2024 10:30 AM PLASTERER MAINTENANCE Office Visit [facility] Primary Care [address] [place] [address] Joanna Mckeon NP [address] [place] [address] [address] [place] [address] documented as of this encounter Results * (ABNORMAL) Vitamin D 25 Hydroxy (05/11/2024 9:49 AM CDT) Vitamin D 25-Hydroxy 24.9(L) 30.0 - 100.0 ng/mL 05/11/2024 8:06 PM CDT [facility] Blood Venous blood specimen / Unknown Venipuncture / Unknown 05/11/2024 9:49 AM CDT 05/11/2024 9:49 AM CDT Joanna Mckeon COMMAND CENTER OFFICER LAB BLOOD ORDERABLES Final Result [address] [address] * Estradiol (05/11/2024 9:49 AM CDT) Pathologist [facility] Estradiol 37.70 See note below pg/mL 05/11/2024 8:20 PM CDT [facility] Blood Venous blood specimen / Unknown Venipuncture / Unknown 05/11/2024 9:49 AM CDT 05/11/2024 9:49 AM CDT Narrative [facility] - 05/11/2024 8:20 PM CDT FEMALES: ?? [...] BLOOD ORDERABLES Final Result Performing Organization Address City/[facility] Co de Phone Number [facility] [address] [place] [address] * TSH Reflex to FT4 (05/11/2024 9:49 AM CDT) Pathologist [facility] TSH 0.862 0.358 - 3.740 uIU/mL 05/11/2024 5:35 PM CDT [facility] Blood Venous blood specimen / Unknown Venipuncture / Unknown 05/11/2024 9:49 AM CDT 05/11/2024 9:49 AM CDT Joanna Mckeon NP LAB BLOOD ORDERABLES Final Result Performing Organization Address [facility] de Phone Number [facility] [address] [place] [address], * (ABNORMAL) Lipid Panel Reflex to LDL, Direct (05/11/2024 9:49 AM CDT) Triglycerides 385(H) 30 - 150 mg/dL 05/11/2024 5:35 PM CDT [facility] Cholesterol 200 0 - 200 mg/dL 05/11/2024 5:35 PM CDT [facility] HDL Cholesterol 32(L) 40 - 59 mg/dL 05/11/2024 5:35 PM CDT [facility] LDL Cholesterol (Calc) 91 <=100 mg/dL 05/11/2024 5:35 PM CDT [facility] Blood Venous blood specimen / Unknown Venipuncture / Unknown 05/11/2024 9:49 AM CDT 05/11/2024 9:49 AM CDT Joanna Mckeon NP LAB BLOOD ORDERABLES Final Result Performing Organization Address [facility] Co de Phone Number [facility] [address] [place] [address], [place] * (ABNORMAL) CMP (05/11/2024 9:49 AM T) Sodium 135(L) 136 - 145 mmol/L 05/11/2024 5:35 PM [facility] Potassium 4.0 3.5 - 5.1 mmol/L 05/11/2024 5:35 PM [facility] Chloride 100 98 - 107 mmol/L 05/11/2024 5:35 PM [facility] Carbon Dioxide 29 21 - 32 mmol/L 05/11/2024 5:35 PM [facility] Blood Urea Nitrogen 15 7 - 18 mg/dL 05/11/2024 5:35 PM [facility] Creatinine 1.27 0.55 - 1.30 mg/dL 05/11/2024 5:35 PM [facility] Glucose 105 74 - 106 mg/dL 05/11/2024 5:35 PM [facility] Calcium 8.9 8.5 - 10.1 mg/dL 05/11/2024 5:35 PM [facility] AST/SGOT 23 15 - 37 U/L 05/11/2024 5:35 PM [facility] ALT/SGPT 31 13 - 61 U/L 05/11/2024 5:35 PM [facility] Alk Phos 71 45 - 117 U/L 05/11/2024 5:35 PM [facility] Total Protein 7.3 6.4 - 8.2 g/dL 05/11/2024 5:35 PM [facility] Albumin 3.8 3.4 - 5.0 g/dL 05/11/2024 5:35 PM [facility] Bilirubin,Total 0.5 0.2 - 1.0 mg/dL 05/11/2024 5:35 PM [facility] GFR Estimate (CKD-EPI) 68 mL/min 05/11/2024 5:35 PM [facility] Anion Gap Without K 6 2 - 15 mmol/L 05/11/2024 5:35 PM [facility] Blood Venous blood specimen / Unknown Venipuncture / Unknown 05/11/2024 9:49 AM CDT 05/11/2024 9:49 AM CDT Joanna Mckeon COMMAND CENTER OFFICER LAB BLOOD ORDERABLES Final Result [facility] [address] [place] [address], * PSA, Screening (05/11/2024 9:49 AM CDT) Prostate Specific Antigen 0.64 0.00 - 4.00 ng/mL 05/11/2024 5:35 PM CDT [facility] Blood Venous blood specimen / Unknown Venipuncture / Unknown 05/11/2024 9:49 AM CDT 05/11/2024 9:49 AM CDT Joanna Mckeon NP LAB BLOOD ORDERABLES Final Result Performing Organization Address [facility] Co de Phone Number [facility] [address] [place] [address], documented in this encounter Visit Diagnoses Diagnosis Erectile dysfunction, unspecified erectile dysfunction type- Primary Testosterone deficiency Other testicular hypofunction Dyslipidemia Other and unspecified hyperlipidemia Screening for prostate cancer Special screening for malignant neoplasm of prostate Hypertension, unspecified type Hypovitaminosis D Unspecified vitamin D deficiency documented in this encounter Care Teams Business Support Associate Relationship Specialty Start Date End Date Joanna Mckeon NP PCP - General Nurse Practitioner Family 07/13/23 documented as of this encounter
--- OUTSIDE RECORDS SUMMARY | 2024-08-26 09:58 | XMS_ITS | Encounter Summary ---
Author Organization [facility] Address [address] [place] [address] Care Team Providers Care Tube Depatcher Name Role Phone Joanna Mckeon TRAINING ADMINISTRATOR Primary Care Provider +1- [phone] Reason for Visit * Reason Onset Date Comments Results 05/17/2024 Encounter Details Date Type Department Care Team (Late st Contact Info) Description 05/17/2024 Telephone [facility] Primary Care [address] [place] [phone] Velvet Anderson LPN Results Social History Tobacco [...] 9:14 AM CDT Pt notified he will brass pickler vit d otc and he will watch his diet and recheck triglycerides at next appt. Velvet Anderson lpn * Telephone Encounter - Velvet Anderson LPN - 05/17/2024 9:14 AM CDT ----- Message from Velvet Ackerman LPN sent at 05/17/2024 9:04 AM CDT ----- No answer Velvet Anderson lpn ----- Message ----- From: Joanna Mckeon NP Sent: 05/16/2024 10:12 PM CDT To: [facility] Please call with lab results, needs to [...] Sent: 05/16/2024 10:12 PM CDT To: [facility] Please call with lab results, needs to take vitamin D 3 1000 units daily documented in this encounter Plan of Treatment Upcoming Encounters Date Type Department Care Team (Late st Contact Info) Description 09/26/2024 10:30 AM HAMMER SHOP SUPERVISOR Office Visit [facility] Primary Care [address] [place] [phone] Joanna Mckeon NP [address] [place] [address] documented as of this encounter Visit Diagnoses Not on filedocumented in this encounter Care Teams Tube Depatcher Relationship Specialty Start Date End Date Joanna Mckeon NP PCP - General Nurse Practitioner Family 07/13/23 documented as of this encounter
--- OUTSIDE RECORDS SUMMARY | 2024-08-26 09:58 | XMS_ITS | Encounter Summary ---
Author Organization [facility] Address [address] [place] [address] Care Team Providers Care Cardiology Nurse Practitioner Name Role Phone Joanna Mckeon NP Primary Care Provider +1- [phone] Reason for Visit * Reason Comments Hypertension Pt here for 3 month htn check. Chronic bilateral low back p ain without sciatica Pt here for chronic low back pain. Pt states he is not having any pain today. Encounter Details Date Type Department Care Team (Late st Contact Info) Description 01/03/2024 10:45 AM CDT Office Visit [facility] Primary Care [place] [address] [place] [phone] Joanna Mckeon NP [address] [place] [address] Hypertension, unspecified type (Primary Dx); Depression, unspecified [...] st Contact Info) Description 09/26/2024 10:30 AM EDUCATION ASSOCIATE Office Visit [facility] Primary Care [address] [place] [address] Joanna Mckeon NP [address] [place] [address] documented as of this encounter Visit Diagnoses Diagnosis Hypertension, unspecified type- Primary Depression, unspecified depression type IGGY (generalized anxiety disorder) Generalized anxiety disorder Hx of disseminated herpes zoster infection documented in this encounter Care Teams Cardiology Nurse Practitioner Relationship Specialty Start Date End Date Joanna Mckeon NP PCP - General Nurse Practitioner Family 07/13/23 documented as of this encounter
--- OUTSIDE RECORDS SUMMARY | 2024-08-26 09:58 | XMS_ITS | Encounter Summary ---
Author Organization [facility] Address [address] [place] [address] Care Team Providers Care Technical Sales Advisor Name Role Phone Joanna Mckeon REHABILITATION TEAM LEAD Primary Care Provider +1- [phone] Encounter Details Date Type Department Care Team (Late Contact Info) Description 07/05/2024 Telephone [facility] Medical [facility] Family Medicine [address] [place] [address] Joanna Mckeon NP [address] [place] [address] Social History Tobacco Use Types [...] st Contact Info) Description 09/26/2024 10:30 AM AIR SHOVEL OPERATOR Office Visit [facility] Primary Care [address] [place] [address] Joanna Mckeon NP [address] [place] [address] [address] [place] [address] documented as of this encounter Visit Diagnoses Not on filedocumented in this encounter Care Teams Technical Sales Advisor Relationship Specialty Start Date End Date Joanna Mckeon NP PCP - General Nurse Practitioner Family 07/13/23 documented as of this encounter
--- OUTSIDE RECORDS SUMMARY | 2024-08-26 09:58 | XMS_ITS | Encounter Summary ---
Author Organization [facility] Address [address] [place] [address] Care Team Providers Care Flavoring Maker Name Role Phone Joanna Mckeon NP Primary Care Provider +1- [phone] Reason for Visit * Reason Onset Date Comments Results 07/15/2023 Encounter Details Date Type Department Care Team (Late Contact Info) Description 07/15/2023 Telephone [facility] Primary [address] [place] [address] Velvet Anderson LPN Results Social History Tobacco [...] AM CST Pt notified Velvet Anderson lpn FACTURING COST ESTIMATOR * Telephone Encounter - Velvet Anderson LPN - 07/15/2023 10:30 AM CST ----- Message from Joanna Mckoen NP sent at 07/14/2023 8:05 AM MANUFACTURING COST ESTIMATOR ----- Please call with labs, no medication changes needed FACTURING COST ESTIMATOR documented in this encounter Plan of Treatment Upcoming Encounters Date Type Department Care Team (Late st Contact Info) Description 09/26/2024 10:30 AM MANUFACTURING COST ESTIMATOR Office Visit [facility] Primary Care [address] [place] [address] Joanna Mckeon NP [address] [place] [address] documented as of this encounter Visit Diagnoses Not on filedocumented in this encounter Care Teams Flavoring Maker Relationship Specialty Start Date End Date Joanna Mckeon NP PCP - General Nurse Practitioner Family 07/13/23 documented as of this encounter
--- OUTSIDE RECORDS SUMMARY | 2024-08-26 09:58 | XMS_ITS | Encounter Summary ---
Author Organization [facility] Address [address] [place] [address] Care Team Providers Care Cpht Name Role Phone Joanna Mckeon NP Primary Care Provider +1- [phone] Reason for Visit * Reason Comments Injections Patient in for testo sterone injection. Encounter Details Date Type Department Care Team (Latest Contact Info) Description 06/14/2024 2:30 PM CDT Clinical Support [facility] Primary Care [address] [place] [address] Nurse, [facility] Male hypogonadism (Primary Dx) Social History Tobacco [...] st Contact Info) Description 09/26/2024 10:30 AM MANAGER OF INTERNAL AUDIT Office Visit [facility] Primary Care [address] [place] [address] Joanna Mckeon NP [address] [place] [address] [address] [place], [place] [phone] documented as of this encounter Visit Diagnoses [...] Dorsogluteal documented in this encounter Care Teams Cpht Relationship Specialty Start Date End Date Joanna Mckeon NP PCP - General Nurse Practitioner Family 07/13/23 documented as of this encounter
--- OUTSIDE RECORDS SUMMARY | 2024-08-26 09:58 | XMS_ITS | Encounter Summary ---
Author Organization [facility] Address [address] [place] [address] Care Team Providers Care Credit Control Assistant Name Role Phone Joanna Mckeon NP Primary Care Provider +1- [phone] Encounter Details Date Type Department Care Team (Late st Contact Info) Description 08/15/2024 Telephone [facility] Medical Group Family Medicine [address] [place] [address] Joanna Mckeon NP [address] [place] [address] Social History Tobacco Use Types [...] PM CST Provider notified Velvet Anderson lpn RACT CHECKER * Telephone Encounter - Riya Kwok - 08/15/2024 3:08 PM CST John called to leave a message that he is going to [facility] for a walk in clinic. RACT CHECKER documented in this encounter Plan of Treatment Upcoming Encounters Date Type Department Care Team (Late st Contact Info) Description 09/26/2024 10:30 AM ABSTRACT CHECKER Office Visit [facility] Primary Care [address] [place] [phone] Joanna Mckeon NP [address] [place] [address] documented as of this encounter Visit Diagnoses Not on filedocumented in this encounter Care Teams Credit Control Assistant Relationship Specialty Start Date End Date Joanna Mckeon NP PCP - General Nurse Practitioner Family 07/13/23 documented as of this encounter
--- OUTSIDE RECORDS SUMMARY | 2024-08-26 09:58 | XMS_ITS | Encounter Summary ---
Author Organization [facility] althcare Address [address] [place] [address] Care Team Providers Care Oil Bay Technician Name Role Phone Joanna Mckeon HARNESS RIGGER Primary Care Provider +1- [phone] Reason for Visit * Reason Comments IGGY Here for 1 mo follow -up anxiety. Dizziness Here for follow-up d izziness. Still has some but not near as bad as it was. Seems after he stopped the Losartan that it has decreased.he is wondering about increasing his Lisinopril to maybe 7.5. Encounter Details Date Type Department Care Team (Late Contact Info) Description 08/11/2023 11:15 AM ENGINE DISPATCHER Office Visit [facility] Primary Care [address] [place] [phone] Joanna Mckeon NP [address] [place], [place] [id number] Hypertension, unspecified type (Primary Dx); IGGY (generalized anxiety disorder); Depression, unspecified depression type Social History Tobacco [...] Sign Reading Time Taken Comments Blood Pressure 130/78 08/11/2023 11:33 AM ENGINE DISPATCHER Pulse 74 08/11/2023 11:33 AM ENGINE DISPATCHER Temperature 36.7 ??C (98 ??F) 08/11/2023 11:33 AM ENGINE DISPATCHER Respiratory Rate 18 08/11/2023 11:33 AM ENGINE DISPATCHER Oxygen Saturation 98% 08/11/2023 11:33 AM ENGINE DISPATCHER Inhaled Oxygen Concentration - - Weight 83.5 kg (184 lb) 08/11/2023 11:33 AM ENGINE DISPATCHER Height 177.8 cm (5' 10 ) 08/11/2023 11:33 AM ENGINE DISPATCHER Body Mass Index 26.4 08/11/2023 11:33 AM ENGINE DISPATCHER documented in this encounter Progress Notes * Joanna Mckeon NP - 08/11/2023 11:15 AM CST Images from the original note were not included. Patient ID: John Veliz is a 53 y.o. male : 1970 Subjective Chief Complaint Patient presents with ??? IGGY Here for 1 mo follow-up anxiety. ??? Dizziness Here for follow-up dizziness. Still has some but not near as bad as it was. Seems after he stopped the Losartan that it has decreased.he is wondering about increasing his Lisinopril to maybe 7.5. Here for follow up on Hypertension, Anxiety and Dizziness. States dizziness is improving. Hypertension This is a chronic problem. Associated symptoms include anxiety. Pertinent negatives include no blurred vision, chest pain, headaches, palpitations, peripheral edema or shortness of breath. I have reviewed, [...] Negative for congestion, rhinorrhea and sore throat. Eyes: Negative for blurred vision. Respiratory: Negative for cough and shortness of breath. Cardiovascular: Negative for chest pain, palpitations and leg swelling. Gastrointestinal: Negative for abdominal pain, diarrhea, nausea and vomiting. Skin: Negative for rash. Allergic/Immunologic: Positive for environmental allergies. Neurological: Positive for dizziness (improved). Negative for seizures, weakness and headaches. Psychiatric/Behavioral: Positive for dysphoric mood. Negative for suicidal ideas. The patient is nervous/anxious. Sees Dr Tanner for counseling Objective Vitals Vitals: 08/11/23 1133 BP: 130/78 BP Location: Left arm Patient Position: Sitting Pulse: 74 Resp: 18 Temp: 36.7 ??C (98 ??F) TempSrc: Temporal SpO2: 98% Weight: 83.5 kg (184 lb) Height: 70 Body mass index is 26.4 kg/m??. Physical [...] normal. Assessment/Plan John was seen today for iggy and dizziness. Diagnoses and all orders for this visit: Hypertension, unspecified type - lisinopriL 5 mg tablet; Take 1 tablet (5 mg total) by mouth daily IGGY (generalized anxiety disorder) - ALPRAZolam (XANAX) 0.5 mg tablet; Take 1 tablet (0.5 mg total) by mouth 3 (three) times a day as needed for anxiety Depression, unspecified depression type - buPROPion (WELLBUTRIN) 75 mg tablet; Take 1 tablet (75 mg total) by mouth daily Return in about 1 month (around 09/11/2023). There are no Patient Instructions on file for this visit. Call with any issues. Return if not improving or if worsening. John voice(s) understanding and agreement with plan of care. Electronically Signed By: Joanna Mckeon NP 08/15/23 6:47 PM Statement for coding/billing: After evaluating the complexity of problems & data addressed, social determinants of health, and management options selected today, I believe the patient's risk of complication and/or morbidity or mortality to be moderate. NE DISPATCHER * Yousuf Peguero MD - 08/11/2023 11:15 AM CST I have reviewed the notes, assessments, and/or procedures performed this visit, and I concur with the documentation. NE DISPATCHER documented in this encounter Plan of Treatment Upcoming Encounters Date Type Department Care Team (Late st Contact Info) Description 09/26/2024 10:30 AM ENGINE DISPATCHER Office Visit [facility] Primary Care [address] [place] [address] Joanna Mckeon NP [address] [place] [address] documented as of this encounter Visit Diagnoses Diagnosis Hypertension, unspecified type- Primary IGGY (generalized anxiety disorder) Generalized anxiety disorder Depression, unspecified depression type documented in this encounter Care Teams Oil Bay Technician Relationship Specialty Start Date End Date Joanna Mckeon NP PCP - General Nurse Practitioner Family 07/13/23 documented as of this encounter
--- OUTSIDE RECORDS SUMMARY | 2024-08-26 09:58 | XMS_ITS | Encounter Summary ---
Author Organization [facility] Address [address] [place] [address] Care Team Providers Care Adjunct Professor Name Role Phone Joanna Mckeon NP Primary Care Provider +1- [phone] Reason for Visit * Reason Comments Hypertension Here for recheck htn .Needs refill on Lisinopril. Anxiety Here for recheck. Ne eds Xanax refilled. Has 1 refill on Wellbutrin. Encounter Details Date Type Department Care Team (Late st Contact Info) Description 10/06/2023 10:00 AM TAILER IN Office Visit [facility] Primary Care [address] [place] [address] Joanna Mckeon NP [address] [place] [address] Hypertension, unspecified type; Depression, unspecified depression type; [...] Comments Blood Pressure 134/80 10/06/2023 10:05 AM TAILER IN Pulse 70 10/06/2023 10:05 AM TAILER IN Temperature 36.6 ??C (97.8 ??F) 10/06/2023 10:[address] Respiratory Rate 18 10/06/2023 10:05 AM TAILER IN Oxygen Saturation 98% 10/06/2023 10:05 AM TAILER IN Inhaled Oxygen Concentration - - Weight 84.8 kg (187 lb) 10/06/2023 10:05 AM TAILER IN Height 177.8 cm (5' 10 ) 10/06/2023 10:05 AM TAILER IN Body Mass Index 26.83 10/06/2023 10:05 AM TAILER IN documented in this encounter Patient Instructions * Attachments The following attachments cannot be sent through Care Everywhere. * DASH Eating Plan (Romanian) * Mediterranean Diet (Romanian) documented in this encounter Progress Notes * [...] and/or morbidity or mortality to be moderate. ER IN documented in this encounter Plan of Treatment Upcoming Encounters Date Type Department Care Team (Late st Contact Info) Description 09/26/2024 10:30 AM TAILER IN Office Visit [facility] Primary Care [address] [place] [address] Joanna Mckeon NP [address] [place] [address] [address] [place] [address] documented as of this encounter Visit Diagnoses Diagnosis Hypertension, unspecified type Depression, unspecified depression type IGGY (generalized anxiety disorder) Generalized anxiety disorder documented in this encounter Care Teams Adjunct Professor Relationship Specialty Start Date End Date Joanna Mckeon NP PCP - General Nurse Practitioner Family 07/13/23 documented as of this encounter
--- OUTSIDE RECORDS SUMMARY | 2024-08-26 09:58 | XMS_ITS | Encounter Summary ---
Author Organization [facility] Address [facility] [place] [address] Care Team Providers Care Cuffer Name Role Phone Cody Simms Primary Care Provider +1- [phone] Encounter Details Date Type Department Care Team [...] st Contact Info) Description 09/26/2024 10:30 AM FORMING FIXER Office Visit [facility] Primary Care [address] [place] [phone] Joanna Mckeon NP [address] [place] [address] documented as of this encounter Visit Diagnoses Not on filedocumented in this encounter Care Teams Cuffer Relationship Specialty Start Date End Date Cody Simms PA [address] [place] [address] PCP - General Physician Continuous Loft Operator 02/13/21 07/12/23 documented as of this encounter
--- OUTSIDE RECORDS SUMMARY | 2024-08-26 09:58 | XMS_ITS | Encounter Summary ---
Author Organization [facility]care Address [address] [place] [address] Care Team Providers Care Hat Cleaner Name Role Phone Joanna Mckeon TAX ASSISTANT Primary Care Provider +1- [phone] Encounter Details Date Type Department Care Team (Late st Contact Info) Description 09/14/2023 Telephone [facility] Primary Care [place] [address] [place] [phone] Joanna Mckeon NP [address] [place] [address] Social History Tobacco Use Types [...] she is off today. Velvet Anderson lpn SETTER SUPERVISOR * Telephone Encounter - Naina Felton - 09/14/2023 6:16 PM CST Patient called wanting conform his DX on his x ray results please [phone] SETTER SUPERVISOR documented in this encounter Plan of Treatment Upcoming Encounters Date Type Department Care Team (Late st Contact Info) Description 09/26/2024 10:30 AM TILE SETTER SUPERVISOR Office Visit [facility] Primary Care [address] [place] [address] Joanna Mckeon NP [address] [place] [address] documented as of this encounter Visit Diagnoses Not on filedocumented in this encounter Care Teams Hat Cleaner Relationship Specialty Start Date End Date Joanna Mckeon NP PCP - General Nurse Practitioner Family 07/13/23 documented as of this encounter
--- OUTSIDE RECORDS SUMMARY | 2024-08-26 09:58 | XMS_ITS | Encounter Summary ---
Author Organization [facility] Address [address] [place] [address] Care Team Providers Care Production Grip Name Role Phone Joanna Mckeon INSPECTOR EYEGLASS Primary Care Provider +1- [phone] Reason for Visit * Reason Comments Med Refill Encounter Details Date Type Department Care Team (Late st Contact Info) Description 02/25/2024 Refill [facility] Primary Care [place] [address] [place] [phone] Joanna Mckeon NP [address] [place] [id number] Hypertension, unspecified type Social History Tobacco Use [...] st Contact Info) Description 09/26/2024 10:30 AM LASER CUTTER Office Visit [facility] Primary Care [place] [address] [place] [phone] Joanna Mckeon NP [address] [place] [address] documented as of this encounter Visit Diagnoses Diagnosis Hypertension, unspecified type documented in this encounter Care Teams Production Grip Relationship Specialty Start Date End Date Joanna Mckeon NP PCP - General Nurse Practitioner Family 07/13/23 documented as of this encounter
--- OUTSIDE RECORDS SUMMARY | 2024-08-26 09:58 | XMS_ITS | Encounter Summary ---
Author Organization [facility] Address [address] [place] [address] Care Team Providers Care Brim Curler Name Role Phone Joanna Mckeon MARKET RESEARCH COORDINATOR Primary Care Provider +1- [phone] Reason for Visit * Reason Comments Hypertension 1mo follow up Encounter Details Date Type Department Care Team (Late st Contact Info) Description 09/08/2023 2:30 PM CERTIFIED WELLNESS PROGRAM MANAGER Office Visit [facility] Primary Care [place] [address] [place] [phone] Joanna Mckeon NP [address] [place] [address] Chronic bilateral low back pain without sciatica [...] Comments Blood Pressure 128/76 09/08/2023 2:39 PM CERTIFIED WELLNESS PROGRAM MANAGER Pulse 76 09/08/2023 2:39 PM CERTIFIED WELLNESS PROGRAM MANAGER Temperature 36.2 ??C (97.1 ??F) 09/08/2023 2:39 PM CS T Respiratory Rate 16 09/08/2023 2:39 PM CERTIFIED WELLNESS PROGRAM MANAGER Oxygen Saturation 96% 09/08/2023 2:39 PM CERTIFIED WELLNESS PROGRAM MANAGER Inhaled Oxygen Concentration - - Weight 84.4 kg (186 lb) 09/08/2023 2:39 PM CERTIFIED WELLNESS PROGRAM MANAGER Height 177.8 cm (5' 10 ) 09/08/2023 2:39 PM CERTIFIED WELLNESS PROGRAM MANAGER Body Mass Index 26.69 09/08/2023 2:39 PM CERTIFIED WELLNESS PROGRAM MANAGER documented in this encounter Patient Instructions * Patient Instructions* Joanna Mckeon NP - 09/08/2023 2:30 PM CERTIFIED WELLNESS PROGRAM MANAGER May use Ibuprofen and Lidocaine patch as needed IFIED WELLNESS PROGRAM MANAGER * Attachments The following attachments cannot be sent through Care Everywhere. * Low Back Sprain or Strain Rehab (Scottish) documented in this encounter Progress Notes * [...] and/or morbidity or mortality to be moderate. IFIED WELLNESS PROGRAM MANAGER documented in this encounter Plan of Treatment Upcoming Encounters Date Type Department Care Team (Late st Contact Info) Description 09/26/2024 10:30 AM CERTIFIED WELLNESS PROGRAM MANAGER Office Visit [facility] Primary Care [address] [address] Joanna Mckeon NP [address] [place] [address] [address] [place] [address] documented as of this encounter Procedures Procedure Name Priority Date/Time Associated Diagnosis Comments XR SPINE LUMBAR COMPLETE 4+ VW Routine 09/08/2023 3:44 PM CERTIFIED WELLNESS PROGRAM MANAGER Chronic bilateral low back pain without sciatica documented in this encounter Results * X-ray lumbar spine complete 4+ views (09/08/2023 3:44 PM CERTIFIED WELLNESS PROGRAM MANAGER) Anatomical Region Laterality Modality L-spine Digital Radiogra phy Narrative 09/09/2023 8:49 AM CERTIFIED WELLNESS PROGRAM MANAGER EXAM: LUMBAR SPINE RADIOGRAPHS TECHNIQUE: Five views. [...] disorder documented in this encounter Care Teams Brim Curler Relationship Specialty Start Date End Date Joanna Mckeon NP PCP - General Nurse Practitioner Family 07/13/23 documented as of this encounter
--- OUTSIDE RECORDS SUMMARY | 2024-08-26 09:58 | XMS_ITS | Encounter Summary ---
Author Organization [facility] Address [address] [place] [address] Care Team Providers Care Pot Operator Name Role Phone Joanna Mckeon NP Primary Care Provider +1- [phone] Reason for Visit * Reason Comments Hypertension Pt here for htn chec k. Depression Pt here for depressi on check. He would like to increase the Wellbutrin to 150mg daily. Encounter Details Date Type Department Care Team (Late st Contact Info) Description 02/14/2024 4:15 PM CDT Office Visit [facility] Primary Care [address] [place] [address] Joanna Mckeon NP [address] [place] [address] IGGY (generalized anxiety disorder) (Primary Dx) Social [...] he left his Xanax at work in [place]. He is feeling more anxious without his [...] st Contact Info) Description 09/26/2024 10:30 AM SPICE BLENDER Office Visit [facility] Primary Care [address] [place] [phone] Joanna Mckeon NP [address] [place] [address] [address] [place] [address] documented as of this encounter Visit Diagnoses Diagnosis IGGY (generalized anxiety disorder)- Primary Generalized anxiety disorder documented in this encounter Care Teams Pot Operator Relationship Specialty Start Date End Date Joanna Mckeon NP PCP - General Nurse Practitioner Family 07/13/23 documented as of this encounter
--- OUTSIDE RECORDS SUMMARY | 2024-08-26 09:58 | XMS_ITS | Encounter Summary ---
Author Organization [facility] althcare Address [address] [place] [address] Care Team Providers Care Line Technician Name Role Phone Joanna Mckeon RESIDENTIAL CAREGIVER Primary Care Provider +1- [phone] Encounter Details Date Type Department Care Team (Late Contact Info) Description 05/17/2024 Telephone [facility] Primary Care [place] [address] [place] [address] Joanna Mckeon NP [address] [place] [address] [address] [place] [address] Social History Tobacco Use Types [...] of lab results dos: 05/11/24, he will picking belt operator records/sign release documented in this encounter Plan of Treatment Upcoming Encounters Date Type Department Care Team (Late st Contact Info) Description 09/26/2024 10:30 AM IT APPLICATIONS MANAGER Office Visit [facility] Primary Care [address] [address] Joanna Mckeon NP [address] [place] [address] documented as of this encounter Visit Diagnoses Not on filedocumented in this encounter Care Teams Line Technician Relationship Specialty Start Date End Date Joanna Mckeon NP PCP - General Nurse Practitioner Family 07/13/23 documented as of this encounter
--- OUTSIDE RECORDS SUMMARY | 2024-08-26 09:58 | XMS_ITS | Encounter Summary ---
Author Organization [facility] Address [address] [place] [address] Care Team Providers Care Liner Man Name Role Phone Joanna Mckeon FIELD RADIO TECHNICIAN Primary Care Provider +1- [phone] Reason for Visit * Reason Onset Date Comments Med Refill 07/05/2024 Encounter Details Date Type Department Care Team (Late st Contact Info) Description 07/05/2024 Refill [facility] Primary Care [place] [address] [place] [phone] Velvet Anderson LPN Hx of disseminated herpes [...] st Contact Info) Description 09/26/2024 10:30 AM FAST FOOD COOK Office Visit [facility] Primary Care [address] [place] [phone] Joanna Mckeon NP [address] [place] [address] [address] [place] [address] documented as of this encounter Visit Diagnoses Diagnosis Hx of disseminated herpes zoster infection documented in this encounter Care Teams Liner Man Relationship Specialty Start Date End Date Joanna Mckeon NP PCP - General Nurse Practitioner Family 07/13/23 documented as of this encounter
== END 2024-08-21 12:55 | disposition home or self-care (01) ==
PROVIDERS: Visit Provider Orthopaedic Surgery
PROC: (CPT 27792; principal; 2024-08-21 10:00)
DX: S82.61XA Displaced fracture of lateral malleolus of right fibula, initial encounter for closed fracture (principal); I10 Essential (primary) hypertension; G47.33 Obstructive sleep apnea (adult) (pediatric); F41.9 Anxiety disorder, unspecified; F32.A Depression, unspecified; F17.210 Nicotine dependence, cigarettes, uncomplicated; X58.XXXA Exposure to other specified factors, initial encounter
CPT/HCPCS: 27792; 99199; A9270; C1713; J0690; J1100; J1171; J1885; J2003; J2250; J2405; J2704; J3010; J7120

== ENCOUNTER 2024-09-05 10:54 | Outpatient (CLI) | payer BC, SELFPAY ==
--- NOTE | ~2024-09-05 | XR_ITS ---
EXAM: XR ankle RT min 3V DATE: 09/05/2024 11:24 HISTORY: S82.841A - Displaced bimalleolar fracture of right lower ... . COMPARISON: 08/16/2024. FINDINGS: Interval screw and plate fixation of the distal right fibula, without hardware fracture or abnormal perihilar hardware lucency. The fibular fracture is fixed in anatomic alignment. Possible s mall posterior malleolar fracture, in unchanged position Surgical skin jhoana overlying the hardware . Small joint effusion. Ankle soft tissue swelling. Mild scattered degenerative change. IMPRESSION: Status post screw and plate fixation of a distal right fibular fracture, no radiographic evidence of procedure or hardware related complication. Reviewed, dictated and finalized at location K. ER MACHINE OPERATOR IMPRESSION: Status post screw and plate fixation of a distal right fibular frac ture, no radiographic evidence of procedure or hardware related complication.
== END 2024-09-05 10:55 | disposition home or self-care (01) ==
PROVIDERS: Visit Provider Orthopaedic Surgery
DX: S82.841A Displaced bimalleolar fracture of right lower leg, initial encounter for closed fracture (principal); Z98.1 Arthrodesis status
CPT/HCPCS: 73610